=== PATIENT | male | born 1940 | race Hispanic/Latino ===

== ENCOUNTER 2017-01-02 17:14 | Inpatient (IN) | payer MEDICARE ==
--- NOTE | 2017-01-02 17:29 | ED PDOC ---
Arrival/HPI - General Chief Complaint: Anxiety Time Seen by Provider: 01/02/17 17:15 Historian: Patient - History of Present Illness Narrative History of Present Illness (Text): 01/02/17 17:27 76 year old male who denies past medical history presents to the emergency department with shortness of breath and difficulty "catching his breath" for the past three days. Patient states he has had no fever. He also reports cough with yellow sputum. He reports he is a smoker but was never diagnosed with COPD. He states he feels "uneasy in his chest." Time/Duration: < week Symptom Onset: Gradual Symptom Course: Unchanged Modifying Factors (Text): None Past Medical History - Provider Review Nursing Documentation Reviewed: Yes - Psychiatric Hx Substance Use: No (denies) - Surgical History Hx Musculoskeletal Surgery: Yes Family/Social History - Physician Review Nursing Documentation Reviewed: Yes Family/Social History: Unknown Family HX Smoking Status: Heavy Smoker > 10 Cigarettes Daily Hx Alcohol Use: Yes Frequency of alcohol use: Daily Hx Substance Use: No (denies) Allergies/Home Meds Allergies/Adverse Reactions: Allergies No Known Allergies Allergy (Verified 01/02/17 17:22) Home Medications: Home Meds Medication Instructions Recorded Confirmed DiphenhydrAMINE [Benadryl] 25 mg PO DAILY 01/02/17 01/02/17 Oxycodone HCl/Acetaminophen 1 each PO DAILY PRN 01/02/17 01/02/17 [Percocet 10-325 mg Tablet] Review of Systems - Physician Review All systems were reviewed & negative as marked: Yes - Review of Systems Respiratory: SOB, Cough, Sputum Cardiovascular: Other (Uneasiness in chest) Gastrointestinal: absent: Abdominal Pain Physical Exam Vital Signs Reviewed: Yes Vital Signs Temp Pulse Resp BP Pulse Ox 01/02/17 21:36 97.6 F 81 18 161/71 H 95 01/02/17 17:25 97.7 F 91 H 18 168/97 H 97 Temperature: Afebrile Blood Pressure: Normal Pulse: Regular Respiratory Rate: Normal Appearance: Positive for: Well-Appearing, Non-Toxic Pain Distress: None Mental Status: Positive for: Alert and Oriented X 3 - Systems Exam Head: Present: Atraumatic, Normocephalic Pupils: Present: PERRL Extroacular Muscles: Present: EOMI Conjunctiva: Present: Normal Mouth: Present: Moist Mucous Membranes Neck: Present: Normal Range of Motion Respiratory/Chest: Present: Good Air Exchange, Wheezes, Other (Diminished breath sounds bilaterally). No: Respiratory Distress, Accessory Muscle Use Cardiovascular: Present: Regular Rate and Rhythm, Normal S1, S2. No: Murmurs Abdomen: Present: Normal Bowel Sounds. No: Tenderness, Distention, Peritoneal Signs Back: Present: Normal Inspection Upper Extremity: Present: Normal Inspection. No: Cyanosis, Edema Lower Extremity: Present: Normal Inspection. No: Edema Neurological: Present: GCS=15, CN II-XII Intact, Speech Normal Skin: Present: Warm, Dry, Normal Color. No: Rashes Psychiatric: Present: Alert, Oriented x 3, Normal Insight, Normal Concentration Medical Decision Making ED Course and Treatment: Impression: 76 year old male who denies past medical history presents to the emergency department with shortness of breath and difficulty "catching his breath" for the past three days. Differential Diagnosis included but are not limited to: COPD Plan: -- EKG, Chest X-ray -- Duoneb, Solumedrol -- Labs -- Reassess and disposition Progress Notes: - Lab Interpretations Lab Results: 01/03/17 10:30 01/04/17 09:00 Lab Results 01/04/17 09:00: Sodium 133, Chloride 92 L, Potassium 3.4 L, Carbon Dioxide 32, Anion Gap 12, BUN 20, Creatinine 1.0, Est GFR ( Amer) > 60, Est GFR (Non- Af Amer) > 60, Random Glucose 108, Calcium 8.7, Total Bilirubin 0.8, AST 41, ALT 33, Alkaline Phosphatase 63, Total Protein 7.0, Albumin 3.8, Globulin 3.2, Albumin/Globulin Ratio 1.2 01/04/17 07:00: Prostate Specific Ag 0.3, Free T4 0.85, TSH 3rd Generation 1.24 01/04/17 07:00: Magnesium 2.4 H 01/03/17 11:40: Triglycerides 32 L, Cholesterol 133, LDL Cholesterol Direct 66, HDL Cholesterol 55 01/03/17 10:30: Sodium 130 L, Chloride 91 L, Potassium 3.0 L, Carbon Dioxide 29 , Anion Gap 13, BUN 17, Creatinine 1.0, Est GFR ( Amer) > 60, Est GFR ( Non-Af Amer) > 60, Random Glucose 238 H, Calcium 8.8, Total Bilirubin 0.8, AST 36, ALT 31, Alkaline Phosphatase 63, Total Protein 6.9, Albumin 3.7, Globulin 3.1, Albumin/Globulin Ratio 1.2 01/03/17 10:30: WBC 8.5 D, RBC 4.80, Hgb 16.3, Hct 44.4, MCV 92.5, MCH 34.0, MCHC 36.7, RDW 13.0, Plt Count 214, MPV 9.8, Gran % 95.8 H, Lymph % (Auto) 2.5 L , [place] % (Auto) 1.7, Eos % (Auto) 0.0 L, Baso % (Auto) 0.0, Gran # 8.12 H, Lymph # 0.2 L, [place] # 0.1, Eos # 0.0, Baso # 0.00 01/02/17 17:35: pO2 58 H, VBG pH 7.42, VBG pCO2 54.0, VBG HCO3 35.0 H, VBG Total CO2 36.7 H, VBG O2 Sat (Calc) 91.3 H, VBG Base Excess 8.7 H, VBG Potassium 3.2 L, Sodium 131.0 L, Chloride 93.0 L, Glucose 103, Lactate 1.1, FiO2 21.0, Venous Blood Potassium 3.2 L 01/02/17 17:35: Sodium 130 L, Chloride 90 L, Potassium 3.1 L, Carbon Dioxide 31 , Anion Gap 12, BUN 14, Creatinine 1.0, Est GFR ( Amer) > 60, Est GFR ( Non-Af Amer) > 60, Random Glucose 98, Calcium 9.0, Magnesium 1.8, Total Bilirubin 0.9, AST 49, ALT 39, Alkaline Phosphatase 82, Lactate Dehydrogenase 557, Total Creatine Kinase 262 H, CK-MB (CK-2) 3.2, CK-MB (CK-2) % Cancelled, Troponin I 0.09, NT-Pro-B Natriuret Pep 1030 H, Total Protein 7.4, Albumin 4.2, Globulin 3.2, Albumin/Globulin Ratio 1.3 01/02/17 17:35: PT 10.5, INR 0.97, APTT 26.6 01/02/17 17:35: WBC 5.4, RBC 5.15, Hgb 17.5, Hct 47.3, MCV 91.8, MCH 34.0, MCHC 37.0, RDW 13.0, Plt Count 233, MPV 9.7, Gran % 54.4, Lymph % (Auto) 28.2, [place] % (Auto) 11.5 H, Eos % (Auto) 5.0, Baso % (Auto) 0.9, Gran # 2.93, Lymph # 1.5, [place] # 0.6, Eos # 0.3, Baso # 0.05 01/02/17 17:25: Urine Color Yellow, Urine Appearance Clear, Urine pH 6.0, Ur Specific [place] 1.010, Urine Protein Trace H, Urine Glucose (UA) Negative, Urine Ketones Negative, Urine Blood Trace-lysed H, Urine Nitrate Negative, Urine Bilirubin Negative, Urine Urobilinogen 0.2, Ur Leukocyte Esterase Negative , Urine RBC 0 - 2, Urine WBC 1 - 3, Ur Epithelial Cells 1 - 3, Urine Bacteria Few 01/02/17 16:30: D-Dimer, Quantitative 0.57 H - RAD Interpretation Radiology Orders: 01/02/17 17:25 CXR [CHEST PORTABLE] [RAD] Stat 01/02/17 19:47 ANGIO CHEST PE PROTOCOL [CT] Stat - EKG Interpretation EKG Interpretation (Text): EKG shows NSR at [address]/T wave changes. Interpreted by me. Interpreted by ED Physician: Yes Type: 12 lead EKG - Medication Orders Current Medication Orders: Albuterol/Ipratropium (Duoneb 3 Mg/0.5 Mg (3 Ml) Ud) 3 ml IH [id number] [facility] Last Admin: 01/05/17 02:55 Dose: Not Given Non-Admin Reason: Patient Refused Amlodipine Besylate (Norvasc) 10 mg PO DAILY [facility] Doxycycline Hyclate (Doryx) 100 mg PO Q12 [facility] PRN Reason: Protocol Last Admin: 01/04/17 21:10 Dose: 100 mg Famotidine (Pepcid) 40 mg PO HS [facility] Last Admin: 01/04/17 21:10 Dose: 40 mg Methylprednisolone (Solu-Medrol) 30 mg IVP Q12 [facility] Last Admin: 01/04/17 21:11 Dose: 30 mg Potassium Chloride (K-Dur 20 Meq Er Tab) 20 meq PO BRK [facility] Last Admin: 01/04/17 09:16 Dose: 20 meq Discontinued Medications Albuterol/Ipratropium (Duoneb 3 Mg/0.5 Mg (3 Ml) Ud) 3 ml IH Q15M [facility] Stop: 01/02/17 18:01 Last Admin: 01/02/17 19:22 Dose: 3 ml Albuterol/Ipratropium (Duoneb 3 Mg/0.5 Mg (3 Ml) Ud) 3 ml IH Q6 [facility] Stop: 01/03/17 12:01 Last Admin: 01/03/17 13:26 Dose: 3 ml Alprazolam (Xanax) 0.25 mg PO STAT STA PRN Reason: Protocol Stop: 01/04/17 11:14 Last Admin: 01/04/17 13:20 Dose: 0.25 mg Amlodipine Besylate (Norvasc) 5 mg PO DAILY [facility] Last Admin: 01/04/17 09:16 Dose: 5 mg Enoxaparin Sodium (Lovenox) 30 mg SC DAILY [facility] PRN Reason: Protocol Last Admin: 01/04/17 09:16 Dose: 30 mg Iohexol (Omnipaque 350 100 Ml) Confirm Administered Dose 350 mg .ROUTE .STK-MED ONE Stop: 01/02/17 19:51 Magnesium Citrate (Citrate Of Mag) 300 ml PO ONCE ONE Stop: 01/03/17 10:37 Last Admin: 01/03/17 12:23 Dose: 300 ml Methylprednisolone (Solu-Medrol) 125 mg IVP STAT STA Stop: 01/02/17 17:26 Last Admin: 01/02/17 17:48 Dose: 125 mg Methylprednisolone (Solu-Medrol) 40 mg IVP Q8 [facility] Last Admin: 01/03/17 05:55 Dose: 40 mg Methylprednisolone (Solu-Medrol) 40 mg IVP Q12 [facility] Last Admin: 01/04/17 09:17 Dose: 40 mg Potassium Chloride (K-Dur 20 Meq Er Tab) 40 meq PO STAT STA Stop: 01/02/17 18:15 Last Admin: 01/02/17 18:34 Dose: 40 meq - Scribe Statement The provider has reviewed the documentation as recorded by the Rena Asencio Provider Scribe Attestation: All medical record entries made by the Rena were at my direction and personally dictated by me. I have reviewed the chart and agree that the record accurately reflects my personal performance of the history, physical exam, medical decision making, and the department course for this patient. I have also personally directed, reviewed, and agree with the discharge instructions and disposition. Disposition/Present on Arrival - Present on Arrival Any Indicators Present on Arrival: No History of DVT/PE: No History of Uncontrolled Diabetes: No Urinary Catheter: No History of Decub. Ulcer: No History Surgical Site Infection Following: None - Disposition Have Diagnosis and Disposition been Completed?: Yes Diagnosis: Dyspnea, COPD (chronic obstructive pulmonary disease), CHF (congestive heart failure) Disposition: HOSPITALIZED Disposition Time: 07:00 Condition: FAIR
[2017-01-02 17:41] LABS: ADD MANUAL DIFF? NO
[2017-01-02 17:48] LABS: VENOUS BLOOD GAS BASE EXCESS 8.7 mmol/L (0.0-2.0); VENOUS BLOOD PH 7.42 (7.32-7.43)
[2017-01-02] MEDS: Albuterol-Ipratrop 3 mg / 0.5 (3 ml) UD IH SCH ×3 (17:48→19:22)
[2017-01-02 17:57] LABS: INR 0.97 (0.93-1.08); PARTIAL THROMBOPLASTIN TIME 26.6 Seconds (23.7-30.8)
[2017-01-02 18:05] LABS: BASO # 0.05 K/mm3 (0.0-2.0); BASO % 0.9 % (0.0-3.0); EOS # 0.3 (0.0-0.7); GRAN # 2.93 (1.4-6.5); GRAN % 54.4 % (50.0-68.0); HEMATOCRIT 47.3 % (42.0-52.0); LYMPH # 1.5 (1.2-3.4); LYMPH % 28.2 % (22.0-35.0); MEAN CELL VOLUME 91.8 fL (80.0-105.0); MEAN PLATELET VOLUME 9.7 fl (7.0-11.0); MONO # 0.6 (0.1-0.6); MONO % 11.5 % (1.0-6.0); PLATELET COUNT 233 10^3/uL (120.0-450.0); WHITE BLOOD COUNT 5.4 10^3/ul (4.5-11.0)
[2017-01-02 18:10] LABS: ALB/GLOB RATIO 1.3 (1.1-1.8); ALKALINE PHOSPHATASE 82 U/L (38-133); ALT/SGPT 39 U/L (7-56); AST/SGOT 49 U/L (15-59); BILIRUBIN,TOTAL 0.9 mg/dL (0.2-1.3); BLOOD UREA NITROGEN 14 mg/dL (7-21); CARBON DIOXIDE 31 mmol/L (21-33); CHLORIDE 90 mmol/L (98-107); GFR AFRICAN-AMERICAN > 60; GLUCOSE,RANDOM 98 mg/dL (70-110); MAGNESIUM 1.8 mg/dL (1.7-2.2); POTASSIUM 3.1 mmol/L (3.6-5.0); SODIUM 130 mmol/L (132-148); TOTAL PROTEIN 7.4 g/dL (5.8-8.3)
[2017-01-02] MEDS ORDERED: Potassium Chloride 20 mEq ER Tab PO STA (18:14)
[2017-01-02 18:22] LABS: TROPONIN I 0.09 ng/mL
--- NOTE | 2017-01-02 18:30 | RAD ---
HISTORY: Shortness of breath COMPARISON: None FINDINGS: LUNGS: The lungs are hyperinflated and there is peribronchial thickening with chronic changes in both lungs. . There is no lobar pneumonia. PLEURA: No significant pleural effusion identified, no pneumothorax apparent. CARDIOVASCULAR: Normal. OSSEOUS STRUCTURES: No significant abnormalities. VISUALIZED UPPER ABDOMEN: Normal. OTHER FINDINGS: None. IMPRESSION: No active pulmonary disease. COPD.
--- NOTE | 2017-01-02 19:06 | ED PDOC ---
Physical Exam Vital Signs Temp Pulse Resp BP Pulse Ox 01/02/17 17:25 97.7 F 91 H 18 168/97 H 97 Medical Decision Making ED Course and Treatment: 01/02/17 19:00 Case signed out to me by Dr. Kelly pending labs, reevaluation 01/02/17 19:[address] Bowser who agrees with admission for new onset COPD. EXAM: CT Angiography Chest With Intravenous Contrast FINDINGS: Artifacts: Motion artifact degrades image quality. Heart, aorta and Pulmonary arteries: The heart is enlarged. There are coronary calcifications. Aorta is normal in caliber. There are calcifications in the arch and great vessels. There is perfusion of the great vessels. There are no central pulmonary emboli. Allowing for patient motion, no peripheral emboli are identified. Lungs and pleural spaces: Trachea and main bronchi are patent. There is minimal scarring at the lung apices. There is nodular apical scarring on the in the medial right apex. There is no focal consolidation. There is dependent atelectasis greatest at the lung bases. There are no effusions. Mediastinum: Esophagus is unremarkable. There are no pathologically enlarged mediastinal or hilar nodes. Thyroid: Thyroid is unremarkable Bones/joints: Bony structures are mildly osteopenic. There are bridging syndesmophytes throughout the thoracic spine. There are bulky osteophytes in the upper lumbar spine. There is partial ankylosis of spinous processes. Soft tissues: unremarkable Upper abdomen: There are no acute abnormalities in the visualized portion of the abdomen. IMPRESSION: Slightly limited by patient motion, no aortic aneurysm or pulmonary embolus; no consolidating pneumonia Additional findings as described above. - Lab Interpretations Lab Results: 01/02/17 17:35 01/02/17 17:35 Lab Results 01/02/17 17:35: pO2 58 H, VBG pH 7.42, VBG pCO2 54.0, VBG HCO3 35.0 H, VBG Total CO2 36.7 H, VBG O2 Sat (Calc) 91.3 H, VBG Base Excess 8.7 H, VBG Potassium 3.2 L, Sodium 131.0 L, Chloride 93.0 L, Glucose 103, Lactate 1.1, FiO2 21.0, Venous Blood Potassium 3.2 L 01/02/17 17:35: Sodium 130 L, Chloride 90 L, Potassium 3.1 L, Carbon Dioxide 31 , Anion Gap 12, BUN 14, Creatinine 1.0, Est GFR ( Amer) > 60, Est GFR ( Non-Af Amer) > 60, Random Glucose 98, Calcium 9.0, Magnesium 1.8, Total Bilirubin 0.9, AST 49, ALT 39, Alkaline Phosphatase 82, Lactate Dehydrogenase 557, Total Creatine Kinase 262 H, CK-MB (CK-2) 3.2, CK-MB (CK-2) % Cancelled, Troponin I 0.09, NT-Pro-B Natriuret Pep 1030 H, Total Protein 7.4, Albumin 4.2, Globulin 3.2, Albumin/Globulin Ratio 1.3 01/02/17 17:35: PT 10.5, INR 0.97, APTT 26.6 01/02/17 17:35: WBC 5.4, RBC 5.15, Hgb 17.5, Hct 47.3, MCV 91.8, MCH 34.0, MCHC 37.0, RDW 13.0, Plt Count 233, MPV 9.7, Gran % 54.4, Lymph % (Auto) 28.2, [place] % (Auto) 11.5 H, Eos % (Auto) 5.0, Baso % (Auto) 0.9, Gran # 2.93, Lymph # 1.5, [place] # 0.6, Eos # 0.3, Baso # 0.05 01/02/17 17:25: Urine Color Yellow, Urine Appearance Clear, Urine pH 6.0, Ur Specific [place] 1.010, Urine Protein Trace H, Urine Glucose (UA) Negative, Urine Ketones Negative, Urine Blood Trace-lysed H, Urine Nitrate Negative, Urine Bilirubin Negative, Urine Urobilinogen 0.2, Ur Leukocyte Esterase Negative , Urine RBC 0 - 2, Urine WBC 1 - 3, Ur Epithelial Cells 1 - 3, Urine Bacteria Few 01/02/17 16:30: D-Dimer, Quantitative 0.57 H - RAD Interpretation Radiology Orders: 01/02/17 17:25 CXR [CHEST PORTABLE] [RAD] Stat - Medication Orders Current Medication Orders: Discontinued Medications Albuterol/Ipratropium (Duoneb 3 Mg/0.5 Mg (3 Ml) Ud) 3 ml IH Q15M [facility] Stop: 01/02/17 18:01 Last Admin: 01/02/17 19:22 Dose: 3 ml Iohexol (Omnipaque 350 100 Ml) Confirm Administered Dose 350 mg .ROUTE .STK-MED ONE Stop: 01/02/17 19:51 Methylprednisolone (Solu-Medrol) 125 mg IVP STAT STA Stop: 01/02/17 17:26 Last Admin: 01/02/17 17:48 Dose: 125 mg Potassium Chloride (K-Dur 20 Meq Er Tab) 40 meq PO STAT STA Stop: 01/02/17 18:15 Last Admin: 01/02/17 18:34 Dose: 40 meq Disposition/Present on Arrival - Present on Arrival Any Indicators Present on Arrival: No History of DVT/PE: No History of Uncontrolled Diabetes: No Urinary Catheter: No History of Decub. Ulcer: No History Surgical Site Infection Following: None - Disposition Have Diagnosis and Disposition been Completed?: Yes Diagnosis: Dyspnea, COPD (chronic obstructive pulmonary disease), CHF (congestive heart failure) Disposition: HOSPITALIZED Disposition Time: 19:49 Condition: FAIR
[2017-01-02] MEDS ORDERED: Iohexol 350 MG/100 ML VIAL ONE (19:50)
[2017-01-02 20:01] LABS: URINE BILIRUBIN NEGATIVE (NEGATIVE); URINE BLOOD TRACE-LYSED (NEGATIVE); URINE GLUCOSE (UA) NEGATIVE (NEGATIVE); URINE KETONE NEGATIVE (NEGATIVE); URINE LEUKOCYTE ESTERASE NEGATIVE Leu/uL (NEGATIVE); URINE PROTEIN TRACE mg/dL (<30 mg/dL); URINE UROBILINOGEN 0.2 E.U./dL (<1 E.U./dL)
[2017-01-02 20:02] LABS: URINE APPEARANCE CLEAR (CLEAR); URINE COLOR YELLOW (YELLOW)
[2017-01-02 20:18] LABS: URINE BACTERIA FEW (NEG); URINE RBC 0 - 2 /hpf (0-2)
--- NOTE | 2017-01-02 21:15 | CT ---
EXAM: CT Angiography Chest With Intravenous Contrast CLINICAL HISTORY: 76 years old, male; Signs and symptoms; Shortness of breath; Additional info: SOB +ddimer TECHNIQUE: Axial computed tomographic angiography images of the chest with intravenous contrast using pulmonary embolism protocol. This CT exam was performed using one or more of the following dose reduction techniques: automated exposure control, adjustment of the mA and/or kV according to patient size, and/or use of iterative reconstruction technique. MIP reconstructed images were created and reviewed. Coronal and sagittal reformatted images were created and reviewed. CONTRAST: 100 mL of OMNI administered intravenously. EXAM DATE/TIME: 01/02/2017 7:47 PM COMPARISON: DX - CHEST PORTABLE 01/02/2017 5:24:42 PM FINDINGS: Artifacts: Motion artifact degrades image quality. Heart, aorta and Pulmonary arteries: The heart is enlarged. There are coronary calcifications. Aorta is normal in caliber. There are calcifications in the arch and great vessels. There is perfusion of the great vessels. There are no central pulmonary emboli. Allowing for patient motion, no peripheral emboli are identified. Lungs and pleural spaces: Trachea and main bronchi are patent. There is minimal scarring at the lung apices. There is nodular apical scarring on the in the medial right apex. There is no focal consolidation. There is dependent atelectasis greatest at the lung bases. There are no effusions. Mediastinum: Esophagus is unremarkable. There are no pathologically enlarged mediastinal or hilar nodes. Thyroid: Thyroid is unremarkable Bones/joints: Bony structures are mildly osteopenic. There are bridging syndesmophytes throughout the thoracic spine. There are bulky osteophytes in the upper lumbar spine. There is partial ankylosis of spinous processes. Soft tissues: unremarkable Upper abdomen: There are no acute abnormalities in the visualized portion of the abdomen. IMPRESSION: Slightly limited by patient motion, no aortic aneurysm or pulmonary embolus; no consolidating pneumonia Additional findings as described above.
[2017-01-02] MEDS: MethylPREDNISolone 40 mg Vial IVP SCH (22:43)
[2017-01-03] MEDS: Albuterol-Ipratrop 3 mg / 0.5 (3 ml) UD IH SCH ×5 (02:04→19:45)
[2017-01-03 03:46] VITALS: BMI 25.9
[2017-01-03] MEDS: MethylPREDNISolone 40 mg Vial IVP SCH ×2 (05:55→21:37)
[2017-01-03] MEDS: Enoxaparin 30 mg Syringe SC SCH (09:35)
[2017-01-03 10:36] LABS: ADD MANUAL DIFF? NO
[2017-01-03] MEDS ORDERED: Magnesium Citrate Oral SOL (300 ml) PO ONE (10:36)
[2017-01-03 10:44] LABS: GRAN # 8.12 (1.4-6.5); GRAN % 95.8 % (50.0-68.0); HEMATOCRIT 44.4 % (42.0-52.0); LYMPH # 0.2 (1.2-3.4); LYMPH % 2.5 % (22.0-35.0); MEAN CELL VOLUME 92.5 fL (80.0-105.0); MEAN CORPUSCULAR HGB CONC 36.7 g/dl (31.0-37.0); MEAN PLATELET VOLUME 9.8 fl (7.0-11.0); MONO # 0.1 (0.1-0.6); MONO % 1.7 % (1.0-6.0); PLATELET COUNT 214 10^3/uL (120.0-450.0); WHITE BLOOD COUNT 8.5 10^3/ul (4.5-11.0)
[2017-01-03 10:47] LABS: ALB/GLOB RATIO 1.2 (1.1-1.8); ALKALINE PHOSPHATASE 63 U/L (38-133); ALT/SGPT 31 U/L (7-56); AST/SGOT 36 U/L (15-59); BILIRUBIN,TOTAL 0.8 mg/dL (0.2-1.3); BLOOD UREA NITROGEN 17 mg/dL (7-21); CALCIUM 8.8 mg/dL (8.4-10.5); CARBON DIOXIDE 29 mmol/L (21-33); CHLORIDE 91 mmol/L (98-107); GFR AFRICAN-AMERICAN > 60; GLUCOSE,RANDOM 238 mg/dL (70-110); SODIUM 130 mmol/L (132-148); TOTAL PROTEIN 6.9 g/dL (5.8-8.3)
[2017-01-03 11:57] LABS: CHOLESTEROL 133 mg/dL (130-200)
[2017-01-03] MEDS: Potassium Chloride 20 mEq ER Tab PO SCH (12:23)
--- NOTE | 2017-01-03 15:43 | HP ---
HISTORY OF PRESENT ILLNESS: The patient is a 76-year-old white male who came to Emergency Room [facility] of increasing cough, congestion, shortness of breath. He states he felt terrible. He has never fe lt like this in his life. He was unable to catch his breath. Going on for the last 3 days, but yest erday he could not take it anymore, so he decided to come to the Emergency Room. Denies any fever, n o chills, no nausea, vomiting, or diarrhea, no exposure to any sick person. No recent travel abroad. Complained of having a productive cough with yellow phlegm. PAST MEDICAL HISTORY: Significant for chronic back pain and intermittent bronchitis. ALLERGIES: Not allergic to any medications. MEDICATIONS AT HOME: He is on Percocet as needed and Benadryl as needed for his itching. SOCIAL HISTORY: Lives by himself. Denies drug abuse; however, he does smoke very heavy. He has bee n smoking 1 pack per day for the last 40 years and he socially drinks. REVIEW OF SYSTEMS: Significant for cough and congestion. PHYSICAL EXAMINATION: GENERAL: He is awake and alert, able to communicate. VITAL SIGNS: He is afebrile, pulse 81, respirations 18, blood pressure 161/71. LUNGS: Bilateral fair airflow, no rhonchi or crackle. HEART: S1, S2 audible. ABDOMEN: Soft, nontender, no rebound, no guarding. NEUROLOGIC: The patient is awake and alert, able to communicate, and ambulatory. EXTREMITIES: No leg edema. LABORATORY DATA: WBC 8.5, hemoglobin 16, hematocrit 44, platelets 214. Chemistry: Sodium 130, pota ssium 3.0, chloride 91, CO2 29, BUN 17, creatinine 1.0, blood sugar of 238. BNP 1030. Had CT scan of the chest done that shows study limited because of motion artifact. No aortic aneurys m, no pulmonary embolus, no consolidation, or pneumonia seen. ASSESSMENT: 1. Chronic obstructive pulmonary disease exacerbation. 2. Asthmatic bronchitis. 3. Hypertension. 4. Hyperglycemia, secondary to steroids. 5. Constipation. PLAN: Given magnesium citrate. Continue him on doxycycline, nebulizer treatment every 6 hours. Con tinue him on IV steroids. Start him on Norvasc and supplement his potassium. Follow up his electrol ytes in a.m. The patient wanted to go home early. We will reevaluate in a.m. and make discharge plan , if he is stable. Zhanna Herrera MD cc: [phone] TT: 01/03/2017 15:42:45 ln
--- NOTE | 2017-01-03 16:02 | CARD ---
APPROVED REPORT EKG Measurement Heart [id number] <Conclusion> Sinus rhythm with premature atrial complexes Otherwise normal ECG
--- NOTE | 2017-01-03 20:52 | CON ---
DATE: 01/03/2017 REFERRING PHYSICIAN: Dr. Jarocho Bowser. REASON FOR CONSULT: Cough, shortness of breath, multiple night awakening, may have sleep apnea syndr ome. HISTORY OF PRESENT ILLNESS: This is a 76-year-old gentleman with a past medical history significant for chronic back pain, chronic bronchitis, active smoker, comes in to the Emergency Room because of t he last 3-4 days has been having rhinitis, cough, shortness of breath and wheezing. In the ER, recei cheng IV and inhaled bronchodilator with some benefit but persistent shortness of breath stay in the hospital. Admits to have snoring, multiple night awakening, daytime sleepy and tired. PAST MEDICAL HISTORY: Chronic back pain, chronic bronchitis. ALLERGIES: None known. SOCIAL HISTORY: Positive history of smoking. Denying alcohol abuse. FAMILY HISTORY: No significant cardiopulmonary disease reported. MEDICATIONS: He is on doxycycline 100 mg twice a day, DuoNeb q.6 hours, potassium 20 mEq daily, Love nox 30 mg daily, Norvasc 5 mg daily, Pepcid 40 mg at bedtime, Solu-Medrol 40 mg q.12 hours. REVIEW OF SYSTEMS: No headache. Has some rhinitis, sore throat, cough, clear sputum, wheezing and s hortness of breath, improved compared to yesterday. No nausea, no vomiting, no diarrhea, no leg pain or leg swelling. Admits to multiple awakening, daytime sleepy. Positive snoring. PHYSICAL EXAMINATION: GENERAL: Lying in the bed in no acute distress. VITAL SIGNS: Temp is 98, heart rate 81, respiratory rate is 20, blood pressure 164/82, pulse ox 95% on room air. HEENT: Moist mucous membranes. Crowded airway. Mallampati score is 4. NECK: Supple. No JVD. LUNGS: Has a prolonged expiratory phase with wheezing. HEART: S1, S2. ABDOMEN: Soft, nontender. No organomegaly. EXTREMITIES: No edema. NEUROLOGIC: Awake, alert, follows simple commands. LABORATORY DATA: Shows hemoglobin 16.3, hematocrit 44.4, WBC 8.5, platelet is 214. INR is 0.97. PT T is 27. Blood gases done yesterday shows pH 7.42, pCO2 54, O2 of 58; that was on nasal cannula. So dium 130, potassium 3.0, chloride 91, bicarbonate 29, BUN 17, creatinine 1.0, glucose 238, calcium 8. 8, AST 36, ALT 31, . Albumin is 3.7. Triglyceride is 32, cholesterol is 133. Repeat CAT scan of the chest done, which shows no apparent pulmonary embolism, with minimal scarring in the lung apic es, there is nodular apical scarring on the medial right apex, and some atelectasis. IMPRESSION AND PLAN: Exacerbation of chronic obstructive lung disease, may have sleep apnea syndrome , hypertension, hyperglycemia. Clinically he feels better. Would continue IV and inhaled bronchodil ator. Gastric and deep venous thrombosis prophylaxis. The patient is urged to stop smoking. Will b enefit from outpatient attended sleep study and PFT. If blood pressure is persistently high, may hav e add antihypertensive medication. Will give him another day or so. Thank you and will follow with you. Supa Hatch MD cc: [phone] TT: 01/03/2017 20:52:05 Confirmation # [id number] Dictation # [id number] michael
[2017-01-04] MEDS: Albuterol-Ipratrop 3 mg / 0.5 (3 ml) UD IH SCH ×4 (02:40→20:24)
[2017-01-04 09:16] LABS: FREE T4 0.85 ng/dL (0.78-2.19)
[2017-01-04] MEDS: Enoxaparin 30 mg Syringe SC SCH (09:16)
[2017-01-04] MEDS: Potassium Chloride 20 mEq ER Tab PO SCH (09:16)
[2017-01-04] MEDS: MethylPREDNISolone 40 mg Vial IVP SCH ×2 (09:17→21:11)
[2017-01-04 09:27] LABS: ALB/GLOB RATIO 1.2 (1.1-1.8); ALKALINE PHOSPHATASE 63 U/L (38-133); ALT/SGPT 33 U/L (7-56); AST/SGOT 41 U/L (15-59); BILIRUBIN,TOTAL 0.8 mg/dL (0.2-1.3); BLOOD UREA NITROGEN 20 mg/dL (7-21); CALCIUM 8.7 mg/dL (8.4-10.5); CARBON DIOXIDE 32 mmol/L (21-33); CHLORIDE 92 mmol/L (98-107); GFR AFRICAN-AMERICAN > 60; GLUCOSE,RANDOM 108 mg/dL (70-110); POTASSIUM 3.4 mmol/L (3.6-5.0); SODIUM 133 mmol/L (132-148)
[2017-01-04 09:30] LABS: PROSTATE SPECIFIC ANTIGEN 0.3 ng/mL (0.00-2.5)
[2017-01-04 12:16] LABS: THYROID STIMULATING HORMONE 1.24 mIU/mL (0.46-4.68)
--- NOTE | 2017-01-04 13:39 | PN ---
DATE: 01/04/2017 SUBJECTIVE: The patient is a 76-year-old, seen and examined, ambulatory, not in any distress. Cough seems to be better. He states he feels a lot better. PHYSICAL EXAMINATION: VITAL SIGNS: He is afebrile, pulse 91, respirations 18, blood pressure 162/82. LUNGS: Bilateral diffusely decreased breath sounds expiratory rhonchi. HEART: S1, S2 audible. ABDOMEN: Soft, nontender, no rebound, no guarding. NEUROLOGIC: He is awake and alert, communicative, ambulatory. LABORATORY: His sodium is 133, potassium 3.4, chloride 92, CO2 32, BUN 20, creatinine 1.0, blood sug ar 108. Urinalysis is negative. He had CT scan of the chest done that does not show any consolidati on. ASSESSMENT: 1. Chronic obstructive pulmonary disease exacerbation. 2. Electrolyte imbalance. 3. Anxiety disorder. 4. Hyperglycemia associated with steroids. 5. Hypertension. 6. Constipation. PLAN: We will continue patient on doxycycline. He is getting nebulizer treatments. He is given pot assium. The patient is quite ambulatory, does not need to be on Lovenox. We will discontinue that. I will increase his amlodipine from 5 to 10 mg. He is on prednisone 40 mg twice a day, will cut estrellita n to 30 b.i.d. If the patient remains stable, he can be discharged home in a.m. Zhanna Herrera MD cc: [phone] TT: 01/04/2017 13:38:48 Confirmation # [id number] Dictation # [id number] ln
--- NOTE | 2017-01-04 22:44 | PN ---
DATE: 01/04/2017 REFERRING PHYSICIAN: Dr. Jarocho Bowser SUBJECTIVE: He is sitting side of the bed, feels much better, decreased cough, decreased shortness o f breath. No more hemoptysis, leg pain, or leg swelling. Admitted to snoring at nighttime, daytime sleepy and tired. OBJECTIVE: GENERAL: No acute distress. VITAL SIGNS: Temperature is 98, heart rate is , respiratory rate is 20, blood pressure 160s ove r 78, pulse ox 97% on room air. HEENT: Moist mucous membranes. Crowded airway. Mallampati score is 4. NECK: Supple. No JVD. LUNGS: Prolonged expiratory phase with few rhonchi. HEART: S1, S2. ABDOMEN: Soft, nontender. No organomegaly. EXTREMITIES: There is no edema. NEUROLOGIC: Awake, alert, follows simple commands. MEDICATIONS: He is on doxycycline 100 mg twice a day, DuoNeb q. 6 hours, potassium 20 mEq daily, Nor vasc 10 mg daily, Pepcid 40 mg daily, Solu-Medrol mg q. 12 hours. LABORATORY DATA: Reviewed and noted. Sodium 133, potassium 3.4, chloride 92, bicarbonate 32, BUN 20 , creatinine 1.7, glucose is 108, AST 41, ALT 43, alk phos , albumin is 3.8. CT of the chest is done, which shows it slightly limited because of the motion artifact. No pulmonary embolism. IMPRESSION AND PLAN: Exacerbation of chronic obstructive lung disease, may have sleep apnea syndrome , hypertension, hyperglycemia. Pulmonary point of view, doing okay. Will decrease IV bronchodilator . Continue inhaled bronchodilator, antibiotics. Gastric prophylaxis. Deep venous thrombosis prophy laxis. Should get attended sleep study as outpatient. Thank you and will follow with you. Supa Hatch MD cc: [id number] TT: 01/04/2017 22:43:48 Confirmation # [id number] Dictation # [id number]
[2017-01-05] MEDS: Albuterol-Ipratrop 3 mg / 0.5 (3 ml) UD IH SCH ×3 (02:55→13:44)
[2017-01-05] MEDS: Potassium Chloride 20 mEq ER Tab PO SCH (08:20)
[2017-01-05 08:30] VITALS: BP 157/74; PULSE 84; RESP 18; TEMP 98.7; O2SAT 95
--- NOTE | 2017-01-05 09:06 | DS ---
This is a 76-year-old male who had come into the hospital because of an acute COPD exacerbation. The patient had a CT of the chest done and it showed it was limited by patient motion. There is no pulm onary embolism or aneurysms that were identified. The patient had improvement of his symptoms. He h as no complaints of any headaches, no dizziness, no nausea. PHYSICAL EXAMINATION: VITAL SIGNS: Temperature is 97.5, pulse of 98, blood pressure is 162/78, respirations 20. GENERAL: The patient comfortable, in no acute distress. HEENT: Anicteric sclerae. Moist mucosa. NECK: No JVD or adenopathy. CARDIAC: S1/S2. No murmurs. No rubs. Regular. RESPIRATORY: Clear to auscultation bilaterally. No wheezes, rales, or rhonchi. Good air entry. ABDOMEN: Bowel sounds are positive, soft, nontender, and nondistended. EXTREMITIES: No edema. Has 1+ pulses. ASSESSMENT: 1. Acute chronic obstructive pulmonary disease exacerbation. 2. Hypertension, uncontrolled. 3. Hyperglycemia. 4. Hypokalemia. 5. Anxiety disorder. 6. Constipation. PLAN: The patient is on amlodipine for hypertension. He had his Norvasc increased. I will add on l isinopril for his hypertension. He is on Solu-Medrol. He is on Pepcid. He is on a heart healthy di et. He is going to follow up as an outpatient for reevaluation of his hypertension. CONDITION: Stable. ACTIVITY: Increase as tolerated. He is going to be on doxycycline for antibiotics. Jarocho Bowser MD cc: [id number] TT: 01/05/2017 09:05:52 en
[2017-01-05] MEDS: MethylPREDNISolone 40 mg Vial IVP SCH (10:54)
--- NOTE | 2017-01-07 13:52 | PQF CHF ---
01/07/17 Dr. Bowser, ED note documents CHF. Do you agree with this diagnosis? If you agree, please indicate type and severity of CHF and whether this was present on admission. Thank you. no CHF Clarification of your documentation is requested to better reflect the severity of illness and intensity of treatment of your patient. Indicators present [] Diagnosis of CHF and/or history of CHF [] BNP > 200 [] Imaging Finding of Pulmonary Edema /Pleural Effusions [] Fluid/Volume Overload [] Pitting edema [] Ejection Fraction < 40% (Indicative of Systolic Heart Failure) [] Ejection Fraction > 40% (Indicative of Diastolic Heart Failure) [] Dyspnea / Orthopenea / Paroxysmal Nocturnal Dyspnea [] Other: Location in the medical record that reflects the above clinical findings: [] Treatment Provided: [] PHYSICIAN'S RESPONSE Based on your medical judgment of the clinical indicators outlined above, are you treating this patient for a known or suspected: [] Acute CHF [] Systolic [] Diastolic [] Combined [] Chronic CHF [] Systolic [] Diastolic [] Combined [] Acute on Chronic CHF []Systolic [] Diastolic [] Combined [] CHF due hypertension [] Acute systolic []Chronic systolic [] Acute/ chronic systolic [] Other, please indicate: [] [] If Unable to Determine, please check the box, sign and date. Present On Admission (POA) Indicator: [] Present at the time of admission [] Not present at the time of admission [] Clinically Undetermined In responding to this query, please exercise your independent professional judgment. The fact that a question is asked does not imply that any particular answer is desired or expected. Thank you for your clarification on this documentation. If you have any questions please call:[ ] * Thank you, [ ] roll panner SYDNEE
== END 2017-01-05 14:17 | disposition home or self-care (01) | DRG 192 ==
LOC: ED 17:14 → ERH 19:47 → 5RSO 22:55 → OBSVTOIN 01-04 13:34
PROVIDERS: ADMIT Internal Medicine Nephrology; ATTEND Internal Medicine Nephrology
DX: J44.1 Chronic obstructive pulmonary disease with (acute) exacerbation (principal); I11.0 Hypertensive heart disease with heart failure; R06.83 Snoring; E87.8 Other disorders of electrolyte and fluid balance, not elsewhere classified; R73.9 Hyperglycemia, unspecified; E87.6 Hypokalemia; F41.9 Anxiety disorder, unspecified; K59.00 Constipation, unspecified; J31.0 Chronic rhinitis; F17.210 Nicotine dependence, cigarettes, uncomplicated; T38.0X5A Adverse effect of glucocorticoids and synthetic analogues, initial encounter; R40.2412 Glasgow coma scale score 13-15, at arrival to emergency department; M54.9 Dorsalgia, unspecified; G47.30 Sleep apnea, unspecified

== ENCOUNTER 2017-04-30 12:12 | Inpatient (IN) | payer MEDICARE, OTHER ==
[2017-04-30] MEDS: Nitroglycerin 2% Ointment Foilpak UD TOP SCH (12:31)
[2017-04-30 12:33] VITALS: BMI 23.4
--- NOTE | 2017-04-30 12:44 | ED PDOC ---
Arrival/HPI - General Time Seen by Provider: 04/30/17 12:15 Historian: Patient - History of Present Illness Narrative History of Present Illness (Text): 04/30/17 12:44 A 77 year old male brought into the emergency department by EMS for evaluation after fall. Patient reports multiple falls recently. He notes feeling dizzy prior to todays episode. Patient complains of chronic back pain but denies any injuries, loss of consciousness, head trauma, headache, neck pain, fever, chills , nausea, vomiting, abdominal pain, chest pain, shortness of breath or any other complaints. PMD: Dr. Bowser Time/Duration: Prior to Arrival Symptom Course: Unchanged Quality: Other Context: Home Past Medical History - Provider Review Nursing Documentation Reviewed: Yes - Musculoskeletal/Rheumatological Hx Falls: No - Psychiatric Hx Substance Use: No (denies) - Surgical History Hx Musculoskeletal Surgery: Yes Family/Social History - Physician Review Nursing Documentation Reviewed: Yes Family/Social History: No Known Family HX Smoking Status: Heavy Smoker > 10 Cigarettes Daily Hx Alcohol Use: Yes Hx Substance Use: No (denies) Allergies/Home Meds Allergies/Adverse Reactions: Allergies No Known Allergies Allergy (Verified 04/30/17 12:28) Home Medications: Home Meds Medication Instructions Recorded Confirmed Unobtainable 04/30/17 04/30/17 Review of Systems - Physician Review All systems were reviewed & negative as marked: Yes - Review of Systems Constitutional: absent: Fevers, Night Sweats Respiratory: absent: SOB Cardiovascular: absent: Chest Pain Gastrointestinal: absent: Abdominal Pain, Nausea, Vomiting Musculoskeletal: Back Pain (chronic). absent: Neck Pain Neurological: Dizziness. absent: Headache Physical Exam Vital Signs Reviewed: Yes Vital Signs Temp Pulse Resp BP Pulse Ox 04/30/17 16:06 91 H 20 192/96 H 94 L 04/30/17 13:20 98.2 F 04/30/17 12:38 84 19 177/89 H 95 Blood Pressure: Hypertensive Pulse: Regular Respiratory Rate: Normal Appearance: Positive for: Well-Appearing, Non-Toxic, Comfortable Pain Distress: None Mental Status: Positive for: Alert and Oriented X 3 - Systems Exam Head: Present: Atraumatic, Normocephalic Pupils: Present: PERRL Extroacular Muscles: Present: EOMI Conjunctiva: Present: Normal Mouth: Present: Moist Mucous Membranes Neck: Present: Normal Range of Motion. No: MIDLINE TENDERNESS, Paraspinal Tenderness Respiratory/Chest: Present: Clear to Auscultation, Good Air Exchange. No: Respiratory Distress, Accessory Muscle Use Cardiovascular: Present: Regular Rate and Rhythm, Normal S1, S2. No: Murmurs Abdomen: Present: Normal Bowel Sounds. No: Tenderness, Distention, Peritoneal Signs Back: Present: Normal Inspection Upper Extremity: Present: Normal Inspection, Normal ROM, NORMAL PULSES. No: Cyanosis, Edema Lower Extremity: Present: Normal Inspection, NORMAL PULSES, Normal ROM. No: Edema Neurological: Present: GCS=15, CN II-XII Intact, Speech Normal Skin: Present: Warm, Dry, Normal Color. No: Rashes Psychiatric: Present: Alert, Oriented x 3, Normal Insight, Normal Concentration Medical Decision Making ED Course and Treatment: 04/30/17 12:44 Impression: A 77 year old male brought in for evaluation after multiple falls. Patient reports dizzy prior to fall today. Plan: -- Head CT -- Chest xray -- EKG -- Labs -- Urinalysis -- Reassess and disposition Progress Notes: Report Date : 04/30/2017 13:41:27 Procedure: Chest xray Dictator : Celestine Quevedo MD IMPRESSION: No active disease. - Lab Interpretations Lab Results: 04/30/17 12:40 04/30/17 12:40 Lab Results 04/30/17 12:40: Sodium 117 L*, Potassium 1.9 L* D, Chloride 69 L D, Carbon Dioxide 37 H, Anion Gap 13, BUN 15, Creatinine 1.0, Est GFR ( Amer) > 60 , Est GFR (Non-Af Amer) > 60, Random Glucose 119 H, Calcium 8.9, Magnesium 1.5 L , Total Bilirubin 1.2, AST 47, ALT 32, Alkaline Phosphatase 77, Lactate Dehydrogenase 601, Total Creatine Kinase 225, Troponin I 0.17 H* D, Total Protein 7.3, Albumin 4.3, Globulin 3.0, Albumin/Globulin Ratio 1.4 04/30/17 12:40: PT 11.2, INR 1.04, APTT 26.8 04/30/17 12:40: WBC 11.5 H D, RBC 4.17, Hgb 14.5, Hct 37.5 L, MCV 89.9, MCH 34.8 , MCHC 38.7 H, RDW 12.0, Plt Count 294, MPV 9.8, Gran % 86.6 H, Lymph % (Auto) 3.9 L, [place] % (Auto) 9.4 H, Eos % (Auto) 0.0 L, Baso % (Auto) 0.1, Gran # 9.92 H , Lymph # 0.5 L, [place] # 1.1 H, Eos # 0.0, Baso # 0.01, Neutrophils % (Manual) 86 H, Band Neutrophils % 1, Lymphocytes % (Manual) 4 L, Monocytes % (Manual) 9 H , Platelet Evaluation Normal I have reviewed the lab results: Yes - RAD Interpretation Radiology Orders: 04/30/17 12:44 CHEST PORTABLE [RAD] Stat 04/30/17 12:45 HEAD W/O CONTRAST [CT] Stat - Medication Orders Current Medication Orders: Heparin Sodium (Porcine) (Heparin) 5,000 units SC Q8H SILVIA PRN Reason: Protocol Last Admin: 04/30/17 23:27 Dose: 5,000 units MAR aPTT Document 04/30/17 23:27 J (Rec: 04/30/17 23:27 [email or web address] aPTT aPTT (secs) 27 Subcutaneous Administrations Document 04/30/17 23:27 J (Rec: 04/30/17 23:27 [email or web address]) Injection Site MAR Injection Site Right Deltoid Charges for Administration # of Subcutaneous Administrations 1 Hydralazine HCl (Apresoline) 10 mg IVP Q6 PRN PRN Reason: SBP> 160 Last Admin: 05/01/17 02:56 Dose: 10 mg IVP Administration Document 05/01/17 02:56 J (Rec: 05/01/17 02:56 [email or web address] Charges for Administration # of IVP Administrations 1 MAR Pulse and Blood Pressure Document 05/01/17 02:56 JZI (Rec: 05/01/17 02:56 [email or web address]) Pulse Pulse Rate (60-90) 69 Blood Pressure Blood Pressure (100/60-150/90) 172/87 Sodium Chloride (Sodium Chloride 0.9%) 1,000 mls @ 100 mls/hr IV .Q10H SILVIA Last Admin: 04/30/17 21:06 Dose: 100 mls/hr eMAR Start Stop Document 04/30/17 21:06 [facility] (Rec: 04/30/17 21:06 [email or web address]) Intravenous Solution Start Date 04/30/17 Start Time 21:06 Discontinued Medications Acetaminophen (Tylenol 325mg Tab) 650 mg PO STAT STA Stop: 04/30/17 23:06 Last Admin: 04/30/17 23:15 Dose: 650 mg MAR Pain/Vitals Document 04/30/17 23:15 [facility] (Rec: 04/30/17 23:16 [email or web address] Pain Reassessment Is This A Pain ReAssessment? No Sleep Is patient sleeping during reassessment? No Presence of Pain Presence of Pain Yes Location Left, Right or Bilateral Bilateral Pain Location Body Occupational Medicine Officer Description Constant Intensity 5 Scale Used Numeric Radiation Location HEADACHE Alleviating Factors Medication Vitals Temperature (97.6 F-99.6 F) 98.1 F Temperature Source Oral Albuterol/Ipratropium (Duoneb 3 Mg/0.5 Mg (3 Ml) Ud) 3 ml IH Q6H SILVIA Stop: 05/01/17 03:31 Last Admin: 04/30/17 21:00 Dose: Not Given Non-Admin Reason: Patient Refused Aspirin (Aspirin) 325 mg PO STAT STA Stop: 04/30/17 14:32 Last Admin: 04/30/17 16:11 Dose: 325 mg Hydralazine HCl (Apresoline) 10 mg IVP ONCE ONE Stop: 05/01/17 05:25 Last Admin: 05/01/17 05:28 Dose: 10 mg IVP Administration Document 05/01/17 05:28 [place] (Rec: 05/01/17 05:29 [email or web address]) Charges for Administration # of IVP Administrations 1 MAR Pulse and Blood Pressure Document 05/01/17 05:28 [place] (Rec: 05/01/17 05:29 [email or web address]) Pulse Pulse Rate (60-90) 83 Blood Pressure Blood Pressure (100/60-150/90) 191/89 Potassium Chloride (Potassium Chloride 10 Meq/100 Ml) 10 meq in 100 mls @ 100 mls/hr IVPB Q2H SILVIA Stop: 04/30/17 16:44 Last Admin: 04/30/17 16:12 Dose: 100 mls/hr eMAR Start Stop Document 04/30/17 16:12 NH (Rec: 04/30/17 16:12 NH [id number]) Intravenous Solution Start Date 04/30/17 Start Time 16:12 End Date 04/30/17 End time 17:12 Total Infusion Time 60 Sodium Chloride (Sodium Chloride 0.9%) 1,000 mls @ 100 mls/hr IV .Q10H SILVIA Last Admin: 04/30/17 14:49 Dose: 100 mls/hr eMAR Start Stop Document 04/30/17 14:49 MR (Rec: 04/30/17 14:49 [id number]) Intravenous Solution Start Date 04/30/17 Start Time 14:49 Magnesium Sulfate/Dextrose (Magnesium Sulfate 1 Gm/100 Ml D5w) 1 gm in 100 mls @ 100 mls/hr IVPB ONCE ONE Stop: 04/30/17 14:43 Last Admin: 04/30/17 14:49 Dose: 100 mls/hr eMAR Start Stop Document 04/30/17 14:49 MR (Rec: 04/30/17 14:49 [id number]) Intravenous Solution Start Date 04/30/17 Start Time 14:49 End Date 04/30/17 End time 15:49 Total Infusion Time 60 Potassium Chloride (Potassium Chloride 20 Meq/100 Ml) 20 meq in 100 mls @ 50 mls/hr IVPB Q2H SILVIA Stop: 04/30/17 19:29 Last Admin: 04/30/17 20:23 Dose: 50 mls/hr eMAR Start Stop Document 04/30/17 20:23 JZI (Rec: 04/30/17 20:23 [email or web address]) Intravenous Solution Start Date 04/30/17 Start Time 20:23 End Date 04/30/17 End time 22:23 Total Infusion Time 120 Potassium Chloride (Potassium Chloride 20 Meq/100 Ml) 20 meq in 100 mls @ 50 mls/hr IVPB Q2H SILVIA Stop: 04/30/17 23:59 Last Admin: 05/01/17 01:19 Dose: 50 mls/hr eMAR Start Stop Document 05/01/17 01:19 KTR (Rec: 05/01/17 01:19 KTR [id number]) Intravenous Solution Start Date 05/01/17 Start Time 01:19 Potassium Chloride (Potassium Chloride 20 Meq/100 Ml) 20 meq in 100 mls @ 50 mls/hr IVPB Q2H SILVIA Stop: 05/01/17 03:44 Last Admin: 05/01/17 06:19 Dose: 50 mls/hr eMAR Start Stop Document 05/01/17 06:19 JZI (Rec: 05/01/17 06:20 [email or web address]) Intravenous Solution Start Date 05/01/17 Start Time 06:20 Labetalol HCl (Trandate) 20 mg IV ONCE ONE Stop: 05/01/17 06:05 Last Admin: 05/01/17 06:20 Dose: 20 mg eMAR Start Stop Document 05/01/17 06:20 JZI (Rec: 05/01/17 06:21 [email or web address]) Intravenous Solution Start Date 05/01/17 Start Time 06:21 End Date 05/01/17 End time 06:25 Total Infusion Time 4 MAR Pulse and Blood Pressure Document 05/01/17 06:20 JZI (Rec: 05/01/17 06:21 JZI [email or web address]) Pulse Pulse Rate (60-90) 96 Blood Pressure Blood Pressure (100/60-150/90) 194/74 Metoprolol Tartrate (Lopressor) 25 mg PO BID STA Stop: 04/30/17 15:16 Last Admin: 04/30/17 16:11 Dose: 25 mg Potassium Chloride (K-Dur 20 Meq Er Tab) 40 meq PO STAT STA Stop: 04/30/17 13:39 Last Admin: 04/30/17 14:48 Dose: 40 meq - Scribe Statement The provider has reviewed the documentation as recorded by the Rena Lopez Provider Scribe Attestation: All medical record entries made by the Cadyiborly were at my direction and personally dictated by me. I have reviewed the chart and agree that the record accurately reflects my personal performance of the history, physical exam, medical decision making, and the department course for this patient. I have also personally directed, reviewed, and agree with the discharge instructions and disposition. Disposition/Present on Arrival - Present on Arrival Any Indicators Present on Arrival: No History of DVT/PE: No History of Uncontrolled Diabetes: No Urinary Catheter: No History Surgical Site Infection Following: None - Disposition Have Diagnosis and Disposition been Completed?: Yes Diagnosis: Hyponatremia, Hypokalemia, NSTEMI (non-ST elevated myocardial infarction) Disposition: HOSPITALIZED Disposition Time: 05:00 Condition: CRITICAL Critical Care Time - Critical Care Note Total Time (in mins): 45 Documented critical care: time excludes all time spent performing seperately billable procedures.
[2017-04-30 13:10] LABS: BASO # 0.01 K/mm3 (0.0-2.0); BASO % 0.1 % (0.0-3.0); GRAN # 9.92 (1.4-6.5); GRAN % 86.6 % (50.0-68.0); HEMATOCRIT 37.5 % (42.0-52.0); LYMPH # 0.5 (1.2-3.4); LYMPH % 3.9 % (22.0-35.0); MEAN CELL VOLUME 89.9 fl (80.0-105.0); MEAN CORPUSCULAR HEMOGLOBIN 34.8 pg (25.0-35.0); MEAN CORPUSCULAR HGB CONC 38.7 g/dl (31.0-37.0); MEAN PLATELET VOLUME 9.8 fl (7.0-11.0); MONO # 1.1 (0.1-0.6); MONO % 9.4 % (1.0-6.0); PLATELET COUNT 294 10^3/uL (120.0-450.0); WHITE BLOOD COUNT 11.5 10^3/ul (4.5-11.0)
[2017-04-30 13:21] LABS: ALB/GLOB RATIO 1.4 (1.1-1.8); ALKALINE PHOSPHATASE 77 U/L (38-126); ALT/SGPT 32 U/L (7-56); AST/SGOT 47 U/L (17-59); BILIRUBIN,TOTAL 1.2 mg/dL (0.2-1.3); BLOOD UREA NITROGEN 15 mg/dL (7-21); CALCIUM 8.9 mg/dL (8.4-10.5); CARBON DIOXIDE 37 mmol/L (21-33); GFR AFRICAN-AMERICAN > 60; GLUCOSE,RANDOM 119 mg/dL (70-110); MAGNESIUM 1.5 mg/dL (1.7-2.2); TOTAL PROTEIN 7.3 g/dL (5.8-8.3)
[2017-04-30 13:26] LABS: INR 1.04 (0.93-1.08); PARTIAL THROMBOPLASTIN TIME 26.8 Seconds (23.7-30.8)
[2017-04-30 13:35] LABS: CHLORIDE 69 mmol/L (98-107); SODIUM 117 mmol/L (132-148); TROPONIN I 0.17 ng/mL
[2017-04-30 13:37] LABS: POTASSIUM 1.9 mmol/L (3.6-5.0)
[2017-04-30] MEDS ORDERED: Potassium Chloride 20 mEq ER Tab PO STA (13:38)
[2017-04-30 13:40] LABS: BAND 1 % (0-2); NEUTROPHIL 86 % (50.0-70.0); PLATELET ESTIMATE NORMAL (NORMAL)
--- NOTE | 2017-04-30 13:42 | RAD ---
HISTORY: weakness COMPARISON: 01/02/2017 FINDINGS: LUNGS: No active pulmonary disease. PLEURA: No significant pleural effusion identified, no pneumothorax apparent. CARDIOVASCULAR: Normal. OSSEOUS STRUCTURES: No significant abnormalities. VISUALIZED UPPER ABDOMEN: Normal. OTHER FINDINGS: None. IMPRESSION: No active disease.
[2017-04-30] MEDS ORDERED: Magnesium Sulfate 1 gm in D5W 1 GM/100 ML BAG IVPB ONE (13:44)
[2017-04-30] MEDS ORDERED: Sodium Chloride 0.9% 1,000 ML IV SCH ×2 (13:45→20:00)
--- NOTE | 2017-04-30 14:31 | CT ---
PROCEDURE: CT HEAD WITHOUT CONTRAST. HISTORY: dizziness COMPARISON: None available. TECHNIQUE: Axial computed tomography images were obtained through the head/brain without intravenous contrast. Radiation dose: Total exam DLP = 759.00 mGy-cm. This CT exam was performed using one or more of the following dose reduction techniques: Automated exposure control, adjustment of the mA and/or kV according to patient size, and/or use of iterative reconstruction technique. FINDINGS: HEMORRHAGE: No intracranial hemorrhage. BRAIN: No mass effect or edema. Mild diffuse age-appropriate cerebral atrophy. There is mild to moderate periventricular white matter lucency consistent with age related chronic microvascular ischemic change. There is no evidence of acute infarct. VENTRICLES: Unremarkable. No hydrocephalus. CALVARIUM: Unremarkable. PARANASAL SINUSES: Trace dependent fluid in the sphenoid sinus. Nonspecific. Please correlate to rule out acute sinusitis. MASTOID AIR CELLS: Unremarkable as visualized. No inflammatory changes. OTHER FINDINGS: None. IMPRESSION: Age-appropriate involutional change. No intracranial mass, hemorrhage or evidence of acute infarct. Minimal dependent fluid in the sphenoid sinus. Please correlate to rule out acute sinusitis.
[2017-04-30 16:27] LABS: URINE BILIRUBIN NEGATIVE (NEGATIVE); URINE BLOOD MODERATE (NEGATIVE); URINE GLUCOSE (UA) NEGATIVE (NEGATIVE); URINE KETONE NEGATIVE (NEGATIVE); URINE LEUKOCYTE ESTERASE NEGATIVE Leu/uL (NEGATIVE); URINE PROTEIN 100 mg/dL (<30 mg/dL)
[2017-04-30 16:30] LABS: URINE APPEARANCE CLEAR (CLEAR); URINE COLOR YELLOW (YELLOW)
[2017-04-30 16:37] LABS: URINE BACTERIA FEW (NEG); URINE WBC 0 - 2 /hpf (0-6)
--- NOTE | 2017-04-30 17:31 | CARD ---
APPROVED REPORT EKG Measurement Heart [id number] <Conclusion> Sinus rhythm with premature supraventricular complexes Nonspecific ST and T wave abnormality Prolonged QT Abnormal ECG
--- NOTE | 2017-04-30 17:32 | CARD ---
APPROVED REPORT EKG Measurement Heart [id number] <Conclusion> Atrial fibrillation with premature ventricular or aberrantly conducted complexes Nonspecific ST abnormality, probably digitalis effect Prolonged QT Abnormal ECG
--- NOTE | 2017-04-30 17:34 | CARD ---
APPROVED REPORT EKG Measurement Heart [id number] <Conclusion> Undetermined rhythm Nonspecific ST abnormality Prolonged QT Abnormal ECG
[2017-04-30 19:28] LABS: BLOOD UREA NITROGEN 13 mg/dL (7-21); CALCIUM 8.5 mg/dL (8.4-10.5); CARBON DIOXIDE 36 mmol/L (21-33); CHLORIDE 72 mmol/L (98-107); GFR AFRICAN-AMERICAN > 60; GLUCOSE,RANDOM 102 mg/dL (70-110); MAGNESIUM 1.7 mg/dL (1.7-2.2)
[2017-04-30 19:42] LABS: SODIUM 116 mmol/L (132-148)
[2017-04-30 19:45] LABS: POTASSIUM 2.3 mmol/L (3.6-5.0)
[2017-04-30] MEDS: Albuterol-Ipratrop 3 mg / 0.5 (3 ml) UD IH SCH ×2 (21:00→21:29)
[2017-04-30 23:47] LABS: BLOOD UREA NITROGEN 13 mg/dL (7-21); CALCIUM 8.5 mg/dL (8.4-10.5); CARBON DIOXIDE 39 mmol/L (21-33); CHLORIDE 73 mmol/L (98-107); GFR AFRICAN-AMERICAN > 60; GLUCOSE,RANDOM 88 mg/dL (70-110)
[2017-04-30 23:53] LABS: SODIUM 118 mmol/L (132-148)
[2017-04-30 23:54] LABS: POTASSIUM 2.2 mmol/L (3.6-5.0)
--- NOTE | 2017-05-01 01:00 | CON ---
DATE: 04/30/2017 HISTORY OF PRESENT ILLNESS: The patient is seen and examined at bedside. This is a 77-year-old gentleman without significant past medical history except for chronic obstructive pulmonary disease who presented with history of multiple falls, which started about 2 months ago and the falls became more frequent. The patient denies any loss of consciousness or any specific trauma related to the falls. He also does not have idea of whether there was some igniting events that precipitated beginning of his symptoms. He denies any palpitations, fever, chills, or sweats. He did, however, was losing about 40 pounds over the last 2 months. Today, he felt weak and fell again and was brought into the ER for further management and evaluation. Even though he had a CAT scan of the head in the emergency room, which did not reveal any acute intracranial pathology. No intracranial hemorrhage or mass. The patient denies nausea, vomiting, diarrhea, or constipation. He denies any neurological deficit. He denies any shortness of breath. In the emergency room, the patient was found to have severe hyponatremia and hypokalemia. CAT scan of the head was performed. He was also found to have mild troponin leak with level of 0.17. PAST MEDICAL HISTORY: Chronic obstructive pulmonary disease. SOCIAL HISTORY: The patient used to drink alcohol; however, reports that his last beer drink was about 2 months ago and he did not drink since then. The patient denies any illicit drug abuse. He is still smoking about a half-a-pack a day. MEDICATIONS: The patient was taken only Percocet on an as needed basis. He reports recently been started on some pill, name of which he however did not remember. He was not able to tolerate it without elaboration on what that would imply. He however reports that he was urinating a lot recently. Even though the patient is not the best historian, he is alert and oriented x3 to time, place and person. The patient denies any inhalers even though reports being prescribed to him in the past. ALLERGIES: NKDA. FAMILY HISTORY: Noncontributory. REVIEW OF SYSTEMS: Review of 12-point systems other than mentioned in history of present illness is negative. PHYSICAL EXAMINATION VITAL SIGNS: Temperature is 98.2, heart rate is 84, blood pressure is 177/89, respiratory rate is 19, and oxygen saturation is 95% on room air. HEENT: Head and neck, atraumatic. LUNGS: Clear to auscultation bilaterally. HEART: Regular rate and rhythm. S1 and S2 normal. ABDOMEN: Soft, nontender, and nondistended. MUSCULOSKELETAL: No C/C/E, some muscle wasting present. SKIN: Dry. PSYCHIATRY: The patient is alert and oriented x3. LABORATORY DATA: Sodium of 117, potassium of 1.9, chloride of 69, carbon dioxide of 57,BUN 15, and creatinine of 1.0. Glucose of 119 and magnesium of 1.5. Troponin of 0.17. AST of 47 and ALT of 32. INR of 1.04, PTT of 26.8, and albumin of 4.3. WBC of 11.5, hemoglobin of 14.5, and platelet count of 294. IMAGING DATA: Chest x-ray revealed no active pulmonary disease. Head CT revealed age-appropriate involutional changes. No intracranial mass, hemorrhage or evidence of acute infarct. Minimal dependent fluid in the stimulate sinus. DIAGNOSTIC DATA: Of note, CAT scan of the chest was done in December 2016, which revealed no aortic aneurysm or pulmonary embolus. No consolidate pneumonia. There is a nodular apical scarring on the knee or right apex. There is no focal consolidation. There is diffuse dependent atelectasis greatest in the lung base. There are no effusion. ASSESSMENT AND PLAN: This is a 77-year-old gentleman who presented with severe electrolyte abnormalities including severe hyponatremia and hypokalemia, complicated by frequent falls without loss of consciousness or syncopal episode. At present time, we will proceed with aggressive correction of the potassium, which per se supposed to increase his sodium level. We will avoid increment of sodium of more than 6 mEq/liter/day for first 24 hours, after that once his sodium is about 120, we will start the patient on isotonic saline depending on what urine and plasma osmolality as well as urine electrolytes would show. We will order TSH, T4, echocardiogram to rule out hypothyroidism and congestive heart failure as an etiology for hyponatremia. The patient does not have any synthetic dysfunction of the liver. His liver function tests, bilirubin, coagulation and albumin, all within normal limits. It is possible that electrolytes abnormality relating to medication that the patient mentioned; however, the patient does not remember the name of the medication and we will try to clarify that as well. We will get cardiology consult, beta-blockers, aspirin on board. We will continue with deep venous thrombosis and gastrointestinal prophylaxis. Whether or not to start TAC for potential primary coronary event will be deferred to cardiology service as supply demand mismatch ischemia is more likely etiology of troponin leak. Meanwhile, we will trend troponin level and if troponin continue to rise, we will lean towards recommending therapeutic anticoagulation as well. The patient does have mild leukocytosis; however, afebrile. I think at present time, empiric antibiotic therapy would impose most benefit and we will hold on that while send in blood for blood culture and urine for urine culture. I will start the patient on DuoNeb every 6 hours in light of his chronic obstructive pulmonary disease. The patient is not in pain. Urine osmolality and electrolytes were ordered. Plasma osmolality was ordered as well. We will continue with BMP every 6 hours as it was mentioned before. We will avoid increase in sodium of more than 6 mEq/liter/day for first 24 hours. Nephrology consult will be requested. ccm time 40 min Giovanni Huang MD [facility]
[2017-05-01] MEDS ORDERED: Labetalol 5 mg/ml Inj 20ML IV ONE (06:04)
[2017-05-01 07:03] LABS: MAGNESIUM 1.7 mg/dL (1.7-2.2); PHOSPHOROUS 2.6 mg/dL (2.5-4.5)
[2017-05-01] MEDS ORDERED: DOPamine 400mg/250ml D5W 400 MG/250 ML BAG IV PRN (07:20)
[2017-05-01 08:57] LABS: BASO # 0.01 K/mm3 (0.0-2.0); BASO % 0.1 % (0.0-3.0); GRAN # 9.98 (1.4-6.5); GRAN % 89.4 % (50.0-68.0); LYMPH # 0.3 (1.2-3.4); LYMPH % 2.5 % (22.0-35.0); MEAN CELL VOLUME 91.1 fl (80.0-105.0); MEAN CORPUSCULAR HEMOGLOBIN 34.2 pg (25.0-35.0); MEAN CORPUSCULAR HGB CONC 37.6 g/dl (31.0-37.0); MONO # 0.9 (0.1-0.6); RED CELL DISTRIBUTION WIDTH 12.2 % (11.5-14.5); WHITE BLOOD COUNT 11.2 10^3/ul (4.5-11.0)
[2017-05-01 09:08] LABS: ALB/GLOB RATIO 1.4 (1.1-1.8); ALKALINE PHOSPHATASE 74 U/L (38-126); ALT/SGPT 36 U/L (7-56); AST/SGOT 51 U/L (17-59); BILIRUBIN,TOTAL 1.5 mg/dL (0.2-1.3); BLOOD UREA NITROGEN 13 mg/dL (7-21); CALCIUM 8.9 mg/dL (8.4-10.5); CARBON DIOXIDE 36 mmol/L (21-33); CHLORIDE 78 mmol/L (98-107); CHOLESTEROL 168 mg/dL (130-200); GFR AFRICAN-AMERICAN > 60; GLUCOSE,RANDOM 103 mg/dL (70-110); POTASSIUM 3.1 mmol/L (3.6-5.0); SODIUM 122 mmol/L (132-148); TOTAL PROTEIN 7.1 g/dL (5.8-8.3)
[2017-05-01 09:20] LABS: TROPONIN I 0.23 ng/mL
[2017-05-01] MEDS: Potassium Chloride 40 mEq/30 ml LIQ UD PO SCH ×2 (10:07→13:56)
[2017-05-01] MEDS: Sodium Chloride 0.9% 1,000 ML IV SCH (10:08)
[2017-05-01 12:30] LABS: BLOOD UREA NITROGEN 13 mg/dL (7-21); CALCIUM 8.6 mg/dL (8.4-10.5); CARBON DIOXIDE 34 mmol/L (21-33); CHLORIDE 80 mmol/L (98-107); GFR AFRICAN-AMERICAN > 60; GLUCOSE,RANDOM 104 mg/dL (70-110); SODIUM 122 mmol/L (132-148)
[2017-05-01 12:35] LABS: POTASSIUM 2.8 mmol/L (3.6-5.0)
--- NOTE | 2017-05-01 13:28 | CT ---
PROCEDURE: CT Chest without contrast HISTORY: assess for malingnancy, unintentional 40lbs loss COMPARISON: None. TECHNIQUE: Contiguous axial images were obtained through the chest without intravenous contrast enhancement. Sagittal and coronal reconstructions were performed. Radiation dose (DLP): 1036 mGy-cm. This CT exam was performed using one or more of the following dose reduction techniques: Automated exposure control, adjustment of the mA and/or kV according to patient size, and/or use of iterative reconstruction technique. FINDINGS: LUNGS: There is some consolidation at the left lung base adjacent to a moderate size pleural effusion MEDIASTINUM: Unremarkable thoracic aorta. No aneurysm. Normal sized heart. Main pulmonary artery unremarkable. No vascular congestion. No lymphadenopathy. PLEURA: Moderate size left pleural effusion BONES: Multiple displaced rib fractures are seen on the left side. There is a vertebral fracture which parallels the inferior endplate of T8. The fracture extends through the anterior cortex. This can be seen best on sagittal image 93 series 602. 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 There are no discrete lytic lesions. UPPER ABDOMEN: Grossly unremarkable. OTHER FINDINGS: None. IMPRESSION: No evidence of lung mass. Vertebral fracture of T8. Multiple left-sided rib fractures with a moderate size left pleural effusion.
[2017-05-01] MEDS ORDERED: Potassium Chloride 40 mEq/30 ml LIQ UD PO ONE (14:09)
--- NOTE | 2017-05-01 15:10 | CP.CCUPN ---
<Antonio Domingo - Last Filed: 05/01/17 14:57> CCU Subjective - Physician Review Subjective (Free Text): 05/01/17 14:57 Patient seen and examined at bedside in the ICU. Overnight, had an elevated BP with SBP> 190, resolved with 1x IV labetalol, no further events overnight reported. Today, patient has no acute complaints, no chest pain, shortness of breath, nausea/emesis, no diarrhea, no dysuria/hematuria. Reports eating daily , increased PO fluid intake in the last 2-3 months, and increased urinary frequency. CCU Objective - Vital Signs / Intake & Output Vital Signs (Last 4 hours): Vital Signs Pulse BP 05/01/17 13:55 161/84 H 05/01/17 13:53 72 161/84 H Intake and Output (Last 8hrs): Intake & Output 04/30/17 05/01/17 05/01/17 22:59 06:59 14:59 Intake Total 700 2100 Output Total 375 900 Balance 325 1200 Weight 80.694 kg Intake: IV 700 1300 Left Forearm 0 Right Antecubital 700 1300 Oral 800 Output: Urine 375 900 Urine, Voided 375 900 Other: Voiding Method Indwelling Catheter # Voids Urine, Voided 3 # Bowel Movements 0 0 - Physical Exam Head: Positive for: Atraumatic, Normocephalic Pupils: Positive for: PERRL. Negative for: Non-Reactive, Pinpoint Extroacular Muscles: Positive for: EOMI. Negative for: Gaze Palsy Conjunctiva: Positive for: Normal. Negative for: Injected, Icteric Mouth: Positive for: Moist Mucous Membranes, Normal Lips, Normal Tounge Nose (External): Positive for: Atraumatic. Negative for: Abrasion, Contusion, Laceration Neck: Positive for: Normal Range of Motion. Negative for: MIDLINE TENDERNESS, JVD, Lymphadenopathy, Trachea Midline Respiratory/Chest: Positive for: Clear to Auscultation, Good Air Exchange. Negative for: Respiratory Distress, Accessory Muscle Use, Wheezes, Decreased Breath Sounds, Rales, Rhonchi, Tachypneic, Tender to Palpation Cardiovascular: Positive for: Regular Rate and Rhythm, Normal S1, S2. Negative for: Murmurs, Irregular Rhythm, Tachycardic, Bradycardic Abdomen: Positive for: Normal Bowel Sounds. Negative for: Tenderness, Distention, Peritoneal Signs, Rebound, Guarding Upper Extremity: Positive for: Normal Inspection, Normal ROM, NORMAL PULSES, Capillary Refill < 2s. Negative for: Cyanosis, Edema, Swelling, Erythema, Deformity Lower Extremity: Positive for: Normal Inspection, NORMAL PULSES, Normal ROM. 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 Negative for: Rashes Psychiatric: Positive for: Alert, Oriented x 3, Normal Insight, Normal Concentration, Normal Affect, Normal Mood. Negative for: Anxious, Agitated - Medications Active Medications: Active Medications Generic Name Dose Route Start Last Admin Trade Name Freq PRN Reason Stop Dose Admin Amlodipine Besylate 10 mg 05/01/17 12:45 05/01/17 13:55 Norvasc PO 10 mg DAILY SILVIA Administration Aspirin 81 mg 05/01/17 11:45 05/01/17 13:55 Aspirin Chewable PO 81 mg DAILY SILVIA Administration Atorvastatin Calcium 40 mg 05/01/17 17:00 Lipitor PO DIN [facility] Clopidogrel Bisulfate 75 mg 05/01/17 11:45 05/01/17 13:55 Plavix PO 75 mg DAILY SILVIA Administration Heparin Sodium (Porcine) 5,000 units 04/30/17 15:30 05/01/17 08:23 Heparin SC 5,000 units Q8H SILVIA Administration Protocol Hydralazine HCl 10 mg 05/01/17 02:36 05/01/17 02:56 Apresoline IVP 10 mg Q6 PRN Administration SBP> 160 Sodium Chloride 1,000 mls @ 75 mls/hr 05/01/17 10:03 05/01/17 10:08 Sodium Chloride 0.9% IV 75 mls/hr .[id number] SILVIA Administration Potassium Chloride 20 meq in 100 mls @ 50 mls/hr 05/01/17 14:15 Potassium Chloride 20 Meq/100 Ml IVPB 05/01/17 18:14 Q2H [facility] Metoprolol Tartrate 25 mg 05/01/17 11:45 05/01/17 13:53 Lopressor PO 25 mg BID SILVIA Administration - Patient Studies Lab Studies: Lab Studies 05/01/17 05/01/17 05/01/17 Range/Units 12:10 09:03 09:03 WBC (4.5-11.0) 10^3/ul RBC (3.5-6.1) 10^6/uL Hgb (14.0-18.0) g/dL Hct (42.0-52.0) % MCV (80.0-105.0) fl MCH (25.0-35.0) pg MCHC (31.0-37.0) g/dl RDW (11.5-14.5) % Plt Count (120.0-450.0) 10^3/uL MPV (7.0-11.0) fl Gran % (50.0-68.0) % Lymph % (Auto) (22.0-35.0) % [place] % (Auto) (1.0-6.0) % Eos % (Auto) (1.5-5.0) % Baso % (Auto) (0.0-3.0) % Gran # (1.4-6.5) Lymph # (1.2-3.4) [place] # (0.1-0.6) Eos # (0.0-0.7) Baso # (0.0-2.0) K/mm3 Sodium 122 L (132-148) mmol/L Potassium 2.8 L* (3.6-5.0) mmol/L Chloride 80 L (98-107) mmol/L Carbon Dioxide 34 H (21-33) mmol/L Anion Gap 11 (10-20) BUN 13 (7-21) mg/dL Creatinine 0.8 (0.8-1.5) mg/dL Est GFR ( Amer) > 60 Est GFR (Non-Af Amer) > 60 Random Glucose 104 (70-110) mg/dL Hemoglobin A1c (4.2-6.5) % Serum Osmolality (272-300) mosm/kg Calcium 8.6 (8.4-10.5) mg/dL Phosphorus (2.5-4.5) mg/dL Magnesium (1.7-2.2) mg/dL Total Bilirubin (0.2-1.3) mg/dL AST (17-59) U/L ALT (7-56) U/L Alkaline Phosphatase (38-126) U/L Lactate Dehydrogenase (333-699) U/L Total Creatine Kinase (35-230) U/L CK-MB (CK-2) (0.0-3.6) ng/mL CK-MB (CK-2) % Troponin I ng/mL Total Protein (5.8-8.3) g/dL Albumin (3.0-4.8) g/dL Globulin gm/dL Albumin/Globulin Ratio (1.1-1.8) Triglycerides (35-160) mg/dL Cholesterol (130-200) mg/dL LDL Cholesterol Direct (0-129) mg/dL HDL Cholesterol (29-60) mg/dL TSH 3rd Generation (0.46-4.68) mIU/mL Urine Color (YELLOW) Urine Appearance (CLEAR) Urine pH (4.7-8.0) Ur Specific [place] (1.005-1.035) Urine Protein (<30 mg/dL) mg/dL Urine Glucose (UA) (NEGATIVE) mg/dL Urine Ketones (NEGATIVE) mg/dL Urine Blood (NEGATIVE) Urine Nitrate (NEGATIVE) Urine Bilirubin (NEGATIVE) Urine Urobilinogen (<1 E.U./dL) E.U./dL Ur Leukocyte Esterase (NEGATIVE) Rhonda/uL Urine RBC (0-2) /hpf Urine WBC (0-6) /hpf Ur Epithelial Cells (0-5) /hpf Urine Bacteria (NEG) Urine Osmolality 253 L (300-1000) mosm/kg Ur Random Sodium 29 meq/L 05/01/17 05/01/17 05/01/17 Range/Units 08:40 08:40 08:40 WBC 11.2 H (4.5-11.0) 10^3/ul RBC 4.06 (3.5-6.1) 10^6/uL Hgb 13.9 L (14.0-18.0) g/dL Hct 37.0 L (42.0-52.0) % MCV 91.1 (80.0-105.0) fl MCH 34.2 (25.0-35.0) pg MCHC 37.6 H (31.0-37.0) g/dl RDW 12.2 (11.5-14.5) % Plt Count 264 (120.0-450.0) 10^3/uL MPV 10.0 (7.0-11.0) fl Gran % 89.4 H (50.0-68.0) % Lymph % (Auto) 2.5 L (22.0-35.0) % [place] % (Auto) 8.0 H (1.0-6.0) % Eos % (Auto) 0.0 L (1.5-5.0) % Baso % (Auto) 0.1 (0.0-3.0) % Gran # 9.98 H (1.4-6.5) Lymph # 0.3 L (1.2-3.4) [place] # 0.9 H (0.1-0.6) Eos # 0.0 (0.0-0.7) Baso # 0.01 (0.0-2.0) K/mm3 Sodium (132-148) mmol/L Potassium (3.6-5.0) mmol/L Chloride (98-107) mmol/L Carbon Dioxide (21-33) mmol/L Anion Gap (10-20) BUN (7-21) mg/dL Creatinine (0.8-1.5) mg/dL Est GFR ( Amer) Est GFR (Non-Af Amer) Random Glucose (70-110) mg/dL Hemoglobin A1c 5.6 (4.2-6.5) % Serum Osmolality (272-300) mosm/kg Calcium (8.4-10.5) mg/dL Phosphorus (2.5-4.5) mg/dL Magnesium (1.7-2.2) mg/dL Total Bilirubin (0.2-1.3) mg/dL AST (17-59) U/L ALT (7-56) U/L Alkaline Phosphatase (38-126) U/L Lactate Dehydrogenase (333-699) U/L Total Creatine Kinase (35-230) U/L CK-MB (CK-2) (0.0-3.6) ng/mL CK-MB (CK-2) % Troponin I ng/mL Total Protein (5.8-8.3) g/dL Albumin (3.0-4.8) g/dL Globulin gm/dL Albumin/Globulin Ratio (1.1-1.8) Triglycerides (35-160) mg/dL Cholesterol (130-200) mg/dL LDL Cholesterol Direct (0-129) mg/dL HDL Cholesterol (29-60) mg/dL TSH 3rd Generation 2.48 (0.46-4.68) mIU/mL Urine Color (YELLOW) Urine Appearance (CLEAR) Urine pH (4.7-8.0) Ur Specific [place] (1.005-1.035) Urine Protein (<30 mg/dL) mg/dL Urine Glucose (UA) (NEGATIVE) mg/dL Urine Ketones (NEGATIVE) mg/dL Urine Blood (NEGATIVE) Urine Nitrate (NEGATIVE) Urine Bilirubin (NEGATIVE) Urine Urobilinogen (<1 E.U./dL) E.U./dL Ur Leukocyte Esterase (NEGATIVE) Rhonda/uL Urine RBC (0-2) /hpf Urine WBC (0-6) /hpf Ur Epithelial Cells (0-5) /hpf Urine Bacteria (NEG) Urine Osmolality (300-1000) mosm/kg Ur Random Sodium meq/L 05/01/17 05/01/17 04/30/17 Range/Units 08:40 05:30 23:30 WBC (4.5-11.0) 10^3/ul RBC (3.5-6.1) 10^6/uL Hgb (14.0-18.0) g/dL Hct (42.0-52.0) % MCV (80.0-105.0) fl MCH (25.0-35.0) pg MCHC (31.0-37.0) g/dl RDW (11.5-14.5) % Plt Count (120.0-450.0) 10^3/uL MPV (7.0-11.0) fl Gran % (50.0-68.0) % Lymph % (Auto) (22.0-35.0) % [place] % (Auto) (1.0-6.0) % Eos % (Auto) (1.5-5.0) % Baso % (Auto) (0.0-3.0) % Gran # (1.4-6.5) Lymph # (1.2-3.4) [place] # (0.1-0.6) Eos # (0.0-0.7) Baso # (0.0-2.0) K/mm3 Sodium 122 L 118 L* (132-148) mmol/L Potassium 3.1 L 2.2 L* (3.6-5.0) mmol/L Chloride 78 L 73 L (98-107) mmol/L Carbon Dioxide 36 H 39 H (21-33) mmol/L Anion Gap 11 8 L (10-20) BUN 13 13 (7-21) mg/dL Creatinine 0.9 0.9 (0.8-1.5) mg/dL Est GFR ( Amer) > 60 > 60 Est GFR (Non-Af Amer) > 60 > 60 Random Glucose 103 88 (70-110) mg/dL Hemoglobin A1c (4.2-6.5) % Serum Osmolality (272-300) mosm/kg Calcium 8.9 8.5 (8.4-10.5) mg/dL Phosphorus 2.6 (2.5-4.5) mg/dL Magnesium 1.7 (1.7-2.2) mg/dL Total Bilirubin 1.5 H (0.2-1.3) mg/dL AST 51 (17-59) U/L ALT 36 (7-56) U/L Alkaline Phosphatase 74 (38-126) U/L Lactate Dehydrogenase 675 (333-699) U/L Total Creatine Kinase 315 H (35-230) U/L CK-MB (CK-2) 3.6 (0.0-3.6) ng/mL CK-MB (CK-2) % Cancelled Troponin I 0.23 H* D ng/mL Total Protein 7.1 (5.8-8.3) g/dL Albumin 4.1 (3.0-4.8) g/dL Globulin 3.0 gm/dL Albumin/Globulin Ratio 1.4 (1.1-1.8) Triglycerides 58 (35-160) mg/dL Cholesterol 168 (130-200) mg/dL LDL Cholesterol Direct 89 (0-129) mg/dL HDL Cholesterol 60 (29-60) mg/dL TSH 3rd Generation (0.46-4.68) mIU/mL Urine Color (YELLOW) Urine Appearance (CLEAR) Urine pH (4.7-8.0) Ur Specific [place] (1.005-1.035) Urine Protein (<30 mg/dL) mg/dL Urine Glucose (UA) (NEGATIVE) mg/dL Urine Ketones (NEGATIVE) mg/dL Urine Blood (NEGATIVE) Urine Nitrate (NEGATIVE) Urine Bilirubin (NEGATIVE) Urine Urobilinogen (<1 E.U./dL) E.U./dL Ur Leukocyte Esterase (NEGATIVE) Rhonda/uL Urine RBC (0-2) /hpf Urine WBC (0-6) /hpf Ur Epithelial Cells (0-5) /hpf Urine Bacteria (NEG) Urine Osmolality (300-1000) mosm/kg Ur Random Sodium meq/L 04/30/17 04/30/17 04/30/17 Range/Units 19:10 19:10 19:10 WBC (4.5-11.0) 10^3/ul RBC (3.5-6.1) 10^6/uL Hgb (14.0-18.0) g/dL Hct (42.0-52.0) % MCV (80.0-105.0) fl MCH (25.0-35.0) pg MCHC (31.0-37.0) g/dl RDW (11.5-14.5) % Plt Count (120.0-450.0) 10^3/uL MPV (7.0-11.0) fl Gran % (50.0-68.0) % Lymph % (Auto) (22.0-35.0) % [place] % (Auto) (1.0-6.0) % Eos % (Auto) (1.5-5.0) % Baso % (Auto) (0.0-3.0) % Gran # (1.4-6.5) Lymph # (1.2-3.4) [place] # (0.1-0.6) Eos # (0.0-0.7) Baso # (0.0-2.0) K/mm3 Sodium 116 L* (132-148) mmol/L Potassium 2.3 L* D (3.6-5.0) mmol/L Chloride 72 L (98-107) mmol/L Carbon Dioxide 36 H (21-33) mmol/L Anion Gap 10 (10-20) BUN 13 (7-21) mg/dL Creatinine 0.8 (0.8-1.5) mg/dL Est GFR ( Amer) > 60 Est GFR (Non-Af Amer) > 60 Random Glucose 102 (70-110) mg/dL Hemoglobin A1c (4.2-6.5) % Serum Osmolality 248 L (272-300) mosm/kg Calcium 8.5 (8.4-10.5) mg/dL Phosphorus (2.5-4.5) mg/dL Magnesium 1.7 (1.7-2.2) mg/dL Total Bilirubin (0.2-1.3) mg/dL AST (17-59) U/L ALT (7-56) U/L Alkaline Phosphatase (38-126) U/L Lactate Dehydrogenase (333-699) U/L Total Creatine Kinase (35-230) U/L CK-MB (CK-2) (0.0-3.6) ng/mL CK-MB (CK-2) % Troponin I ng/mL Total Protein (5.8-8.3) g/dL Albumin (3.0-4.8) g/dL Globulin gm/dL Albumin/Globulin Ratio (1.1-1.8) Triglycerides (35-160) mg/dL Cholesterol (130-200) mg/dL LDL Cholesterol Direct (0-129) mg/dL HDL Cholesterol (29-60) mg/dL TSH 3rd Generation 2.32 (0.46-4.68) mIU/mL Urine Color (YELLOW) Urine Appearance (CLEAR) Urine pH (4.7-8.0) Ur Specific [place] (1.005-1.035) Urine Protein (<30 mg/dL) mg/dL Urine Glucose (UA) (NEGATIVE) mg/dL Urine Ketones (NEGATIVE) mg/dL Urine Blood (NEGATIVE) Urine Nitrate (NEGATIVE) Urine Bilirubin (NEGATIVE) Urine Urobilinogen (<1 E.U./dL) E.U./dL Ur Leukocyte Esterase (NEGATIVE) Rhonda/uL Urine RBC (0-2) /hpf Urine WBC (0-6) /hpf Ur Epithelial Cells (0-5) /hpf Urine Bacteria (NEG) Urine Osmolality (300-1000) mosm/kg Ur Random Sodium meq/L 04/30/17 Range/Units 16:17 WBC (4.5-11.0) 10^3/ul RBC (3.5-6.1) 10^6/uL Hgb (14.0-18.0) g/dL Hct (42.0-52.0) % MCV (80.0-105.0) fl MCH (25.0-35.0) pg MCHC (31.0-37.0) g/dl RDW (11.5-14.5) % Plt Count (120.0-450.0) 10^3/uL MPV (7.0-11.0) fl Gran % (50.0-68.0) % Lymph % (Auto) (22.0-35.0) % [place] % (Auto) (1.0-6.0) % Eos % (Auto) (1.5-5.0) % Baso % (Auto) (0.0-3.0) % Gran # (1.4-6.5) Lymph # (1.2-3.4) [place] # (0.1-0.6) Eos # (0.0-0.7) Baso # (0.0-2.0) K/mm3 Sodium (132-148) mmol/L Potassium (3.6-5.0) mmol/L Chloride (98-107) mmol/L Carbon Dioxide (21-33) mmol/L Anion Gap (10-20) BUN (7-21) mg/dL Creatinine (0.8-1.5) mg/dL Est GFR ( Amer) Est GFR (Non-Af Amer) Random Glucose (70-110) mg/dL Hemoglobin A1c (4.2-6.5) % Serum Osmolality (272-300) mosm/kg Calcium (8.4-10.5) mg/dL Phosphorus (2.5-4.5) mg/dL Magnesium (1.7-2.2) mg/dL Total Bilirubin (0.2-1.3) mg/dL AST (17-59) U/L ALT (7-56) U/L Alkaline Phosphatase (38-126) U/L Lactate Dehydrogenase (333-699) U/L Total Creatine Kinase (35-230) U/L CK-MB (CK-2) (0.0-3.6) ng/mL CK-MB (CK-2) % Troponin I ng/mL Total Protein (5.8-8.3) g/dL Albumin (3.0-4.8) g/dL Globulin gm/dL Albumin/Globulin Ratio (1.1-1.8) Triglycerides (35-160) mg/dL Cholesterol (130-200) mg/dL LDL Cholesterol Direct (0-129) mg/dL HDL Cholesterol (29-60) mg/dL TSH 3rd Generation (0.46-4.68) mIU/mL Urine Color Yellow (YELLOW) Urine Appearance Clear (CLEAR) Urine pH 7.0 (4.7-8.0) Ur Specific [place] 1.015 (1.005-1.035) Urine Protein 100 H (<30 mg/dL) mg/dL Urine Glucose (UA) Negative (NEGATIVE) mg/dL Urine Ketones Negative (NEGATIVE) mg/dL Urine Blood Moderate H (NEGATIVE) Urine Nitrate Negative (NEGATIVE) Urine Bilirubin Negative (NEGATIVE) Urine Urobilinogen 1.0 H (<1 E.U./dL) E.U./dL Ur Leukocyte Esterase Negative (NEGATIVE) Rhonda/uL Urine RBC 2 - 5 (0-2) /hpf Urine WBC 0 - 2 (0-6) /hpf Ur Epithelial Cells 1 - 3 (0-5) /hpf Urine Bacteria Few (NEG) Urine Osmolality (300-1000) mosm/kg Ur Random Sodium meq/L Laboratory Results - last 24 hr 04/30/17 04/30/17 04/30/17 16:17 19:10 19:10 WBC RBC Hgb Hct MCV MCH MCHC RDW Plt Count MPV Gran % Lymph % (Auto) [place] % (Auto) Eos % (Auto) Baso % (Auto) Gran # Lymph # [place] # Eos # Baso # Sodium Potassium Chloride Carbon Dioxide Anion Gap BUN Creatinine Est GFR ( Amer) Est GFR (Non-Af Amer) Random Glucose Hemoglobin A1c Serum Osmolality 248 L Calcium Phosphorus Magnesium Total Bilirubin AST ALT Alkaline Phosphatase Lactate Dehydrogenase Total Creatine Kinase CK-MB (CK-2) CK-MB (CK-2) % Troponin I Total Protein Albumin Globulin Albumin/Globulin Ratio Triglycerides Cholesterol LDL Cholesterol Direct HDL Cholesterol TSH 3rd Generation 2.32 Urine Color Yellow Urine Appearance Clear Urine pH 7.0 Ur Specific [place] 1.015 Urine Protein 100 H Urine Glucose (UA) Negative Urine Ketones Negative Urine Blood Moderate H Urine Nitrate Negative Urine Bilirubin Negative Urine Urobilinogen 1.0 H Ur Leukocyte Esterase Negative Urine RBC 2 - 5 Urine WBC 0 - 2 Ur Epithelial Cells 1 - 3 Urine Bacteria Few Urine Osmolality Ur Random Sodium 10/12/17 10/12/17 10/13/17 19:10 23:30 05:30 WBC RBC Hgb Hct MCV MCH MCHC RDW Plt Count MPV Gran % Lymph % (Auto) [place] % (Auto) Eos % (Auto) Baso % (Auto) Gran # Lymph # [place] # Eos # Baso # Sodium 116 L* 118 L* Potassium 2.3 L* D 2.2 L* Chloride 72 L 73 L Carbon Dioxide 36 H 39 H Anion Gap 10 8 L BUN 13 13 Creatinine 0.8 0.9 Est GFR ( Amer) > 60 > 60 Est GFR (Non-Af Amer) > 60 > 60 Random Glucose 102 88 Hemoglobin A1c Serum Osmolality Calcium 8.5 8.5 Phosphorus 2.6 Magnesium 1.7 1.7 Total Bilirubin AST ALT Alkaline Phosphatase Lactate Dehydrogenase Total Creatine Kinase CK-MB (CK-2) CK-MB (CK-2) % Troponin I Total Protein Albumin Globulin Albumin/Globulin Ratio Triglycerides Cholesterol LDL Cholesterol Direct HDL Cholesterol TSH 3rd Generation Urine Color Urine Appearance Urine pH Ur Specific [place] Urine Protein Urine Glucose (UA) Urine Ketones Urine Blood Urine Nitrate Urine Bilirubin Urine Urobilinogen Ur Leukocyte Esterase Urine RBC Urine WBC Ur Epithelial Cells Urine Bacteria Urine Osmolality Ur Random Sodium 05/01/17 05/01/17 05/01/17 08:40 08:40 08:40 WBC RBC Hgb Hct MCV MCH MCHC RDW Plt Count MPV Gran % Lymph % (Auto) [place] % (Auto) Eos % (Auto) Baso % (Auto) Gran # Lymph # [place] # Eos # Baso # Sodium 122 L Potassium 3.1 L Chloride 78 L Carbon Dioxide 36 H Anion Gap 11 BUN 13 Creatinine 0.9 Est GFR ( Amer) > 60 Est GFR (Non-Af Amer) > 60 Random Glucose 103 Hemoglobin A1c 5.6 Serum Osmolality Calcium 8.9 Phosphorus Magnesium Total Bilirubin 1.5 H AST 51 ALT 36 Alkaline Phosphatase 74 Lactate Dehydrogenase 675 Total Creatine Kinase 315 H CK-MB (CK-2) 3.6 CK-MB (CK-2) % Cancelled Troponin I 0.23 H* D Total Protein 7.1 Albumin 4.1 Globulin 3.0 Albumin/Globulin Ratio 1.4 Triglycerides 58 Cholesterol 168 LDL Cholesterol Direct 89 HDL Cholesterol 60 TSH 3rd Generation 2.48 Urine Color Urine Appearance Urine pH Ur Specific [place] Urine Protein Urine Glucose (UA) Urine Ketones Urine Blood Urine Nitrate Urine Bilirubin Urine Urobilinogen Ur Leukocyte Esterase Urine RBC Urine WBC Ur Epithelial Cells Urine Bacteria Urine Osmolality Ur Random Sodium 05/01/17 05/01/17 05/01/17 08:40 09:03 09:03 WBC 11.2 H RBC 4.06 Hgb 13.9 L Hct 37.0 L MCV 91.1 MCH 34.2 MCHC 37.6 H RDW 12.2 Plt Count 264 MPV 10.0 Gran % 89.4 H Lymph % (Auto) 2.5 L [place] % (Auto) 8.0 H Eos % (Auto) 0.0 L Baso % (Auto) 0.1 Gran # 9.98 H Lymph # 0.3 L [place] # 0.9 H Eos # 0.0 Baso # 0.01 Sodium Potassium Chloride Carbon Dioxide Anion Gap BUN Creatinine Est GFR ( Amer) Est GFR (Non-Af Amer) Random Glucose Hemoglobin A1c Serum Osmolality Calcium Phosphorus Magnesium Total Bilirubin AST ALT Alkaline Phosphatase Lactate Dehydrogenase Total Creatine Kinase CK-MB (CK-2) CK-MB (CK-2) % Troponin I Total Protein Albumin Globulin Albumin/Globulin Ratio Triglycerides Cholesterol LDL Cholesterol Direct HDL Cholesterol TSH 3rd Generation Urine Color Urine Appearance Urine pH Ur Specific [place] Urine Protein Urine Glucose (UA) Urine Ketones Urine Blood Urine Nitrate Urine Bilirubin Urine Urobilinogen Ur Leukocyte Esterase Urine RBC Urine WBC Ur Epithelial Cells Urine Bacteria Urine Osmolality 253 L Ur Random Sodium 29 05/01/17 12:10 WBC RBC Hgb Hct MCV MCH MCHC RDW Plt Count MPV Gran % Lymph % (Auto) [place] % (Auto) Eos % (Auto) Baso % (Auto) Gran # Lymph # [place] # Eos # Baso # Sodium 122 L Potassium 2.8 L* Chloride 80 L Carbon Dioxide 34 H Anion Gap 11 BUN 13 Creatinine 0.8 Est GFR ( Amer) > 60 Est GFR (Non-Af Amer) > 60 Random Glucose 104 Hemoglobin A1c Serum Osmolality Calcium 8.6 Phosphorus Magnesium Total Bilirubin AST ALT Alkaline Phosphatase Lactate Dehydrogenase Total Creatine Kinase CK-MB (CK-2) CK-MB (CK-2) % Troponin I Total Protein Albumin Globulin Albumin/Globulin Ratio Triglycerides Cholesterol LDL Cholesterol Direct HDL Cholesterol TSH 3rd Generation Urine Color Urine Appearance Urine pH Ur Specific [place] Urine Protein Urine Glucose (UA) Urine Ketones Urine Blood Urine Nitrate Urine Bilirubin Urine Urobilinogen Ur Leukocyte Esterase Urine RBC Urine WBC Ur Epithelial Cells Urine Bacteria Urine Osmolality Ur Random Sodium Review of Systems - Review of Systems All systems: reviewed and no additional remarkable complaints except (as per HPI ) Critical Care Progress Note - Nutrition Nutrition: Nutrition Category Date Time Status Regular Diet [DIET] Diets 05/01/17 Lunch Ordered Assessment/Plan - Assessment and Plan (Free Text) Assessment: This is a 77 yo M with PMH of COPD 2/2 heavy tobacco use who presented to [facility] due to frequent falls, with the latest being preceded by a dizzy/room-spinning spell. Was found to have an NSTEMI (trop 0.17), hypokalemia of 1.9, and hyponatremia of 117, and was admitted to the ICU for close monitoring and repletion of electrolytes. Plan: Neuro: -awake and alert, mentating well, no new dizziness or room-spinning spells -continue to monitor Pulm: -Satting well on room air, 92-97% -no indication for supplemental O2 at this time, maintain SaO2 > 90% in COPD pt , avoid overoxygenation in COPD pt to prevent suppression of respiratory drive -Hyponatremia may be 2/2 SIADH from lung cancer, high cancer risk given hx of smoking and unintentional weight loss -Chest CT obtained was negative for lung mass, but notable for multiple fractured ribs (hx of multiple falls), further workup likely required, would benefit from Heme-onc consultation Cardio: -RRR on exam, hemodynamically stable -elevated BP overnight, SBP > 190, resolved with 1x Labetalol -BP currently well managed with amlodipine, Lopressor, and PRN hydralazine, continue -NSTEMI with trop 0.17 on arrival, increased to 0.23 today, pending repeat trop ; may be 2/2 severe electrolyte disturbances -Cardio consulted, appreciate all recs -Continue ASA/Lipitor/Plavix/Beta-shamika for NSTEMI pt -Echo obtained, pending read -TSH wnl on admit and on recheck GI: -Heart healthy diet -Protonix for GI ppx -Reports regular PO intake, so less likely electrolyte derangements 2/2 malnutrition, will monitor intake while inpt Renal: -Cr 0.9, BUN 13 -Na improved to 122, avoid correcting > 10 in 24 hours and 18 in 48 hours to prevent central pontine myelinolysis -K initially improved to 3.1, now back down to 2.8, continuing to aggressively replete; Mag 1.7, repleting as well -Monitor and replete all electrolytes as necessary -avoid nephrotoxic medications as feasible -Urine Osm 253, serum osm 248 -Nephro following, appreciate all recs Heme: -Hgb stable at 13.9 -Coags on admit wnl, INR 1.04 -Heparin SC q8 for DVT ppx ID: -mild leukocytosis at 11.2, 11.5 yesterday; remains afebrile -UA unremarkable for infection, Blood and Urine Cx obtained, pending -can cover empirically with rocephin pending culture results Endo: -TSH wnl on admit and on recheck Dispo: ICU for sodium and potassium repletion and NSTEMI, pending transfer to telemetry FEN: Heart-healthy, NS at 100/hr Access: Peripheral IVs Consults: Cardio, Nephro Ppx: Protonix for GI, Heparin for DVT Patient seen, reviewed, and discussed with attending, Dr. Craig <Germán Craig - Last Filed: 05/01/17 16:18> CCU Objective - Vital Signs / Intake & Output Vital Signs (Last 4 hours): Vital Signs Pulse BP 05/01/17 13:55 161/84 H 05/01/17 13:53 72 161/84 H Intake and Output (Last 8hrs): Intake & Output 05/01/17 05/01/17 05/01/17 06:59 14:59 22:59 Intake Total 2100 Output Total 900 Balance 1200 Intake: IV 1300 Left Forearm 0 Right Antecubital 1300 Oral 800 Output: Urine 900 Urine, Voided 900 Other: # Bowel Movements 0 - Medications Active Medications: Active Medications Generic Name Dose Route Start Last Admin Trade Name Freq PRN Reason Stop Dose Admin Amlodipine Besylate 10 mg 05/01/17 12:45 05/01/17 13:55 Norvasc PO 10 mg DAILY SILVIA Administration Aspirin 81 mg 05/01/17 11:45 05/01/17 13:55 Aspirin Chewable PO 81 mg DAILY SILVIA Administration Atorvastatin Calcium 40 mg 05/01/17 17:00 Lipitor PO DIN SILVIA Clopidogrel Bisulfate 75 mg 05/01/17 11:45 05/01/17 13:55 Plavix PO 75 mg DAILY SILVIA Administration Heparin Sodium (Porcine) 5,000 units 04/30/17 15:30 05/01/17 15:36 Heparin SC 5,000 units Q8H SILVIA Administration Protocol Hydralazine HCl 10 mg 05/01/17 02:36 05/01/17 02:56 Apresoline IVP 10 mg Q6 PRN Administration SBP> 160 Sodium Chloride 1,000 mls @ 75 mls/hr 05/01/17 10:03 05/01/17 10:08 Sodium Chloride 0.9% IV 75 mls/hr .[id number] SILVIA Administration Potassium Chloride 20 meq in 100 mls @ 50 mls/hr 05/01/17 14:15 05/01/17 15: 35 Potassium Chloride 20 Meq/100 Ml IVPB 05/01/17 18:14 50 mls/hr Q2H SILVIA Administration Magnesium Sulfate 2 gm/ Sodium 104 mls @ 102 mls/hr 05/01/17 15:35 Chloride IVPB 05/01/17 16:36 ONCE ONE Ceftriaxone Sodium 1 gm in 100 mls @ 100 mls/hr 05/01/17 16:00 Rocephin 1 Gram Ivpb IVPB DAILY SILVIA Protocol Metoprolol Tartrate 25 mg 05/01/17 11:45 05/01/17 13:53 Lopressor PO 25 mg BID SILVIA Administration - Patient Studies Lab Studies: Lab Studies 05/01/17 05/01/17 05/01/17 Range/Units 12:10 09:03 09:03 WBC (4.5-11.0) 10^3/ul RBC (3.5-6.1) 10^6/uL Hgb (14.0-18.0) g/dL Hct (42.0-52.0) % MCV (80.0-105.0) fl MCH (25.0-35.0) pg MCHC (31.0-37.0) g/dl RDW (11.5-14.5) % Plt Count (120.0-450.0) 10^3/uL MPV (7.0-11.0) fl Gran % (50.0-68.0) % Lymph % (Auto) (22.0-35.0) % [place] % (Auto) (1.0-6.0) % Eos % (Auto) (1.5-5.0) % Baso % (Auto) (0.0-3.0) % Gran # (1.4-6.5) Lymph # (1.2-3.4) [place] # (0.1-0.6) Eos # (0.0-0.7) Baso # (0.0-2.0) K/mm3 Sodium 122 L (132-148) mmol/L Potassium 2.8 L* (3.6-5.0) mmol/L Chloride 80 L (98-107) mmol/L Carbon Dioxide 34 H (21-33) mmol/L Anion Gap 11 (10-20) BUN 13 (7-21) mg/dL Creatinine 0.8 (0.8-1.5) mg/dL Est GFR ( Amer) > 60 Est GFR (Non-Af Amer) > 60 Random Glucose 104 (70-110) mg/dL Hemoglobin A1c (4.2-6.5) % Serum Osmolality (272-300) mosm/kg Calcium 8.6 (8.4-10.5) mg/dL Phosphorus (2.5-4.5) mg/dL Magnesium (1.7-2.2) mg/dL Total Bilirubin (0.2-1.3) mg/dL AST (17-59) U/L ALT (7-56) U/L Alkaline Phosphatase (38-126) U/L Lactate Dehydrogenase (333-699) U/L Total Creatine Kinase (35-230) U/L CK-MB (CK-2) (0.0-3.6) ng/mL CK-MB (CK-2) % Troponin I ng/mL Total Protein (5.8-8.3) g/dL Albumin (3.0-4.8) g/dL Globulin gm/dL Albumin/Globulin Ratio (1.1-1.8) Triglycerides (35-160) mg/dL Cholesterol (130-200) mg/dL LDL Cholesterol Direct (0-129) mg/dL HDL Cholesterol (29-60) mg/dL TSH 3rd Generation (0.46-4.68) mIU/mL Urine Color (YELLOW) Urine Appearance (CLEAR) Urine pH (4.7-8.0) Ur Specific [place] (1.005-1.035) Urine Protein (<30 mg/dL) mg/dL Urine Glucose (UA) (NEGATIVE) mg/dL Urine Ketones (NEGATIVE) mg/dL Urine Blood (NEGATIVE) Urine Nitrate (NEGATIVE) Urine Bilirubin (NEGATIVE) Urine Urobilinogen (<1 E.U./dL) E.U./dL Ur Leukocyte Esterase (NEGATIVE) Rhonda/uL Urine RBC (0-2) /hpf Urine WBC (0-6) /hpf Ur Epithelial Cells (0-5) /hpf Urine Bacteria (NEG) Urine Osmolality 253 L (300-1000) mosm/kg Ur Random Sodium 29 meq/L 05/01/17 05/01/17 05/01/17 Range/Units 08:40 08:40 08:40 WBC 11.2 H (4.5-11.0) 10^3/ul RBC 4.06 (3.5-6.1) 10^6/uL Hgb 13.9 L (14.0-18.0) g/dL Hct 37.0 L (42.0-52.0) % MCV 91.1 (80.0-105.0) fl MCH 34.2 (25.0-35.0) pg MCHC 37.6 H (31.0-37.0) g/dl RDW 12.2 (11.5-14.5) % Plt Count 264 (120.0-450.0) 10^3/uL MPV 10.0 (7.0-11.0) fl Gran % 89.4 H (50.0-68.0) % Lymph % (Auto) 2.5 L (22.0-35.0) % [place] % (Auto) 8.0 H (1.0-6.0) % Eos % (Auto) 0.0 L (1.5-5.0) % Baso % (Auto) 0.1 (0.0-3.0) % Gran # 9.98 H (1.4-6.5) Lymph # 0.3 L (1.2-3.4) [place] # 0.9 H (0.1-0.6) Eos # 0.0 (0.0-0.7) Baso # 0.01 (0.0-2.0) K/mm3 Sodium (132-148) mmol/L Potassium (3.6-5.0) mmol/L Chloride (98-107) mmol/L Carbon Dioxide (21-33) mmol/L Anion Gap (10-20) BUN (7-21) mg/dL Creatinine (0.8-1.5) mg/dL Est GFR ( Amer) Est GFR (Non-Af Amer) Random Glucose (70-110) mg/dL Hemoglobin A1c 5.6 (4.2-6.5) % Serum Osmolality (272-300) mosm/kg Calcium (8.4-10.5) mg/dL Phosphorus (2.5-4.5) mg/dL Magnesium (1.7-2.2) mg/dL Total Bilirubin (0.2-1.3) mg/dL AST (17-59) U/L ALT (7-56) U/L Alkaline Phosphatase (38-126) U/L Lactate Dehydrogenase (333-699) U/L Total Creatine Kinase (35-230) U/L CK-MB (CK-2) (0.0-3.6) ng/mL CK-MB (CK-2) % Troponin I ng/mL Total Protein (5.8-8.3) g/dL Albumin (3.0-4.8) g/dL Globulin gm/dL Albumin/Globulin Ratio (1.1-1.8) Triglycerides (35-160) mg/dL Cholesterol (130-200) mg/dL LDL Cholesterol Direct (0-129) mg/dL HDL Cholesterol (29-60) mg/dL TSH 3rd Generation 2.48 (0.46-4.68) mIU/mL Urine Color (YELLOW) Urine Appearance (CLEAR) Urine pH (4.7-8.0) Ur Specific [place] (1.005-1.035) Urine Protein (<30 mg/dL) mg/dL Urine Glucose (UA) (NEGATIVE) mg/dL Urine Ketones (NEGATIVE) mg/dL Urine Blood (NEGATIVE) Urine Nitrate (NEGATIVE) Urine Bilirubin (NEGATIVE) Urine Urobilinogen (<1 E.U./dL) E.U./dL Ur Leukocyte Esterase (NEGATIVE) Rhonda/uL Urine RBC (0-2) /hpf Urine WBC (0-6) /hpf Ur Epithelial Cells (0-5) /hpf Urine Bacteria (NEG) Urine Osmolality (300-1000) mosm/kg Ur Random Sodium meq/L 05/01/17 05/01/17 04/30/17 Range/Units 08:40 05:30 23:30 WBC (4.5-11.0) 10^3/ul RBC (3.5-6.1) 10^6/uL Hgb (14.0-18.0) g/dL Hct (42.0-52.0) % MCV (80.0-105.0) fl MCH (25.0-35.0) pg MCHC (31.0-37.0) g/dl RDW (11.5-14.5) % Plt Count (120.0-450.0) 10^3/uL MPV (7.0-11.0) fl Gran % (50.0-68.0) % Lymph % (Auto) (22.0-35.0) % [place] % (Auto) (1.0-6.0) % Eos % (Auto) (1.5-5.0) % Baso % (Auto) (0.0-3.0) % Gran # (1.4-6.5) Lymph # (1.2-3.4) [place] # (0.1-0.6) Eos # (0.0-0.7) Baso # (0.0-2.0) K/mm3 Sodium 122 L 118 L* (132-148) mmol/L Potassium 3.1 L 2.2 L* (3.6-5.0) mmol/L Chloride 78 L 73 L (98-107) mmol/L Carbon Dioxide 36 H 39 H (21-33) mmol/L Anion Gap 11 8 L (10-20) BUN 13 13 (7-21) mg/dL Creatinine 0.9 0.9 (0.8-1.5) mg/dL Est GFR ( Amer) > 60 > 60 Est GFR (Non-Af Amer) > 60 > 60 Random Glucose 103 88 (70-110) mg/dL Hemoglobin A1c (4.2-6.5) % Serum Osmolality (272-300) mosm/kg Calcium 8.9 8.5 (8.4-10.5) mg/dL Phosphorus 2.6 (2.5-4.5) mg/dL Magnesium 1.7 (1.7-2.2) mg/dL Total Bilirubin 1.5 H (0.2-1.3) mg/dL AST 51 (17-59) U/L ALT 36 (7-56) U/L Alkaline Phosphatase 74 (38-126) U/L Lactate Dehydrogenase 675 (333-699) U/L Total Creatine Kinase 315 H (35-230) U/L CK-MB (CK-2) 3.6 (0.0-3.6) ng/mL CK-MB (CK-2) % Cancelled Troponin I 0.23 H* D ng/mL Total Protein 7.1 (5.8-8.3) g/dL Albumin 4.1 (3.0-4.8) g/dL Globulin 3.0 gm/dL Albumin/Globulin Ratio 1.4 (1.1-1.8) Triglycerides 58 (35-160) mg/dL Cholesterol 168 (130-200) mg/dL LDL Cholesterol Direct 89 (0-129) mg/dL HDL Cholesterol 60 (29-60) mg/dL TSH 3rd Generation (0.46-4.68) mIU/mL Urine Color (YELLOW) Urine Appearance (CLEAR) Urine pH (4.7-8.0) Ur Specific [place] (1.005-1.035) Urine Protein (<30 mg/dL) mg/dL Urine Glucose (UA) (NEGATIVE) mg/dL Urine Ketones (NEGATIVE) mg/dL Urine Blood (NEGATIVE) Urine Nitrate (NEGATIVE) Urine Bilirubin (NEGATIVE) Urine Urobilinogen (<1 E.U./dL) E.U./dL Ur Leukocyte Esterase (NEGATIVE) Rhonda/uL Urine RBC (0-2) /hpf Urine WBC (0-6) /hpf Ur Epithelial Cells (0-5) /hpf Urine Bacteria (NEG) Urine Osmolality (300-1000) mosm/kg Ur Random Sodium meq/L 04/30/17 04/30/17 04/30/17 Range/Units 19:10 19:10 19:10 WBC (4.5-11.0) 10^3/ul RBC (3.5-6.1) 10^6/uL Hgb (14.0-18.0) g/dL Hct (42.0-52.0) % MCV (80.0-105.0) fl MCH (25.0-35.0) pg MCHC (31.0-37.0) g/dl RDW (11.5-14.5) % Plt Count (120.0-450.0) 10^3/uL MPV (7.0-11.0) fl Gran % (50.0-68.0) % Lymph % (Auto) (22.0-35.0) % [place] % (Auto) (1.0-6.0) % Eos % (Auto) (1.5-5.0) % Baso % (Auto) (0.0-3.0) % Gran # (1.4-6.5) Lymph # (1.2-3.4) [place] # (0.1-0.6) Eos # (0.0-0.7) Baso # (0.0-2.0) K/mm3 Sodium 116 L* (132-148) mmol/L Potassium 2.3 L* D (3.6-5.0) mmol/L Chloride 72 L (98-107) mmol/L Carbon Dioxide 36 H (21-33) mmol/L Anion Gap 10 (10-20) BUN 13 (7-21) mg/dL Creatinine 0.8 (0.8-1.5) mg/dL Est GFR ( Amer) > 60 Est GFR (Non-Af Amer) > 60 Random Glucose 102 (70-110) mg/dL Hemoglobin A1c (4.2-6.5) % Serum Osmolality 248 L (272-300) mosm/kg Calcium 8.5 (8.4-10.5) mg/dL Phosphorus (2.5-4.5) mg/dL Magnesium 1.7 (1.7-2.2) mg/dL Total Bilirubin (0.2-1.3) mg/dL AST (17-59) U/L ALT (7-56) U/L Alkaline Phosphatase (38-126) U/L Lactate Dehydrogenase (333-699) U/L Total Creatine Kinase (35-230) U/L CK-MB (CK-2) (0.0-3.6) ng/mL CK-MB (CK-2) % Troponin I ng/mL Total Protein (5.8-8.3) g/dL Albumin (3.0-4.8) g/dL Globulin gm/dL Albumin/Globulin Ratio (1.1-1.8) Triglycerides (35-160) mg/dL Cholesterol (130-200) mg/dL LDL Cholesterol Direct (0-129) mg/dL HDL Cholesterol (29-60) mg/dL TSH 3rd Generation 2.32 (0.46-4.68) mIU/mL Urine Color (YELLOW) Urine Appearance (CLEAR) Urine pH (4.7-8.0) Ur Specific [place] (1.005-1.035) Urine Protein (<30 mg/dL) mg/dL Urine Glucose (UA) (NEGATIVE) mg/dL Urine Ketones (NEGATIVE) mg/dL Urine Blood (NEGATIVE) Urine Nitrate (NEGATIVE) Urine Bilirubin (NEGATIVE) Urine Urobilinogen (<1 E.U./dL) E.U./dL Ur Leukocyte Esterase (NEGATIVE) Rhonda/uL Urine RBC (0-2) /hpf Urine WBC (0-6) /hpf Ur Epithelial Cells (0-5) /hpf Urine Bacteria (NEG) Urine Osmolality (300-1000) mosm/kg Ur Random Sodium meq/L 04/30/17 Range/Units 16:17 WBC (4.5-11.0) 10^3/ul RBC (3.5-6.1) 10^6/uL Hgb (14.0-18.0) g/dL Hct (42.0-52.0) % MCV (80.0-105.0) fl MCH (25.0-35.0) pg MCHC (31.0-37.0) g/dl RDW (11.5-14.5) % Plt Count (120.0-450.0) 10^3/uL MPV (7.0-11.0) fl Gran % (50.0-68.0) % Lymph % (Auto) (22.0-35.0) % [place] % (Auto) (1.0-6.0) % Eos % (Auto) (1.5-5.0) % Baso % (Auto) (0.0-3.0) % Gran # (1.4-6.5) Lymph # (1.2-3.4) [place] # (0.1-0.6) Eos # (0.0-0.7) Baso # (0.0-2.0) K/mm3 Sodium (132-148) mmol/L Potassium (3.6-5.0) mmol/L Chloride (98-107) mmol/L Carbon Dioxide (21-33) mmol/L Anion Gap (10-20) BUN (7-21) mg/dL Creatinine (0.8-1.5) mg/dL Est GFR ( Amer) Est GFR (Non-Af Amer) Random Glucose (70-110) mg/dL Hemoglobin A1c (4.2-6.5) % Serum Osmolality (272-300) mosm/kg Calcium (8.4-10.5) mg/dL Phosphorus (2.5-4.5) mg/dL Magnesium (1.7-2.2) mg/dL Total Bilirubin (0.2-1.3) mg/dL AST (17-59) U/L ALT (7-56) U/L Alkaline Phosphatase (38-126) U/L Lactate Dehydrogenase (333-699) U/L Total Creatine Kinase (35-230) U/L CK-MB (CK-2) (0.0-3.6) ng/mL CK-MB (CK-2) % Troponin I ng/mL Total Protein (5.8-8.3) g/dL Albumin (3.0-4.8) g/dL Globulin gm/dL Albumin/Globulin Ratio (1.1-1.8) Triglycerides (35-160) mg/dL Cholesterol (130-200) mg/dL LDL Cholesterol Direct (0-129) mg/dL HDL Cholesterol (29-60) mg/dL TSH 3rd Generation (0.46-4.68) mIU/mL Urine Color Yellow (YELLOW) Urine Appearance Clear (CLEAR) Urine pH 7.0 (4.7-8.0) Ur Specific [place] 1.015 (1.005-1.035) Urine Protein 100 H (<30 mg/dL) mg/dL Urine Glucose (UA) Negative (NEGATIVE) mg/dL Urine Ketones Negative (NEGATIVE) mg/dL Urine Blood Moderate H (NEGATIVE) Urine Nitrate Negative (NEGATIVE) Urine Bilirubin Negative (NEGATIVE) Urine Urobilinogen 1.0 H (<1 E.U./dL) E.U./dL Ur Leukocyte Esterase Negative (NEGATIVE) Rhonda/uL Urine RBC 2 - 5 (0-2) /hpf Urine WBC 0 - 2 (0-6) /hpf Ur Epithelial Cells 1 - 3 (0-5) /hpf Urine Bacteria Few (NEG) Urine Osmolality (300-1000) mosm/kg Ur Random Sodium meq/L Laboratory Results - last 24 hr 04/30/17 04/30/17 04/30/17 16:17 19:10 19:10 WBC RBC Hgb Hct MCV MCH MCHC RDW Plt Count MPV Gran % Lymph % (Auto) [place] % (Auto) Eos % (Auto) Baso % (Auto) Gran # Lymph # [place] # Eos # Baso # Sodium Potassium Chloride Carbon Dioxide Anion Gap BUN Creatinine Est GFR ( Amer) Est GFR (Non-Af Amer) Random Glucose Hemoglobin A1c Serum Osmolality 248 L Calcium Phosphorus Magnesium Total Bilirubin AST ALT Alkaline Phosphatase Lactate Dehydrogenase Total Creatine Kinase CK-MB (CK-2) CK-MB (CK-2) % Troponin I Total Protein Albumin Globulin Albumin/Globulin Ratio Triglycerides Cholesterol LDL Cholesterol Direct HDL Cholesterol TSH 3rd Generation 2.32 Urine Color Yellow Urine Appearance Clear Urine pH 7.0 Ur Specific [place] 1.015 Urine Protein 100 H Urine Glucose (UA) Negative Urine Ketones Negative Urine Blood Moderate H Urine Nitrate Negative Urine Bilirubin Negative Urine Urobilinogen 1.0 H Ur Leukocyte Esterase Negative Urine RBC 2 - 5 Urine WBC 0 - 2 Ur Epithelial Cells 1 - 3 Urine Bacteria Few Urine Osmolality Ur Random Sodium 04/30/17 04/30/17 05/01/17 19:10 23:30 05:30 WBC RBC Hgb Hct MCV MCH MCHC RDW Plt Count MPV Gran % Lymph % (Auto) [place] % (Auto) Eos % (Auto) Baso % (Auto) Gran # Lymph # [place] # Eos # Baso # Sodium 116 L* 118 L* Potassium 2.3 L* D 2.2 L* Chloride 72 L 73 L Carbon Dioxide 36 H 39 H Anion Gap 10 8 L BUN 13 13 Creatinine 0.8 0.9 Est GFR ( Amer) > 60 > 60 Est GFR (Non-Af Amer) > 60 > 60 Random Glucose 102 88 Hemoglobin A1c Serum Osmolality Calcium 8.5 8.5 Phosphorus 2.6 Magnesium 1.7 1.7 Total Bilirubin AST ALT Alkaline Phosphatase Lactate Dehydrogenase Total Creatine Kinase CK-MB (CK-2) CK-MB (CK-2) % Troponin I Total Protein Albumin Globulin Albumin/Globulin Ratio Triglycerides Cholesterol LDL Cholesterol Direct HDL Cholesterol TSH 3rd Generation Urine Color Urine Appearance Urine pH Ur Specific [place] Urine Protein Urine Glucose (UA) Urine Ketones Urine Blood Urine Nitrate Urine Bilirubin Urine Urobilinogen Ur Leukocyte Esterase Urine RBC Urine WBC Ur Epithelial Cells Urine Bacteria Urine Osmolality Ur Random Sodium 05/01/17 05/01/17 05/01/17 08:40 08:40 08:40 WBC RBC Hgb Hct MCV MCH MCHC RDW Plt Count MPV Gran % Lymph % (Auto) [place] % (Auto) Eos % (Auto) Baso % (Auto) Gran # Lymph # [place] # Eos # Baso # Sodium 122 L Potassium 3.1 L Chloride 78 L Carbon Dioxide 36 H Anion Gap 11 BUN 13 Creatinine 0.9 Est GFR ( Amer) > 60 Est GFR (Non-Af Amer) > 60 Random Glucose 103 Hemoglobin A1c 5.6 Serum Osmolality Calcium 8.9 Phosphorus Magnesium Total Bilirubin 1.5 H AST 51 ALT 36 Alkaline Phosphatase 74 Lactate Dehydrogenase 675 Total Creatine Kinase 315 H CK-MB (CK-2) 3.6 CK-MB (CK-2) % Cancelled Troponin I 0.23 H* D Total Protein 7.1 Albumin 4.1 Globulin 3.0 Albumin/Globulin Ratio 1.4 Triglycerides 58 Cholesterol 168 LDL Cholesterol Direct 89 HDL Cholesterol 60 TSH 3rd Generation 2.48 Urine Color Urine Appearance Urine pH Ur Specific [place] Urine Protein Urine Glucose (UA) Urine Ketones Urine Blood Urine Nitrate Urine Bilirubin Urine Urobilinogen Ur Leukocyte Esterase Urine RBC Urine WBC Ur Epithelial Cells Urine Bacteria Urine Osmolality Ur Random Sodium 05/01/17 05/01/17 05/01/17 08:40 09:03 09:03 WBC 11.2 H RBC 4.06 Hgb 13.9 L Hct 37.0 L MCV 91.1 MCH 34.2 MCHC 37.6 H RDW 12.2 Plt Count 264 MPV 10.0 Gran % 89.4 H Lymph % (Auto) 2.5 L [place] % (Auto) 8.0 H Eos % (Auto) 0.0 L Baso % (Auto) 0.1 Gran # 9.98 H Lymph # 0.3 L [place] # 0.9 H Eos # 0.0 Baso # 0.01 Sodium Potassium Chloride Carbon Dioxide Anion Gap BUN Creatinine Est GFR ( Amer) Est GFR (Non-Af Amer) Random Glucose Hemoglobin A1c Serum Osmolality Calcium Phosphorus Magnesium Total Bilirubin AST ALT Alkaline Phosphatase Lactate Dehydrogenase Total Creatine Kinase CK-MB (CK-2) CK-MB (CK-2) % Troponin I Total Protein Albumin Globulin Albumin/Globulin Ratio Triglycerides Cholesterol LDL Cholesterol Direct HDL Cholesterol TSH 3rd Generation Urine Color Urine Appearance Urine pH Ur Specific [place] Urine Protein Urine Glucose (UA) Urine Ketones Urine Blood Urine Nitrate Urine Bilirubin Urine Urobilinogen Ur Leukocyte Esterase Urine RBC Urine WBC Ur Epithelial Cells Urine Bacteria Urine Osmolality 253 L Ur Random Sodium 29 05/01/17 12:10 WBC RBC Hgb Hct MCV MCH MCHC RDW Plt Count MPV Gran % Lymph % (Auto) [place] % (Auto) Eos % (Auto) Baso % (Auto) Gran # Lymph # [place] # Eos # Baso # Sodium 122 L Potassium 2.8 L* Chloride 80 L Carbon Dioxide 34 H Anion Gap 11 BUN 13 Creatinine 0.8 Est GFR ( Amer) > 60 Est GFR (Non-Af Amer) > 60 Random Glucose 104 Hemoglobin A1c Serum Osmolality Calcium 8.6 Phosphorus Magnesium Total Bilirubin AST ALT Alkaline Phosphatase Lactate Dehydrogenase Total Creatine Kinase CK-MB (CK-2) CK-MB (CK-2) % Troponin I Total Protein Albumin Globulin Albumin/Globulin Ratio Triglycerides Cholesterol LDL Cholesterol Direct HDL Cholesterol TSH 3rd Generation Urine Color Urine Appearance Urine pH Ur Specific [place] Urine Protein Urine Glucose (UA) Urine Ketones Urine Blood Urine Nitrate Urine Bilirubin Urine Urobilinogen Ur Leukocyte Esterase Urine RBC Urine WBC Ur Epithelial Cells Urine Bacteria Urine Osmolality Ur Random Sodium Critical Care Progress Note - Nutrition Nutrition: Nutrition Category Date Time Status Heart Healthy Diet [DIET] Diets 05/01/17 Dinner Ordered Regular Diet [DIET] Diets 05/01/17 Lunch Ordered Assessment/Plan - Assessment and Plan (Free Text) Plan: Patient seen and examined, with resident, agree with note, with following additions/exceptions: Pt is 77yo male with PMH of COPD 2/2 heavy tobacco use who presented [place] [facility] due to frequent falls, NSTEMI (trop 0.17), hypokalemia of 1.9, and hyponatremia of 117, and was admitted to the ICU for close monitoring and repletion of electrolytes. Currently afebrile, HD stable, comfortable, NAD, no complaints ,tolerating PO diet. Patient's Na improving slowly, and appropriately. No major complaints Hyponatremia Hypokalemia Elevated Troponin COPD Recommend: - supp o2 as needed - Pulmicort BID - Duonebs PRN - no active ID issues - follow up cardiology - ASA, Plavix, Statin - ECHO - cont with NS @75cc/hr - regular diet - q12hr BMP - goal correction Na 6-8meq in 24hr - pain control - FS control - DVT ppx - GI ppx transfer to telemetry
[2017-05-01] MEDS ORDERED: Magnesium Sulfate 2 GM in Sodium Chloride 0.9% 100 ML IVPB ONE (15:35)
[2017-05-01] MEDS: cefTRIAXone 1 gm 1 GM/100 ML BAG IVPB SCH (16:21)
[2017-05-01 16:28] LABS: BLOOD UREA NITROGEN 14 mg/dL (7-21); CALCIUM 8.5 mg/dL (8.4-10.5); CARBON DIOXIDE 34 mmol/L (21-33); CHLORIDE 81 mmol/L (98-107); GFR AFRICAN-AMERICAN > 60; GLUCOSE,RANDOM 144 mg/dL (70-110); POTASSIUM 3.7 mmol/L (3.6-5.0); SODIUM 122 mmol/L (132-148)
[2017-05-01] MEDS ORDERED: Enoxaparin 80 mg Syringe SC SCH (16:45)
[2017-05-01] MEDS: Nitroglycerin 2% Ointment Foilpak UD TOP SCH ×2 (16:54→22:04)
--- NOTE | 2017-05-01 19:20 | CARD ---
APPROVED REPORT EXAM: Two-dimensional and M-mode echocardiogram with Doppler and color Doppler. INDICATION Chest Pain LVFX 2D DIMENSIONS Left Atrium (2D)4.1 (1.6-4.0cm)IVSd1.2 (0.7-1.1cm) LVDd5.0 (3.9-5.9cm)PWd1.2 (0.7-1.1cm) Aortic Valve AoV Peak Vnkpxvzu964.0cm/Jairon Peak GR.8mmHgLVOT Peak Tqcvrecv52.5cm/s LVOT VTI25.10cm Mitral Valve MV E Iscekobj06.3cm/sMV A Azrjcahg03.0cm/sE/A ratio1.2 TDI Lateral E' Peak V6.43cm/sMedial E' Peak V5.17cm/sE/Lateral E'14.5 E/Medial E'18.0 Tricuspid Valve TR Peak [id number]/sRAP [id number] Peak Gr.29mmHg [id number] LEFT VENTRICLE The left ventricle is normal size. There is mild concentric left ventricular hypertrophy. The left ventricular function is normal.EF-55% There is normal LV segmental wall motion. Transmitral Doppler flow pattern is Grade II-pseudonormal filling dynamics. No left ventricle thrombus noted on this study. There is no ventricular septal defect visualized. There is no left ventricular aneurysm. RIGHT VENTRICLE The right ventricle is normal size. There is normal right ventricular wall thickness. The right ventricular systolic function is normal. ATRIA The left atrium size is normal. The right atrium size is normal. The interatrial septum is intact with no evidence for an atrial septal defect. AORTIC VALVE The aortic valve is not well visualized. No aortic regurgitation is present. There is mild valvular aortic stenosis Vs aortic Sclerosis There is no aortic valvular vegetation. MITRAL VALVE The mitral valve is calcified but opens well. Mitral regurgitation is mild to moderate. There is no mitral valve stenosis. There is no evidence of mitral valve prolapse. TRICUSPID VALVE The tricuspid valve leaflets are thickened , but open well. There is mild tricuspid regurgitation.RVSp-39 mmof hg. There is no tricuspid valve stenosis. There is no tricuspid valve prolapse or vegetation. PULMONIC VALVE The pulmonic valve is not well visualized. GREAT VESSELS The aortic root is normal in size. The ascending aorta is normal in size. The pulmonary artery is normal. The IVC is normal in size and collapses >50% with inspiration. PERICARDIAL EFFUSION There is no pleural effusion. There is no pericardial effusion. <Conclusion> The left ventricle is normal size. There is mild concentric left ventricular hypertrophy. The left ventricular function is normal.EF-55% Mitral regurgitation is mild to moderate. There is mild tricuspid regurgitation.RVSp-39 mmof hg. The IVC is normal in size and collapses >50% with inspiration. There is no pericardial effusion.
--- NOTE | 2017-05-01 20:27 | CON ---
DATE: 05/01/2017 HISTORY OF PRESENT ILLNESS: A 77-year-old male with past medical history of reported COPD and chronic back pain presented to the ED with worsening lethargy, found to be profoundly hyponatremic, Nephrology being consulted. The patient reportedly has been feeling increasingly lethargic for the past few months; also reporting 40-pound weight loss in the past one and half months; the patient reports intermittent dizziness during these few months which he describes as vertigo; reports being given the medication as an outpatient for it but it has not helped him; otherwise, the patient reports that he has not been eating as well for the past few weeks; he has not been able to cook for himself and he relies on a friend bringing food to him; otherwise, the patient reports urinating frequently over the past few months; the patient also with chronic back pain for which he takes Percocet since many years; occasionally, he takes Advil for headaches and says that he has not taken more than 3 or 4 times over the past couple of weeks. MEDICATIONS: On review of the patient's medication from pharmacy, he is on OxyContin, Percocet, Zanaflex, lidocaine ointment, Voltaren gel, lisinopril 20 mg daily, amlodipine 10 mg daily (blood pressure meds were adjusted during last hospitalization in 12/2016 for COPD exacerbation). PAST MEDICAL HISTORY: As above. SOCIAL HISTORY: Last smoked a few days ago, has quit several times. FAMILY HISTORY: Denies any immediate family members having cancer. REVIEW OF SYSTEMS: Constitutional: Weight loss as per HPI. HEENT: No change in vision lately. Denies any dysphagia. Denies any sore throat, nasal discharge. Respiratory: Denies shortness of breath. Cardiovascular: Denies any palpitations or leg swelling. GI: No nausea, vomiting, or diarrhea. Last bowel movement a few days ago. : As per HPI. Urinating frequently. Denies any dysuria except when initially initiating urine stream. Reports slow urinary stream. Musculoskeletal: Has upper back pain. Psychiatric: Reports insomnia lately. Neuro: Intermittent vertigo. Vitals: This morning blood pressure 154/64, heart rate 91, respirations 22, temperature 98.2, O2 sat 94% on room air. PHYSICAL EXAMINATION: GENERAL: No distress, somewhat slow to respond; otherwise, conversing coherently in full sentences. HEENT: Moist mucous membranes. Nonicteric. NECK: No cervical lymphadenopathy. RESPIRATORY: Lungs clear to auscultation bilaterally, although with somewhat decreased air movement. No rales or rhonchi. No wheezes. CARDIOVASCULAR: Heart sounds S1, S2 normal. No murmurs, no gallops, no rubs. No carotid bruits. 2+ bilateral dorsalis pedis pulses. GI: Abdomen soft, mildly tender, mildly distended. : No bladder distention. MUSCULOSKELETAL: No CVA tenderness, has left upper back paraspinal tenderness. PSYCHIATRIC: Normal mood, somewhat flat affect. SKIN: Dryness noted on face, scalp, and forehead. EXTREMITIES: No leg edema. No cyanosis distally. Good capillary refill. LABORATORY DATA: Labs this morning CBC, WBC 11.2, hemoglobin 13.9, hematocrit 37.0, platelets 264. Chemistry panel: Sodium 122, increased from 117 on presentation; potassium 3.1, chloride 78, bicarb 36, BUN 13, creatinine 0.9, calcium 8.9 kg. T- bili 1.5. CK 315. Troponin-I 0.23. Albumin 4.1. TSH 2.48. Hemoglobin A1c 5.6. Urine studies this morning urine osmolality 253. Urine sodium 29. Chest x-ray on presentation, lungs clear. ASSESSMENT/PLAN 1. Hyponatremia. The patient gives a history that is consistent with likely inadequate solute intake; however, in the setting of constitutional symptoms including profound weight loss over short period of time, concern for malignancy remains; urine osmolality of 253 seen this morning after getting approximately 1 L of normal saline overnight may represent a urine osmolality that is decreasing in response to volume repletion; however, what goes against volume depletion is the patient's hypertensive readings since presentation; also, no history consistent with gastrointestinal losses and was not on any diuretics that may explain volume depletion; also, of note, while urine osmolality may seem somewhat low, it is not maximally low as would be expected with the normal physiologic response to hyponatremia and therefore, the possibility of syndrome of inappropriate antidiuretic hormone secretion still remains; agree with restarting normal saline at 75 mL an hour; rate of correction of serum sodium should be no more than 6 to 8 mEq/L over 24 hours which we are achieving; continue to monitor urine osmolality; if urine osmolality drops further in response to volume repletion than syndrome of inappropriate antidiuretic hormone secretion is less likely and volume depletion with inadequate solid intake remain the main etiology. 2. Hypertension. The patient was on amlodipine 10 mg daily and lisinopril 20 mg daily per pharmacy records; however, these were last filled in February so it is unclear the patient was actually taking these. We will restart amlodipine 10 mg daily. Hold off on starting lisinopril until it can be ascertained that the patient has been adequately volume replenished. 3. Vertigo, intermittent as per the patient. The patient was put on tizanidine which can possibly cause central nervous system symptoms; should continue to hold for now. 4. Hypokalemia. The patient was at some point on potassium supplementation, unclear if he has had a workup for secondary hypertension but hypokalemia in the setting of metabolic alkalosis can be consistent with hyperaldosteronism; continue potassium replenishment. 5. Metabolic alkalosis, decompensation for hypercapnia; should check venous gas to assess. Joselo Greenwood MD
--- NOTE | 2017-05-01 21:00 | HP ---
HISTORY OF PRESENT ILLNESS: Mr. Blancas is 77-year-old male presented to the ED with a history of fall on the left side. He felt dizzy and fell on the left side. CT head was unremarkable. He is complaining of left-sided chest pain. He was found to be hyponatremic with sodium of 117. Potassium was 1.9. He also reports significant weight loss. He has been a heavy smoker all his life. Cardiac enzymes are elevated in the ER. PAST MEDICAL HISTORY: None. PAST SURGICAL HISTORY: Unknown. FAMILY HISTORY: Noncontributory. No positive history of mother or father. PERSONAL HISTORY: Heavy smoker, smokes more than one pack of cigarettes a day. ALLERGIES: NO KNOWN DRUG ALLERGIES. HOME MEDICATIONS: None. REVIEW OF SYSTEMS: As per HPI. Rest of 12-point review of systems reviewed, negative. PHYSICAL EXAMINATION: GENERAL: Comfortable in bed, in no acute distress. VITAL SIGNS: Temperature 98.2, heart rate is 91 per minute, respiratory rate 20 per minute, blood pressure 177/89, pulse ox is 95% on room air. HEENT: Normal. Oral mucosa dry. NECK: Supple. No lymphadenopathy. CHEST: Air entry decreased on the left side. CARDIOVASCULAR: Tachycardia. S1 and S2 normal. No murmur. No gallop. ABDOMEN: Soft and nontender. No hepatosplenomegaly. EXTREMITIES: No edema. RESPIRATORY THERAPY ASSISTANT: Alert and oriented x3, moving all the names. No focal sensory or motor deficit. SKIN: No petechia. No rash. SPINE: Nontender. LABORATORY DATA: White count 11.5, hemoglobin 14.5, hematocrit 37.5, platelet count 294. Sodium 117, potassium 1.9, BUN 15, creatinine 1, glucose 119. Chest x-ray no infiltrate. CAT scan of the head is negative. ASSESSMENT: 1. History of fall. 2. Hyponatremia. 3. Hypokalemia. 4. Leukocytosis. 5. Non-ST elevation myocardial infarction. PLAN: He will be admitted to the hospital. Production Technologist consultation requested for admission to ICU because of severe hyponatremia and hypokalemia. IV fluid normal saline started. Norvasc 10 mg daily, aspirin 81 mg daily, Lipitor 40 mg daily, Zestril 20 mg daily, metoprolol 25 mg b.i.d., nitroglycerin paste, IV fluid at 75 mL an hour normal saline. Cardiology consultation Dr. Chino requested. Nephrology consultation Dr. Greenwood for hyponatremia. Heart healthy diet and full dose of anticoagulation for non-STEMI, Lovenox 80 mg subcutaneous q.12h. Tish Lara MD MTDD
--- NOTE | 2017-05-01 21:28 | PN ---
DATE: 05/01/2017 SUBJECTIVE: He is comfortable in bed, in no acute distress. Hyponatremia has improved. Sodium is 122 now. Potassium 3.7. He is mentating well. Confusion has resolved. He is still complaining of left-sided chest pain. No fever, no cough with expectoration. blood culture negative. REVIEW OF SYSTEMS: As per HPI, rest of 12-point review of systems reviewed and negative. PHYSICAL EXAMINATION: GENERAL: Comfortable in bed, in no acute distress. VITAL SIGNS: Temperature 98.2, heart rate is 91 per minute, respiratory rate 20 per minute, blood pressure 177/89, pulse ox is 95% on room air. HEENT: Normal. Oral mucosa dry. NECK: Supple. No lymphadenopathy. CHEST: Air entry decreased on the left side. CARDIOVASCULAR: Tachycardia. S1 and S2 normal. No murmur. No gallop. ABDOMEN: Soft and nontender. No hepatosplenomegaly. EXTREMITIES: No edema. ADULT CROSSING GUARD: Alert and oriented x3, moving all the names. No focal sensory or motor deficit. SKIN: No petechia. No rash. SPINE: Nontender. MEDICATIONS: Norvasc 10 mg daily, aspirin 81 mg daily, Lipitor 40 mg daily, ceftriaxone 1 g daily, Plavix 75 mg daily, Lovenox 80 mg subcutaneous q. 12, hydralazine 10 mg IV q. 6 hours p.r.n., Zestril 20 mg daily, Lopressor 25 mg p.o. b.i.d., nitroglycerin paste and IV fluid at 75 mL an hour. LABORATORY DATA: Sodium 122, potassium 3.7, BUN 14, creatinine 0.9. White count 11.2, hemoglobin 13.9, hematocrit 37, platelet count 264. ASSESSMENT: 1. Hyponatremia. 2. Hypokalemia. 3. Leukocytosis. 4. Recurrent fall. 5. Left pleural effusion. 6. Multiple rib fractures. PLAN: CAT scan of the chest was ordered to be done stat because of hyponatremia to rule out mass lesion in the lungs. No mass lesion identified on the CAT scan. He had left pleural effusion and multiple rib fractures, likely due to recurrent fall. We will control the pain. Hyponatremia improved. Hypokalemia improved. Cardiology is following for non-STEMI. Continue current medication. Continue full dose anticoagulation Lovenox. He is okay to transfer to telemetry monitoring. Discussed with the ICU staff, nurse and discussed with the patient. Tish Lara MD MTDJames
[2017-05-02] MEDS: Nitroglycerin 2% Ointment Foilpak UD TOP SCH ×3 (00:57→17:32)
--- NOTE | 2017-05-02 06:45 | CON ---
DATE: 05/01/2017 REASON FOR CONSULTATION: Positive troponin, rule out non-ST segment myocardial infarction, admitted with frequent fall, hyponatremia. BRIEF CLINICAL HISTORY: This is a 77-year-old male with no significant past medical history, etc., bilateral knee surgery 5 to 6 years ago, who was having frequent falls at home, admitted with weakness and lethargy, sodium 118, found to be troponin positive, Cardiology consult was called. The patient denies any chest pain. Denies any shortness of breath. Denies any palpitation. History of significant weight loss, 25 pounds over the period of 2 to 3 months. History of chronic obstructive pulmonary disease. PAST MEDICAL HISTORY: Past history significant for COPD, history of weight loss, and frequent falls. SOCIAL HISTORY: The patient used to drink alcohol; however, he reports that his last drink was 2 months ago and active tobacco abuse, a pack to half-a-pack a day. CURRENT MEDICATIONS: The patient at home was taking only Percocet. REVIEW OF SYSTEMS: As per HPI. ALLERGIES: NO KNOWN DRUG ALLERGIES. PHYSICAL EXAMINATION: As follows: VITAL SIGNS: Temperature afebrile, heart rate 70, blood pressure 181/74. HEENT: PERRLA intact. NECK: Supple. No carotid bruit or thyromegaly. CHEST: Clear to auscultation. HEART: S1 and S2, regular. ABDOMEN: Soft. EXTREMITIES: Clubbing and cyanosis negative. LABORATORY DATA: Blood workup as follows. WBC 11, hemoglobin 13, hematocrit 37, platelet count 264. Chemistries show sodium 122, potassium 3.7, chloride 81, carbon dioxide 34, anion gap of 11, BUN 46, and creatinine 0.9. Troponin was 0.17, repeat is 0.3. EKG shows normal sinus rhythm, no acute ST-T changes noted. IMPRESSION: Frequent falls, hyponatremia, chronic obstructive pulmonary disease, [id number] myocardial infarction. RECOMMENDATIONS: We will start Lovenox, beta shamika, and nitrates. When the sodium stabilizes, I will consider cardiac catheterization, possibly on Thursday. We will follow with you. The patient is asymptomatic. Metabolic issues, we will wait until the patient stabilizes mentation as well as improved overall patient's condition. Discussed with the patient's benefit and alternative, the patient agreed, possibly cardiac catheterization on Thursday. Interim, continue to treat as unstable agnina and non-STEMI. Thank you Dr. Bowser for providing us the opportunity in taking care of the patient, Lyndon Blancas. Supa Nick MD
[2017-05-02] MEDS ORDERED: Sodium Chloride 0.9% 1,000 ML IV ONE (07:38)
[2017-05-02 08:40] LABS: BASO # 0.01 K/mm3 (0.0-2.0); BASO % 0.1 % (0.0-3.0); GRAN # 9.15 (1.4-6.5); LYMPH # 0.4 (1.2-3.4); LYMPH % 3.9 % (22.0-35.0); MEAN CELL VOLUME 93.6 fl (80.0-105.0); MEAN CORPUSCULAR HEMOGLOBIN 33.6 pg (25.0-35.0); MEAN CORPUSCULAR HGB CONC 35.9 g/dl (31.0-37.0); MEAN PLATELET VOLUME 9.4 fl (7.0-11.0); RED CELL DISTRIBUTION WIDTH 12.7 % (11.5-14.5); WHITE BLOOD COUNT 10.5 10^3/ul (4.5-11.0)
[2017-05-02 08:54] LABS: ALB/GLOB RATIO 1.3 (1.1-1.8); ALKALINE PHOSPHATASE 56 U/L (38-126); ALT/SGPT 39 U/L (7-56); AST/SGOT 36 U/L (17-59); BILIRUBIN,TOTAL 0.9 mg/dL (0.2-1.3); BLOOD UREA NITROGEN 19 mg/dL (7-21); CALCIUM 8.4 mg/dL (8.4-10.5); CARBON DIOXIDE 33 mmol/L (21-33); CHLORIDE 87 mmol/L (95-110); GFR AFRICAN-AMERICAN > 60; GLUCOSE,RANDOM 121 mg/dL (70-110); MAGNESIUM 2.1 mg/dL (1.7-2.2); PHOSPHOROUS 2.4 mg/dL (2.5-4.5); POTASSIUM 4.4 mmol/L (3.6-5.0); SODIUM 125 mmol/L (132-148)
[2017-05-02] MEDS: Enoxaparin 80 mg Syringe SC SCH ×2 (10:11→23:19)
[2017-05-02] MEDS: cefTRIAXone 1 gm 1 GM/100 ML BAG IVPB SCH (10:11)
--- NOTE | 2017-05-02 13:54 | PN ---
DATE: 05/02/2017 REASON FOR CONSULTATION: Followup positive troponin, non-ST segment myocardial infarction, admitted with fall, hyponatremia. SUBJECTIVE: The patient denies any chest pain, history of shortness of breath, any palpitations. OBJECTIVE: GENERAL: Lying flat in the bed, getting IV fluid, not in apparent distress. VITAL SIGNS: As follows: Temperature afebrile, heart rate 60, blood pressure 126/77. HEENT: PERRLA. Extraocular muscles are intact. NECK: Supple. No carotid bruit or thyromegaly. CHEST: Clear to auscultation. HEART: S1 and S2 regular. ABDOMEN: Soft. EXTREMITIES: Clubbing and cyanosis negative. LABORATORY DATA: Blood workup as follows; WBC 10.5, hemoglobin , hematocrit 32, and platelet count 254. Chemistry shows sodium 125, potassium 4.4, chloride 87, carbon dioxide 33, anion gap of 9, BUN 19, and creatinine 0.9. IMPRESSION: Hyponatremia, non-ST segment myocardial infarction, chronic obstructive pulmonary disease, history of weight loss. The patient had echocardiography done yesterday that showed ejection fraction 5%, [id number] mitral regurgitation, mild tricuspid regurgitation, systolic pressure 39, normal IVC. RECOMMENDATIONS: We will cut down the IV fluids to 50 mL an hour. Monitor electrolytes. Give the Neutra-Phos 2 packs b.i.d. We will continue aspirin, Plavix, continue low-dose beta shamika, and treat his unstable angina with Nitropaste and Enoxaparin. Keep n.p.o. after midnight for cardiac catheterization on Thursday. Blood pressure chart reviewed. The patient's yesterday's blood pressure was 161/74. This morning around 1 a.m., pressure dropped to 90. We will cut down he blood pressure medication accordingly to prevent going into hypotension and insult to the kidney and supplement phosphate. We will cut down the lisinopril to 10 mg to prevent going into hypotension. We will continue p.r.n. hydralazine. Continue aspirin, continue Plavix and stop Lovenox after 4 doses. We will keep him n.p.o. for cardiac catheterization on Thursday. Thank you Dr. Rojas and Dr. Bowser for providing us the opportunity in taking care of the patient, Lyndon Blancas. Supa Nick MD
[2017-05-02] MEDS: Potassium & Sodium Phosphate PO SCH ×2 (14:00→18:32)
[2017-05-02] MEDS: Sodium Chloride 0.9% 1,000 ML IV SCH (17:36)
--- NOTE | 2017-05-02 18:29 | CP.PCM.PN ---
Subjective - Date & Time of Evaluation Date of Evaluation: 05/02/17 Time of Evaluation: 12:30 - Subjective Subjective: Patient reports feeling well; tolerating diet; ambulating to bathroom, not reporting any difficulty; Objective - Vital Signs/Intake and Output Vital Signs (last 24 hours): Temp Pulse Resp BP Pulse Ox 98.1 F 89 20 116/55 L 92 L 05/02/17 12:00 05/02/17 18:00 05/02/17 12:00 05/02/17 12:00 05/02/17 06:12 Intake and Output: 05/02/17 05/02/17 06:59 18:59 Intake Total 0 Output Total 150 Balance -150 - Medications Medications: Current Medications Amlodipine Besylate (Norvasc) 10 mg PO DAILY [facility] Last Admin: 05/02/17 10:10 Dose: 10 mg Aspirin (Aspirin Chewable) 81 mg PO DAILY [facility] Last Admin: 05/02/17 10:10 Dose: 81 mg Atorvastatin Calcium (Lipitor) 40 mg PO DIN [facility] Last Admin: 05/02/17 17:23 Dose: 40 mg Clopidogrel Bisulfate (Plavix) 75 mg PO DAILY [facility] Last Admin: 05/02/17 10:10 Dose: 75 mg Enoxaparin Sodium (Lovenox) 80 mg SC 1000,2200 [facility] PRN Reason: Protocol Stop: 05/03/17 23:59 Last Admin: 05/02/17 10:11 Dose: 80 mg Hydralazine HCl (Apresoline) 10 mg IVP Q6 PRN PRN Reason: SBP> 160 Last Admin: 05/01/17 02:56 Dose: 10 mg Sodium Chloride (Sodium Chloride 0.9%) 1,000 mls @ 75 mls/hr IV .[id number] [facility] Last Admin: 05/02/17 17:36 Dose: 75 mls/hr Ceftriaxone Sodium (Rocephin 1 Gram Ivpb) 1 gm in 100 mls @ 100 mls/hr IVPB DAILY [facility] PRN Reason: Protocol Last Admin: 05/02/17 10:11 Dose: 100 mls/hr Lisinopril (Zestril) 10 mg PO DAILY [facility] Metoprolol Tartrate (Lopressor) 25 mg PO BID [facility] Last Admin: 05/02/17 17:23 Dose: 25 mg Nitroglycerin (Nitro-Bid 2% Oint) 1 ea TOP 0000,0600,1200,1800 [facility] Last Admin: 05/02/17 17:32 Dose: Not Given Potassium Phos/Sodium Phos (Neutra-Phos) 1 pkt PO TID [facility] Stop: 05/03/17 14:00 Last Admin: 05/02/17 14:00 Dose: Not Given - Labs Labs: 05/02/17 08:00 05/02/17 08:00 PT 11.2 Seconds (9.9-11.8) 04/30/17 12:40 INR 1.04 (0.93-1.08) 04/30/17 12:40 APTT 26.8 Seconds (23.7-30.8) 04/30/17 12:40 - Constitutional Appears: Non-toxic, No Acute Distress - Head Exam Head Exam: NORMAL INSPECTION - Eye Exam Eye Exam: Normal appearance - ENT Exam ENT Exam: Mucous Membranes Moist - Respiratory Exam Respiratory Exam: Clear to Ausculation Bilateral. absent: Respiratory Distress - Cardiovascular Exam Cardiovascular Exam: RRR, +S1, +S2 - GI/Abdominal Exam GI & Abdominal Exam: Soft. absent: Distended, Tenderness - Extremities Exam Additional comments: no leg edema; - Neurological Exam Neurological Exam: Alert, Awake - Psychiatric Exam Additional comments: slow to respond to questions; - Skin Skin Exam: Warm. 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
--- NOTE | 2017-05-02 21:16 | PN ---
DATE: SUBJECTIVE: The patient is 77-year-old, seen and examined, lying in bed, seems to be comfortable. No chest pain. No shortness of breath. According to nurse, he ate well. No history of nausea or vomiting. No fever. No chills. The patient was admitted because of generalized weakness and status post fall and he was also hyponatremic on admission. PHYSICAL EXAMINATION: GENERAL: He is awake, alert, able to communicate. VITAL SIGNS: He is afebrile, pulse 72, respiration 20 and blood pressure 116/55. LUNGS: Bilateral fair airflow. No rhonchi or crackle. HEART: S1 and S2 audible. ABDOMEN: Soft, obese, and nontender. No rebound. No guarding. NEUROLOGIC: He is awake, alert, and able to answer simple question. EXTREMITIES: Bilateral leg, no edema. LABORATORY DATA: WBC is 10.5, hemoglobin 11.5. hematocrit 32 and platelets of 254. Chemistry; sodium 125, potassium 4.4, chloride 87, CO2 of 33, BUN 19, creatinine is 0.9 and blood sugar of 121. Initial troponin was 0.23. Blood cultures and urine cultures are negative. T8 vertebral fracture, multiple left-sided rib fracture and left pleural effusion. A CT scan of the head is negative. ASSESSMENT: 1. Status post fall. 2. Hyponatremia. 3. Pleural effusion. 4. Electrolyte imbalance. 5. T8 vertebral fracture. PLAN: Currently, the patient is on IV fluid recommended by Nephrology. He is on Plavix and aspirin. He is also getting Lovenox. Physical therapy has been recommended. We will follow up his electrolyte, CBC, and CMP in a.m. Zhanna Herrera MD
[2017-05-03] MEDS: Sodium Chloride 0.9% 1,000 ML IV SCH ×2 (02:30→17:54)
[2017-05-03] MEDS: Nitroglycerin 2% Ointment Foilpak UD TOP SCH ×5 (06:41→23:44)
[2017-05-03 07:45] LABS: GRAN # 10.93 (1.4-6.5); GRAN % 90.1 % (50.0-68.0); HEMATOCRIT 30.7 % (42.0-52.0); LYMPH # 0.4 (1.2-3.4); LYMPH % 3.5 % (22.0-35.0); MEAN CELL VOLUME 95.6 fl (80.0-105.0); MEAN CORPUSCULAR HEMOGLOBIN 33.6 pg (25.0-35.0); MEAN CORPUSCULAR HGB CONC 35.2 g/dl (31.0-37.0); MEAN PLATELET VOLUME 9.3 fl (7.0-11.0); MONO # 0.8 (0.1-0.6); MONO % 6.4 % (1.0-6.0); RED CELL DISTRIBUTION WIDTH 13.1 % (11.5-14.5); WHITE BLOOD COUNT 12.1 10^3/ul (4.5-11.0)
[2017-05-03 07:55] LABS: ALB/GLOB RATIO 1.2 (1.1-1.8); ALKALINE PHOSPHATASE 55 U/L (38-126); ALT/SGPT 39 U/L (7-56); AST/SGOT 35 U/L (17-59); BILIRUBIN,TOTAL 0.8 mg/dL (0.2-1.3); BLOOD UREA NITROGEN 31 mg/dL (7-21); CALCIUM 8.2 mg/dL (8.4-10.5); CARBON DIOXIDE 31 mmol/L (21-33); CHLORIDE 92 mmol/L (95-110); GFR AFRICAN-AMERICAN > 60; GLUCOSE,RANDOM 111 mg/dL (70-110); MAGNESIUM 1.7 mg/dL (1.7-2.2); PHOSPHOROUS 2.6 mg/dL (2.5-4.5); POTASSIUM 3.9 mmol/L (3.6-5.0); SODIUM 127 mmol/L (132-148); TOTAL PROTEIN 5.4 g/dL (5.8-8.3)
[2017-05-03] MEDS: Enoxaparin 80 mg Syringe SC SCH ×2 (10:22→21:25)
[2017-05-03] MEDS: cefTRIAXone 1 gm 1 GM/100 ML BAG IVPB SCH (10:24)
[2017-05-03] MEDS: Potassium & Sodium Phosphate PO SCH ×2 (10:25→14:24)
[2017-05-03] MEDS ORDERED: Sodium Chloride 0.9% 1,000 ML IV SCH (11:02)
--- NOTE | 2017-05-03 14:10 | CP.PCM.PN ---
Subjective - Date & Time of Evaluation Date of Evaluation: 05/03/17 Time of Evaluation: 11:30 - Subjective Subjective: 77 yo M w/ htn, COPD?, admitted with chest pain, new weight loss and profound hyponatremia; Reports feeling well; tolerating diet; some shortness of breath; Objective - Vital Signs/Intake and Output Vital Signs (last 24 hours): Temp Pulse Resp BP Pulse Ox 98.5 F 80 20 111/54 L 92 L 05/03/17 12:00 05/03/17 12:00 05/03/17 12:00 05/03/17 12:00 05/03/17 00:01 Intake and Output: 05/03/17 05/03/17 06:59 18:59 Intake Total 480 480 Balance 480 480 - Medications Medications: Current Medications Amlodipine Besylate (Norvasc) 10 mg PO DAILY [facility] Last Admin: 05/03/17 10:25 Dose: Not Given Aspirin (Aspirin Chewable) 81 mg PO DAILY [facility] Last Admin: 05/03/17 10:22 Dose: 81 mg Atorvastatin Calcium (Lipitor) 40 mg PO DIN [facility] Last Admin: 05/02/17 17:23 Dose: 40 mg Clopidogrel Bisulfate (Plavix) 75 mg PO DAILY [facility] Last Admin: 05/03/17 10:22 Dose: 75 mg Enoxaparin Sodium (Lovenox) 80 mg SC 1000,2200 [facility] PRN Reason: Protocol Stop: 05/03/17 23:59 Last Admin: 05/03/17 10:22 Dose: 80 mg Hydralazine HCl (Apresoline) 10 mg IVP Q6 PRN PRN Reason: SBP> 160 Last Admin: 05/01/17 02:56 Dose: 10 mg Ceftriaxone Sodium (Rocephin 1 Gram Ivpb) 1 gm in 100 mls @ 100 mls/hr IVPB DAILY [facility] PRN Reason: Protocol Last Admin: 05/03/17 10:24 Dose: 100 mls/hr Sodium Chloride (Sodium Chloride 0.9%) 1,000 mls @ 125 mls/hr IV .Q8H [facility] Last Admin: 05/03/17 11:19 Dose: 125 mls/hr Lisinopril (Zestril) 10 mg PO DAILY [facility] Last Admin: 05/03/17 10:23 Dose: 10 mg Metoprolol Tartrate (Lopressor) 25 mg PO BID [facility] Last Admin: 05/03/17 10:22 Dose: 25 mg Nitroglycerin (Nitro-Bid 2% Oint) 1 ea TOP 0000,0600,1200,1800 [facility] Last Admin: 05/03/17 13:06 Dose: 1 ea - Labs Labs: 05/03/17 05:00 05/03/17 07:34 PT 11.2 Seconds (9.9-11.8) 04/30/17 12:40 INR 1.04 (0.93-1.08) 04/30/17 12:40 APTT 26.8 Seconds (23.7-30.8) 04/30/17 12:40 - Constitutional Appears: Non-toxic, No Acute Distress - Head Exam Head Exam: NORMAL INSPECTION - Eye Exam Eye Exam: Normal appearance. absent: Scleral icterus - ENT Exam ENT Exam: Mucous Membranes Moist - Respiratory Exam Additional comments: Upper airway congested sounds, otherwise clear; - Cardiovascular Exam Cardiovascular Exam: RRR, +S1, +S2 - GI/Abdominal Exam GI & Abdominal Exam: Distended, Soft - Extremities Exam Additional comments: no leg edema; - Neurological Exam Neurological Exam: Alert, Awake - Psychiatric Exam Psychiatric exam: Normal Mood - Skin Skin Exam: Warm. absent: Cyanosis Assessment and Plan (1) Hyponatremia Assessment & Plan: Suspecting some degree of intra-vascular volume depletion at least as being sensed by kidneys; hyponatremia improving slowly with volume repletion; cannot r /o some component of SIADH; increasing NS to 125 cc/hr; repeating urine studies for osm, Na and Cl; Status: Acute (2) HTN (hypertension) Assessment & Plan: BP dropping precipitously after being started on lisinopril, consistent with a renin driven htn but underlying volume depletion; agree with decreasing dose to 10 mg daily; continue to hold amoldipine; Status: Acute (3) Volume depletion Assessment & Plan: See above; IVF w/ NS at 125 cc/hr; Status: Acute
[2017-05-03] MEDS ORDERED: Sodium Chloride 3% 500 ML IV SCH (15:30)
--- NOTE | 2017-05-03 18:46 | PN ---
DATE: SUBJECTIVE: The patient is 77 years old, seen and examined, lying in bed, seems to be comfortable, eating and tolerating. PHYSICAL EXAMINATION: VITAL SIGNS: He is afebrile, pulse 18, respirations 20 and blood pressure 111/54. LUNGS: Bilateral fair airflow. No rhonchi or crackle. HEART: S1 and S2 audible. ABDOMEN: Soft, obese and nontender. No rebound. No guarding. EXTREMITIES: Able to move all extremities. Bilateral leg with no edema. NEUROLOGIC: Awake, alert, oriented and communicative. LABORATORY DATA: Sodium is 127, potassium 3.9, chloride 92, CO2 31, BUN 31, creatinine 1.0 and blood sugar 111. WBC is 12, hemoglobin 10.8, hematocrit 30.7 and platelets of 291. Blood cultures and urine cultures are negative. ASSESSMENT: 1. Status post fall. 2. Hyponatremia, improving. 3. Electrolyte imbalance. 4. Thoracic fracture. 5. Deconditioning and difficulty walking. 6. Hyperlipidemia. 7. [id number] myocardial infarction. 8. History of chronic obstructive pulmonary disease. PLAN: Currently, the patient is on aspirin and Lovenox. He has been started on hypertonic saline. He is on Plavix and Rocephin. Follow up his electrolyte in a.m. Zhanna Herrera MD
--- NOTE | 2017-05-03 19:16 | PN ---
DATE: 05/03/2017 REASON FOR CONSULTATION: Followup positive troponin, non-ST segment myocardial infarction, admitted with severe hyponatremia and status post fall. SUBJECTIVE: The patient denies any chest pain, shortness of breath, or any palpitations. PHYSICAL EXAMINATION: VITAL SIGNS: Temperature afebrile, heart rate 80, blood pressure 111/54. HEENT: PERRLA intact. NECK: Supple. No carotid bruit or thyromegaly. CHEST: Clear to auscultation. HEART: S1 and S2 regular. ABDOMEN: Soft. EXTREMITIES: Clubbing and cyanosis negative. LABORATORY DATA: Blood workup as follows; WBC 12.8, hemoglobin 10.8, hematocrit 30.7, and platelet count 291. Chemistry shows sodium 127, potassium 3.9, chloride 92, carbon dioxide 31, anion gap of 9, BUN 31, creatinine 1.0, total protein 5.4, albumin 3, hemoglobin showed . IMPRESSION: Troponin positive, non-ST segment myocardial infarction, coronary artery disease, and hyponatremia. The patient had echocardiography done on 05/01/2017, revealed ejection fraction 55%, [id number] mitral regurgitation, mild tricuspid regurgitation, right ventricular systolic pressure 39. RECOMMENDATIONS: Continue aspirin, continue Plavix, continue beta-shamika, continue atorvastatin. Discontinue enoxaparin after this dose, put an inch of Nitropaste. Continue amlodipine. Continue Plavix 5 mg daily. We will cut down fluid to 50 mL an hour and with 3% saline. We will give load with aspirin and Plavix and keep n.p.o. for cardiac cath tomorrow. His plan of care is already discussed with the patient. The patient is able to proceed for the cardiac catheterization. We will follow with you. Thank you Dr. Bowser for providing us the opportunity in taking care of the patient, Lyndon Blancas. Supa Nick MD
--- NOTE | 2017-05-03 22:19 | CP.PCM.PN ---
Subjective - Date & Time of Evaluation Date of Evaluation: 05/03/17 Time of Evaluation: 22:14 - Subjective Subjective: Patient has been confused ,trying to get out of bed. States that this is May and year is 2016. Does not say where is he at. Has no complaints but states that he wants to go to bathroom and is trying to get out of bed. Medical record was reviewed. This 77 year old white male was admitted with dizziness ,chest pain, NSTEMI, hyponatremia ,hypokalemia,leukocytosis, hematuria,had a fall. Has PMH of COPD,frequent falls,heavy smoking,no other significant history. Objective - Vital Signs/Intake and Output Vital Signs (last 24 hours): Temp Pulse Resp BP Pulse Ox 98 F 86 18 150/80 97 05/03/17 18:00 05/03/17 18:07 05/03/17 18:00 05/03/17 18:07 05/03/17 18:00 Intake and Output: 05/03/17 05/04/17 18:59 06:59 Intake Total 480 Balance 480 - Medications Medications: Current Medications Amlodipine Besylate (Norvasc) 10 mg PO DAILY [facility] Last Admin: 05/03/17 10:25 Dose: Not Given Aspirin (Aspirin Chewable) 81 mg PO DAILY [facility] Last Admin: 05/03/17 10:22 Dose: 81 mg Atorvastatin Calcium (Lipitor) 40 mg PO DIN [facility] Last Admin: 05/03/17 18:07 Dose: 40 mg Clopidogrel Bisulfate (Plavix) 75 mg PO DAILY [facility] Last Admin: 05/03/17 10:22 Dose: 75 mg Enoxaparin Sodium (Lovenox) 80 mg SC 1000,2200 [facility] PRN Reason: Protocol Stop: 05/03/17 23:59 Last Admin: 05/03/17 21:25 Dose: 80 mg Hydralazine HCl (Apresoline) 10 mg IVP Q6 PRN PRN Reason: SBP> 160 Last Admin: 05/01/17 02:56 Dose: 10 mg Ceftriaxone Sodium (Rocephin 1 Gram Ivpb) 1 gm in 100 mls @ 100 mls/hr IVPB DAILY [facility] PRN Reason: Protocol Last Admin: 05/03/17 10:24 Dose: 100 mls/hr Sodium Chloride (Sodium Chloride 0.9%) 1,000 mls @ 50 mls/hr IV .Q20H [facility] Stop: 05/04/17 23:59 Last Admin: 05/03/17 17:54 Dose: Not Given Sodium Chloride (Hypertonic Saline 3%) 500 mls @ 20 mls/hr IV .Q24H [facility] Stop: 05/04/17 03:30 Last Admin: 05/03/17 17:45 Dose: 20 mls/hr Lisinopril (Zestril) 10 mg PO DAILY [facility] Last Admin: 05/03/17 10:23 Dose: 10 mg Metoprolol Tartrate (Lopressor) 25 mg PO BID [facility] Last Admin: 05/03/17 18:07 Dose: 25 mg Nitroglycerin (Nitro-Bid 2% Oint) 1 ea TOP 0000,0600,1200,1800 [facility] Last Admin: 05/03/17 18:07 Dose: 1 ea - Labs Labs: 05/03/17 05:00 05/03/17 07:34 PT 11.2 Seconds (9.9-11.8) 04/30/17 12:40 INR 1.04 (0.93-1.08) 04/30/17 12:40 APTT 26.8 Seconds (23.7-30.8) 04/30/17 12:40 Microbiology Studies 04/30/17 19:16 Blood Culture - Preliminary Blood NO GROWTH AFTER 3 DAYS 04/30/17 19:16 Blood Culture - Preliminary Blood NO GROWTH AFTER 3 DAYS Lab Studies 05/03/17 05/03/17 05/03/17 Range/Units 22:12 08:08 07:34 WBC (4.5-11.0) 10^3/ul RBC (3.5-6.1) 10^6/uL Hgb (14.0-18.0) g/dL Hct (42.0-52.0) % MCV (80.0-105.0) fl MCH (25.0-35.0) pg MCHC (31.0-37.0) g/dl RDW (11.5-14.5) % Plt Count (120.0-450.0) 10^3/uL MPV (7.0-11.0) fl Gran % (50.0-68.0) % Lymph % (Auto) (22.0-35.0) % Loup % (Auto) (1.0-6.0) % Eos % (Auto) (1.5-5.0) % Baso % (Auto) (0.0-3.0) % Gran # (1.4-6.5) Lymph # (1.2-3.4) Loup # (0.1-0.6) Eos # (0.0-0.7) Baso # (0.0-2.0) K/mm3 Sodium 127 L (132-148) mmol/L Potassium 3.9 (3.6-5.0) mmol/L Chloride 92 L (95-110) mmol/L Carbon Dioxide 31 (21-33) mmol/L Anion Gap 8 L (10-20) BUN 31 H (7-21) mg/dL Creatinine 1.0 (0.8-1.5) mg/dL Est GFR ( Amer) > 60 Est GFR (Non-Af Amer) > 60 POC Glucose (mg/dL) 156 H (65-110) mg/dL Random Glucose 111 H (70-110) mg/dL Calcium 8.2 L (8.4-10.5) mg/dL Phosphorus 2.6 (2.5-4.5) mg/dL Magnesium 1.7 (1.7-2.2) mg/dL Total Bilirubin 0.8 (0.2-1.3) mg/dL AST 35 (17-59) U/L ALT 39 (7-56) U/L Alkaline Phosphatase 55 (38-126) U/L Total Protein 5.4 L (5.8-8.3) g/dL Albumin 3.0 (3.0-4.8) g/dL Globulin 2.4 gm/dL Albumin/Globulin Ratio 1.2 (1.1-1.8) Urine Osmolality 589 (300-1000) mosm/kg 05/03/17 Range/Units 05:00 WBC 12.1 H (4.5-11.0) 10^3/ul RBC 3.21 L (3.5-6.1) 10^6/uL Hgb 10.8 L (14.0-18.0) g/dL Hct 30.7 L (42.0-52.0) % MCV 95.6 (80.0-105.0) fl MCH 33.6 (25.0-35.0) pg MCHC 35.2 (31.0-37.0) g/dl RDW 13.1 (11.5-14.5) % Plt Count 291 (120.0-450.0) 10^3/uL MPV 9.3 (7.0-11.0) fl Gran % 90.1 H (50.0-68.0) % Lymph % (Auto) 3.5 L (22.0-35.0) % Loup % (Auto) 6.4 H (1.0-6.0) % Eos % (Auto) 0.0 L (1.5-5.0) % Baso % (Auto) 0.0 (0.0-3.0) % Gran # 10.93 H (1.4-6.5) Lymph # 0.4 L (1.2-3.4) Loup # 0.8 H (0.1-0.6) Eos # 0.0 (0.0-0.7) Baso # 0.00 (0.0-2.0) K/mm3 Sodium (132-148) mmol/L Potassium (3.6-5.0) mmol/L Chloride (95-110) mmol/L Carbon Dioxide (21-33) mmol/L Anion Gap (10-20) BUN (7-21) mg/dL Creatinine (0.8-1.5) mg/dL Est GFR ( Amer) Est GFR (Non-Af Amer) POC Glucose (mg/dL) (65-110) mg/dL Random Glucose (70-110) mg/dL Calcium (8.4-10.5) mg/dL Phosphorus (2.5-4.5) mg/dL Magnesium (1.7-2.2) mg/dL Total Bilirubin (0.2-1.3) mg/dL AST (17-59) U/L ALT (7-56) U/L Alkaline Phosphatase (38-126) U/L Total Protein (5.8-8.3) g/dL Albumin (3.0-4.8) g/dL Globulin gm/dL Albumin/Globulin Ratio (1.1-1.8) Urine Osmolality (300-1000) mosm/kg - Constitutional Appears: No Acute Distress - Head Exam Head Exam: ATRAUMATIC, NORMAL INSPECTION, NORMOCEPHALIC - Eye Exam Eye Exam: Normal appearance - ENT Exam ENT Exam: Normal External Ear Exam - Neck Exam Neck Exam: Normal Inspection - Respiratory Exam Respiratory Exam: NORMAL BREATHING PATTERN - Cardiovascular Exam Cardiovascular Exam: absent: JVD - GI/Abdominal Exam GI & Abdominal Exam: absent: Distended - Rectal Exam Rectal Exam: Deferred - Exam Additional comments: Deferred. - Extremities Exam Extremities Exam: Normal Inspection - Back Exam Back Exam: NORMAL INSPECTION - Neurological Exam Neurological Exam: Altered Additional comments: Confused. - Psychiatric Exam Psychiatric exam: Agitated - Skin Skin Exam: Normal Color Assessment and Plan - Assessment and Plan (Free Text) Assessment: Confusion. Hyponatremia. S/P fall. NSTEMI. Leukocytosis. Hematuria. COPD. Plan: Vest restraints. Ativan .5 mg IV x 1. Will get ABG if still agitated. Will give kaopectate for diarrhoea. FSBS---->156 mg %. Pulse ox ---->97 % on RA. Continue present management.
[2017-05-03] MEDS ORDERED: Bismuth Subsalicylate 262 mg/15 ml Sus (240 ml) PO STA (22:32)
[2017-05-04 01:48] LABS: BASO # 0.01 K/mm3 (0.0-2.0); BASO % 0.1 % (0.0-3.0); GRAN # 10.97 (1.4-6.5); GRAN % 86.2 % (50.0-68.0); HEMATOCRIT 26.5 % (42.0-52.0); LYMPH # 0.8 (1.2-3.4); LYMPH % 6.4 % (22.0-35.0); MEAN CELL VOLUME 95.7 fl (80.0-105.0); MEAN CORPUSCULAR HEMOGLOBIN 34.7 pg (25.0-35.0); MEAN CORPUSCULAR HGB CONC 36.2 g/dl (31.0-37.0); MEAN PLATELET VOLUME 8.6 fl (7.0-11.0); MONO # 0.9 (0.1-0.6); MONO % 7.3 % (1.0-6.0); RED CELL DISTRIBUTION WIDTH 13.2 % (11.5-14.5); WHITE BLOOD COUNT 12.7 10^3/ul (4.5-11.0)
[2017-05-04] MEDS: Nitroglycerin 2% Ointment Foilpak UD TOP SCH ×4 (06:24→23:36)
[2017-05-04 07:54] LABS: BASO # 0.01 K/mm3 (0.0-2.0); BASO % 0.1 % (0.0-3.0); GRAN # 8.49 (1.4-6.5); GRAN % 83.9 % (50.0-68.0); LYMPH # 0.8 (1.2-3.4); LYMPH % 7.6 % (22.0-35.0); MEAN CELL VOLUME 96.1 fl (80.0-105.0); MEAN CORPUSCULAR HEMOGLOBIN 34.2 pg (25.0-35.0); MEAN CORPUSCULAR HGB CONC 35.6 g/dl (31.0-37.0); MEAN PLATELET VOLUME 8.9 fl (7.0-11.0); MONO # 0.9 (0.1-0.6); MONO % 8.4 % (1.0-6.0); RED CELL DISTRIBUTION WIDTH 13.2 % (11.5-14.5); WHITE BLOOD COUNT 10.1 10^3/ul (4.5-11.0)
[2017-05-04 08:03] LABS: HEMATOCRIT 22.2 % (42.0-52.0)
[2017-05-04 08:14] LABS: ALKALINE PHOSPHATASE 39 U/L (38-126); ALT/SGPT 33 U/L (7-56); AST/SGOT 26 U/L (17-59); BILIRUBIN,TOTAL 0.5 mg/dL (0.2-1.3); BLOOD UREA NITROGEN 56 mg/dL (7-21); CALCIUM 7.8 mg/dL (8.4-10.5); CARBON DIOXIDE 21 mmol/L (21-33); CHLORIDE 103 mmol/L (98-107); GFR AFRICAN-AMERICAN > 60; GLUCOSE,RANDOM 101 mg/dL (70-110); MAGNESIUM 1.7 mg/dL (1.7-2.2); PHOSPHOROUS 2.7 mg/dL (2.5-4.5); POTASSIUM 3.4 mmol/L (3.6-5.0); SODIUM 133 mmol/L (132-148); TOTAL PROTEIN 4.8 g/dL (5.8-8.3)
[2017-05-04 09:02] LABS: MEAN CELL VOLUME 96.1 fl (80.0-105.0); MEAN CORPUSCULAR HEMOGLOBIN 34.6 pg (25.0-35.0); MEAN CORPUSCULAR HGB CONC 36.1 g/dl (31.0-37.0); MEAN PLATELET VOLUME 8.8 fl (7.0-11.0); RED CELL DISTRIBUTION WIDTH 13.1 % (11.5-14.5); WHITE BLOOD COUNT 11.6 10^3/ul (4.5-11.0)
[2017-05-04 09:05] LABS: HEMATOCRIT 21.9 % (42.0-52.0)
[2017-05-04] MEDS: Pantoprazole 40mg/100ml IVPB 40 MG/100 ML BAG IVPB SCH ×4 (10:20→23:41)
--- NOTE | 2017-05-04 10:27 | PN ---
DATE: 05/04/2017 SUBJECTIVE: The patient is seen and examined at bedside. He is comfortable. He talks full sentences. He is not in respiratory or otherwise distress. However, he is little bit anxious. He just had a bout of bloody diarrhea and his belly hurts a little bit even though mildly. PHYSICAL EXAMINATION: VITAL SIGNS: Temperature 98.4, heart rate 86, blood pressure 126/58, and oxygen saturation 92% on room air. EARS, NOSE, THROAT, HEAD, AND NECK: Atraumatic. LUNGS: Few rhonchi bilaterally. HEART: Regular rate and rhythm. S1 and S2 distant. ABDOMEN: Soft. No peritoneal signs; however, there is substantial tenderness in right upper gastrium and mesogastrium as well. MUSCULOSKELETAL: No C/C/E. NEUROLOGIC: The patient moves all extremities spontaneously. SKIN: Color is moist. PSYCHIATRIC: The patient is alert and oriented x3. Slightly anxious. LABORATORY DATA: WBC 10.1, hemoglobin 7.9 down from 9.6 over 6 hours and platelet count 265. Sodium 133, potassium 3.4, chloride 103, carbon dioxide 21, BUN 56, creatinine 1, glucose 101, AST 26, and ALT 33. Troponin and lactic acid is pending. MEDICATIONS: Lipitor, hydralazine p.r.n., lisinopril, metoprolol, nitroglycerin, ceftriaxone, and normal saline 50 mL per hour. ASSESSMENT AND PLAN: This is a 77-year-old gentleman who was discharged from ICU few days ago where he was initially admitted with hyponatremia and hypokalemia, which were mostly corrected. ICU consult now was called for apparent upper gastrointestinal bleed (drop in hemoglobin, melena, abdominal tenderness). At present time, we will proceed with n.p.o. IV fluids, serial CBC, and Protonix drip. The patient does not have a history of liver disease and his synthetic function does not appear to be affected, thus my suspicion for variceal bleed is low and I will forgo octreotide drip at the present time. We will maintain hemoglobin above 10 in the setting of recent acute coronary syndrome. We will hold therapeutic anticoagulation and Plavix. I will also proceed with CAT scan of the abdomen and pelvis to rule out component of extraluminal etiology to current hemorrhage. I would continue to target euvolemia euglycemia, normothermia, and oxygen saturation of more than 90%. I would continue with deep venous thrombosis (mechanical) and gastrointestinal prophylaxis. Gastrointestinal consult for consideration of upper and lower endoscopy will be aggressive. Addendum: CT abdo: free air-->IVF, abx, surgery consult for exlap ccm time 40 min Giovanni Huang MD MTDD
[2017-05-04] MEDS: cefTRIAXone 1 gm 1 GM/100 ML BAG IVPB SCH (10:36)
[2017-05-04] MEDS: Sodium Chloride 0.9% 1,000 ML IV SCH ×2 (10:40→20:22)
--- NOTE | 2017-05-04 11:43 | CP.PCM.CON ---
<Ana Freeman - Last Filed: 05/04/17 11:42> History of Present Illness - History of Present Illness History of Present Illness: Seen and examined at bedside earlier this am, chart reviewed. Request for GI consult is for GI bleed/Anemia HPI: This is a 77 year old male with a past medical history for COPD, frequent falls, weight loss came to the emergency room for evaluation status post fall. The patient denied any loss of consciousness, or head trauma on admission the patient was found to be hyponatremic, the patient was noted complaining of unintentional weight loss on admission had a CAT scan of the chest which showed no evidence of lung mass but vertebral fracture of T8 and multiple left-sided rib fractures and moderate size of left pleural effusion. The patient was found to have dark stools for the past 2 days patient's hemoglobin had been dropping. The patient denies any nausea or vomiting. He does complain of abdominal discomfort mostly to the right side and suprapubic area. The patient is also found positive troponins on admission and was on aspirin and Lovenox and Plavix which have been discontinued, the last dose of Lovenox was last night. The patient reports having a colonoscopy over 5 years ago he had a hyperplastic polyp. That wound was done by Dr. Bonilla. He denies ever having endoscopy, denies symptoms of heartburn or history of ulcers. Past medical history COPD, actively smoking, weight loss, colon polyps Surgical history: He had bilateral knee surgery Family history noncontributory at this time Allergies: No known drug allergies Social history: Patient used to drink alcohol, last intake of alcohol was reportedly 2 months ago, denies substance abuse, patient is a current smoker Medications: Reviewed as per MAR ROS:systems reviewed w/ is positive finding see HPI Past Patient History - Past Social History Smoking Status: Heavy Smoker > 10 Cigarettes Daily - CARDIAC Hx Cardiac Disorders: No - PULMONARY Hx Chronic Obstructive Pulmonary Disease (COPD): Yes - NEUROLOGICAL Hx Neurological Disorder: No - HEENT Hx HEENT Problems: Yes (glasses) - RENAL Hx Chronic Kidney Disease: No - ENDOCRINE/METABOLIC Hx Endocrine Disorders: No - HEMATOLOGICAL/ONCOLOGICAL Hx Blood Disorders: No - INTEGUMENTARY Hx Dermatological Problems: Yes Hx Psoriasis: Yes Other/Comment: large scratch left abd, rle multiple scabs, dry skin to scalp, eliud 1.5cm x 1.5cm round purple growth, abrasion and skin discoloratin l elbow, lle dry red scabs x 2 - MUSCULOSKELETAL/RHEUMATOLOGICAL Hx Arthritis: Yes (hands fingers) - GASTROINTESTINAL Hx Gastrointestinal Disorders: No - GENITOURINARY/GYNECOLOGICAL Hx Genitourinary Disorders: No - PSYCHIATRIC Hx Substance Use: No (denies) - SURGICAL HISTORY Hx Musculoskeletal Surgery: Yes - ANESTHESIA Hx Anesthesia: No Meds Allergies/Adverse Reactions: Allergies Allergy/AdvReac Type Severity Reaction Status Date / Time No Known Allergies Allergy Verified 04/30/17 12:28 - Medications Medications: Current Medications Amlodipine Besylate (Norvasc) 10 mg PO DAILY [facility] Last Admin: 05/03/17 10:25 Dose: Not Given Atorvastatin Calcium (Lipitor) 40 mg PO DIN [facility] Last Admin: 05/03/17 18:07 Dose: 40 mg Hydralazine HCl (Apresoline) 10 mg IVP Q6 PRN PRN Reason: SBP> 160 Last Admin: 05/01/17 02:56 Dose: 10 mg Ceftriaxone Sodium (Rocephin 1 Gram Ivpb) 1 gm in 100 mls @ 100 mls/hr IVPB DAILY [facility] PRN Reason: Protocol Last Admin: 05/04/17 10:36 Dose: 100 mls/hr Sodium Chloride (Sodium Chloride 0.9%) 1,000 mls @ 50 mls/hr IV .Q20H [facility] Stop: 05/04/17 23:59 Last Admin: 05/03/17 17:54 Dose: Not Given Pantoprazole Sodium (Protonix 40mg Ivpb) 40 mg in 100 mls @ 20 mls/hr IVPB .Q5H [facility] Last Admin: 05/04/17 10:20 Dose: 20 mls/hr Lisinopril (Zestril) 10 mg PO DAILY [facility] Last Admin: 05/04/17 10:36 Dose: 10 mg Metoprolol Tartrate (Lopressor) 25 mg PO BID [facility] Last Admin: 05/04/17 10:35 Dose: 25 mg Nitroglycerin (Nitro-Bid 2% Oint) 1 ea TOP 0000,0600,1200,1800 [facility] Last Admin: 05/04/17 06:24 Dose: 1 ea Physical Exam - Constitutional Appears: No Acute Distress - Head Exam Head Exam: NORMOCEPHALIC - Eye Exam Eye Exam: Normal appearance. absent: Scleral icterus - ENT Exam ENT Exam: Mucous Membranes Dry - Neck Exam Neck exam: Positive for: Normal Inspection - Respiratory Exam Respiratory Exam: Rhonchi, Wheezes, NORMAL BREATHING PATTERN. absent: Respiratory Distress - Cardiovascular Exam Cardiovascular Exam: +S1, +S2 - GI/Abdominal Exam GI & Abdominal Exam: Distended, Normal Bowel Sounds, Soft, Tenderness (right quaderant/suprapubic). absent: Guarding, Rebound - Extremities Exam Extremities exam: Positive for: pedal edema, pedal pulses present. Negative for : calf tenderness - Neurological Exam Neurological exam: Alert, Oriented x3 - Skin Skin Exam: Dry, Warm Results - Vital Signs Recent Vital Signs: Last Vital Signs Temp 97.7 F 05/04/17 10:45 Pulse 98 H 05/04/17 10:45 Resp 30 H 05/04/17 10:45 BP 141/62 05/04/17 10:45 Pulse Ox 99 05/04/17 10:31 - Labs Result Diagrams: 05/04/17 08:45 05/04/17 07:50 Labs: Laboratory Results - last 24 hr 05/03/17 05/03/17 05/03/17 08:08 08:08 22:12 WBC RBC Hgb Hct MCV MCH MCHC RDW Plt Count MPV Gran % Lymph % (Auto) Sully % (Auto) Eos % (Auto) Baso % (Auto) Gran # Lymph # Sully # Eos # Baso # Sodium Potassium Chloride Carbon Dioxide Anion Gap BUN Creatinine Est GFR ( Amer) Est GFR (Non-Af Amer) POC Glucose (mg/dL) 156 H Random Glucose Lactic Acid Calcium Phosphorus Magnesium Total Bilirubin AST ALT Alkaline Phosphatase Troponin I Total Protein Albumin Globulin Albumin/Globulin Ratio Urine Osmolality 589 Ur Random Sodium < 5 Stool Occult Blood Blood Type Blood Type Confirm Antibody Screen Crossmatch BBK History Checked 05/04/17 05/04/17 05/04/17 01:35 01:35 02:00 WBC 12.7 H RBC 2.77 L Hgb 9.6 L Hct 26.5 L MCV 95.7 MCH 34.7 MCHC 36.2 RDW 13.2 Plt Count 274 MPV 8.6 Gran % 86.2 H Lymph % (Auto) 6.4 L Sully % (Auto) 7.3 H Eos % (Auto) 0.0 L Baso % (Auto) 0.1 Gran # 10.97 H Lymph # 0.8 L Sully # 0.9 H Eos # 0.0 Baso # 0.01 Sodium Potassium Chloride Carbon Dioxide Anion Gap BUN Creatinine Est GFR ( Amer) Est GFR (Non-Af Amer) POC Glucose (mg/dL) Random Glucose Lactic Acid Calcium Phosphorus Magnesium Total Bilirubin AST ALT Alkaline Phosphatase Troponin I Total Protein Albumin Globulin Albumin/Globulin Ratio Urine Osmolality Ur Random Sodium Stool Occult Blood Positive H Blood Type A POSITIVE Blood Type Confirm Antibody Screen Negative Crossmatch BBK History Checked No verified bt 05/04/17 05/04/17 05/04/17 02:10 07:50 07:50 WBC 10.1 D RBC 2.31 L Hgb 7.9 L Hct 22.2 L MCV 96.1 MCH 34.2 MCHC 35.6 RDW 13.2 Plt Count 265 MPV 8.9 Gran % 83.9 H Lymph % (Auto) 7.6 L Sully % (Auto) 8.4 H Eos % (Auto) 0.0 L Baso % (Auto) 0.1 Gran # 8.49 H Lymph # 0.8 L Sully # 0.9 H Eos # 0.0 Baso # 0.01 Sodium 133 Potassium 3.4 L Chloride 103 Carbon Dioxide 21 Anion Gap 12 BUN 56 H Creatinine 1.0 Est GFR ( Amer) > 60 Est GFR (Non-Af Amer) > 60 POC Glucose (mg/dL) Random Glucose 101 Lactic Acid Calcium 7.8 L Phosphorus 2.7 Magnesium 1.7 Total Bilirubin 0.5 AST 26 ALT 33 Alkaline Phosphatase 39 Troponin I Total Protein 4.8 L Albumin 2.4 L Globulin 2.4 Albumin/Globulin Ratio 1.0 L Urine Osmolality Ur Random Sodium Stool Occult Blood Blood Type Blood Type Confirm A POSITIVE Antibody Screen Crossmatch BBK History Checked 05/04/17 05/04/17 05/04/17 07:50 08:45 08:45 WBC 11.6 H RBC 2.28 L Hgb 7.9 L Hct 21.9 L MCV 96.1 MCH 34.6 MCHC 36.1 RDW 13.1 Plt Count 266 MPV 8.8 Gran % Lymph % (Auto) Sully % (Auto) Eos % (Auto) Baso % (Auto) Gran # Lymph # Sully # Eos # Baso # Sodium Potassium Chloride Carbon Dioxide Anion Gap BUN Creatinine Est GFR ( Amer) Est GFR (Non-Af Amer) POC Glucose (mg/dL) Random Glucose Lactic Acid 1.9 Calcium Phosphorus Magnesium Total Bilirubin AST ALT Alkaline Phosphatase Troponin I 0.12 D Total Protein Albumin Globulin Albumin/Globulin Ratio Urine Osmolality Ur Random Sodium Stool Occult Blood Blood Type Blood Type Confirm Antibody Screen Crossmatch BBK History Checked 05/04/17 08:45 WBC RBC Hgb Hct MCV MCH MCHC RDW Plt Count MPV Gran % Lymph % (Auto) Sully % (Auto) Eos % (Auto) Baso % (Auto) Gran # Lymph # Sully # Eos # Baso # Sodium Potassium Chloride Carbon Dioxide Anion Gap BUN Creatinine Est GFR ( Amer) Est GFR (Non-Af Amer) POC Glucose (mg/dL) Random Glucose Lactic Acid Calcium Phosphorus Magnesium Total Bilirubin AST ALT Alkaline Phosphatase Troponin I Total Protein Albumin Globulin Albumin/Globulin Ratio Urine Osmolality Ur Random Sodium Stool Occult Blood Blood Type A POSITIVE Blood Type Confirm Antibody Screen Negative Crossmatch See Detail BBK History Checked Patient has bt Assessment & Plan - Assessment and Plan (Free Text) Assessment: Assessment: GI bleed, differential to consider, intrabdominal hemorrage, s/p fall;varices, h /o chronic alcohol use, PUD Anemia Status post fall Hyponatremia NSTEMI COPD H/O Colon polyps PLAN: stat ct scan abdomen and pelvis, no contrast NPo, continiue IVF anticoagulant currently on hold SCD to lower extremities Protonic strip CBC every 6 hours Bladder scan Transfuse as necessary, monitor GIB EGD when optimal, spoke to ICU team Thank you for this consult and follow his to participate in your patient's care , further recommendations based upon clinical course. Seen and discussed with Dr. Lemus. <Matthew Lemus V - Last Filed: 05/04/17 18:44> Meds - Medications Medications: Current Medications Amlodipine Besylate (Norvasc) 10 mg PO DAILY [facility] Last Admin: 05/03/17 10:25 Dose: Not Given Atorvastatin Calcium (Lipitor) 40 mg PO DIN [facility] Last Admin: 05/04/17 18:11 Dose: Not Given Haloperidol Lactate (Haldol) 2 mg IVP Q6H PRN; Protocol PRN Reason: Agitation Hydralazine HCl (Apresoline) 10 mg IVP Q6 PRN PRN Reason: SBP> 160 Last Admin: 05/04/17 17:42 Dose: 10 mg Pantoprazole Sodium (Protonix 40mg Ivpb) 40 mg in 100 mls @ 20 mls/hr IVPB .Q5H [facility] Last Admin: 05/04/17 18:18 Dose: 20 mls/hr Cefepime HCl (Maxipime 1gm) 1 gm in 100 mls @ 100 mls/hr IVPB Q8 [facility] PRN Reason: Protocol Last Admin: 05/04/17 14:10 Dose: 100 mls/hr Metronidazole (Flagyl) 500 mg in 100 mls @ 100 mls/hr IVPB Q8 [facility] PRN Reason: Protocol Last Admin: 05/04/17 18:10 Dose: 100 mls/hr Propofol (Diprivan) 1,000 mg in 100 mls @ 2.425 mls/hr IV .Q24H PRN; Protocol; 5 MCG/KG/MIN PRN Reason: TITRATE PER MD ORDER Sodium Chloride (Sodium Chloride 0.9%) 1,000 mls @ 999 mls/hr IV .Q1H1M STA Stop: 05/04/17 19:25 Sodium Chloride (Sodium Chloride 0.9%) 1,000 mls @ 100 mls/hr IV .Q10H [facility] Lisinopril (Zestril) 10 mg PO DAILY [facility] Last Admin: 05/04/17 10:36 Dose: 10 mg Metoprolol Tartrate (Lopressor) 25 mg PO BID [facility] Last Admin: 05/04/17 18:11 Dose: Not Given Metoprolol Tartrate (Lopressor) 5 mg IVP Q8H PRN PRN Reason: Systolic Blood Pressure Nitroglycerin (Nitro-Bid 2% Oint) 1 ea TOP 0000,0600,1200,1800 [facility] Last Admin: 05/04/17 17:44 Dose: 1 ea Results - Vital Signs Recent Vital Signs: Last Vital Signs Temp 98.1 F 05/04/17 14:33 Pulse 102 H 05/04/17 17:45 Resp 21 05/04/17 17:45 BP 167/58 H 05/04/17 17:45 Pulse Ox 100 05/04/17 17:45 - Labs Result Diagrams: 05/04/17 08:45 05/04/17 07:50 Labs: Laboratory Results - last 24 hr 05/03/17 05/03/17 05/04/17 08:08 22:12 01:35 WBC 12.7 H RBC 2.77 L Hgb 9.6 L Hct 26.5 L MCV 95.7 MCH 34.7 MCHC 36.2 RDW 13.2 Plt Count 274 MPV 8.6 Gran % 86.2 H Lymph % (Auto) 6.4 L Sully % (Auto) 7.3 H Eos % (Auto) 0.0 L Baso % (Auto) 0.1 Gran # 10.97 H Lymph # 0.8 L Sully # 0.9 H Eos # 0.0 Baso # 0.01 pCO2 pO2 HCO3 ABG pH ABG Total CO2 ABG O2 Saturation ABG O2 Content ABG Base Excess ABG Hemoglobin ABG Carboxyhemoglobin POC ABG HHb (Measured) ABG Methemoglobin ABG O2 Capacity Hgb O2 Saturation FiO2 Sodium Potassium Chloride Carbon Dioxide Anion Gap BUN Creatinine Est GFR ( Amer) Est GFR (Non-Af Amer) POC Glucose (mg/dL) 156 H Random Glucose Lactic Acid Calcium Phosphorus Magnesium Total Bilirubin AST ALT Alkaline Phosphatase Troponin I Total Protein Albumin Globulin Albumin/Globulin Ratio Ur Random Sodium < 5 Stool Occult Blood Blood Type Blood Type Confirm Antibody Screen Crossmatch BBK History Checked 05/04/17 05/04/17 05/04/17 01:35 02:00 02:10 WBC RBC Hgb Hct MCV MCH MCHC RDW Plt Count MPV Gran % Lymph % (Auto) Sully % (Auto) Eos % (Auto) Baso % (Auto) Gran # Lymph # Sully # Eos # Baso # pCO2 pO2 HCO3 ABG pH ABG Total CO2 ABG O2 Saturation ABG O2 Content ABG Base Excess ABG Hemoglobin ABG Carboxyhemoglobin POC ABG HHb (Measured) ABG Methemoglobin ABG O2 Capacity Hgb O2 Saturation FiO2 Sodium Potassium Chloride Carbon Dioxide Anion Gap BUN Creatinine Est GFR ( Amer) Est GFR (Non-Af Amer) POC Glucose (mg/dL) Random Glucose Lactic Acid Calcium Phosphorus Magnesium Total Bilirubin AST ALT Alkaline Phosphatase Troponin I Total Protein Albumin Globulin Albumin/Globulin Ratio Ur Random Sodium Stool Occult Blood Positive H Blood Type A POSITIVE Blood Type Confirm A POSITIVE Antibody Screen Negative Crossmatch BBK History Checked No verified bt 05/04/17 05/04/17 05/04/17 07:50 07:50 07:50 WBC 10.1 D RBC 2.31 L Hgb 7.9 L Hct 22.2 L MCV 96.1 MCH 34.2 MCHC 35.6 RDW 13.2 Plt Count 265 MPV 8.9 Gran % 83.9 H Lymph % (Auto) 7.6 L Sully % (Auto) 8.4 H Eos % (Auto) 0.0 L Baso % (Auto) 0.1 Gran # 8.49 H Lymph # 0.8 L Sully # 0.9 H Eos # 0.0 Baso # 0.01 pCO2 pO2 HCO3 ABG pH ABG Total CO2 ABG O2 Saturation ABG O2 Content ABG Base Excess ABG Hemoglobin ABG Carboxyhemoglobin POC ABG HHb (Measured) ABG Methemoglobin ABG O2 Capacity Hgb O2 Saturation FiO2 Sodium 133 Potassium 3.4 L Chloride 103 Carbon Dioxide 21 Anion Gap 12 BUN 56 H Creatinine 1.0 Est GFR ( Amer) > 60 Est GFR (Non-Af Amer) > 60 POC Glucose (mg/dL) Random Glucose 101 Lactic Acid Calcium 7.8 L Phosphorus 2.7 Magnesium 1.7 Total Bilirubin 0.5 AST 26 ALT 33 Alkaline Phosphatase 39 Troponin I 0.12 D Total Protein 4.8 L Albumin 2.4 L Globulin 2.4 Albumin/Globulin Ratio 1.0 L Ur Random Sodium Stool Occult Blood Blood Type Blood Type Confirm Antibody Screen Crossmatch BBK History Checked 05/04/17 05/04/17 05/04/17 08:45 08:45 08:45 WBC 11.6 H RBC 2.28 L Hgb 7.9 L Hct 21.9 L MCV 96.1 MCH 34.6 MCHC 36.1 RDW 13.1 Plt Count 266 MPV 8.8 Gran % Lymph % (Auto) Sully % (Auto) Eos % (Auto) Baso % (Auto) Gran # Lymph # Sully # Eos # Baso # pCO2 pO2 HCO3 ABG pH ABG Total CO2 ABG O2 Saturation ABG O2 Content ABG Base Excess ABG Hemoglobin ABG Carboxyhemoglobin POC ABG HHb (Measured) ABG Methemoglobin ABG O2 Capacity Hgb O2 Saturation FiO2 Sodium Potassium Chloride Carbon Dioxide Anion Gap BUN Creatinine Est GFR ( Amer) Est GFR (Non-Af Amer) POC Glucose (mg/dL) Random Glucose Lactic Acid 1.9 Calcium Phosphorus Magnesium Total Bilirubin AST ALT Alkaline Phosphatase Troponin I Total Protein Albumin Globulin Albumin/Globulin Ratio Ur Random Sodium Stool Occult Blood Blood Type A POSITIVE Blood Type Confirm Antibody Screen Negative Crossmatch See Detail BBK History Checked Patient has bt 05/04/17 17:25 WBC RBC Hgb Hct MCV MCH MCHC RDW Plt Count MPV Gran % Lymph % (Auto) Sully % (Auto) Eos % (Auto) Baso % (Auto) Gran # Lymph # Sully # Eos # Baso # pCO2 39 pO2 127.0 H HCO3 21.0 ABG pH 7.34 L ABG Total CO2 22.2 ABG O2 Saturation 99.7 H ABG O2 Content 14.2 L ABG Base Excess -4.4 L ABG Hemoglobin 10.3 L ABG Carboxyhemoglobin 2.6 H POC ABG HHb (Measured) 0.3 ABG Methemoglobin 1.1 ABG O2 Capacity 14.2 L Hgb O2 Saturation 96.1 FiO2 60.0 Sodium Potassium Chloride Carbon Dioxide Anion Gap BUN Creatinine Est GFR ( Amer) Est GFR (Non-Af Amer) POC Glucose (mg/dL) Random Glucose Lactic Acid Calcium Phosphorus Magnesium Total Bilirubin AST ALT Alkaline Phosphatase Troponin I Total Protein Albumin Globulin Albumin/Globulin Ratio Ur Random Sodium Stool Occult Blood Blood Type Blood Type Confirm Antibody Screen Crossmatch BBK History Checked Attending/Attestation - Attestation I have personally seen and examined this patient.: Yes I have fully participated in the care of the patient.: Yes I have reviewed all pertinent clinical information: Yes Notes (Text): This is an addendum to GI consult report dictated by Ana Freeman APN.The patient was seen and examined earlier. Medical records, lab studies, imagings were reviewed. Last 24 hours events reviewed. Agreed with the above treatment plan as outlined in Ana Freeman APN's notes the with the addition of the following Patient was initially evaluated in a.m. follow her diffuse abdominal tenderness the CT scan was ordered which was reviewed had a free air. Patient went to OR later. I have discussed with the Dr. Mccrary for gastric ulcer perforation. Repair done. History of GI bleeding Non-ST segment ID was on aspirin and Plavix and also on Lovenox before Follow up of the hemoglobin and hematocrit As per ICU and surgery Discussed with the PCP earlier 05/04/17 18:42
--- NOTE | 2017-05-04 12:50 | RAD ---
HISTORY: sob COMPARISON: 04/30/2017 FINDINGS: LUNGS: No active pulmonary disease. PLEURA: No significant pleural effusion identified, no pneumothorax apparent. CARDIOVASCULAR: Normal. OSSEOUS STRUCTURES: No significant abnormalities. VISUALIZED UPPER ABDOMEN: Findings strongly suspicious for free intraperitoneal air. OTHER FINDINGS: None. IMPRESSION: Suspect free intraperitoneal air. Findings were discussed with the CCU resident, Dr. Mann Allen, by telephone at 12:45 p.m. on 05/04/2017.
--- NOTE | 2017-05-04 13:09 | CP.PCM.CON ---
History of Present Illness - History of Present Illness History of Present Illness: General Surgery Consult Note for Dr. Mccrary Reason for Consult: Free air under diaphragm 77 M with PMH of COPD, frequent falls, unintentional weight loss presented to [facility] [place] on 04/30 for s/p fall. Patient denied trauma or LOC. Patient was admitted for hyponatremia and NSTEMI. His hemoglobin had been decreasing and it was attributed to GI bleed. Surgery was consulted on 05/04 for free air present on CXR. CT scan was then completed and showed a large amount of free air. Patient complaining of abdominal pain. He rates the pain as moderate. He describes the pain as constant aching located diffusely throughout abdomen but is worse on right side. Denies any alleviating or exacerbating factors. Denies fever/chills , cp, sob, n/v/d, constipation, hematemesis, hematochezia, incontinence. PMH: COPD, unintentional weight loss, colon polyps Meds: As per EMR Allergy: NKDA PSH: bilateral knee surgery Hosp: Denies FH: Unknown Social: as per patient, has not drank alcohol for 2 months, current smoker, denies illicit drug use Review of Systems - Review of Systems All systems: reviewed and no additional remarkable complaints except (abdominal pain) Past Patient History - Past Social History Smoking Status: Heavy Smoker > 10 Cigarettes Daily - CARDIAC Hx Cardiac Disorders: No - PULMONARY Hx Chronic Obstructive Pulmonary Disease (COPD): Yes - NEUROLOGICAL Hx Neurological Disorder: No - HEENT Hx HEENT Problems: Yes (glasses) - RENAL Hx Chronic Kidney Disease: No - ENDOCRINE/METABOLIC Hx Endocrine Disorders: No - HEMATOLOGICAL/ONCOLOGICAL Hx Blood Disorders: No - INTEGUMENTARY Hx Dermatological Problems: Yes Hx Psoriasis: Yes Other/Comment: large scratch left abd, rle multiple scabs, dry skin to scalp, eliud 1.5cm x 1.5cm round purple growth, abrasion and skin discoloratin l elbow, lle dry red scabs x 2 - MUSCULOSKELETAL/RHEUMATOLOGICAL Hx Arthritis: Yes (hands fingers) - GASTROINTESTINAL Hx Gastrointestinal Disorders: No - GENITOURINARY/GYNECOLOGICAL Hx Genitourinary Disorders: No - PSYCHIATRIC Hx Substance Use: No (denies) - SURGICAL HISTORY Hx Musculoskeletal Surgery: Yes - ANESTHESIA Hx Anesthesia: No Meds Allergies/Adverse Reactions: Allergies Allergy/AdvReac Type Severity Reaction Status Date / Time No Known Allergies Allergy Verified 04/30/17 12:28 - Medications Medications: Current Medications Amlodipine Besylate (Norvasc) 10 mg PO DAILY [facility] Last Admin: 05/03/17 10:25 Dose: Not Given Atorvastatin Calcium (Lipitor) 40 mg PO DIN [facility] Last Admin: 05/03/17 18:07 Dose: 40 mg Hydralazine HCl (Apresoline) 10 mg IVP Q6 PRN PRN Reason: SBP> 160 Last Admin: 05/01/17 02:56 Dose: 10 mg Ceftriaxone Sodium (Rocephin 1 Gram Ivpb) 1 gm in 100 mls @ 100 mls/hr IVPB DAILY [facility] PRN Reason: Protocol Last Admin: 05/04/17 10:36 Dose: 100 mls/hr Sodium Chloride (Sodium Chloride 0.9%) 1,000 mls @ 50 mls/hr IV .Q20H [facility] Stop: 05/04/17 23:59 Last Admin: 05/03/17 17:54 Dose: Not Given Pantoprazole Sodium (Protonix 40mg Ivpb) 40 mg in 100 mls @ 20 mls/hr IVPB .Q5H [facility] Last Admin: 05/04/17 10:20 Dose: 20 mls/hr Lisinopril (Zestril) 10 mg PO DAILY [facility] Last Admin: 05/04/17 10:36 Dose: 10 mg Metoprolol Tartrate (Lopressor) 25 mg PO BID [facility] Last Admin: 05/04/17 10:35 Dose: 25 mg Nitroglycerin (Nitro-Bid 2% Oint) 1 ea TOP 0000,0600,1200,1800 [facility] Last Admin: 05/04/17 06:24 Dose: 1 ea Physical Exam - Constitutional Appears: No Acute Distress - Head Exam Head Exam: ATRAUMATIC, NORMOCEPHALIC - Eye Exam Eye Exam: Normal appearance - ENT Exam ENT Exam: Mucous Membranes Moist - Respiratory Exam Respiratory Exam: Wheezes, NORMAL BREATHING PATTERN - Cardiovascular Exam Cardiovascular Exam: REGULAR RHYTHM - GI/Abdominal Exam GI & Abdominal Exam: Distended, Firm, Guarding, Normal Bowel Sounds, Tenderness (diffuse). absent: Rebound - Extremities Exam Extremities exam: Positive for: normal capillary refill, pedal pulses present. Negative for: calf tenderness - Neurological Exam Neurological exam: Alert - Psychiatric Exam Psychiatric exam: Normal Affect, Normal Mood - Skin Skin Exam: Dry, Intact, Warm Results - Vital Signs Recent Vital Signs: Last Vital Signs Temp 97.7 F 05/04/17 11:00 Pulse 92 H 05/04/17 11:00 Resp 22 05/04/17 11:00 BP 142/112 H 05/04/17 11:00 Pulse Ox 95 05/04/17 11:00 - Labs Result Diagrams: 05/04/17 08:45 05/04/17 07:50 Labs: Laboratory Results - last 24 hr 05/03/17 05/03/17 05/04/17 08:08 22:12 01:35 WBC 12.7 H RBC 2.77 L Hgb 9.6 L Hct 26.5 L MCV 95.7 MCH 34.7 MCHC 36.2 RDW 13.2 Plt Count 274 MPV 8.6 Gran % 86.2 H Lymph % (Auto) 6.4 L Perkins % (Auto) 7.3 H Eos % (Auto) 0.0 L Baso % (Auto) 0.1 Gran # 10.97 H Lymph # 0.8 L Perkins # 0.9 H Eos # 0.0 Baso # 0.01 Sodium Potassium Chloride Carbon Dioxide Anion Gap BUN Creatinine Est GFR ( Amer) Est GFR (Non-Af Amer) POC Glucose (mg/dL) 156 H Random Glucose Lactic Acid Calcium Phosphorus Magnesium Total Bilirubin AST ALT Alkaline Phosphatase Troponin I Total Protein Albumin Globulin Albumin/Globulin Ratio Ur Random Sodium < 5 Stool Occult Blood Blood Type Blood Type Confirm Antibody Screen Crossmatch BBK History Checked 05/04/17 05/04/17 05/04/17 01:35 02:00 02:10 WBC RBC Hgb Hct MCV MCH MCHC RDW Plt Count MPV Gran % Lymph % (Auto) Perkins % (Auto) Eos % (Auto) Baso % (Auto) Gran # Lymph # Perkins # Eos # Baso # Sodium Potassium Chloride Carbon Dioxide Anion Gap BUN Creatinine Est GFR ( Amer) Est GFR (Non-Af Amer) POC Glucose (mg/dL) Random Glucose Lactic Acid Calcium Phosphorus Magnesium Total Bilirubin AST ALT Alkaline Phosphatase Troponin I Total Protein Albumin Globulin Albumin/Globulin Ratio Ur Random Sodium Stool Occult Blood Positive H Blood Type A POSITIVE Blood Type Confirm A POSITIVE Antibody Screen Negative Crossmatch BBK History Checked No verified bt 10/16/17 10/16/17 10/16/17 07:50 07:50 07:50 WBC 10.1 D RBC 2.31 L Hgb 7.9 L Hct 22.2 L MCV 96.1 MCH 34.2 MCHC 35.6 RDW 13.2 Plt Count 265 MPV 8.9 Gran % 83.9 H Lymph % (Auto) 7.6 L Perkins % (Auto) 8.4 H Eos % (Auto) 0.0 L Baso % (Auto) 0.1 Gran # 8.49 H Lymph # 0.8 L Perkins # 0.9 H Eos # 0.0 Baso # 0.01 Sodium 133 Potassium 3.4 L Chloride 103 Carbon Dioxide 21 Anion Gap 12 BUN 56 H Creatinine 1.0 Est GFR ( Amer) > 60 Est GFR (Non-Af Amer) > 60 POC Glucose (mg/dL) Random Glucose 101 Lactic Acid Calcium 7.8 L Phosphorus 2.7 Magnesium 1.7 Total Bilirubin 0.5 AST 26 ALT 33 Alkaline Phosphatase 39 Troponin I 0.12 D Total Protein 4.8 L Albumin 2.4 L Globulin 2.4 Albumin/Globulin Ratio 1.0 L Ur Random Sodium Stool Occult Blood Blood Type Blood Type Confirm Antibody Screen Crossmatch BBK History Checked 05/04/17 05/04/17 05/04/17 08:45 08:45 08:45 WBC 11.6 H RBC 2.28 L Hgb 7.9 L Hct 21.9 L MCV 96.1 MCH 34.6 MCHC 36.1 RDW 13.1 Plt Count 266 MPV 8.8 Gran % Lymph % (Auto) Perkins % (Auto) Eos % (Auto) Baso % (Auto) Gran # Lymph # Perkins # Eos # Baso # Sodium Potassium Chloride Carbon Dioxide Anion Gap BUN Creatinine Est GFR ( Amer) Est GFR (Non-Af Amer) POC Glucose (mg/dL) Random Glucose Lactic Acid 1.9 Calcium Phosphorus Magnesium Total Bilirubin AST ALT Alkaline Phosphatase Troponin I Total Protein Albumin Globulin Albumin/Globulin Ratio Ur Random Sodium Stool Occult Blood Blood Type A POSITIVE Blood Type Confirm Antibody Screen Negative Crossmatch See Detail BBK History Checked Patient has bt Assessment & Plan - Assessment and Plan (Free Text) Plan: 77 M with free air under diaphragm visualized on CXR and Ct scan -OR immediately for Exploratory laparotomy -Continue blood transfusions, 2 more unints PRBC on hold for OR -managment as Per ICU -DW Dr. Hermann Marin PGY1
--- NOTE | 2017-05-04 13:28 | CP.PCM.PN ---
<Lily Bennett - Last Filed: 05/04/17 13:44> Subjective - Date & Time of Evaluation Date of Evaluation: 05/04/17 Time of Evaluation: 13:24 - Subjective Subjective: PGY-[address] Bowser Patient seen and examined at bedside in ICU. Patient appears uncomfortable. Patient reports hypogastric abd pain. He reports occasional sob. He denies chest pain, fever, chills, dysuria. Objective - Vital Signs/Intake and Output Vital Signs (last 24 hours): Temp Pulse Resp BP Pulse Ox 97.7 F 92 H 22 142/112 H 95 05/04/17 11:00 05/04/17 11:00 05/04/17 11:00 05/04/17 11:00 05/04/17 11:00 Intake and Output: 05/04/17 05/04/17 06:59 18:59 Intake Total 0 0 Balance 0 0 - Medications Medications: Current Medications Amlodipine Besylate (Norvasc) 10 mg PO DAILY [facility] Last Admin: 05/03/17 10:25 Dose: Not Given Atorvastatin Calcium (Lipitor) 40 mg PO DIN [facility] Last Admin: 05/03/17 18:07 Dose: 40 mg Hydralazine HCl (Apresoline) 10 mg IVP Q6 PRN PRN Reason: SBP> 160 Last Admin: 05/01/17 02:56 Dose: 10 mg Ceftriaxone Sodium (Rocephin 1 Gram Ivpb) 1 gm in 100 mls @ 100 mls/hr IVPB DAILY [facility] PRN Reason: Protocol Last Admin: 05/04/17 10:36 Dose: 100 mls/hr Sodium Chloride (Sodium Chloride 0.9%) 1,000 mls @ 50 mls/hr IV .Q20H [facility] Stop: 05/04/17 23:59 Last Admin: 05/03/17 17:54 Dose: Not Given Pantoprazole Sodium (Protonix 40mg Ivpb) 40 mg in 100 mls @ 20 mls/hr IVPB .Q5H [facility] Last Admin: 05/04/17 10:20 Dose: 20 mls/hr Lisinopril (Zestril) 10 mg PO DAILY [facility] Last Admin: 05/04/17 10:36 Dose: 10 mg Metoprolol Tartrate (Lopressor) 25 mg PO BID [facility] Last Admin: 05/04/17 10:35 Dose: 25 mg Nitroglycerin (Nitro-Bid 2% Oint) 1 ea TOP 0000,0600,1200,1800 [facility] Last Admin: 05/04/17 06:24 Dose: 1 ea - Labs Labs: 05/04/17 08:45 05/04/17 07:50 PT 11.2 Seconds (9.9-11.8) 04/30/17 12:40 INR 1.04 (0.93-1.08) 04/30/17 12:40 APTT 26.8 Seconds (23.7-30.8) 04/30/17 12:40 - Constitutional Appears: In Acute Distress - Head Exam Head Exam: ATRAUMATIC, NORMAL INSPECTION, NORMOCEPHALIC - Eye Exam Eye Exam: EOMI, Normal appearance - ENT Exam ENT Exam: Mucous Membranes Moist - Respiratory Exam Respiratory Exam: Wheezes, NORMAL BREATHING PATTERN. absent: Rales, Rhonchi, Respiratory Distress - Cardiovascular Exam Cardiovascular Exam: REGULAR RHYTHM, +S1, +S2. absent: Tachycardia, Murmur - GI/Abdominal Exam GI & Abdominal Exam: Firm, Tenderness (hypogastric), Normal Bowel Sounds. absent: Distended, Rigid - Extremities Exam Extremities Exam: Normal Inspection. absent: Pedal Edema, Tenderness - Neurological Exam Neurological Exam: Alert, Awake, Oriented x3 - Skin Skin Exam: Dry, Intact, Normal Color, Warm Assessment and Plan - Assessment and Plan (Free Text) Assessment: 77 yo male with no significant PMH initially presented with hyponatremia, hypokalemia, NSTEMI, s/p fall. Patient's had drop in Hgb with melena most likely secondary to GI bleed. Plan: 1. GI bleed - Hgb fell to 7.9 - positive stool occult - transfusion of 2 unit pRBC - CT abd/ pel without PO/IV contrast order - protonix drip - NPO - bladder scan ordered - GI following 2. NSTEMI - trop downtrending - Echo on 05/01 showed mild concentric left ventricular hypertrophy, EF-55%, Mitral regurgitation is mild to moderate, mild tricuspid regurgitation, no pericardial effusion. - patient was scheduled for cath today, however was postponed due to GI bleed - cont topical nitroglycerin - metoprolol, Lipitor - dose of Lovenox given yesterday 3. severe hyponatremia and hypokalemia - improving - most likely hypotonic, hypovolemic hyponatremia - urine osmolaity and Na ordered - cont IVF NS at 50cc/ho 4. s/p fall - CT head showed No intracranial mass, hemorrhage or evidence of acute infarct. - CT chest showed No evidence of lung mass, Vertebral fracture of T8, Multiple left-sided rib fractures with a moderate size left pleural effusion. 5. HTN - controlled - cont metoprolol, lisinpril - hyralazine prn <Jarocho Bowser S - Last Filed: 05/04/17 17:20> Objective - Vital Signs/Intake and Output Vital Signs (last 24 hours): Temp Pulse Resp BP Pulse Ox 98.1 F 86 28 H 144/71 95 05/04/17 14:33 05/04/17 14:33 05/04/17 14:33 05/04/17 14:33 05/04/17 11:00 Intake and Output: 05/04/17 05/04/17 06:59 18:59 Intake Total 0 345 Balance 0 345 - Medications Medications: Current Medications Amlodipine Besylate (Norvasc) 10 mg PO DAILY [facility] Last Admin: 05/03/17 10:25 Dose: Not Given Atorvastatin Calcium (Lipitor) 40 mg PO DIN [facility] Last Admin: 05/03/17 18:07 Dose: 40 mg Hydralazine HCl (Apresoline) 10 mg IVP Q6 PRN PRN Reason: SBP> 160 Last Admin: 05/01/17 02:56 Dose: 10 mg Ceftriaxone Sodium (Rocephin 1 Gram Ivpb) 1 gm in 100 mls @ 100 mls/hr IVPB DAILY [facility] PRN Reason: Protocol Last Admin: 05/04/17 10:36 Dose: 100 mls/hr Sodium Chloride (Sodium Chloride 0.9%) 1,000 mls @ 50 mls/hr IV .Q20H [facility] Stop: 05/04/17 23:59 Last Admin: 05/04/17 10:40 Dose: Not Given Pantoprazole Sodium (Protonix 40mg Ivpb) 40 mg in 100 mls @ 20 mls/hr IVPB .Q5H [facility] Last Admin: 05/04/17 14:21 Dose: 20 mls/hr Sodium Chloride (Sodium Chloride 0.45%) 500 mls @ 999 mls/hr IV .Q31M [facility] Last Admin: 05/04/17 14:22 Dose: Not Given Cefepime HCl (Maxipime 1gm) 1 gm in 100 mls @ 100 mls/hr IVPB Q8 [facility] PRN Reason: Protocol Last Admin: 05/04/17 14:10 Dose: 100 mls/hr Lisinopril (Zestril) 10 mg PO DAILY [facility] Last Admin: 05/04/17 10:36 Dose: 10 mg Metoprolol Tartrate (Lopressor) 25 mg PO BID [facility] Last Admin: 05/04/17 10:35 Dose: 25 mg Nitroglycerin (Nitro-Bid 2% Oint) 1 ea TOP 0000,0600,1200,1800 [facility] Last Admin: 05/04/17 06:24 Dose: 1 ea - Labs Labs: 05/04/17 08:45 05/04/17 07:50 PT 11.2 Seconds (9.9-11.8) 04/30/17 12:40 INR 1.04 (0.93-1.08) 04/30/17 12:40 APTT 26.8 Seconds (23.7-30.8) 04/30/17 12:40 Assessment and Plan - Assessment and Plan (Free Text) Plan: Pt seen and examined. Agree with above note of resident. Meds and labs reviewed. Pt with acute GIB and perforataion. Spoke to Dr Marte and Dr Berry. Will need Surgery evaluation and possible OR. Pt with STEMI. Guarded prognosis. Transfuse PRBC. Consent taken from pt. he understands the need for transfusion. Tried to call next of kin on facesheet but not successful. ICU evaluation done and transferred.
--- NOTE | 2017-05-04 13:30 | CT ---
PROCEDURE: CT Abdomen and Pelvis without intravenous contrast HISTORY: abdominal tenderness COMPARISON: Chest CT 05/01/2017 TECHNIQUE: Without contrast.. Contrast Dose: Radiation dose: Total exam DLP = 564 mGy-cm. This CT exam was performed using one or more of the following dose reduction techniques: Automated exposure control, adjustment of the mA and/or kV according to patient size, and/or use of iterative reconstruction technique. FINDINGS: LOWER THORAX: There is a large amount of intraperitoneal free air consistent with perforation. The location of perforation cannot be determined. This was discussed with Dr. Huang at 1:25 p.m. LIVER: Unremarkable. No gross lesion or ductal dilatation. GALLBLADDER AND BILE DUCTS: Unremarkable. PANCREAS: Unremarkable. No gross lesion or ductal dilatation. SPLEEN: Unremarkable. ADRENALS: Unremarkable. No mass. KIDNEYS AND URETERS: Unremarkable. No hydronephrosis. No solid mass. VASCULATURE: Unremarkable. No aortic aneurysm. BOWEL: Unremarkable. No obstruction. No gross mural thickening. APPENDIX: Unremarkable. Normal appendix. PERITONEUM: Large amount of free air LYMPH NODES: Unremarkable. No enlarged lymph nodes. BLADDER: Unremarkable. REPRODUCTIVE: Unremarkable. BONES: No acute fracture. OTHER FINDINGS: None. IMPRESSION: There is a large amount of intraperitoneal free air consistent with perforation. The location of perforation cannot be determined. This was discussed with Dr. Huang at 1:25 p.m.
--- NOTE | 2017-05-04 13:39 | CT ---
PROCEDURE: CT Chest without contrast HISTORY: FLUID SEEN ON ABD CT COMPARISON: None. TECHNIQUE: Contiguous axial images were obtained through the chest without intravenous contrast enhancement. Sagittal and coronal reconstructions were performed. Radiation dose (DLP): 432 mGy-cm. This CT exam was performed using one or more of the following dose reduction techniques: Automated exposure control, adjustment of the mA and/or kV according to patient size, and/or use of iterative reconstruction technique. FINDINGS: LUNGS: Minimal patchy interstitial infiltrates are seen in the right upper lobe. There is consolidation adjacent to the bilateral pleural effusions of both lung bases. MEDIASTINUM: Unremarkable thoracic aorta. No aneurysm. Normal sized heart. Main pulmonary artery unremarkable. No vascular congestion. No lymphadenopathy. PLEURA: Bilateral pleural effusions left greater than right BONES: No fracture. No destructive lesion. UPPER ABDOMEN: There is a large amount of intraperitoneal free air consistent with perforation. The location of perforation cannot be determined. This was discussed with Dr. Huang at 1:25 p.m. OTHER FINDINGS: None. IMPRESSION: Moderate size pleural effusions left greater than right. Minimal bibasilar consolidation adjacent to effusions. Minimal right upper lobe interstitial infiltrates
[2017-05-04] MEDS ORDERED: Sodium Chloride 0.45% 500 ML IV SCH (13:45)
[2017-05-04] MEDS: Cefepime 1gm in NS 100ml 1 GM/100 ML BAG IVPB SCH ×2 (14:10→21:04)
[2017-05-04] MEDS ORDERED: Propofol 10 mg/ml Inj (20 ML) ONE (14:47)
[2017-05-04] MEDS ORDERED: Midazolam 2 MG/2 ML VIAL ONE (14:49)
[2017-05-04] MEDS ORDERED: Etomidate 20 mg/10ml Inj IV ONE (14:49)
[2017-05-04] MEDS ORDERED: Oxychlorosene Topical 2 gm Packet TOP ONE (15:37)
[2017-05-04] MEDS ORDERED: Bupivacaine 0.5% Inj(30mL) ONE (16:28)
--- NOTE | 2017-05-04 17:21 | PCM.SURG1 ---
Surgeon's Initial Post Op Note - Surgeon's Notes Surgeon: Dr. Mccrary Crabbing Machine Operator: Dr. Cash PGY3; Dr. Sr PGY2; Dr. Marin PGY1; Dr. Leni Schultz Type of Anesthesia: General Endo Pre-Operative Diagnosis: Pneumoperitoneum/Perforated Viscous Operative Findings: Perforated Gastric Ulcer Post-Operative Diagnosis: Perforated Gastric Ulcer Operation Performed: Exploratory laparotomy. Gastric wedge resection Specimen/Specimens Removed: portion of stomach Estimated Blood Loss: EBL {In ML}: 20 Blood Products Given: N/A Drains Used: Abimael Post-Op Condition: Critical Date of Surgery/Procedure: 05/04/17 Time of Surgery/Procedure: 17:23
[2017-05-04 17:32] LABS: ARTERIAL BLOOD GAS O2 CAPACITY 14.2 mL/dl (16-24); ARTERIAL BLOOD GAS O2 CONTENT 14.2 ML/dl (15-23); ARTERIAL BLOOD GAS PH 7.34 (7.35-7.45); ARTERIAL BLOOD HGB O2 SAT 96.1 % (95.0-98.0); CARBOXYHEMOGLOBIN 2.6 % (0.5-1.5); HHB 0.3 % (0-5); METHEMOGLOBIN 1.1 % (0.0-3.0)
[2017-05-04] MEDS: metroNIDAZOLE IV 500 mg/100 ml 500 MG/100 ML BAG IVPB SCH ×2 (18:10→21:05)
[2017-05-04] MEDS ORDERED: Metoprolol 1 mg/ml Inj IVP PRN (18:13)
[2017-05-04] MEDS ORDERED: Propofol 10 mg/ml 1,000 MG/100 ML VIAL IV PRN (18:25)
[2017-05-04] MEDS ORDERED: Sodium Chloride 0.9% 1,000 ML IV STA (18:25)
[2017-05-04] MEDS ORDERED: Propofol 10 mg/ml 1,000 MG/100 ML VIAL ONE (18:27)
[2017-05-04] MEDS ORDERED: NOREPINEPHRINE BIT/0.9 % NACL 4 MG/250 ML BAG IV ONE (18:35)
[2017-05-04] MEDS ORDERED: NOREPINEPHRINE BIT/0.9 % NACL 4 MG/250 ML BAG IV PRN (18:35)
[2017-05-04] MEDS ORDERED: fentaNYL 1,000 MCG in Sodium Chloride 0.9% 80 ML IV SCH (18:45)
[2017-05-04] MEDS ORDERED: Fentanyl 1000mcg/100ml NS 1,000 MCG/100 ML BAG IV SCH (19:00)
[2017-05-04 19:47] LABS: MEAN CELL VOLUME 94.2 fl (80.0-105.0); MEAN CORPUSCULAR HEMOGLOBIN 33.1 pg (25.0-35.0); MEAN CORPUSCULAR HGB CONC 35.2 g/dl (31.0-37.0); MEAN PLATELET VOLUME 9.1 fl (7.0-11.0); RED CELL DISTRIBUTION WIDTH 14.9 % (11.5-14.5); WHITE BLOOD COUNT 11.1 10^3/ul (4.5-11.0)
[2017-05-04 19:54] LABS: ALKALINE PHOSPHATASE 43 U/L (38-126); ALT/SGPT 50 U/L (7-56); AST/SGOT 37 U/L (17-59); BILIRUBIN,TOTAL 1.3 mg/dL (0.2-1.3); BLOOD UREA NITROGEN 54 mg/dL (7-21); CALCIUM 7.6 mg/dL (8.4-10.5); CARBON DIOXIDE 22 mmol/L (21-33); CHLORIDE 106 mmol/L (95-110); GFR AFRICAN-AMERICAN > 60; GLUCOSE,RANDOM 104 mg/dL (70-110); MAGNESIUM 1.5 mg/dL (1.7-2.2); PHOSPHOROUS 4.2 mg/dL (2.5-4.5); POTASSIUM 3.6 mmol/L (3.6-5.0); SODIUM 136 mmol/L (132-148)
[2017-05-04] MEDS ORDERED: Magnesium Sulfate 1 gm in D5W 1 GM/100 ML BAG IVPB ONE (20:28)
[2017-05-04 21:21] LABS: ARTERIAL BLOOD GAS HCO3 17.3 mmol/L (21-28)
[2017-05-04] MEDS: Fentanyl 1000mcg/100ml NS 1,000 MCG/100 ML BAG IV SCH (21:30)
--- NOTE | 2017-05-04 22:15 | PN ---
DATE: 05/04/2017 REASON FOR DICTATION: Followup positive troponin, non-ST segment myocardial infarction, admitted with severe hyponatremia, status post fall, now the patient with severe anemia, GI bleed, black tarry stool. SUBJECTIVE: The patient denies any chest pain, shortness of breath, any palpitation, was complaining of black tarry stool. OBJECTIVE: GENERAL: Not in apparent distress, lying flat in the bed. VITAL SIGNS: Temperature afebrile, heart rate 82, blood pressure 144/75. HEENT: PERRLA intact. NECK: Supple. No carotid bruit or thyromegaly. CHEST: Clear to auscultation. HEART: S1 and S2 regular. ABDOMEN: Soft. EXTREMITIES: Clubbing and cyanosis negative. LABORATORY DATA: Blood workup as follows: WBC 10.1, hemoglobin 7.9, hematocrit 22.2, and platelet count 265. Chemistry shows sodium 133, potassium 3.4, chloride 103, carbon dioxide 21, anion gap of 12, BUN 15, creatinine 1. IMPRESSION: Non-ST segment myocardial infarction, severe anemia, status post gastrointestinal bleed, black tarry stool, dropped hemoglobin, significant hyponatremia, hemoglobin dropped to 3-4 grams of hemoglobin, rule out active gastrointestinal bleed. RECOMMENDATIONS: Discontinue aspirin, discontinue Plavix, cancel cardia catheterization lab. Sodium significantly improved with 3% saline after 12 hours. A stat GI consult followup and GI evaluation. Discussed with Dr. Bowser, and I explained the patient that we will cancel the cardiac catheterization. If the patient needs endoscopy once cleared from Cardiology point of view, to go with [id number] risk, but we will hold the cardiac catheterization until the GI issue is completely resolved. In the interim, continue close observation. We will follow with you. Thank you Dr. Bowser for providing us the opportunity in taking care of the patient, Lyndon Blancas. Supa Nick MD
[2017-05-04] MEDS: Midazolam 2 MG/2 ML VIAL IVP PRN (22:33)
[2017-05-05] MEDS: Midazolam 2 MG/2 ML VIAL IVP PRN ×2 (02:50→17:58)
[2017-05-05 04:44] LABS: HEMATOCRIT 26.6 % (42.0-52.0); MEAN CELL VOLUME 93.7 fl (80.0-105.0); MEAN CORPUSCULAR HEMOGLOBIN 33.5 pg (25.0-35.0); MEAN CORPUSCULAR HGB CONC 35.7 g/dl (31.0-37.0); MEAN PLATELET VOLUME 8.7 fl (7.0-11.0); RED CELL DISTRIBUTION WIDTH 15.3 % (11.5-14.5); WHITE BLOOD COUNT 11.1 10^3/ul (4.5-11.0)
[2017-05-05 04:49] LABS: PH,URINE 5.5 (4.7-8.0); URINE BILIRUBIN NEGATIVE (NEGATIVE); URINE BLOOD MODERATE (NEGATIVE); URINE GLUCOSE (UA) NEGATIVE (NEGATIVE); URINE KETONE NEGATIVE (NEGATIVE); URINE LEUKOCYTE ESTERASE SMALL Leu/uL (NEGATIVE); URINE PROTEIN TRACE mg/dL (<30 mg/dL); URINE UROBILINOGEN 0.2 E.U./dL (<1 E.U./dL)
[2017-05-05 04:53] LABS: URINE APPEARANCE SL CLOUDY (CLEAR); URINE COLOR YELLOW (YELLOW)
[2017-05-05 04:55] LABS: URINE AMORPHOUS SEDIMENT FEW; URINE BACTERIA OCC (NEG); URINE EPITHELIAL CELLS 0 - 2 /hpf (0-5)
[2017-05-05] MEDS: Pantoprazole 40mg/100ml IVPB 40 MG/100 ML BAG IVPB SCH ×3 (04:59→15:44)
[2017-05-05] MEDS: Cefepime 1gm in NS 100ml 1 GM/100 ML BAG IVPB SCH (05:00)
[2017-05-05] MEDS: metroNIDAZOLE IV 500 mg/100 ml 500 MG/100 ML BAG IVPB SCH (05:00)
[2017-05-05] MEDS: Sodium Chloride 0.9% 1,000 ML IV SCH ×2 (05:00→17:19)
[2017-05-05 05:05] LABS: BILIRUBIN,TOTAL 0.9 mg/dL (0.2-1.3); CALCIUM 7.7 mg/dL (8.4-10.5); POTASSIUM 3.6 mmol/L (3.6-5.0); TOTAL PROTEIN 4.7 g/dL (5.8-8.3)
[2017-05-05] MEDS: Nitroglycerin 2% Ointment Foilpak UD TOP SCH ×3 (05:11→18:25)
[2017-05-05 06:10] LABS: ARTERIAL BLOOD GAS HCO3 18.1 mmol/L (21-28); ARTERIAL BLOOD GAS O2 CAPACITY 11.7 mL/dl (16-24); ARTERIAL BLOOD GAS O2 CONTENT 11.3 ML/dl (15-23); ARTERIAL BLOOD GAS PH 7.36 (7.35-7.45); ARTERIAL BLOOD HGB O2 SAT 92.9 % (95.0-98.0); CARBOXYHEMOGLOBIN 2.4 % (0.5-1.5); HHB 3.4 % (0-5); METHEMOGLOBIN 1.2 % (0.0-3.0)
[2017-05-05] MEDS: Fentanyl 1000mcg/100ml NS 1,000 MCG/100 ML BAG IV SCH ×2 (08:17→23:11)
[2017-05-05 08:52] LABS: HEMATOCRIT 26.4 % (42.0-52.0); MEAN CORPUSCULAR HEMOGLOBIN 33.5 pg (25.0-35.0); MEAN CORPUSCULAR HGB CONC 35.6 g/dl (31.0-37.0); MEAN PLATELET VOLUME 8.6 fl (7.0-11.0); RED CELL DISTRIBUTION WIDTH 15.5 % (11.5-14.5); WHITE BLOOD COUNT 13.6 10^3/ul (4.5-11.0)
--- NOTE | 2017-05-05 09:02 | RAD ---
HISTORY: intubation COMPARISON: 05/04/2017 at 12:01 p.m. FINDINGS: LUNGS: No pulmonary infiltrate. Linear scar/atelectasis at left base. PLEURA: No significant pleural effusion identified, no pneumothorax apparent. CARDIOVASCULAR: Normal heart size. ET tube appropriately positioned with tip approximately 4.8 cm above the tracheal mahi. Nasogastric tube extends to left upper quadrant of the abdomen. OSSEOUS STRUCTURES: No significant abnormalities. VISUALIZED UPPER ABDOMEN: Dilated loops of small bowel are seen beneath the diaphragm. OTHER FINDINGS: None. IMPRESSION: ET tube and NG tube are in grossly appropriate position. Dilated small bowel loops consistent with postoperative ileus status post exploratory laparoscopy and repair of perforated gastric ulcer.
--- NOTE | 2017-05-05 09:07 | PQF ANEMIA ---
This form is a permanent part of the medical record Clarification of your documentation is requested to better reflect the severity of illness and intensity of treatment of your patient. Indicators present 05/04 Drop in H&H, tarry stools, likely 2nd to GIB, CT Abd / pel- perforated gastric ulcer. Transfused w/ 2UPRBC. Please specify type & acuity of anemia Pt with acute anemia secondary to blood loss due to GIB [x] Anemia [x] Drop in H&H from []___ to []___ [] Hypotension [x] GI Bleed [x] Transfusion(s) [] Acute bleed other sites [] Tachycardia [] Surgical Procedure Blood Loss (expected not a complication) Other:[] Location in the medical record that reflects the above clinical findings: [] CT- tarry, stools, perforated gastric ulcer Treatment Provided: [x]Transfuse 2 UPRBC PHYSICIAN'S RESPONSE Based on your medical judgment of the clinical indicators outlined above, are you treating this patient for a known or suspected: [] Acute blood loss anemia [] Chronic blood loss anemia [] Acute on Chronic blood loss anemia [] Anemia due to malignancy [] Anemia due to chemotherapy or radiation therapy [] Anemia of Chronic Disease, please specify: [] [] Other, please indicate type of anemia []____ [] If Unable to Determine, please check the box, sign and date. Present On Admission (POA) Indicator: [] Present at the time of admission [] Not present at the time of admission [] Clinically Undetermined In responding to this query, please exercise your independent professional judgment. The fact that a question is asked does not imply that any particular answer is desired or expected. Thank you for your clarification on this documentation. If you have any questions please call:[ ][phone] * Thank you, [ ]Cecilia Perez RN CD[employer] modeling instructor SYDNEE
--- NOTE | 2017-05-05 09:45 | RAD ---
HISTORY: ventilator COMPARISON: 05/04/2017 FINDINGS: LUNGS: Minimal subsegmental atelectasis at both lung bases. PLEURA: No significant pleural effusion identified, no pneumothorax apparent. CARDIOVASCULAR: ETT and NG tube are unchanged in position. OSSEOUS STRUCTURES: No significant abnormalities. VISUALIZED UPPER ABDOMEN: Normal. OTHER FINDINGS: None. IMPRESSION: No active disease.
--- NOTE | 2017-05-05 10:31 | CP.PCM.CON ---
History of Present Illness - History of Present Illness History of Present Illness: 77 year old male with PMH of colon polyps, COPD, S/P bilateral knee surgery was initially admitted in [facility] because of a fall after he felt lightheaded. He was being worked up for this but was noted to have air under the diaphragm on CXR and was confirmed to a bowel perforation on CT scan. He underwent exploratory laparotomy and gastric wedge resection for perforated gastric ulcer. He is now in the ICU for close observation and continues to be on the ventilator. CT scan of the chest is showing consolidation and pleural effusion in the lower lobes. Infectious diseases consult is requested to further evaluate and manage. Review of Systems - Review of Systems Systems not reviewed;Unavailable: Intubated Past Patient History - Past Social History Smoking Status: Heavy Smoker > 10 Cigarettes Daily - CARDIAC Hx Cardiac Disorders: No - PULMONARY Hx Chronic Obstructive Pulmonary Disease (COPD): Yes - NEUROLOGICAL Hx Neurological Disorder: No - HEENT Hx HEENT Problems: Yes (glasses) - RENAL Hx Chronic Kidney Disease: No - ENDOCRINE/METABOLIC Hx Endocrine Disorders: No - HEMATOLOGICAL/ONCOLOGICAL Hx Blood Disorders: No - INTEGUMENTARY Hx Dermatological Problems: Yes Hx Psoriasis: Yes Other/Comment: large scratch left abd, rle multiple scabs, dry skin to scalp, eliud 1.5cm x 1.5cm round purple growth, abrasion and skin discoloratin l elbow, lle dry red scabs x 2 - MUSCULOSKELETAL/RHEUMATOLOGICAL Hx Arthritis: Yes (hands fingers) - GASTROINTESTINAL Hx Gastrointestinal Disorders: No - GENITOURINARY/GYNECOLOGICAL Hx Genitourinary Disorders: No - PSYCHIATRIC Hx Substance Use: No (denies) - SURGICAL HISTORY Hx Musculoskeletal Surgery: Yes - ANESTHESIA Hx Anesthesia: No Meds Allergies/Adverse Reactions: Allergies Allergy/AdvReac Type Severity Reaction Status Date / Time No Known Allergies Allergy Verified 04/30/17 12:28 - Medications Medications: Current Medications Amlodipine Besylate (Norvasc) 10 mg PO DAILY COUNT INCLUDES THE [facility] Last Admin: 05/03/17 10:25 Dose: Not Given Atorvastatin Calcium (Lipitor) 40 mg PO DIN COUNT INCLUDES THE [facility] Last Admin: 05/04/17 18:11 Dose: Not Given Hydralazine HCl (Apresoline) 10 mg IVP Q6 PRN PRN Reason: SBP> 160 Last Admin: 05/04/17 17:42 Dose: 10 mg Pantoprazole Sodium (Protonix 40mg Ivpb) 40 mg in 100 mls @ 20 mls/hr IVPB .Q5H COUNT INCLUDES THE [facility] Last Admin: 05/05/17 04:59 Dose: 20 mls/hr Cefepime HCl (Maxipime 1gm) 1 gm in 100 mls @ 100 mls/hr IVPB Q8 SILVIA PRN Reason: Protocol Last Admin: 05/05/17 05:00 Dose: 100 mls/hr Metronidazole (Flagyl) 500 mg in 100 mls @ 100 mls/hr IVPB Q8 SILVIA PRN Reason: Protocol Last Admin: 05/05/17 05:00 Dose: 100 mls/hr Sodium Chloride (Sodium Chloride 0.9%) 1,000 mls @ 100 mls/hr IV .Q10H COUNT INCLUDES THE [facility] Last Admin: 05/05/17 05:00 Dose: 100 mls/hr NOREPINEPHRINE BIT/0.9 % NACL (Levophed 4 Mg/ 250 Ml Ns Premixed) 4 mg in 250 mls @ 15 mls/hr IV .[id number] PRN; Protocol; 4 MCG/MIN PRN Reason: TITRATE PER MD ORDER Last Titration: 05/05/17 00:05 Dose: 0 mcg/min, 0 mls/hr Fentanyl Citrate (Fentanyl Citrate/Sodium Chloride 1 Mg/100 Ml) 1,000 mcg in 100 mls @ 2 mls/hr IV .Q24H COUNT INCLUDES THE [facility] PRN Reason: Protocol Last Admin: 05/05/17 08:17 Dose: 7 ml/hr, 7 mls/hr Lisinopril (Zestril) 10 mg PO DAILY COUNT INCLUDES THE [facility] Last Admin: 05/05/17 09:50 Dose: Not Given Metoprolol Tartrate (Lopressor) 25 mg PO BID COUNT INCLUDES THE [facility] Last Admin: 05/04/17 18:11 Dose: Not Given Metoprolol Tartrate (Lopressor) 5 mg IVP Q8H PRN PRN Reason: Systolic Blood Pressure Midazolam HCl (Versed Inj) 4 mg IVP Q4H PRN PRN Reason: Agitation Last Admin: 05/05/17 02:50 Dose: 4 mg Nitroglycerin (Nitro-Bid 2% Oint) 1 ea TOP 0000,0600,1200,1800 COUNT INCLUDES THE [facility] Last Admin: 05/05/17 05:11 Dose: Not Given Physical Exam - Constitutional Appears: Other (intubated and sedated) - Head Exam Head Exam: NORMAL INSPECTION - ENT Exam Additional comments: ET tube in place - Respiratory Exam Respiratory Exam: Decreased Breath Sounds - Cardiovascular Exam Cardiovascular Exam: +S1, +S2 - GI/Abdominal Exam GI & Abdominal Exam: Soft. absent: Tenderness Additional comments: dry dressings in place; MAX drain in place with serosanguinous fluid Results - Vital Signs Recent Vital Signs: Last Vital Signs Temp 98.8 F 05/05/17 05:36 Pulse 88 05/05/17 05:36 Resp 24 05/05/17 05:36 BP 100/46 L 05/05/17 05:00 Pulse Ox 96 05/05/17 05:36 - Labs Result Diagrams: 05/05/17 08:40 05/05/17 04:30 Labs: Laboratory Results - last 24 hr 05/04/17 05/04/17 05/04/17 08:45 17:25 19:30 WBC 11.1 H RBC 3.08 L Hgb 10.2 L D Hct 29.0 L MCV 94.2 MCH 33.1 MCHC 35.2 RDW 14.9 H Plt Count 259 MPV 9.1 pCO2 39 pO2 127.0 H HCO3 21.0 ABG pH 7.34 L ABG Total CO2 22.2 ABG O2 Saturation 99.7 H ABG O2 Content 14.2 L ABG Base Excess -4.4 L ABG Hemoglobin 10.3 L ABG Carboxyhemoglobin 2.6 H POC ABG HHb (Measured) 0.3 ABG Methemoglobin 1.1 ABG O2 Capacity 14.2 L ABG Potassium Hgb O2 Saturation 96.1 Glucose Lactate FiO2 60.0 Sodium Potassium Chloride Carbon Dioxide Anion Gap BUN Creatinine Est GFR ( Amer) Est GFR (Non-Af Amer) Random Glucose Calcium Phosphorus Magnesium Total Bilirubin AST ALT Alkaline Phosphatase Total Protein Albumin Globulin Albumin/Globulin Ratio Arterial Blood Potassium Urine Color Urine Appearance Urine pH Ur Specific [place] Urine Protein Urine Glucose (UA) Urine Ketones Urine Blood Urine Nitrate Urine Bilirubin Urine Urobilinogen Ur Leukocyte Esterase Urine RBC Urine WBC Ur Epithelial Cells Amorphous Sediment Urine Bacteria Hyaline Casts Ur Random Sodium Blood Type A POSITIVE Antibody Screen Negative Crossmatch See Detail BBK History Checked Patient has bt 05/04/17 05/04/17 05/05/17 19:30 21:05 03:28 WBC RBC Hgb Hct MCV MCH MCHC RDW Plt Count MPV pCO2 28 L pO2 90.0 HCO3 17.3 L ABG pH 7.40 ABG Total CO2 18.2 L ABG O2 Saturation 99.2 H ABG O2 Content ABG Base Excess -6.1 L ABG Hemoglobin ABG Carboxyhemoglobin POC ABG HHb (Measured) ABG Methemoglobin ABG O2 Capacity ABG Potassium 3.3 L Hgb O2 Saturation Glucose 102 Lactate 1.3 FiO2 40.0 Sodium 136 136.0 Potassium 3.6 Chloride 106 109.0 H Carbon Dioxide 22 Anion Gap 12 BUN 54 H Creatinine 1.2 Est GFR ( Amer) > 60 Est GFR (Non-Af Amer) 59 Random Glucose 104 Calcium 7.6 L Phosphorus 4.2 Magnesium 1.5 L Total Bilirubin 1.3 AST 37 ALT 50 Alkaline Phosphatase 43 Total Protein 5.0 L Albumin 2.5 L Globulin 2.4 Albumin/Globulin Ratio 1.0 L Arterial Blood Potassium 3.3 L Urine Color Urine Appearance Urine pH Ur Specific [place] Urine Protein Urine Glucose (UA) Urine Ketones Urine Blood Urine Nitrate Urine Bilirubin Urine Urobilinogen Ur Leukocyte Esterase Urine RBC Urine WBC Ur Epithelial Cells Amorphous Sediment Urine Bacteria Hyaline Casts Ur Random Sodium < 5 Blood Type Antibody Screen Crossmatch BBK History Checked 05/05/17 05/05/17 05/05/17 03:28 04:30 04:30 WBC 11.1 H RBC 2.84 L Hgb 9.5 L Hct 26.6 L MCV 93.7 MCH 33.5 MCHC 35.7 RDW 15.3 H Plt Count 252 MPV 8.7 pCO2 pO2 HCO3 ABG pH ABG Total CO2 ABG O2 Saturation ABG O2 Content ABG Base Excess ABG Hemoglobin ABG Carboxyhemoglobin POC ABG HHb (Measured) ABG Methemoglobin ABG O2 Capacity ABG Potassium Hgb O2 Saturation Glucose Lactate FiO2 Sodium 136 Potassium 3.6 Chloride 109 Carbon Dioxide 20 L Anion Gap 11 BUN 62 H Creatinine 1.5 Est GFR ( Amer) 55 Est GFR (Non-Af Amer) 46 Random Glucose 95 Calcium 7.7 L Phosphorus Magnesium Total Bilirubin 0.9 AST 329 H D ALT 269 H Alkaline Phosphatase 45 Total Protein 4.7 L Albumin 2.4 L Globulin 2.3 Albumin/Globulin Ratio 1.0 L Arterial Blood Potassium Urine Color Yellow Urine Appearance Sl cloudy Urine pH 5.5 Ur Specific [place] 1.010 Urine Protein Trace H Urine Glucose (UA) Negative Urine Ketones Negative Urine Blood Moderate H Urine Nitrate Negative Urine Bilirubin Negative Urine Urobilinogen 0.2 Ur Leukocyte Esterase Small H Urine RBC 2 - 5 Urine WBC 1 - 3 Ur Epithelial Cells 0 - 2 Amorphous Sediment Few Urine Bacteria Occ Hyaline Casts 0 - 2 Ur Random Sodium Blood Type Antibody Screen Crossmatch BBK History Checked 05/05/17 05/05/17 05/05/17 04:30 06:07 08:40 WBC 13.6 H D RBC 2.81 L Hgb 9.4 L Hct 26.4 L MCV 94.0 MCH 33.5 MCHC 35.6 RDW 15.5 H Plt Count 244 MPV 8.6 pCO2 32 L pO2 67.0 L HCO3 18.1 L ABG pH 7.36 ABG Total CO2 19.1 L ABG O2 Saturation 96.5 ABG O2 Content 11.3 L ABG Base Excess -6.6 L ABG Hemoglobin 8.6 L ABG Carboxyhemoglobin 2.4 H POC ABG HHb (Measured) 3.4 ABG Methemoglobin 1.2 ABG O2 Capacity 11.7 L ABG Potassium Hgb O2 Saturation 92.9 L Glucose Lactate FiO2 40.0 Sodium Potassium Chloride Carbon Dioxide Anion Gap BUN Creatinine Est GFR ( Amer) Est GFR (Non-Af Amer) Random Glucose Calcium Phosphorus Magnesium 1.8 Total Bilirubin AST ALT Alkaline Phosphatase Total Protein Albumin Globulin Albumin/Globulin Ratio Arterial Blood Potassium Urine Color Urine Appearance Urine pH Ur Specific [place] Urine Protein Urine Glucose (UA) Urine Ketones Urine Blood Urine Nitrate Urine Bilirubin Urine Urobilinogen Ur Leukocyte Esterase Urine RBC Urine WBC Ur Epithelial Cells Amorphous Sediment Urine Bacteria Hyaline Casts Ur Random Sodium Blood Type Antibody Screen Crossmatch BBK History Checked Assessment & Plan - Assessment and Plan (Free Text) Plan: Assessment Systemic Inflammatory Response Syndrome, probably due to perforated gastric ulcer S/P ex-lap and gastric wedge resection POD #1, R/O bilateral lower lobe aspiration pneumonia in a patient still with ventilator-dependent respiratory failure post-op colon polyps COPD S/P bilateral knee surgery Plan Has been on Cefepime and Flagyl but will change to Merrem; will follow up blood cx, will get sputum cx and get PCT; will review repeat CXR's in the subsequent days will monitor MAX drain output will monitor clinically
[2017-05-05] MEDS: Meropenem 1g/NS 100mL IVPB 1 GM/100 ML PIGGYBACK IVPB SCH (10:45)
--- NOTE | 2017-05-05 11:10 | CP.CCUPN ---
<EnderizaJuventino willis - Last Filed: 05/05/17 18:20> CCU Subjective - Physician Review Subjective (Free Text): 05/05/17 11:13 Patient s/e in ICU this AM. Pt is intubated and sedated and HDS. Pt is s/p ex lap with general surgery after finding free air under diaphragm via evidence of CXR and abdominal CT. Patient is hemodynamically stable at this time. CCU Objective - Vital Signs / Intake & Output Intake and Output (Last 8hrs): Intake & Output 05/04/17 05/05/17 05/05/17 22:59 06:59 14:59 Intake Total 2508 824 70 Output Total 395 360 Balance 2113 464 70 Intake: IV 2133 824 70 Left Forearm 1900 Left Hand 50 Right Antecubital 500 Right Hand 240 Blood Product 325 Red Blood Cells Cpd As1 325 Lr Unit [id number] Other 50 Red Blood Cells Cpd As1 50 Lr Unit [id number] Output: Drainage 70 60 Right Abdomen 70 60 Urine 325 300 Urethral (Villela) 325 300 - Physical Exam Head: Positive for: Atraumatic, Normocephalic Pupils: Positive for: PERRL. Negative for: Non-Reactive, Pinpoint Extroacular Muscles: Positive for: EOMI. Negative for: Gaze Palsy Conjunctiva: Positive for: Normal. Negative for: Injected, Icteric Mouth: Positive for: Moist Mucous Membranes, Normal Lips, Normal Tounge Nose (External): Positive for: Atraumatic. Negative for: Abrasion, Contusion, Laceration Neck: Positive for: Normal Range of Motion. Negative for: MIDLINE TENDERNESS, JVD, Lymphadenopathy, Trachea Midline Respiratory/Chest: Positive for: Clear to Auscultation, Good Air Exchange. Negative for: Respiratory Distress, Accessory Muscle Use, Wheezes, Decreased Breath Sounds, Rales, Rhonchi, Tachypneic, Tender to Palpation Cardiovascular: Positive for: Regular Rate and Rhythm, Normal S1, S2. Negative for: Murmurs, Irregular Rhythm, Tachycardic, Bradycardic Abdomen: Positive for: Tenderness, Other (surgical dressing midline c/d/i, gastric tube ). Negative for: Distention, Peritoneal Signs Genitourinary Male: Positive for: Other ([place] catheter in place ) Back: Positive for: Normal Inspection Upper Extremity: Positive for: Normal Inspection, Normal ROM, NORMAL PULSES, Capillary Refill < 2s. Negative for: Cyanosis, Edema, Swelling, Erythema, Deformity Lower Extremity: Positive for: Normal Inspection, NORMAL PULSES, Normal ROM. Negative for: Edema, CALF TENDERNESS, Cyanosis, Tenderness, Swelling, Erythema, Deformity, Capillary Refill < 2 s Neurological: Positive for: Other (sedated and intubated ) Skin: Positive for: Warm, Dry, Normal Color. Negative for: Rashes Psychiatric: Positive for: Normal Affect, Normal Mood. Negative for: Anxious, Agitated Other physical findings (Free Text): sedated and intubated - Medications Active Medications: Active Medications Generic Name Dose Route Start Last Admin Trade Name Freq PRN Reason Stop Dose Admin Amlodipine Besylate 10 mg 05/01/17 12:45 05/03/17 10:25 Norvasc PO Not Given DAILY SILVIA Atorvastatin Calcium 40 mg 05/01/17 17:00 05/04/17 18:11 Lipitor PO Not Given DIN SILVIA Chlorhexidine Gluconate 15 ml 05/05/17 11:00 Peridex PO BID SILVIA Hydralazine HCl 10 mg 05/01/17 02:36 05/04/17 17:42 Apresoline IVP 10 mg Q6 PRN Administration SBP> 160 Pantoprazole Sodium 40 mg in 100 mls @ 20 mls/hr 05/04/17 08:45 05/05/17 10: 07 Protonix 40mg Ivpb IVPB 20 mls/hr .Q5H SILVIA Administration Sodium Chloride 1,000 mls @ 100 mls/hr 05/04/17 18:30 05/05/17 05:00 Sodium Chloride 0.9% IV 100 mls/hr .Q10H SILVIA Administration NOREPINEPHRINE BIT/0.9 % NACL 4 mg in 250 mls @ 15 mls/hr 05/04/17 18:35 00:05 Levophed 4 Mg/ 250 Ml Ns Premixed IV 0 mcg/min .[id number] PRN 0 mls/hr TITRATE PER MD ORDER Titration Protocol 4 MCG/MIN Fentanyl Citrate 1,000 mcg in 100 mls @ 2 mls/hr 05/04/17 22:41 05/05/17 08: 17 Fentanyl Citrate/Sodium Chloride 1 Mg/100 Ml IV 7 ml/hr .Q24H SILVIA 7 mls/hr Protocol Administration Meropenem 1g/NS 100mL IVPB 1 gm in 100 mls @ 100 mls/hr 05/05/17 10:15 10:45 Meropenem 1g/Ns 100ml Ivpb IVPB 05/13/17 10:16 100 mls/hr Q12 SILVIA Administration Protocol Potassium Chloride 10 meq in 100 mls @ 100 mls/hr 05/05/17 10:30 05/05/17 10: 46 Potassium Chloride 10 Meq/100 Ml IVPB 05/05/17 13:29 100 mls/hr Q2H SILVIA Administration Lisinopril 10 mg 05/03/17 10:00 05/05/17 09:50 Zestril PO Not Given DAILY SILVIA Metoprolol Tartrate 25 mg 05/01/17 11:45 05/04/17 18:11 Lopressor PO Not Given BID SILVIA Metoprolol Tartrate 5 mg 05/04/17 18:13 Lopressor IVP Q8H PRN Systolic Blood Pressure Midazolam HCl 4 mg 05/04/17 18:44 05/05/17 02:50 Versed Inj IVP 4 mg Q4H PRN Administration Agitation Nitroglycerin 1 ea 05/02/17 00:00 05/05/17 05:11 Nitro-Bid 2% Oint TOP Not Given 0000,0600,1200,1800 SILVIA - Patient Studies Lab Studies: Microbiology Studies 04/30/17 19:16 Blood Culture - Preliminary Blood NO GROWTH AFTER 4 DAYS 04/30/17 19:16 Blood Culture - Preliminary Blood NO GROWTH AFTER 4 DAYS Lab Studies 05/05/17 05/05/17 05/05/17 Range/Units 08:40 06:07 04:30 WBC 13.6 H D (4.5-11.0) 10^3/ul RBC 2.81 L (3.5-6.1) 10^6/uL Hgb 9.4 L (14.0-18.0) g/dL Hct 26.4 L (42.0-52.0) % MCV 94.0 (80.0-105.0) fl MCH 33.5 (25.0-35.0) pg MCHC 35.6 (31.0-37.0) g/dl RDW 15.5 H (11.5-14.5) % Plt Count 244 (120.0-450.0) 10^3/uL MPV 8.6 (7.0-11.0) fl pCO2 32 L (35-45) mm/Hg pO2 67.0 L (80-100) mm/Hg HCO3 18.1 L (21-28) mmol/L ABG pH 7.36 (7.35-7.45) ABG Total CO2 19.1 L (22-28) mmol.L ABG O2 Saturation 96.5 (95-98) % ABG O2 Content 11.3 L (15-23) ML/dl ABG Base Excess -6.6 L (-2.0-3.0) mmol/L ABG Hemoglobin 8.6 L (11.7-17.4) g/dL ABG Carboxyhemoglobin 2.4 H (0.5-1.5) % POC ABG HHb (Measured) 3.4 (0-5) % ABG Methemoglobin 1.2 (0.0-3.0) % ABG O2 Capacity 11.7 L (16-24) mL/dl ABG Potassium (3.6-5.2) mmol/L Hgb O2 Saturation 92.9 L (95.0-98.0) % Glucose (75-110) mg/dl Lactate (0.7-2.1) mmol/L FiO2 40.0 % Sodium (132-148) mmol/L Potassium (3.6-5.0) mmol/L Chloride (95-110) mmol/L Carbon Dioxide (21-33) mmol/L Anion Gap (10-20) BUN (7-21) mg/dL Creatinine (0.8-1.5) mg/dL Est GFR ( Amer) Est GFR (Non-Af Amer) Random Glucose (70-110) mg/dL Calcium (8.4-10.5) mg/dL Phosphorus (2.5-4.5) mg/dL Magnesium 1.8 (1.7-2.2) mg/dL Total Bilirubin (0.2-1.3) mg/dL AST (17-59) U/L ALT (7-56) U/L Alkaline Phosphatase (38-126) U/L Total Protein (5.8-8.3) g/dL Albumin (3.0-4.8) g/dL Globulin gm/dL Albumin/Globulin Ratio (1.1-1.8) Arterial Blood Potassium (3.6-5.2) mmol/L Urine Color (YELLOW) Urine Appearance (CLEAR) Urine pH (4.7-8.0) Ur Specific [place] (1.005-1.035) Urine Protein (<30 mg/dL) mg/dL Urine Glucose (UA) (NEGATIVE) mg/dL Urine Ketones (NEGATIVE) mg/dL Urine Blood (NEGATIVE) Urine Nitrate (NEGATIVE) Urine Bilirubin (NEGATIVE) Urine Urobilinogen (<1 E.U./dL) E.U./dL Ur Leukocyte Esterase (NEGATIVE) Rhonda/uL Urine RBC (0-2) /hpf Urine WBC (0-6) /hpf Ur Epithelial Cells (0-5) /hpf Amorphous Sediment Urine Bacteria (NEG) Hyaline Casts /hpf Ur Random Sodium meq/L Blood Type Antibody Screen Crossmatch BBK History Checked 05/05/17 05/05/17 05/05/17 Range/Units 04:30 04:30 03:28 WBC 11.1 H (4.5-11.0) 10^3/ul RBC 2.84 L (3.5-6.1) 10^6/uL Hgb 9.5 L (14.0-18.0) g/dL Hct 26.6 L (42.0-52.0) % MCV 93.7 (80.0-105.0) fl MCH 33.5 (25.0-35.0) pg MCHC 35.7 (31.0-37.0) g/dl RDW 15.3 H (11.5-14.5) % Plt Count 252 (120.0-450.0) 10^3/uL MPV 8.7 (7.0-11.0) fl pCO2 (35-45) mm/Hg pO2 (80-100) mm/Hg HCO3 (21-28) mmol/L ABG pH (7.35-7.45) ABG Total CO2 (22-28) mmol.L ABG O2 Saturation (95-98) % ABG O2 Content (15-23) ML/dl ABG Base Excess (-2.0-3.0) mmol/L ABG Hemoglobin (11.7-17.4) g/dL ABG Carboxyhemoglobin (0.5-1.5) % POC ABG HHb (Measured) (0-5) % ABG Methemoglobin (0.0-3.0) % ABG O2 Capacity (16-24) mL/dl ABG Potassium (3.6-5.2) mmol/L Hgb O2 Saturation (95.0-98.0) % Glucose (75-110) mg/dl Lactate (0.7-2.1) mmol/L FiO2 % Sodium 136 (132-148) mmol/L Potassium 3.6 (3.6-5.0) mmol/L Chloride 109 (95-110) mmol/L Carbon Dioxide 20 L (21-33) mmol/L Anion Gap 11 (10-20) BUN 62 H (7-21) mg/dL Creatinine 1.5 (0.8-1.5) mg/dL Est GFR ( Amer) 55 Est GFR (Non-Af Amer) 46 Random Glucose 95 (70-110) mg/dL Calcium 7.7 L (8.4-10.5) mg/dL Phosphorus (2.5-4.5) mg/dL Magnesium (1.7-2.2) mg/dL Total Bilirubin 0.9 (0.2-1.3) mg/dL AST 329 H D (17-59) U/L ALT 269 H (7-56) U/L Alkaline Phosphatase 45 (38-126) U/L Total Protein 4.7 L (5.8-8.3) g/dL Albumin 2.4 L (3.0-4.8) g/dL Globulin 2.3 gm/dL Albumin/Globulin Ratio 1.0 L (1.1-1.8) Arterial Blood Potassium (3.6-5.2) mmol/L Urine Color Yellow (YELLOW) Urine Appearance Sl cloudy (CLEAR) Urine pH 5.5 (4.7-8.0) Ur Specific [place] 1.010 (1.005-1.035) Urine Protein Trace H (<30 mg/dL) mg/dL Urine Glucose (UA) Negative (NEGATIVE) mg/dL Urine Ketones Negative (NEGATIVE) mg/dL Urine Blood Moderate H (NEGATIVE) Urine Nitrate Negative (NEGATIVE) Urine Bilirubin Negative (NEGATIVE) Urine Urobilinogen 0.2 (<1 E.U./dL) E.U./dL Ur Leukocyte Esterase Small H (NEGATIVE) Rhonda/uL Urine RBC 2 - 5 (0-2) /hpf Urine WBC 1 - 3 (0-6) /hpf Ur Epithelial Cells 0 - 2 (0-5) /hpf Amorphous Sediment Few Urine Bacteria Occ (NEG) Hyaline Casts 0 - 2 /hpf Ur Random Sodium meq/L Blood Type Antibody Screen Crossmatch BBK History Checked 05/05/17 05/04/17 05/04/17 Range/Units 03:28 21:05 19:30 WBC (4.5-11.0) 10^3/ul RBC (3.5-6.1) 10^6/uL Hgb (14.0-18.0) g/dL Hct (42.0-52.0) % MCV (80.0-105.0) fl MCH (25.0-35.0) pg MCHC (31.0-37.0) g/dl RDW (11.5-14.5) % Plt Count (120.0-450.0) 10^3/uL MPV (7.0-11.0) fl pCO2 28 L (35-45) mm/Hg pO2 90.0 (80-100) mm/Hg HCO3 17.3 L (21-28) mmol/L ABG pH 7.40 (7.35-7.45) ABG Total CO2 18.2 L (22-28) mmol.L ABG O2 Saturation 99.2 H (95-98) % ABG O2 Content (15-23) ML/dl ABG Base Excess -6.1 L (-2.0-3.0) mmol/L ABG Hemoglobin (11.7-17.4) g/dL ABG Carboxyhemoglobin (0.5-1.5) % POC ABG HHb (Measured) (0-5) % ABG Methemoglobin (0.0-3.0) % ABG O2 Capacity (16-24) mL/dl ABG Potassium 3.3 L (3.6-5.2) mmol/L Hgb O2 Saturation (95.0-98.0) % Glucose 102 (75-110) mg/dl Lactate 1.3 (0.7-2.1) mmol/L FiO2 40.0 % Sodium 136.0 136 (132-148) mmol/L Potassium 3.6 (3.6-5.0) mmol/L Chloride 109.0 H 106 (95-110) mmol/L Carbon Dioxide 22 (21-33) mmol/L Anion Gap 12 (10-20) BUN 54 H (7-21) mg/dL Creatinine 1.2 (0.8-1.5) mg/dL Est GFR ( Amer) > 60 Est GFR (Non-Af Amer) 59 Random Glucose 104 (70-110) mg/dL Calcium 7.6 L (8.4-10.5) mg/dL Phosphorus 4.2 (2.5-4.5) mg/dL Magnesium 1.5 L (1.7-2.2) mg/dL Total Bilirubin 1.3 (0.2-1.3) mg/dL AST 37 (17-59) U/L ALT 50 (7-56) U/L Alkaline Phosphatase 43 (38-126) U/L Total Protein 5.0 L (5.8-8.3) g/dL Albumin 2.5 L (3.0-4.8) g/dL Globulin 2.4 gm/dL Albumin/Globulin Ratio 1.0 L (1.1-1.8) Arterial Blood Potassium 3.3 L (3.6-5.2) mmol/L Urine Color (YELLOW) Urine Appearance (CLEAR) Urine pH (4.7-8.0) Ur Specific [place] (1.005-1.035) Urine Protein (<30 mg/dL) mg/dL Urine Glucose (UA) (NEGATIVE) mg/dL Urine Ketones (NEGATIVE) mg/dL Urine Blood (NEGATIVE) Urine Nitrate (NEGATIVE) Urine Bilirubin (NEGATIVE) Urine Urobilinogen (<1 E.U./dL) E.U./dL Ur Leukocyte Esterase (NEGATIVE) Rhonda/uL Urine RBC (0-2) /hpf Urine WBC (0-6) /hpf Ur Epithelial Cells (0-5) /hpf Amorphous Sediment Urine Bacteria (NEG) Hyaline Casts /hpf Ur Random Sodium < 5 meq/L Blood Type Antibody Screen Crossmatch BBK History Checked 05/04/17 05/04/17 05/04/17 Range/Units 19:30 17:25 08:45 WBC 11.1 H (4.5-11.0) 10^3/ul RBC 3.08 L (3.5-6.1) 10^6/uL Hgb 10.2 L D (14.0-18.0) g/dL Hct 29.0 L (42.0-52.0) % MCV 94.2 (80.0-105.0) fl MCH 33.1 (25.0-35.0) pg MCHC 35.2 (31.0-37.0) g/dl RDW 14.9 H (11.5-14.5) % Plt Count 259 (120.0-450.0) 10^3/uL MPV 9.1 (7.0-11.0) fl pCO2 39 (35-45) mm/Hg pO2 127.0 H (80-100) mm/Hg HCO3 21.0 (21-28) mmol/L ABG pH 7.34 L (7.35-7.45) ABG Total CO2 22.2 (22-28) mmol.L ABG O2 Saturation 99.7 H (95-98) % ABG O2 Content 14.2 L (15-23) ML/dl ABG Base Excess -4.4 L (-2.0-3.0) mmol/L ABG Hemoglobin 10.3 L (11.7-17.4) g/dL ABG Carboxyhemoglobin 2.6 H (0.5-1.5) % POC ABG HHb (Measured) 0.3 (0-5) % ABG Methemoglobin 1.1 (0.0-3.0) % ABG O2 Capacity 14.2 L (16-24) mL/dl ABG Potassium (3.6-5.2) mmol/L Hgb O2 Saturation 96.1 (95.0-98.0) % Glucose (75-110) mg/dl Lactate (0.7-2.1) mmol/L FiO2 60.0 % Sodium (132-148) mmol/L Potassium (3.6-5.0) mmol/L Chloride (95-110) mmol/L Carbon Dioxide (21-33) mmol/L Anion Gap (10-20) BUN (7-21) mg/dL Creatinine (0.8-1.5) mg/dL Est GFR ( Amer) Est GFR (Non-Af Amer) Random Glucose (70-110) mg/dL Calcium (8.4-10.5) mg/dL Phosphorus (2.5-4.5) mg/dL Magnesium (1.7-2.2) mg/dL Total Bilirubin (0.2-1.3) mg/dL AST (17-59) U/L ALT (7-56) U/L Alkaline Phosphatase (38-126) U/L Total Protein (5.8-8.3) g/dL Albumin (3.0-4.8) g/dL Globulin gm/dL Albumin/Globulin Ratio (1.1-1.8) Arterial Blood Potassium (3.6-5.2) mmol/L Urine Color (YELLOW) Urine Appearance (CLEAR) Urine pH (4.7-8.0) Ur Specific [place] (1.005-1.035) Urine Protein (<30 mg/dL) mg/dL Urine Glucose (UA) (NEGATIVE) mg/dL Urine Ketones (NEGATIVE) mg/dL Urine Blood (NEGATIVE) Urine Nitrate (NEGATIVE) Urine Bilirubin (NEGATIVE) Urine Urobilinogen (<1 E.U./dL) E.U./dL Ur Leukocyte Esterase (NEGATIVE) Rhonda/uL Urine RBC (0-2) /hpf Urine WBC (0-6) /hpf Ur Epithelial Cells (0-5) /hpf Amorphous Sediment Urine Bacteria (NEG) Hyaline Casts /hpf Ur Random Sodium meq/L Blood Type A POSITIVE Antibody Screen Negative Crossmatch See Detail BBK History Checked Patient has bt Laboratory Results - last 24 hr 05/04/17 05/04/17 05/04/17 08:45 17:25 19:30 WBC 11.1 H RBC 3.08 L Hgb 10.2 L D Hct 29.0 L MCV 94.2 MCH 33.1 MCHC 35.2 RDW 14.9 H Plt Count 259 MPV 9.1 pCO2 39 pO2 127.0 H HCO3 21.0 ABG pH 7.34 L ABG Total CO2 22.2 ABG O2 Saturation 99.7 H ABG O2 Content 14.2 L ABG Base Excess -4.4 L ABG Hemoglobin 10.3 L ABG Carboxyhemoglobin 2.6 H POC ABG HHb (Measured) 0.3 ABG Methemoglobin 1.1 ABG O2 Capacity 14.2 L ABG Potassium Hgb O2 Saturation 96.1 Glucose Lactate FiO2 60.0 Sodium Potassium Chloride Carbon Dioxide Anion Gap BUN Creatinine Est GFR ( Amer) Est GFR (Non-Af Amer) Random Glucose Calcium Phosphorus Magnesium Total Bilirubin AST ALT Alkaline Phosphatase Total Protein Albumin Globulin Albumin/Globulin Ratio Arterial Blood Potassium Urine Color Urine Appearance Urine pH Ur Specific [place] Urine Protein Urine Glucose (UA) Urine Ketones Urine Blood Urine Nitrate Urine Bilirubin Urine Urobilinogen Ur Leukocyte Esterase Urine RBC Urine WBC Ur Epithelial Cells Amorphous Sediment Urine Bacteria Hyaline Casts Ur Random Sodium Blood Type A POSITIVE Antibody Screen Negative Crossmatch See Detail BBK History Checked Patient has bt 05/04/17 05/04/17 05/05/17 19:30 21:05 03:28 WBC RBC Hgb Hct MCV MCH MCHC RDW Plt Count MPV pCO2 28 L pO2 90.0 HCO3 17.3 L ABG pH 7.40 ABG Total CO2 18.2 L ABG O2 Saturation 99.2 H ABG O2 Content ABG Base Excess -6.1 L ABG Hemoglobin ABG Carboxyhemoglobin POC ABG HHb (Measured) ABG Methemoglobin ABG O2 Capacity ABG Potassium 3.3 L Hgb O2 Saturation Glucose 102 Lactate 1.3 FiO2 40.0 Sodium 136 136.0 Potassium 3.6 Chloride 106 109.0 H Carbon Dioxide 22 Anion Gap 12 BUN 54 H Creatinine 1.2 Est GFR ( Amer) > 60 Est GFR (Non-Af Amer) 59 Random Glucose 104 Calcium 7.6 L Phosphorus 4.2 Magnesium 1.5 L Total Bilirubin 1.3 AST 37 ALT 50 Alkaline Phosphatase 43 Total Protein 5.0 L Albumin 2.5 L Globulin 2.4 Albumin/Globulin Ratio 1.0 L Arterial Blood Potassium 3.3 L Urine Color Urine Appearance Urine pH Ur Specific [place] Urine Protein Urine Glucose (UA) Urine Ketones Urine Blood Urine Nitrate Urine Bilirubin Urine Urobilinogen Ur Leukocyte Esterase Urine RBC Urine WBC Ur Epithelial Cells Amorphous Sediment Urine Bacteria Hyaline Casts Ur Random Sodium < 5 Blood Type Antibody Screen Crossmatch BBK History Checked 05/05/17 05/05/17 05/05/17 03:28 04:30 04:30 WBC 11.1 H RBC 2.84 L Hgb 9.5 L Hct 26.6 L MCV 93.7 MCH 33.5 MCHC 35.7 RDW 15.3 H Plt Count 252 MPV 8.7 pCO2 pO2 HCO3 ABG pH ABG Total CO2 ABG O2 Saturation ABG O2 Content ABG Base Excess ABG Hemoglobin ABG Carboxyhemoglobin POC ABG HHb (Measured) ABG Methemoglobin ABG O2 Capacity ABG Potassium Hgb O2 Saturation Glucose Lactate FiO2 Sodium 136 Potassium 3.6 Chloride 109 Carbon Dioxide 20 L Anion Gap 11 BUN 62 H Creatinine 1.5 Est GFR ( Amer) 55 Est GFR (Non-Af Amer) 46 Random Glucose 95 Calcium 7.7 L Phosphorus Magnesium Total Bilirubin 0.9 AST 329 H D ALT 269 H Alkaline Phosphatase 45 Total Protein 4.7 L Albumin 2.4 L Globulin 2.3 Albumin/Globulin Ratio 1.0 L Arterial Blood Potassium Urine Color Yellow Urine Appearance Sl cloudy Urine pH 5.5 Ur Specific [place] 1.010 Urine Protein Trace H Urine Glucose (UA) Negative Urine Ketones Negative Urine Blood Moderate H Urine Nitrate Negative Urine Bilirubin Negative Urine Urobilinogen 0.2 Ur Leukocyte Esterase Small H Urine RBC 2 - 5 Urine WBC 1 - 3 Ur Epithelial Cells 0 - 2 Amorphous Sediment Few Urine Bacteria Occ Hyaline Casts 0 - 2 Ur Random Sodium Blood Type Antibody Screen Crossmatch BBK History Checked 05/05/17 05/05/17 05/05/17 04:30 06:07 08:40 WBC 13.6 H D RBC 2.81 L Hgb 9.4 L Hct 26.4 L MCV 94.0 MCH 33.5 MCHC 35.6 RDW 15.5 H Plt Count 244 MPV 8.6 pCO2 32 L pO2 67.0 L HCO3 18.1 L ABG pH 7.36 ABG Total CO2 19.1 L ABG O2 Saturation 96.5 ABG O2 Content 11.3 L ABG Base Excess -6.6 L ABG Hemoglobin 8.6 L ABG Carboxyhemoglobin 2.4 H POC ABG HHb (Measured) 3.4 ABG Methemoglobin 1.2 ABG O2 Capacity 11.7 L ABG Potassium Hgb O2 Saturation 92.9 L Glucose Lactate FiO2 40.0 Sodium Potassium Chloride Carbon Dioxide Anion Gap BUN Creatinine Est GFR ( Amer) Est GFR (Non-Af Amer) Random Glucose Calcium Phosphorus Magnesium 1.8 Total Bilirubin AST ALT Alkaline Phosphatase Total Protein Albumin Globulin Albumin/Globulin Ratio Arterial Blood Potassium Urine Color Urine Appearance Urine pH Ur Specific [place] Urine Protein Urine Glucose (UA) Urine Ketones Urine Blood Urine Nitrate Urine Bilirubin Urine Urobilinogen Ur Leukocyte Esterase Urine RBC Urine WBC Ur Epithelial Cells Amorphous Sediment Urine Bacteria Hyaline Casts Ur Random Sodium Blood Type Antibody Screen Crossmatch BBK History Checked Critical Care Progress Note - Nutrition Nutrition: Nutrition Category Date Time Status NPO Diet [DIET] Diets 05/04/17 Breakfast Ordered Assessment/Plan - Assessment and Plan (Free Text) Assessment: 77 year old male with PMH of COPD, HTN, hyperglycemia, recent hx of falls, and suspected upper GI bleed who was admitted to ICU with NSTEMI, hyponatremia, and hypokalemia on 05/01. Patient was stabalized and transferred to the floor. While there he had a drop in his Hgb and became tachycardic. CXR showed free air under diaphragm and CT abdomen confirmed free air. Patient went for ex lap and repair of gastric perforation in greater curvature of stomach. Patient is currently ventilated and medically managed in ICU. Plan: Neuro: Sedated and Intubated Assessment prior to surgery showed AAO to person, time, not necessarily place Continue to monitor Maintain normothermia and euvolemia Pulm: Intubated on PRVC, will continue through out day with consideration of recent abdominal surgery Chest CT: notable for multiple fractured ribs with hx of multiple falls CT chest showing no lung mass, vertebral fracture of T8, multiple left-sided rib fractures, moderate size left pleural effusion Hx of COPD CVS: NSTEMI - Troponin elevation on admission, trending down now - Continue lipitor, BB - ECHO (05/01) EF of 55%, mild concentric LVH, mod MR, mild TR, no pericardial effusion - Cardiology consulted(Dr. Nick) and following, curbside LHC will be placed on hold for time being HTN - Lopressor, Lisinopril PO HDS not requiring pressor support at this time Continue to monitor GI: Perforation of gastric ulcer s/p ex lap with gastric wedge resection POD#1 - General surgery(Dr. Mccrary) consulted and following - H/H stable - GI consulted(Dr. Lemus) recs Protonix for GI ppx Renal: - Cr increasing over past 72 hrs, continue fluids, will monitor - avoid nephrotoxic medications - Nephrology(Dr. Greenwood) following appreciate recs - Monitor electrolytes and replace as necessary Heme: H/H stable at this time s/p 2 units transfused ID: [id number] - On meropenem at this time - UA unremarkable - Bld Clx: negative - Urine clx: contamination - Procal pending ID following (Dr. Rosario)(Dr. Mayer) Case and plan discussed with attending Dr. Rivera - Date & Time Date: 05/05/17 Time: 11:09 <Miguel HERNANDEZ,Elisabet H - Last Filed: 05/05/17 18:25> CCU Objective - Vital Signs / Intake & Output Vital Signs (Last 4 hours): Vital Signs Pulse Resp BP Pulse Ox 05/05/17 15:45 84 10 L 101/44 L 96 05/05/17 15:30 87 11 L 97/48 L 96 05/05/17 15:15 87 11 L 98/48 L 95 05/05/17 15:10 87 14 94/45 L 93 L 05/05/17 15:00 88 11 L 88/40 L 93 L 05/05/17 14:45 88 12 81/45 L 94 L 05/05/17 14:30 86 12 106/45 L 93 L Intake and Output (Last 8hrs): Intake & Output 05/05/17 05/05/17 05/05/17 06:59 14:59 22:59 Intake Total 824 70 Output Total 360 40 Balance 464 30 Weight 224 lb 14.4 oz Intake: IV 824 70 Left Hand 50 Right Antecubital 500 Right Hand 240 Output: Drainage 60 40 Right Abdomen 60 40 Urine 300 Urethral (V[place]la) 300 - Medications Active Medications: Active Medications Generic Name Dose Route Start Last Admin Trade Name Freq PRN Reason Stop Dose Admin Amlodipine Besylate 10 mg 05/01/17 12:45 05/03/17 10:25 Norvasc PO Not Given DAILY SILVIA Atorvastatin Calcium 40 mg 05/01/17 17:00 05/05/17 17:13 Lipitor PO Not Given DIN SILVIA Chlorhexidine Gluconate 15 ml 05/05/17 11:00 05/05/17 17:14 Peridex PO 15 ml BID SILVIA Administration Hydralazine HCl 10 mg 05/01/17 02:36 05/04/17 17:42 Apresoline IVP 10 mg Q6 PRN Administration SBP> 160 Pantoprazole Sodium 40 mg in 100 mls @ 20 mls/hr 05/04/17 08:45 05/05/17 15: 44 Protonix 40mg Ivpb IVPB 20 mls/hr .Q5H SILVIA Administration Sodium Chloride 1,000 mls @ 100 mls/hr 05/04/17 18:30 05/05/17 17:19 Sodium Chloride 0.9% IV 100 mls/hr .Q10H SILVIA Administration NOREPINEPHRINE BIT/0.9 % NACL 4 mg in 250 mls @ 15 mls/hr 05/04/17 18:35 00:05 Levophed 4 Mg/ 250 Ml Ns Premixed IV 0 mcg/min .[id number] PRN 0 mls/hr TITRATE PER MD ORDER Titration Protocol 4 MCG/MIN Fentanyl Citrate 1,000 mcg in 100 mls @ 2 mls/hr 05/04/17 22:41 05/05/17 08: 17 Fentanyl Citrate/Sodium Chloride 1 Mg/100 Ml IV 7 ml/hr .Q24H SILVIA 7 mls/hr Protocol Administration Meropenem 1g/NS 100mL IVPB 1 gm in 100 mls @ 100 mls/hr 05/05/17 10:15 10:45 Meropenem 1g/Ns 100ml Ivpb IVPB 05/13/17 10:16 100 mls/hr Q12 SILVIA Administration Protocol Lisinopril 10 mg 05/03/17 10:00 05/05/17 09:50 Zestril PO Not Given DAILY SILVIA Metoprolol Tartrate 25 mg 05/01/17 11:45 05/04/17 18:11 Lopressor PO Not Given BID SILVIA Metoprolol Tartrate 5 mg 05/04/17 18:13 Lopressor IVP Q8H PRN Systolic Blood Pressure Midazolam HCl 4 mg 05/04/17 18:44 05/05/17 17:58 Versed Inj IVP 4 mg Q4H PRN Administration Agitation Nitroglycerin 1 ea 05/02/17 00:00 05/05/17 13:41 Nitro-Bid 2% Oint TOP 1 ea 0000,0600,1200,1800 SILVIA Administration - Patient Studies Lab Studies: Microbiology Studies 04/30/17 19:16 Blood Culture - Preliminary Blood NO GROWTH AFTER 4 DAYS 04/30/17 19:16 Blood Culture - Preliminary Blood NO GROWTH AFTER 4 DAYS Lab Studies 05/05/17 05/05/17 05/05/17 Range/Units 11:12 08:40 06:07 WBC 13.6 H D (4.5-11.0) 10^3/ul RBC 2.81 L (3.5-6.1) 10^6/uL Hgb 9.4 L (14.0-18.0) g/dL Hct 26.4 L (42.0-52.0) % MCV 94.0 (80.0-105.0) fl MCH 33.5 (25.0-35.0) pg MCHC 35.6 (31.0-37.0) g/dl RDW 15.5 H (11.5-14.5) % Plt Count 244 (120.0-450.0) 10^3/uL MPV 8.6 (7.0-11.0) fl pCO2 32 L (35-45) mm/Hg pO2 67.0 L (80-100) mm/Hg HCO3 18.1 L (21-28) mmol/L ABG pH 7.36 (7.35-7.45) ABG Total CO2 19.1 L (22-28) mmol.L ABG O2 Saturation 96.5 (95-98) % ABG O2 Content 11.3 L (15-23) ML/dl ABG Base Excess -6.6 L (-2.0-3.0) mmol/L ABG Hemoglobin 8.6 L (11.7-17.4) g/dL ABG Carboxyhemoglobin 2.4 H (0.5-1.5) % POC ABG HHb (Measured) 3.4 (0-5) % ABG Methemoglobin 1.2 (0.0-3.0) % ABG O2 Capacity 11.7 L (16-24) mL/dl ABG Potassium (3.6-5.2) mmol/L Hgb O2 Saturation 92.9 L (95.0-98.0) % Glucose (75-110) mg/dl Lactate (0.7-2.1) mmol/L FiO2 40.0 % Sodium (132-148) mmol/L Potassium (3.6-5.0) mmol/L Chloride (95-110) mmol/L Carbon Dioxide (21-33) mmol/L Anion Gap (10-20) BUN (7-21) mg/dL Creatinine (0.8-1.5) mg/dL Est GFR ( Amer) Est GFR (Non-Af Amer) Random Glucose (70-110) mg/dL Calcium (8.4-10.5) mg/dL Phosphorus (2.5-4.5) mg/dL Magnesium (1.7-2.2) mg/dL Total Bilirubin (0.2-1.3) mg/dL AST (17-59) U/L ALT (7-56) U/L Alkaline Phosphatase (38-126) U/L Total Protein (5.8-8.3) g/dL Albumin (3.0-4.8) g/dL Globulin gm/dL Albumin/Globulin Ratio (1.1-1.8) Procalcitonin 2.34 H (0.19-0.49) NG/ML Arterial Blood Potassium (3.6-5.2) mmol/L Urine Color (YELLOW) Urine Appearance (CLEAR) Urine pH (4.7-8.0) Ur Specific [place] (1.005-1.035) Urine Protein (<30 mg/dL) mg/dL Urine Glucose (UA) (NEGATIVE) mg/dL Urine Ketones (NEGATIVE) mg/dL Urine Blood (NEGATIVE) Urine Nitrate (NEGATIVE) Urine Bilirubin (NEGATIVE) Urine Urobilinogen (<1 E.U./dL) E.U./dL Ur Leukocyte Esterase (NEGATIVE) Rhonda/uL Urine RBC (0-2) /hpf Urine WBC (0-6) /hpf Ur Epithelial Cells (0-5) /hpf Amorphous Sediment Urine Bacteria (NEG) Hyaline Casts /hpf Urine Osmolality (300-1000) mosm/kg Ur Random Sodium meq/L Crossmatch 05/05/17 05/05/17 05/05/17 Range/Units 04:30 04:30 04:30 WBC 11.1 H (4.5-11.0) 10^3/ul RBC 2.84 L (3.5-6.1) 10^6/uL Hgb 9.5 L (14.0-18.0) g/dL Hct 26.6 L (42.0-52.0) % MCV 93.7 (80.0-105.0) fl MCH 33.5 (25.0-35.0) pg MCHC 35.7 (31.0-37.0) g/dl RDW 15.3 H (11.5-14.5) % Plt Count 252 (120.0-450.0) 10^3/uL MPV 8.7 (7.0-11.0) fl pCO2 (35-45) mm/Hg pO2 (80-100) mm/Hg HCO3 (21-28) mmol/L ABG pH (7.35-7.45) ABG Total CO2 (22-28) mmol.L ABG O2 Saturation (95-98) % ABG O2 Content (15-23) ML/dl ABG Base Excess (-2.0-3.0) mmol/L ABG Hemoglobin (11.7-17.4) g/dL ABG Carboxyhemoglobin (0.5-1.5) % POC ABG HHb (Measured) (0-5) % ABG Methemoglobin (0.0-3.0) % ABG O2 Capacity (16-24) mL/dl ABG Potassium (3.6-5.2) mmol/L Hgb O2 Saturation (95.0-98.0) % Glucose (75-110) mg/dl Lactate (0.7-2.1) mmol/L FiO2 % Sodium 136 (132-148) mmol/L Potassium 3.6 (3.6-5.0) mmol/L Chloride 109 (95-110) mmol/L Carbon Dioxide 20 L (21-33) mmol/L Anion Gap 11 (10-20) BUN 62 H (7-21) mg/dL Creatinine 1.5 (0.8-1.5) mg/dL Est GFR ( Amer) 55 Est GFR (Non-Af Amer) 46 Random Glucose 95 (70-110) mg/dL Calcium 7.7 L (8.4-10.5) mg/dL Phosphorus (2.5-4.5) mg/dL Magnesium 1.8 (1.7-2.2) mg/dL Total Bilirubin 0.9 (0.2-1.3) mg/dL AST 329 H D (17-59) U/L ALT 269 H (7-56) U/L Alkaline Phosphatase 45 (38-126) U/L Total Protein 4.7 L (5.8-8.3) g/dL Albumin 2.4 L (3.0-4.8) g/dL Globulin 2.3 gm/dL Albumin/Globulin Ratio 1.0 L (1.1-1.8) Procalcitonin (0.19-0.49) NG/ML Arterial Blood Potassium (3.6-5.2) mmol/L Urine Color (YELLOW) Urine Appearance (CLEAR) Urine pH (4.7-8.0) Ur Specific [place] (1.005-1.035) Urine Protein (<30 mg/dL) mg/dL Urine Glucose (UA) (NEGATIVE) mg/dL Urine Ketones (NEGATIVE) mg/dL Urine Blood (NEGATIVE) Urine Nitrate (NEGATIVE) Urine Bilirubin (NEGATIVE) Urine Urobilinogen (<1 E.U./dL) E.U./dL Ur Leukocyte Esterase (NEGATIVE) Rhonda/uL Urine RBC (0-2) /hpf Urine WBC (0-6) /hpf Ur Epithelial Cells (0-5) /hpf Amorphous Sediment Urine Bacteria (NEG) Hyaline Casts /hpf Urine Osmolality (300-1000) mosm/kg Ur Random Sodium meq/L Crossmatch 05/05/17 05/05/17 05/05/17 Range/Units 03:28 03:28 03:00 WBC (4.5-11.0) 10^3/ul RBC (3.5-6.1) 10^6/uL Hgb (14.0-18.0) g/dL Hct (42.0-52.0) % MCV (80.0-105.0) fl MCH (25.0-35.0) pg MCHC (31.0-37.0) g/dl RDW (11.5-14.5) % Plt Count (120.0-450.0) 10^3/uL MPV (7.0-11.0) fl pCO2 (35-45) mm/Hg pO2 (80-100) mm/Hg HCO3 (21-28) mmol/L ABG pH (7.35-7.45) ABG Total CO2 (22-28) mmol.L ABG O2 Saturation (95-98) % ABG O2 Content (15-23) ML/dl ABG Base Excess (-2.0-3.0) mmol/L ABG Hemoglobin (11.7-17.4) g/dL ABG Carboxyhemoglobin (0.5-1.5) % POC ABG HHb (Measured) (0-5) % ABG Methemoglobin (0.0-3.0) % ABG O2 Capacity (16-24) mL/dl ABG Potassium (3.6-5.2) mmol/L Hgb O2 Saturation (95.0-98.0) % Glucose (75-110) mg/dl Lactate (0.7-2.1) mmol/L FiO2 % Sodium (132-148) mmol/L Potassium (3.6-5.0) mmol/L Chloride (95-110) mmol/L Carbon Dioxide (21-33) mmol/L Anion Gap (10-20) BUN (7-21) mg/dL Creatinine (0.8-1.5) mg/dL Est GFR ( Amer) Est GFR (Non-Af Amer) Random Glucose (70-110) mg/dL Calcium (8.4-10.5) mg/dL Phosphorus (2.5-4.5) mg/dL Magnesium (1.7-2.2) mg/dL Total Bilirubin (0.2-1.3) mg/dL AST (17-59) U/L ALT (7-56) U/L Alkaline Phosphatase (38-126) U/L Total Protein (5.8-8.3) g/dL Albumin (3.0-4.8) g/dL Globulin gm/dL Albumin/Globulin Ratio (1.1-1.8) Procalcitonin (0.19-0.49) NG/ML Arterial Blood Potassium (3.6-5.2) mmol/L Urine Color Yellow (YELLOW) Urine Appearance Sl cloudy (CLEAR) Urine pH 5.5 (4.7-8.0) Ur Specific [place] 1.010 (1.005-1.035) Urine Protein Trace H (<30 mg/dL) mg/dL Urine Glucose (UA) Negative (NEGATIVE) mg/dL Urine Ketones Negative (NEGATIVE) mg/dL Urine Blood Moderate H (NEGATIVE) Urine Nitrate Negative (NEGATIVE) Urine Bilirubin Negative (NEGATIVE) Urine Urobilinogen 0.2 (<1 E.U./dL) E.U./dL Ur Leukocyte Esterase Small H (NEGATIVE) Rhonda/uL Urine RBC 2 - 5 (0-2) /hpf Urine WBC 1 - 3 (0-6) /hpf Ur Epithelial Cells 0 - 2 (0-5) /hpf Amorphous Sediment Few Urine Bacteria Occ (NEG) Hyaline Casts 0 - 2 /hpf Urine Osmolality 441 (300-1000) mosm/kg Ur Random Sodium < 5 meq/L Crossmatch 05/04/17 05/04/17 05/04/17 Range/Units 21:05 19:30 19:30 WBC 11.1 H (4.5-11.0) 10^3/ul RBC 3.08 L (3.5-6.1) 10^6/uL Hgb 10.2 L D (14.0-18.0) g/dL Hct 29.0 L (42.0-52.0) % MCV 94.2 (80.0-105.0) fl MCH 33.1 (25.0-35.0) pg MCHC 35.2 (31.0-37.0) g/dl RDW 14.9 H (11.5-14.5) % Plt Count 259 (120.0-450.0) 10^3/uL MPV 9.1 (7.0-11.0) fl pCO2 28 L (35-45) mm/Hg pO2 90.0 (80-100) mm/Hg HCO3 17.3 L (21-28) mmol/L ABG pH 7.40 (7.35-7.45) ABG Total CO2 18.2 L (22-28) mmol.L ABG O2 Saturation 99.2 H (95-98) % ABG O2 Content (15-23) ML/dl ABG Base Excess -6.1 L (-2.0-3.0) mmol/L ABG Hemoglobin (11.7-17.4) g/dL ABG Carboxyhemoglobin (0.5-1.5) % POC ABG HHb (Measured) (0-5) % ABG Methemoglobin (0.0-3.0) % ABG O2 Capacity (16-24) mL/dl ABG Potassium 3.3 L (3.6-5.2) mmol/L Hgb O2 Saturation (95.0-98.0) % Glucose 102 (75-110) mg/dl Lactate 1.3 (0.7-2.1) mmol/L FiO2 40.0 % Sodium 136.0 136 (132-148) mmol/L Potassium 3.6 (3.6-5.0) mmol/L Chloride 109.0 H 106 (95-110) mmol/L Carbon Dioxide 22 (21-33) mmol/L Anion Gap 12 (10-20) BUN 54 H (7-21) mg/dL Creatinine 1.2 (0.8-1.5) mg/dL Est GFR ( Amer) > 60 Est GFR (Non-Af Amer) 59 Random Glucose 104 (70-110) mg/dL Calcium 7.6 L (8.4-10.5) mg/dL Phosphorus 4.2 (2.5-4.5) mg/dL Magnesium 1.5 L (1.7-2.2) mg/dL Total Bilirubin 1.3 (0.2-1.3) mg/dL AST 37 (17-59) U/L ALT 50 (7-56) U/L Alkaline Phosphatase 43 (38-126) U/L Total Protein 5.0 L (5.8-8.3) g/dL Albumin 2.5 L (3.0-4.8) g/dL Globulin 2.4 gm/dL Albumin/Globulin Ratio 1.0 L (1.1-1.8) Procalcitonin (0.19-0.49) NG/ML Arterial Blood Potassium 3.3 L (3.6-5.2) mmol/L Urine Color (YELLOW) Urine Appearance (CLEAR) Urine pH (4.7-8.0) Ur Specific [place] (1.005-1.035) Urine Protein (<30 mg/dL) mg/dL Urine Glucose (UA) (NEGATIVE) mg/dL Urine Ketones (NEGATIVE) mg/dL Urine Blood (NEGATIVE) Urine Nitrate (NEGATIVE) Urine Bilirubin (NEGATIVE) Urine Urobilinogen (<1 E.U./dL) E.U./dL Ur Leukocyte Esterase (NEGATIVE) Rhonda/uL Urine RBC (0-2) /hpf Urine WBC (0-6) /hpf Ur Epithelial Cells (0-5) /hpf Amorphous Sediment Urine Bacteria (NEG) Hyaline Casts /hpf Urine Osmolality (300-1000) mosm/kg Ur Random Sodium meq/L Crossmatch 05/04/17 Range/Units 08:45 WBC (4.5-11.0) 10^3/ul RBC (3.5-6.1) 10^6/uL Hgb (14.0-18.0) g/dL Hct (42.0-52.0) % MCV (80.0-105.0) fl MCH (25.0-35.0) pg MCHC (31.0-37.0) g/dl RDW (11.5-14.5) % Plt Count (120.0-450.0) 10^3/uL MPV (7.0-11.0) fl pCO2 (35-45) mm/Hg pO2 (80-100) mm/Hg HCO3 (21-28) mmol/L ABG pH (7.35-7.45) ABG Total CO2 (22-28) mmol.L ABG O2 Saturation (95-98) % ABG O2 Content (15-23) ML/dl ABG Base Excess (-2.0-3.0) mmol/L ABG Hemoglobin (11.7-17.4) g/dL ABG Carboxyhemoglobin (0.5-1.5) % POC ABG HHb (Measured) (0-5) % ABG Methemoglobin (0.0-3.0) % ABG O2 Capacity (16-24) mL/dl ABG Potassium (3.6-5.2) mmol/L Hgb O2 Saturation (95.0-98.0) % Glucose (75-110) mg/dl Lactate (0.7-2.1) mmol/L FiO2 % Sodium (132-148) mmol/L Potassium (3.6-5.0) mmol/L Chloride (95-110) mmol/L Carbon Dioxide (21-33) mmol/L Anion Gap (10-20) BUN (7-21) mg/dL Creatinine (0.8-1.5) mg/dL Est GFR ( Amer) Est GFR (Non-Af Amer) Random Glucose (70-110) mg/dL Calcium (8.4-10.5) mg/dL Phosphorus (2.5-4.5) mg/dL Magnesium (1.7-2.2) mg/dL Total Bilirubin (0.2-1.3) mg/dL AST (17-59) U/L ALT (7-56) U/L Alkaline Phosphatase (38-126) U/L Total Protein (5.8-8.3) g/dL Albumin (3.0-4.8) g/dL Globulin gm/dL Albumin/Globulin Ratio (1.1-1.8) Procalcitonin (0.19-0.49) NG/ML Arterial Blood Potassium (3.6-5.2) mmol/L Urine Color (YELLOW) Urine Appearance (CLEAR) Urine pH (4.7-8.0) Ur Specific [place] (1.005-1.035) Urine Protein (<30 mg/dL) mg/dL Urine Glucose (UA) (NEGATIVE) mg/dL Urine Ketones (NEGATIVE) mg/dL Urine Blood (NEGATIVE) Urine Nitrate (NEGATIVE) Urine Bilirubin (NEGATIVE) Urine Urobilinogen (<1 E.U./dL) E.U./dL Ur Leukocyte Esterase (NEGATIVE) Rhonda/uL Urine RBC (0-2) /hpf Urine WBC (0-6) /hpf Ur Epithelial Cells (0-5) /hpf Amorphous Sediment Urine Bacteria (NEG) Hyaline Casts /hpf Urine Osmolality (300-1000) mosm/kg Ur Random Sodium meq/L Crossmatch See Detail Laboratory Results - last 24 hr 05/04/17 05/04/17 05/04/17 08:45 19:30 19:30 WBC 11.1 H RBC 3.08 L Hgb 10.2 L D Hct 29.0 L MCV 94.2 MCH 33.1 MCHC 35.2 RDW 14.9 H Plt Count 259 MPV 9.1 pCO2 pO2 HCO3 ABG pH ABG Total CO2 ABG O2 Saturation ABG O2 Content ABG Base Excess ABG Hemoglobin ABG Carboxyhemoglobin POC ABG HHb (Measured) ABG Methemoglobin ABG O2 Capacity ABG Potassium Hgb O2 Saturation Glucose Lactate FiO2 Sodium 136 Potassium 3.6 Chloride 106 Carbon Dioxide 22 Anion Gap 12 BUN 54 H Creatinine 1.2 Est GFR ( Amer) > 60 Est GFR (Non-Af Amer) 59 Random Glucose 104 Calcium 7.6 L Phosphorus 4.2 Magnesium 1.5 L Total Bilirubin 1.3 AST 37 ALT 50 Alkaline Phosphatase 43 Total Protein 5.0 L Albumin 2.5 L Globulin 2.4 Albumin/Globulin Ratio 1.0 L Procalcitonin Arterial Blood Potassium Urine Color Urine Appearance Urine pH Ur Specific [place] Urine Protein Urine Glucose (UA) Urine Ketones Urine Blood Urine Nitrate Urine Bilirubin Urine Urobilinogen Ur Leukocyte Esterase Urine RBC Urine WBC Ur Epithelial Cells Amorphous Sediment Urine Bacteria Hyaline Casts Urine Osmolality Ur Random Sodium Crossmatch See Detail 05/04/17 05/05/17 05/05/17 21:05 03:00 03:28 WBC RBC Hgb Hct MCV MCH MCHC RDW Plt Count MPV pCO2 28 L pO2 90.0 HCO3 17.3 L ABG pH 7.40 ABG Total CO2 18.2 L ABG O2 Saturation 99.2 H ABG O2 Content ABG Base Excess -6.1 L ABG Hemoglobin ABG Carboxyhemoglobin POC ABG HHb (Measured) ABG Methemoglobin ABG O2 Capacity ABG Potassium 3.3 L Hgb O2 Saturation Glucose 102 Lactate 1.3 FiO2 40.0 Sodium 136.0 Potassium Chloride 109.0 H Carbon Dioxide Anion Gap BUN Creatinine Est GFR ( Amer) Est GFR (Non-Af Amer) Random Glucose Calcium Phosphorus Magnesium Total Bilirubin AST ALT Alkaline Phosphatase Total Protein Albumin Globulin Albumin/Globulin Ratio Procalcitonin Arterial Blood Potassium 3.3 L Urine Color Urine Appearance Urine pH Ur Specific [place] Urine Protein Urine Glucose (UA) Urine Ketones Urine Blood Urine Nitrate Urine Bilirubin Urine Urobilinogen Ur Leukocyte Esterase Urine RBC Urine WBC Ur Epithelial Cells Amorphous Sediment Urine Bacteria Hyaline Casts Urine Osmolality 441 Ur Random Sodium < 5 Crossmatch 05/05/17 05/05/17 05/05/17 03:28 04:30 04:30 WBC 11.1 H RBC 2.84 L Hgb 9.5 L Hct 26.6 L MCV 93.7 MCH 33.5 MCHC 35.7 RDW 15.3 H Plt Count 252 MPV 8.7 pCO2 pO2 HCO3 ABG pH ABG Total CO2 ABG O2 Saturation ABG O2 Content ABG Base Excess ABG Hemoglobin ABG Carboxyhemoglobin POC ABG HHb (Measured) ABG Methemoglobin ABG O2 Capacity ABG Potassium Hgb O2 Saturation Glucose Lactate FiO2 Sodium 136 Potassium 3.6 Chloride 109 Carbon Dioxide 20 L Anion Gap 11 BUN 62 H Creatinine 1.5 Est GFR ( Amer) 55 Est GFR (Non-Af Amer) 46 Random Glucose 95 Calcium 7.7 L Phosphorus Magnesium Total Bilirubin 0.9 AST 329 H D ALT 269 H Alkaline Phosphatase 45 Total Protein 4.7 L Albumin 2.4 L Globulin 2.3 Albumin/Globulin Ratio 1.0 L Procalcitonin Arterial Blood Potassium Urine Color Yellow Urine Appearance Sl cloudy Urine pH 5.5 Ur Specific [place] 1.010 Urine Protein Trace H Urine Glucose (UA) Negative Urine Ketones Negative Urine Blood Moderate H Urine Nitrate Negative Urine Bilirubin Negative Urine Urobilinogen 0.2 Ur Leukocyte Esterase Small H Urine RBC 2 - 5 Urine WBC 1 - 3 Ur Epithelial Cells 0 - 2 Amorphous Sediment Few Urine Bacteria Occ Hyaline Casts 0 - 2 Urine Osmolality Ur Random Sodium Crossmatch 05/05/17 05/05/17 05/05/17 04:30 06:07 08:40 WBC 13.6 H D RBC 2.81 L Hgb 9.4 L Hct 26.4 L MCV 94.0 MCH 33.5 MCHC 35.6 RDW 15.5 H Plt Count 244 MPV 8.6 pCO2 32 L pO2 67.0 L HCO3 18.1 L ABG pH 7.36 ABG Total CO2 19.1 L ABG O2 Saturation 96.5 ABG O2 Content 11.3 L ABG Base Excess -6.6 L ABG Hemoglobin 8.6 L ABG Carboxyhemoglobin 2.4 H POC ABG HHb (Measured) 3.4 ABG Methemoglobin 1.2 ABG O2 Capacity 11.7 L ABG Potassium Hgb O2 Saturation 92.9 L Glucose Lactate FiO2 40.0 Sodium Potassium Chloride Carbon Dioxide Anion Gap BUN Creatinine Est GFR ( Amer) Est GFR (Non-Af Amer) Random Glucose Calcium Phosphorus Magnesium 1.8 Total Bilirubin AST ALT Alkaline Phosphatase Total Protein Albumin Globulin Albumin/Globulin Ratio Procalcitonin Arterial Blood Potassium Urine Color Urine Appearance Urine pH Ur Specific [place] Urine Protein Urine Glucose (UA) Urine Ketones Urine Blood Urine Nitrate Urine Bilirubin Urine Urobilinogen Ur Leukocyte Esterase Urine RBC Urine WBC Ur Epithelial Cells Amorphous Sediment Urine Bacteria Hyaline Casts Urine Osmolality Ur Random Sodium Crossmatch 05/05/17 11:12 WBC RBC Hgb Hct MCV MCH MCHC RDW Plt Count MPV pCO2 pO2 HCO3 ABG pH ABG Total CO2 ABG O2 Saturation ABG O2 Content ABG Base Excess ABG Hemoglobin ABG Carboxyhemoglobin POC ABG HHb (Measured) ABG Methemoglobin ABG O2 Capacity ABG Potassium Hgb O2 Saturation Glucose Lactate FiO2 Sodium Potassium Chloride Carbon Dioxide Anion Gap BUN Creatinine Est GFR ( Amer) Est GFR (Non-Af Amer) Random Glucose Calcium Phosphorus Magnesium Total Bilirubin AST ALT Alkaline Phosphatase Total Protein Albumin Globulin Albumin/Globulin Ratio Procalcitonin 2.34 H Arterial Blood Potassium Urine Color Urine Appearance Urine pH Ur Specific [place] Urine Protein Urine Glucose (UA) Urine Ketones Urine Blood Urine Nitrate Urine Bilirubin Urine Urobilinogen Ur Leukocyte Esterase Urine RBC Urine WBC Ur Epithelial Cells Amorphous Sediment Urine Bacteria Hyaline Casts Urine Osmolality Ur Random Sodium Crossmatch Critical Care Progress Note - Nutrition Nutrition: Nutrition Category Date Time Status NPO Diet [DIET] Diets 05/04/17 Breakfast Ordered Attending/Attestation - Attestation I have personally seen and examined this patient.: Yes I have fully participated in the care of the patient.: Yes I have reviewed all pertinent clinical information: Yes Notes (Text): 05/05/17 18:22 77 y/o M s/p Ex-Lap for perforated ulcer. Post op failed extubation. Re-intubated. Seen to have shallow breaths likely due to pain and diaphragm movement. On Empiric abx , cx pending. No further signs of shock. IV fluids given. Vent settings to keep pao2> 60 and PH> 7.3. Wound site followed by surgery team. Monitor electrolytes. Plan for possible extubation in the morning. cc time 55 min
--- NOTE | 2017-05-05 11:14 | CP.PCM.PN ---
<Ana Freeman - Last Filed: 05/05/17 11:15> Subjective - Date & Time of Evaluation Date of Evaluation: 05/05/17 Time of Evaluation: 09:45 - Subjective Subjective: Seen and examined at the bedside earlier this morning, the patient is postop day #1 found to have a perforated gastric ulcer and had laparotomy with wedge resection of gastric ulcer. The patient is intubated but is awake and responsive, he has an NG tube draining to suction with dark black secretions. No reports of fever or chills. Objective - Vital Signs/Intake and Output Vital Signs (last 24 hours): Temp Pulse Resp BP Pulse Ox 98.8 F 88 24 100/46 L 96 05/05/17 05:36 05/05/17 05:36 05/05/17 05:36 05/05/17 05:00 05/05/17 05:36 Intake and Output: 05/05/17 05/05/17 06:59 18:59 Intake Total 2657 70 Output Total 420 Balance 2237 70 - Medications Medications: Current Medications Amlodipine Besylate (Norvasc) 10 mg PO DAILY [facility] Last Admin: 05/03/17 10:25 Dose: Not Given Atorvastatin Calcium (Lipitor) 40 mg PO DIN [facility] Last Admin: 05/04/17 18:11 Dose: Not Given Chlorhexidine Gluconate (Peridex) 15 ml PO BID [facility] Hydralazine HCl (Apresoline) 10 mg IVP Q6 PRN PRN Reason: SBP> 160 Last Admin: 05/04/17 17:42 Dose: 10 mg Pantoprazole Sodium (Protonix 40mg Ivpb) 40 mg in 100 mls @ 20 mls/hr IVPB .Q5H [facility] Last Admin: 05/05/17 10:07 Dose: 20 mls/hr Sodium Chloride (Sodium Chloride 0.9%) 1,000 mls @ 100 mls/hr IV .Q10H [facility] Last Admin: 05/05/17 05:00 Dose: 100 mls/hr NOREPINEPHRINE BIT/0.9 % NACL (Levophed 4 Mg/ 250 Ml Ns Premixed) 4 mg in 250 mls @ 15 mls/hr IV .[id number] PRN; Protocol; 4 MCG/MIN PRN Reason: TITRATE PER MD ORDER Last Titration: 05/05/17 00:05 Dose: 0 mcg/min, 0 mls/hr Fentanyl Citrate (Fentanyl Citrate/Sodium Chloride 1 Mg/100 Ml) 1,000 mcg in 100 mls @ 2 mls/hr IV .Q24H [facility] PRN Reason: Protocol Last Admin: 05/05/17 08:17 Dose: 7 ml/hr, 7 mls/hr Meropenem 1g/NS 100mL IVPB (Meropenem 1g/Ns 100ml Ivpb) 1 gm in 100 mls @ 100 mls/hr IVPB Q12 [facility] PRN Reason: Protocol Stop: 05/13/17 10:16 Last Admin: 05/05/17 10:45 Dose: 100 mls/hr Potassium Chloride (Potassium Chloride 10 Meq/100 Ml) 10 meq in 100 mls @ 100 mls/hr IVPB Q2H [facility] Stop: 05/05/17 13:29 Last Admin: 05/05/17 10:46 Dose: 100 mls/hr Lisinopril (Zestril) 10 mg PO DAILY [facility] Last Admin: 05/05/17 09:50 Dose: Not Given Metoprolol Tartrate (Lopressor) 25 mg PO BID [facility] Last Admin: 05/04/17 18:11 Dose: Not Given Metoprolol Tartrate (Lopressor) 5 mg IVP Q8H PRN PRN Reason: Systolic Blood Pressure Midazolam HCl (Versed Inj) 4 mg IVP Q4H PRN PRN Reason: Agitation Last Admin: 05/05/17 02:50 Dose: 4 mg Nitroglycerin (Nitro-Bid 2% Oint) 1 ea TOP 0000,0600,1200,1800 [facility] Last Admin: 05/05/17 05:11 Dose: Not Given - Labs Labs: 05/05/17 08:40 05/05/17 04:30 PT 11.2 Seconds (9.9-11.8) 04/30/17 12:40 INR 1.04 (0.93-1.08) 04/30/17 12:40 APTT 26.8 Seconds (23.7-30.8) 04/30/17 12:40 - Constitutional Appears: No Acute Distress - Head Exam Head Exam: NORMOCEPHALIC - Eye Exam Eye Exam: Normal appearance. absent: Scleral icterus - ENT Exam ENT Exam: Mucous Membranes Moist Additional comments: intubated - Neck Exam Neck Exam: Normal Inspection - Respiratory Exam Respiratory Exam: Decreased Breath Sounds, NORMAL BREATHING PATTERN. absent: Rales, Wheezes, Respiratory Distress - Cardiovascular Exam Cardiovascular Exam: +S1, +S2 - GI/Abdominal Exam GI & Abdominal Exam: Soft Additional comments: surgical abdominal dressing is dry and intact, MAX present Right quaderant with bloody drain noted - Extremities Exam Extremities Exam: Normal Capillary Refill. absent: Calf Tenderness, Pedal Edema - Neurological Exam Neurological Exam: Awake - Skin Skin Exam: Dry, Warm Assessment and Plan - Assessment and Plan (Free Text) Assessment: Assessment: GI bleed, found to have perforated gastric ulcer,s/p gastric wedge ulcer h/o chronic alcohol use Anemia, s/p blood transfusion Elevated LFT, differential to consider is shock liver, patient noted to have episodes of hypotension,lfts were normal values since admission, consider medication induced Status post fall S/P Hyponatremia NSTEMI COPD H/O Colon polyps PLAN: NPO, continue IVF continue Protonix drip anticoagulant currently on hold SCD to lower extremities monitor h/h, Transfuse as necessary trend LFT hepatitis panel as per surgery, icu team Seen and discussed with Dr. Lemus. <Matthew Lemus V - Last Filed: 05/05/17 20:06> Objective - Vital Signs/Intake and Output Vital Signs (last 24 hours): Temp Pulse Resp BP Pulse Ox 98.2 F 86 10 L 101/44 L 96 05/05/17 18:00 05/05/17 18:00 05/05/17 15:45 05/05/17 15:45 05/05/17 15:45 Intake and Output: 05/05/17 05/06/17 18:59 06:59 Intake Total 148 Output Total 895 200 Balance -747 -200 - Medications Medications: Current Medications Amlodipine Besylate (Norvasc) 10 mg PO DAILY [facility] Last Admin: 05/03/17 10:25 Dose: Not Given Atorvastatin Calcium (Lipitor) 40 mg PO DIN [facility] Last Admin: 05/05/17 17:13 Dose: Not Given Chlorhexidine Gluconate (Peridex) 15 ml PO BID [facility] Last Admin: 05/05/17 17:14 Dose: 15 ml Hydralazine HCl (Apresoline) 10 mg IVP Q6 PRN PRN Reason: SBP> 160 Last Admin: 05/04/17 17:42 Dose: 10 mg Sodium Chloride (Sodium Chloride 0.9%) 1,000 mls @ 100 mls/hr IV .Q10H [facility] Last Admin: 05/05/17 17:19 Dose: 100 mls/hr NOREPINEPHRINE BIT/0.9 % NACL (Levophed 4 Mg/ 250 Ml Ns Premixed) 4 mg in 250 mls @ 15 mls/hr IV .[id number] PRN; Protocol; 4 MCG/MIN PRN Reason: TITRATE PER MD ORDER Last Titration: 05/05/17 00:05 Dose: 0 mcg/min, 0 mls/hr Fentanyl Citrate (Fentanyl Citrate/Sodium Chloride 1 Mg/100 Ml) 1,000 mcg in 100 mls @ 2 mls/hr IV .Q24H [facility] PRN Reason: Protocol Last Titration: 05/05/17 18:34 Dose: 5 ml/hr, 5 mls/hr Meropenem 1g/NS 100mL IVPB (Meropenem 1g/Ns 100ml Ivpb) 1 gm in 100 mls @ 100 mls/hr IVPB Q12 [facility] PRN Reason: Protocol Stop: 05/13/17 10:16 Last Admin: 05/05/17 10:45 Dose: 100 mls/hr Lisinopril (Zestril) 10 mg PO DAILY [facility] Last Admin: 05/05/17 09:50 Dose: Not Given Metoprolol Tartrate (Lopressor) 25 mg PO BID [facility] Last Admin: 05/04/17 18:11 Dose: Not Given Metoprolol Tartrate (Lopressor) 5 mg IVP Q8H PRN PRN Reason: Systolic Blood Pressure Midazolam HCl (Versed Inj) 4 mg IVP Q4H PRN PRN Reason: Agitation Last Admin: 05/05/17 17:58 Dose: 4 mg Nitroglycerin (Nitro-Bid 2% Oint) 1 ea TOP 0000,0600,1200,1800 [facility] Last Admin: 05/05/17 18:25 Dose: 1 ea Pantoprazole Sodium (Protonix Inj) 40 mg IVP Q12 [facility] - Labs Labs: 05/05/17 08:40 05/05/17 04:30 PT 11.2 Seconds (9.9-11.8) 04/30/17 12:40 INR 1.04 (0.93-1.08) 04/30/17 12:40 APTT 26.8 Seconds (23.7-30.8) 04/30/17 12:40 Attending/Attestation - Attestation I have personally seen and examined this patient.: Yes I have fully participated in the care of the patient.: Yes I have reviewed all pertinent clinical information, including history, physical exam and plan: Yes Notes (Text): This is an addendum to GI progress report dictated by Ana Freeman APN.The patient was seen and examined earlier. Medical records, lab studies, imagings were reviewed. Last 24 hours events reviewed. Agreed with the above treatment plan as outlined in Ana Freeman APN's notes with the with the addition of the following NG tube is draining bilious fluid We will discontinue Protonix drip and change to IV push every 12 hours Follow-up of the LFTs would request [facility] 05/05/17 20:03
--- NOTE | 2017-05-05 13:24 | CP.PCM.PN ---
<Lily Bennett - Last Filed: 05/05/17 13:24> Subjective - Date & Time of Evaluation Date of Evaluation: 05/05/17 Time of Evaluation: 09:00 - Subjective Subjective: PGY-[address] Bowser Patient seen and examined at bedside in ICU. Patient is currently intubated on sedation. Yesterday patient went to OR for exploratory lap found to have perforated gastric ulcer. Objective - Vital Signs/Intake and Output Vital Signs (last 24 hours): Temp Pulse Resp BP Pulse Ox 98.7 F 86 24 100/46 L 96 05/05/17 12:00 05/05/17 10:00 05/05/17 05:36 05/05/17 05:00 05/05/17 05:36 Intake and Output: 05/05/17 05/05/17 06:59 18:59 Intake Total 2657 70 Output Total 420 40 Balance 2237 30 - Medications Medications: Current Medications Amlodipine Besylate (Norvasc) 10 mg PO DAILY [facility] Last Admin: 05/03/17 10:25 Dose: Not Given Atorvastatin Calcium (Lipitor) 40 mg PO DIN [facility] Last Admin: 05/04/17 18:11 Dose: Not Given Chlorhexidine Gluconate (Peridex) 15 ml PO BID [facility] Hydralazine HCl (Apresoline) 10 mg IVP Q6 PRN PRN Reason: SBP> 160 Last Admin: 05/04/17 17:42 Dose: 10 mg Pantoprazole Sodium (Protonix 40mg Ivpb) 40 mg in 100 mls @ 20 mls/hr IVPB .Q5H [facility] Last Admin: 05/05/17 10:07 Dose: 20 mls/hr Sodium Chloride (Sodium Chloride 0.9%) 1,000 mls @ 100 mls/hr IV .Q10H [facility] Last Admin: 05/05/17 05:00 Dose: 100 mls/hr NOREPINEPHRINE BIT/0.9 % NACL (Levophed 4 Mg/ 250 Ml Ns Premixed) 4 mg in 250 mls @ 15 mls/hr IV .[id number] PRN; Protocol; 4 MCG/MIN PRN Reason: TITRATE PER MD ORDER Last Titration: 05/05/17 00:05 Dose: 0 mcg/min, 0 mls/hr Fentanyl Citrate (Fentanyl Citrate/Sodium Chloride 1 Mg/100 Ml) 1,000 mcg in 100 mls @ 2 mls/hr IV .Q24H SILVIA PRN Reason: Protocol Last Admin: 05/05/17 08:17 Dose: 7 ml/hr, 7 mls/hr Meropenem 1g/NS 100mL IVPB (Meropenem 1g/Ns 100ml Ivpb) 1 gm in 100 mls @ 100 mls/hr IVPB Q12 SIL[facility]IA PRN Reason: Protocol Stop: 05/13/17 10:16 Last Admin: 05/05/17 10:45 Dose: 100 mls/hr Potassium Chloride (Potassium Chloride 10 Meq/100 Ml) 10 meq in 100 mls @ 100 mls/hr IVPB Q2H [facility] Stop: 05/05/17 13:29 Last Admin: 05/05/17 10:46 Dose: 100 mls/hr Lisinopril (Zestril) 10 mg PO DAILY [facility] Last Admin: 05/05/17 09:50 Dose: Not Given Metoprolol Tartrate (Lopressor) 25 mg PO BID [facility] Last Admin: 05/04/17 18:11 Dose: Not Given Metoprolol Tartrate (Lopressor) 5 mg IVP Q8H PRN PRN Reason: Systolic Blood Pressure Midazolam HCl (Versed Inj) 4 mg IVP Q4H PRN PRN Reason: Agitation Last Admin: 05/05/17 02:50 Dose: 4 mg Nitroglycerin (Nitro-Bid 2% Oint) 1 ea TOP 0000,0600,1200,1800 [facility] Last Admin: 05/05/17 05:11 Dose: Not Given - Labs Labs: 05/05/17 08:40 05/05/17 04:30 PT 11.2 Seconds (9.9-11.8) 04/30/17 12:40 INR 1.04 (0.93-1.08) 04/30/17 12:40 APTT 26.8 Seconds (23.7-30.8) 04/30/17 12:40 - Constitutional Appears: No Acute Distress - Head Exam Head Exam: ATRAUMATIC, NORMOCEPHALIC - Eye Exam Eye Exam: EOMI, Normal appearance - ENT Exam Additional comments: intubated - Respiratory Exam Respiratory Exam: Decreased Breath Sounds (bilateral bases), Rhonchi (diffuse). absent: Wheezes - Cardiovascular Exam Cardiovascular Exam: REGULAR RHYTHM, +S1, +S2. absent: Tachycardia, Murmur - GI/Abdominal Exam GI & Abdominal Exam: Firm, Normal Bowel Sounds. absent: Distended, Guarding Additional comments: dressing intact, clean and dry - Extremities Exam Extremities Exam: Normal Inspection. absent: Pedal Edema, Tenderness - Skin Skin Exam: Dry, Intact, Normal Color, Warm Assessment and Plan - Assessment and Plan (Free Text) Assessment: 77 yo male with no significant PMH initially presented with hyponatremia, hypokalemia, NSTEMI, s/p fall. Patient's found to have acute anemia due to blood loss from perforated gastric ulcer, patient went to surgery. Patient had to be intubated due to impending respiratory failure. Patient became hypotensive yesterday evening and was started on pressers, patient's BP has improved, pressers were stopped Plan: 1. acute anemia due to blood loss from perforated gastric ulcer - AM labs reviewed, Hgb 9.5 after 2 units pRBC - positive stool occult - CT abd/ pel without PO/IV contrast reviewed showed free air with perforation ( refer to full report) - cont protonix drip - started meropenem - NPO - cont IVF NS at 100cc/ho - GI and surgery following 2. intubated due to respiratory failure - patient is sedated and intubated on PRVC - CT chest showed moderate size pleural effusions left greater than right, minimal bibasilar consolidation adjacent to effusions, minimal right upper lobe interstitial infiltrates - abx, meropenem started - ID consulted for sepsis 3. NSTEMI - trop downtrending - Echo on 05/01 showed mild concentric left ventricular hypertrophy, EF-55%, Mitral regurgitation is mild to moderate, mild tricuspid regurgitation, no pericardial effusion. - patient was scheduled for cath, however was postponed due to GI bleed - asa and plavix stopped - cont topical nitroglycerin - metoprolol, Lipitor 4. elevated LFTs - most likely due to hypotension, shocked liver - hepatitis panel ordered - GI following - cont to monitor LFTs 5. severe hyponatremia and hypokalemia - labs reviewed, Na and K improving - most likely hypotonic, hypovolemic hyponatremia - cont IVF NS at 100cc/ho 6. increase in creatinine - most likely pre-renal - cont IVF NS@100cc - cont to monitor 7. s/p fall - CT head showed No intracranial mass, hemorrhage or evidence of acute infarct. - CT chest showed No evidence of lung mass, Vertebral fracture of T8, Multiple left-sided rib fractures with a moderate size left pleural effusion. - pain control 8. HTN - patient had episode of hypotension - BP meds placed on hold due to hypotension <Jarocho Bowser - Last Filed: 05/05/17 18:13> Objective - Vital Signs/Intake and Output Vital Signs (last 24 hours): Temp Pulse Resp BP Pulse Ox 98.7 F 84 10 L 101/44 L 96 05/05/17 12:00 05/05/17 15:45 05/05/17 15:45 05/05/17 15:45 05/05/17 15:45 Intake and Output: 05/05/17 05/05/17 06:59 18:59 Intake Total 2657 70 Output Total 420 40 Balance 2237 30 - Medications Medications: Current Medications Amlodipine Besylate (Norvasc) 10 mg PO DAILY [facility] Last Admin: 05/03/17 10:25 Dose: Not Given Atorvastatin Calcium (Lipitor) 40 mg PO DIN [facility] Last Admin: 05/05/17 17:13 Dose: Not Given Chlorhexidine Gluconate (Peridex) 15 ml PO BID [facility] Last Admin: 05/05/17 17:14 Dose: 15 ml Hydralazine HCl (Apresoline) 10 mg IVP Q6 PRN PRN Reason: SBP> 160 Last Admin: 05/04/17 17:42 Dose: 10 mg Pantoprazole Sodium (Protonix 40mg Ivpb) 40 mg in 100 mls @ 20 mls/hr IVPB .Q5H [facility] Last Admin: 05/05/17 15:44 Dose: 20 mls/hr Sodium Chloride (Sodium Chloride 0.9%) 1,000 mls @ 100 mls/hr IV .Q10H [facility] Last Admin: 05/05/17 17:19 Dose: 100 mls/hr NOREPINEPHRINE BIT/0.9 % NACL (Levophed 4 Mg/ 250 Ml Ns Premixed) 4 mg in 250 mls @ 15 mls/hr IV .[id number] PRN; Protocol; 4 MCG/MIN PRN Reason: TITRATE PER MD ORDER Last Titration: 05/05/17 00:05 Dose: 0 mcg/min, 0 mls/hr Fentanyl Citrate (Fentanyl Citrate/Sodium Chloride 1 Mg/100 Ml) 1,000 mcg in 100 mls @ 2 mls/hr IV .Q24H [facility]IL[facility]IA PRN Reason: Protocol Last Admin: 05/05/17 08:17 Dose: 7 ml/hr, 7 mls/hr Meropenem 1g/NS 100mL IVPB (Meropenem 1g/Ns 100ml Ivpb) 1 gm in 100 mls @ 100 mls/hr IVPB Q12 SILVIA PRN Reason: Protocol Stop: 05/13/17 10:16 Last Admin: 05/05/17 10:45 Dose: 100 mls/hr Lisinopril (Zestril) 10 mg PO DAILY [facility] Last Admin: 05/05/17 09:50 Dose: Not Given Metoprolol Tartrate (Lopressor) 25 mg PO BID [facility] Last Admin: 05/04/17 18:11 Dose: Not Given Metoprolol Tartrate (Lopressor) 5 mg IVP Q8H PRN PRN Reason: Systolic Blood Pressure Midazolam HCl (Versed Inj) 4 mg IVP Q4H PRN PRN Reason: Agitation Last Admin: 05/05/17 17:58 Dose: 4 mg Nitroglycerin (Nitro-Bid 2% Oint) 1 ea TOP 0000,0600,1200,1800 [facility] Last Admin: 05/05/17 13:41 Dose: 1 ea - Labs Labs: 05/05/17 08:40 05/05/17 04:30 PT 11.2 Seconds (9.9-11.8) 04/30/17 12:40 INR 1.04 (0.93-1.08) 04/30/17 12:40 APTT 26.8 Seconds (23.7-30.8) 04/30/17 12:40 Assessment and Plan - Assessment and Plan (Free Text) Plan: Pt seen and examined. Above note of resident reviewed and agree with above note. Meds and labs reviewed. Pt with gastric perforation. On Vent due to resp failure. Cont IVF, Cr elevalated. JADEN. BP improved. CT reviewed. Acute anemia is due to blood loss.
[2017-05-05] MEDS: Chlorhexidine 0.12% Oral Sol 480 ml Bot PO SCH ×2 (13:41→17:14)
--- NOTE | 2017-05-05 14:49 | PN ---
DATE: 05/05/2017 REASON FOR CONSULTATION AND FOLLOWUP: Non-ST segment myocardial infarction, status post gastric perforation, status post exploratory laparotomy, wedge resection of the stomach, GI bleed preop. SUBJECTIVE: The patient remains on the vent intubated. OBJECTIVE: VITAL SIGNS: Temperature afebrile, heart rate 88, blood pressure 100/46. HEENT: PERRLA. Extraocular muscles intact. NECK: Supple. No carotid bruits or thyromegaly. CHEST: Clear to auscultation. HEART: S1 and S2 regular. ABDOMEN: Soft. EXTREMITIES: Clubbing and cyanosis negative. LABORATORY DATA: Blood workup as follows: WBC 13.8, hemoglobin 9.4, hematocrit 26.4, platelet count 244. Chemistry shows sodium 130, potassium 3.6, chloride 109, carbon dioxide of 20, anion gap of 11, BUN 16, creatinine 1.5. AST 329, ALT 269, total protein 4.7, albumin 2.4, albumin-globulin ratio 1. ASSESSMENT: Status post acute abdomen, status post perforation of the hollow viscus, status post exploratory laparotomy, and wedge resection of the stomach, excision of diverticulum of transverse colon, status post perforation, status post gastrointestinal bleed, black tarry stool, dropped hemoglobin, status post non-ST segment myocardial infarction prior to exploratory laparotomy, hyponatremia, more than 3% saline. RECOMMENDATIONS: Continue . Continue vent management. Followup postop. We will closely follow up. So far, the patient is hemodynamically stable. H and H is stable. We will supplement potassium and monitor closely. Discussed with Dr. Bowser. Supa Nick MD cc: Jarocho Bowser MD
--- NOTE | 2017-05-05 14:55 | CP.PCM.PN ---
Subjective - Date & Time of Evaluation Date of Evaluation: 05/05/17 Time of Evaluation: 07:15 - Subjective Subjective: General Surgery Progress Note for Dr. Mccrary Patient seen and examined this AM. No acute event overnight. Patient is intubated and on vent support. He is sedated. ROS unobtainable. Objective - Vital Signs/Intake and Output Vital Signs (last 24 hours): Temp Pulse Resp BP Pulse Ox 98.7 F 86 24 100/46 L 96 05/05/17 12:00 05/05/17 10:00 05/05/17 05:36 05/05/17 05:00 05/05/17 05:36 Intake and Output: 05/05/17 05/05/17 06:59 18:59 Intake Total 2657 70 Output Total 420 40 Balance 2237 30 - Medications Medications: Current Medications Amlodipine Besylate (Norvasc) 10 mg PO DAILY [facility] Last Admin: 05/03/17 10:25 Dose: Not Given Atorvastatin Calcium (Lipitor) 40 mg PO DIN [facility] Last Admin: 05/04/17 18:11 Dose: Not Given Chlorhexidine Gluconate (Peridex) 15 ml PO BID [facility] Last Admin: 05/05/17 13:41 Dose: 15 ml Hydralazine HCl (Apresoline) 10 mg IVP Q6 PRN PRN Reason: SBP> 160 Last Admin: 05/04/17 17:42 Dose: 10 mg Pantoprazole Sodium (Protonix 40mg Ivpb) 40 mg in 100 mls @ 20 mls/hr IVPB .Q5H [facility] Last Admin: 05/05/17 10:07 Dose: 20 mls/hr Sodium Chloride (Sodium Chloride 0.9%) 1,000 mls @ 100 mls/hr IV .Q10H [facility] Last Admin: 05/05/17 05:00 Dose: 100 mls/hr NOREPINEPHRINE BIT/0.9 % NACL (Levophed 4 Mg/ 250 Ml Ns Premixed) 4 mg in 250 mls @ 15 mls/hr IV .[id number] PRN; Protocol; 4 MCG/MIN PRN Reason: TITRATE PER MD ORDER Last Titration: 05/05/17 00:05 Dose: 0 mcg/min, 0 mls/hr Fentanyl Citrate (Fentanyl Citrate/Sodium Chloride 1 Mg/100 Ml) 1,000 mcg in 100 mls @ 2 mls/hr IV .Q24H [facility] PRN Reason: Protocol Last Admin: 05/05/17 08:17 Dose: 7 ml/hr, 7 mls/hr Meropenem 1g/NS 100mL IVPB (Meropenem 1g/Ns 100ml Ivpb) 1 gm in 100 mls @ 100 mls/hr IVPB Q12 SILVIA PRN Reason: Protocol Stop: 05/13/17 10:16 Last Admin: 05/05/17 10:45 Dose: 100 mls/hr Lisinopril (Zestril) 10 mg PO DAILY [facility] Last Admin: 05/05/17 09:50 Dose: Not Given Metoprolol Tartrate (Lopressor) 25 mg PO BID [facility] Last Admin: 05/04/17 18:11 Dose: Not Given Metoprolol Tartrate (Lopressor) 5 mg IVP Q8H PRN PRN Reason: Systolic Blood Pressure Midazolam HCl (Versed Inj) 4 mg IVP Q4H PRN PRN Reason: Agitation Last Admin: 05/05/17 02:50 Dose: 4 mg Nitroglycerin (Nitro-Bid 2% Oint) 1 ea TOP 0000,0600,1200,1800 [facility] Last Admin: 05/05/17 13:41 Dose: 1 ea - Labs Labs: 05/05/17 08:40 05/05/17 04:30 PT 11.2 Seconds (9.9-11.8) 04/30/17 12:40 INR 1.04 (0.93-1.08) 04/30/17 12:40 APTT 26.8 Seconds (23.7-30.8) 04/30/17 12:40 - Constitutional Appears: No Acute Distress, Other (intubated and sedated) - Head Exam Head Exam: ATRAUMATIC, NORMOCEPHALIC - Eye Exam Eye Exam: Normal appearance - ENT Exam ENT Exam: Mucous Membranes Moist - Respiratory Exam Respiratory Exam: NORMAL BREATHING PATTERN - Cardiovascular Exam Cardiovascular Exam: REGULAR RHYTHM - GI/Abdominal Exam GI & Abdominal Exam: Soft. absent: Distended, Tenderness - Neurological Exam Neurological Exam: Altered - Psychiatric Exam Psychiatric exam: Flat Affect - Skin Skin Exam: Dry, Warm Assessment and Plan - Assessment and Plan (Free Text) Plan: 77 M s/p Exploratory laparotomy and Gastric wedge resection for perforated gastric ulcer/pneumoperitoneum -Continue IV abx -Iv fluids -Monitor Hgb -Management as per ICU -DW Dr. Renae Marin PGY1
--- NOTE | 2017-05-05 18:14 | OP ---
PROCEDURE DATE: 05/04/2017 PROCEDURE: Endotracheal intubation. INDICATION: Postoperative respiratory failure. DESCRIPTION OF PROCEDURE: The patient was pre-oxygenated with 100% FiO2 via Ambu bag. Vital signs were monitored throughout the procedure and blood pressure was cycled every one minute. Two liters of normal saline started wide open to optimize cardiopulmonary status christie procedure. The patient was sedated with 7 mL of propofol. Direct laryngoscopy performed with MAC 3 curve blade. Vocal cords identified and trachea intubated with 7.5-Syriac endotracheal tube. Cuff inflated. Stylette removed. Position of the endotracheal tube confirmed with gastric and bilateral lung auscultation as well as change in the color of end-tidal CO2 gauge after 8 respiratory cycles. Chest x-ray confirmed correct position of the endotracheal tube. Protective ventilation strategy employed. Giovanni Huang MD MTDD
[2017-05-06] MEDS: Sodium Chloride 0.9% 1,000 ML IV SCH (02:00)
[2017-05-06] MEDS: Midazolam 2 MG/2 ML VIAL IVP PRN (04:40)
[2017-05-06] MEDS: Nitroglycerin 2% Ointment Foilpak UD TOP SCH ×4 (04:51→19:57)
[2017-05-06 04:52] LABS: BASO # 0.01 K/mm3 (0.0-2.0); BASO % 0.1 % (0.0-3.0); EOS % 0.1 % (1.5-5.0); GRAN # 15.58 (1.4-6.5); GRAN % 87.3 % (50.0-68.0); HEMATOCRIT 26.5 % (42.0-52.0); LYMPH # 0.9 (1.2-3.4); LYMPH % 5.2 % (22.0-35.0); MEAN CORPUSCULAR HEMOGLOBIN 33.7 pg (25.0-35.0); MEAN CORPUSCULAR HGB CONC 35.1 g/dl (31.0-37.0); MEAN PLATELET VOLUME 8.6 fl (7.0-11.0); MONO # 1.3 (0.1-0.6); MONO % 7.3 % (1.0-6.0)
[2017-05-06 05:04] LABS: INR 1.14 (0.93-1.08); PARTIAL THROMBOPLASTIN TIME 32.9 Seconds (23.7-30.8)
[2017-05-06 05:06] LABS: ALB/GLOB RATIO 0.9 (1.1-1.8); BILIRUBIN,TOTAL 0.6 mg/dL (0.2-1.3); PHOSPHOROUS 4.5 mg/dL (2.5-4.5); POTASSIUM 4.3 mmol/L (3.6-5.0)
[2017-05-06 05:31] LABS: ARTERIAL BLOOD GAS O2 CAPACITY 11.8 mL/dl (16-24); ARTERIAL BLOOD GAS O2 CONTENT 11.6 ML/dl (15-23); ARTERIAL BLOOD GAS PH 7.35 (7.35-7.45); ARTERIAL BLOOD HGB O2 SAT 95.1 % (95.0-98.0); CARBOXYHEMOGLOBIN 2.3 % (0.5-1.5); HHB 1.4 % (0-5); METHEMOGLOBIN 1.3 % (0.0-3.0)
[2017-05-06 06:23] LABS: WHITE BLOOD COUNT 17.8 10^3/ul (4.5-11.0)
--- NOTE | 2017-05-06 09:05 | RAD ---
HISTORY: ventilator COMPARISON: 05/05/2017 FINDINGS: LUNGS: There is an increasing hazy infiltrate at the right lung base. There is also an infiltrate at the left lung base that obscures the diaphragmatic border. PLEURA: No significant pleural effusion identified, no pneumothorax apparent. CARDIOVASCULAR: Mild cardiomegaly OSSEOUS STRUCTURES: No significant abnormalities. VISUALIZED UPPER ABDOMEN: Normal. OTHER FINDINGS: Endotracheal and nasogastric tubes in satisfactory position IMPRESSION: Bibasilar infiltrates
--- NOTE | 2017-05-06 09:21 | CP.PCM.PN ---
Subjective - Date & Time of Evaluation Date of Evaluation: 05/06/17 Time of Evaluation: 07:00 - Subjective Subjective: General Surgery Progress Note for Dr. Mccrary Patient seen and examined this AM. He is s/p ex lap with gastric wedge resection. Patient going into Afib with RVR. Amiodarone drip was started. Patient failed extubation initially postop. Patient still intubated and on vent support. He is sedated. ROS unobtainable. Objective - Vital Signs/Intake and Output Vital Signs (last 24 hours): Temp Pulse Resp BP Pulse Ox 98.4 F 128 H 22 95/38 L 100 05/06/17 06:00 05/06/17 08:40 05/06/17 07:58 05/06/17 08:40 05/06/17 07:58 Intake and Output: 05/06/17 05/06/17 06:59 18:59 Intake Total 1322 Output Total 1120 Balance 202 - Medications Medications: Current Medications Amlodipine Besylate (Norvasc) 10 mg PO DAILY [facility] Last Admin: 05/03/17 10:25 Dose: Not Given Atorvastatin Calcium (Lipitor) 40 mg PO DIN [facility] Last Admin: 05/05/17 17:13 Dose: Not Given Chlorhexidine Gluconate (Peridex) 15 ml PO BID [facility] Last Admin: 05/05/17 17:14 Dose: 15 ml Hydralazine HCl (Apresoline) 10 mg IVP Q6 PRN PRN Reason: SBP> 160 Last Admin: 05/04/17 17:42 Dose: 10 mg NOREPINEPHRINE BIT/0.9 % NACL (Levophed 4 Mg/ 250 Ml Ns Premixed) 4 mg in 250 mls @ 15 mls/hr IV .[id number] PRN; Protocol; 4 MCG/MIN PRN Reason: TITRATE PER MD ORDER Last Titration: 05/05/17 00:05 Dose: 0 mcg/min, 0 mls/hr Fentanyl Citrate (Fentanyl Citrate/Sodium Chloride 1 Mg/100 Ml) 1,000 mcg in 100 mls @ 2 mls/hr IV .Q24H [facility]IL[facility]IA PRN Reason: Protocol Last Titration: 05/06/17 05:00 Dose: 3 ml/hr, 3 mls/hr Meropenem 1g/NS 100mL IVPB (Meropenem 1g/Ns 100ml Ivpb) 1 gm in 100 mls @ 100 mls/hr IVPB Q12 SILVIA PRN Reason: Protocol Stop: 05/13/17 10:16 Last Admin: 05/05/17 10:45 Dose: 100 mls/hr Lisinopril (Zestril) 10 mg PO DAILY [facility] Last Admin: 05/05/17 09:50 Dose: Not Given Metoprolol Tartrate (Lopressor) 25 mg PO BID [facility] Last Admin: 05/04/17 18:11 Dose: Not Given Metoprolol Tartrate (Lopressor) 5 mg IVP Q8H PRN PRN Reason: Systolic Blood Pressure Last Admin: 05/06/17 06:00 Dose: 5 mg Midazolam HCl (Versed Inj) 4 mg IVP Q4H PRN PRN Reason: Agitation Last Admin: 05/06/17 04:40 Dose: 4 mg Nitroglycerin (Nitro-Bid 2% Oint) 1 ea TOP 0000,0600,1200,1800 [facility] Last Admin: 05/06/17 06:31 Dose: Not Given Pantoprazole Sodium (Protonix Inj) 40 mg IVP Q12 [facility] - Labs Labs: 05/06/17 04:45 05/06/17 04:45 PT 12.3 Seconds (9.9-11.8) H 05/06/17 04:45 INR 1.14 (0.93-1.08) H 05/06/17 04:45 APTT 32.9 Seconds (23.7-30.8) H 05/06/17 04:45 - Constitutional Appears: No Acute Distress, Other (intubated and sedated) - Head Exam Head Exam: ATRAUMATIC, NORMOCEPHALIC - Eye Exam Eye Exam: Normal appearance - ENT Exam ENT Exam: Mucous Membranes Moist - Respiratory Exam Additional comments: intubated and on vent support - Cardiovascular Exam Cardiovascular Exam: Tachycardia, Irregular Rhythm - GI/Abdominal Exam GI & Abdominal Exam: Soft, Normal Bowel Sounds. absent: Distended - Neurological Exam Neurological Exam: Altered - Psychiatric Exam Psychiatric exam: Flat Affect - Skin Skin Exam: Dry, Warm Assessment and Plan - Assessment and Plan (Free Text) Plan: 77 M s/p Exploratory laparotomy and Gastric wedge resection for perforated gastric ulcer/pneumoperitoneum POD#2 now with afib RVR -IV abx and IV fluids -Monitor Hgb and vitals -Management as per ICU -DW Dr. Renae Marin PGY1
[2017-05-06] MEDS ORDERED: Sodium Chloride 0.9% 1,000 ML IV SCH ×2 (09:30→17:45)
[2017-05-06] MEDS ORDERED: Amiodarone 150 mg/D5W 100 ml 150 MG/100 ML BAG IVPB ONE (09:43)
[2017-05-06 09:59] LABS: CHLORIDE URINE 18 mmol/L (32-290)
--- NOTE | 2017-05-06 10:10 | CP.PCM.PN ---
Subjective - Date & Time of Evaluation Date of Evaluation: 05/06/17 Time of Evaluation: 09:30 - Subjective Subjective: Continues to be intubated and sedated, no fevers overnight. Objective - Vital Signs/Intake and Output Vital Signs (last 24 hours): Temp Pulse Resp BP Pulse Ox 98.4 F 152 H 16 101/41 L 98 05/06/17 06:00 05/06/17 06:00 05/06/17 06:00 05/06/17 06:00 05/06/17 06:00 Intake and Output: 05/05/17 05/06/17 18:59 06:59 Intake Total 148 1322 Output Total 895 1120 Balance -747 202 - Medications Medications: Current Medications Amlodipine Besylate (Norvasc) [address] [facility] Last Admin: 05/03/17 10:25 Dose: Not Given Atorvastatin Calcium (Lipitor) [address] [facility] Last Admin: 05/05/17 17:13 Dose: Not Given Chlorhexidine Gluconate (Peridex) [address] [facility] Last Admin: 05/05/17 17:14 Dose: 15 ml Hydralazine HCl (Apresoline) 10 mg IVP Q6 PRN PRN Reason: SBP> 160 Last Admin: 05/04/17 17:42 Dose: 10 mg Sodium Chloride (Sodium Chloride 0.9%) 1,000 mls @ 100 mls/hr IV .Q10H [facility] Last Admin: 05/06/17 02:00 Dose: 100 mls/hr NOREPINEPHRINE BIT/0.9 % NACL (Levophed 4 Mg/ 250 Ml Ns Premixed) 4 mg in 250 mls @ 15 mls/hr IV .[id number] PRN; Protocol; 4 MCG/MIN PRN Reason: TITRATE PER MD ORDER Last Titration: 05/05/17 00:05 Dose: 0 mcg/min, 0 mls/hr Fentanyl Citrate (Fentanyl Citrate/Sodium Chloride 1 Mg/100 Ml) 1,000 mcg in 100 mls @ 2 mls/hr IV .Q24H [facility]IL[facility]IA PRN Reason: Protocol Last Titration: 05/06/17 05:00 Dose: 3 ml/hr, 3 mls/hr Meropenem 1g/NS 100mL IVPB (Meropenem 1g/Ns 100ml Ivpb) 1 gm in 100 mls @ 100 mls/hr IVPB Q12 SIL[facility]IA PRN Reason: Protocol Stop: 05/13/17 10:16 Last Admin: 05/05/17 10:45 Dose: 100 mls/hr Lisinopril (Zestril) [address] [facility] Last Admin: 05/05/17 09:50 Dose: Not Given Metoprolol Tartrate (Lopressor) [address] [facility] Last Admin: 05/04/17 18:11 Dose: Not Given Metoprolol Tartrate (Lopressor) 5 mg IVP Q8H PRN PRN Reason: Systolic Blood Pressure Last Admin: 05/06/17 06:00 Dose: 5 mg Midazolam HCl (Versed Inj) 4 mg IVP Q4H PRN PRN Reason: Agitation Last Admin: 05/06/17 04:40 Dose: 4 mg Nitroglycerin (Nitro-Bid 2% Oint) 1 ea TOP 0000,0600,1200,1800 [facility] Last Admin: 05/06/17 06:31 Dose: Not Given Pantoprazole Sodium (Protonix Inj) [address] [facility] - Labs Labs: 05/06/17 04:45 05/06/17 04:45 PT 12.3 Seconds (9.9-11.8) H 05/06/17 04:45 INR 1.14 (0.93-1.08) H 05/06/17 04:45 APTT 32.9 Seconds (23.7-30.8) H 05/06/17 04:45 - Constitutional Appears: Other (intubated and sedated) - Head Exam Head Exam: NORMAL INSPECTION - ENT Exam Additional comments: ET tube in place - Respiratory Exam Respiratory Exam: Decreased Breath Sounds - Cardiovascular Exam Cardiovascular Exam: +S1, +S2 - GI/Abdominal Exam GI & Abdominal Exam: Soft. absent: Tenderness Additional comments: dry dressings in place; abdominal drain still with serosanguinous fluid Assessment and Plan - Assessment and Plan (Free Text) Plan: Assessment Systemic Inflammatory Response Syndrome, probably severe sepsis with ventilator- dependent respiratory failure post-op due to perforated gastric ulcer S/P ex- lap and gastric wedge resection POD #2, R/O bilateral lower lobe aspiration pneumonia in a patient still with ventilator-dependent respiratory failure post- op colon polyps COPD S/P bilateral knee surgery Plan continue Merrem day 2; repeat cultures have been negative; PCT is elevated; will review repeat CXR's in the subsequent days will continue to monitor MAX drain output will continue to monitor clinically
[2017-05-06] MEDS: Meropenem 1g/NS 100mL IVPB 1 GM/100 ML PIGGYBACK IVPB SCH ×2 (10:15→22:07)
[2017-05-06] MEDS: Metoprolol 1 mg/ml Inj IVP SCH ×2 (10:20→17:34)
[2017-05-06] MEDS: Amiodarone 360 mg/D5W 200 ml 360 MG/200 ML BAG IV SCH ×2 (10:46→16:30)
--- NOTE | 2017-05-06 11:49 | CP.PCM.PN ---
<Ana Freeman - Last Filed: 05/06/17 11:48> Subjective - Date & Time of Evaluation Date of Evaluation: 05/06/17 Time of Evaluation: 09:20 - Subjective Subjective: Seen and examined at the bedside earlier today, the chart was reviewed. Patient remains intubated and sedated. Remains with NG tube that is draining bile colored secretions, no reports of any overt GI bleed. Or acute overnight events. This morning the patient with Afib w/ RVR , given bolus of Cardizem and to start on amiodarone drip. Objective - Vital Signs/Intake and Output Vital Signs (last 24 hours): Temp Pulse Resp BP Pulse Ox 98.4 F 122 H 22 80/40 L 100 05/06/17 06:00 05/06/17 10:04 05/06/17 07:58 05/06/17 10:04 05/06/17 07:58 Intake and Output: 05/06/17 05/06/17 06:59 18:59 Intake Total 1322 Output Total 1120 Balance 202 - Medications Medications: Current Medications Amlodipine Besylate (Norvasc) 10 mg PO DAILY [facility] Last Admin: 05/03/17 10:25 Dose: Not Given Chlorhexidine Gluconate (Peridex) 15 ml PO BID [facility] Last Admin: 05/05/17 17:14 Dose: 15 ml Hydralazine HCl (Apresoline) 10 mg IVP Q6 PRN PRN Reason: SBP> 160 Last Admin: 05/04/17 17:42 Dose: 10 mg NOREPINEPHRINE BIT/0.9 % NACL (Levophed 4 Mg/ 250 Ml Ns Premixed) 4 mg in 250 mls @ 15 mls/hr IV .[id number] PRN; Protocol; 4 MCG/MIN PRN Reason: TITRATE PER MD ORDER Last Titration: 05/05/17 00:05 Dose: 0 mcg/min, 0 mls/hr Fentanyl Citrate (Fentanyl Citrate/Sodium Chloride 1 Mg/100 Ml) 1,000 mcg in 100 mls @ 2 mls/hr IV .Q24H [facility] PRN Reason: Protocol Last Titration: 05/06/17 05:00 Dose: 3 ml/hr, 3 mls/hr Meropenem 1g/NS 100mL IVPB (Meropenem 1g/Ns 100ml Ivpb) 1 gm in 100 mls @ 100 mls/hr IVPB Q12 [facility] PRN Reason: Protocol Stop: 05/13/17 10:16 Last Admin: 05/06/17 10:15 Dose: 100 mls/hr Sodium Chloride (Sodium Chloride 0.9%) 1,000 mls @ 125 mls/hr IV .Q8H [facility] Amiodarone HCl/Dextrose (Nexterone 360 Mg In D5w 200 Ml (Premix)) 360 mg in 200 mls @ 33.333 mls/hr IV .Q6H [facility]; 1 MG/MIN PRN Reason: Protocol Last Admin: 05/06/17 10:46 Dose: 33.333 mls/hr Metoprolol Tartrate (Lopressor) 5 mg IVP Q6H [facility] Midazolam HCl (Versed Inj) 4 mg IVP Q4H PRN PRN Reason: Agitation Last Admin: 05/06/17 04:40 Dose: 4 mg Nitroglycerin (Nitro-Bid 2% Oint) 1 ea TOP 0000,0600,1200,1800 [facility] Last Admin: 05/06/17 06:31 Dose: Not Given Pantoprazole Sodium (Protonix Inj) 40 mg IVP Q12 [facility] Last Admin: 05/06/17 10:16 Dose: 40 mg Verapamil HCl (Verapamil Inj) 2.5 mg IVP Q6H PRN PRN Reason: for HEAT rate >130 - Labs Labs: 05/06/17 04:45 05/06/17 04:45 PT 12.3 Seconds (9.9-11.8) H 05/06/17 04:45 INR 1.14 (0.93-1.08) H 05/06/17 04:45 APTT 32.9 Seconds (23.7-30.8) H 05/06/17 04:45 - Constitutional Appears: No Acute Distress (sedated and intubated) - Head Exam Head Exam: NORMOCEPHALIC - ENT Exam ENT Exam: Mucous Membranes Moist - Neck Exam Neck Exam: Normal Inspection - Respiratory Exam Respiratory Exam: absent: Decreased Breath Sounds, Rales, Wheezes, Respiratory Distress - Cardiovascular Exam Cardiovascular Exam: +S1, +S2 - GI/Abdominal Exam GI & Abdominal Exam: Soft Additional comments: ssurgical dressing in place dry and intact, G PEJ with serosanguineous drain. - Extremities Exam Extremities Exam: Normal Capillary Refill. absent: Pedal Edema - Neurological Exam Neurological Exam: Altered (sedated) - Skin Skin Exam: Dry, Warm Assessment and Plan - Assessment and Plan (Free Text) Assessment: Assessment: Respiratory failure, intubated, failed postop extubation GI bleed, found to have perforated gastric ulcer,s/p gastric wedge ulcer Atrial fibrillation with RVR h/o chronic alcohol use Anemia, s/p blood transfusion Elevated LFT, differential to consider is shock liver, patient noted to have episodes of hypotension,lfts were normal values since admission, consider medication induced Status post fall S/P Hyponatremia NSTEMI COPD H/O Colon polyps PLAN: NPO, continue IVF continue Protonix every 12 anticoagulant currently on hold SCD to lower extremities monitor h/h, Transfuse as necessary trend LFT On amiodarone drip as per surgery, icu team Seen and discussed with Dr. Lemus. <Matthew Lemus V - Last Filed: 05/06/17 18:26> Objective - Vital Signs/Intake and Output Vital Signs (last 24 hours): Temp Pulse Resp BP Pulse Ox 98.4 F 128 H 22 87/43 L 100 05/06/17 06:00 05/06/17 17:34 05/06/17 07:58 05/06/17 17:34 05/06/17 07:58 Intake and Output: 05/06/17 05/06/17 06:59 18:59 Intake Total 1322 Output Total 1120 Balance 202 - Medications Medications: Current Medications Albuterol/Ipratropium (Duoneb 3 Mg/0.5 Mg (3 Ml) Ud) 3 ml IH [id number] [facility] Last Admin: 05/06/17 13:37 Dose: 3 ml Amlodipine Besylate (Norvasc) 10 mg PO DAILY [facility] Last Admin: 05/03/17 10:25 Dose: Not Given Chlorhexidine Gluconate (Peridex) 15 ml PO BID [facility] Last Admin: 05/05/17 17:14 Dose: 15 ml Hydralazine HCl (Apresoline) 10 mg IVP Q6 PRN PRN Reason: SBP> 160 Last Admin: 05/04/17 17:42 Dose: 10 mg NOREPINEPHRINE BIT/0.9 % NACL (Levophed 4 Mg/ 250 Ml Ns Premixed) 4 mg in 250 mls @ 15 mls/hr IV .[id number] PRN; Protocol; 4 MCG/MIN PRN Reason: TITRATE PER MD ORDER Last Titration: 05/05/17 00:05 Dose: 0 mcg/min, 0 mls/hr Fentanyl Citrate (Fentanyl Citrate/Sodium Chloride 1 Mg/100 Ml) 1,000 mcg in 100 mls @ 2 mls/hr IV .Q24H [facility] PRN Reason: Protocol Last Titration: 05/06/17 05:00 Dose: 3 ml/hr, 3 mls/hr Meropenem 1g/NS 100mL IVPB (Meropenem 1g/Ns 100ml Ivpb) 1 gm in 100 mls @ 100 mls/hr IVPB Q12 [facility] PRN Reason: Protocol Stop: 05/13/17 10:16 Last Admin: 05/06/17 10:15 Dose: 100 mls/hr Sodium Chloride (Sodium Chloride 0.9%) 1,000 mls @ 125 mls/hr IV .Q8H [facility] Amiodarone HCl/Dextrose (Nexterone 360 Mg In D5w 200 Ml (Premix)) 360 mg in 200 mls @ 33.333 mls/hr IV .Q6H [facility]; 1 MG/MIN PRN Reason: Protocol Last Admin: 05/06/17 10:46 Dose: 33.333 mls/hr Sodium Chloride (Sodium Chloride 0.9%) 1,000 mls @ 999 mls/hr IV .Q1H1M [facility] Metoprolol Tartrate (Lopressor) 5 mg IVP Q6H [facility] Last Admin: 05/06/17 17:34 Dose: Not Given Midazolam HCl (Versed Inj) 4 mg IVP Q4H PRN PRN Reason: Agitation Last Admin: 05/06/17 04:40 Dose: 4 mg Morphine Sulfate (Morphine) 2 mg IVP Q3H PRN PRN Reason: Pain, severe (8-10) Nitroglycerin (Nitro-Bid 2% Oint) 1 ea TOP 0000,0600,1200,1800 [facility] Last Admin: 05/06/17 17:37 Dose: Not Given Pantoprazole Sodium (Protonix Inj) 40 mg IVP Q12 [facility] Last Admin: 05/06/17 10:16 Dose: 40 mg Verapamil HCl (Verapamil Inj) 2.5 mg IVP Q6H PRN PRN Reason: for HEAT rate >130 - Labs Labs: 05/06/17 16:51 05/06/17 15:30 PT 12.3 Seconds (9.9-11.8) H 05/06/17 04:45 INR 1.14 (0.93-1.08) H 05/06/17 04:45 APTT 32.9 Seconds (23.7-30.8) H 05/06/17 04:45 Attending/Attestation - Attestation I have personally seen and examined this patient.: Yes I have fully participated in the care of the patient.: Yes I have reviewed all pertinent clinical information, including history, physical exam and plan: Yes Notes (Text): This is an addendum to GI progress report dictated by Ana Freeman APN.The patient was seen and examined earlier. Medical records, lab studies, imagings were reviewed. Last 24 hours events reviewed. Agreed with the above treatment plan as outlined in Ana Freeman APN's notes the with the addition of the following patient remains intubated Significant elevation of transaminases Amiodarone has been on hold The significant elevated LFTs could be due to ischemia versus drug-induced of the amiodarone now follow-up the LFTs and PT/INR Patient did have 1 episode of melena probably old blood .hct stable On Protonix every [address] of the abdomen and pelvis and chest 05/06/17 18:24
[2017-05-06] MEDS ORDERED: Morphine 2 mg/ml ISec IVP PRN (12:35)
--- NOTE | 2017-05-06 13:19 | CP.PCM.PN ---
<Lily Bennett - Last Filed: 05/06/17 13:15> Subjective - Date & Time of Evaluation Date of Evaluation: 05/06/17 Time of Evaluation: 09:00 - Subjective Subjective: PGY-[address] Bowser Patient seen and examined at bedside in ICU. Patient is currently intubated on sedation. S/p ex lap pod #2. Objective - Vital Signs/Intake and Output Vital Signs (last 24 hours): Temp Pulse Resp BP Pulse Ox 98.4 F 122 H 22 80/40 L 100 05/06/17 06:00 05/06/17 10:04 05/06/17 07:58 05/06/17 10:04 05/06/17 07:58 Intake and Output: 05/06/17 05/06/17 06:59 18:59 Intake Total 1322 Output Total 1120 Balance 202 - Medications Medications: Current Medications Albuterol/Ipratropium (Duoneb 3 Mg/0.5 Mg (3 Ml) Ud) 3 ml IH [id number] [facility] Amlodipine Besylate (Norvasc) 10 mg PO DAILY [facility] Last Admin: 05/03/17 10:25 Dose: Not Given Chlorhexidine Gluconate (Peridex) 15 ml PO BID [facility] Last Admin: 05/05/17 17:14 Dose: 15 ml Hydralazine HCl (Apresoline) 10 mg IVP Q6 PRN PRN Reason: SBP> 160 Last Admin: 05/04/17 17:42 Dose: 10 mg NOREPINEPHRINE BIT/0.9 % NACL (Levophed 4 Mg/ 250 Ml Ns Premixed) 4 mg in 250 mls @ 15 mls/hr IV .[id number] PRN; Protocol; 4 MCG/MIN PRN Reason: TITRATE PER MD ORDER Last Titration: 05/05/17 00:05 Dose: 0 mcg/min, 0 mls/hr Fentanyl Citrate (Fentanyl Citrate/Sodium Chloride 1 Mg/100 Ml) 1,000 mcg in 100 mls @ 2 mls/hr IV .Q24H [facility] PRN Reason: Protocol Last Titration: 05/06/17 05:00 Dose: 3 ml/hr, 3 mls/hr Meropenem 1g/NS 100mL IVPB (Meropenem 1g/Ns 100ml Ivpb) 1 gm in 100 mls @ 100 mls/hr IVPB Q12 [facility] PRN Reason: Protocol Stop: 05/13/17 10:16 Last Admin: 05/06/17 10:15 Dose: 100 mls/hr Sodium Chloride (Sodium Chloride 0.9%) 1,000 mls @ 125 mls/hr IV .Q8H [facility] Amiodarone HCl/Dextrose (Nexterone 360 Mg In D5w 200 Ml (Premix)) 360 mg in 200 mls @ 33.333 mls/hr IV .Q6H [facility]; 1 MG/MIN PRN Reason: Protocol Last Admin: 05/06/17 10:46 Dose: 33.333 mls/hr Metoprolol Tartrate (Lopressor) 5 mg IVP Q6H [facility] Midazolam HCl (Versed Inj) 4 mg IVP Q4H PRN PRN Reason: Agitation Last Admin: 05/06/17 04:40 Dose: 4 mg Morphine Sulfate (Morphine) 2 mg IVP Q3H PRN PRN Reason: Pain, severe (8-10) Nitroglycerin (Nitro-Bid 2% Oint) 1 ea TOP 0000,0600,1200,1800 [facility] Last Admin: 05/06/17 06:31 Dose: Not Given Pantoprazole Sodium (Protonix Inj) 40 mg IVP Q12 [facility] Last Admin: 05/06/17 10:16 Dose: 40 mg Verapamil HCl (Verapamil Inj) 2.5 mg IVP Q6H PRN PRN Reason: for HEAT rate >130 - Labs Labs: 05/06/17 04:45 05/06/17 04:45 PT 12.3 Seconds (9.9-11.8) H 05/06/17 04:45 INR 1.14 (0.93-1.08) H 05/06/17 04:45 APTT 32.9 Seconds (23.7-30.8) H 05/06/17 04:45 - Constitutional Appears: No Acute Distress - Head Exam Head Exam: ATRAUMATIC, NORMAL INSPECTION, NORMOCEPHALIC - Eye Exam Eye Exam: Normal appearance - ENT Exam Additional comments: intubated - Respiratory Exam Respiratory Exam: Clear to Ausculation Bilateral, Rhonchi, NORMAL BREATHING PATTERN. absent: Decreased Breath Sounds, Rales, Respiratory Distress Additional comments: intubated - Cardiovascular Exam Cardiovascular Exam: REGULAR RHYTHM, +S1, +S2. absent: Tachycardia, Murmur - GI/Abdominal Exam GI & Abdominal Exam: Soft, Normal Bowel Sounds. absent: Distended, Firm, Guarding, Tenderness - Extremities Exam Extremities Exam: Normal Inspection. absent: Pedal Edema, Tenderness - Neurological Exam Neurological Exam: Alert, Awake, Oriented x3 - Skin Skin Exam: Dry, Intact, Normal Color, Warm Assessment and Plan - Assessment and Plan (Free Text) Assessment: 77 yo male with no significant PMH initially presented with hyponatremia, hypokalemia, NSTEMI, s/p fall. Patient's found to have acute anemia due to blood loss from perforated gastric ulcer, patient went to surgery. Patient had to be intubated due to impending respiratory failure. Patient had episode of hypotension require pressers which has resolved. Plan: 1. acute anemia due to blood loss from perforated gastric ulcer - AM labs reviewed, Hgb 9.3 - recieved 2 units pRBC on 05/04 - CT abd/ pel without PO/IV contrast reviewed showed free air with perforation ( refer to full report) - s/p laparotomy with wedge resection pod#2 - cont meropenem - protonix 40 q12 - cont IVF NS at 100cc/ho - GI and surgery following 2. intubated due to respiratory failure - patient is sedated and intubated on PRVC - CT chest showed moderate size pleural effusions left greater than right, minimal bibasilar consolidation adjacent to effusions, minimal right upper lobe interstitial infiltrates - abx, meropenem - ID consulted for sepsis 3. NSTEMI - trop downtrending - Echo on 05/01 showed mild concentric left ventricular hypertrophy, EF-55%, Mitral regurgitation is mild to moderate, mild tricuspid regurgitation, no pericardial effusion. - patient was scheduled for cath, however was postponed due to GI bleed - asa and plavix stopped - cont topical nitroglycerin - cont metoprolol - amiodarone started 4. elevated LFTs - most likely due to hypotension, shocked liver vs sepsis - cont to up trend - hepatitis panel ordered - stopped lipitor - GI following 5. severe hyponatremia and hypokalemia - labs reviewed, Na and K improving - most likely hypotonic, hypovolemic hyponatremia - cont IVF NS at 100cc/ho 6. JADEN - most likely pre-renal 2/ hypotension - cont IVF NS@100cc - cont to monitor 7. s/p fall - CT head showed No intracranial mass, hemorrhage or evidence of acute infarct. - CT chest showed No evidence of lung mass, Vertebral fracture of T8, Multiple left-sided rib fractures with a moderate size left pleural effusion. - pain control 8. HTN - patient had episode of hypotension - BP meds placed on hold due to hypotensio <Jarocho Bowser S - Last Filed: 05/06/17 22:23> Objective - Vital Signs/Intake and Output Vital Signs (last 24 hours): Temp Pulse Resp BP Pulse Ox 97.6 F 78 22 92/43 L 100 05/06/17 20:00 05/06/17 21:30 05/06/17 07:58 05/06/17 21:00 05/06/17 21:30 Intake and Output: 05/06/17 05/07/17 18:59 06:59 Intake Total 3100 Output Total 290 Balance 2810 - Medications Medications: Current Medications Albuterol/Ipratropium (Duoneb 3 Mg/0.5 Mg (3 Ml) Ud) 3 ml IH [id number] [facility] Last Admin: 05/06/17 19:35 Dose: 3 ml Amlodipine Besylate (Norvasc) 10 mg PO DAILY [facility] Last Admin: 05/03/17 10:25 Dose: Not Given Chlorhexidine Gluconate (Peridex) 15 ml PO BID [facility] Last Admin: 05/05/17 17:14 Dose: 15 ml Hydralazine HCl (Apresoline) 10 mg IVP Q6 PRN PRN Reason: SBP> 160 Last Admin: 05/04/17 17:42 Dose: 10 mg NOREPINEPHRINE BIT/0.9 % NACL (Levophed 4 Mg/ 250 Ml Ns Premixed) 4 mg in 250 mls @ 15 mls/hr IV .[id number] PRN; Protocol; 4 MCG/MIN PRN Reason: TITRATE PER MD ORDER Last Titration: 05/05/17 00:05 Dose: 0 mcg/min, 0 mls/hr Meropenem 1g/NS 100mL IVPB (Meropenem 1g/Ns 100ml Ivpb) 1 gm in 100 mls @ 100 mls/hr IVPB Q12 [facility] PRN Reason: Protocol Stop: 05/13/17 10:16 Last Admin: 05/06/17 22:07 Dose: 100 mls/hr Sodium Chloride (Sodium Chloride 0.9%) 1,000 mls @ 125 mls/hr IV .Q8H [facility] Amiodarone HCl/Dextrose (Nexterone 360 Mg In D5w 200 Ml (Premix)) 360 mg in 200 mls @ 33.333 mls/hr IV .Q6H [facility]; 1 MG/MIN PRN Reason: Protocol Last Admin: 05/06/17 16:30 Dose: Not Given Sodium Chloride (Sodium Chloride 0.9%) 1,000 mls @ 999 mls/hr IV .Q1H1M [facility] Fentanyl Citrate (Fentanyl Citrate/Sodium Chloride 1 Mg/100 Ml) 1,000 mcg in 100 mls @ 5 mls/hr IV .Q20H PRN; Protocol; 50 MCG/HR PRN Reason: TITRATE PER MD ORDER Metoprolol Tartrate (Lopressor) 5 mg IVP Q6H [facility] Last Admin: 05/06/17 17:34 Dose: Not Given Midazolam HCl (Versed Inj) 4 mg IVP Q4H PRN PRN Reason: Agitation Last Admin: 05/06/17 04:40 Dose: 4 mg Morphine Sulfate (Morphine) 2 mg IVP Q3H PRN PRN Reason: Pain, severe (8-10) Nitroglycerin (Nitro-Bid 2% Oint) 1 ea TOP 0000,0600,1200,1800 [facility] Last Admin: 05/06/17 19:57 Dose: Not Given Pantoprazole Sodium (Protonix Inj) 40 mg IVP Q12 [facility] Last Admin: 05/06/17 10:16 Dose: 40 mg Verapamil HCl (Verapamil Inj) 2.5 mg IVP Q6H PRN PRN Reason: for HEAT rate >130 - Labs Labs: 05/06/17 21:25 05/06/17 21:25 PT 12.3 Seconds (9.9-11.8) H 05/06/17 04:45 INR 1.14 (0.93-1.08) H 05/06/17 04:45 APTT 32.9 Seconds (23.7-30.8) H 05/06/17 04:45 Assessment and Plan - Assessment and Plan (Free Text) Plan: Pt seen and examined. Agree with above note of resident. Meds and labs reviewed. [employer] notes reviewed. Pt remains critical. Not sure who is next of kin. On Ventilator. Elevation of Cr due to JADEN. Will increase IVF. Spoke to Dr Rivera, line producer. Palliative landcare facilitator. Spot to LILA Rice. Repeat BW in am.
[2017-05-06] MEDS: Albuterol-Ipratrop 3 mg / 0.5 (3 ml) UD IH SCH ×2 (13:37→19:35)
--- NOTE | 2017-05-06 13:55 | CP.CCUPN ---
<Juventino Allen - Last Filed: 05/06/17 14:46> CCU Subjective - Physician Review Subjective (Free Text): 05/06/17 14:04 Patient s/e this AM in ICU while on sedation and intubated. Past 24 hours patient noted to have elevated HR this AM, EKG done showing afib with RVR, Cardizem given without resolve. Patient then placed on amio gtt. Patient placed on pressure support and rate control achieved. Patient remains afebrile and normotensive. CCU Objective - Vital Signs / Intake & Output Vital Signs (Last 4 hours): Vital Signs Pulse BP 05/06/17 10:04 122 H 80/40 L Intake and Output (Last 8hrs): Intake & Output 05/05/17 05/06/17 05/06/17 22:59 06:59 14:59 Intake Total 100 1300 Output Total 1055 920 Balance -955 380 Weight 188 lb Intake: IV 100 1300 Right Hand 1200 Right Upper arm 60 Output: Gastric Amount 200 Nares 200 Drainage 30 320 Right Abdomen 30 20 Right Nare 300 Urine 825 600 Urethral ([place]) 825 600 - Physical Exam Head: Positive for: Atraumatic, Normocephalic Pupils: Positive for: PERRL. Negative for: Non-Reactive, Pinpoint Extroacular Muscles: Positive for: EOMI. Negative for: Gaze Palsy Conjunctiva: Positive for: Normal. Negative for: Injected, Icteric Mouth: Positive for: Moist Mucous Membranes, Normal Lips, Normal Tounge Nose (External): Positive for: Atraumatic. Negative for: Abrasion, Contusion, Laceration Neck: Positive for: Normal Range of Motion. Negative for: MIDLINE TENDERNESS, JVD, Lymphadenopathy, Trachea Midline Respiratory/Chest: Positive for: Clear to Auscultation, Good Air Exchange. Negative for: Respiratory Distress, Accessory Muscle Use, Wheezes, Decreased Breath Sounds, Rales, Rhonchi, Tachypneic, Tender to Palpation Cardiovascular: Positive for: Regular Rate and Rhythm, Normal S1, S2. Negative for: Murmurs, Irregular Rhythm, Tachycardic, Bradycardic Abdomen: Positive for: Tenderness, Other (surgical dressing midline c/d/i, gastric tube ). Negative for: Distention, Peritoneal Signs Genitourinary Male: Positive for: Other ([place] catheter in place ) Back: Positive for: Normal Inspection Upper Extremity: Positive for: Normal Inspection, Normal ROM, NORMAL PULSES, Capillary Refill < 2s. Negative for: Cyanosis, Edema, Swelling, Erythema, Deformity Lower Extremity: Positive for: Normal Inspection, NORMAL PULSES, Normal ROM. Negative for: Edema, CALF TENDERNESS, Cyanosis, Tenderness, Swelling, Erythema, Deformity, Capillary Refill < 2 s Neurological: Positive for: Other (intubated, off sedation, opens eyes to verbal stimuli, unable to follow commands at this time, moves all four extremities spontaneuously ) Skin: Positive for: Warm, Dry, Normal Color. Negative for: Rashes Psychiatric: Positive for: Normal Affect, Normal Mood. Negative for: Anxious, Agitated - Medications Active Medications: Active Medications Generic Name Dose Route Start Last Admin Trade Name Freq PRN Reason Stop Dose Admin Albuterol/Ipratropium 3 ml 05/06/17 14:00 Duoneb 3 Mg/0.5 Mg (3 Ml) Ud IH [id number] SILVIA Amlodipine Besylate 10 mg 05/01/17 12:45 05/03/17 10:25 Norvasc PO Not Given DAILY SILVIA Chlorhexidine Gluconate 15 ml 05/05/17 11:00 05/05/17 17:14 Peridex PO 15 ml BID SILVIA Administration Hydralazine HCl 10 mg 05/01/17 02:36 05/04/17 17:42 Apresoline IVP 10 mg Q6 PRN Administration SBP> 160 NOREPINEPHRINE BIT/0.9 % NACL 4 mg in 250 mls @ 15 mls/hr 05/04/17 18:35 00:05 Levophed 4 Mg/ 250 Ml Ns Premixed IV 0 mcg/min .[id number] PRN 0 mls/hr TITRATE PER MD ORDER Titration Protocol 4 MCG/MIN Fentanyl Citrate 1,000 mcg in 100 mls @ 2 mls/hr 05/04/17 22:41 05/06/17 05: 00 Fentanyl Citrate/Sodium Chloride 1 Mg/100 Ml IV 3 ml/hr .Q24H SILVIA 3 mls/hr Protocol Titration Meropenem 1g/NS 100mL IVPB 1 gm in 100 mls @ 100 mls/hr 05/05/17 10:15 10:15 Meropenem 1g/Ns 100ml Ivpb IVPB 05/13/17 10:16 100 mls/hr Q12 SILVIA Administration Protocol Sodium Chloride 1,000 mls @ 125 mls/hr 05/06/17 09:30 Sodium Chloride 0.9% IV .Q8H SILVIA Amiodarone HCl/Dextrose 360 mg in 200 mls @ 33.333 mls/hr 05/06/17 10:30 10:46 Nexterone 360 Mg In D5w 200 Ml (Premix) IV 33.333 mls/hr .Q6H SILVIA Administration Protocol 1 MG/MIN Metoprolol Tartrate 5 mg 05/06/17 10:00 Lopressor IVP Q6H SILVIA Midazolam HCl 4 mg 05/04/17 18:44 05/06/17 04:40 Versed Inj IVP 4 mg Q4H PRN Administration Agitation Morphine Sulfate 2 mg 05/06/17 12:35 Morphine IVP Q3H PRN Pain, severe (8-10) Nitroglycerin 1 ea 05/02/17 00:00 05/06/17 06:31 Nitro-Bid 2% Oint TOP Not Given 0000,0600,1200,1800 [facility] Pantoprazole Sodium 40 mg 05/06/17 10:00 05/06/17 10:16 Protonix Inj IVP 40 mg Q12 SILVIA Administration Verapamil HCl 2.5 mg 05/06/17 14:00 Verapamil Inj IVP Q6H PRN for HEAT rate >130 - Patient Studies Lab Studies: Microbiology Studies 05/05/17 03:28 Urine Culture - Final Urine,[place] No Growth (<1,000 CFU/ML) 05/04/17 19:30 Blood Culture - Preliminary Blood NO GROWTH AFTER 24 HOURS 05/04/17 19:00 Blood Culture - Preliminary Blood NO GROWTH AFTER 24 HOURS 04/30/17 19:16 Blood Culture - Final Blood NO GROWTH AFTER 5 DAYS Gram Stain - Final TEST NOT PERFORMED 04/30/17 19:16 Blood Culture - Final Blood NO GROWTH AFTER 5 DAYS Gram Stain - Final TEST NOT PERFORMED Lab Studies 05/06/17 05/06/17 05/06/17 Range/Units 05:20 04:45 04:45 WBC (4.5-11.0) 10^3/ul RBC (3.5-6.1) 10^6/uL Hgb (14.0-18.0) g/dL Hct (42.0-52.0) % MCV (80.0-105.0) fl MCH (25.0-35.0) pg MCHC (31.0-37.0) g/dl RDW (11.5-14.5) % Plt Count (120.0-450.0) 10^3/uL MPV (7.0-11.0) fl Gran % (50.0-68.0) % Lymph % (Auto) (22.0-35.0) % [place] % (Auto) (1.0-6.0) % Eos % (Auto) (1.5-5.0) % Baso % (Auto) (0.0-3.0) % Gran # (1.4-6.5) Lymph # (1.2-3.4) [place] # (0.1-0.6) Eos # (0.0-0.7) Baso # (0.0-2.0) K/mm3 PT 12.3 H (9.9-11.8) Seconds INR 1.14 H (0.93-1.08) APTT 32.9 H (23.7-30.8) Seconds pCO2 29 L (35-45) mm/Hg pO2 80.0 (80-100) mm/Hg HCO3 16.0 L (21-28) mmol/L ABG pH 7.35 (7.35-7.45) ABG Total CO2 16.9 L (22-28) mmol.L ABG O2 Saturation 98.5 H (95-98) % ABG O2 Content 11.6 L (15-23) ML/dl ABG Base Excess -8.6 L (-2.0-3.0) mmol/L ABG Hemoglobin 8.6 L (11.7-17.4) g/dL ABG Carboxyhemoglobin 2.3 H (0.5-1.5) % POC ABG HHb (Measured) 1.4 (0-5) % ABG Methemoglobin 1.3 (0.0-3.0) % ABG O2 Capacity 11.8 L (16-24) mL/dl Hgb O2 Saturation 95.1 (95.0-98.0) % FiO2 40.0 % Sodium 139 (132-148) mmol/L Potassium 4.3 (3.6-5.0) mmol/L Chloride 112 H (98-107) mmol/L Carbon Dioxide 20 L (21-33) mmol/L Anion Gap 11 (10-20) BUN 60 H (7-21) mg/dL Creatinine 1.7 H (0.8-1.5) mg/dL Est GFR ( Amer) 48 Est GFR (Non-Af Amer) 39 Random Glucose 115 H (70-110) mg/dL Calcium 8.0 L (8.4-10.5) mg/dL Phosphorus 4.5 (2.5-4.5) mg/dL Magnesium 2.0 (1.7-2.2) mg/dL Total Bilirubin 0.6 (0.2-1.3) mg/dL AST 416 H D (17-59) U/L ALT 427 H (7-56) U/L Alkaline Phosphatase 58 (38-126) U/L Total Protein 5.0 L (5.8-8.3) g/dL Albumin 2.4 L (3.0-4.8) g/dL Globulin 2.6 gm/dL Albumin/Globulin Ratio 0.9 L (1.1-1.8) Procalcitonin (0.19-0.49) NG/ML Urine Chloride (32-290) mmol/L 05/06/17 05/05/17 05/05/17 Range/Units 04:45 11:12 03:28 WBC 17.8 H D (4.5-11.0) 10^3/ul RBC 2.76 L (3.5-6.1) 10^6/uL Hgb 9.3 L (14.0-18.0) g/dL Hct 26.5 L (42.0-52.0) % MCV 96.0 (80.0-105.0) fl MCH 33.7 (25.0-35.0) pg MCHC 35.1 (31.0-37.0) g/dl RDW 16.0 H (11.5-14.5) % Plt Count 279 (120.0-450.0) 10^3/uL MPV 8.6 (7.0-11.0) fl Gran % 87.3 H (50.0-68.0) % Lymph % (Auto) 5.2 L (22.0-35.0) % [place] % (Auto) 7.3 H (1.0-6.0) % Eos % (Auto) 0.1 L (1.5-5.0) % Baso % (Auto) 0.1 (0.0-3.0) % Gran # 15.58 H (1.4-6.5) Lymph # 0.9 L (1.2-3.4) [place] # 1.3 H (0.1-0.6) Eos # 0.0 (0.0-0.7) Baso # 0.01 (0.0-2.0) K/mm3 PT (9.9-11.8) Seconds INR (0.93-1.08) APTT (23.7-30.8) Seconds pCO2 (35-45) mm/Hg pO2 (80-100) mm/Hg HCO3 (21-28) mmol/L ABG pH (7.35-7.45) ABG Total CO2 (22-28) mmol.L ABG O2 Saturation (95-98) % ABG O2 Content (15-23) ML/dl ABG Base Excess (-2.0-3.0) mmol/L ABG Hemoglobin (11.7-17.4) g/dL ABG Carboxyhemoglobin (0.5-1.5) % POC ABG HHb (Measured) (0-5) % ABG Methemoglobin (0.0-3.0) % ABG O2 Capacity (16-24) mL/dl Hgb O2 Saturation (95.0-98.0) % FiO2 % Sodium (132-148) mmol/L Potassium (3.6-5.0) mmol/L Chloride (98-107) mmol/L Carbon Dioxide (21-33) mmol/L Anion Gap (10-20) BUN (7-21) mg/dL Creatinine (0.8-1.5) mg/dL Est GFR ( Amer) Est GFR (Non-Af Amer) Random Glucose (70-110) mg/dL Calcium (8.4-10.5) mg/dL Phosphorus (2.5-4.5) mg/dL Magnesium (1.7-2.2) mg/dL Total Bilirubin (0.2-1.3) mg/dL AST (17-59) U/L ALT (7-56) U/L Alkaline Phosphatase (38-126) U/L Total Protein (5.8-8.3) g/dL Albumin (3.0-4.8) g/dL Globulin gm/dL Albumin/Globulin Ratio (1.1-1.8) Procalcitonin 2.34 H (0.19-0.49) NG/ML Urine Chloride 18 L (32-290) mmol/L Laboratory Results - last 24 hr 05/05/17 05/05/17 05/06/17 03:28 11:12 04:45 WBC 17.8 H D RBC 2.76 L Hgb 9.3 L Hct 26.5 L MCV 96.0 MCH 33.7 MCHC 35.1 RDW 16.0 H Plt Count 279 MPV 8.6 Gran % 87.3 H Lymph % (Auto) 5.2 L [place] % (Auto) 7.3 H Eos % (Auto) 0.1 L Baso % (Auto) 0.1 Gran # 15.58 H Lymph # 0.9 L [place] # 1.3 H Eos # 0.0 Baso # 0.01 PT INR APTT pCO2 pO2 HCO3 ABG pH ABG Total CO2 ABG O2 Saturation ABG O2 Content ABG Base Excess ABG Hemoglobin ABG Carboxyhemoglobin POC ABG HHb (Measured) ABG Methemoglobin ABG O2 Capacity Hgb O2 Saturation FiO2 Sodium Potassium Chloride Carbon Dioxide Anion Gap BUN Creatinine Est GFR ( Amer) Est GFR (Non-Af Amer) Random Glucose Calcium Phosphorus Magnesium Total Bilirubin AST ALT Alkaline Phosphatase Total Protein Albumin Globulin Albumin/Globulin Ratio Procalcitonin 2.34 H Urine Chloride 18 L 05/06/17 05/06/17 05/06/17 04:45 04:45 05:20 WBC RBC Hgb Hct MCV MCH MCHC RDW Plt Count MPV Gran % Lymph % (Auto) [place] % (Auto) Eos % (Auto) Baso % (Auto) Gran # Lymph # [place] # Eos # Baso # PT 12.3 H INR 1.14 H APTT 32.9 H pCO2 29 L pO2 80.0 HCO3 16.0 L ABG pH 7.35 ABG Total CO2 16.9 L ABG O2 Saturation 98.5 H ABG O2 Content 11.6 L ABG Base Excess -8.6 L ABG Hemoglobin 8.6 L ABG Carboxyhemoglobin 2.3 H POC ABG HHb (Measured) 1.4 ABG Methemoglobin 1.3 ABG O2 Capacity 11.8 L Hgb O2 Saturation 95.1 FiO2 40.0 Sodium 139 Potassium 4.3 Chloride 112 H Carbon Dioxide 20 L Anion Gap 11 BUN 60 H Creatinine 1.7 H Est GFR ( Amer) 48 Est GFR (Non-Af Amer) 39 Random Glucose 115 H Calcium 8.0 L Phosphorus 4.5 Magnesium 2.0 Total Bilirubin 0.6 AST 416 H D ALT 427 H Alkaline Phosphatase 58 Total Protein 5.0 L Albumin 2.4 L Globulin 2.6 Albumin/Globulin Ratio 0.9 L Procalcitonin Urine Chloride EKG/Cardiology Studies: Cardiology / EKG Studies 05/06/17 06:45 EKG [ELECTROCARDIOGRAM] Stat Comment: Reason For Exam: Tachycardia Review of Systems - Review of Systems Review of Systems: 12 point ROS unable to obtain due to patient being sedated Critical Care Progress Note - Nutrition Nutrition: Nutrition Category Date Time Status NPO Diet [DIET] Diets 05/04/17 Breakfast Ordered Assessment/Plan - Assessment and Plan (Free Text) Assessment: 77 year old male with PMH of COPD, HTN, hyperglycemia, recent hx of falls, and suspected upper GI bleed who was admitted to ICU with NSTEMI, hyponatremia, and hypokalemia on 05/01. Patient was stabalized and transferred to the floor. While there he had a drop in his Hgb and became tachycardic. CXR showed free air under diaphragm and CT abdomen confirmed free air. Patient went for ex lap and repair of gastric perforation in greater curvature of stomach POD#2 Plan: Neuro: Assessment prior to surgery showed AAO to person, time, not necessarily place Titration off Fentanyl for possible extubation today - Patient showing minimal response on exam will order ammonia and LFTs for evaluation of metabolic encephalopathy Continue to monitor Maintain normothermia and euvolemia Pulm: Intubated - trial of pressor support today with assessment for potential extubation - Morning ABG p02 80, pH 7.35 - Upon extubation, place patient on NCO2 with goal SaO2 of 88-92% Chest CT: notable for multiple fractured ribs with hx of multiple falls CT chest showing no lung mass, vertebral fracture of T8, multiple left-sided rib fractures, moderate size left pleural effusion CXR today showing bibasilar infiltrates Hx of COPD Incentive spirometer CVS: Atrial Fib with RVR - Tachycardia this AM with no discernable p wave, EKG showing afib with RVR vs. Atrial flutter - Amio bolus, amiodarone gtt started, will continue at this time - BB for rate control as well NSTEMI - Troponin elevation on admission, trending down now - Continue lipitor, BB - ECHO (05/01) EF of 55%, mild concentric LVH, mod MR, mild TR, no pericardial effusion - Cardiology consulted(Dr. Nick) and following, curbside LHC will be placed on hold HTN -HTN medications prn, stable at this time cont to monitor HDS not requiring pressor support at this time Continue to monitor GI: Perforation of gastric ulcer s/p ex lap with gastric wedge resection POD#2 - General surgery(Dr. Mccrary) consulted and following - H/H stable - GI consulted(Dr. Lemus) recs - Continue bowel rest with continuous suction of gastric contents - Will supplement with D5W in NS Transaminitis - diff dx: ischemic hepatitis vs. drug induced injury - Continue IVF and monitor Protonix for GI ppx Renal: - Cr continues to trend upward, continue fluids, UOP good, will monitor - Avoid nephrotoxic medications - Nephrology(Dr. Greenwood) following appreciate recs - Monitor electrolytes and replace as necessary Heme: H/H stable at this time s/p 2 units transfused DVT ppx with Heparin SC ID: Afebrile - On meropenem Day2 - UA unremarkable - Bld Clx: negative - Urine clx: contamination - CXR showing bibasilar infiltrates - Procal elevated ID following (Dr. Rosario)(Dr. Mayer) Case and plan discussed with attending Dr. Rivera - Date & Time Date: 05/06/17 Time: 13:09 <Miguel HERNANDEZ,Elisabet H - Last Filed: 05/06/17 17:26> CCU Objective - Vital Signs / Intake & Output Intake and Output (Last 8hrs): Intake & Output 05/06/17 05/06/17 05/06/17 06:59 14:59 22:59 Intake Total 1300 Output Total 920 Balance 380 Weight 188 lb Intake: IV 1300 Right Hand 1200 Right Upper arm 60 Output: Drainage 320 Right Abdomen 20 Right Nare 300 Urine 600 Urethral ([place]) 600 - Medications Active Medications: Active Medications Generic Name Dose Route Start Last Admin Trade Name Freq PRN Reason Stop Dose Admin Albuterol/Ipratropium 3 ml 05/06/17 14:00 05/06/17 13:37 Duoneb 3 Mg/0.5 Mg (3 Ml) Ud IH 3 ml [id number] SILVIA Administration Amlodipine Besylate 10 mg 05/01/17 12:45 05/03/17 10:25 Norvasc PO Not Given DAILY SILVIA Chlorhexidine Gluconate 15 ml 05/05/17 11:00 05/05/17 17:14 Peridex PO 15 ml BID SILVIA Administration Hydralazine HCl 10 mg 05/01/17 02:36 05/04/17 17:42 Apresoline IVP 10 mg Q6 PRN Administration SBP> 160 NOREPINEPHRINE BIT/0.9 % NACL 4 mg in 250 mls @ 15 mls/hr 05/04/17 18:35 00:05 Levophed 4 Mg/ 250 Ml Ns Premixed IV 0 mcg/min .[id number] PRN 0 mls/hr TITRATE PER MD ORDER Titration Protocol 4 MCG/MIN Fentanyl Citrate 1,000 mcg in 100 mls @ 2 mls/hr 05/04/17 22:41 05/06/17 05: 00 Fentanyl Citrate/Sodium Chloride 1 Mg/100 Ml IV 3 ml/hr .Q24H SILVIA 3 mls/hr Protocol Titration Meropenem 1g/NS 100mL IVPB 1 gm in 100 mls @ 100 mls/hr 05/05/17 10:15 10:15 Meropenem 1g/Ns 100ml Ivpb IVPB 05/13/17 10:16 100 mls/hr Q12 SILVIA Administration Protocol Sodium Chloride 1,000 mls @ 125 mls/hr 05/06/17 09:30 Sodium Chloride 0.9% IV .Q8H SILVIA Amiodarone HCl/Dextrose 360 mg in 200 mls @ 33.333 mls/hr 05/06/17 10:30 10:46 Nexterone 360 Mg In D5w 200 Ml (Premix) IV 33.333 mls/hr .Q6H SILVIA Administration Protocol 1 MG/MIN Sodium Chloride 1,000 mls @ 999 mls/hr 05/06/17 16:39 Sodium Chloride 0.9% IV 05/06/17 17:39 .Q1H1M STA Sodium Chloride 1,000 mls @ 999 mls/hr 05/06/17 17:45 Sodium Chloride 0.9% IV .Q1H1M SILVIA Metoprolol Tartrate 5 mg 05/06/17 10:00 Lopressor IVP Q6H SILVIA Midazolam HCl 4 mg 05/04/17 18:44 05/06/17 04:40 Versed Inj IVP 4 mg Q4H PRN Administration Agitation Morphine Sulfate 2 mg 05/06/17 12:35 Morphine IVP Q3H PRN Pain, severe (8-10) Nitroglycerin 1 ea 05/02/17 00:00 05/06/17 06:31 Nitro-Bid 2% Oint TOP Not Given 0000,0600,1200,1800 SILVIA Pantoprazole Sodium 40 mg 05/06/17 10:00 05/06/17 10:16 Protonix Inj IVP 40 mg Q12 SILVIA Administration Verapamil HCl 2.5 mg 05/06/17 14:00 Verapamil Inj IVP Q6H PRN for HEAT rate >130 - Patient Studies Lab Studies: Microbiology Studies 05/05/17 03:28 Urine Culture - Final Urine,[place] No Growth (<1,000 CFU/ML) 05/04/17 19:30 Blood Culture - Preliminary Blood NO GROWTH AFTER 24 HOURS 05/04/17 19:00 Blood Culture - Preliminary Blood NO GROWTH AFTER 24 HOURS 04/30/17 19:16 Blood Culture - Final Blood NO GROWTH AFTER 5 DAYS Gram Stain - Final TEST NOT PERFORMED 04/30/17 19:16 Blood Culture - Final Blood NO GROWTH AFTER 5 DAYS Gram Stain - Final TEST NOT PERFORMED Lab Studies 05/06/17 05/06/17 05/06/17 Range/Units 16:51 16:51 15:30 WBC 20.2 H (4.5-11.0) 10^3/ul RBC 2.59 L (3.5-6.1) 10^6/uL Hgb 8.7 L (14.0-18.0) g/dL Hct 25.3 L (42.0-52.0) % MCV 97.7 (80.0-105.0) fl MCH 33.6 (25.0-35.0) pg MCHC 34.4 (31.0-37.0) g/dl RDW 16.1 H (11.5-14.5) % Plt Count 223 (120.0-450.0) 10^3/uL MPV 8.9 (7.0-11.0) fl Gran % 90.1 H (50.0-68.0) % Lymph % (Auto) 3.3 L (22.0-35.0) % [place] % (Auto) 6.5 H (1.0-6.0) % Eos % (Auto) 0.1 L (1.5-5.0) % Baso % (Auto) 0.0 (0.0-3.0) % Gran # 18.16 H (1.4-6.5) Lymph # 0.7 L (1.2-3.4) [place] # 1.3 H (0.1-0.6) Eos # 0.0 (0.0-0.7) Baso # 0.01 (0.0-2.0) K/mm3 PT (9.9-11.8) Seconds INR (0.93-1.08) APTT (23.7-30.8) Seconds pCO2 (35-45) mm/Hg pO2 (80-100) mm/Hg HCO3 (21-28) mmol/L ABG pH (7.35-7.45) ABG Total CO2 (22-28) mmol.L ABG O2 Saturation (95-98) % ABG O2 Content (15-23) ML/dl ABG Base Excess (-2.0-3.0) mmol/L ABG Hemoglobin (11.7-17.4) g/dL ABG Carboxyhemoglobin (0.5-1.5) % POC ABG HHb (Measured) (0-5) % ABG Methemoglobin (0.0-3.0) % ABG O2 Capacity (16-24) mL/dl Hgb O2 Saturation (95.0-98.0) % FiO2 % Sodium (132-148) mmol/L Potassium (3.6-5.0) mmol/L Chloride (98-107) mmol/L Carbon Dioxide (21-33) mmol/L Anion Gap (10-20) BUN (7-21) mg/dL Creatinine (0.8-1.5) mg/dL Est GFR ( Amer) Est GFR (Non-Af Amer) Random Glucose (70-110) mg/dL Lactic Acid 3.4 H (0.7-2.1) mmol/L Calcium (8.4-10.5) mg/dL Phosphorus (2.5-4.5) mg/dL Magnesium (1.7-2.2) mg/dL Total Bilirubin (0.2-1.3) mg/dL AST (17-59) U/L ALT (7-56) U/L Alkaline Phosphatase (38-126) U/L Ammonia (9-33) umol/L Total Creatine Kinase 352 H (35-230) U/L Total Protein (5.8-8.3) g/dL Albumin (3.0-4.8) g/dL Globulin gm/dL Albumin/Globulin Ratio (1.1-1.8) Procalcitonin (0.19-0.49) NG/ML Urine Chloride (32-290) mmol/L 05/06/17 05/06/17 05/06/17 Range/Units 15:30 15:30 05:20 WBC (4.5-11.0) 10^3/ul RBC (3.5-6.1) 10^6/uL Hgb (14.0-18.0) g/dL Hct (42.0-52.0) % MCV (80.0-105.0) fl MCH (25.0-35.0) pg MCHC (31.0-37.0) g/dl RDW (11.5-14.5) % Plt Count (120.0-450.0) 10^3/uL MPV (7.0-11.0) fl Gran % (50.0-68.0) % Lymph % (Auto) (22.0-35.0) % [place] % (Auto) (1.0-6.0) % Eos % (Auto) (1.5-5.0) % Baso % (Auto) (0.0-3.0) % Gran # (1.4-6.5) Lymph # (1.2-3.4) [place] # (0.1-0.6) Eos # (0.0-0.7) Baso # (0.0-2.0) K/mm3 PT (9.9-11.8) Seconds INR (0.93-1.08) APTT (23.7-30.8) Seconds pCO2 29 L (35-45) mm/Hg pO2 80.0 (80-100) mm/Hg HCO3 16.0 L (21-28) mmol/L ABG pH 7.35 (7.35-7.45) ABG Total CO2 16.9 L (22-28) mmol.L ABG O2 Saturation 98.5 H (95-98) % ABG O2 Content 11.6 L (15-23) ML/dl ABG Base Excess -8.6 L (-2.0-3.0) mmol/L ABG Hemoglobin 8.6 L (11.7-17.4) g/dL ABG Carboxyhemoglobin 2.3 H (0.5-1.5) % POC ABG HHb (Measured) 1.4 (0-5) % ABG Methemoglobin 1.3 (0.0-3.0) % ABG O2 Capacity 11.8 L (16-24) mL/dl Hgb O2 Saturation 95.1 (95.0-98.0) % FiO2 40.0 % Sodium 142 (132-148) mmol/L Potassium 4.6 (3.6-5.0) mmol/L Chloride 114 H (98-107) mmol/L Carbon Dioxide 16 L (21-33) mmol/L Anion Gap 17 (10-20) BUN 71 H (7-21) mg/dL Creatinine 2.3 H (0.8-1.5) mg/dL Est GFR ( Amer) 34 Est GFR (Non-Af Amer) 28 Random Glucose 104 (70-110) mg/dL Lactic Acid (0.7-2.1) mmol/L Calcium 7.9 L (8.4-10.5) mg/dL Phosphorus (2.5-4.5) mg/dL Magnesium (1.7-2.2) mg/dL Total Bilirubin 1.1 (0.2-1.3) mg/dL AST 4439 H (17-59) U/L ALT 2762 H (7-56) U/L Alkaline Phosphatase 57 (38-126) U/L Ammonia 22 (9-33) umol/L Total Creatine Kinase (35-230) U/L Total Protein 4.6 L (5.8-8.3) g/dL Albumin 2.2 L (3.0-4.8) g/dL Globulin 2.4 gm/dL Albumin/Globulin Ratio 0.9 L (1.1-1.8) Procalcitonin (0.19-0.49) NG/ML Urine Chloride (32-290) mmol/L 05/06/17 05/06/17 05/06/17 Range/Units 04:45 04:45 04:45 WBC 17.8 H D (4.5-11.0) 10^3/ul RBC 2.76 L (3.5-6.1) 10^6/uL Hgb 9.3 L (14.0-18.0) g/dL Hct 26.5 L (42.0-52.0) % MCV 96.0 (80.0-105.0) fl MCH 33.7 (25.0-35.0) pg MCHC 35.1 (31.0-37.0) g/dl RDW 16.0 H (11.5-14.5) % Plt Count 279 (120.0-450.0) 10^3/uL MPV 8.6 (7.0-11.0) fl Gran % 87.3 H (50.0-68.0) % Lymph % (Auto) 5.2 L (22.0-35.0) % [place] % (Auto) 7.3 H (1.0-6.0) % Eos % (Auto) 0.1 L (1.5-5.0) % Baso % (Auto) 0.1 (0.0-3.0) % Gran # 15.58 H (1.4-6.5) Lymph # 0.9 L (1.2-3.4) [place] # 1.3 H (0.1-0.6) Eos # 0.0 (0.0-0.7) Baso # 0.01 (0.0-2.0) K/mm3 PT 12.3 H (9.9-11.8) Seconds INR 1.14 H (0.93-1.08) APTT 32.9 H (23.7-30.8) Seconds pCO2 (35-45) mm/Hg pO2 (80-100) mm/Hg HCO3 (21-28) mmol/L ABG pH (7.35-7.45) ABG Total CO2 (22-28) mmol.L ABG O2 Saturation (95-98) % ABG O2 Content (15-23) ML/dl ABG Base Excess (-2.0-3.0) mmol/L ABG Hemoglobin (11.7-17.4) g/dL ABG Carboxyhemoglobin (0.5-1.5) % POC ABG HHb (Measured) (0-5) % ABG Methemoglobin (0.0-3.0) % ABG O2 Capacity (16-24) mL/dl Hgb O2 Saturation (95.0-98.0) % FiO2 % Sodium 139 (132-148) mmol/L Potassium 4.3 (3.6-5.0) mmol/L Chloride 112 H (98-107) mmol/L Carbon Dioxide 20 L (21-33) mmol/L Anion Gap 11 (10-20) BUN 60 H (7-21) mg/dL Creatinine 1.7 H (0.8-1.5) mg/dL Est GFR ( Amer) 48 Est GFR (Non-Af Amer) 39 Random Glucose 115 H (70-110) mg/dL Lactic Acid (0.7-2.1) mmol/L Calcium 8.0 L (8.4-10.5) mg/dL Phosphorus 4.5 (2.5-4.5) mg/dL Magnesium 2.0 (1.7-2.2) mg/dL Total Bilirubin 0.6 (0.2-1.3) mg/dL AST 416 H D (17-59) U/L ALT 427 H (7-56) U/L Alkaline Phosphatase 58 (38-126) U/L Ammonia (9-33) umol/L Total Creatine Kinase (35-230) U/L Total Protein 5.0 L (5.8-8.3) g/dL Albumin 2.4 L (3.0-4.8) g/dL Globulin 2.6 gm/dL Albumin/Globulin Ratio 0.9 L (1.1-1.8) Procalcitonin (0.19-0.49) NG/ML Urine Chloride (32-290) mmol/L 05/05/17 05/05/17 Range/Units 11:12 03:28 WBC (4.5-11.0) 10^3/ul RBC (3.5-6.1) 10^6/uL Hgb (14.0-18.0) g/dL Hct (42.0-52.0) % MCV (80.0-105.0) fl MCH (25.0-35.0) pg MCHC (31.0-37.0) g/dl RDW (11.5-14.5) % Plt Count (120.0-450.0) 10^3/uL MPV (7.0-11.0) fl Gran % (50.0-68.0) % Lymph % (Auto) (22.0-35.0) % [place] % (Auto) (1.0-6.0) % Eos % (Auto) (1.5-5.0) % Baso % (Auto) (0.0-3.0) % Gran # (1.4-6.5) Lymph # (1.2-3.4) [place] # (0.1-0.6) Eos # (0.0-0.7) Baso # (0.0-2.0) K/mm3 PT (9.9-11.8) Seconds INR (0.93-1.08) APTT (23.7-30.8) Seconds pCO2 (35-45) mm/Hg pO2 (80-100) mm/Hg HCO3 (21-28) mmol/L ABG pH (7.35-7.45) ABG Total CO2 (22-28) mmol.L ABG O2 Saturation (95-98) % ABG O2 Content (15-23) ML/dl ABG Base Excess (-2.0-3.0) mmol/L ABG Hemoglobin (11.7-17.4) g/dL ABG Carboxyhemoglobin (0.5-1.5) % POC ABG HHb (Measured) (0-5) % ABG Methemoglobin (0.0-3.0) % ABG O2 Capacity (16-24) mL/dl Hgb O2 Saturation (95.0-98.0) % FiO2 % Sodium (132-148) mmol/L Potassium (3.6-5.0) mmol/L Chloride (98-107) mmol/L Carbon Dioxide (21-33) mmol/L Anion Gap (10-20) BUN (7-21) mg/dL Creatinine (0.8-1.5) mg/dL Est GFR ( Amer) Est GFR (Non-Af Amer) Random Glucose (70-110) mg/dL Lactic Acid (0.7-2.1) mmol/L Calcium (8.4-10.5) mg/dL Phosphorus (2.5-4.5) mg/dL Magnesium (1.7-2.2) mg/dL Total Bilirubin (0.2-1.3) mg/dL AST (17-59) U/L ALT (7-56) U/L Alkaline Phosphatase (38-126) U/L Ammonia (9-33) umol/L Total Creatine Kinase (35-230) U/L Total Protein (5.8-8.3) g/dL Albumin (3.0-4.8) g/dL Globulin gm/dL Albumin/Globulin Ratio (1.1-1.8) Procalcitonin 2.34 H (0.19-0.49) NG/ML Urine Chloride 18 L (32-290) mmol/L Laboratory Results - last 24 hr 05/05/17 05/05/17 05/06/17 03:28 11:12 04:45 WBC 17.8 H D RBC 2.76 L Hgb 9.3 L Hct 26.5 L MCV 96.0 MCH 33.7 MCHC 35.1 RDW 16.0 H Plt Count 279 MPV 8.6 Gran % 87.3 H Lymph % (Auto) 5.2 L [place] % (Auto) 7.3 H Eos % (Auto) 0.1 L Baso % (Auto) 0.1 Gran # 15.58 H Lymph # 0.9 L [place] # 1.3 H Eos # 0.0 Baso # 0.01 PT INR APTT pCO2 pO2 HCO3 ABG pH ABG Total CO2 ABG O2 Saturation ABG O2 Content ABG Base Excess ABG Hemoglobin ABG Carboxyhemoglobin POC ABG HHb (Measured) ABG Methemoglobin ABG O2 Capacity Hgb O2 Saturation FiO2 Sodium Potassium Chloride Carbon Dioxide Anion Gap BUN Creatinine Est GFR ( Amer) Est GFR (Non-Af Amer) Random Glucose Lactic Acid Calcium Phosphorus Magnesium Total Bilirubin AST ALT Alkaline Phosphatase Ammonia Total Creatine Kinase Total Protein Albumin Globulin Albumin/Globulin Ratio Procalcitonin 2.34 H Urine Chloride 18 L 05/06/17 05/06/17 05/06/17 04:45 04:45 05:20 WBC RBC Hgb Hct MCV MCH MCHC RDW Plt Count MPV Gran % Lymph % (Auto) [place] % (Auto) Eos % (Auto) Baso % (Auto) Gran # Lymph # [place] # Eos # Baso # PT 12.3 H INR 1.14 H APTT 32.9 H pCO2 29 L pO2 80.0 HCO3 16.0 L ABG pH 7.35 ABG Total CO2 16.9 L ABG O2 Saturation 98.5 H ABG O2 Content 11.6 L ABG Base Excess -8.6 L ABG Hemoglobin 8.6 L ABG Carboxyhemoglobin 2.3 H POC ABG HHb (Measured) 1.4 ABG Methemoglobin 1.3 ABG O2 Capacity 11.8 L Hgb O2 Saturation 95.1 FiO2 40.0 Sodium 139 Potassium 4.3 Chloride 112 H Carbon Dioxide 20 L Anion Gap 11 BUN 60 H Creatinine 1.7 H Est GFR ( Amer) 48 Est GFR (Non-Af Amer) 39 Random Glucose 115 H Lactic Acid Calcium 8.0 L Phosphorus 4.5 Magnesium 2.0 Total Bilirubin 0.6 AST 416 H D ALT 427 H Alkaline Phosphatase 58 Ammonia Total Creatine Kinase Total Protein 5.0 L Albumin 2.4 L Globulin 2.6 Albumin/Globulin Ratio 0.9 L Procalcitonin Urine Chloride 05/06/17 05/06/17 05/06/17 15:30 15:30 15:30 WBC RBC Hgb Hct MCV MCH MCHC RDW Plt Count MPV Gran % Lymph % (Auto) [place] % (Auto) Eos % (Auto) Baso % (Auto) Gran # Lymph # [place] # Eos # Baso # PT INR APTT pCO2 pO2 HCO3 ABG pH ABG Total CO2 ABG O2 Saturation ABG O2 Content ABG Base Excess ABG Hemoglobin ABG Carboxyhemoglobin POC ABG HHb (Measured) ABG Methemoglobin ABG O2 Capacity Hgb O2 Saturation FiO2 Sodium 142 Potassium 4.6 Chloride 114 H Carbon Dioxide 16 L Anion Gap 17 BUN 71 H Creatinine 2.3 H Est GFR ( Amer) 34 Est GFR (Non-Af Amer) 28 Random Glucose 104 Lactic Acid 3.4 H Calcium 7.9 L Phosphorus Magnesium Total Bilirubin 1.1 AST 4439 H ALT 2762 H Alkaline Phosphatase 57 Ammonia 22 Total Creatine Kinase Total Protein 4.6 L Albumin 2.2 L Globulin 2.4 Albumin/Globulin Ratio 0.9 L Procalcitonin Urine Chloride 05/06/17 05/06/17 16:51 16:51 WBC 20.2 H RBC 2.59 L Hgb 8.7 L Hct 25.3 L MCV 97.7 MCH 33.6 MCHC 34.4 RDW 16.1 H Plt Count 223 MPV 8.9 Gran % 90.1 H Lymph % (Auto) 3.3 L [place] % (Auto) 6.5 H Eos % (Auto) 0.1 L Baso % (Auto) 0.0 Gran # 18.16 H Lymph # 0.7 L [place] # 1.3 H Eos # 0.0 Baso # 0.01 PT INR APTT pCO2 pO2 HCO3 ABG pH ABG Total CO2 ABG O2 Saturation ABG O2 Content ABG Base Excess ABG Hemoglobin ABG Carboxyhemoglobin POC ABG HHb (Measured) ABG Methemoglobin ABG O2 Capacity Hgb O2 Saturation FiO2 Sodium Potassium Chloride Carbon Dioxide Anion Gap BUN Creatinine Est GFR ( Amer) Est GFR (Non-Af Amer) Random Glucose Lactic Acid Calcium Phosphorus Magnesium Total Bilirubin AST ALT Alkaline Phosphatase Ammonia Total Creatine Kinase 352 H Total Protein Albumin Globulin Albumin/Globulin Ratio Procalcitonin Urine Chloride EKG/Cardiology Studies: Cardiology / EKG Studies 05/06/17 06:45 EKG [ELECTROCARDIOGRAM] Stat Comment: Reason For Exam: Tachycardia Critical Care Progress Note - Nutrition Nutrition: Nutrition Category Date Time Status NPO Diet [DIET] Diets 05/04/17 Breakfast Ordered Attending/Attestation - Attestation I have personally seen and examined this patient.: Yes I have fully participated in the care of the patient.: Yes I have reviewed all pertinent clinical information: Yes Notes (Text): 05/06/17 17:22 Poor mental status on PS trial today. Off sedation x 6 hrs. Not following commands or moving. ABle to PS w/o problems. Due to depressed mental state, Labs were sent and found to have Transaminitis , worsening JADEN and lactate. New Dark stools noted this afternoon, possibly from recent peptic ulcer bleed. STAT ct head and abd/ pelvis Labs pending from Troponin, hepatitis, ck etc. Tx to keep hgb> 7. Platelets > 50 k INR> 2 scd off all asprin or plavix. poor prognosis w/ abd wound in place w/ minimal MAX output. cc time 55 min
--- NOTE | 2017-05-06 15:22 | CP.PCM.CON ---
History of Present Illness - History of Present Illness History of Present Illness: Palliative consult requested by Dr Mario Bowser Reason: Goals of care 77 year old male with history of COPD, back pain worsened with increased lethargy. Work up revealed hyponatremia,hypokalemia. The patient reported a 40 lb weight loss, decreased appetite and intermittent dizziness over the past few months. Patient complains of abdominal pain H/H dropped> attributed to GI bleed. CT scan showed a large amount of free air in intrapertoneal consistent with GI perforation. He had emergent lap with repair of perforate viscus Recent chest CT showed moderate sized pleural effusions L>R, bilateral infiltrates. He remains intubated. He has since developed rapid irregular heart rate requiring Amiodarone drip. PMHX: COPD,chronic back pain ,weight loss,bilateral knee surgery, colon polyps Social History: Smoked up until this admission, daily but stopped two months ago ,denied drug use. Lives alone Family History: Unknown Advance Care Planning:The patient does not have an Advanced Directive. Review of Systems: As per HPI, patient is intubated/sedated . Past Patient History - Past Social History Smoking Status: Heavy Smoker > 10 Cigarettes Daily - CARDIAC Hx Cardiac Disorders: No - PULMONARY Hx Chronic Obstructive Pulmonary Disease (COPD): Yes - NEUROLOGICAL Hx Neurological Disorder: No - HEENT Hx HEENT Problems: Yes (glasses) - RENAL Hx Chronic Kidney Disease: No - ENDOCRINE/METABOLIC Hx Endocrine Disorders: No - HEMATOLOGICAL/ONCOLOGICAL Hx Blood Disorders: No - INTEGUMENTARY Hx Dermatological Problems: Yes Hx Psoriasis: Yes Other/Comment: large scratch left abd, rle multiple scabs, dry skin to scalp, eliud 1.5cm x 1.5cm round purple growth, abrasion and skin discoloratin l elbow, lle dry red scabs x 2 - MUSCULOSKELETAL/RHEUMATOLOGICAL Hx Arthritis: Yes (hands fingers) - GASTROINTESTINAL Hx Gastrointestinal Disorders: No - GENITOURINARY/GYNECOLOGICAL Hx Genitourinary Disorders: No - PSYCHIATRIC Hx Substance Use: No (denies) - SURGICAL HISTORY Hx Musculoskeletal Surgery: Yes - ANESTHESIA Hx Anesthesia: No Meds Allergies/Adverse Reactions: Allergies Allergy/AdvReac Type Severity Reaction Status Date / Time No Known Allergies Allergy Verified 04/30/17 12:28 - Medications Medications: Current Medications Albuterol/Ipratropium (Duoneb 3 Mg/0.5 Mg (3 Ml) Ud) 3 ml IH [id number] [facility] Last Admin: 05/06/17 13:37 Dose: 3 ml Amlodipine Besylate (Norvasc) 10 mg PO DAILY [facility] Last Admin: 05/03/17 10:25 Dose: Not Given Chlorhexidine Gluconate (Peridex) 15 ml PO BID [facility] Last Admin: 05/05/17 17:14 Dose: 15 ml Heparin Sodium (Porcine) (Heparin) 5,000 units SC Q12 [facility] PRN Reason: Protocol Hydralazine HCl (Apresoline) 10 mg IVP Q6 PRN PRN Reason: SBP> 160 Last Admin: 05/04/17 17:42 Dose: 10 mg NOREPINEPHRINE BIT/0.9 % NACL (Levophed 4 Mg/ 250 Ml Ns Premixed) 4 mg in 250 mls @ 15 mls/hr IV .[id number] PRN; Protocol; 4 MCG/MIN PRN Reason: TITRATE PER MD ORDER Last Titration: 05/05/17 00:05 Dose: 0 mcg/min, 0 mls/hr Fentanyl Citrate (Fentanyl Citrate/Sodium Chloride 1 Mg/100 Ml) 1,000 mcg in 100 mls @ 2 mls/hr IV .Q24H [facility] PRN Reason: Protocol Last Titration: 05/06/17 05:00 Dose: 3 ml/hr, 3 mls/hr Meropenem 1g/NS 100mL IVPB (Meropenem 1g/Ns 100ml Ivpb) 1 gm in 100 mls @ 100 mls/hr IVPB Q12 [facility] PRN Reason: Protocol Stop: 05/13/17 10:16 Last Admin: 05/06/17 10:15 Dose: 100 mls/hr Sodium Chloride (Sodium Chloride 0.9%) 1,000 mls @ 125 mls/hr IV .Q8H [facility] Amiodarone HCl/Dextrose (Nexterone 360 Mg In D5w 200 Ml (Premix)) 360 mg in 200 mls @ 33.333 mls/hr IV .Q6H [facility]; 1 MG/MIN PRN Reason: Protocol Last Admin: 05/06/17 10:46 Dose: 33.333 mls/hr Metoprolol Tartrate (Lopressor) 5 mg IVP Q6H [facility] Midazolam HCl (Versed Inj) 4 mg IVP Q4H PRN PRN Reason: Agitation Last Admin: 05/06/17 04:40 Dose: 4 mg Morphine Sulfate (Morphine) 2 mg IVP Q3H PRN PRN Reason: Pain, severe (8-10) Nitroglycerin (Nitro-Bid 2% Oint) 1 ea TOP 0000,0600,1200,1800 [facility] Last Admin: 05/06/17 06:31 Dose: Not Given Pantoprazole Sodium (Protonix Inj) 40 mg IVP Q12 [facility] Last Admin: 05/06/17 10:16 Dose: 40 mg Verapamil HCl (Verapamil Inj) 2.5 mg IVP Q6H PRN PRN Reason: for HEAT rate >130 Physical Exam - Constitutional Appears: Chronically Ill - Head Exam Head Exam: NORMAL INSPECTION - Eye Exam Eye Exam: Normal appearance, PERRL - ENT Exam ENT Exam: Mucous Membranes Moist - Respiratory Exam Respiratory Exam: Decreased Breath Sounds Additional comments: intubated - Cardiovascular Exam Cardiovascular Exam: Tachycardia, Irregular Rhythm, +S1, +S2 - GI/Abdominal Exam GI & Abdominal Exam: Diminished Bowel Sounds, Soft - Extremities Exam Extremities exam: Positive for: normal capillary refill - Back Exam Back exam: NORMAL INSPECTION - Neurological Exam Neurological exam: Altered - Skin Skin Exam: Dry, Warm - Additional Findings Additional findings: Palliative performance scale rating 20 % Results - Vital Signs Recent Vital Signs: Last Vital Signs Temp 98.4 F 05/06/17 06:00 Pulse 122 H 05/06/17 10:04 Resp 22 05/06/17 07:58 BP 80/40 L 05/06/17 10:04 Pulse Ox 100 05/06/17 07:58 - Labs Result Diagrams: 05/06/17 04:45 05/06/17 04:45 Labs: Laboratory Results - last 24 hr 05/05/17 05/05/17 05/06/17 03:28 11:12 04:45 WBC 17.8 H D RBC 2.76 L Hgb 9.3 L Hct 26.5 L MCV 96.0 MCH 33.7 MCHC 35.1 RDW 16.0 H Plt Count 279 MPV 8.6 Gran % 87.3 H Lymph % (Auto) 5.2 L [place] % (Auto) 7.3 H Eos % (Auto) 0.1 L Baso % (Auto) 0.1 Gran # 15.58 H Lymph # 0.9 L [place] # 1.3 H Eos # 0.0 Baso # 0.01 PT INR APTT pCO2 pO2 HCO3 ABG pH ABG Total CO2 ABG O2 Saturation ABG O2 Content ABG Base Excess ABG Hemoglobin ABG Carboxyhemoglobin POC ABG HHb (Measured) ABG Methemoglobin ABG O2 Capacity Hgb O2 Saturation FiO2 Sodium Potassium Chloride Carbon Dioxide Anion Gap BUN Creatinine Est GFR ( Amer) Est GFR (Non-Af Amer) Random Glucose Calcium Phosphorus Magnesium Total Bilirubin AST ALT Alkaline Phosphatase Total Protein Albumin Globulin Albumin/Globulin Ratio Procalcitonin 2.34 H Urine Chloride 18 L 05/06/17 05/06/17 05/06/17 04:45 04:45 05:20 WBC RBC Hgb Hct MCV MCH MCHC RDW Plt Count MPV Gran % Lymph % (Auto) [place] % (Auto) Eos % (Auto) Baso % (Auto) Gran # Lymph # [place] # Eos # Baso # PT 12.3 H INR 1.14 H APTT 32.9 H pCO2 29 L pO2 80.0 HCO3 16.0 L ABG pH 7.35 ABG Total CO2 16.9 L ABG O2 Saturation 98.5 H ABG O2 Content 11.6 L ABG Base Excess -8.6 L ABG Hemoglobin 8.6 L ABG Carboxyhemoglobin 2.3 H POC ABG HHb (Measured) 1.4 ABG Methemoglobin 1.3 ABG O2 Capacity 11.8 L Hgb O2 Saturation 95.1 FiO2 40.0 Sodium 139 Potassium 4.3 Chloride 112 H Carbon Dioxide 20 L Anion Gap 11 BUN 60 H Creatinine 1.7 H Est GFR ( Amer) 48 Est GFR (Non-Af Amer) 39 Random Glucose 115 H Calcium 8.0 L Phosphorus 4.5 Magnesium 2.0 Total Bilirubin 0.6 AST 416 H D ALT 427 H Alkaline Phosphatase 58 Total Protein 5.0 L Albumin 2.4 L Globulin 2.6 Albumin/Globulin Ratio 0.9 L Procalcitonin Urine Chloride Assessment & Plan - Assessment and Plan (Free Text) Assessment: 77 michaelle old male with hsity of COPD, back pain, weigh loss,alcohol use who was admitted with lethargy, hyponatremia, hypokalemia, GI bleed, anemia, GI perforation s/p viscus repair, respiratory failure and cardiac arrhythmia. The patient does not have an Advanced Directive. There is no next of kin listed in patient medical record. Attempt to reach friend who is listed as contact are unsuccessful. Intend tis to discuss goals of care with next of kin or health care surrogate. Elsa PLUNKETT will try to contact [facility] Plan: Advance care planning/Goals of care
[2017-05-06 15:43] LABS: ALB/GLOB RATIO 0.9 (1.1-1.8); BILIRUBIN,TOTAL 1.1 mg/dL (0.2-1.3); CALCIUM 7.9 mg/dL (8.4-10.5); POTASSIUM 4.6 mmol/L (3.6-5.0); TOTAL PROTEIN 4.6 g/dL (5.8-8.3)
[2017-05-06] MEDS ORDERED: Sodium Chloride 0.9% 1,000 ML IV STA (16:39)
[2017-05-06 17:06] LABS: BASO # 0.01 K/mm3 (0.0-2.0); EOS % 0.1 % (1.5-5.0); GRAN # 18.16 (1.4-6.5); GRAN % 90.1 % (50.0-68.0); HEMATOCRIT 25.3 % (42.0-52.0); LYMPH # 0.7 (1.2-3.4); LYMPH % 3.3 % (22.0-35.0); MEAN CELL VOLUME 97.7 fl (80.0-105.0); MEAN CORPUSCULAR HEMOGLOBIN 33.6 pg (25.0-35.0); MEAN CORPUSCULAR HGB CONC 34.4 g/dl (31.0-37.0); MEAN PLATELET VOLUME 8.9 fl (7.0-11.0); MONO # 1.3 (0.1-0.6); MONO % 6.5 % (1.0-6.0); PLATELET COUNT 223 10^3/uL (120.0-450.0); RED CELL DISTRIBUTION WIDTH 16.1 % (11.5-14.5); WHITE BLOOD COUNT 20.2 10^3/ul (4.5-11.0)
[2017-05-06 17:35] LABS: BAND 9 % (0-2); NEUTROPHIL 86 % (50.0-70.0); PLATELET ESTIMATE NORMAL (NORMAL)
[2017-05-06 17:40] LABS: TROPONIN I 2.83 ng/mL
--- NOTE | 2017-05-06 17:57 | CT ---
PROCEDURE: CT HEAD WITHOUT CONTRAST. HISTORY: change in neuro exam COMPARISON: Comparison is made to the previous exam dated 04/30/2017 TECHNIQUE: Axial computed tomography images were obtained through the head/brain without intravenous contrast. Radiation dose: Total exam DLP = 1646.89 mGy-cm. This CT exam was performed using one or more of the following dose reduction techniques: Automated exposure control, adjustment of the mA and/or kV according to patient size, and/or use of iterative reconstruction technique. FINDINGS: HEMORRHAGE: No intracranial hemorrhage. BRAIN: There is hazy hypodensity at the left posterior parietal occipital lobe with effacement of the leone-white matter differentiation suspicious for acute infarct. Hypodensity also noted at the right posterior parietal and occipital lobe. Mild atrophy and moderate chronic microvascular ischemic disease are again seen. VENTRICLES: Unremarkable. No hydrocephalus. CALVARIUM: Unremarkable. PARANASAL SINUSES: Unremarkable as visualized. No significant inflammatory changes. MASTOID AIR CELLS: Unremarkable as visualized. No inflammatory changes. OTHER FINDINGS: None. IMPRESSION: Foci of hypodensity at the posterior parietal and occipital lobes seen bilaterally larger on the left suspicious for acute infarct. If clinically warranted and if not contraindicated further assessment by MRI is suggested.
--- NOTE | 2017-05-06 18:13 | CT ---
PROCEDURE: CT Abdomen and Pelvis without intravenous contrast HISTORY: recent ab surg, melena COMPARISON: Comparison is made to the previous study dated 05/04/2017 TECHNIQUE: Axial and reformatted coronal and sagittal CT images of the abdomen and pelvis were obtained without IV or oral contrast administration.. Contrast Dose: 0 Radiation dose: Total exam DLP = 923.5 mGy-cm. This CT exam was performed using one or more of the following dose reduction techniques: Automated exposure control, adjustment of the mA and/or kV according to patient size, and/or use of iterative reconstruction technique. FINDINGS: LOWER THORAX: Patchy foci of ground-glass opacity noted. Partial collapse of the right lower lobe and almost complete collapse of the left lower lobe are noted. Bilateral pleural effusions are again noted. LIVER: No significant interval change in the liver since the previous exam. GALLBLADDER AND BILE DUCTS: No evidence of acute cholecystitis PANCREAS: Unremarkable. No gross lesion or ductal dilatation. SPLEEN: Unremarkable. ADRENALS: Unremarkable. No mass. KIDNEYS AND URETERS: The right kidney is larger than the left. No evidence of hydronephrosis. VASCULATURE: Unremarkable. No aortic aneurysm. BOWEL: Mildly dilated large bowel loops contains air-fluid level. No definite evidence of obstructing mass lesion in this limited study. No evidence of small bowel obstruction. Scattered colonic diverticulosis seen without evidence of diverticulitis. APPENDIX: No evidence of appendicitis. PERITONEUM: Residual small amount of free air seen in the abdomen. No evidence of significant free fluid. Postsurgical changes and surgical drainage is seen at the anterior aspect of the abdomen. LYMPH NODES: Unremarkable. No enlarged lymph nodes. BLADDER: Rosario catheter seen in the bladder. REPRODUCTIVE: The prostate is mildly enlarged. BONES: No acute fracture. OTHER FINDINGS: Mild soft tissue edema. IMPRESSION: Limited assessment without IV or oral contrast administration. Mildly dilated large bowel loops contain multiple air-fluid level without evidence of obstructing mass in this limited study. Postsurgical changes. Residual small amount of free air in the abdomen. Persistent bilateral pleural effusion and bilateral lower lobe partial consolidation/ atelectasis.
[2017-05-06] MEDS ORDERED: Fentanyl 1000mcg/100ml NS 1,000 MCG/100 ML BAG IV PRN (19:44)
[2017-05-06 20:36] LABS: TROPONIN I 3.3 ng/mL
--- NOTE | 2017-05-06 20:55 | PN ---
DATE: 05/06/2017 REASON FOR THE CONSULTATION: Followup non-ST segment myocardial infarction, acute abdomen, status post gastric perforation, status post exploratory laparotomy, wedge resection of the stomach, GI bleed, postop went into atrial fibrillation with rapid rate. SUBJECTIVE: The patient remains intubated, on vent, sedated. PHYSICAL EXAMINATION: As follows: VITAL SIGNS: Atrial fibrillation with rapid ventricular rate, heart rate 150, blood pressure 95/38. HEENT: PERRLA. Extraocular muscles are intact. NECK: Supple. No carotid bruits. No thyromegaly. CHEST: Clear to auscultation. HEART: S1 and S2, regular. ABDOMEN: Soft. EXTREMITIES: Clubbing and cyanosis negative. LABORATORY DATA: Blood workup as follows: WBC 17.1, hemoglobin 9.7, hematocrit 26.5, platelet count 279. Chemistry showed sodium 113, potassium 4.3, chloride 112, carbon dioxide 20, anion gap of 11, BUN 16, creatinine 1.7. AST 416, ALT 426. IMPRESSION: Acute kidney injury, acute liver injury, elevated transaminases, atrial fibrillation postoperative, status gastrointestinal bleed, status post acute abdomen, status post perforation of the hollow viscus, perforation of stomach, status post exploratory laparotomy and repair, non-ST segment myocardial infarction prior to exploratory laparotomy, new onset atrial fibrillation with rapid rate, history of diverticulum transverse colon excision during exploratory laparotomy. The patient has also history of hyponatremia, prior to that was on 3% saline, and hyponatremia corrected. Most recently, the patient had echocardiography done that showed ejection fraction 55%, [id number] mitral regurgitation, and mild tricuspid regurgitation. RECOMMENDATIONS: Continue IV fluid. We will give Cardizem or verapamil. We will try to avoid amiodarone drip because of increased transaminases. Continue IV fluid, normal saline, with verapamil 2.5 p.r.n. for heart rate more than 120. Not a candidate for anticoagulation because of very shortly started atrial fibrillation, also the patient had a recent postop exploratory laparotomy and GI bleed. Once the patient starts p.o., we will put IV verapamil p.r.n. We will follow oral. The patient's condition is critical. penitentiary prognosis is guarded. Once the patient's blood pressure is maintained, we will put IV Lopressor q.6. We will discontinue p.o. Lopressor anyway because the patient is not taking p.o. Lopressor as he is n.p.o. status post abdominal surgery. Supa Nick MD
--- NOTE | 2017-05-06 21:33 | CARD ---
APPROVED REPORT EKG Measurement Heart [id number] <Conclusion> Atrial fibrillation with rapid ventricular response Low voltage QRS Nonspecific ST abnormality, probably digitalis effect Abnormal ECG
[2017-05-06 21:38] LABS: ALB/GLOB RATIO 0.9 (1.1-1.8); BILIRUBIN,TOTAL 1.2 mg/dL (0.2-1.3); CALCIUM 7.4 mg/dL (8.4-10.5); POTASSIUM 4.6 mmol/L (3.6-5.0); TOTAL PROTEIN 4.4 g/dL (5.8-8.3)
[2017-05-06 21:42] LABS: BASO # 0.02 K/mm3 (0.0-2.0); BASO % 0.1 % (0.0-3.0); GRAN # 19.55 (1.4-6.5); GRAN % 89.5 % (50.0-68.0); LYMPH # 1.2 (1.2-3.4); LYMPH % 5.3 % (22.0-35.0); MEAN CELL VOLUME 97.9 fl (80.0-105.0); MEAN CORPUSCULAR HEMOGLOBIN 33.6 pg (25.0-35.0); MEAN CORPUSCULAR HGB CONC 34.3 g/dl (31.0-37.0); MEAN PLATELET VOLUME 8.9 fl (7.0-11.0); MONO # 1.1 (0.1-0.6); MONO % 5.1 % (1.0-6.0); RED CELL DISTRIBUTION WIDTH 16.1 % (11.5-14.5); WHITE BLOOD COUNT 21.8 10^3/ul (4.5-11.0)
[2017-05-06 21:56] LABS: HEMATOCRIT 23.6 % (42.0-52.0)
[2017-05-06 23:07] LABS: INR 2.19 (0.93-1.08)
[2017-05-07 01:21] LABS: ARTERIAL BLOOD GAS HCO3 10.3 mmol/L (21-28); ARTERIAL BLOOD GAS PH 7.28 (7.35-7.45)
[2017-05-07] MEDS ORDERED: Sodium Chloride 0.9% 1,000 ML IV STA (02:01)
[2017-05-07] MEDS ORDERED: Sodium Bicarbonate (8.4%) 50 Meq Syringe IVP ONE (02:02)
[2017-05-07] MEDS ORDERED: Sodium Chloride 0.9% 1,000 ML IV SCH ×2 (02:15→06:00)
[2017-05-07] MEDS: NOREPINEPHRINE BIT/0.9 % NACL 4 MG/250 ML BAG IV PRN (02:45)
[2017-05-07] MEDS: Nitroglycerin 2% Ointment Foilpak UD TOP SCH ×3 (06:55→17:36)
[2017-05-07 06:59] LABS: BASO # 0.02 K/mm3 (0.0-2.0); BASO % 0.1 % (0.0-3.0); GRAN # 19.74 (1.4-6.5); GRAN % 87.4 % (50.0-68.0); HEMATOCRIT 30.3 % (42.0-52.0); LYMPH # 1.5 (1.2-3.4); LYMPH % 6.6 % (22.0-35.0); MEAN CELL VOLUME 94.1 fl (80.0-105.0); MEAN PLATELET VOLUME 9.2 fl (7.0-11.0); MONO # 1.3 (0.1-0.6); MONO % 5.9 % (1.0-6.0); RED CELL DISTRIBUTION WIDTH 16.2 % (11.5-14.5); WHITE BLOOD COUNT 22.6 10^3/ul (4.5-11.0)
[2017-05-07 07:02] LABS: INR 2.11 (0.93-1.08)
[2017-05-07] MEDS: Albuterol-Ipratrop 3 mg / 0.5 (3 ml) UD IH SCH ×3 (07:16→20:48)
[2017-05-07 07:20] LABS: ALB/GLOB RATIO 0.9 (1.1-1.8); BILIRUBIN,TOTAL 1.3 mg/dL (0.2-1.3); CALCIUM 7.4 mg/dL (8.4-10.5); TOTAL PROTEIN 4.6 g/dL (5.8-8.3)
--- NOTE | 2017-05-07 07:50 | RAD ---
HISTORY: s/p tlc insertion COMPARISON: Portable chest 05/06/2017. FINDINGS: Interval right center venous lines has been placed by an apparent internal jugular approach with tip terminating at the superior vena cava. Endotracheal tube and NG tube are unchanged in position. LUNGS: Prominent interval improvement in right basilar airspace disease with moderate residual noted at the left base posterior to the heart. PLEURA: No significant pleural effusion identified, no pneumothorax apparent. CARDIOVASCULAR: Normal. OSSEOUS STRUCTURES: No significant abnormalities. VISUALIZED UPPER ABDOMEN: Normal. OTHER FINDINGS: None. IMPRESSION: Diminishing right basilar infiltrate with trace residual noted. Minimal improvement in left basilar airspace disease. Right center venous line identified in good apparent position. No pneumothorax.
[2017-05-07] MEDS ORDERED: diltiaZEM IVPB 100mg in NS 100 ML IV PRN (07:57)
[2017-05-07 08:08] LABS: ABG MECHANICAL RATE 20; ARTERIAL BLOOD GAS HCO3 14.7 mmol/L (21-28); ARTERIAL BLOOD GAS PH 7.36 (7.35-7.45); ATERIAL BLOOD GAS PEEP 5
--- NOTE | 2017-05-07 08:32 | CP.PCM.PN ---
Subjective - Date & Time of Evaluation Date of Evaluation: 05/07/17 Time of Evaluation: 08:20 - Subjective Subjective: Still on the ventilator, no fevers overnight, still with bloody and sanguinous fluid from the abdominal drain and flexiseal rectal tube. Objective - Vital Signs/Intake and Output Vital Signs (last 24 hours): Temp Pulse Resp BP Pulse Ox 97.9 F 116 H 20 124/63 88 L 05/07/17 05:36 05/07/17 05:30 05/07/17 04:00 05/07/17 05:30 05/07/17 05:30 Intake and Output: 05/06/17 05/07/17 18:59 06:59 Intake Total 3100 2450 Output Total 290 560 Balance 2810 1890 - Medications Medications: Current Medications Albuterol/Ipratropium (Duoneb 3 Mg/0.5 Mg (3 Ml) Ud) 3 ml IH [id number] [facility] Last Admin: 05/06/17 19:35 Dose: 3 ml Amlodipine Besylate (Norvasc) 10 mg PO DAILY [facility] Last Admin: 05/03/17 10:25 Dose: Not Given Chlorhexidine Gluconate (Peridex) 15 ml PO BID [facility] Last Admin: 05/05/17 17:14 Dose: 15 ml Hydralazine HCl (Apresoline) 10 mg IVP Q6 PRN PRN Reason: SBP> 160 Last Admin: 05/04/17 17:42 Dose: 10 mg Meropenem 1g/NS 100mL IVPB (Meropenem 1g/Ns 100ml Ivpb) 1 gm in 100 mls @ 100 mls/hr IVPB Q12 [facility] PRN Reason: Protocol Stop: 05/13/17 10:16 Last Admin: 05/06/17 22:07 Dose: 100 mls/hr Sodium Chloride (Sodium Chloride 0.9%) 1,000 mls @ 125 mls/hr IV .Q8H [facility] Amiodarone HCl/Dextrose (Nexterone 360 Mg In D5w 200 Ml (Premix)) 360 mg in 200 mls @ 33.333 mls/hr IV .Q6H [facility]; 1 MG/MIN PRN Reason: Protocol Last Admin: 05/06/17 16:30 Dose: Not Given Sodium Chloride (Sodium Chloride 0.9%) 1,000 mls @ 999 mls/hr IV .Q1H1M [facility] Fentanyl Citrate (Fentanyl Citrate/Sodium Chloride 1 Mg/100 Ml) 1,000 mcg in 100 mls @ 5 mls/hr IV .Q20H PRN; Protocol; 50 MCG/HR PRN Reason: TITRATE PER MD ORDER NOREPINEPHRINE BIT/0.9 % NACL (Levophed 4 Mg/ 250 Ml Ns Premixed) 4 mg in 250 mls @ 15 mls/hr IV .[id number] PRN; Protocol; 4 MCG/MIN PRN Reason: TITRATE PER MD ORDER Sodium Chloride (Sodium Chloride 0.9%) 1,000 mls @ 100 mls/hr IV .Q10H [facility] Metoprolol Tartrate (Lopressor) 5 mg IVP Q6H [facility] Last Admin: 05/06/17 17:34 Dose: Not Given Midazolam HCl (Versed Inj) 4 mg IVP Q4H PRN PRN Reason: Agitation Last Admin: 05/06/17 04:40 Dose: 4 mg Morphine Sulfate (Morphine) 2 mg IVP Q3H PRN PRN Reason: Pain, severe (8-10) Nitroglycerin (Nitro-Bid 2% Oint) 1 ea TOP 0000,0600,1200,1800 [facility] Last Admin: 05/06/17 19:57 Dose: Not Given Pantoprazole Sodium (Protonix Inj) 40 mg IVP Q12 [facility] Last Admin: 05/06/17 22:25 Dose: 40 mg Verapamil HCl (Verapamil Inj) 2.5 mg IVP Q6H PRN PRN Reason: for HEAT rate >130 - Labs Labs: 05/06/17 21:25 05/06/17 21:25 PT 24.2 SECONDS (9.4-12.5) H 05/06/17 22:53 INR 2.19 (0.93-1.08) H 05/06/17 22:53 APTT 32.9 Seconds (23.7-30.8) H 05/06/17 04:45 - Constitutional Appears: Other (intubated, sedated) - Head Exam Head Exam: NORMAL INSPECTION - ENT Exam Additional comments: ET tube in place - Neck Exam Additional comments: right internal jugular central venous catheter in place Assessment and Plan - Assessment and Plan (Free Text) Plan: Assessment Systemic Inflammatory Response Syndrome, probably septic shock and cardiogenic shock with ventilator-dependent respiratory failure, renal failure, acute shock liver post-op due to perforated gastric ulcer S/P ex-lap and gastric wedge resection POD #3, R/O bilateral lower lobe aspiration pneumonia in a patient still with ventilator-dependent respiratory failure post-op colon polyps COPD S/P bilateral knee surgery Plan continue Merrem day 3; repeat cultures have been negative; PCT is elevated; reviewed repeat CT A/P from yesterday which continues to show bilateral lower lobe consolidations / lung collapse will continue to monitor MAX drain output monitor and trend liver enzymes, Troponins - discussed with Dr. Rivera (ICU it sales consultant) - Amidarone drip has been held for now - will continue Merrem for now despite increasing liver enzymes since he has septic shock (ie. benefit currently outweighs risk) check stool for C. diff. overall prognosis is poor will continue to monitor clinically
[2017-05-07] MEDS: Chlorhexidine 0.12% Oral Sol 480 ml Bot PO SCH ×3 (11:00→17:36)
[2017-05-07 11:07] LABS: BASO # 0.03 K/mm3 (0.0-2.0); BASO % 0.1 % (0.0-3.0); EOS % 0.2 % (1.5-5.0); GRAN # 18.46 (1.4-6.5); GRAN % 86.9 % (50.0-68.0); HEMATOCRIT 30.9 % (42.0-52.0); LYMPH # 1.7 (1.2-3.4); MEAN CELL VOLUME 93.6 fl (80.0-105.0); MEAN CORPUSCULAR HGB CONC 35.3 g/dl (31.0-37.0); MEAN PLATELET VOLUME 9.2 fl (7.0-11.0); MONO % 4.8 % (1.0-6.0); RED CELL DISTRIBUTION WIDTH 16.3 % (11.5-14.5); WHITE BLOOD COUNT 21.2 10^3/ul (4.5-11.0)
[2017-05-07 11:18] LABS: ALB/GLOB RATIO 0.8 (1.1-1.8); BILIRUBIN,TOTAL 1.2 mg/dL (0.2-1.3); CALCIUM 7.4 mg/dL (8.4-10.5); POTASSIUM 3.9 mmol/L (3.6-5.0); TOTAL PROTEIN 4.6 g/dL (5.8-8.3)
[2017-05-07 11:25] LABS: INR 1.88 (0.93-1.08)
[2017-05-07] MEDS: Dexmedetomidine HCl 4mcg/ml 400 MCG/100 ML BOTTLE IV PRN (12:00)
--- NOTE | 2017-05-07 12:49 | CP.PCM.PN ---
<Ana Freeman - Last Filed: 05/07/17 12:45> Subjective - Date & Time of Evaluation Date of Evaluation: 05/07/17 Time of Evaluation: 10:50 - Subjective Subjective: Seen and examined at the bedside earlier today, the chart was reviewed. Patient remains intubated with NG tube to suction draining bile colored secretions, the patient also has a rectal drain for watery black stool. Patient opens eyes at times but is sedated. this patient had a head CT done yesterday and is suspicious for acute infarcts, he also had a repeat CT scan of abdomen and pelvis which showed bilateral effusion and bilateral lower lobe consolidation as well as postsurgical changes in the abdomen. It did show dilated loops of the large bowel but no obstruction. Repeat chest x-ray was done earlier this morning and that showed right bibasilar infiltrates decrease with minimal improvement. Objective - Vital Signs/Intake and Output Vital Signs (last 24 hours): Temp Pulse Resp BP Pulse Ox 97.9 F 94 H 30 H 137/63 97 05/07/17 05:36 05/07/17 08:11 05/07/17 07:26 05/07/17 08:11 05/07/17 07:26 Intake and Output: 05/07/17 05/07/17 06:59 18:59 Intake Total 2450 66.5 Output Total 560 Balance 1890 66.5 - Medications Medications: Current Medications Albuterol/Ipratropium (Duoneb 3 Mg/0.5 Mg (3 Ml) Ud) 3 ml IH [id number] [facility] Last Admin: 05/07/17 07:16 Dose: 3 ml Amlodipine Besylate (Norvasc) 10 mg PO DAILY [facility] Last Admin: 05/03/17 10:25 Dose: Not Given Chlorhexidine Gluconate (Peridex) 15 ml PO BID [facility] Last Admin: 05/05/17 17:14 Dose: 15 ml Hydralazine HCl (Apresoline) 10 mg IVP Q6 PRN PRN Reason: SBP> 160 Last Admin: 05/04/17 17:42 Dose: 10 mg Meropenem 1g/NS 100mL IVPB (Meropenem 1g/Ns 100ml Ivpb) 1 gm in 100 mls @ 100 mls/hr IVPB Q12 [facility] PRN Reason: Protocol Stop: 05/13/17 10:16 Last Admin: 05/06/17 22:07 Dose: 100 mls/hr Amiodarone HCl/Dextrose (Nexterone 360 Mg In D5w 200 Ml (Premix)) 360 mg in 200 mls @ 33.333 mls/hr IV .Q6H [facility]; 1 MG/MIN PRN Reason: Protocol Last Admin: 05/06/17 16:30 Dose: Not Given Fentanyl Citrate (Fentanyl Citrate/Sodium Chloride 1 Mg/100 Ml) 1,000 mcg in 100 mls @ 5 mls/hr IV .Q20H PRN; Protocol; 50 MCG/HR PRN Reason: TITRATE PER MD ORDER NOREPINEPHRINE BIT/0.9 % NACL (Levophed 4 Mg/ 250 Ml Ns Premixed) 4 mg in 250 mls @ 15 mls/hr IV .[id number] PRN; Protocol; 4 MCG/MIN PRN Reason: TITRATE PER MD ORDER Last Titration: 05/07/17 07:42 Dose: 1 mcg/min, 3.75 mls/hr Sodium Chloride (Sodium Chloride 0.9%) 1,000 mls @ 100 mls/hr IV .Q10H [facility] Last Admin: 05/07/17 12:13 Dose: Not Given Sodium Bicarbonate 100 meq/ (Sodium Chloride) 1,100 mls @ 150 mls/hr IV .Q7H20M [facility] Last Admin: 05/07/17 09:43 Dose: 150 mls/hr diltiaZEM IVPB 100mg in NS (Cardizem 100mg In Ns) 100 mls @ 5 mls/hr IV .Q20H PRN; Protocol; 5 MG/HR PRN Reason: TITRATE PER MD ORDER Last Admin: 05/07/17 08:11 Dose: 5 mg/hr, 5 mls/hr Dexmedetomidine HCl (Precedex 4 Mcg/Ml (100 Ml)) 400 mcg in 100 mls @ 4.264 mls /hr IV .[id number] PRN; Protocol; 0.2 MCG/KG/HR PRN Reason: Sedation Last Admin: 05/07/17 12:00 Dose: 0.2 mcg/kg/hr, 4.264 mls/hr Metoprolol Tartrate (Lopressor) 5 mg IVP Q6H [facility] Last Admin: 05/06/17 17:34 Dose: Not Given Midazolam HCl (Versed Inj) 4 mg IVP Q4H PRN PRN Reason: Agitation Last Admin: 05/06/17 04:40 Dose: 4 mg Morphine Sulfate (Morphine) 2 mg IVP Q3H PRN PRN Reason: Pain, severe (8-10) Nitroglycerin (Nitro-Bid 2% Oint) 1 ea TOP 0000,0600,1200,1800 [facility] Last Admin: 05/07/17 06:55 Dose: Not Given Pantoprazole Sodium (Protonix Inj) 40 mg IVP Q12 [facility] Last Admin: 05/07/17 09:43 Dose: 40 mg Verapamil HCl (Verapamil Inj) 2.5 mg IVP Q6H PRN PRN Reason: for HEAT rate >130 - Labs Labs: 05/07/17 11:00 05/07/17 11:00 PT 20.9 SECONDS (9.4-12.5) H 05/07/17 11:00 INR 1.88 (0.93-1.08) H 05/07/17 11:00 APTT 32.9 Seconds (23.7-30.8) H 05/06/17 04:45 - Constitutional Appears: No Acute Distress - Head Exam Head Exam: NORMOCEPHALIC - Eye Exam Eye Exam: Normal appearance. absent: Scleral icterus - ENT Exam ENT Exam: Mucous Membranes Moist Additional comments: intubated - Neck Exam Neck Exam: Normal Inspection - Respiratory Exam Respiratory Exam: Decreased Breath Sounds. absent: Respiratory Distress - Cardiovascular Exam Cardiovascular Exam: +S1, +S2 - GI/Abdominal Exam GI & Abdominal Exam: Soft, Hypoactive Bowel Sounds Additional comments: surgical dressing is dry and intact, MAX drain draining serosanguineous fluid - Extremities Exam Extremities Exam: Normal Capillary Refill. absent: Pedal Edema Additional comments: (+) SCD - Neurological Exam Neurological Exam: Altered (sedated and intubated) - Skin Skin Exam: Dry, Warm Assessment and Plan - Assessment and Plan (Free Text) Assessment: Assessment: Respiratory failure, intubated, failed postop extubation GI bleed, found to have perforated gastric ulcer,s/p gastric wedge ulcer Possible acute cerebral infarct Bilateral pleural effusion/consolidation Acute renal failure Atrial fibrillation with RVR h/o chronic alcohol use Anemia, s/p blood transfusion Acute liver failure,Elevated LFT, differential to consider is shock liver, patient noted to have episodes of hypotension,lfts were normal values since admission, consider medication induced , amiodarone was stopped. Status post fall,w/ multiple rib fractures S/P Hyponatremia NSTEMI COPD H/O Colon polyps PLAN: NPO, continue IVF continue Protonix every 12 on IV antibiotics as per ID On Precedex on Levophed off anticoagulant SCD to lower extremities monitor h/h, Transfuse as necessary trend LFT as per surgery, icu team Seen and discussed with Dr. Lemus. <Matthew Lemus V - Last Filed: 05/07/17 20:23> Objective - Vital Signs/Intake and Output Vital Signs (last 24 hours): Temp Pulse Resp BP Pulse Ox 99 F 101 H 30 H 137/63 97 05/07/17 18:00 05/07/17 18:00 05/07/17 07:26 05/07/17 08:11 05/07/17 07:26 Intake and Output: 05/07/17 05/08/17 18:59 06:59 Intake Total 2080.0 Output Total 615 Balance 1465.0 - Medications Medications: Current Medications Albuterol/Ipratropium (Duoneb 3 Mg/0.5 Mg (3 Ml) Ud) 3 ml IH [id number] [facility] Last Admin: 05/07/17 13:33 Dose: 3 ml Amlodipine Besylate (Norvasc) 10 mg PO DAILY [facility] Last Admin: 05/03/17 10:25 Dose: Not Given Chlorhexidine Gluconate (Peridex) 15 ml PO BID [facility] Last Admin: 05/07/17 17:36 Dose: 15 ml Hydralazine HCl (Apresoline) 10 mg IVP Q6 PRN PRN Reason: SBP> 160 Last Admin: 05/04/17 17:42 Dose: 10 mg Meropenem 1g/NS 100mL IVPB (Meropenem 1g/Ns 100ml Ivpb) 1 gm in 100 mls @ 100 mls/hr IVPB Q12 [facility] PRN Reason: Protocol Stop: 05/13/17 10:16 Last Admin: 05/07/17 13:43 Dose: 100 mls/hr Amiodarone HCl/Dextrose (Nexterone 360 Mg In D5w 200 Ml (Premix)) 360 mg in 200 mls @ 33.333 mls/hr IV .Q6H [facility]; 1 MG/MIN PRN Reason: Protocol Last Admin: 05/06/17 16:30 Dose: Not Given Fentanyl Citrate (Fentanyl Citrate/Sodium Chloride 1 Mg/100 Ml) 1,000 mcg in 100 mls @ 5 mls/hr IV .Q20H PRN; Protocol; 50 MCG/HR PRN Reason: TITRATE PER MD ORDER NOREPINEPHRINE BIT/0.9 % NACL (Levophed 4 Mg/ 250 Ml Ns Premixed) 4 mg in 250 mls @ 15 mls/hr IV .[id number] PRN; Protocol; 4 MCG/MIN PRN Reason: TITRATE PER MD ORDER Last Titration: 05/07/17 09:00 Dose: 0 mcg/min, 0 mls/hr Sodium Chloride (Sodium Chloride 0.9%) 1,000 mls @ 100 mls/hr IV .Q10H [facility] Last Admin: 05/07/17 12:13 Dose: Not Given Sodium Bicarbonate 100 meq/ (Sodium Chloride) 1,100 mls @ 150 mls/hr IV .Q7H20M [facility] Last Admin: 05/07/17 18:33 Dose: 150 mls/hr diltiaZEM IVPB 100mg in NS (Cardizem 100mg In Ns) 100 mls @ 5 mls/hr IV .Q20H PRN; Protocol; 5 MG/HR PRN Reason: TITRATE PER MD ORDER Last Titration: 05/07/17 09:00 Dose: 0 mg/hr, 0 mls/hr Dexmedetomidine HCl (Precedex 4 Mcg/Ml (100 Ml)) 400 mcg in 100 mls @ 4.264 mls /hr IV .S25A01M PRN; Protocol; 0.2 MCG/KG/HR PRN Reason: Sedation Last Admin: 05/07/17 12:00 Dose: 0.2 mcg/kg/hr, 4.264 mls/hr Metoprolol Tartrate (Lopressor) 5 mg IVP Q6H [facility] Last Admin: 05/06/17 17:34 Dose: Not Given Midazolam HCl (Versed Inj) 4 mg IVP Q4H PRN PRN Reason: Agitation Last Admin: 05/06/17 04:40 Dose: 4 mg Morphine Sulfate (Morphine) 2 mg IVP Q3H PRN PRN Reason: Pain, severe (8-10) Nitroglycerin (Nitro-Bid 2% Oint) 1 ea TOP 0000,0600,1200,1800 [facility] Last Admin: 05/07/17 17:36 Dose: Not Given Pantoprazole Sodium (Protonix Inj) 40 mg IVP Q12 [facility] Last Admin: 05/07/17 09:43 Dose: 40 mg Verapamil HCl (Verapamil Inj) 2.5 mg IVP Q6H PRN PRN Reason: for HEAT rate >130 - Labs Labs: 05/07/17 18:08 05/07/17 18:08 PT 20.9 SECONDS (9.4-12.5) H 05/07/17 18:08 INR 1.89 (0.93-1.08) H 05/07/17 18:08 APTT 32.9 Seconds (23.7-30.8) H 05/06/17 04:45 Attending/Attestation - Attestation I have personally seen and examined this patient.: Yes I have fully participated in the care of the patient.: Yes I have reviewed all pertinent clinical information, including history, physical exam and plan: Yes Notes (Text): This is an addendum to GI progress report dictated by Ana Freeman APN.The patient was seen and examined earlier. Medical records, lab studies, imagings were reviewed. Last 24 hours events reviewed. Agreed with the above treatment plan as outlined in Ana Freeman APN's notes the with the addition of the following Patient on vent Abdomen soft bowel sounds present Significant elevation of the liver enzymes with very high LDH probably suggest shock liver INR elevated Close follow-up of LFTs and INR Melena before followup hemoglobin. History of A. fib patient presently self anticoagulated discussed with electronics technician apprentice at length 05/07/17 20:20
--- NOTE | 2017-05-07 13:13 | CP.CCUPN ---
<Juventino Allen - Last Filed: 05/07/17 12:51> CCU Subjective - Physician Review Subjective (Free Text): 05/06/17 14:04 Patient s/e this AM in ICU while on sedation and intubated. Past 24 hours patient noted to have elevated HR this AM, EKG done showing afib with RVR, Cardizem given without resolve. Patient then placed on amio gtt. Patient placed on pressure support and rate control achieved. Patient remains afebrile and normotensive. CCU Objective - Vital Signs / Intake & Output Intake and Output (Last 8hrs): Intake & Output 05/06/17 05/07/17 05/07/17 22:59 06:59 14:59 Intake Total 3100 2450 66.5 Output Total 290 560 Balance 2810 1890 66.5 Intake: IV 3100 1000 66.5 Left Hand 1000 Right Antecubital 100 Right Hand 3000 Blood Product 1300 Red Blood Cells Cpd As1 325 Lr Unit [id number] Red Blood Cells Cpd As1 325 Lr Unit [id number] Other 150 Red Blood Cells Cpd As1 50 Lr Unit [id number] Red Blood Cells Cpd As1 100 Lr Unit [id number] Output: Gastric Amount 100 Nares 100 Drainage 215 10 Right Abdomen 15 Right Nare 200 10 Urine 75 50 Urethral ([place]) 75 50 Stool 400 Other: # Bowel Movements Urethral ([place]) 2 - Physical Exam Head: Positive for: Atraumatic, Normocephalic Pupils: Positive for: PERRL. Negative for: Non-Reactive, Pinpoint Extroacular Muscles: Positive for: EOMI. Negative for: Gaze Palsy Conjunctiva: Positive for: Normal. Negative for: Injected, Icteric Mouth: Positive for: Moist Mucous Membranes, Normal Lips, Normal Tounge Nose (External): Positive for: Atraumatic. Negative for: Abrasion, Contusion, Laceration Neck: Positive for: Normal Range of Motion. Negative for: MIDLINE TENDERNESS, JVD, Lymphadenopathy, Trachea Midline Respiratory/Chest: Positive for: Clear to Auscultation, Good Air Exchange. Negative for: Respiratory Distress, Accessory Muscle Use, Wheezes, Decreased Breath Sounds, Rales, Rhonchi, Tachypneic, Tender to Palpation Cardiovascular: Positive for: Regular Rate and Rhythm, Normal S1, S2. Negative for: Murmurs, Irregular Rhythm, Tachycardic, Bradycardic Abdomen: Positive for: Tenderness, Other (surgical dressing midline c/d/i, gastric tube ). Negative for: Distention, Peritoneal Signs Rectal: Positive for: Melena, Other (rectal tube in place with bag collection of dark liquid melanotic stool) Genitourinary Male: Positive for: Normal External Genitalia, Other ([place] catheter in place ) Back: Positive for: Normal Inspection Upper Extremity: Positive for: Normal Inspection, Normal ROM, NORMAL PULSES, Capillary Refill < 2s. Negative for: Cyanosis, Edema, Swelling, Erythema, Deformity Lower Extremity: Positive for: Normal Inspection, NORMAL PULSES, Normal ROM. Negative for: Edema, CALF TENDERNESS, Cyanosis, Tenderness, Swelling, Erythema, Deformity, Capillary Refill < 2 s Neurological: Positive for: Other (intubated, off sedation, opens eyes to verbal stimuli, unable to follow commands at this time, corneal reflex present, pupils sluggish and slightly reactive ) Skin: Positive for: Warm, Dry, Normal Color. Negative for: Rashes Psychiatric: Positive for: Normal Affect, Normal Mood. Negative for: Anxious, Agitated - Medications Active Medications: Active Medications Generic Name Dose Route Start Last Admin Trade Name Freq PRN Reason Stop Dose Admin Albuterol/Ipratropium 3 ml 05/06/17 14:00 05/07/17 07:16 Duoneb 3 Mg/0.5 Mg (3 Ml) Ud IH 3 ml [id number] SILVIA Administration Amlodipine Besylate 10 mg 05/01/17 12:45 05/03/17 10:25 Norvasc PO Not Given DAILY SILVIA Chlorhexidine Gluconate 15 ml 05/05/17 11:00 05/05/17 17:14 Peridex PO 15 ml BID SILVIA Administration Hydralazine HCl 10 mg 05/01/17 02:36 05/04/17 17:42 Apresoline IVP 10 mg Q6 PRN Administration SBP> 160 Meropenem 1g/NS 100mL IVPB 1 gm in 100 mls @ 100 mls/hr 05/05/17 10:15 22:07 Meropenem 1g/Ns 100ml Ivpb IVPB 05/13/17 10:16 100 mls/hr Q12 SILVIA Administration Protocol Amiodarone HCl/Dextrose 360 mg in 200 mls @ 33.333 mls/hr 05/06/17 10:30 16:30 Nexterone 360 Mg In D5w 200 Ml (Premix) IV Not Given .Q6H SILVIA Protocol 1 MG/MIN Fentanyl Citrate 1,000 mcg in 100 mls @ 5 mls/hr 05/06/17 19:44 Fentanyl Citrate/Sodium Chloride 1 Mg/100 Ml IV .Q20H PRN TITRATE PER MD ORDER Protocol 50 MCG/HR NOREPINEPHRINE BIT/0.9 % NACL 4 mg in 250 mls @ 15 mls/hr 05/07/17 01:04 07:42 Levophed 4 Mg/ 250 Ml Ns Premixed IV 1 mcg/min .[id number] PRN 3.75 mls/hr TITRATE PER MD ORDER Titration Protocol 4 MCG/MIN Sodium Chloride 1,000 mls @ 100 mls/hr 05/07/17 06:00 05/07/17 12:13 Sodium Chloride 0.9% IV Not Given .Q10H SILVIA Sodium Bicarbonate 100 meq/ 1,100 mls @ 150 mls/hr 05/07/17 07:45 05/07/17 09 :43 Sodium Chloride IV 150 mls/hr .[id number] SILVIA Administration diltiaZEM IVPB 100mg in NS 100 mls @ 5 mls/hr 05/07/17 07:57 05/07/17 08:11 Cardizem 100mg In Ns IV 5 mg/hr .Q20H PRN 5 mls/hr TITRATE PER MD ORDER Administration Protocol 5 MG/HR Dexmedetomidine HCl 400 mcg in 100 mls @ 4.264 mls/hr 05/07/17 11:22 12:00 Precedex 4 Mcg/Ml (100 Ml) IV 0.2 mcg/kg/hr .[id number] PRN 4.264 mls/hr Sedation Administration Protocol 0.2 MCG/KG/HR Metoprolol Tartrate 5 mg 05/06/17 10:00 05/06/17 17:34 Lopressor IVP Not Given Q6H SILVIA Midazolam HCl 4 mg 05/04/17 18:44 05/06/17 04:40 Versed Inj IVP 4 mg Q4H PRN Administration Agitation Morphine Sulfate 2 mg 05/06/17 12:35 Morphine IVP Q3H PRN Pain, severe (8-10) Nitroglycerin 1 ea 05/02/17 00:00 05/07/17 06:55 Nitro-Bid 2% Oint TOP Not Given 0000,0600,1200,1800 SILVIA Pantoprazole Sodium 40 mg 05/06/17 10:00 05/07/17 09:43 Protonix Inj IVP 40 mg Q12 SILVIA Administration Verapamil HCl 2.5 mg 05/06/17 14:00 Verapamil Inj IVP Q6H PRN for HEAT rate >130 - Patient Studies Lab Studies: Microbiology Studies 05/06/17 10:50 Blood Culture - Preliminary Blood-Venous NO GROWTH AFTER 24 HOURS 05/04/17 19:30 Blood Culture - Preliminary Blood NO GROWTH AFTER 48 HOURS 05/04/17 19:00 Blood Culture - Preliminary Blood NO GROWTH AFTER 48 HOURS Lab Studies 05/07/17 05/07/17 05/07/17 Range/Units 11:00 11:00 11:00 WBC 21.2 H (4.5-11.0) 10^3/ul RBC 3.30 L (3.5-6.1) 10^6/uL Hgb 10.9 L (14.0-18.0) g/dL Hct 30.9 L (42.0-52.0) % MCV 93.6 (80.0-105.0) fl MCH 33.0 (25.0-35.0) pg MCHC 35.3 (31.0-37.0) g/dl RDW 16.3 H (11.5-14.5) % Plt Count 189 (120.0-450.0) 10^3/uL MPV 9.2 (7.0-11.0) fl Gran % 86.9 H (50.0-68.0) % Lymph % (Auto) 8.0 L (22.0-35.0) % [place] % (Auto) 4.8 (1.0-6.0) % Eos % (Auto) 0.2 L (1.5-5.0) % Baso % (Auto) 0.1 (0.0-3.0) % Gran # 18.46 H (1.4-6.5) Lymph # 1.7 (1.2-3.4) [place] # 1.0 H (0.1-0.6) Eos # 0.0 (0.0-0.7) Baso # 0.03 (0.0-2.0) K/mm3 Neutrophils % (Manual) (50.0-70.0) % Band Neutrophils % (0-2) % Lymphocytes % (Manual) Monocytes % (Manual) (1.0-6.0) % Platelet Evaluation (NORMAL) PT 20.9 H (9.4-12.5) SECONDS INR 1.88 H (0.93-1.08) pCO2 (35-45) mm/Hg pO2 (80-100) mm/Hg HCO3 (21-28) mmol/L ABG pH (7.35-7.45) ABG Total CO2 (22-28) mmol.L ABG O2 Saturation (95-98) % ABG Base Excess (-2.0-3.0) mmol/L ABG Potassium (3.6-5.2) mmol/L Glucose (75-110) mg/dl Lactate (0.7-2.1) mmol/L Mechanical Rate FiO2 % Tidal Volume PEEP Sodium 147 (132-148) mmol/L Potassium 3.9 (3.6-5.0) mmol/L Chloride 118 H (98-107) mmol/L Carbon Dioxide 17 L (21-33) mmol/L Anion Gap 16 (10-20) BUN 82 H (7-21) mg/dL Creatinine 2.9 H (0.8-1.5) mg/dL Est GFR ( Amer) 26 Est GFR (Non-Af Amer) 21 Random Glucose 107 (70-110) mg/dL Lactic Acid (0.7-2.1) mmol/L Calcium 7.4 L (8.4-10.5) mg/dL Total Bilirubin 1.2 (0.2-1.3) mg/dL AST 71875 H (17-59) U/L ALT 5745 H (7-56) U/L Alkaline Phosphatase 102 (38-126) U/L Ammonia (9-33) umol/L Lactate Dehydrogenase (333-699) U/L Total Creatine Kinase (35-230) U/L CK-MB (CK-2) (0.0-3.6) ng/mL CK-MB (CK-2) % (2.5-3.0) % Troponin I ng/mL Total Protein 4.6 L (5.8-8.3) g/dL Albumin 2.1 L (3.0-4.8) g/dL Globulin 2.5 gm/dL Albumin/Globulin Ratio 0.8 L (1.1-1.8) Arterial Blood Potassium (3.6-5.2) mmol/L Hepatitis A IgM Ab (NEGATIVE) Hep Bs Antigen (NEGATIVE) Hep B Core IgM Ab (NEGATIVE) Hepatitis C Antibody (NEGATIVE) Blood Type Antibody Screen Crossmatch BBK History Checked 05/07/17 05/07/17 05/07/17 Range/Units 08:06 06:30 06:30 WBC (4.5-11.0) 10^3/ul RBC (3.5-6.1) 10^6/uL Hgb (14.0-18.0) g/dL Hct (42.0-52.0) % MCV (80.0-105.0) fl MCH (25.0-35.0) pg MCHC (31.0-37.0) g/dl RDW (11.5-14.5) % Plt Count (120.0-450.0) 10^3/uL MPV (7.0-11.0) fl Gran % (50.0-68.0) % Lymph % (Auto) (22.0-35.0) % [place] % (Auto) (1.0-6.0) % Eos % (Auto) (1.5-5.0) % Baso % (Auto) (0.0-3.0) % Gran # (1.4-6.5) Lymph # (1.2-3.4) [place] # (0.1-0.6) Eos # (0.0-0.7) Baso # (0.0-2.0) K/mm3 Neutrophils % (Manual) (50.0-70.0) % Band Neutrophils % (0-2) % Lymphocytes % (Manual) Monocytes % (Manual) (1.0-6.0) % Platelet Evaluation (NORMAL) PT 23.6 H (9.4-12.5) SECONDS INR 2.11 H (0.93-1.08) pCO2 26 L (35-45) mm/Hg pO2 86.0 (80-100) mm/Hg HCO3 14.7 L (21-28) mmol/L ABG pH 7.36 (7.35-7.45) ABG Total CO2 15.5 L (22-28) mmol.L ABG O2 Saturation 99.0 H (95-98) % ABG Base Excess -9.1 L (-2.0-3.0) mmol/L ABG Potassium 3.8 (3.6-5.2) mmol/L Glucose 118 H (75-110) mg/dl Lactate 1.7 (0.7-2.1) mmol/L Mechanical Rate 20 FiO2 35.0 % Tidal Volume 400 PEEP 5 Sodium 141.0 146 (132-148) mmol/L Potassium 4.0 (3.6-5.0) mmol/L Chloride 118.0 H 118 H (98-107) mmol/L Carbon Dioxide 16 L (21-33) mmol/L Anion Gap 16 (10-20) BUN 79 H (7-21) mg/dL Creatinine 2.8 H (0.8-1.5) mg/dL Est GFR ( Amer) 27 Est GFR (Non-Af Amer) 22 Random Glucose 116 H (70-110) mg/dL Lactic Acid (0.7-2.1) mmol/L Calcium 7.4 L (8.4-10.5) mg/dL Total Bilirubin 1.3 (0.2-1.3) mg/dL AST 39663 H (17-59) U/L ALT 5970 H (7-56) U/L Alkaline Phosphatase 84 (38-126) U/L Ammonia (9-33) umol/L Lactate Dehydrogenase (333-699) U/L Total Creatine Kinase (35-230) U/L CK-MB (CK-2) (0.0-3.6) ng/mL CK-MB (CK-2) % (2.5-3.0) % Troponin I ng/mL Total Protein 4.6 L (5.8-8.3) g/dL Albumin 2.1 L (3.0-4.8) g/dL Globulin 2.4 gm/dL Albumin/Globulin Ratio 0.9 L (1.1-1.8) Arterial Blood Potassium 3.8 (3.6-5.2) mmol/L Hepatitis A IgM Ab (NEGATIVE) Hep Bs Antigen (NEGATIVE) Hep B Core IgM Ab (NEGATIVE) Hepatitis C Antibody (NEGATIVE) Blood Type Antibody Screen Crossmatch BBK History Checked 05/07/17 05/07/17 05/07/17 Range/Units 06:30 06:30 01:17 WBC 22.6 H (4.5-11.0) 10^3/ul RBC 3.22 L (3.5-6.1) 10^6/uL Hgb 10.3 L D (14.0-18.0) g/dL Hct 30.3 L (42.0-52.0) % MCV 94.1 D (80.0-105.0) fl MCH 32.0 (25.0-35.0) pg MCHC 34.0 (31.0-37.0) g/dl RDW 16.2 H (11.5-14.5) % Plt Count 188 (120.0-450.0) 10^3/uL MPV 9.2 (7.0-11.0) fl Gran % 87.4 H (50.0-68.0) % Lymph % (Auto) 6.6 L (22.0-35.0) % [place] % (Auto) 5.9 (1.0-6.0) % Eos % (Auto) 0.0 L (1.5-5.0) % Baso % (Auto) 0.1 (0.0-3.0) % Gran # 19.74 H (1.4-6.5) Lymph # 1.5 (1.2-3.4) [place] # 1.3 H (0.1-0.6) Eos # 0.0 (0.0-0.7) Baso # 0.02 (0.0-2.0) K/mm3 Neutrophils % (Manual) (50.0-70.0) % Band Neutrophils % (0-2) % Lymphocytes % (Manual) Monocytes % (Manual) (1.0-6.0) % Platelet Evaluation (NORMAL) PT (9.4-12.5) SECONDS INR (0.93-1.08) pCO2 22 L (35-45) mm/Hg pO2 121.0 H (80-100) mm/Hg HCO3 10.3 L (21-28) mmol/L ABG pH 7.28 L (7.35-7.45) ABG Total CO2 11.0 L (22-28) mmol.L ABG O2 Saturation 99.6 H (95-98) % ABG Base Excess -14.4 L (-2.0-3.0) mmol/L ABG Potassium 4.5 (3.6-5.2) mmol/L Glucose 96 (75-110) mg/dl Lactate 5.0 H* (0.7-2.1) mmol/L Mechanical Rate FiO2 40.0 % Tidal Volume PEEP Sodium 141.0 (132-148) mmol/L Potassium (3.6-5.0) mmol/L Chloride 116.0 H (98-107) mmol/L Carbon Dioxide (21-33) mmol/L Anion Gap (10-20) BUN (7-21) mg/dL Creatinine (0.8-1.5) mg/dL Est GFR ( Amer) Est GFR (Non-Af Amer) Random Glucose (70-110) mg/dL Lactic Acid (0.7-2.1) mmol/L Calcium (8.4-10.5) mg/dL Total Bilirubin (0.2-1.3) mg/dL AST (17-59) U/L ALT (7-56) U/L Alkaline Phosphatase (38-126) U/L Ammonia (9-33) umol/L Lactate Dehydrogenase (333-699) U/L Total Creatine Kinase (35-230) U/L CK-MB (CK-2) (0.0-3.6) ng/mL CK-MB (CK-2) % (2.5-3.0) % Troponin I 3.25 H* ng/mL Total Protein (5.8-8.3) g/dL Albumin (3.0-4.8) g/dL Globulin gm/dL Albumin/Globulin Ratio (1.1-1.8) Arterial Blood Potassium 4.5 (3.6-5.2) mmol/L Hepatitis A IgM Ab (NEGATIVE) Hep Bs Antigen (NEGATIVE) Hep B Core IgM Ab (NEGATIVE) Hepatitis C Antibody (NEGATIVE) Blood Type Antibody Screen Crossmatch BBK History Checked 05/06/17 05/06/1717 Range/Units 22:53 22:14 21:25 WBC (4.5-11.0) 10^3/ul RBC (3.5-6.1) 10^6/uL Hgb (14.0-18.0) g/dL Hct (42.0-52.0) % MCV (80.0-105.0) fl MCH (25.0-35.0) pg MCHC (31.0-37.0) g/dl RDW (11.5-14.5) % Plt Count (120.0-450.0) 10^3/uL MPV (7.0-11.0) fl Gran % (50.0-68.0) % Lymph % (Auto) (22.0-35.0) % [place] % (Auto) (1.0-6.0) % Eos % (Auto) (1.5-5.0) % Baso % (Auto) (0.0-3.0) % Gran # (1.4-6.5) Lymph # (1.2-3.4) [place] # (0.1-0.6) Eos # (0.0-0.7) Baso # (0.0-2.0) K/mm3 Neutrophils % (Manual) (50.0-70.0) % Band Neutrophils % (0-2) % Lymphocytes % (Manual) Monocytes % (Manual) (1.0-6.0) % Platelet Evaluation (NORMAL) PT 24.2 H (9.4-12.5) SECONDS INR 2.19 H (0.93-1.08) pCO2 (35-45) mm/Hg pO2 (80-100) mm/Hg HCO3 (21-28) mmol/L ABG pH (7.35-7.45) ABG Total CO2 (22-28) mmol.L ABG O2 Saturation (95-98) % ABG Base Excess (-2.0-3.0) mmol/L ABG Potassium (3.6-5.2) mmol/L Glucose (75-110) mg/dl Lactate (0.7-2.1) mmol/L Mechanical Rate FiO2 % Tidal Volume PEEP Sodium 142 (132-148) mmol/L Potassium 4.6 (3.6-5.0) mmol/L Chloride 116 H (98-107) mmol/L Carbon Dioxide 13 L (21-33) mmol/L Anion Gap 18 (10-20) BUN 72 H (7-21) mg/dL Creatinine 2.5 H (0.8-1.5) mg/dL Est GFR ( Amer) 31 Est GFR (Non-Af Amer) 25 Random Glucose 99 (70-110) mg/dL Lactic Acid (0.7-2.1) mmol/L Calcium 7.4 L (8.4-10.5) mg/dL Total Bilirubin 1.2 (0.2-1.3) mg/dL AST 8792 H (17-59) U/L ALT 4263 H (7-56) U/L Alkaline Phosphatase 58 (38-126) U/L Ammonia (9-33) umol/L Lactate Dehydrogenase (333-699) U/L Total Creatine Kinase (35-230) U/L CK-MB (CK-2) (0.0-3.6) ng/mL CK-MB (CK-2) % (2.5-3.0) % Troponin I ng/mL Total Protein 4.4 L (5.8-8.3) g/dL Albumin 2.0 L (3.0-4.8) g/dL Globulin 2.3 gm/dL Albumin/Globulin Ratio 0.9 L (1.1-1.8) Arterial Blood Potassium (3.6-5.2) mmol/L Hepatitis A IgM Ab (NEGATIVE) Hep Bs Antigen (NEGATIVE) Hep B Core IgM Ab (NEGATIVE) Hepatitis C Antibody (NEGATIVE) Blood Type A POSITIVE Antibody Screen Negative Crossmatch See Detail BBK History Checked Patient has bt 05/06/17 05/06/17 05/06/17 Range/Units 21:25 20:08 20:08 WBC 21.8 H (4.5-11.0) 10^3/ul RBC 2.41 L (3.5-6.1) 10^6/uL Hgb 8.1 L (14.0-18.0) g/dL Hct 23.6 L (42.0-52.0) % MCV 97.9 (80.0-105.0) fl MCH 33.6 (25.0-35.0) pg MCHC 34.3 (31.0-37.0) g/dl RDW 16.1 H (11.5-14.5) % Plt Count 206 (120.0-450.0) 10^3/uL MPV 8.9 (7.0-11.0) fl Gran % 89.5 H (50.0-68.0) % Lymph % (Auto) 5.3 L (22.0-35.0) % [place] % (Auto) 5.1 (1.0-6.0) % Eos % (Auto) 0.0 L (1.5-5.0) % Baso % (Auto) 0.1 (0.0-3.0) % Gran # 19.55 H (1.4-6.5) Lymph # 1.2 (1.2-3.4) [place] # 1.1 H (0.1-0.6) Eos # 0.0 (0.0-0.7) Baso # 0.02 (0.0-2.0) K/mm3 Neutrophils % (Manual) (50.0-70.0) % Band Neutrophils % (0-2) % Lymphocytes % (Manual) Monocytes % (Manual) (1.0-6.0) % Platelet Evaluation (NORMAL) PT (9.4-12.5) SECONDS INR (0.93-1.08) pCO2 (35-45) mm/Hg pO2 (80-100) mm/Hg HCO3 (21-28) mmol/L ABG pH (7.35-7.45) ABG Total CO2 (22-28) mmol.L ABG O2 Saturation (95-98) % ABG Base Excess (-2.0-3.0) mmol/L ABG Potassium (3.6-5.2) mmol/L Glucose (75-110) mg/dl Lactate (0.7-2.1) mmol/L Mechanical Rate FiO2 % Tidal Volume PEEP Sodium (132-148) mmol/L Potassium (3.6-5.0) mmol/L Chloride (98-107) mmol/L Carbon Dioxide (21-33) mmol/L Anion Gap (10-20) BUN (7-21) mg/dL Creatinine (0.8-1.5) mg/dL Est GFR ( Amer) Est GFR (Non-Af Amer) Random Glucose (70-110) mg/dL Lactic Acid 4.7 H* (0.7-2.1) mmol/L Calcium (8.4-10.5) mg/dL Total Bilirubin (0.2-1.3) mg/dL AST (17-59) U/L ALT (7-56) U/L Alkaline Phosphatase (38-126) U/L Ammonia (9-33) umol/L Lactate Dehydrogenase 87947 H (333-699) U/L Total Creatine Kinase (35-230) U/L CK-MB (CK-2) (0.0-3.6) ng/mL CK-MB (CK-2) % (2.5-3.0) % Troponin I 3.30 H* ng/mL Total Protein (5.8-8.3) g/dL Albumin (3.0-4.8) g/dL Globulin gm/dL Albumin/Globulin Ratio (1.1-1.8) Arterial Blood Potassium (3.6-5.2) mmol/L Hepatitis A IgM Ab (NEGATIVE) Hep Bs Antigen (NEGATIVE) Hep B Core IgM Ab (NEGATIVE) Hepatitis C Antibody (NEGATIVE) Blood Type Antibody Screen Crossmatch BBK History Checked 05/06/17 05/06/17 05/06/17 Range/Units 16:51 16:51 16:51 WBC 20.2 H (4.5-11.0) 10^3/ul RBC 2.59 L (3.5-6.1) 10^6/uL Hgb 8.7 L (14.0-18.0) g/dL Hct 25.3 L (42.0-52.0) % MCV 97.7 (80.0-105.0) fl MCH 33.6 (25.0-35.0) pg MCHC 34.4 (31.0-37.0) g/dl RDW 16.1 H (11.5-14.5) % Plt Count 223 (120.0-450.0) 10^3/uL MPV 8.9 (7.0-11.0) fl Gran % 90.1 H (50.0-68.0) % Lymph % (Auto) 3.3 L (22.0-35.0) % [place] % (Auto) 6.5 H (1.0-6.0) % Eos % (Auto) 0.1 L (1.5-5.0) % Baso % (Auto) 0.0 (0.0-3.0) % Gran # 18.16 H (1.4-6.5) Lymph # 0.7 L (1.2-3.4) [place] # 1.3 H (0.1-0.6) Eos # 0.0 (0.0-0.7) Baso # 0.01 (0.0-2.0) K/mm3 Neutrophils % (Manual) 86 H (50.0-70.0) % Band Neutrophils % 9 H (0-2) % Lymphocytes % (Manual) TEST NOT PERFORMED Monocytes % (Manual) 5 (1.0-6.0) % Platelet Evaluation Normal (NORMAL) PT (9.4-12.5) SECONDS INR (0.93-1.08) pCO2 (35-45) mm/Hg pO2 (80-100) mm/Hg HCO3 (21-28) mmol/L ABG pH (7.35-7.45) ABG Total CO2 (22-28) mmol.L ABG O2 Saturation (95-98) % ABG Base Excess (-2.0-3.0) mmol/L ABG Potassium (3.6-5.2) mmol/L Glucose (75-110) mg/dl Lactate (0.7-2.1) mmol/L Mechanical Rate FiO2 % Tidal Volume PEEP Sodium (132-148) mmol/L Potassium (3.6-5.0) mmol/L Chloride (98-107) mmol/L Carbon Dioxide (21-33) mmol/L Anion Gap (10-20) BUN (7-21) mg/dL Creatinine (0.8-1.5) mg/dL Est GFR ( Amer) Est GFR (Non-Af Amer) Random Glucose (70-110) mg/dL Lactic Acid (0.7-2.1) mmol/L Calcium (8.4-10.5) mg/dL Total Bilirubin (0.2-1.3) mg/dL AST (17-59) U/L ALT (7-56) U/L Alkaline Phosphatase (38-126) U/L Ammonia (9-33) umol/L Lactate Dehydrogenase (333-699) U/L Total Creatine Kinase 352 H (35-230) U/L CK-MB (CK-2) 8.6 H (0.0-3.6) ng/mL CK-MB (CK-2) % 2.4 L (2.5-3.0) % Troponin I 2.83 H* D ng/mL Total Protein (5.8-8.3) g/dL Albumin (3.0-4.8) g/dL Globulin gm/dL Albumin/Globulin Ratio (1.1-1.8) Arterial Blood Potassium (3.6-5.2) mmol/L Hepatitis A IgM Ab Negative (NEGATIVE) Hep Bs Antigen Negative (NEGATIVE) Hep B Core IgM Ab Negative (NEGATIVE) Hepatitis C Antibody Negative (NEGATIVE) Blood Type Antibody Screen Crossmatch BBK History Checked 05/06/17 05/06/17 05/06/17 Range/Units 15:30 15:30 15:30 WBC (4.5-11.0) 10^3/ul RBC (3.5-6.1) 10^6/uL Hgb (14.0-18.0) g/dL Hct (42.0-52.0) % MCV (80.0-105.0) fl MCH (25.0-35.0) pg MCHC (31.0-37.0) g/dl RDW (11.5-14.5) % Plt Count (120.0-450.0) 10^3/uL MPV (7.0-11.0) fl Gran % (50.0-68.0) % Lymph % (Auto) (22.0-35.0) % [place] % (Auto) (1.0-6.0) % Eos % (Auto) (1.5-5.0) % Baso % (Auto) (0.0-3.0) % Gran # (1.4-6.5) Lymph # (1.2-3.4) [place] # (0.1-0.6) Eos # (0.0-0.7) Baso # (0.0-2.0) K/mm3 Neutrophils % (Manual) (50.0-70.0) % Band Neutrophils % (0-2) % Lymphocytes % (Manual) Monocytes % (Manual) (1.0-6.0) % Platelet Evaluation (NORMAL) PT (9.4-12.5) SECONDS INR (0.93-1.08) pCO2 (35-45) mm/Hg pO2 (80-100) mm/Hg HCO3 (21-28) mmol/L ABG pH (7.35-7.45) ABG Total CO2 (22-28) mmol.L ABG O2 Saturation (95-98) % ABG Base Excess (-2.0-3.0) mmol/L ABG Potassium (3.6-5.2) mmol/L Glucose (75-110) mg/dl Lactate (0.7-2.1) mmol/L Mechanical Rate FiO2 % Tidal Volume PEEP Sodium 142 (132-148) mmol/L Potassium 4.6 (3.6-5.0) mmol/L Chloride 114 H (98-107) mmol/L Carbon Dioxide 16 L (21-33) mmol/L Anion Gap 17 (10-20) BUN 71 H (7-21) mg/dL Creatinine 2.3 H (0.8-1.5) mg/dL Est GFR ( Amer) 34 Est GFR (Non-Af Amer) 28 Random Glucose 104 (70-110) mg/dL Lactic Acid 3.4 H (0.7-2.1) mmol/L Calcium 7.9 L (8.4-10.5) mg/dL Total Bilirubin 1.1 (0.2-1.3) mg/dL AST 4439 H (17-59) U/L ALT 2762 H (7-56) U/L Alkaline Phosphatase 57 (38-126) U/L Ammonia 22 (9-33) umol/L Lactate Dehydrogenase (333-699) U/L Total Creatine Kinase (35-230) U/L CK-MB (CK-2) (0.0-3.6) ng/mL CK-MB (CK-2) % (2.5-3.0) % Troponin I ng/mL Total Protein 4.6 L (5.8-8.3) g/dL Albumin 2.2 L (3.0-4.8) g/dL Globulin 2.4 gm/dL Albumin/Globulin Ratio 0.9 L (1.1-1.8) Arterial Blood Potassium (3.6-5.2) mmol/L Hepatitis A IgM Ab (NEGATIVE) Hep Bs Antigen (NEGATIVE) Hep B Core IgM Ab (NEGATIVE) Hepatitis C Antibody (NEGATIVE) Blood Type Antibody Screen Crossmatch BBK History Checked Laboratory Results - last 24 hr 05/06/17 05/06/17 05/06/17 15:30 15:30 15:30 WBC RBC Hgb Hct MCV MCH MCHC RDW Plt Count MPV Gran % Lymph % (Auto) [place] % (Auto) Eos % (Auto) Baso % (Auto) Gran # Lymph # [place] # Eos # Baso # Neutrophils % (Manual) Band Neutrophils % Lymphocytes % (Manual) Monocytes % (Manual) Platelet Evaluation PT INR pCO2 pO2 HCO3 ABG pH ABG Total CO2 ABG O2 Saturation ABG Base Excess ABG Potassium Glucose Lactate Mechanical Rate FiO2 Tidal Volume PEEP Sodium 142 Potassium 4.6 Chloride 114 H Carbon Dioxide 16 L Anion Gap 17 BUN 71 H Creatinine 2.3 H Est GFR ( Amer) 34 Est GFR (Non-Af Amer) 28 Random Glucose 104 Lactic Acid 3.4 H Calcium 7.9 L Total Bilirubin 1.1 AST 4439 H ALT 2762 H Alkaline Phosphatase 57 Ammonia 22 Lactate Dehydrogenase Total Creatine Kinase CK-MB (CK-2) CK-MB (CK-2) % Troponin I Total Protein 4.6 L Albumin 2.2 L Globulin 2.4 Albumin/Globulin Ratio 0.9 L Arterial Blood Potassium Hepatitis A IgM Ab Hep Bs Antigen Hep B Core IgM Ab Hepatitis C Antibody Blood Type Antibody Screen Crossmatch BBK History Checked 05/06/17 05/06/17 05/06/17 16:51 16:51 16:51 WBC 20.2 H RBC 2.59 L Hgb 8.7 L Hct 25.3 L MCV 97.7 MCH 33.6 MCHC 34.4 RDW 16.1 H Plt Count 223 MPV 8.9 Gran % 90.1 H Lymph % (Auto) 3.3 L [place] % (Auto) 6.5 H Eos % (Auto) 0.1 L Baso % (Auto) 0.0 Gran # 18.16 H Lymph # 0.7 L [place] # 1.3 H Eos # 0.0 Baso # 0.01 Neutrophils % (Manual) 86 H Band Neutrophils % 9 H Lymphocytes % (Manual) TEST NOT PERFORMED Monocytes % (Manual) 5 Platelet Evaluation Normal PT INR pCO2 pO2 HCO3 ABG pH ABG Total CO2 ABG O2 Saturation ABG Base Excess ABG Potassium Glucose Lactate Mechanical Rate FiO2 Tidal Volume PEEP Sodium Potassium Chloride Carbon Dioxide Anion Gap BUN Creatinine Est GFR ( Amer) Est GFR (Non-Af Amer) Random Glucose Lactic Acid Calcium Total Bilirubin AST ALT Alkaline Phosphatase Ammonia Lactate Dehydrogenase Total Creatine Kinase 352 H CK-MB (CK-2) 8.6 H CK-MB (CK-2) % 2.4 L Troponin I 2.83 H* D Total Protein Albumin Globulin Albumin/Globulin Ratio Arterial Blood Potassium Hepatitis A IgM Ab Negative Hep Bs Antigen Negative Hep B Core IgM Ab Negative Hepatitis C Antibody Negative Blood Type Antibody Screen Crossmatch BBK History Checked 05/06/17 05/06/17 05/06/17 20:08 20:08 21:25 WBC 21.8 H RBC 2.41 L Hgb 8.1 L Hct 23.6 L MCV 97.9 MCH 33.6 MCHC 34.3 RDW 16.1 H Plt Count 206 MPV 8.9 Gran % 89.5 H Lymph % (Auto) 5.3 L [place] % (Auto) 5.1 Eos % (Auto) 0.0 L Baso % (Auto) 0.1 Gran # 19.55 H Lymph # 1.2 [place] # 1.1 H Eos # 0.0 Baso # 0.02 Neutrophils % (Manual) Band Neutrophils % Lymphocytes % (Manual) Monocytes % (Manual) Platelet Evaluation PT INR pCO2 pO2 HCO3 ABG pH ABG Total CO2 ABG O2 Saturation ABG Base Excess ABG Potassium Glucose Lactate Mechanical Rate FiO2 Tidal Volume PEEP Sodium Potassium Chloride Carbon Dioxide Anion Gap BUN Creatinine Est GFR ( Amer) Est GFR (Non-Af Amer) Random Glucose Lactic Acid 4.7 H* Calcium Total Bilirubin AST ALT Alkaline Phosphatase Ammonia Lactate Dehydrogenase 94079 H Total Creatine Kinase CK-MB (CK-2) CK-MB (CK-2) % Troponin I 3.30 H* Total Protein Albumin Globulin Albumin/Globulin Ratio Arterial Blood Potassium Hepatitis A IgM Ab Hep Bs Antigen Hep B Core IgM Ab Hepatitis C Antibody Blood Type Antibody Screen Crossmatch BBK History Checked 05/06/17 05/06/17 05/06/17 21:25 22:14 22:53 WBC RBC Hgb Hct MCV MCH MCHC RDW Plt Count MPV Gran % Lymph % (Auto) [place] % (Auto) Eos % (Auto) Baso % (Auto) Gran # Lymph # [place] # Eos # Baso # Neutrophils % (Manual) Band Neutrophils % Lymphocytes % (Manual) Monocytes % (Manual) Platelet Evaluation PT 24.2 H INR 2.19 H pCO2 pO2 HCO3 ABG pH ABG Total CO2 ABG O2 Saturation ABG Base Excess ABG Potassium Glucose Lactate Mechanical Rate FiO2 Tidal Volume PEEP Sodium 142 Potassium 4.6 Chloride 116 H Carbon Dioxide 13 L Anion Gap 18 BUN 72 H Creatinine 2.5 H Est GFR ( Amer) 31 Est GFR (Non-Af Amer) 25 Random Glucose 99 Lactic Acid Calcium 7.4 L Total Bilirubin 1.2 AST 8792 H ALT 4263 H Alkaline Phosphatase 58 Ammonia Lactate Dehydrogenase Total Creatine Kinase CK-MB (CK-2) CK-MB (CK-2) % Troponin I Total Protein 4.4 L Albumin 2.0 L Globulin 2.3 Albumin/Globulin Ratio 0.9 L Arterial Blood Potassium Hepatitis A IgM Ab Hep Bs Antigen Hep B Core IgM Ab Hepatitis C Antibody Blood Type A POSITIVE Antibody Screen Negative Crossmatch See Detail BBK History Checked Patient has bt 05/07/17 05/07/17 05/07/17 01:17 06:30 06:30 WBC 22.6 H RBC 3.22 L Hgb 10.3 L D Hct 30.3 L MCV 94.1 D MCH 32.0 MCHC 34.0 RDW 16.2 H Plt Count 188 MPV 9.2 Gran % 87.4 H Lymph % (Auto) 6.6 L [place] % (Auto) 5.9 Eos % (Auto) 0.0 L Baso % (Auto) 0.1 Gran # 19.74 H Lymph # 1.5 [place] # 1.3 H Eos # 0.0 Baso # 0.02 Neutrophils % (Manual) Band Neutrophils % Lymphocytes % (Manual) Monocytes % (Manual) Platelet Evaluation PT INR pCO2 22 L pO2 121.0 H HCO3 10.3 L ABG pH 7.28 L ABG Total CO2 11.0 L ABG O2 Saturation 99.6 H ABG Base Excess -14.4 L ABG Potassium 4.5 Glucose 96 Lactate 5.0 H* Mechanical Rate FiO2 40.0 Tidal Volume PEEP Sodium 141.0 Potassium Chloride 116.0 H Carbon Dioxide Anion Gap BUN Creatinine Est GFR ( Amer) Est GFR (Non-Af Amer) Random Glucose Lactic Acid Calcium Total Bilirubin AST ALT Alkaline Phosphatase Ammonia Lactate Dehydrogenase Total Creatine Kinase CK-MB (CK-2) CK-MB (CK-2) % Troponin I 3.25 H* Total Protein Albumin Globulin Albumin/Globulin Ratio Arterial Blood Potassium 4.5 Hepatitis A IgM Ab Hep Bs Antigen Hep B Core IgM Ab Hepatitis C Antibody Blood Type Antibody Screen Crossmatch BBK History Checked 05/07/17 05/07/17 05/07/17 06:30 06:30 08:06 WBC RBC Hgb Hct MCV MCH MCHC RDW Plt Count MPV Gran % Lymph % (Auto) [place] % (Auto) Eos % (Auto) Baso % (Auto) Gran # Lymph # [place] # Eos # Baso # Neutrophils % (Manual) Band Neutrophils % Lymphocytes % (Manual) Monocytes % (Manual) Platelet Evaluation PT 23.6 H INR 2.11 H pCO2 26 L pO2 86.0 HCO3 14.7 L ABG pH 7.36 ABG Total CO2 15.5 L ABG O2 Saturation 99.0 H ABG Base Excess -9.1 L ABG Potassium 3.8 Glucose 118 H Lactate 1.7 Mechanical Rate 20 FiO2 35.0 Tidal Volume 400 PEEP 5 Sodium 146 141.0 Potassium 4.0 Chloride 118 H 118.0 H Carbon Dioxide 16 L Anion Gap 16 BUN 79 H Creatinine 2.8 H Est GFR ( Amer) 27 Est GFR (Non-Af Amer) 22 Random Glucose 116 H Lactic Acid Calcium 7.4 L Total Bilirubin 1.3 AST 42679 H ALT 5970 H Alkaline Phosphatase 84 Ammonia Lactate Dehydrogenase Total Creatine Kinase CK-MB (CK-2) CK-MB (CK-2) % Troponin I Total Protein 4.6 L Albumin 2.1 L Globulin 2.4 Albumin/Globulin Ratio 0.9 L Arterial Blood Potassium 3.8 Hepatitis A IgM Ab Hep Bs Antigen Hep B Core IgM Ab Hepatitis C Antibody Blood Type Antibody Screen Crossmatch BBK History Checked 05/07/17 05/07/17 05/07/17 11:00 11:00 11:00 WBC 21.2 H RBC 3.30 L Hgb 10.9 L Hct 30.9 L MCV 93.6 MCH 33.0 MCHC 35.3 RDW 16.3 H Plt Count 189 MPV 9.2 Gran % 86.9 H Lymph % (Auto) 8.0 L [place] % (Auto) 4.8 Eos % (Auto) 0.2 L Baso % (Auto) 0.1 Gran # 18.46 H Lymph # 1.7 [place] # 1.0 H Eos # 0.0 Baso # 0.03 Neutrophils % (Manual) Band Neutrophils % Lymphocytes % (Manual) Monocytes % (Manual) Platelet Evaluation PT 20.9 H INR 1.88 H pCO2 pO2 HCO3 ABG pH ABG Total CO2 ABG O2 Saturation ABG Base Excess ABG Potassium Glucose Lactate Mechanical Rate FiO2 Tidal Volume PEEP Sodium 147 Potassium 3.9 Chloride 118 H Carbon Dioxide 17 L Anion Gap 16 BUN 82 H Creatinine 2.9 H Est GFR ( Amer) 26 Est GFR (Non-Af Amer) 21 Random Glucose 107 Lactic Acid Calcium 7.4 L Total Bilirubin 1.2 AST 62837 H ALT 5745 H Alkaline Phosphatase 102 Ammonia Lactate Dehydrogenase Total Creatine Kinase CK-MB (CK-2) CK-MB (CK-2) % Troponin I Total Protein 4.6 L Albumin 2.1 L Globulin 2.5 Albumin/Globulin Ratio 0.8 L Arterial Blood Potassium Hepatitis A IgM Ab Hep Bs Antigen Hep B Core IgM Ab Hepatitis C Antibody Blood Type Antibody Screen Crossmatch BBK History Checked EKG/Cardiology Studies: Cardiology / EKG Studies 05/06/17 17:44 EKG [ELECTROCARDIOGRAM] Stat Comment: Reason For Exam: elevated trop Review of Systems - Review of Systems Review of Systems: unable to obtain secondary to patient being obtunded with minimal response Critical Care Progress Note - Nutrition Nutrition: Nutrition Category Date Time Status NPO Diet [DIET] Diets 05/04/17 Breakfast Ordered Assessment/Plan - Assessment and Plan (Free Text) Assessment: 77 year old male with PMH of COPD, HTN, hyperglycemia, recent hx of falls, and suspected upper GI bleed who was admitted to ICU with NSTEMI, hyponatremia, and hypokalemia on 05/01. Patient was stabalized and transferred to the floor. While there he had a drop in his Hgb and became tachycardic. CXR showed free air under diaphragm and CT abdomen confirmed free air. Patient went for ex lap and repair of gastric perforation in greater curvature of stomach POD#3. Patient has shown elevation in LFTs and poor renal function likely secondary to septic shock with AG metabolic acidosis in the setting of MODS. Prognosis is poor at this time. Plan: Neuro: Stroke - Yesterday Head CT showed foci of hypodensity at posterior parietal and occipital lobes bilateral larger on left suspicious for acute infarct - MRI ordered for continued evaluation Assessment prior to surgery showed AAO to person, time, not necessarily place Patient placed on precedex for worsening clinical picture - Patient showing improved response on exam this AM compared to past 24 hours - Ammonia normal - Still considering metabolic encephalopathy Continue to monitor Maintain normothermia and euvolemia Pulm: Intubated secondary to acute respiratory failure post op - will continue today secondary to poor clinical progression over past 24 hours - Morning ABG p02 86, pH 7.36 - Continue ABG Chest CT: notable for multiple fractured ribs with hx of multiple falls CT chest showing no lung mass, vertebral fracture of T8, multiple left-sided rib fractures, moderate size left pleural effusion CXR today showing bibasilar infiltrates, ID following for potential infectious source Hx of COPD Incentive spirometer CVS: Atrial Fib with RVR - Tachycardia this AM with no discernable p wave, EKG showing afib with RVR vs. Atrial flutter - Amiodarone held at this time in light of acute liver failure - Patient exhibiting ventricular arrthymias at this time, cardizem gtt placed and on hold at this time will continue to monitor for initiation of therapy - Repeat echocardiogram ordered for evaluation of atrial fibrillation and possible thrombus formation NSTEMI - Troponin elevation on admission, trending down now - ECHO (05/01) EF of 55%, mild concentric LVH, mod MR, mild TR, no pericardial effusion - Cardiology consulted(Dr. Nick) and following, [facility] will be placed on hold HTN -HTN medications prn, stable at this time cont to monitor - Holding at this time, patient noted to be hypotensive last evening and placed on pressor support, now off - Continue to monitor GI: Acute Liver Failure - AST and ALT continue to be elevated, LDH 30K, and INR elevated at 2.11, likely secondary to ischemic hepatitis in the setting of poor perfusion vs. possible thrombus obstruction - Abdominal CT yesterday showing mildly dilated large bowel loops multiple air fluid levels, without obstruction, persistent pleural effsuions nad bilateral lower lobe Perforation of gastric ulcer s/p ex lap with gastric wedge resection POD#3 - General surgery(Dr. Mccrary) consulted and following - H/H dropped overnight and patient given 2 units pRBC - GI consulted(Dr. Lemus) recs - Continue bowel rest with continuous suction of gastric contents Transaminitis - worsening - diff dx: ischemic hepatitis vs. drug induced injury - LFT continue to climb, LDH 30K, Alk phos normal, T. Bili normal, likely acute renal failure secondary to ischemic hepatitis, tox screen negative - Hepatitis panel negative - Continue IVF and monitor Protonix for GI ppx Renal: Likely Renal Failure with elevated AG metabolic acidosis - Cr continues to trend upward, continue fluids, UOP poor over past 12 hours, will monitor - Avoid nephrotoxic medications - Nephrology(Dr. Greenwood) following appreciate recs - Monitor electrolytes and replace as necessary Heme: H/H stable at this time s/p 2 units transfused - Continued dark melanotic stools in past 24 hours Plan to transfuse if Hgb below <7 - INR 2.11, continue to monitor coags DVT ppx with Heparin SC ID: Septic shock - On meropenem Day3 - UA unremarkable - Bld Clx: negative, Will repeat blood culture today - Urine clx: contamination - CXR showing bibasilar infiltrates - Procal elevated ID following (Dr. Rosario)(Dr. Mayer) Case and plan discussed with attending - Date & Time Date: 05/07/17 Time: 13:13 <Elisabet Rivera MD H - Last Filed: 05/07/17 13:22> CCU Objective - Vital Signs / Intake & Output Vital Signs (Last 4 hours): Vital Signs Pulse 05/07/17 10:00 106 H Intake and Output (Last 8hrs): Intake & Output 05/06/17 05/07/17 05/07/17 22:59 06:59 14:59 Intake Total 3100 2450 66.5 Output Total 290 560 Balance 2810 1890 66.5 Weight 240 lb Intake: IV 3100 1000 66.5 Left Hand 1000 Right Antecubital 100 Right Hand 3000 Blood Product 1300 Red Blood Cells Cpd As1 325 Lr Unit [id number] Red Blood Cells Cpd As1 325 Lr Unit [id number] Other 150 Red Blood Cells Cpd As1 50 Lr Unit [id number] Red Blood Cells Cpd As1 100 Lr Unit [id number] Output: Gastric Amount 100 Nares 100 Drainage 215 10 Right Abdomen 15 Right Nare 200 10 Urine 75 50 Urethral ([place]) 75 50 Stool 400 Other: # Bowel Movements Urethral ([place]) 2 - Medications Active Medications: Active Medications Generic Name Dose Route Start Last Admin Trade Name Freq PRN Reason Stop Dose Admin Albuterol/Ipratropium 3 ml 05/06/17 14:00 05/07/17 07:16 Duoneb 3 Mg/0.5 Mg (3 Ml) Ud IH 3 ml [id number] SILVIA Administration Amlodipine Besylate 10 mg 05/01/17 12:45 05/03/17 10:25 Norvasc PO Not Given DAILY SILVIA Chlorhexidine Gluconate 15 ml 05/05/17 11:00 05/05/17 17:14 Peridex PO 15 ml BID SILVIA Administration Hydralazine HCl 10 mg 05/01/17 02:36 05/04/17 17:42 Apresoline IVP 10 mg Q6 PRN Administration SBP> 160 Meropenem 1g/NS 100mL IVPB 1 gm in 100 mls @ 100 mls/hr 05/05/17 10:15 22:07 Meropenem 1g/Ns 100ml Ivpb IVPB 05/13/17 10:16 100 mls/hr Q12 SILVIA Administration Protocol Amiodarone HCl/Dextrose 360 mg in 200 mls @ 33.333 mls/hr 05/06/17 10:30 16:30 Nexterone 360 Mg In D5w 200 Ml (Premix) IV Not Given .Q6H SILVIA Protocol 1 MG/MIN Fentanyl Citrate 1,000 mcg in 100 mls @ 5 mls/hr 05/06/17 19:44 Fentanyl Citrate/Sodium Chloride 1 Mg/100 Ml IV .Q20H PRN TITRATE PER MD ORDER Protocol 50 MCG/HR NOREPINEPHRINE BIT/0.9 % NACL 4 mg in 250 mls @ 15 mls/hr 05/07/17 01:04 07:42 Levophed 4 Mg/ 250 Ml Ns Premixed IV 1 mcg/min .[id number] PRN 3.75 mls/hr TITRATE PER MD ORDER Titration Protocol 4 MCG/MIN Sodium Chloride 1,000 mls @ 100 mls/hr 05/07/17 06:00 05/07/17 12:13 Sodium Chloride 0.9% IV Not Given .Q10H SILVIA Sodium Bicarbonate 100 meq/ 1,100 mls @ 150 mls/hr 05/07/17 07:45 05/07/17 09 :43 Sodium Chloride IV 150 mls/hr .[id number] SILVIA Administration diltiaZEM IVPB 100mg in NS 100 mls @ 5 mls/hr 05/07/17 07:57 05/07/17 08:11 Cardizem 100mg In Ns IV 5 mg/hr .Q20H PRN 5 mls/hr TITRATE PER MD ORDER Administration Protocol 5 MG/HR Dexmedetomidine HCl 400 mcg in 100 mls @ 4.264 mls/hr 05/07/17 11:22 12:00 Precedex 4 Mcg/Ml (100 Ml) IV 0.2 mcg/kg/hr .[id number] PRN 4.264 mls/hr Sedation Administration Protocol 0.2 MCG/KG/HR Metoprolol Tartrate 5 mg 05/06/17 10:00 05/06/17 17:34 Lopressor IVP Not Given Q6H SILVIA Midazolam HCl 4 mg 05/04/17 18:44 05/06/17 04:40 Versed Inj IVP 4 mg Q4H PRN Administration Agitation Morphine Sulfate 2 mg 05/06/17 12:35 Morphine IVP Q3H PRN Pain, severe (8-10) Nitroglycerin 1 ea 05/02/17 00:00 05/07/17 06:55 Nitro-Bid 2% Oint TOP Not Given 0000,0600,1200,1800 [facility] Pantoprazole Sodium 40 mg 05/06/17 10:00 05/07/17 09:43 Protonix Inj IVP 40 mg Q12 SILVIA Administration Verapamil HCl 2.5 mg 05/06/17 14:00 Verapamil Inj IVP Q6H PRN for HEAT rate >130 - Patient Studies Lab Studies: Microbiology Studies 05/06/17 10:50 Blood Culture - Preliminary Blood-Venous NO GROWTH AFTER 24 HOURS 05/04/17 19:30 Blood Culture - Preliminary Blood NO GROWTH AFTER 48 HOURS 05/04/17 19:00 Blood Culture - Preliminary Blood NO GROWTH AFTER 48 HOURS Lab Studies 05/07/17 05/07/17 05/07/17 Range/Units 11:00 11:00 11:00 WBC 21.2 H (4.5-11.0) 10^3/ul RBC 3.30 L (3.5-6.1) 10^6/uL Hgb 10.9 L (14.0-18.0) g/dL Hct 30.9 L (42.0-52.0) % MCV 93.6 (80.0-105.0) fl MCH 33.0 (25.0-35.0) pg MCHC 35.3 (31.0-37.0) g/dl RDW 16.3 H (11.5-14.5) % Plt Count 189 (120.0-450.0) 10^3/uL MPV 9.2 (7.0-11.0) fl Gran % 86.9 H (50.0-68.0) % Lymph % (Auto) 8.0 L (22.0-35.0) % [place] % (Auto) 4.8 (1.0-6.0) % Eos % (Auto) 0.2 L (1.5-5.0) % Baso % (Auto) 0.1 (0.0-3.0) % Gran # 18.46 H (1.4-6.5) Lymph # 1.7 (1.2-3.4) [place] # 1.0 H (0.1-0.6) Eos # 0.0 (0.0-0.7) Baso # 0.03 (0.0-2.0) K/mm3 Neutrophils % (Manual) (50.0-70.0) % Band Neutrophils % (0-2) % Lymphocytes % (Manual) Monocytes % (Manual) (1.0-6.0) % Platelet Evaluation (NORMAL) PT 20.9 H (9.4-12.5) SECONDS INR 1.88 H (0.93-1.08) pCO2 (35-45) mm/Hg pO2 (80-100) mm/Hg HCO3 (21-28) mmol/L ABG pH (7.35-7.45) ABG Total CO2 (22-28) mmol.L ABG O2 Saturation (95-98) % ABG Base Excess (-2.0-3.0) mmol/L ABG Potassium (3.6-5.2) mmol/L Glucose (75-110) mg/dl Lactate (0.7-2.1) mmol/L Mechanical Rate FiO2 % Tidal Volume PEEP Sodium 147 (132-148) mmol/L Potassium 3.9 (3.6-5.0) mmol/L Chloride 118 H (98-107) mmol/L Carbon Dioxide 17 L (21-33) mmol/L Anion Gap 16 (10-20) BUN 82 H (7-21) mg/dL Creatinine 2.9 H (0.8-1.5) mg/dL Est GFR ( Amer) 26 Est GFR (Non-Af Amer) 21 Random Glucose 107 (70-110) mg/dL Lactic Acid (0.7-2.1) mmol/L Calcium 7.4 L (8.4-10.5) mg/dL Total Bilirubin 1.2 (0.2-1.3) mg/dL AST 00091 H (17-59) U/L ALT 5745 H (7-56) U/L Alkaline Phosphatase 102 (38-126) U/L Ammonia (9-33) umol/L Lactate Dehydrogenase (333-699) U/L Total Creatine Kinase (35-230) U/L CK-MB (CK-2) (0.0-3.6) ng/mL CK-MB (CK-2) % (2.5-3.0) % Troponin I ng/mL Total Protein 4.6 L (5.8-8.3) g/dL Albumin 2.1 L (3.0-4.8) g/dL Globulin 2.5 gm/dL Albumin/Globulin Ratio 0.8 L (1.1-1.8) Arterial Blood Potassium (3.6-5.2) mmol/L Hepatitis A IgM Ab (NEGATIVE) Hep Bs Antigen (NEGATIVE) Hep B Core IgM Ab (NEGATIVE) Hepatitis C Antibody (NEGATIVE) Blood Type Antibody Screen Crossmatch BBK History Checked 05/07/17 05/07/17 05/07/17 Range/Units 08:06 06:30 06:30 WBC (4.5-11.0) 10^3/ul RBC (3.5-6.1) 10^6/uL Hgb (14.0-18.0) g/dL Hct (42.0-52.0) % MCV (80.0-105.0) fl MCH (25.0-35.0) pg MCHC (31.0-37.0) g/dl RDW (11.5-14.5) % Plt Count (120.0-450.0) 10^3/uL MPV (7.0-11.0) fl Gran % (50.0-68.0) % Lymph % (Auto) (22.0-35.0) % [place] % (Auto) (1.0-6.0) % Eos % (Auto) (1.5-5.0) % Baso % (Auto) (0.0-3.0) % Gran # (1.4-6.5) Lymph # (1.2-3.4) [place] # (0.1-0.6) Eos # (0.0-0.7) Baso # (0.0-2.0) K/mm3 Neutrophils % (Manual) (50.0-70.0) % Band Neutrophils % (0-2) % Lymphocytes % (Manual) Monocytes % (Manual) (1.0-6.0) % Platelet Evaluation (NORMAL) PT 23.6 H (9.4-12.5) SECONDS INR 2.11 H (0.93-1.08) pCO2 26 L (35-45) mm/Hg pO2 86.0 (80-100) mm/Hg HCO3 14.7 L (21-28) mmol/L ABG pH 7.36 (7.35-7.45) ABG Total CO2 15.5 L (22-28) mmol.L ABG O2 Saturation 99.0 H (95-98) % ABG Base Excess -9.1 L (-2.0-3.0) mmol/L ABG Potassium 3.8 (3.6-5.2) mmol/L Glucose 118 H (75-110) mg/dl Lactate 1.7 (0.7-2.1) mmol/L Mechanical Rate 20 FiO2 35.0 % Tidal Volume 400 PEEP 5 Sodium 141.0 146 (132-148) mmol/L Potassium 4.0 (3.6-5.0) mmol/L Chloride 118.0 H 118 H (98-107) mmol/L Carbon Dioxide 16 L (21-33) mmol/L Anion Gap 16 (10-20) BUN 79 H (7-21) mg/dL Creatinine 2.8 H (0.8-1.5) mg/dL Est GFR ( Amer) 27 Est GFR (Non-Af Amer) 22 Random Glucose 116 H (70-110) mg/dL Lactic Acid (0.7-2.1) mmol/L Calcium 7.4 L (8.4-10.5) mg/dL Total Bilirubin 1.3 (0.2-1.3) mg/dL AST 00812 H (17-59) U/L ALT 5970 H (7-56) U/L Alkaline Phosphatase 84 (38-126) U/L Ammonia (9-33) umol/L Lactate Dehydrogenase (333-699) U/L Total Creatine Kinase (35-230) U/L CK-MB (CK-2) (0.0-3.6) ng/mL CK-MB (CK-2) % (2.5-3.0) % Troponin I ng/mL Total Protein 4.6 L (5.8-8.3) g/dL Albumin 2.1 L (3.0-4.8) g/dL Globulin 2.4 gm/dL Albumin/Globulin Ratio 0.9 L (1.1-1.8) Arterial Blood Potassium 3.8 (3.6-5.2) mmol/L Hepatitis A IgM Ab (NEGATIVE) Hep Bs Antigen (NEGATIVE) Hep B Core IgM Ab (NEGATIVE) Hepatitis C Antibody (NEGATIVE) Blood Type Antibody Screen Crossmatch BBK History Checked 05/07/17 05/07/17 05/07/17 Range/Units 06:30 06:30 01:17 WBC 22.6 H (4.5-11.0) 10^3/ul RBC 3.22 L (3.5-6.1) 10^6/uL Hgb 10.3 L D (14.0-18.0) g/dL Hct 30.3 L (42.0-52.0) % MCV 94.1 D (80.0-105.0) fl MCH 32.0 (25.0-35.0) pg MCHC 34.0 (31.0-37.0) g/dl RDW 16.2 H (11.5-14.5) % Plt Count 188 (120.0-450.0) 10^3/uL MPV 9.2 (7.0-11.0) fl Gran % 87.4 H (50.0-68.0) % Lymph % (Auto) 6.6 L (22.0-35.0) % [place] % (Auto) 5.9 (1.0-6.0) % Eos % (Auto) 0.0 L (1.5-5.0) % Baso % (Auto) 0.1 (0.0-3.0) % Gran # 19.74 H (1.4-6.5) Lymph # 1.5 (1.2-3.4) [place] # 1.3 H (0.1-0.6) Eos # 0.0 (0.0-0.7) Baso # 0.02 (0.0-2.0) K/mm3 Neutrophils % (Manual) (50.0-70.0) % Band Neutrophils % (0-2) % Lymphocytes % (Manual) Monocytes % (Manual) (1.0-6.0) % Platelet Evaluation (NORMAL) PT (9.4-12.5) SECONDS INR (0.93-1.08) pCO2 22 L (35-45) mm/Hg pO2 121.0 H (80-100) mm/Hg HCO3 10.3 L (21-28) mmol/L ABG pH 7.28 L (7.35-7.45) ABG Total CO2 11.0 L (22-28) mmol.L ABG O2 Saturation 99.6 H (95-98) % ABG Base Excess -14.4 L (-2.0-3.0) mmol/L ABG Potassium 4.5 (3.6-5.2) mmol/L Glucose 96 (75-110) mg/dl Lactate 5.0 H* (0.7-2.1) mmol/L Mechanical Rate FiO2 40.0 % Tidal Volume PEEP Sodium 141.0 (132-148) mmol/L Potassium (3.6-5.0) mmol/L Chloride 116.0 H (98-107) mmol/L Carbon Dioxide (21-33) mmol/L Anion Gap (10-20) BUN (7-21) mg/dL Creatinine (0.8-1.5) mg/dL Est GFR ( Amer) Est GFR (Non-Af Amer) Random Glucose (70-110) mg/dL Lactic Acid (0.7-2.1) mmol/L Calcium (8.4-10.5) mg/dL Total Bilirubin (0.2-1.3) mg/dL AST (17-59) U/L ALT (7-56) U/L Alkaline Phosphatase (38-126) U/L Ammonia (9-33) umol/L Lactate Dehydrogenase (333-699) U/L Total Creatine Kinase (35-230) U/L CK-MB (CK-2) (0.0-3.6) ng/mL CK-MB (CK-2) % (2.5-3.0) % Troponin I 3.25 H* ng/mL Total Protein (5.8-8.3) g/dL Albumin (3.0-4.8) g/dL Globulin gm/dL Albumin/Globulin Ratio (1.1-1.8) Arterial Blood Potassium 4.5 (3.6-5.2) mmol/L Hepatitis A IgM Ab (NEGATIVE) Hep Bs Antigen (NEGATIVE) Hep B Core IgM Ab (NEGATIVE) Hepatitis C Antibody (NEGATIVE) Blood Type Antibody Screen Crossmatch BBK History Checked 05/06/17 05/06/17 05/06/17 Range/Units 22:53 22:14 21:25 WBC (4.5-11.0) 10^3/ul RBC (3.5-6.1) 10^6/uL Hgb (14.0-18.0) g/dL Hct (42.0-52.0) % MCV (80.0-105.0) fl MCH (25.0-35.0) pg MCHC (31.0-37.0) g/dl RDW (11.5-14.5) % Plt Count (120.0-450.0) 10^3/uL MPV (7.0-11.0) fl Gran % (50.0-68.0) % Lymph % (Auto) (22.0-35.0) % [place] % (Auto) (1.0-6.0) % Eos % (Auto) (1.5-5.0) % Baso % (Auto) (0.0-3.0) % Gran # (1.4-6.5) Lymph # (1.2-3.4) [place] # (0.1-0.6) Eos # (0.0-0.7) Baso # (0.0-2.0) K/mm3 Neutrophils % (Manual) (50.0-70.0) % Band Neutrophils % (0-2) % Lymphocytes % (Manual) Monocytes % (Manual) (1.0-6.0) % Platelet Evaluation (NORMAL) PT 24.2 H (9.4-12.5) SECONDS INR 2.19 H (0.93-1.08) pCO2 (35-45) mm/Hg pO2 (80-100) mm/Hg HCO3 (21-28) mmol/L ABG pH (7.35-7.45) ABG Total CO2 (22-28) mmol.L ABG O2 Saturation (95-98) % ABG Base Excess (-2.0-3.0) mmol/L ABG Potassium (3.6-5.2) mmol/L Glucose (75-110) mg/dl Lactate (0.7-2.1) mmol/L Mechanical Rate FiO2 % Tidal Volume PEEP Sodium 142 (132-148) mmol/L Potassium 4.6 (3.6-5.0) mmol/L Chloride 116 H (98-107) mmol/L Carbon Dioxide 13 L (21-33) mmol/L Anion Gap 18 (10-20) BUN 72 H (7-21) mg/dL Creatinine 2.5 H (0.8-1.5) mg/dL Est GFR ( Amer) 31 Est GFR (Non-Af Amer) 25 Random Glucose 99 (70-110) mg/dL Lactic Acid (0.7-2.1) mmol/L Calcium 7.4 L (8.4-10.5) mg/dL Total Bilirubin 1.2 (0.2-1.3) mg/dL AST 8792 H (17-59) U/L ALT 4263 H (7-56) U/L Alkaline Phosphatase 58 (38-126) U/L Ammonia (9-33) umol/L Lactate Dehydrogenase (333-699) U/L Total Creatine Kinase (35-230) U/L CK-MB (CK-2) (0.0-3.6) ng/mL CK-MB (CK-2) % (2.5-3.0) % Troponin I ng/mL Total Protein 4.4 L (5.8-8.3) g/dL Albumin 2.0 L (3.0-4.8) g/dL Globulin 2.3 gm/dL Albumin/Globulin Ratio 0.9 L (1.1-1.8) Arterial Blood Potassium (3.6-5.2) mmol/L Hepatitis A IgM Ab (NEGATIVE) Hep Bs Antigen (NEGATIVE) Hep B Core IgM Ab (NEGATIVE) Hepatitis C Antibody (NEGATIVE) Blood Type A POSITIVE Antibody Screen Negative Crossmatch See Detail BBK History Checked Patient has bt 05/06/17 05/06/17 05/06/17 Range/Units 21:25 20:08 20:08 WBC 21.8 H (4.5-11.0) 10^3/ul RBC 2.41 L (3.5-6.1) 10^6/uL Hgb 8.1 L (14.0-18.0) g/dL Hct 23.6 L (42.0-52.0) % MCV 97.9 (80.0-105.0) fl MCH 33.6 (25.0-35.0) pg MCHC 34.3 (31.0-37.0) g/dl RDW 16.1 H (11.5-14.5) % Plt Count 206 (120.0-450.0) 10^3/uL MPV 8.9 (7.0-11.0) fl Gran % 89.5 H (50.0-68.0) % Lymph % (Auto) 5.3 L (22.0-35.0) % [place] % (Auto) 5.1 (1.0-6.0) % Eos % (Auto) 0.0 L (1.5-5.0) % Baso % (Auto) 0.1 (0.0-3.0) % Gran # 19.55 H (1.4-6.5) Lymph # 1.2 (1.2-3.4) [place] # 1.1 H (0.1-0.6) Eos # 0.0 (0.0-0.7) Baso # 0.02 (0.0-2.0) K/mm3 Neutrophils % (Manual) (50.0-70.0) % Band Neutrophils % (0-2) % Lymphocytes % (Manual) Monocytes % (Manual) (1.0-6.0) % Platelet Evaluation (NORMAL) PT (9.4-12.5) SECONDS INR (0.93-1.08) pCO2 (35-45) mm/Hg pO2 (80-100) mm/Hg HCO3 (21-28) mmol/L ABG pH (7.35-7.45) ABG Total CO2 (22-28) mmol.L ABG O2 Saturation (95-98) % ABG Base Excess (-2.0-3.0) mmol/L ABG Potassium (3.6-5.2) mmol/L Glucose (75-110) mg/dl Lactate (0.7-2.1) mmol/L Mechanical Rate FiO2 % Tidal Volume PEEP Sodium (132-148) mmol/L Potassium (3.6-5.0) mmol/L Chloride (98-107) mmol/L Carbon Dioxide (21-33) mmol/L Anion Gap (10-20) BUN (7-21) mg/dL Creatinine (0.8-1.5) mg/dL Est GFR ( Amer) Est GFR (Non-Af Amer) Random Glucose (70-110) mg/dL Lactic Acid 4.7 H* (0.7-2.1) mmol/L Calcium (8.4-10.5) mg/dL Total Bilirubin (0.2-1.3) mg/dL AST (17-59) U/L ALT (7-56) U/L Alkaline Phosphatase (38-126) U/L Ammonia (9-33) umol/L Lactate Dehydrogenase [id number] H (333-699) U/L Total Creatine Kinase (35-230) U/L CK-MB (CK-2) (0.0-3.6) ng/mL CK-MB (CK-2) % (2.5-3.0) % Troponin I 3.30 H* ng/mL Total Protein (5.8-8.3) g/dL Albumin (3.0-4.8) g/dL Globulin gm/dL Albumin/Globulin Ratio (1.1-1.8) Arterial Blood Potassium (3.6-5.2) mmol/L Hepatitis A IgM Ab (NEGATIVE) Hep Bs Antigen (NEGATIVE) Hep B Core IgM Ab (NEGATIVE) Hepatitis C Antibody (NEGATIVE) Blood Type Antibody Screen Crossmatch BBK History Checked 05/06/17 05/06/17 05/06/17 Range/Units 16:51 16:51 16:51 WBC 20.2 H (4.5-11.0) 10^3/ul RBC 2.59 L (3.5-6.1) 10^6/uL Hgb 8.7 L (14.0-18.0) g/dL Hct 25.3 L (42.0-52.0) % MCV 97.7 (80.0-105.0) fl MCH 33.6 (25.0-35.0) pg MCHC 34.4 (31.0-37.0) g/dl RDW 16.1 H (11.5-14.5) % Plt Count 223 (120.0-450.0) 10^3/uL MPV 8.9 (7.0-11.0) fl Gran % 90.1 H (50.0-68.0) % Lymph % (Auto) 3.3 L (22.0-35.0) % [place] % (Auto) 6.5 H (1.0-6.0) % Eos % (Auto) 0.1 L (1.5-5.0) % Baso % (Auto) 0.0 (0.0-3.0) % Gran # 18.16 H (1.4-6.5) Lymph # 0.7 L (1.2-3.4) [place] # 1.3 H (0.1-0.6) Eos # 0.0 (0.0-0.7) Baso # 0.01 (0.0-2.0) K/mm3 Neutrophils % (Manual) 86 H (50.0-70.0) % Band Neutrophils % 9 H (0-2) % Lymphocytes % (Manual) TEST NOT PERFORMED Monocytes % (Manual) 5 (1.0-6.0) % Platelet Evaluation Normal (NORMAL) PT (9.4-12.5) SECONDS INR (0.93-1.08) pCO2 (35-45) mm/Hg pO2 (80-100) mm/Hg HCO3 (21-28) mmol/L ABG pH (7.35-7.45) ABG Total CO2 (22-28) mmol.L ABG O2 Saturation (95-98) % ABG Base Excess (-2.0-3.0) mmol/L ABG Potassium (3.6-5.2) mmol/L Glucose (75-110) mg/dl Lactate (0.7-2.1) mmol/L Mechanical Rate FiO2 % Tidal Volume PEEP Sodium (132-148) mmol/L Potassium (3.6-5.0) mmol/L Chloride (98-107) mmol/L Carbon Dioxide (21-33) mmol/L Anion Gap (10-20) BUN (7-21) mg/dL Creatinine (0.8-1.5) mg/dL Est GFR ( Amer) Est GFR (Non-Af Amer) Random Glucose (70-110) mg/dL Lactic Acid (0.7-2.1) mmol/L Calcium (8.4-10.5) mg/dL Total Bilirubin (0.2-1.3) mg/dL AST (17-59) U/L ALT (7-56) U/L Alkaline Phosphatase (38-126) U/L Ammonia (9-33) umol/L Lactate Dehydrogenase (333-699) U/L Total Creatine Kinase 352 H (35-230) U/L CK-MB (CK-2) 8.6 H (0.0-3.6) ng/mL CK-MB (CK-2) % 2.4 L (2.5-3.0) % Troponin I 2.83 H* D ng/mL Total Protein (5.8-8.3) g/dL Albumin (3.0-4.8) g/dL Globulin gm/dL Albumin/Globulin Ratio (1.1-1.8) Arterial Blood Potassium (3.6-5.2) mmol/L Hepatitis A IgM Ab Negative (NEGATIVE) Hep Bs Antigen Negative (NEGATIVE) Hep B Core IgM Ab Negative (NEGATIVE) Hepatitis C Antibody Negative (NEGATIVE) Blood Type Antibody Screen Crossmatch BBK History Checked 05/06/17 05/06/17 05/06/17 Range/Units 15:30 15:30 15:30 WBC (4.5-11.0) 10^3/ul RBC (3.5-6.1) 10^6/uL Hgb (14.0-18.0) g/dL Hct (42.0-52.0) % MCV (80.0-105.0) fl MCH (25.0-35.0) pg MCHC (31.0-37.0) g/dl RDW (11.5-14.5) % Plt Count (120.0-450.0) 10^3/uL MPV (7.0-11.0) fl Gran % (50.0-68.0) % Lymph % (Auto) (22.0-35.0) % [place] % (Auto) (1.0-6.0) % Eos % (Auto) (1.5-5.0) % Baso % (Auto) (0.0-3.0) % Gran # (1.4-6.5) Lymph # (1.2-3.4) [place] # (0.1-0.6) Eos # (0.0-0.7) Baso # (0.0-2.0) K/mm3 Neutrophils % (Manual) (50.0-70.0) % Band Neutrophils % (0-2) % Lymphocytes % (Manual) Monocytes % (Manual) (1.0-6.0) % Platelet Evaluation (NORMAL) PT (9.4-12.5) SECONDS INR (0.93-1.08) pCO2 (35-45) mm/Hg pO2 (80-100) mm/Hg HCO3 (21-28) mmol/L ABG pH (7.35-7.45) ABG Total CO2 (22-28) mmol.L ABG O2 Saturation (95-98) % ABG Base Excess (-2.0-3.0) mmol/L ABG Potassium (3.6-5.2) mmol/L Glucose (75-110) mg/dl Lactate (0.7-2.1) mmol/L Mechanical Rate FiO2 % Tidal Volume PEEP Sodium 142 (132-148) mmol/L Potassium 4.6 (3.6-5.0) mmol/L Chloride 114 H (98-107) mmol/L Carbon Dioxide 16 L (21-33) mmol/L Anion Gap 17 (10-20) BUN 71 H (7-21) mg/dL Creatinine 2.3 H (0.8-1.5) mg/dL Est GFR ( Amer) 34 Est GFR (Non-Af Amer) 28 Random Glucose 104 (70-110) mg/dL Lactic Acid 3.4 H (0.7-2.1) mmol/L Calcium 7.9 L (8.4-10.5) mg/dL Total Bilirubin 1.1 (0.2-1.3) mg/dL AST 4439 H (17-59) U/L ALT 2762 H (7-56) U/L Alkaline Phosphatase 57 (38-126) U/L Ammonia 22 (9-33) umol/L Lactate Dehydrogenase (333-699) U/L Total Creatine Kinase (35-230) U/L CK-MB (CK-2) (0.0-3.6) ng/mL CK-MB (CK-2) % (2.5-3.0) % Troponin I ng/mL Total Protein 4.6 L (5.8-8.3) g/dL Albumin 2.2 L (3.0-4.8) g/dL Globulin 2.4 gm/dL Albumin/Globulin Ratio 0.9 L (1.1-1.8) Arterial Blood Potassium (3.6-5.2) mmol/L Hepatitis A IgM Ab (NEGATIVE) Hep Bs Antigen (NEGATIVE) Hep B Core IgM Ab (NEGATIVE) Hepatitis C Antibody (NEGATIVE) Blood Type Antibody Screen Crossmatch BBK History Checked Laboratory Results - last 24 hr 05/06/17 05/06/17 05/06/17 15:30 15:30 15:30 WBC RBC Hgb Hct MCV MCH MCHC RDW Plt Count MPV Gran % Lymph % (Auto) [place] % (Auto) Eos % (Auto) Baso % (Auto) Gran # Lymph # [place] # Eos # Baso # Neutrophils % (Manual) Band Neutrophils % Lymphocytes % (Manual) Monocytes % (Manual) Platelet Evaluation PT INR pCO2 pO2 HCO3 ABG pH ABG Total CO2 ABG O2 Saturation ABG Base Excess ABG Potassium Glucose Lactate Mechanical Rate FiO2 Tidal Volume PEEP Sodium 142 Potassium 4.6 Chloride 114 H Carbon Dioxide 16 L Anion Gap 17 BUN 71 H Creatinine 2.3 H Est GFR ( Amer) 34 Est GFR (Non-Af Amer) 28 Random Glucose 104 Lactic Acid 3.4 H Calcium 7.9 L Total Bilirubin 1.1 AST 4439 H ALT 2762 H Alkaline Phosphatase 57 Ammonia 22 Lactate Dehydrogenase Total Creatine Kinase CK-MB (CK-2) CK-MB (CK-2) % Troponin I Total Protein 4.6 L Albumin 2.2 L Globulin 2.4 Albumin/Globulin Ratio 0.9 L Arterial Blood Potassium Hepatitis A IgM Ab Hep Bs Antigen Hep B Core IgM Ab Hepatitis C Antibody Blood Type Antibody Screen Crossmatch BBK History Checked 05/06/17 05/06/17 05/06/17 16:51 16:51 16:51 WBC 20.2 H RBC 2.59 L Hgb 8.7 L Hct 25.3 L MCV 97.7 MCH 33.6 MCHC 34.4 RDW 16.1 H Plt Count 223 MPV 8.9 Gran % 90.1 H Lymph % (Auto) 3.3 L [place] % (Auto) 6.5 H Eos % (Auto) 0.1 L Baso % (Auto) 0.0 Gran # 18.16 H Lymph # 0.7 L [place] # 1.3 H Eos # 0.0 Baso # 0.01 Neutrophils % (Manual) 86 H Band Neutrophils % 9 H Lymphocytes % (Manual) TEST NOT PERFORMED Monocytes % (Manual) 5 Platelet Evaluation Normal PT INR pCO2 pO2 HCO3 ABG pH ABG Total CO2 ABG O2 Saturation ABG Base Excess ABG Potassium Glucose Lactate Mechanical Rate FiO2 Tidal Volume PEEP Sodium Potassium Chloride Carbon Dioxide Anion Gap BUN Creatinine Est GFR ( Amer) Est GFR (Non-Af Amer) Random Glucose Lactic Acid Calcium Total Bilirubin AST ALT Alkaline Phosphatase Ammonia Lactate Dehydrogenase Total Creatine Kinase 352 H CK-MB (CK-2) 8.6 H CK-MB (CK-2) % 2.4 L Troponin I 2.83 H* D Total Protein Albumin Globulin Albumin/Globulin Ratio Arterial Blood Potassium Hepatitis A IgM Ab Negative Hep Bs Antigen Negative Hep B Core IgM Ab Negative Hepatitis C Antibody Negative Blood Type Antibody Screen Crossmatch BBK History Checked 05/06/17 05/06/17 05/06/17 20:08 20:08 21:25 WBC 21.8 H RBC 2.41 L Hgb 8.1 L Hct 23.6 L MCV 97.9 MCH 33.6 MCHC 34.3 RDW 16.1 H Plt Count 206 MPV 8.9 Gran % 89.5 H Lymph % (Auto) 5.3 L [place] % (Auto) 5.1 Eos % (Auto) 0.0 L Baso % (Auto) 0.1 Gran # 19.55 H Lymph # 1.2 [place] # 1.1 H Eos # 0.0 Baso # 0.02 Neutrophils % (Manual) Band Neutrophils % Lymphocytes % (Manual) Monocytes % (Manual) Platelet Evaluation PT INR pCO2 pO2 HCO3 ABG pH ABG Total CO2 ABG O2 Saturation ABG Base Excess ABG Potassium Glucose Lactate Mechanical Rate FiO2 Tidal Volume PEEP Sodium Potassium Chloride Carbon Dioxide Anion Gap BUN Creatinine Est GFR ( Amer) Est GFR (Non-Af Amer) Random Glucose Lactic Acid 4.7 H* Calcium Total Bilirubin AST ALT Alkaline Phosphatase Ammonia Lactate Dehydrogenase 04938 H Total Creatine Kinase CK-MB (CK-2) CK-MB (CK-2) % Troponin I 3.30 H* Total Protein Albumin Globulin Albumin/Globulin Ratio Arterial Blood Potassium Hepatitis A IgM Ab Hep Bs Antigen Hep B Core IgM Ab Hepatitis C Antibody Blood Type Antibody Screen Crossmatch BBK History Checked 05/06/17 05/06/17 05/06/17 21:25 22:14 22:53 WBC RBC Hgb Hct MCV MCH MCHC RDW Plt Count MPV Gran % Lymph % (Auto) [place] % (Auto) Eos % (Auto) Baso % (Auto) Gran # Lymph # [place] # Eos # Baso # Neutrophils % (Manual) Band Neutrophils % Lymphocytes % (Manual) Monocytes % (Manual) Platelet Evaluation PT 24.2 H INR 2.19 H pCO2 pO2 HCO3 ABG pH ABG Total CO2 ABG O2 Saturation ABG Base Excess ABG Potassium Glucose Lactate Mechanical Rate FiO2 Tidal Volume PEEP Sodium 142 Potassium 4.6 Chloride 116 H Carbon Dioxide 13 L Anion Gap 18 BUN 72 H Creatinine 2.5 H Est GFR ( Amer) 31 Est GFR (Non-Af Amer) 25 Random Glucose 99 Lactic Acid Calcium 7.4 L Total Bilirubin 1.2 AST 8792 H ALT 4263 H Alkaline Phosphatase 58 Ammonia Lactate Dehydrogenase Total Creatine Kinase CK-MB (CK-2) CK-MB (CK-2) % Troponin I Total Protein 4.4 L Albumin 2.0 L Globulin 2.3 Albumin/Globulin Ratio 0.9 L Arterial Blood Potassium Hepatitis A IgM Ab Hep Bs Antigen Hep B Core IgM Ab Hepatitis C Antibody Blood Type A POSITIVE Antibody Screen Negative Crossmatch See Detail BBK History Checked Patient has bt 05/07/17 05/07/17 05/07/17 01:17 06:30 06:30 WBC 22.6 H RBC 3.22 L Hgb 10.3 L D Hct 30.3 L MCV 94.1 D MCH 32.0 MCHC 34.0 RDW 16.2 H Plt Count 188 MPV 9.2 Gran % 87.4 H Lymph % (Auto) 6.6 L [place] % (Auto) 5.9 Eos % (Auto) 0.0 L Baso % (Auto) 0.1 Gran # 19.74 H Lymph # 1.5 [place] # 1.3 H Eos # 0.0 Baso # 0.02 Neutrophils % (Manual) Band Neutrophils % Lymphocytes % (Manual) Monocytes % (Manual) Platelet Evaluation PT INR pCO2 22 L pO2 121.0 H HCO3 10.3 L ABG pH 7.28 L ABG Total CO2 11.0 L ABG O2 Saturation 99.6 H ABG Base Excess -14.4 L ABG Potassium 4.5 Glucose 96 Lactate 5.0 H* Mechanical Rate FiO2 40.0 Tidal Volume PEEP Sodium 141.0 Potassium Chloride 116.0 H Carbon Dioxide Anion Gap BUN Creatinine Est GFR ( Amer) Est GFR (Non-Af Amer) Random Glucose Lactic Acid Calcium Total Bilirubin AST ALT Alkaline Phosphatase Ammonia Lactate Dehydrogenase Total Creatine Kinase CK-MB (CK-2) CK-MB (CK-2) % Troponin I 3.25 H* Total Protein Albumin Globulin Albumin/Globulin Ratio Arterial Blood Potassium 4.5 Hepatitis A IgM Ab Hep Bs Antigen Hep B Core IgM Ab Hepatitis C Antibody Blood Type Antibody Screen Crossmatch BBK History Checked 05/07/17 05/07/17 05/07/17 06:30 06:30 08:06 WBC RBC Hgb Hct MCV MCH MCHC RDW Plt Count MPV Gran % Lymph % (Auto) [place] % (Auto) Eos % (Auto) Baso % (Auto) Gran # Lymph # [place] # Eos # Baso # Neutrophils % (Manual) Band Neutrophils % Lymphocytes % (Manual) Monocytes % (Manual) Platelet Evaluation PT 23.6 H INR 2.11 H pCO2 26 L pO2 86.0 HCO3 14.7 L ABG pH 7.36 ABG Total CO2 15.5 L ABG O2 Saturation 99.0 H ABG Base Excess -9.1 L ABG Potassium 3.8 Glucose 118 H Lactate 1.7 Mechanical Rate 20 FiO2 35.0 Tidal Volume 400 PEEP 5 Sodium 146 141.0 Potassium 4.0 Chloride 118 H 118.0 H Carbon Dioxide 16 L Anion Gap 16 BUN 79 H Creatinine 2.8 H Est GFR ( Amer) 27 Est GFR (Non-Af Amer) 22 Random Glucose 116 H Lactic Acid Calcium 7.4 L Total Bilirubin 1.3 AST 09610 H ALT 5970 H Alkaline Phosphatase 84 Ammonia Lactate Dehydrogenase Total Creatine Kinase CK-MB (CK-2) CK-MB (CK-2) % Troponin I Total Protein 4.6 L Albumin 2.1 L Globulin 2.4 Albumin/Globulin Ratio 0.9 L Arterial Blood Potassium 3.8 Hepatitis A IgM Ab Hep Bs Antigen Hep B Core IgM Ab Hepatitis C Antibody Blood Type Antibody Screen Crossmatch BBK History Checked 05/07/17 05/07/17 05/07/17 11:00 11:00 11:00 WBC 21.2 H RBC 3.30 L Hgb 10.9 L Hct 30.9 L MCV 93.6 MCH 33.0 MCHC 35.3 RDW 16.3 H Plt Count 189 MPV 9.2 Gran % 86.9 H Lymph % (Auto) 8.0 L [place] % (Auto) 4.8 Eos % (Auto) 0.2 L Baso % (Auto) 0.1 Gran # 18.46 H Lymph # 1.7 [place] # 1.0 H Eos # 0.0 Baso # 0.03 Neutrophils % (Manual) Band Neutrophils % Lymphocytes % (Manual) Monocytes % (Manual) Platelet Evaluation PT 20.9 H INR 1.88 H pCO2 pO2 HCO3 ABG pH ABG Total CO2 ABG O2 Saturation ABG Base Excess ABG Potassium Glucose Lactate Mechanical Rate FiO2 Tidal Volume PEEP Sodium 147 Potassium 3.9 Chloride 118 H Carbon Dioxide 17 L Anion Gap 16 BUN 82 H Creatinine 2.9 H Est GFR ( Amer) 26 Est GFR (Non-Af Amer) 21 Random Glucose 107 Lactic Acid Calcium 7.4 L Total Bilirubin 1.2 AST 96706 H ALT 5745 H Alkaline Phosphatase 102 Ammonia Lactate Dehydrogenase Total Creatine Kinase CK-MB (CK-2) CK-MB (CK-2) % Troponin I Total Protein 4.6 L Albumin 2.1 L Globulin 2.5 Albumin/Globulin Ratio 0.8 L Arterial Blood Potassium Hepatitis A IgM Ab Hep Bs Antigen Hep B Core IgM Ab Hepatitis C Antibody Blood Type Antibody Screen Crossmatch BBK History Checked EKG/Cardiology Studies: Cardiology / EKG Studies 05/06/17 17:44 EKG [ELECTROCARDIOGRAM] Stat Comment: Reason For Exam: elevated trop Critical Care Progress Note - Nutrition Nutrition: Nutrition Category Date Time Status NPO Diet [DIET] Diets 05/04/17 Breakfast Ordered Attending/Attestation - Attestation I have personally seen and examined this patient.: Yes I have fully participated in the care of the patient.: Yes I have reviewed all pertinent clinical information: Yes Notes (Text): 05/07/17 13:17 77 y/o M w/ Now septic shock in the setting of MODS. S/P surgery for perforated gastric ulcer. Yesterday found to have transaminitis, worsening JADEN, elevated WBC and Shock. Acute liver failure in the setting of Shock liver vs ischemic/ thrombotic cause . New onset A Fib/ Flutter. On Meropenum for empiric coverage. May add vancomycin and re draw Blood cx. AC/VC on minimal vent settings . Keep pao2> 60 and PH> 7.3 On Bicarbonate drip and titrate CMP and CBC q 6 hrs. NSTEMi and NEW CVA noted. MRi brain to be done today to visualize the CVA clearly. No anticoagulation currrently due to new black stool x2 yesterday 2 units [place]. Jaden likely from ATN. Urine output poor . Off vasopressors currently . Will monitor output and signs of HRS. 4 L IV fluids given. Album can be given but PRBC x 2 were given. GI and surgery aware and following. No family contact. Poor prognosis . Mental status improved today but not safe to extubate. Precedex ordered due to vent asychrony . Poor prognosis. cc time 55 min
[2017-05-07] MEDS: Meropenem 1g/NS 100mL IVPB 1 GM/100 ML PIGGYBACK IVPB SCH ×2 (13:43→21:57)
[2017-05-07] MEDS ORDERED: Albumin Human 25% (12.5 gm/50 ml) IV ONE ×2 (14:14→16:00)
--- NOTE | 2017-05-07 15:23 | CP.PCM.PN ---
<Lily Bennett - Last Filed: 05/07/17 15:21> Subjective - Date & Time of Evaluation Date of Evaluation: 05/07/17 Time of Evaluation: 08:00 - Subjective Subjective: PGY-[address] Bowser Patient seen and examined at bedside in ICU. Patient is currently intubated on sedation. Continues to have abd pain, S/p ex lap pod #3. Patient continues to have uncontrolled a. fib with RVR. Objective - Vital Signs/Intake and Output Vital Signs (last 24 hours): Temp Pulse Resp BP Pulse Ox 99 F 106 H 30 H 137/63 97 05/07/17 12:00 05/07/17 10:00 05/07/17 07:26 05/07/17 08:11 05/07/17 07:26 Intake and Output: 05/07/17 05/07/17 06:59 18:59 Intake Total 2450 80.0 Output Total 560 Balance 1890 80.0 - Medications Medications: Current Medications Albumin Human (Albumin Human 25% (12.5 Gm/50 Ml)) 12.5 gm IV ONCE ONE Stop: 05/07/17 16:01 Albuterol/Ipratropium (Duoneb 3 Mg/0.5 Mg (3 Ml) Ud) 3 ml IH [id number] [facility] Last Admin: 05/07/17 13:33 Dose: 3 ml Amlodipine Besylate (Norvasc) 10 mg PO DAILY [facility] Last Admin: 05/03/17 10:25 Dose: Not Given Chlorhexidine Gluconate (Peridex) 15 ml PO BID [facility] Last Admin: 05/07/17 13:42 Dose: 15 ml Hydralazine HCl (Apresoline) 10 mg IVP Q6 PRN PRN Reason: SBP> 160 Last Admin: 05/04/17 17:42 Dose: 10 mg Meropenem 1g/NS 100mL IVPB (Meropenem 1g/Ns 100ml Ivpb) 1 gm in 100 mls @ 100 mls/hr IVPB Q12 [facility] PRN Reason: Protocol Stop: 05/13/17 10:16 Last Admin: 05/07/17 13:43 Dose: 100 mls/hr Amiodarone HCl/Dextrose (Nexterone 360 Mg In D5w 200 Ml (Premix)) 360 mg in 200 mls @ 33.333 mls/hr IV .Q6H [facility]; 1 MG/MIN PRN Reason: Protocol Last Admin: 05/06/17 16:30 Dose: Not Given Fentanyl Citrate (Fentanyl Citrate/Sodium Chloride 1 Mg/100 Ml) 1,000 mcg in 100 mls @ 5 mls/hr IV .Q20H PRN; Protocol; 50 MCG/HR PRN Reason: TITRATE PER MD ORDER NOREPINEPHRINE BIT/0.9 % NACL (Levophed 4 Mg/ 250 Ml Ns Premixed) 4 mg in 250 mls @ 15 mls/hr IV .[id number] PRN; Protocol; 4 MCG/MIN PRN Reason: TITRATE PER MD ORDER Last Titration: 05/07/17 09:00 Dose: 0 mcg/min, 0 mls/hr Sodium Chloride (Sodium Chloride 0.9%) 1,000 mls @ 100 mls/hr IV .Q10H [facility] Last Admin: 05/07/17 12:13 Dose: Not Given Sodium Bicarbonate 100 meq/ (Sodium Chloride) 1,100 mls @ 150 mls/hr IV .Q7H20M [facility] Last Admin: 05/07/17 09:43 Dose: 150 mls/hr diltiaZEM IVPB 100mg in NS (Cardizem 100mg In Ns) 100 mls @ 5 mls/hr IV .Q20H PRN; Protocol; 5 MG/HR PRN Reason: TITRATE PER MD ORDER Last Titration: 05/07/17 09:00 Dose: 0 mg/hr, 0 mls/hr Dexmedetomidine HCl (Precedex 4 Mcg/Ml (100 Ml)) 400 mcg in 100 mls @ 4.264 mls /hr IV .[id number] PRN; Protocol; 0.2 MCG/KG/HR PRN Reason: Sedation Last Admin: 05/07/17 12:00 Dose: 0.2 mcg/kg/hr, 4.264 mls/hr Metoprolol Tartrate (Lopressor) 5 mg IVP Q6H [facility] Last Admin: 05/06/17 17:34 Dose: Not Given Midazolam HCl (Versed Inj) 4 mg IVP Q4H PRN PRN Reason: Agitation Last Admin: 05/06/17 04:40 Dose: 4 mg Morphine Sulfate (Morphine) 2 mg IVP Q3H PRN PRN Reason: Pain, severe (8-10) Nitroglycerin (Nitro-Bid 2% Oint) 1 ea TOP 0000,0600,1200,1800 [facility] Last Admin: 05/07/17 13:46 Dose: Not Given Pantoprazole Sodium (Protonix Inj) 40 mg IVP Q12 [facility] Last Admin: 05/07/17 09:43 Dose: 40 mg Verapamil HCl (Verapamil Inj) 2.5 mg IVP Q6H PRN PRN Reason: for HEAT rate >130 - Labs Labs: 05/07/17 11:00 05/07/17 11:00 PT 20.9 SECONDS (9.4-12.5) H 05/07/17 11:00 INR 1.88 (0.93-1.08) H 05/07/17 11:00 APTT 32.9 Seconds (23.7-30.8) H 05/06/17 04:45 - Constitutional Appears: No Acute Distress - Head Exam Head Exam: ATRAUMATIC, NORMAL INSPECTION, NORMOCEPHALIC - Eye Exam Eye Exam: EOMI, Normal appearance - ENT Exam ENT Exam: Mucous Membranes Moist - Respiratory Exam Respiratory Exam: Clear to Ausculation Bilateral. absent: Rhonchi, Wheezes Additional comments: intubated - Cardiovascular Exam Cardiovascular Exam: Tachycardia, Irregular Rhythm - GI/Abdominal Exam GI & Abdominal Exam: Soft, Tenderness. absent: Distended, Firm Additional comments: dressing clean, dry and intact - Extremities Exam Extremities Exam: Normal Inspection. absent: Pedal Edema, Tenderness - Neurological Exam Additional comments: patient intubated and sedated - Skin Skin Exam: Dry, Intact, Normal Color, Warm Assessment and Plan - Assessment and Plan (Free Text) Assessment: 77 yo male with no significant PMH initially presented with hyponatremia, hypokalemia, NSTEMI, s/p fall. Patient's found to have acute anemia due to blood loss from perforated gastric ulcer, patient went to surgery. Patient appears have septic shock with metabolic acidosis with multiorgan failure including respiratory failure, JADEN, liver failure, most likely due to sepsis. Patient intubated due to respiratory failure. Patient had episode of hypotension require pressors. Plan: 1. septic shock with metabolic acidosis with multiorgan failure - most likely due to abd perforation - hypotensive, started on levophed overnight - AM labs reviewed leukocytosis, elevated lactate - blood cultures negative - urine cultures negative - meropenum day 3 - cont IVF NS with sodiumbicarb at 150cc/ho - procalcitonin elevated - cxr bibasilar infiltrate - ID following 2. acute anemia due to blood loss from perforated gastric ulcer - AM labs reviewed, Hgb 10, patient recieved another 2 units prbc yesterday - recieved total 4 units pRBC - CT abd/ pel without PO/IV contrast reviewed showed free air with perforation ( refer to full report) - s/p laparotomy with wedge resection pod#3 - cont meropenem - protonix 40 q12 - cont IVF NS with sodiumbicarb at 150cc/ho - GI and surgery following 3. respiratory failure - patient is sedated and intubated on PRVC - CT chest showed moderate size pleural effusions left greater than right, minimal bibasilar consolidation adjacent to effusions, minimal right upper lobe interstitial infiltrates - abx, meropenem - ID consulted for sepsis 4. NSTEMI - troponin elevated - Echo on 05/01 showed mild concentric left ventricular hypertrophy, EF-55%, Mitral regurgitation is mild to moderate, mild tricuspid regurgitation, no pericardial effusion. - patient was scheduled for cath, however was postponed due to GI bleed - asa and plavix stopped - cont topical nitroglycerin - cont metoprolol - amiodarone started 5. A. Fib with RVR - Tachycardia this AM - Amiodarone held due to acute liver failure - cardizem drip started with levophed to avoid hypotension - Repeat echocardiogram ordered for evaluation of atrial fibrillation and possible thrombus formation 6. elevated LFTs - most likely due to hypotension, shocked liver vs sepsis - continues to up trend - hepatitis panel ordered - stopped Lipitor and amiodarone - GI following 7. possible Stroke - Head CT showed foci of hypodensity at posterior parietal and occipital lobes bilateral larger on left suspicious for acute infarct - MRI pending for continued evaluation - Patient placed on precedex - Ammonia normal - will not start anticoagulation, anti platelet tx due to risk of bleeding - Continue to monitor 8. severe hyponatremia and hypokalemia - labs reviewed, Na and K improving - most likely hypotonic, hypovolemic hyponatremia - cont IVF NS at 100cc/ho 9. JADEN - most likely pre-renal due to hypotension - continues to worsen with decreased urine output - cont IVF NS@100cc - cont to monitor 10. s/p fall - CT head showed No intracranial mass, hemorrhage or evidence of acute infarct. - CT chest showed No evidence of lung mass, Vertebral fracture of T8, Multiple left-sided rib fractures with a moderate size left pleural effusion. - pain control 11. HTN - patient had episodes of hypotension - BP meds placed on hold due to hypotension - cont to monitor <Jarocho Bowser S - Last Filed: 05/07/17 17:45> Objective - Vital Signs/Intake and Output Vital Signs (last 24 hours): Temp Pulse Resp BP Pulse Ox 99 F 106 H 30 H 137/63 97 05/07/17 12:00 05/07/17 10:00 05/07/17 07:26 05/07/17 08:11 05/07/17 07:26 Intake and Output: 05/07/17 05/07/17 06:59 18:59 Intake Total 2450 80.0 Output Total 560 Balance 1890 80.0 - Medications Medications: Current Medications Albuterol/Ipratropium (Duoneb 3 Mg/0.5 Mg (3 Ml) Ud) 3 ml IH [id number] [facility] Last Admin: 05/07/17 13:33 Dose: 3 ml Amlodipine Besylate (Norvasc) 10 mg PO DAILY [facility] Last Admin: 05/03/17 10:25 Dose: Not Given Chlorhexidine Gluconate (Peridex) 15 ml PO BID [facility] Last Admin: 05/07/17 17:36 Dose: 15 ml Hydralazine HCl (Apresoline) 10 mg IVP Q6 PRN PRN Reason: SBP> 160 Last Admin: 05/04/17 17:42 Dose: 10 mg Meropenem 1g/NS 100mL IVPB (Meropenem 1g/Ns 100ml Ivpb) 1 gm in 100 mls @ 100 mls/hr IVPB Q12 [facility] PRN Reason: Protocol Stop: 05/13/17 10:16 Last Admin: 05/07/17 13:43 Dose: 100 mls/hr Amiodarone HCl/Dextrose (Nexterone 360 Mg In D5w 200 Ml (Premix)) 360 mg in 200 mls @ 33.333 mls/hr IV .Q6H [facility]; 1 MG/MIN PRN Reason: Protocol Last Admin: 05/06/17 16:30 Dose: Not Given Fentanyl Citrate (Fentanyl Citrate/Sodium Chloride 1 Mg/100 Ml) 1,000 mcg in 100 mls @ 5 mls/hr IV .Q20H PRN; Protocol; 50 MCG/HR PRN Reason: TITRATE PER MD ORDER NOREPINEPHRINE BIT/0.9 % NACL (Levophed 4 Mg/ 250 Ml Ns Premixed) 4 mg in 250 mls @ 15 mls/hr IV .[id number] PRN; Protocol; 4 MCG/MIN PRN Reason: TITRATE PER MD ORDER Last Titration: 05/07/17 09:00 Dose: 0 mcg/min, 0 mls/hr Sodium Chloride (Sodium Chloride 0.9%) 1,000 mls @ 100 mls/hr IV .Q10H [facility] Last Admin: 05/07/17 12:13 Dose: Not Given Sodium Bicarbonate 100 meq/ (Sodium Chloride) 1,100 mls @ 150 mls/hr IV .Q7H20M [facility] Last Admin: 05/07/17 09:43 Dose: 150 mls/hr diltiaZEM IVPB 100mg in NS (Cardizem 100mg In Ns) 100 mls @ 5 mls/hr IV .Q20H PRN; Protocol; 5 MG/HR PRN Reason: TITRATE PER MD ORDER Last Titration: 05/07/17 09:00 Dose: 0 mg/hr, 0 mls/hr Dexmedetomidine HCl (Precedex 4 Mcg/Ml (100 Ml)) 400 mcg in 100 mls @ 4.264 mls /hr IV .[id number] PRN; Protocol; 0.2 MCG/KG/HR PRN Reason: Sedation Last Admin: 05/07/17 12:00 Dose: 0.2 mcg/kg/hr, 4.264 mls/hr Metoprolol Tartrate (Lopressor) 5 mg IVP Q6H [facility] Last Admin: 05/06/17 17:34 Dose: Not Given Midazolam HCl (Versed Inj) 4 mg IVP Q4H PRN PRN Reason: Agitation Last Admin: 05/06/17 04:40 Dose: 4 mg Morphine Sulfate (Morphine) 2 mg IVP Q3H PRN PRN Reason: Pain, severe (8-10) Nitroglycerin (Nitro-Bid 2% Oint) 1 ea TOP 0000,0600,1200,1800 [facility] Last Admin: 05/07/17 17:36 Dose: Not Given Pantoprazole Sodium (Protonix Inj) 40 mg IVP Q12 [facility] Last Admin: 05/07/17 09:43 Dose: 40 mg Verapamil HCl (Verapamil Inj) 2.5 mg IVP Q6H PRN PRN Reason: for HEAT rate >130 - Labs Labs: 05/07/17 11:00 05/07/17 11:00 PT 20.9 SECONDS (9.4-12.5) H 05/07/17 11:00 INR 1.88 (0.93-1.08) H 05/07/17 11:00 APTT 32.9 Seconds (23.7-30.8) H 05/06/17 04:45 Assessment and Plan - Assessment and Plan (Free Text) Plan: Pt seen and examined. Agree with above note of medical front desk coordinator. Labs and meds reviewed. I reviewed the note of the process consultant on the case. Poor prognosis. Spoke to Elsa (DIMITRIOS) about finding next of kin. Going into multi-organ failure. Renal failure. Septic shock.
--- NOTE | 2017-05-07 15:27 | CP.PCM.PN ---
Subjective - Date & Time of Evaluation Date of Evaluation: 05/07/17 Time of Evaluation: 15:24 - Subjective Subjective: Surgery Pt s&e. Intubated. Response to pain stimuli, doesn't follow commands. Dressing changed this AM. Objective - Vital Signs/Intake and Output Vital Signs (last 24 hours): Temp Pulse Resp BP Pulse Ox 99 F 106 H 30 H 137/63 97 05/07/17 12:00 05/07/17 10:00 05/07/17 07:26 05/07/17 08:11 05/07/17 07:26 Intake and Output: 05/07/17 05/07/17 06:59 18:59 Intake Total 2450 80.0 Output Total 560 Balance 1890 80.0 - Medications Medications: Current Medications Albumin Human (Albumin Human 25% (12.5 Gm/50 Ml)) 12.5 gm IV ONCE ONE Stop: 05/07/17 16:01 Albuterol/Ipratropium (Duoneb 3 Mg/0.5 Mg (3 Ml) Ud) 3 ml IH [id number] SILVIA Last Admin: 05/07/17 13:33 Dose: 3 ml Amlodipine Besylate (Norvasc) 10 mg PO DAILY SILVIA Last Admin: 05/03/17 10:25 Dose: Not Given Chlorhexidine Gluconate (Peridex) 15 ml PO BID SILVIA Last Admin: 05/07/17 13:42 Dose: 15 ml Hydralazine HCl (Apresoline) 10 mg IVP Q6 PRN PRN Reason: SBP> 160 Last Admin: 05/04/17 17:42 Dose: 10 mg Meropenem 1g/NS 100mL IVPB (Meropenem 1g/Ns 100ml Ivpb) 1 gm in 100 mls @ 100 mls/hr IVPB Q12 SILVIA PRN Reason: Protocol Stop: 05/13/17 10:16 Last Admin: 05/07/17 13:43 Dose: 100 mls/hr Amiodarone HCl/Dextrose (Nexterone 360 Mg In D5w 200 Ml (Premix)) 360 mg in 200 mls @ 33.333 mls/hr IV .Q6H SILVIA; 1 MG/MIN PRN Reason: Protocol Last Admin: 05/06/17 16:30 Dose: Not Given Fentanyl Citrate (Fentanyl Citrate/Sodium Chloride 1 Mg/100 Ml) 1,000 mcg in 100 mls @ 5 mls/hr IV .Q20H PRN; Protocol; 50 MCG/HR PRN Reason: TITRATE PER MD ORDER NOREPINEPHRINE BIT/0.9 % NACL (Levophed 4 Mg/ 250 Ml Ns Premixed) 4 mg in 250 mls @ 15 mls/hr IV .[id number] PRN; Protocol; 4 MCG/MIN PRN Reason: TITRATE PER MD ORDER Last Titration: 05/07/17 09:00 Dose: 0 mcg/min, 0 mls/hr Sodium Chloride (Sodium Chloride 0.9%) 1,000 mls @ 100 mls/hr IV .Q10H SILVIA Last Admin: 05/07/17 12:13 Dose: Not Given Sodium Bicarbonate 100 meq/ (Sodium Chloride) 1,100 mls @ 150 mls/hr IV .Q7H20M [facility] Last Admin: 05/07/17 09:43 Dose: 150 mls/hr diltiaZEM IVPB 100mg in NS (Cardizem 100mg In Ns) 100 mls @ 5 mls/hr IV .Q20H PRN; Protocol; 5 MG/HR PRN Reason: TITRATE PER MD ORDER Last Titration: 05/07/17 09:00 Dose: 0 mg/hr, 0 mls/hr Dexmedetomidine HCl (Precedex 4 Mcg/Ml (100 Ml)) 400 mcg in 100 mls @ 4.264 mls /hr IV .[id number] PRN; Protocol; 0.2 MCG/KG/HR PRN Reason: Sedation Last Admin: 05/07/17 12:00 Dose: 0.2 mcg/kg/hr, 4.264 mls/hr Metoprolol Tartrate (Lopressor) 5 mg IVP Q6H [facility] Last Admin: 05/06/17 17:34 Dose: Not Given Midazolam HCl (Versed Inj) 4 mg IVP Q4H PRN PRN Reason: Agitation Last Admin: 05/06/17 04:40 Dose: 4 mg Morphine Sulfate (Morphine) 2 mg IVP Q3H PRN PRN Reason: Pain, severe (8-10) Nitroglycerin (Nitro-Bid 2% Oint) 1 ea TOP 0000,0600,1200,1800 [facility] Last Admin: 05/07/17 13:46 Dose: Not Given Pantoprazole Sodium (Protonix Inj) 40 mg IVP Q12 SILVIA Last Admin: 05/07/17 09:43 Dose: 40 mg Verapamil HCl (Verapamil Inj) 2.5 mg IVP Q6H PRN PRN Reason: for HEAT rate >130 - Labs Labs: 05/07/17 11:00 05/07/17 11:00 PT 20.9 SECONDS (9.4-12.5) H 05/07/17 11:00 INR 1.88 (0.93-1.08) H 05/07/17 11:00 APTT 32.9 Seconds (23.7-30.8) H 05/06/17 04:45 - Constitutional Appears: In Acute Distress - Head Exam Head Exam: ATRAUMATIC, NORMAL INSPECTION, NORMOCEPHALIC - Eye Exam Eye Exam: Normal appearance - ENT Exam Additional comments: INtubated. - Neck Exam Neck Exam: Normal Inspection. absent: Lymphadenopathy - Respiratory Exam Respiratory Exam: Respiratory Distress. absent: NORMAL BREATHING PATTERN - Cardiovascular Exam Cardiovascular Exam: +S1, +S2 - GI/Abdominal Exam GI & Abdominal Exam: Soft, Tenderness, Normal Bowel Sounds. absent: Distended, Firm, Guarding, Rigid Additional comments: Drain in place: SS 200cc. Dressing C/D/I. - Exam Additional comments: Rosario in place - Extremities Exam Extremities Exam: Normal Inspection - Back Exam Back Exam: NORMAL INSPECTION - Neurological Exam Neurological Exam: Awake. absent: Alert, Oriented x3 - Skin Skin Exam: Dry, Intact, Normal Color, Warm Assessment and Plan - Assessment and Plan (Free Text) Assessment: 77 M s/p Exploratory laparotomy and Gastric wedge resection for perforated gastric ulcer/pneumoperitoneum POD#3 -IV abx and IV fluids -Monitor Hgb and vitals -Management as per ICU -DW Dr. Macdonald
--- NOTE | 2017-05-07 16:14 | PN ---
DATE: 05/07/2017 REASON FOR CONSULTATION AND FOLLOWUP: Status post acute abdomen, status post perforation of the hollow viscus, status post exploratory laparotomy, postop intubation AFib/flutter, history of coronary artery disease. SUBJECTIVE: Patient remains on vent, minimally responsive to verbal stimuli. PHYSICAL EXAMINATION OBJECTIVE: On vent. VITAL SIGNS: As follows: Temperature afebrile, heart rate 130, blood pressure now 122/50 HEENT: PERRLA intact. NECK: Supple. No carotid bruits. No thyromegaly. CHEST: Clear to auscultation. ABDOMEN: Soft. Surgical abdomen. Mild tenderness. Opening the eyes sometimes on palpating the abdomen. EXTREMITIES: Clubbing and cyanosis negative. LABORATORY DATA: Blood workup as follows: WBC 21.8, hemoglobin 10.6, hematocrit 30.9, platelet count 189. Chemistry showed sodium 147, potassium 3.9, chloride 108, carbon dioxide 17, anion gap of 16, BUN 18, creatinine 2.9. AST 11,612, ALT 5742. Troponin 3.25. IMPRESSION: Acute kidney injury, acute liver injury, status post exploratory laparotomy, status post perforation of the hollow viscus, coronary artery disease, non-ST segment myocardial infarction, postoperative atrial fibrillation/flutter, severe protein calorie malnutrition, albumin 2.1, gastrointestinal bleed. His severe hypoalbuminemia is new, which was not present on admission. Admitting albumin is 4.2. Also, kidney injury is new, which was not present on admission. RECOMMENDATIONS: Monitor electrolytes, give 2 doses of IV albumin and start Cardizem, wean off Levophed as tolerated. Not a candidate for anticoagulation because patient had a recent history of the GI bleed and exploratory laparotomy and is status post surgery. INR is 1.88 with autoanticoagulation itself. We will also give 2 doses of __02:52___ blood pressure after that we can wean off the Levophed. Overall, the patient's condition is critical. residential prognosis is guarded. Thank you Dr. Bowser, for providing us the opportunity in taking care of Mr. Lyndon Blancas. Supa Nick MD [facility] # [id number]
--- NOTE | 2017-05-07 17:03 | MRI ---
PROCEDURE: MRI BRAIN WITHOUT CONTRAST HISTORY: CT head showing possible acute infarct COMPARISON: None. TECHNIQUE: Multiplanar, multisequence MR images of the brain were obtained without intravenous contrast enhancement. FINDINGS: HEMORRHAGE: None DWI: Extensive infarcts are seen in both cerebral hemispheres and the cerebellar hemispheres. The infarcts involve the frontal parietal and occipital lobes in a symmetrical pattern. The infarcts of the cerebellar hemispheres are also in a symmetrical pattern. Findings are consistent with a hypoxic or hypotensive event. BRAIN PARENCHYMA: The infarcts are also visible on the FLAIR and T2 images. There is cortical swelling and edema. There is no mass effect or midline shift VENTRICLES: Unremarkable. No hydrocephalus. CRANIUM: Unremarkable. ORBITS: Grossly unremarkable. PARANASAL SINUSES/MASTOIDS: Clear VASCULAR SYSTEM: Skull base flow voids intact. OTHER FINDINGS: None. 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 The infarcts involve the frontal parietal and occipital lobes in a symmetrical pattern. The infarcts of the cerebellar hemispheres are also in a symmetrical pattern. Findings are consistent with a hypoxic or hypotensive event.
[2017-05-07 18:24] LABS: BASO # 0.03 K/mm3 (0.0-2.0); BASO % 0.2 % (0.0-3.0); EOS # 0.1 (0.0-0.7); EOS % 0.3 % (1.5-5.0); GRAN # 12.8 (1.4-6.5); GRAN % 86.4 % (50.0-68.0); HEMATOCRIT 29.9 % (42.0-52.0); LYMPH # 1.2 (1.2-3.4); LYMPH % 8.2 % (22.0-35.0); MEAN CELL VOLUME 92.9 fl (80.0-105.0); MEAN CORPUSCULAR HGB CONC 34.4 g/dl (31.0-37.0); MEAN PLATELET VOLUME 9.5 fl (7.0-11.0); MONO # 0.7 (0.1-0.6); MONO % 4.9 % (1.0-6.0); RED CELL DISTRIBUTION WIDTH 16.3 % (11.5-14.5); WHITE BLOOD COUNT 14.8 10^3/ul (4.5-11.0)
[2017-05-07 18:34] LABS: ALB/GLOB RATIO 0.9 (1.1-1.8); BILIRUBIN,TOTAL 1.3 mg/dL (0.2-1.3); POTASSIUM 3.3 mmol/L (3.6-5.0); TOTAL PROTEIN 4.3 g/dL (5.8-8.3)
[2017-05-07 18:40] LABS: INR 1.89 (0.93-1.08)
--- NOTE | 2017-05-07 21:06 | CARD ---
APPROVED REPORT EKG Measurement Heart [id number] <Conclusion> Atrial fibrillation with rapid ventricular response Low voltage QRS Nonspecific ST and T wave abnormality, probably digitalis effect Abnormal ECG
[2017-05-07 23:08] LABS: INR 1.91 (0.93-1.08)
--- NOTE | 2017-05-08 01:39 | OP ---
PROCEDURE DATE: 05/04/2017 INDICATIONS: He was seen on the floor, perforated stomach, immediately taken to the Operating Room after the consent was obtained. PREOPERATIVE DIAGNOSIS: Perforated bowel. POSTOPERATIVE DIAGNOSIS: Perforated bowel. PROCEDURE: Laparotomy, partial gastric resection, and resection of an abscess by the colon. SURGEON: Lyndon Mccrary MD DESCRIPTION OF PROCEDURE: In the Operating Room, patient was identified by name, name of the procedure, laterality, my petros, the consent. The abdomen was prepped and draped quickly, given perioperative antibiotics. An upper midline incision was made through the skin and subcutaneous tissues and the abdomen explored. The duodenum was unremarkable and the anterior stomach. There was noted that there was blood in the transverse colon of the small bowel. Small bowel was run; it was unremarkable. Colon was unremarkable except for some stool and the blood aforementioned. There was some gas seen escaping from the omentum. The omentum was drawn up and the colon was drawn down and the lesser sac entered, and there was obviously free perforation of the greater curvature. The area was cleaned, taken with Chan. The omentum in the lesser sac was then cleaned from this area, and this was taken eventually with a TA 60. The NG tube was then replaced. The stomach was taken with 2-0 silk on a GI needle and imbricated. The area was irrigated and drained. A Abimael was placed. The incision was closed with a running #1 PDS above and below, tied in the middle. It was closed with interrupted angela. Lyndon Mccrary MD [facility]
[2017-05-08] MEDS: Albuterol-Ipratrop 3 mg / 0.5 (3 ml) UD IH SCH ×4 (02:41→20:00)
[2017-05-08] MEDS: Nitroglycerin 2% Ointment Foilpak UD TOP SCH ×2 (05:05→18:50)
[2017-05-08] MEDS: Dexmedetomidine HCl 4mcg/ml 400 MCG/100 ML BOTTLE IV PRN ×2 (05:25→23:09)
[2017-05-08 06:38] LABS: BASO # 0.03 K/mm3 (0.0-2.0); BASO % 0.2 % (0.0-3.0); EOS # 0.1 (0.0-0.7); EOS % 0.3 % (1.5-5.0); GRAN # 12.57 (1.4-6.5); GRAN % 84.8 % (50.0-68.0); HEMATOCRIT 31.9 % (42.0-52.0); LYMPH # 1.2 (1.2-3.4); LYMPH % 7.8 % (22.0-35.0); MEAN CELL VOLUME 92.7 fl (80.0-105.0); MEAN CORPUSCULAR HEMOGLOBIN 32.6 pg (25.0-35.0); MEAN CORPUSCULAR HGB CONC 35.1 g/dl (31.0-37.0); MEAN PLATELET VOLUME 9.6 fl (7.0-11.0); MONO % 6.9 % (1.0-6.0); RED CELL DISTRIBUTION WIDTH 16.4 % (11.5-14.5); WHITE BLOOD COUNT 14.8 10^3/ul (4.5-11.0)
[2017-05-08 06:46] LABS: ALB/GLOB RATIO 0.9 (1.1-1.8); BILIRUBIN,TOTAL 1.6 mg/dL (0.2-1.3); CALCIUM 7.1 mg/dL (8.4-10.5); POTASSIUM 3.5 mmol/L (3.6-5.0); TOTAL PROTEIN 4.4 g/dL (5.8-8.3)
[2017-05-08 06:49] LABS: INR 1.88 (0.93-1.08)
--- NOTE | 2017-05-08 07:59 | CP.CCUPN ---
<Juventino Allen - Last Filed: 05/08/17 12:26> CCU Subjective - Physician Review Subjective (Free Text): 05/08/17 07:31 Patient seen and examined in ICU. Overnight patient MRI of brain showed diffuse bilateral strokes. UOP continues to be poor. Patient also noted to have fungemia with recent blood culture. Will be started on appropriate antibiotics. CCU Objective - Vital Signs / Intake & Output Vital Signs (Last 4 hours): Vital Signs Temp Pulse BP Pulse Ox 05/08/17 06:30 99.1 F 91 H 88 L 05/08/17 06:00 99.0 F 90 146/72 87 L 05/08/17 05:30 98.8 F 85 89 L 05/08/17 05:01 99.0 F 77 153/67 H 97 05/08/17 05:00 99.1 F 82 97 05/08/17 04:30 99.3 F 109 H 93 L 05/08/17 04:16 99.3 F 106 H 101/76 97 05/08/17 04:15 99.3 F 108 H 05/08/17 04:10 99.3 F 119 H 87/53 L 92 L 05/08/17 04:00 99.3 F 110 H 87/41 L 90 L 05/08/17 03:50 99.3 F 106 H 98/51 L 91 L 05/08/17 03:40 99.3 F 131 H 96/61 L 90 L 05/08/17 03:39 99.3 F 123 H 05/08/17 03:38 99.3 F 128 H 05/08/17 03:37 99.3 F 134 H 05/08/17 03:36 99.3 F 141 H 05/08/17 03:35 99.3 F 139 H 05/08/17 03:34 99.3 F 135 H 05/08/17 03:33 99.3 F 141 H 05/08/17 03:32 99.1 F 127 H Intake and Output (Last 8hrs): Intake & Output 05/07/17 05/08/17 05/08/17 22:59 06:59 14:59 Intake Total 1999 1899 Output Total 615 60 Balance 1385 1840 Weight 236 lb 0.3 oz Intake: IV 1999 1899 Right External Jugular 1999 1800 Output: Gastric Amount 200 Nares 200 Drainage 15 60 Right Abdomen 10 Right Nare 15 50 Urine 200 Urethral ([place]) 200 Stool 200 - Physical Exam Head: Positive for: Atraumatic, Normocephalic Pupils: Positive for: PERRL. Negative for: Non-Reactive, Pinpoint Extroacular Muscles: Positive for: EOMI. Negative for: Gaze Palsy Conjunctiva: Positive for: Normal. Negative for: Injected, Icteric Mouth: Positive for: Moist Mucous Membranes, Normal Lips, Normal Tounge Nose (External): Positive for: Atraumatic. Negative for: Abrasion, Contusion, Laceration Neck: Positive for: Normal Range of Motion. Negative for: MIDLINE TENDERNESS, JVD, Lymphadenopathy, Trachea Midline Respiratory/Chest: Positive for: Clear to Auscultation, Good Air Exchange. Negative for: Respiratory Distress, Accessory Muscle Use, Wheezes, Decreased Breath Sounds, Rales, Rhonchi, Tachypneic, Tender to Palpation Cardiovascular: Positive for: Regular Rate and Rhythm, Normal S1, S2. Negative for: Murmurs, Irregular Rhythm, Tachycardic, Bradycardic Abdomen: Positive for: Tenderness, Other (surgical dressing midline c/d/i, gastric tube ). Negative for: Distention, Peritoneal Signs Rectal: Positive for: Melena, Other (rectal tube in place with bag collection of dark liquid melanotic stool) Genitourinary Male: Positive for: Normal External Genitalia, Other ([place] catheter in place ) Back: Positive for: Normal Inspection Upper Extremity: Positive for: Normal Inspection, Normal ROM, NORMAL PULSES, Capillary Refill < 2s. Negative for: Cyanosis, Edema, Swelling, Erythema, Deformity Lower Extremity: Positive for: Normal Inspection, NORMAL PULSES, Normal ROM. Negative for: Edema, CALF TENDERNESS, Cyanosis, Tenderness, Swelling, Erythema, Deformity, Capillary Refill < 2 s Neurological: Positive for: Other (intubated, off sedation, opens eyes to verbal stimuli, unable to follow commands at this time, corneal reflex present, pupils sluggish and slightly reactive ) Skin: Positive for: Warm, Dry, Normal Color. Negative for: Rashes Psychiatric: Positive for: Normal Affect, Normal Mood. Negative for: Anxious, Agitated - Medications Active Medications: Active Medications Generic Name Dose Route Start Last Admin Trade Name Freq PRN Reason Stop Dose Admin Albuterol/Ipratropium 3 ml 10/18/17 14:00 05/08/17 07:27 Duoneb 3 Mg/0.5 Mg (3 Ml) Ud IH 3 ml [id number] SILVIA Administration Amlodipine Besylate 10 mg 05/01/17 12:45 05/03/17 10:25 Norvasc PO Not Given DAILY SILVIA Chlorhexidine Gluconate 15 ml 05/05/17 11:00 05/07/17 17:36 Peridex PO 15 ml BID SILVIA Administration Hydralazine HCl 10 mg 05/01/17 02:36 05/04/17 17:42 Apresoline IVP 10 mg Q6 PRN Administration SBP> 160 Meropenem 1g/NS 100mL IVPB 1 gm in 100 mls @ 100 mls/hr 05/05/17 10:15 21:57 Meropenem 1g/Ns 100ml Ivpb IVPB 05/13/17 10:16 100 mls/hr Q12 SILVIA Administration Protocol Amiodarone HCl/Dextrose 360 mg in 200 mls @ 33.333 mls/hr 05/06/17 10:30 16:30 Nexterone 360 Mg In D5w 200 Ml (Premix) IV Not Given .Q6H SILVIA Protocol 1 MG/MIN Fentanyl Citrate 1,000 mcg in 100 mls @ 5 mls/hr 05/06/17 19:44 Fentanyl Citrate/Sodium Chloride 1 Mg/100 Ml IV .Q20H PRN TITRATE PER MD ORDER Protocol 50 MCG/HR NOREPINEPHRINE BIT/0.9 % NACL 4 mg in 250 mls @ 15 mls/hr 05/07/17 01:04 09:00 Levophed 4 Mg/ 250 Ml Ns Premixed IV 0 mcg/min .[id number] PRN 0 mls/hr TITRATE PER MD ORDER Titration Protocol 4 MCG/MIN Sodium Chloride 1,000 mls @ 100 mls/hr 05/07/17 06:00 05/07/17 12:13 Sodium Chloride 0.9% IV Not Given .Q10H SILVIA Sodium Bicarbonate 100 meq/ 1,100 mls @ 150 mls/hr 05/07/17 07:45 05/07/17 18 :33 Sodium Chloride IV 150 mls/hr .[id number] SILVIA Administration diltiaZEM IVPB 100mg in NS 100 mls @ 5 mls/hr 05/07/17 07:57 05/07/17 09:00 Cardizem 100mg In Ns IV 0 mg/hr .Q20H PRN 0 mls/hr TITRATE PER MD ORDER Titration Protocol 5 MG/HR Dexmedetomidine HCl 400 mcg in 100 mls @ 4.264 mls/hr 05/07/17 11:22 05:25 Precedex 4 Mcg/Ml (100 Ml) IV 0.2 mcg/kg/hr .[id number] PRN 4.264 mls/hr Sedation Administration Protocol 0.2 MCG/KG/HR Metoprolol Tartrate 5 mg 05/06/17 10:00 05/06/17 17:34 Lopressor IVP Not Given Q6H SILVIA Midazolam HCl 4 mg 05/04/17 18:44 05/06/17 04:40 Versed Inj IVP 4 mg Q4H PRN Administration Agitation Morphine Sulfate 2 mg 05/06/17 12:35 Morphine IVP Q3H PRN Pain, severe (8-10) Nitroglycerin 1 ea 05/02/17 00:00 05/08/17 05:05 Nitro-Bid 2% Oint TOP Not Given 0000,0600,1200,1800 SILVIA Pantoprazole Sodium 40 mg 05/06/17 10:00 05/07/17 21:57 Protonix Inj IVP 40 mg Q12 SILVIA Administration Verapamil HCl 2.5 mg 05/06/17 14:00 Verapamil Inj IVP Q6H PRN for HEAT rate >130 - Patient Studies Lab Studies: Microbiology Studies 05/04/17 19:30 Blood Culture - Preliminary Blood NO GROWTH AFTER 3 DAYS 05/04/17 19:00 Blood Culture - Preliminary Blood NO GROWTH AFTER 3 DAYS 05/06/17 10:50 Blood Culture - Preliminary Blood-Venous NO GROWTH AFTER 24 HOURS Lab Studies 05/08/17 05/08/17 05/08/17 Range/Units 06:10 06:10 06:10 WBC 14.8 H (4.5-11.0) 10^3/ul RBC 3.44 L (3.5-6.1) 10^6/uL Hgb 11.2 L (14.0-18.0) g/dL Hct 31.9 L (42.0-52.0) % MCV 92.7 (80.0-105.0) fl MCH 32.6 (25.0-35.0) pg MCHC 35.1 (31.0-37.0) g/dl RDW 16.4 H (11.5-14.5) % Plt Count 224 (120.0-450.0) 10^3/uL MPV 9.6 (7.0-11.0) fl Gran % 84.8 H (50.0-68.0) % Lymph % (Auto) 7.8 L (22.0-35.0) % [place] % (Auto) 6.9 H (1.0-6.0) % Eos % (Auto) 0.3 L (1.5-5.0) % Baso % (Auto) 0.2 (0.0-3.0) % Gran # 12.57 H (1.4-6.5) Lymph # 1.2 (1.2-3.4) [place] # 1.0 H (0.1-0.6) Eos # 0.1 (0.0-0.7) Baso # 0.03 (0.0-2.0) K/mm3 PT 20.9 H (9.4-12.5) SECONDS INR 1.88 H (0.93-1.08) pCO2 (35-45) mm/Hg pO2 (80-100) mm/Hg HCO3 (21-28) mmol/L ABG pH (7.35-7.45) ABG Total CO2 (22-28) mmol.L ABG O2 Saturation (95-98) % ABG Base Excess (-2.0-3.0) mmol/L ABG Potassium (3.6-5.2) mmol/L Glucose (75-110) mg/dl Lactate (0.7-2.1) mmol/L Mechanical Rate FiO2 % Tidal Volume PEEP Sodium 148 (132-148) mmol/L Potassium 3.5 L (3.6-5.0) mmol/L Chloride 117 H (98-107) mmol/L Carbon Dioxide 21 (21-33) mmol/L Anion Gap 14 (10-20) BUN 89 H (7-21) mg/dL Creatinine 2.9 H (0.8-1.5) mg/dL Est GFR ( Amer) 26 Est GFR (Non-Af Amer) 21 Random Glucose 101 (70-110) mg/dL Calcium 7.1 L (8.4-10.5) mg/dL Total Bilirubin 1.6 H (0.2-1.3) mg/dL AST 3583 H (17-59) U/L ALT 3414 H (7-56) U/L Alkaline Phosphatase 126 D (38-126) U/L Troponin I ng/mL Total Protein 4.4 L (5.8-8.3) g/dL Albumin 2.1 L (3.0-4.8) g/dL Globulin 2.3 gm/dL Albumin/Globulin Ratio 0.9 L (1.1-1.8) Arterial Blood Potassium (3.6-5.2) mmol/L Crossmatch 05/07/17 05/07/17 05/07/17 Range/Units 22:43 18:08 18:08 WBC 14.8 H D (4.5-11.0) 10^3/ul RBC 3.22 L (3.5-6.1) 10^6/uL Hgb 10.3 L (14.0-18.0) g/dL Hct 29.9 L (42.0-52.0) % MCV 92.9 (80.0-105.0) fl MCH 32.0 (25.0-35.0) pg MCHC 34.4 (31.0-37.0) g/dl RDW 16.3 H (11.5-14.5) % Plt Count 200 (120.0-450.0) 10^3/uL MPV 9.5 (7.0-11.0) fl Gran % 86.4 H (50.0-68.0) % Lymph % (Auto) 8.2 L (22.0-35.0) % [place] % (Auto) 4.9 (1.0-6.0) % Eos % (Auto) 0.3 L (1.5-5.0) % Baso % (Auto) 0.2 (0.0-3.0) % Gran # 12.80 H (1.4-6.5) Lymph # 1.2 (1.2-3.4) [place] # 0.7 H (0.1-0.6) Eos # 0.1 (0.0-0.7) Baso # 0.03 (0.0-2.0) K/mm3 PT 21.1 H (9.4-12.5) SECONDS INR 1.91 H (0.93-1.08) pCO2 (35-45) mm/Hg pO2 (80-100) mm/Hg HCO3 (21-28) mmol/L ABG pH (7.35-7.45) ABG Total CO2 (22-28) mmol.L ABG O2 Saturation (95-98) % ABG Base Excess (-2.0-3.0) mmol/L ABG Potassium (3.6-5.2) mmol/L Glucose (75-110) mg/dl Lactate (0.7-2.1) mmol/L Mechanical Rate FiO2 % Tidal Volume PEEP Sodium 147 (132-148) mmol/L Potassium 3.3 L (3.6-5.0) mmol/L Chloride 119 H (98-107) mmol/L Carbon Dioxide 17 L (21-33) mmol/L Anion Gap 14 (10-20) BUN 81 H (7-21) mg/dL Creatinine 2.7 H (0.8-1.5) mg/dL Est GFR ( Amer) 28 Est GFR (Non-Af Amer) 23 Random Glucose 97 (70-110) mg/dL Calcium 7.0 L (8.4-10.5) mg/dL Total Bilirubin 1.3 (0.2-1.3) mg/dL AST 7145 H (17-59) U/L ALT 4394 H (7-56) U/L Alkaline Phosphatase 96 (38-126) U/L Troponin I ng/mL Total Protein 4.3 L (5.8-8.3) g/dL Albumin 2.0 L (3.0-4.8) g/dL Globulin 2.3 gm/dL Albumin/Globulin Ratio 0.9 L (1.1-1.8) Arterial Blood Potassium (3.6-5.2) mmol/L Crossmatch 05/07/17 05/07/17 05/07/17 Range/Units 18:08 11:00 11:00 WBC (4.5-11.0) 10^3/ul RBC (3.5-6.1) 10^6/uL Hgb (14.0-18.0) g/dL Hct (42.0-52.0) % MCV (80.0-105.0) fl MCH (25.0-35.0) pg MCHC (31.0-37.0) g/dl RDW (11.5-14.5) % Plt Count (120.0-450.0) 10^3/uL MPV (7.0-11.0) fl Gran % (50.0-68.0) % Lymph % (Auto) (22.0-35.0) % [place] % (Auto) (1.0-6.0) % Eos % (Auto) (1.5-5.0) % Baso % (Auto) (0.0-3.0) % Gran # (1.4-6.5) Lymph # (1.2-3.4) [place] # (0.1-0.6) Eos # (0.0-0.7) Baso # (0.0-2.0) K/mm3 PT 20.9 H 20.9 H (9.4-12.5) SECONDS INR 1.89 H 1.88 H (0.93-1.08) pCO2 (35-45) mm/Hg pO2 (80-100) mm/Hg HCO3 (21-28) mmol/L ABG pH (7.35-7.45) ABG Total CO2 (22-28) mmol.L ABG O2 Saturation (95-98) % ABG Base Excess (-2.0-3.0) mmol/L ABG Potassium (3.6-5.2) mmol/L Glucose (75-110) mg/dl Lactate (0.7-2.1) mmol/L Mechanical Rate FiO2 % Tidal Volume PEEP Sodium 147 (132-148) mmol/L Potassium 3.9 (3.6-5.0) mmol/L Chloride 118 H (98-107) mmol/L Carbon Dioxide 17 L (21-33) mmol/L Anion Gap 16 (10-20) BUN 82 H (7-21) mg/dL Creatinine 2.9 H (0.8-1.5) mg/dL Est GFR ( Amer) 26 Est GFR (Non-Af Amer) 21 Random Glucose 107 (70-110) mg/dL Calcium 7.4 L (8.4-10.5) mg/dL Total Bilirubin 1.2 (0.2-1.3) mg/dL AST 83217 H (17-59) U/L ALT 5745 H (7-56) U/L Alkaline Phosphatase 102 (38-126) U/L Troponin I ng/mL Total Protein 4.6 L (5.8-8.3) g/dL Albumin 2.1 L (3.0-4.8) g/dL Globulin 2.5 gm/dL Albumin/Globulin Ratio 0.8 L (1.1-1.8) Arterial Blood Potassium (3.6-5.2) mmol/L Crossmatch 05/07/17 05/07/17 05/07/17 Range/Units 11:00 08:06 06:30 WBC 21.2 H (4.5-11.0) 10^3/ul RBC 3.30 L (3.5-6.1) 10^6/uL Hgb 10.9 L (14.0-18.0) g/dL Hct 30.9 L (42.0-52.0) % MCV 93.6 (80.0-105.0) fl MCH 33.0 (25.0-35.0) pg MCHC 35.3 (31.0-37.0) g/dl RDW 16.3 H (11.5-14.5) % Plt Count 189 (120.0-450.0) 10^3/uL MPV 9.2 (7.0-11.0) fl Gran % 86.9 H (50.0-68.0) % Lymph % (Auto) 8.0 L (22.0-35.0) % [place] % (Auto) 4.8 (1.0-6.0) % Eos % (Auto) 0.2 L (1.5-5.0) % Baso % (Auto) 0.1 (0.0-3.0) % Gran # 18.46 H (1.4-6.5) Lymph # 1.7 (1.2-3.4) [place] # 1.0 H (0.1-0.6) Eos # 0.0 (0.0-0.7) Baso # 0.03 (0.0-2.0) K/mm3 PT (9.4-12.5) SECONDS INR (0.93-1.08) pCO2 26 L (35-45) mm/Hg pO2 86.0 (80-100) mm/Hg HCO3 14.7 L (21-28) mmol/L ABG pH 7.36 (7.35-7.45) ABG Total CO2 15.5 L (22-28) mmol.L ABG O2 Saturation 99.0 H (95-98) % ABG Base Excess -9.1 L (-2.0-3.0) mmol/L ABG Potassium 3.8 (3.6-5.2) mmol/L Glucose 118 H (75-110) mg/dl Lactate 1.7 (0.7-2.1) mmol/L Mechanical Rate 20 FiO2 35.0 % Tidal Volume 400 PEEP 5 Sodium 141.0 146 (132-148) mmol/L Potassium 4.0 (3.6-5.0) mmol/L Chloride 118.0 H 118 H (98-107) mmol/L Carbon Dioxide 16 L (21-33) mmol/L Anion Gap 16 (10-20) BUN 79 H (7-21) mg/dL Creatinine 2.8 H (0.8-1.5) mg/dL Est GFR ( Amer) 27 Est GFR (Non-Af Amer) 22 Random Glucose 116 H (70-110) mg/dL Calcium 7.4 L (8.4-10.5) mg/dL Total Bilirubin 1.3 (0.2-1.3) mg/dL AST 19307 H (17-59) U/L ALT 5970 H (7-56) U/L Alkaline Phosphatase 84 (38-126) U/L Troponin I ng/mL Total Protein 4.6 L (5.8-8.3) g/dL Albumin 2.1 L (3.0-4.8) g/dL Globulin 2.4 gm/dL Albumin/Globulin Ratio 0.9 L (1.1-1.8) Arterial Blood Potassium 3.8 (3.6-5.2) mmol/L Crossmatch 05/07/17 05/04/17 Range/Units 06:30 08:45 WBC (4.5-11.0) 10^3/ul RBC (3.5-6.1) 10^6/uL Hgb (14.0-18.0) g/dL Hct (42.0-52.0) % MCV (80.0-105.0) fl MCH (25.0-35.0) pg MCHC (31.0-37.0) g/dl RDW (11.5-14.5) % Plt Count (120.0-450.0) 10^3/uL MPV (7.0-11.0) fl Gran % (50.0-68.0) % Lymph % (Auto) (22.0-35.0) % [place] % (Auto) (1.0-6.0) % Eos % (Auto) (1.5-5.0) % Baso % (Auto) (0.0-3.0) % Gran # (1.4-6.5) Lymph # (1.2-3.4) [place] # (0.1-0.6) Eos # (0.0-0.7) Baso # (0.0-2.0) K/mm3 PT (9.4-12.5) SECONDS INR (0.93-1.08) pCO2 (35-45) mm/Hg pO2 (80-100) mm/Hg HCO3 (21-28) mmol/L ABG pH (7.35-7.45) ABG Total CO2 (22-28) mmol.L ABG O2 Saturation (95-98) % ABG Base Excess (-2.0-3.0) mmol/L ABG Potassium (3.6-5.2) mmol/L Glucose (75-110) mg/dl Lactate (0.7-2.1) mmol/L Mechanical Rate FiO2 % Tidal Volume PEEP Sodium (132-148) mmol/L Potassium (3.6-5.0) mmol/L Chloride (98-107) mmol/L Carbon Dioxide (21-33) mmol/L Anion Gap (10-20) BUN (7-21) mg/dL Creatinine (0.8-1.5) mg/dL Est GFR ( Amer) Est GFR (Non-Af Amer) Random Glucose (70-110) mg/dL Calcium (8.4-10.5) mg/dL Total Bilirubin (0.2-1.3) mg/dL AST (17-59) U/L ALT (7-56) U/L Alkaline Phosphatase (38-126) U/L Troponin I 3.25 H* ng/mL Total Protein (5.8-8.3) g/dL Albumin (3.0-4.8) g/dL Globulin gm/dL Albumin/Globulin Ratio (1.1-1.8) Arterial Blood Potassium (3.6-5.2) mmol/L Crossmatch See Detail Laboratory Results - last 24 hr 05/04/17 05/07/17 05/07/17 08:45 06:30 06:30 WBC RBC Hgb Hct MCV MCH MCHC RDW Plt Count MPV Gran % Lymph % (Auto) [place] % (Auto) Eos % (Auto) Baso % (Auto) Gran # Lymph # [place] # Eos # Baso # PT INR pCO2 pO2 HCO3 ABG pH ABG Total CO2 ABG O2 Saturation ABG Base Excess ABG Potassium Glucose Lactate Mechanical Rate FiO2 Tidal Volume PEEP Sodium 146 Potassium 4.0 Chloride 118 H Carbon Dioxide 16 L Anion Gap 16 BUN 79 H Creatinine 2.8 H Est GFR ( Amer) 27 Est GFR (Non-Af Amer) 22 Random Glucose 116 H Calcium 7.4 L Total Bilirubin 1.3 AST 98842 H ALT 5970 H Alkaline Phosphatase 84 Troponin I 3.25 H* Total Protein 4.6 L Albumin 2.1 L Globulin 2.4 Albumin/Globulin Ratio 0.9 L Arterial Blood Potassium Crossmatch See Detail 05/07/17 05/07/17 05/07/17 08:06 11:00 11:00 WBC 21.2 H RBC 3.30 L Hgb 10.9 L Hct 30.9 L MCV 93.6 MCH 33.0 MCHC 35.3 RDW 16.3 H Plt Count 189 MPV 9.2 Gran % 86.9 H Lymph % (Auto) 8.0 L [place] % (Auto) 4.8 Eos % (Auto) 0.2 L Baso % (Auto) 0.1 Gran # 18.46 H Lymph # 1.7 [place] # 1.0 H Eos # 0.0 Baso # 0.03 PT INR pCO2 26 L pO2 86.0 HCO3 14.7 L ABG pH 7.36 ABG Total CO2 15.5 L ABG O2 Saturation 99.0 H ABG Base Excess -9.1 L ABG Potassium 3.8 Glucose 118 H Lactate 1.7 Mechanical Rate 20 FiO2 35.0 Tidal Volume 400 PEEP 5 Sodium 141.0 147 Potassium 3.9 Chloride 118.0 H 118 H Carbon Dioxide 17 L Anion Gap 16 BUN 82 H Creatinine 2.9 H Est GFR ( Amer) 26 Est GFR (Non-Af Amer) 21 Random Glucose 107 Calcium 7.4 L Total Bilirubin 1.2 AST 62488 H ALT 5745 H Alkaline Phosphatase 102 Troponin I Total Protein 4.6 L Albumin 2.1 L Globulin 2.5 Albumin/Globulin Ratio 0.8 L Arterial Blood Potassium 3.8 Crossmatch 05/07/17 05/07/17 05/07/17 11:00 18:08 18:08 WBC 14.8 H D RBC 3.22 L Hgb 10.3 L Hct 29.9 L MCV 92.9 MCH 32.0 MCHC 34.4 RDW 16.3 H Plt Count 200 MPV 9.5 Gran % 86.4 H Lymph % (Auto) 8.2 L [place] % (Auto) 4.9 Eos % (Auto) 0.3 L Baso % (Auto) 0.2 Gran # 12.80 H Lymph # 1.2 [place] # 0.7 H Eos # 0.1 Baso # 0.03 PT 20.9 H 20.9 H INR 1.88 H 1.89 H pCO2 pO2 HCO3 ABG pH ABG Total CO2 ABG O2 Saturation ABG Base Excess ABG Potassium Glucose Lactate Mechanical Rate FiO2 Tidal Volume PEEP Sodium Potassium Chloride Carbon Dioxide Anion Gap BUN Creatinine Est GFR ( Amer) Est GFR (Non-Af Amer) Random Glucose Calcium Total Bilirubin AST ALT Alkaline Phosphatase Troponin I Total Protein Albumin Globulin Albumin/Globulin Ratio Arterial Blood Potassium Crossmatch 05/07/17 05/07/17 05/08/17 18:08 22:43 06:10 WBC RBC Hgb Hct MCV MCH MCHC RDW Plt Count MPV Gran % Lymph % (Auto) [place] % (Auto) Eos % (Auto) Baso % (Auto) Gran # Lymph # [place] # Eos # Baso # PT 21.1 H 20.9 H INR 1.91 H 1.88 H pCO2 pO2 HCO3 ABG pH ABG Total CO2 ABG O2 Saturation ABG Base Excess ABG Potassium Glucose Lactate Mechanical Rate FiO2 Tidal Volume PEEP Sodium 147 Potassium 3.3 L Chloride 119 H Carbon Dioxide 17 L Anion Gap 14 BUN 81 H Creatinine 2.7 H Est GFR ( Amer) 28 Est GFR (Non-Af Amer) 23 Random Glucose 97 Calcium 7.0 L Total Bilirubin 1.3 AST 7145 H ALT 4394 H Alkaline Phosphatase 96 Troponin I Total Protein 4.3 L Albumin 2.0 L Globulin 2.3 Albumin/Globulin Ratio 0.9 L Arterial Blood Potassium Crossmatch 05/08/17 05/08/17 06:10 06:10 WBC 14.8 H RBC 3.44 L Hgb 11.2 L Hct 31.9 L MCV 92.7 MCH 32.6 MCHC 35.1 RDW 16.4 H Plt Count 224 MPV 9.6 Gran % 84.8 H Lymph % (Auto) 7.8 L [place] % (Auto) 6.9 H Eos % (Auto) 0.3 L Baso % (Auto) 0.2 Gran # 12.57 H Lymph # 1.2 [place] # 1.0 H Eos # 0.1 Baso # 0.03 PT INR pCO2 pO2 HCO3 ABG pH ABG Total CO2 ABG O2 Saturation ABG Base Excess ABG Potassium Glucose Lactate Mechanical Rate FiO2 Tidal Volume PEEP Sodium 148 Potassium 3.5 L Chloride 117 H Carbon Dioxide 21 Anion Gap 14 BUN 89 H Creatinine 2.9 H Est GFR ( Amer) 26 Est GFR (Non-Af Amer) 21 Random Glucose 101 Calcium 7.1 L Total Bilirubin 1.6 H AST 3583 H ALT 3414 H Alkaline Phosphatase 126 D Troponin I Total Protein 4.4 L Albumin 2.1 L Globulin 2.3 Albumin/Globulin Ratio 0.9 L Arterial Blood Potassium Crossmatch Review of Systems - Review of Systems Review of Systems: ROS unable to be obtained due to patient being obtunded Critical Care Progress Note - Nutrition Nutrition: Nutrition Category Date Time Status NPO Diet [DIET] Diets 05/04/17 Breakfast Ordered Assessment/Plan - Assessment and Plan (Free Text) Assessment: 77 year old male with PMH of COPD, HTN, hyperglycemia, recent hx of falls, and suspected upper GI bleed who was admitted to ICU with NSTEMI, hyponatremia, and hypokalemia on 10/13. Patient was stabalized and transferred to the floor. While there he had a drop in his Hgb and became tachycardic. CXR showed free air under diaphragm and CT abdomen confirmed free air. Patient went for ex lap and repair of gastric perforation in greater curvature of stomach POD#4. Patient has shown elevation in LFTs and poor renal function likely secondary to septic shock with AG metabolic acidosis in the setting of MODS. Patient with brain MRI done yesterday showing extensive infarcts with in the cerebral and cerebellar hemispheres as well as the frontal parietal and occipital lobes. Prognosis is poor at this time. Plan: Neuro: Stroke - evolving - Yesterday Head CT showed foci of hypodensity at posterior parietal and occipital lobes bilateral larger on left suspicious for acute infarct - MRI Brain: extensive infarcts are seen in both cerebral and cerebellar hemispheres. The infarcts involve the frontal parietal and occipital lobes in a symmetrical pattern. The infarcts of the cerebellar hemispheres are also in a symmetrical pattern. Findings consistent with hypoxic or hypotensive event. - Patient noted not to be candidate for ASA/antiplatelet agents contraindicated in the patient despite brain MRI findings, due to recent GI hemorrhage, dark melenotic stool and recent gastric perforation s/p repair with GS - Maintain normothermia and euvolemia Pulm: Intubated secondary to acute respiratory failure post op - will continue today secondary to poor clinical progression over past 24 hours - Continue PRVC and appropriate vent management with goal PaO2 >80, SaO2 88-94% Chest CT: notable for multiple fractured ribs with hx of multiple falls CT chest showing no lung mass, vertebral fracture of T8, multiple left-sided rib fractures, moderate size left pleural effusion CXR today showing bibasilar infiltrates, ID following for potential infectious source Hx of COPD CVS: Atrial Fib with RVR - Tachycardia this AM with no discernable p wave, EKG showing afib with RVR vs. Atrial flutter - Amiodarone held at this time in light of acute liver failure - Patient exhibiting ventricular arrthymias at this time, cardizem gtt placed and on hold at this time will continue to monitor for initiation of therapy - Repeat echocardiogram ordered for evaluation of atrial fibrillation and possible thrombus formation - Will transition patient off of cardizem NSTEMI - Troponin elevation on admission, trending down now - ECHO (05/01) EF of 55%, mild concentric LVH, mod MR, mild TR, no pericardial effusion - Cardiology consulted(Dr. Nick) and following, jarred LHC will be placed on hold - New CVA noted on Brain MRI holding AC due to GI bleeding and stroke findings HTN -HTN medications prn, stable at this time cont to monitor - Off pressors for now - Continue to monitor GI: Acute Liver Failure - likely secondary to ischemic hepatitis in the setting of poor perfusion vs. possible thrombus obstruction - Abdominal CT: showing mildly dilated large bowel loops multiple air fluid levels, without obstruction, persistent pleural effusions and bilateral lower lobe Perforation of gastric ulcer s/p ex lap with gastric wedge resection POD#4 - General surgery(Dr. Mccrary) consulted and following - H/H stable - GI consulted(Dr. Lemus) recs - Continue bowel rest with continuous suction of gastric contents Transaminitis - worsening - diff dx: ischemic hepatitis vs. drug induced injury - LFT trending downward at this time, still elevated - Hepatitis panel negative - Continue IVF and monitor Protonix for GI ppx Renal: Likely Renal Failure with elevated AG metabolic acidosis - Cr continues to trend upward, continue fluids, UOP poor, will monitor - Avoid nephrotoxic medications - Nephrology(Dr. Greenwood) following appreciate recs - Monitor electrolytes and replace as necessary Heme: H/H stable at this time s/p 2 units transfused - Continued dark melanotic stools in past 24 hours Plan to transfuse if Hgb below <7 - INR 2.11, continue to monitor coags DVT ppx with Heparin SC ID: Septic shock Fungemia -Blood culture growing yeast, awaiting final read - Fungemia 100mg IV started - De-line patient, pull out central line, replace villela catheter - Draw blood cultures in 24 hours - Continue Meropenem ID following (Dr. Rosario)(Dr. Mayer) Case and plan discussed with attending - Date & Time Date: 05/08/17 Time: 12:03 <Miguel HERNANDEZ,Elisabet H - Last Filed: 05/08/17 15:24> CCU Objective - Vital Signs / Intake & Output Intake and Output (Last 8hrs): Intake & Output 05/08/17 05/08/17 05/08/17 06:59 14:59 22:59 Intake Total 1900 Output Total 60 Balance 1840 Weight 236 lb 0.3 oz Intake: IV 1900 Right External Jugular 1800 Output: Drainage 60 Right Abdomen 10 Right Nare 50 - Medications Active Medications: Active Medications Generic Name Dose Route Start Last Admin Trade Name Freq PRN Reason Stop Dose Admin Albuterol/Ipratropium 3 ml 05/06/17 14:00 05/08/17 13:39 Duoneb 3 Mg/0.5 Mg (3 Ml) Ud IH 3 ml [id number] SILVIA Administration Amlodipine Besylate 10 mg 05/01/17 12:45 05/03/17 10:25 Norvasc PO Not Given DAILY SILVIA Chlorhexidine Gluconate 15 ml 05/05/17 11:00 05/07/17 17:36 Peridex PO 15 ml BID SILVIA Administration Hydralazine HCl 10 mg 05/01/17 02:36 05/04/17 17:42 Apresoline IVP 10 mg Q6 PRN Administration SBP> 160 Meropenem 1g/NS 100mL IVPB 1 gm in 100 mls @ 100 mls/hr 05/05/17 10:15 10:39 Meropenem 1g/Ns 100ml Ivpb IVPB 05/13/17 10:16 100 mls/hr Q12 SILVIA Administration Protocol Amiodarone HCl/Dextrose 360 mg in 200 mls @ 33.333 mls/hr 05/06/17 10:30 16:30 Nexterone 360 Mg In D5w 200 Ml (Premix) IV Not Given .Q6H SILVIA Protocol 1 MG/MIN Fentanyl Citrate 1,000 mcg in 100 mls @ 5 mls/hr 05/06/17 19:44 Fentanyl Citrate/Sodium Chloride 1 Mg/100 Ml IV .Q20H PRN TITRATE PER MD ORDER Protocol 50 MCG/HR NOREPINEPHRINE BIT/0.9 % NACL 4 mg in 250 mls @ 15 mls/hr 05/07/17 01:04 09:00 Levophed 4 Mg/ 250 Ml Ns Premixed IV 0 mcg/min .[id number] PRN 0 mls/hr TITRATE PER MD ORDER Titration Protocol 4 MCG/MIN Sodium Chloride 1,000 mls @ 100 mls/hr 05/07/17 06:00 05/07/17 12:13 Sodium Chloride 0.9% IV Not Given .Q10H SILVIA Sodium Bicarbonate 100 meq/ 1,100 mls @ 150 mls/hr 05/07/17 07:45 05/08/17 11 :00 Sodium Chloride IV 150 mls/hr .[id number] SILVIA Administration Dexmedetomidine HCl 400 mcg in 100 mls @ 4.264 mls/hr 05/07/17 11:22 05:25 Precedex 4 Mcg/Ml (100 Ml) IV 0.2 mcg/kg/hr .[id number] PRN 4.264 mls/hr Sedation Administration Protocol 0.2 MCG/KG/HR diltiaZEM IVPB 100mg in NS 100 mls @ 5 mls/hr 05/08/17 08:22 05/08/17 10:37 Cardizem 100mg In Ns IV 5 mg/hr .Q20H PRN 5 mls/hr TITRATE PER MD ORDER Administration Protocol 5 MG/HR Micafungin Sodium 100 mg/ 100 mls @ 100 mls/hr 05/08/17 10:00 05/08/17 10:45 Sodium Chloride IV 100 mls/hr DAILY SILVIA Administration Protocol Metoprolol Tartrate 5 mg 05/06/17 10:00 05/06/17 17:34 Lopressor IVP Not Given Q6H SILVIA Midazolam HCl 4 mg 05/04/17 18:44 05/06/17 04:40 Versed Inj IVP 4 mg Q4H PRN Administration Agitation Morphine Sulfate 2 mg 05/06/17 12:35 Morphine IVP Q3H PRN Pain, severe (8-10) Nitroglycerin 1 ea 05/02/17 00:00 05/08/17 05:05 Nitro-Bid 2% Oint TOP Not Given 0000,0600,1200,1800 [facility] Pantoprazole Sodium 40 mg 05/06/17 10:00 05/08/17 10:57 Protonix Inj IVP 40 mg Q12 SILVIA Administration Verapamil HCl 2.5 mg 05/06/17 14:00 Verapamil Inj IVP Q6H PRN for HEAT rate >130 - Patient Studies Lab Studies: Microbiology Studies 05/07/17 11:45 Blood Culture - Preliminary Blood NO GROWTH AFTER 24 HOURS 05/07/17 11:30 Blood Culture - Preliminary Blood NO GROWTH AFTER 24 HOURS 05/06/17 10:50 Blood Culture - Preliminary Blood-Venous Yeast Species Gram Stain - Final 05/06/17 21:00 Urine Culture - Final Urine,[place] No Growth (<1,000 CFU/ML) 05/04/17 19:30 Blood Culture - Preliminary Blood NO GROWTH AFTER 3 DAYS 05/04/17 19:00 Blood Culture - Preliminary Blood NO GROWTH AFTER 3 DAYS Lab Studies 05/08/17 05/08/17 05/08/17 Range/Units 07:22 06:10 06:10 WBC 14.8 H (4.5-11.0) 10^3/ul RBC 3.44 L (3.5-6.1) 10^6/uL Hgb 11.2 L (14.0-18.0) g/dL Hct 31.9 L (42.0-52.0) % MCV 92.7 (80.0-105.0) fl MCH 32.6 (25.0-35.0) pg MCHC 35.1 (31.0-37.0) g/dl RDW 16.4 H (11.5-14.5) % Plt Count 224 (120.0-450.0) 10^3/uL MPV 9.6 (7.0-11.0) fl Gran % 84.8 H (50.0-68.0) % Lymph % (Auto) 7.8 L (22.0-35.0) % [place] % (Auto) 6.9 H (1.0-6.0) % Eos % (Auto) 0.3 L (1.5-5.0) % Baso % (Auto) 0.2 (0.0-3.0) % Gran # 12.57 H (1.4-6.5) Lymph # 1.2 (1.2-3.4) [place] # 1.0 H (0.1-0.6) Eos # 0.1 (0.0-0.7) Baso # 0.03 (0.0-2.0) K/mm3 PT (9.4-12.5) SECONDS INR (0.93-1.08) Sodium 148 (132-148) mmol/L Potassium 3.5 L (3.6-5.0) mmol/L Chloride 117 H (98-107) mmol/L Carbon Dioxide 21 (21-33) mmol/L Anion Gap 14 (10-20) BUN 89 H (7-21) mg/dL Creatinine 2.9 H (0.8-1.5) mg/dL Est GFR ( Amer) 26 Est GFR (Non-Af Amer) 21 Random Glucose 101 (70-110) mg/dL Calcium 7.1 L (8.4-10.5) mg/dL Phosphorus 4.9 H (2.5-4.5) mg/dL Magnesium 2.1 (1.7-2.2) mg/dL Total Bilirubin 1.6 H (0.2-1.3) mg/dL AST 3583 H (17-59) U/L ALT 3414 H (7-56) U/L Alkaline Phosphatase 126 D (38-126) U/L Total Protein 4.4 L (5.8-8.3) g/dL Albumin 2.1 L (3.0-4.8) g/dL Globulin 2.3 gm/dL Albumin/Globulin Ratio 0.9 L (1.1-1.8) 05/08/17 05/07/17 05/07/17 Range/Units 06:10 22:43 18:08 WBC (4.5-11.0) 10^3/ul RBC (3.5-6.1) 10^6/uL Hgb (14.0-18.0) g/dL Hct (42.0-52.0) % MCV (80.0-105.0) fl MCH (25.0-35.0) pg MCHC (31.0-37.0) g/dl RDW (11.5-14.5) % Plt Count (120.0-450.0) 10^3/uL MPV (7.0-11.0) fl Gran % (50.0-68.0) % Lymph % (Auto) (22.0-35.0) % [place] % (Auto) (1.0-6.0) % Eos % (Auto) (1.5-5.0) % Baso % (Auto) (0.0-3.0) % Gran # (1.4-6.5) Lymph # (1.2-3.4) [place] # (0.1-0.6) Eos # (0.0-0.7) Baso # (0.0-2.0) K/mm3 PT 20.9 H 21.1 H (9.4-12.5) SECONDS INR 1.88 H 1.91 H (0.93-1.08) Sodium 147 (132-148) mmol/L Potassium 3.3 L (3.6-5.0) mmol/L Chloride 119 H (98-107) mmol/L Carbon Dioxide 17 L (21-33) mmol/L Anion Gap 14 (10-20) BUN 81 H (7-21) mg/dL Creatinine 2.7 H (0.8-1.5) mg/dL Est GFR ( Amer) 28 Est GFR (Non-Af Amer) 23 Random Glucose 97 (70-110) mg/dL Calcium 7.0 L (8.4-10.5) mg/dL Phosphorus (2.5-4.5) mg/dL Magnesium (1.7-2.2) mg/dL Total Bilirubin 1.3 (0.2-1.3) mg/dL AST 7145 H (17-59) U/L ALT 4394 H (7-56) U/L Alkaline Phosphatase 96 (38-126) U/L Total Protein 4.3 L (5.8-8.3) g/dL Albumin 2.0 L (3.0-4.8) g/dL Globulin 2.3 gm/dL Albumin/Globulin Ratio 0.9 L (1.1-1.8) 05/07/17 05/07/17 Range/Units 18:08 18:08 WBC 14.8 H D (4.5-11.0) 10^3/ul RBC 3.22 L (3.5-6.1) 10^6/uL Hgb 10.3 L (14.0-18.0) g/dL Hct 29.9 L (42.0-52.0) % MCV 92.9 (80.0-105.0) fl MCH 32.0 (25.0-35.0) pg MCHC 34.4 (31.0-37.0) g/dl RDW 16.3 H (11.5-14.5) % Plt Count 200 (120.0-450.0) 10^3/uL MPV 9.5 (7.0-11.0) fl Gran % 86.4 H (50.0-68.0) % Lymph % (Auto) 8.2 L (22.0-35.0) % [place] % (Auto) 4.9 (1.0-6.0) % Eos % (Auto) 0.3 L (1.5-5.0) % Baso % (Auto) 0.2 (0.0-3.0) % Gran # 12.80 H (1.4-6.5) Lymph # 1.2 (1.2-3.4) [place] # 0.7 H (0.1-0.6) Eos # 0.1 (0.0-0.7) Baso # 0.03 (0.0-2.0) K/mm3 PT 20.9 H (9.4-12.5) SECONDS INR 1.89 H (0.93-1.08) Sodium (132-148) mmol/L Potassium (3.6-5.0) mmol/L Chloride (98-107) mmol/L Carbon Dioxide (21-33) mmol/L Anion Gap (10-20) BUN (7-21) mg/dL Creatinine (0.8-1.5) mg/dL Est GFR ( Amer) Est GFR (Non-Af Amer) Random Glucose (70-110) mg/dL Calcium (8.4-10.5) mg/dL Phosphorus (2.5-4.5) mg/dL Magnesium (1.7-2.2) mg/dL Total Bilirubin (0.2-1.3) mg/dL AST (17-59) U/L ALT (7-56) U/L Alkaline Phosphatase (38-126) U/L Total Protein (5.8-8.3) g/dL Albumin (3.0-4.8) g/dL Globulin gm/dL Albumin/Globulin Ratio (1.1-1.8) Laboratory Results - last 24 hr 05/07/17 05/07/17 05/07/17 18:08 18:08 18:08 WBC 14.8 H D RBC 3.22 L Hgb 10.3 L Hct 29.9 L MCV 92.9 MCH 32.0 MCHC 34.4 RDW 16.3 H Plt Count 200 MPV 9.5 Gran % 86.4 H Lymph % (Auto) 8.2 L [place] % (Auto) 4.9 Eos % (Auto) 0.3 L Baso % (Auto) 0.2 Gran # 12.80 H Lymph # 1.2 [place] # 0.7 H Eos # 0.1 Baso # 0.03 PT 20.9 H INR 1.89 H Sodium 147 Potassium 3.3 L Chloride 119 H Carbon Dioxide 17 L Anion Gap 14 BUN 81 H Creatinine 2.7 H Est GFR ( Amer) 28 Est GFR (Non-Af Amer) 23 Random Glucose 97 Calcium 7.0 L Phosphorus Magnesium Total Bilirubin 1.3 AST 7145 H ALT 4394 H Alkaline Phosphatase 96 Total Protein 4.3 L Albumin 2.0 L Globulin 2.3 Albumin/Globulin Ratio 0.9 L 05/07/17 05/08/17 05/08/17 22:43 06:10 06:10 WBC 14.8 H RBC 3.44 L Hgb 11.2 L Hct 31.9 L MCV 92.7 MCH 32.6 MCHC 35.1 RDW 16.4 H Plt Count 224 MPV 9.6 Gran % 84.8 H Lymph % (Auto) 7.8 L [place] % (Auto) 6.9 H Eos % (Auto) 0.3 L Baso % (Auto) 0.2 Gran # 12.57 H Lymph # 1.2 [place] # 1.0 H Eos # 0.1 Baso # 0.03 PT 21.1 H 20.9 H INR 1.91 H 1.88 H Sodium Potassium Chloride Carbon Dioxide Anion Gap BUN Creatinine Est GFR ( Amer) Est GFR (Non-Af Amer) Random Glucose Calcium Phosphorus Magnesium Total Bilirubin AST ALT Alkaline Phosphatase Total Protein Albumin Globulin Albumin/Globulin Ratio 05/08/17 05/08/17 06:10 07:22 WBC RBC Hgb Hct MCV MCH MCHC RDW Plt Count MPV Gran % Lymph % (Auto) [place] % (Auto) Eos % (Auto) Baso % (Auto) Gran # Lymph # [place] # Eos # Baso # PT INR Sodium 148 Potassium 3.5 L Chloride 117 H Carbon Dioxide 21 Anion Gap 14 BUN 89 H Creatinine 2.9 H Est GFR ( Amer) 26 Est GFR (Non-Af Amer) 21 Random Glucose 101 Calcium 7.1 L Phosphorus 4.9 H Magnesium 2.1 Total Bilirubin 1.6 H AST 3583 H ALT 3414 H Alkaline Phosphatase 126 D Total Protein 4.4 L Albumin 2.1 L Globulin 2.3 Albumin/Globulin Ratio 0.9 L Critical Care Progress Note - Nutrition Nutrition: Nutrition Category Date Time Status NPO Diet [DIET] Diets 05/04/17 Breakfast Ordered Attending/Attestation - Attestation I have personally seen and examined this patient.: Yes I have fully participated in the care of the patient.: Yes I have reviewed all pertinent clinical information: Yes Notes (Text): 05/08/17 15:19 77 y/o M w/ Septic shock likely from bacteremia S/p perforated gastric ulcer and repair. S/P large multifocal CVA Mental status poor - not following commands. Minimal neurological movement. On empiric abx and will add anto fungal medications and remove all central lines. May place peripheral lines and or PICC if needed. AC/VC unable to extubate due to mental status. Minimal vent requirements. NSTEMI w/o intervention planned. GI bleed w/ HGB > 7 currently. Acute liver failure w/ mild improvement w/ LFT's. Kaur likely from ATN. Poor urine output. May need HD in the near future. DVT P on hold. On SCD CC time 55 min
[2017-05-08 08:35] LABS: MAGNESIUM 2.1 mg/dL (1.7-2.2); PHOSPHOROUS 4.9 mg/dL (2.5-4.5)
--- NOTE | 2017-05-08 09:13 | PN ---
DATE: 05/08/2017 SUBJECTIVE: The patient is seen in the ICU 129, bed 4. The patient's status is unchanged and had an uneventful night and remains on a ventilator. PHYSICAL EXAMINATION: VITAL SIGNS: Temperature is 99, blood pressure is 140/70, respiratory rate on the vent, and heart rate of 111. LABORATORY DATA: White count of 14,800, hemoglobin of 11, and platelets of 224. Chemistries reveals a BUN of 81 and creatinine of 2.7. Procalcitonin is 2.34 and urinalysis is noted. Stool culture is positive. Hepatitis profile is negative. Microbiology, no growth in the blood cultures. Urine culture is mixed organisms. REVIEW OF ORDERS: Reveals the patient to be on meropenem. The patient had an MRI of the brain yesterday was read by Dr. Logan Diana, extensive infarcts are seen in both cerebral and cerebellar hemispheres. Dr. Lyndon Mccrary's progress note and operative note is reviewed. The patient had a laparotomy and partial gastric resection and resection of an abscess the colon. ASSESSMENT AND PLAN: He is a 77-year-old male with systemic inflammatory response syndrome, septic shock and cardiogenic shock with respiratory failure, ventilatory dependent respiratory failure, renal failure, acute shock liver, perforated gastric ulcer status post exploratory laparotomy and gastric wedge and resection and drainage of the colonic abscess with postprocedure day number 4 with bilateral lower lobe aspiration pneumonia, now with new MRI findings of extensive infarction, both cerebral and cerebellar hemispheres on meropenem. Overall prognosis is quite poor. We will continue present course. Dinesh Rosario MD
--- NOTE | 2017-05-08 09:38 | CP.PCM.PN ---
Subjective - Date & Time of Evaluation Date of Evaluation: 05/08/17 Time of Evaluation: 09:34 - Subjective Subjective: Surgery Pt s&e. Intubated. doesn't follow commands. MRI shows stroke. Drain in place. Rectal tube [place] in place Objective - Vital Signs/Intake and Output Vital Signs (last 24 hours): Temp Pulse Resp BP Pulse Ox 99.1 F 91 H 23 146/72 94 L 05/08/17 06:30 05/08/17 06:30 05/08/17 07:34 05/08/17 06:00 05/08/17 07:34 Intake and Output: 05/08/17 05/08/17 06:59 18:59 Intake Total 1900 Output Total 60 Balance 1840 - Medications Medications: Current Medications Albuterol/Ipratropium (Duoneb 3 Mg/0.5 Mg (3 Ml) Ud) 3 ml IH [id number] SILVIA Last Admin: 05/08/17 07:27 Dose: 3 ml Amlodipine Besylate (Norvasc) 10 mg PO DAILY SILVIA Last Admin: 05/03/17 10:25 Dose: Not Given Chlorhexidine Gluconate (Peridex) 15 ml PO BID SILVIA Last Admin: 05/07/17 17:36 Dose: 15 ml Hydralazine HCl (Apresoline) 10 mg IVP Q6 PRN PRN Reason: SBP> 160 Last Admin: 05/04/17 17:42 Dose: 10 mg Meropenem 1g/NS 100mL IVPB (Meropenem 1g/Ns 100ml Ivpb) 1 gm in 100 mls @ 100 mls/hr IVPB Q12 SILVIA PRN Reason: Protocol Stop: 05/13/17 10:16 Last Admin: 05/07/17 21:57 Dose: 100 mls/hr Amiodarone HCl/Dextrose (Nexterone 360 Mg In D5w 200 Ml (Premix)) 360 mg in 200 mls @ 33.333 mls/hr IV .Q6H SILVIA; 1 MG/MIN PRN Reason: Protocol Last Admin: 05/06/17 16:30 Dose: Not Given Fentanyl Citrate (Fentanyl Citrate/Sodium Chloride 1 Mg/100 Ml) 1,000 mcg in 100 mls @ 5 mls/hr IV .Q20H PRN; Protocol; 50 MCG/HR PRN Reason: TITRATE PER MD ORDER NOREPINEPHRINE BIT/0.9 % NACL (Levophed 4 Mg/ 250 Ml Ns Premixed) 4 mg in 250 mls @ 15 mls/hr IV .[id number] PRN; Protocol; 4 MCG/MIN PRN Reason: TITRATE PER MD ORDER Last Titration: 05/07/17 09:00 Dose: 0 mcg/min, 0 mls/hr Sodium Chloride (Sodium Chloride 0.9%) 1,000 mls @ 100 mls/hr IV .Q10H SILVIA Last Admin: 05/07/17 12:13 Dose: Not Given Sodium Bicarbonate 100 meq/ (Sodium Chloride) 1,100 mls @ 150 mls/hr IV .Q7H20M SILVIA Last Admin: 05/07/17 18:33 Dose: 150 mls/hr Dexmedetomidine HCl (Precedex 4 Mcg/Ml (100 Ml)) 400 mcg in 100 mls @ 4.264 mls /hr IV .[id number] PRN; Protocol; 0.2 MCG/KG/HR PRN Reason: Sedation Last Admin: 05/08/17 05:25 Dose: 0.2 mcg/kg/hr, 4.264 mls/hr diltiaZEM IVPB 100mg in NS (Cardizem 100mg In Ns) 100 mls @ 5 mls/hr IV .Q20H PRN; Protocol; 5 MG/HR PRN Reason: TITRATE PER MD ORDER Potassium Chloride (Potassium Chloride 20 Meq/100 Ml) 20 meq in 100 mls @ 50 mls/hr IVPB ONCE ONE Stop: 05/08/17 10:53 Metoprolol Tartrate (Lopressor) 5 mg IVP Q6H [facility] Last Admin: 05/06/17 17:34 Dose: Not Given Midazolam HCl (Versed Inj) 4 mg IVP Q4H PRN PRN Reason: Agitation Last Admin: 05/06/17 04:40 Dose: 4 mg Morphine Sulfate (Morphine) 2 mg IVP Q3H PRN PRN Reason: Pain, severe (8-10) Nitroglycerin (Nitro-Bid 2% Oint) 1 ea TOP 0000,0600,1200,1800 [facility] Last Admin: 05/08/17 05:05 Dose: Not Given Pantoprazole Sodium (Protonix Inj) 40 mg IVP Q12 [facility] Last Admin: 05/07/17 21:57 Dose: 40 mg Verapamil HCl (Verapamil Inj) 2.5 mg IVP Q6H PRN PRN Reason: for HEAT rate >130 - Labs Labs: 05/08/17 06:10 05/08/17 06:10 PT 20.9 SECONDS (9.4-12.5) H 05/08/17 06:10 INR 1.88 (0.93-1.08) H 05/08/17 06:10 APTT 32.9 Seconds (23.7-30.8) H 05/06/17 04:45 - Constitutional Appears: In Acute Distress, Unkempt, Chronically Ill - Head Exam Head Exam: ATRAUMATIC, NORMAL INSPECTION, NORMOCEPHALIC - ENT Exam ENT Exam: Mucous Membranes Moist - Respiratory Exam Respiratory Exam: Respiratory Distress. absent: NORMAL BREATHING PATTERN - Cardiovascular Exam Cardiovascular Exam: REGULAR RHYTHM, +S1, +S2. absent: Murmur - GI/Abdominal Exam GI & Abdominal Exam: Soft, Normal Bowel Sounds. absent: Distended, Firm, Tenderness Additional comments: Drain SS fluids. Incision C/D/I - Rectal Exam Additional comments: REctal tube: stool - Exam Additional comments: [place] yellow clear fluids - Extremities Exam Extremities Exam: Normal Inspection - Neurological Exam Neurological Exam: absent: Alert, Awake, Oriented x3 - Skin Skin Exam: Dry, Intact, Normal Color, Warm Assessment and Plan - Assessment and Plan (Free Text) Assessment: 77 M s/p Exploratory laparotomy and Gastric wedge resection for perforated gastric ulcer/pneumoperitoneum POD#4. Afib RVR, stroke. Hypoperfusion multiorgan failure -Management as per ICU -GI on board -Will ARIAN Macdonald
[2017-05-08] MEDS: diltiaZEM IVPB 100mg in NS 100 ML IV PRN (10:37)
[2017-05-08] MEDS: Meropenem 1g/NS 100mL IVPB 1 GM/100 ML PIGGYBACK IVPB SCH ×2 (10:39→21:51)
[2017-05-08] MEDS: Micafungin 100 MG in Sodium Chloride 0.9% 100 ML IV SCH (10:45)
--- NOTE | 2017-05-08 11:00 | CP.PCM.PN ---
<Ana Freeman - Last Filed: 05/08/17 10:59> Subjective - Date & Time of Evaluation Date of Evaluation: 05/08/17 Time of Evaluation: 07:30 - Subjective Subjective: Seen and examined at the bedside earlier this morning, the chart was reviewed. Patient remains intubated and sedated. Patient had MRI of the brain yesterday which showed extensive cerebral and cerebellar infarcts, consistent with hypoxic or hypotensive event. Patient has flexiseal draining liquid stool that appears to be dark, stool for guaiac done was positive for blood. Objective - Vital Signs/Intake and Output Vital Signs (last 24 hours): Temp Pulse Resp BP Pulse Ox 99.1 F 91 H 23 146/72 94 L 05/08/17 06:30 05/08/17 06:30 05/08/17 07:34 05/08/17 06:00 05/08/17 07:34 Intake and Output: 05/08/17 05/08/17 06:59 18:59 Intake Total 1900 Output Total 60 Balance 1840 - Medications Medications: Current Medications Albuterol/Ipratropium (Duoneb 3 Mg/0.5 Mg (3 Ml) Ud) 3 ml IH [id number] SILVIA Last Admin: 05/08/17 07:27 Dose: 3 ml Amlodipine Besylate (Norvasc) 10 mg PO DAILY SILVIA Last Admin: 05/03/17 10:25 Dose: Not Given Chlorhexidine Gluconate (Peridex) 15 ml PO BID SILVIA Last Admin: 05/07/17 17:36 Dose: 15 ml Hydralazine HCl (Apresoline) 10 mg IVP Q6 PRN PRN Reason: SBP> 160 Last Admin: 05/04/17 17:42 Dose: 10 mg Meropenem 1g/NS 100mL IVPB (Meropenem 1g/Ns 100ml Ivpb) 1 gm in 100 mls @ 100 mls/hr IVPB Q12 [facility]IL[facility]IA PRN Reason: Protocol Stop: 05/13/17 10:16 Last Admin: 05/07/17 21:57 Dose: 100 mls/hr Amiodarone HCl/Dextrose (Nexterone 360 Mg In D5w 200 Ml (Premix)) 360 mg in 200 mls @ 33.333 mls/hr IV .Q6H SILVIA; 1 MG/MIN PRN Reason: Protocol Last Admin: 05/06/17 16:30 Dose: Not Given Fentanyl Citrate (Fentanyl Citrate/Sodium Chloride 1 Mg/100 Ml) 1,000 mcg in 100 mls @ 5 mls/hr IV .Q20H PRN; Protocol; 50 MCG/HR PRN Reason: TITRATE PER MD ORDER NOREPINEPHRINE BIT/0.9 % NACL (Levophed 4 Mg/ 250 Ml Ns Premixed) 4 mg in 250 mls @ 15 mls/hr IV .[id number] PRN; Protocol; 4 MCG/MIN PRN Reason: TITRATE PER MD ORDER Last Titration: 05/07/17 09:00 Dose: 0 mcg/min, 0 mls/hr Sodium Chloride (Sodium Chloride 0.9%) 1,000 mls @ 100 mls/hr IV .Q10H SIL[facility]IA Last Admin: 05/07/17 12:13 Dose: Not Given Sodium Bicarbonate 100 meq/ (Sodium Chloride) 1,100 mls @ 150 mls/hr IV .Q7H20M SIL[facility]IA Last Admin: 05/07/17 18:33 Dose: 150 mls/hr Dexmedetomidine HCl (Precedex 4 Mcg/Ml (100 Ml)) 400 mcg in 100 mls @ 4.264 mls /hr IV .[id number] PRN; Protocol; 0.2 MCG/KG/HR PRN Reason: Sedation Last Admin: 05/08/17 05:25 Dose: 0.2 mcg/kg/hr, 4.264 mls/hr diltiaZEM IVPB 100mg in NS (Cardizem 100mg In Ns) 100 mls @ 5 mls/hr IV .Q20H PRN; Protocol; 5 MG/HR PRN Reason: TITRATE PER MD ORDER Potassium Chloride (Potassium Chloride 20 Meq/100 Ml) 20 meq in 100 mls @ 50 mls/hr IVPB ONCE ONE Stop: 05/08/17 10:53 Micafungin Sodium 100 mg/ (Sodium Chloride) 100 mls @ 100 mls/hr IV DAILY SILVIA PRN Reason: Protocol Metoprolol Tartrate (Lopressor) 5 mg IVP Q6H SIL[facility]IA Last Admin: 05/06/17 17:34 Dose: Not Given Midazolam HCl (Versed Inj) 4 mg IVP Q4H PRN PRN Reason: Agitation Last Admin: 05/06/17 04:40 Dose: 4 mg Morphine Sulfate (Morphine) 2 mg IVP Q3H PRN PRN Reason: Pain, severe (8-10) Nitroglycerin (Nitro-Bid 2% Oint) 1 ea TOP 0000,0600,1200,1800 [facility] Last Admin: 05/08/17 05:05 Dose: Not Given Pantoprazole Sodium (Protonix Inj) 40 mg IVP Q12 [facility] Last Admin: 05/07/17 21:57 Dose: 40 mg Verapamil HCl (Verapamil Inj) 2.5 mg IVP Q6H PRN PRN Reason: for HEAT rate >130 - Labs Labs: 05/08/17 06:10 05/08/17 06:10 PT 20.9 SECONDS (9.4-12.5) H 05/08/17 06:10 INR 1.88 (0.93-1.08) H 05/08/17 06:10 APTT 32.9 Seconds (23.7-30.8) H 05/06/17 04:45 - Constitutional Appears: No Acute Distress (sedated and intubated) - Eye Exam Eye Exam: absent: Scleral icterus - ENT Exam Additional comments: intubated, NG tube present to suction, bile colored secretion - Neck Exam Neck Exam: Normal Inspection - Respiratory Exam Respiratory Exam: NORMAL BREATHING PATTERN. absent: Respiratory Distress - Cardiovascular Exam Cardiovascular Exam: +S1, +S2 - GI/Abdominal Exam GI & Abdominal Exam: Soft, Normal Bowel Sounds Additional comments: surgical site intact, (+) MAX drain , serosanguenous - Extremities Exam Extremities Exam: Normal Capillary Refill - Neurological Exam Neurological Exam: Altered - Skin Skin Exam: Dry, Warm Assessment and Plan - Assessment and Plan (Free Text) Assessment: Assessment: Respiratory failure, intubated, failed postop extubation GI bleed, found to have perforated gastric ulcer,s/p gastric wedge ulcer Acute cerebral infarct Bilateral pleural effusion/consolidation Acute renal failure Atrial fibrillation with RVR h/o chronic alcohol use Anemia, s/p blood transfusion Acute liver failure,Elevated LFT, differential to consider is shock liver, patient noted to have episodes of hypotension,lfts were normal values since admission, consider medication induced , amiodarone was stopped. Status post fall,w/ multiple rib fractures S/P Hyponatremia NSTEMI COPD H/O Colon polyps PLAN: NPO, continue IVF continue Protonix every 12 on IV antibiotics as per ID On IV antibtioics Micafungin On Precedex on Levophed off anticoagulant SCD to lower extremities monitor h/h, Transfuse as necessary trend LFT/PT/INR as per surgery, icu team, ID Seen and discussed with Dr. Lemus. <Matthew Lemus V - Last Filed: 05/17/17 20:16> Objective - Vital Signs/Intake and Output Vital Signs (last 24 hours): Temp Pulse Resp BP Pulse Ox 99.1 F 109 H 23 139/55 L 94 L 05/08/17 06:30 05/08/17 10:37 05/08/17 07:34 05/08/17 10:37 05/08/17 07:34 Intake and Output: 05/08/17 05/09/17 18:59 06:59 Intake Total 1900 Output Total 850 Balance 1050 - Medications Medications: Current Medications Albuterol/Ipratropium (Duoneb 3 Mg/0.5 Mg (3 Ml) Ud) 3 ml IH [id number] [facility] Last Admin: 05/08/17 20:00 Dose: 3 ml Amlodipine Besylate (Norvasc) 10 mg PO DAILY [facility] Last Admin: 05/03/17 10:25 Dose: Not Given Chlorhexidine Gluconate (Peridex) 15 ml PO BID [facility] Last Admin: 05/07/17 17:36 Dose: 15 ml Hydralazine HCl (Apresoline) 10 mg IVP Q6 PRN PRN Reason: SBP> 160 Last Admin: 05/04/17 17:42 Dose: 10 mg Meropenem 1g/NS 100mL IVPB (Meropenem 1g/Ns 100ml Ivpb) 1 gm in 100 mls @ 100 mls/hr IVPB Q12 [facility] PRN Reason: Protocol Stop: 05/13/17 10:16 Last Admin: 05/08/17 10:39 Dose: 100 mls/hr Amiodarone HCl/Dextrose (Nexterone 360 Mg In D5w 200 Ml (Premix)) 360 mg in 200 mls @ 33.333 mls/hr IV .Q6H [facility]; 1 MG/MIN PRN Reason: Protocol Last Admin: 05/06/17 16:30 Dose: Not Given Fentanyl Citrate (Fentanyl Citrate/Sodium Chloride 1 Mg/100 Ml) 1,000 mcg in 100 mls @ 5 mls/hr IV .Q20H PRN; Protocol; 50 MCG/HR PRN Reason: TITRATE PER MD ORDER NOREPINEPHRINE BIT/0.9 % NACL (Levophed 4 Mg/ 250 Ml Ns Premixed) 4 mg in 250 mls @ 15 mls/hr IV .[id number] PRN; Protocol; 4 MCG/MIN PRN Reason: TITRATE PER MD ORDER Last Titration: 05/07/17 09:00 Dose: 0 mcg/min, 0 mls/hr Sodium Chloride (Sodium Chloride 0.9%) 1,000 mls @ 100 mls/hr IV .Q10H [facility]IL[facility] Last Admin: 05/07/17 12:13 Dose: Not Given Sodium Bicarbonate 100 meq/ (Sodium Chloride) 1,100 mls @ 150 mls/hr IV .Q7H20M [facility] Last Admin: 05/08/17 11:00 Dose: 150 mls/hr Dexmedetomidine HCl (Precedex 4 Mcg/Ml (100 Ml)) 400 mcg in 100 mls @ 4.264 mls /hr IV .[id number] PRN; Protocol; 0.2 MCG/KG/HR PRN Reason: Sedation Last Admin: 05/08/17 05:25 Dose: 0.2 mcg/kg/hr, 4.264 mls/hr diltiaZEM IVPB 100mg in NS (Cardizem 100mg In Ns) 100 mls @ 5 mls/hr IV .Q20H PRN; Protocol; 5 MG/HR PRN Reason: TITRATE PER MD ORDER Last Admin: 05/08/17 10:37 Dose: 5 mg/hr, 5 mls/hr Micafungin Sodium 100 mg/ (Sodium Chloride) 100 mls @ 100 mls/hr IV DAILY [facility]IL[facility] PRN Reason: Protocol Last Admin: 05/08/17 10:45 Dose: 100 mls/hr Metoprolol Tartrate (Lopressor) 5 mg IVP Q6H [facility] Last Admin: 05/06/17 17:34 Dose: Not Given Midazolam HCl (Versed Inj) 4 mg IVP Q4H PRN PRN Reason: Agitation Last Admin: 05/06/17 04:40 Dose: 4 mg Morphine Sulfate (Morphine) 2 mg IVP Q3H PRN PRN Reason: Pain, severe (8-10) Nitroglycerin (Nitro-Bid 2% Oint) 1 ea TOP 0000,0600,1200,1800 [facility] Last Admin: 05/08/17 18:50 Dose: Not Given Pantoprazole Sodium (Protonix Inj) 40 mg IVP Q12 [facility] Last Admin: 05/08/17 21:23 Dose: 40 mg Verapamil HCl (Verapamil Inj) 2.5 mg IVP Q6H PRN PRN Reason: for HEAT rate >130 - Labs Labs: 05/08/17 06:10 05/08/17 06:10 PT 20.9 SECONDS (9.4-12.5) H 05/08/17 06:10 INR 1.88 (0.93-1.08) H 05/08/17 06:10 APTT 32.9 Seconds (23.7-30.8) H 05/06/17 04:45 Attending/Attestation - Attestation I have personally seen and examined this patient.: Yes I have fully participated in the care of the patient.: Yes I have reviewed all pertinent clinical information, including history, physical exam and plan: Yes Notes (Text): This is an addendum to GI progress report dictated by Ana Freeman APN.The patient was seen and examined earlier. Medical records, lab studies, imagings were reviewed. Last 24 hours events reviewed. Agreed with the above treatment plan as outlined in Ana Freeman APN's notes the with the addition of the following Patient still remains in the event Hemoglobin stable follow up LFT discussed with gardening instructor 05/08/17 21:35 05/17/17 20:15
--- NOTE | 2017-05-08 12:37 | CP.PCM.PN ---
<SabrinaLily rose - Last Filed: 05/08/17 12:34> Subjective - Date & Time of Evaluation Date of Evaluation: 05/08/17 Time of Evaluation: 08:00 - Subjective Subjective: PGY-[address] Bowser Patient seen and examined at bedside in ICU. Patient is currently intubated on sedation. Continues to have abd pain, S/p ex lap pod #4. Objective - Vital Signs/Intake and Output Vital Signs (last 24 hours): Temp Pulse Resp BP Pulse Ox 99.1 F 109 H 23 139/55 L 94 L 05/08/17 06:30 05/08/17 10:37 05/08/17 07:34 05/08/17 10:37 05/08/17 07:34 Intake and Output: 05/08/17 05/08/17 06:59 18:59 Intake Total 1900 Output Total 60 Balance 1840 - Medications Medications: Current Medications Albuterol/Ipratropium (Duoneb 3 Mg/0.5 Mg (3 Ml) Ud) 3 ml IH [id number] [facility] Last Admin: 05/08/17 07:27 Dose: 3 ml Amlodipine Besylate (Norvasc) 10 mg PO DAILY SIL[facility]IA Last Admin: 05/03/17 10:25 Dose: Not Given Chlorhexidine Gluconate (Peridex) 15 ml PO BID SIL[facility]IA Last Admin: 05/07/17 17:36 Dose: 15 ml Hydralazine HCl (Apresoline) 10 mg IVP Q6 PRN PRN Reason: SBP> 160 Last Admin: 05/04/17 17:42 Dose: 10 mg Meropenem 1g/NS 100mL IVPB (Meropenem 1g/Ns 100ml Ivpb) 1 gm in 100 mls @ 100 mls/hr IVPB Q12 [facility] PRN Reason: Protocol Stop: 05/13/17 10:16 Last Admin: 05/08/17 10:39 Dose: 100 mls/hr Amiodarone HCl/Dextrose (Nexterone 360 Mg In D5w 200 Ml (Premix)) 360 mg in 200 mls @ 33.333 mls/hr IV .Q6H [facility]; 1 MG/MIN PRN Reason: Protocol Last Admin: 05/06/17 16:30 Dose: Not Given Fentanyl Citrate (Fentanyl Citrate/Sodium Chloride 1 Mg/100 Ml) 1,000 mcg in 100 mls @ 5 mls/hr IV .Q20H PRN; Protocol; 50 MCG/HR PRN Reason: TITRATE PER MD ORDER NOREPINEPHRINE BIT/0.9 % NACL (Levophed 4 Mg/ 250 Ml Ns Premixed) 4 mg in 250 mls @ 15 mls/hr IV .[id number] PRN; Protocol; 4 MCG/MIN PRN Reason: TITRATE PER MD ORDER Last Titration: 05/07/17 09:00 Dose: 0 mcg/min, 0 mls/hr Sodium Chloride (Sodium Chloride 0.9%) 1,000 mls @ 100 mls/hr IV .Q10H [facility] Last Admin: 05/07/17 12:13 Dose: Not Given Sodium Bicarbonate 100 meq/ (Sodium Chloride) 1,100 mls @ 150 mls/hr IV .Q7H20M [facility] Last Admin: 05/08/17 11:00 Dose: 150 mls/hr Dexmedetomidine HCl (Precedex 4 Mcg/Ml (100 Ml)) 400 mcg in 100 mls @ 4.264 mls /hr IV .[id number] PRN; Protocol; 0.2 MCG/KG/HR PRN Reason: Sedation Last Admin: 05/08/17 05:25 Dose: 0.2 mcg/kg/hr, 4.264 mls/hr diltiaZEM IVPB 100mg in NS (Cardizem 100mg In Ns) 100 mls @ 5 mls/hr IV .Q20H PRN; Protocol; 5 MG/HR PRN Reason: TITRATE PER MD ORDER Last Admin: 05/08/17 10:37 Dose: 5 mg/hr, 5 mls/hr Micafungin Sodium 100 mg/ (Sodium Chloride) 100 mls @ 100 mls/hr IV DAILY SILVIA PRN Reason: Protocol Last Admin: 05/08/17 10:45 Dose: 100 mls/hr Metoprolol Tartrate (Lopressor) 5 mg IVP Q6H [facility] Last Admin: 05/06/17 17:34 Dose: Not Given Midazolam HCl (Versed Inj) 4 mg IVP Q4H PRN PRN Reason: Agitation Last Admin: 05/06/17 04:40 Dose: 4 mg Morphine Sulfate (Morphine) 2 mg IVP Q3H PRN PRN Reason: Pain, severe (8-10) Nitroglycerin (Nitro-Bid 2% Oint) 1 ea TOP 0000,0600,1200,1800 [facility] Last Admin: 05/08/17 05:05 Dose: Not Given Pantoprazole Sodium (Protonix Inj) 40 mg IVP Q12 [facility] Last Admin: 05/08/17 10:57 Dose: 40 mg Verapamil HCl (Verapamil Inj) 2.5 mg IVP Q6H PRN PRN Reason: for HEAT rate >130 - Labs Labs: 05/08/17 06:10 05/08/17 06:10 PT 20.9 SECONDS (9.4-12.5) H 05/08/17 06:10 INR 1.88 (0.93-1.08) H 05/08/17 06:10 APTT 32.9 Seconds (23.7-30.8) H 05/06/17 04:45 - Constitutional Appears: Other (sedated) - Head Exam Head Exam: ATRAUMATIC, NORMAL INSPECTION, NORMOCEPHALIC - Eye Exam Eye Exam: Normal appearance - ENT Exam Additional comments: intubated - Respiratory Exam Respiratory Exam: Clear to Ausculation Bilateral, Rhonchi. absent: Rales, Wheezes, Stridor Additional comments: intubated on PRVC - Cardiovascular Exam Cardiovascular Exam: REGULAR RHYTHM, +S1, +S2. absent: Tachycardia, Murmur - GI/Abdominal Exam GI & Abdominal Exam: Soft, Normal Bowel Sounds. absent: Distended, Firm, Guarding, Rigid - Extremities Exam Extremities Exam: Normal Inspection. absent: Pedal Edema - Skin Skin Exam: Dry, Intact, Normal Color, Warm Assessment and Plan - Assessment and Plan (Free Text) Assessment: 77 yo male with no significant PMH initially presented with hyponatremia, hypokalemia, NSTEMI, s/p fall. Patient's found to have acute anemia due to blood loss from perforated gastric ulcer, patient went to surgery. Patient developed septic shock with metabolic acidosis and multiorgan failure including respiratory failure, JADEN, liver failure, most likely due to sepsis. Patient intubated due to respiratory failure. Patient had episodes of hypotension require pressors. Plan: 1. septic shock with metabolic acidosis with multiorgan failure - blood cultures grew yeast species - started on micafungin - episodes of hypotensive - AM labs reviewed leukocytosis, elevated lactate - repeat blood cultures - urine cultures negative - meropenum day 4 - cont IVF NS with sodiumbicarb at 150cc/ho - procalcitonin elevated - cxr bibasilar infiltrate - ID following 2. acute anemia due to blood loss from perforated gastric ulcer - AM labs reviewed, Hgb improved - recieved total 4 units pRBC - CT abd/ pel without PO/IV contrast reviewed showed free air with perforation ( refer to full report) - s/p laparotomy with wedge resection pod#4 - cont meropenem - protonix 40 q12 - cont IVF NS with sodiumbicarb at 150cc/ho - GI and surgery following 3. respiratory failure - patient is sedated and intubated on PRVC - CT chest showed moderate size pleural effusions left greater than right, minimal bibasilar consolidation adjacent to effusions, minimal right upper lobe interstitial infiltrates - abx, meropenem - ID consulted for sepsis 4. NSTEMI - troponin elevated - Echo on 05/01 showed mild concentric left ventricular hypertrophy, EF-55%, Mitral regurgitation is mild to moderate, mild tricuspid regurgitation, no pericardial effusion. - cont topical nitroglycerin - cont metoprolol - amiodarone started 5. A. Fib with RVR - Tachycardia improved - Amiodarone held due to acute liver failure - on cardizem drip - Repeat echocardiogram ordered for evaluation of atrial fibrillation and possible thrombus formation 6. elevated LFTs - most likely due to hypotension, shocked liver vs sepsis - trending down - hepatitis panel ordered - stopped Lipitor and amiodarone - GI following 7. Stroke - Head CT showed foci of hypodensity at posterior parietal and occipital lobes bilateral larger on left suspicious for acute infarct - MRI showed showed diffuse bilateral strokes - Patient placed on sedation - Ammonia normal - will not start anticoagulation, anti platelet tx due to risk of bleeding - Continue to monitor 8. severe hyponatremia and hypokalemia - labs reviewed, Na and K improving - most likely hypotonic, hypovolemic hyponatremia - cont IVF NS with sodiumbicarb at 150cc/ho - potassium replace - will continue to monitor 9. JADEN - most likely pre-renal due to hypotension - with decreased urine output - cont IVF NS with sodiumbicarb at 150cc/ho - cont to monitor 10. s/p fall - CT head showed No intracranial mass, hemorrhage or evidence of acute infarct. - CT chest showed No evidence of lung mass, Vertebral fracture of T8, Multiple left-sided rib fractures with a moderate size left pleural effusion. - pain control 11. HTN - patient had episodes of hypotension - BP meds placed on hold due to hypotension - cont to monitor - Patients next of kin is unknown, administrator social welfare aware. <MagueJarocho S - Last Filed: 05/08/17 20:10> Objective - Vital Signs/Intake and Output Vital Signs (last 24 hours): Temp Pulse Resp BP Pulse Ox 99.1 F 109 H 23 139/55 L 94 L 05/08/17 06:30 05/08/17 10:37 05/08/17 07:34 05/08/17 10:37 05/08/17 07:34 Intake and Output: 05/08/17 05/09/17 18:59 06:59 Intake Total 1900 Output Total 850 Balance 1050 - Medications Medications: Current Medications Albuterol/Ipratropium (Duoneb 3 Mg/0.5 Mg (3 Ml) Ud) 3 ml IH [id number] SILVIA Last Admin: 05/08/17 20:00 Dose: 3 ml Amlodipine Besylate (Norvasc) 10 mg PO DAILY SILVIA Last Admin: 05/03/17 10:25 Dose: Not Given Chlorhexidine Gluconate (Peridex) 15 ml PO BID SILVIA Last Admin: 05/07/17 17:36 Dose: 15 ml Hydralazine HCl (Apresoline) 10 mg IVP Q6 PRN PRN Reason: SBP> 160 Last Admin: 05/04/17 17:42 Dose: 10 mg Meropenem 1g/NS 100mL IVPB (Meropenem 1g/Ns 100ml Ivpb) 1 gm in 100 mls @ 100 mls/hr IVPB Q12 [facility]IL[facility] PRN Reason: Protocol Stop: 05/13/17 10:16 Last Admin: 05/08/17 10:39 Dose: 100 mls/hr Amiodarone HCl/Dextrose (Nexterone 360 Mg In D5w 200 Ml (Premix)) 360 mg in 200 mls @ 33.333 mls/hr IV .Q6H [facility]; 1 MG/MIN PRN Reason: Protocol Last Admin: 05/06/17 16:30 Dose: Not Given Fentanyl Citrate (Fentanyl Citrate/Sodium Chloride 1 Mg/100 Ml) 1,000 mcg in 100 mls @ 5 mls/hr IV .Q20H PRN; Protocol; 50 MCG/HR PRN Reason: TITRATE PER MD ORDER NOREPINEPHRINE BIT/0.9 % NACL (Levophed 4 Mg/ 250 Ml Ns Premixed) 4 mg in 250 mls @ 15 mls/hr IV .[id number] PRN; Protocol; 4 MCG/MIN PRN Reason: TITRATE PER MD ORDER Last Titration: 05/07/17 09:00 Dose: 0 mcg/min, 0 mls/hr Sodium Chloride (Sodium Chloride 0.9%) 1,000 mls @ 100 mls/hr IV .Q10H [facility] Last Admin: 05/07/17 12:13 Dose: Not Given Sodium Bicarbonate 100 meq/ (Sodium Chloride) 1,100 mls @ 150 mls/hr IV .Q7H20M [facility] Last Admin: 05/08/17 11:00 Dose: 150 mls/hr Dexmedetomidine HCl (Precedex 4 Mcg/Ml (100 Ml)) 400 mcg in 100 mls @ 4.264 mls /hr IV .[id number] PRN; Protocol; 0.2 MCG/KG/HR PRN Reason: Sedation Last Admin: 05/08/17 05:25 Dose: 0.2 mcg/kg/hr, 4.264 mls/hr diltiaZEM IVPB 100mg in NS (Cardizem 100mg In Ns) 100 mls @ 5 mls/hr IV .Q20H PRN; Protocol; 5 MG/HR PRN Reason: TITRATE PER MD ORDER Last Admin: 05/08/17 10:37 Dose: 5 mg/hr, 5 mls/hr Micafungin Sodium 100 mg/ (Sodium Chloride) 100 mls @ 100 mls/hr IV DAILY SILVIA PRN Reason: Protocol Last Admin: 05/08/17 10:45 Dose: 100 mls/hr Metoprolol Tartrate (Lopressor) 5 mg IVP Q6H [facility] Last Admin: 05/06/17 17:34 Dose: Not Given Midazolam HCl (Versed Inj) 4 mg IVP Q4H PRN PRN Reason: Agitation Last Admin: 05/06/17 04:40 Dose: 4 mg Morphine Sulfate (Morphine) 2 mg IVP Q3H PRN PRN Reason: Pain, severe (8-10) Nitroglycerin (Nitro-Bid 2% Oint) 1 ea TOP 0000,0600,1200,1800 [facility] Last Admin: 05/08/17 18:50 Dose: Not Given Pantoprazole Sodium (Protonix Inj) 40 mg IVP Q12 [facility] Last Admin: 05/08/17 10:57 Dose: 40 mg Verapamil HCl (Verapamil Inj) 2.5 mg IVP Q6H PRN PRN Reason: for HEAT rate >130 - Labs Labs: 05/08/17 06:10 05/08/17 06:10 PT 20.9 SECONDS (9.4-12.5) H 05/08/17 06:10 INR 1.88 (0.93-1.08) H 05/08/17 06:10 APTT 32.9 Seconds (23.7-30.8) H 05/06/17 04:45 Assessment and Plan - Assessment and Plan (Free Text) Plan: Pt is seen and examined. Note of medical investigator reviewed and I am in agree with it. Reviewed Labs and medications. Reviewed notes. Poor prognosis. No family available.
--- NOTE | 2017-05-08 13:10 | CP.PCM.PN ---
Subjective - Date & Time of Evaluation Date of Evaluation: 05/08/17 Time of Evaluation: 11:00 - Subjective Subjective: Unresponsive, intubated Objective - Vital Signs/Intake and Output Vital Signs (last 24 hours): Temp Pulse Resp BP Pulse Ox 99.1 F 109 H 23 139/55 L 94 L 05/08/17 06:30 05/08/17 10:37 05/08/17 07:34 05/08/17 10:37 05/08/17 07:34 Intake and Output: 05/08/17 05/08/17 06:59 18:59 Intake Total 1900 Output Total 60 Balance 1840 - Medications Medications: Current Medications Albuterol/Ipratropium (Duoneb 3 Mg/0.5 Mg (3 Ml) Ud) 3 ml IH [id number] SILVIA Last Admin: 05/08/17 07:27 Dose: 3 ml Amlodipine Besylate (Norvasc) 10 mg PO DAILY SILVIA Last Admin: 05/03/17 10:25 Dose: Not Given Chlorhexidine Gluconate (Peridex) 15 ml PO BID SIL[facility]IA Last Admin: 05/07/17 17:36 Dose: 15 ml Hydralazine HCl (Apresoline) 10 mg IVP Q6 PRN PRN Reason: SBP> 160 Last Admin: 05/04/17 17:42 Dose: 10 mg Meropenem 1g/NS 100mL IVPB (Meropenem 1g/Ns 100ml Ivpb) 1 gm in 100 mls @ 100 mls/hr IVPB Q12 [facility] PRN Reason: Protocol Stop: 05/13/17 10:16 Last Admin: 05/08/17 10:39 Dose: 100 mls/hr Amiodarone HCl/Dextrose (Nexterone 360 Mg In D5w 200 Ml (Premix)) 360 mg in 200 mls @ 33.333 mls/hr IV .Q6H SIL[facility]IA; 1 MG/MIN PRN Reason: Protocol Last Admin: 05/06/17 16:30 Dose: Not Given Fentanyl Citrate (Fentanyl Citrate/Sodium Chloride 1 Mg/100 Ml) 1,000 mcg in 100 mls @ 5 mls/hr IV .Q20H PRN; Protocol; 50 MCG/HR PRN Reason: TITRATE PER MD ORDER NOREPINEPHRINE BIT/0.9 % NACL (Levophed 4 Mg/ 250 Ml Ns Premixed) 4 mg in 250 mls @ 15 mls/hr IV .[id number] PRN; Protocol; 4 MCG/MIN PRN Reason: TITRATE PER MD ORDER Last Titration: 05/07/17 09:00 Dose: 0 mcg/min, 0 mls/hr Sodium Chloride (Sodium Chloride 0.9%) 1,000 mls @ 100 mls/hr IV .Q10H [facility] Last Admin: 05/07/17 12:13 Dose: Not Given Sodium Bicarbonate 100 meq/ (Sodium Chloride) 1,100 mls @ 150 mls/hr IV .Q7H20M [facility] Last Admin: 05/08/17 11:00 Dose: 150 mls/hr Dexmedetomidine HCl (Precedex 4 Mcg/Ml (100 Ml)) 400 mcg in 100 mls @ 4.264 mls /hr IV .[id number] PRN; Protocol; 0.2 MCG/KG/HR PRN Reason: Sedation Last Admin: 05/08/17 05:25 Dose: 0.2 mcg/kg/hr, 4.264 mls/hr diltiaZEM IVPB 100mg in NS (Cardizem 100mg In Ns) 100 mls @ 5 mls/hr IV .Q20H PRN; Protocol; 5 MG/HR PRN Reason: TITRATE PER MD ORDER Last Admin: 05/08/17 10:37 Dose: 5 mg/hr, 5 mls/hr Micafungin Sodium 100 mg/ (Sodium Chloride) 100 mls @ 100 mls/hr IV DAILY SILVIA PRN Reason: Protocol Last Admin: 05/08/17 10:45 Dose: 100 mls/hr Metoprolol Tartrate (Lopressor) 5 mg IVP Q6H [facility] Last Admin: 05/06/17 17:34 Dose: Not Given Midazolam HCl (Versed Inj) 4 mg IVP Q4H PRN PRN Reason: Agitation Last Admin: 05/06/17 04:40 Dose: 4 mg Morphine Sulfate (Morphine) 2 mg IVP Q3H PRN PRN Reason: Pain, severe (8-10) Nitroglycerin (Nitro-Bid 2% Oint) 1 ea TOP 0000,0600,1200,1800 [facility] Last Admin: 05/08/17 05:05 Dose: Not Given Pantoprazole Sodium (Protonix Inj) 40 mg IVP Q12 [facility] Last Admin: 05/08/17 10:57 Dose: 40 mg Verapamil HCl (Verapamil Inj) 2.5 mg IVP Q6H PRN PRN Reason: for HEAT rate >130 - Labs Labs: 05/08/17 06:10 05/08/17 06:10 PT 20.9 SECONDS (9.4-12.5) H 05/08/17 06:10 INR 1.88 (0.93-1.08) H 05/08/17 06:10 APTT 32.9 Seconds (23.7-30.8) H 05/06/17 04:45 - Constitutional Appears: Chronically Ill - Eye Exam Eye Exam: Normal appearance, PERRL - ENT Exam ENT Exam: Mucous Membranes Moist - Respiratory Exam Respiratory Exam: Decreased Breath Sounds - Cardiovascular Exam Cardiovascular Exam: Tachycardia, +S1, +S2 - GI/Abdominal Exam GI & Abdominal Exam: Diminished Bowel Sounds Additional comments: NG draining dark coffee ground - Extremities Exam Extremities Exam: Pedal Edema - Neurological Exam Neurological Exam: Altered - Skin Skin Exam: Dry, Warm Assessment and Plan - Assessment and Plan (Free Text) Assessment: 77 year old male with history of COPD, chronic back pain who was admitted with hyponatremia,hypokalemia, sepsis, GI bleed, GI perforation s/p viscus repair, multi organ failure acute parietal and occidental lobe infarcts 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 Both landlord and friend report that the patient lost his sister recently and that he has no spouse or children. Plan: Will follow
--- NOTE | 2017-05-08 15:45 | PN ---
DATE: 05/08/2017 REASON FOR CONSULTATION AND FOLLOWUP: Status post acute abdomen, status post perforation of the hollow viscus, status post massive bilateral stroke possibly secondary to hypotension, rule out anoxic encephalopathy, status post exploratory laparotomy, paroxysmal atrial fibrillation, and history of coronary artery disease. SUBJECTIVE: The patient remains on the vent, minimally responsive to verbal stimuli. OBJECTIVE: GENERAL: On vent, now the patient is in normal sinus, but goes back and forth into AFib. VITAL SIGNS: As follows: Temperature afebrile, heart rate 91, blood pressure 153/83. HEENT: PERRLA. Extraocular muscles are intact. NECK: Supple. No carotid bruit. No thyromegaly. CHEST: Clear to auscultation. HEART: S1 and S2, regular. ABDOMEN: Soft. EXTREMITIES: Clubbing and cyanosis negative. LABORATORY DATA: Blood workup as follows: WBC 14.0, hemoglobin 11.2, hematocrit 31.9, and platelet count 224. Chemistry shows sodium 140, potassium 3.5, chloride 117, carbon dioxide 21, anion gap of 14, BUN 18, and creatinine 2.9. AST 3,583 and ALT 3,414. Total protein 4.4 and albumin 2.1. IMPRESSION: A 77-year-old male admitted after a fall and hyponatremia, non-ST segment myocardial infarction. During course of hospitalization, the patient had black, tarry stool and perforation of hollow viscus. The patient was scheduled for cardiac catheterization. The patient has perforation, so it was held and the patient underwent emergent exploratory laparotomy with resection of the stomach as well as partial colon removed. Postoperative course was complicated with massive bilateral stroke consistent with hypotension possibly per MRI. The patient's postoperative course is also complicated by paroxysmal atrial fibrillation and flutter, protein-calorie malnutrition, and anemia. RECOMMENDATIONS: Since the patient is n.p.o. and goes back and forth, we will continue Cardizem drip. Avoid amiodarone because of liver toxicity and acute liver injury, possibly secondary to hypotension. Wean off the Levophed as tolerated. We will continue 5 mg of Cardizem. Long-term needs, the patient needs PEG and tracheostomy. Strongly consider administrative consent for PEG and tracheostomy as the patient has no relatives, only neighbor is available. Discussed with machine iii coremaker, Dr. Rivera. Discussed with resident taking care of the patient. Supplement electrolytes. We will give p.r.n. serum albumin is given to increase the blood pressure. Wean off the vent. Wean off the Levophed as blood pressure tolerated. We will supplement potassium. Supa Nick MD
--- NOTE | 2017-05-08 19:42 | CON ---
DATE: NEUROLOGY CONSULTATION REASON FOR CONSULTATION: Extensive bilateral strokes on MRI. HISTORY OF PRESENTING ILLNESS: The patient is a 77-year-old male who has come for evaluation of abnormal MRI of the brain. The patient is status post exploratory laparotomy, day 4. The patient is unable to give history. History is obtained from the chart. This is because the patient is intubated. The patient also had acute anemia because of blood loss from perforated gastric ulcer. The patient had episode of hypotension as well which required pressors. REVIEW OF SYSTEMS: Unable to obtain because of the patient's current mental status. However, the patient does not have any fever and does not have any abnormal movements. PAST MEDICAL HISTORY: Includes dizziness, COPD, history of weight loss. CURRENT MEDICATIONS: Include diltiazem, dexmedetomidine, albuterol, fentanyl, Meronem, morphine, Peridex, Protonix, Versed p.r.n. ALLERGIES: NO KNOWN DRUG ALLERGIES. SOCIAL HISTORY: The patient used to drink alcohol, positive for smoking history, unknown for use of any illicit drugs. FAMILY HISTORY: Unknown. PHYSICAL EXAMINATION: GENERAL: The patient is an elderly male, on ventilator, in no acute distress. VITAL SIGNS: His blood pressure is 139/56, heart rate is 88 per minute, he is breathing at a rate of 22 per minute, his temperature is 99.1 degrees Fahrenheit. HEENT: Head is normocephalic and atraumatic. NECK: Supple. There are no carotid bruits. LUNGS: Clear. CARDIOVASCULAR EXAM: S1 and S2 audible. No murmurs. ABDOMEN: Soft and nontender. Bowel sounds are present. NEUROLOGIC EXAM: Mental Status: The patient is unresponsive to verbal and noxious stimuli. He does not follow any commands. Cranial Nerve Examination: Pupils are 2 mm, minimally reactive to light. Positive doll's eye movement. Positive corneal reflex. Motor Examination: Tone is decreased in upper extremities. He withdraws his lower extremities to noxious and painful stimuli. There is no withdrawal of upper extremities to noxious or painful stimuli. Reflexes are absent. Plantars, no response. Gait is untestable. LABORATORY DATA: Labs reviewed shows WBC of 14.8, hemoglobin of 11.2, hematocrit of 31.9, and platelets of 224. His sodium is 148, potassium 3.5, chloride 117, carbon dioxide 21, BUN of 89, creatinine of 2.9, and glucose of 101. He had MRI of the brain, which showed extensive infarcts in both cerebral and cerebellar hemispheres. The infarcts involve the frontoparietal and occipital lobes in symmetrical pattern. The infarcts of the cerebellar hemisphere are also in a symmetrical pattern. Finding consistent with hypoxic or hypotensive event. IMPRESSION: 1. Cerebrovascular accident, which appears to be secondary to watershed infarcts, likely from his episodes of hypotension. 2. Respiratory failure. 3. Sepsis. 4. Status post abdominal surgery. RECOMMENDATIONS: 1. The patient to have carotid Doppler studies. 2. The patient to be started on aspirin if okay from surgical standpoint. 3. Once the patient starts taking oral, then may need to be started on statin. 4. The patient is currently on IV antibiotics for his sepsis, which is to be continued. 5. The patient to have an electroencephalogram. 6. The patient's prognosis is guarded to poor. 7. Please continue supportive care and other treatment. Thank you for the opportunity to participate in the care of this patient. Twila Rivera MD
[2017-05-09] MEDS: Albuterol-Ipratrop 3 mg / 0.5 (3 ml) UD IH SCH ×4 (02:30→19:51)
[2017-05-09] MEDS: Nitroglycerin 2% Ointment Foilpak UD TOP SCH ×3 (02:33→17:23)
[2017-05-09 06:24] LABS: ARTERIAL BLOOD GAS HCO3 22.6 mmol/L (21-28); ARTERIAL BLOOD GAS PH 7.47 (7.35-7.45)
[2017-05-09 06:55] LABS: BASO # 0.05 K/mm3 (0.0-2.0); BASO % 0.5 % (0.0-3.0); EOS # 0.1 (0.0-0.7); EOS % 0.5 % (1.5-5.0); GRAN # 8.53 (1.4-6.5); GRAN % 76.9 % (50.0-68.0); HEMATOCRIT 33.4 % (42.0-52.0); LYMPH # 1.4 (1.2-3.4); LYMPH % 12.8 % (22.0-35.0); MEAN CELL VOLUME 94.4 fl (80.0-105.0); MEAN CORPUSCULAR HEMOGLOBIN 32.5 pg (25.0-35.0); MEAN CORPUSCULAR HGB CONC 34.4 g/dl (31.0-37.0); MEAN PLATELET VOLUME 9.5 fl (7.0-11.0); MONO % 9.3 % (1.0-6.0); WHITE BLOOD COUNT 11.1 10^3/ul (4.5-11.0)
[2017-05-09 07:00] LABS: ALB/GLOB RATIO 0.9 (1.1-1.8); BILIRUBIN,TOTAL 1.7 mg/dL (0.2-1.3); CALCIUM 7.3 mg/dL (8.4-10.5); PHOSPHOROUS 4.6 mg/dL (2.5-4.5); POTASSIUM 3.9 mmol/L (3.6-5.0); TOTAL PROTEIN 4.8 g/dL (5.8-8.3)
[2017-05-09 07:19] LABS: INR 1.71 (0.93-1.08)
--- NOTE | 2017-05-09 09:27 | CP.PCM.PN ---
Subjective - Date & Time of Evaluation Date of Evaluation: 05/09/17 Time of Evaluation: 09:25 - Subjective Subjective: Surgery Pt s&e. INtubaed. Doesn't follow commands. Objective - Vital Signs/Intake and Output Vital Signs (last 24 hours): Temp Pulse Resp BP Pulse Ox 98.1 F 67 26 H 118/57 L 99 05/09/17 08:30 05/09/17 08:30 05/09/17 07:45 05/09/17 08:00 05/09/17 08:30 Intake and Output: 05/09/17 05/09/17 06:59 18:59 Intake Total 1160 Output Total 730 Balance 430 - Medications Medications: Current Medications Albuterol/Ipratropium (Duoneb 3 Mg/0.5 Mg (3 Ml) Ud) 3 ml IH [id number] SILVIA Last Admin: 05/09/17 07:45 Dose: 3 ml Amlodipine Besylate (Norvasc) 10 mg PO DAILY SILVIA Last Admin: 05/03/17 10:25 Dose: Not Given Chlorhexidine Gluconate (Peridex) 15 ml PO BID SILVIA Last Admin: 05/07/17 17:36 Dose: 15 ml Hydralazine HCl (Apresoline) 10 mg IVP Q6 PRN PRN Reason: SBP> 160 Last Admin: 05/04/17 17:42 Dose: 10 mg Meropenem 1g/NS 100mL IVPB (Meropenem 1g/Ns 100ml Ivpb) 1 gm in 100 mls @ 100 mls/hr IVPB Q12 SILVIA PRN Reason: Protocol Stop: 05/13/17 10:16 Last Admin: 05/08/17 21:51 Dose: 100 mls/hr Amiodarone HCl/Dextrose (Nexterone 360 Mg In D5w 200 Ml (Premix)) 360 mg in 200 mls @ 33.333 mls/hr IV .Q6H SILVIA; 1 MG/MIN PRN Reason: Protocol Last Admin: 05/06/17 16:30 Dose: Not Given Fentanyl Citrate (Fentanyl Citrate/Sodium Chloride 1 Mg/100 Ml) 1,000 mcg in 100 mls @ 5 mls/hr IV .Q20H PRN; Protocol; 50 MCG/HR PRN Reason: TITRATE PER MD ORDER NOREPINEPHRINE BIT/0.9 % NACL (Levophed 4 Mg/ 250 Ml Ns Premixed) 4 mg in 250 mls @ 15 mls/hr IV .[id number] PRN; Protocol; 4 MCG/MIN PRN Reason: TITRATE PER MD ORDER Last Titration: 05/07/17 09:00 Dose: 0 mcg/min, 0 mls/hr Sodium Chloride (Sodium Chloride 0.9%) 1,000 mls @ 100 mls/hr IV .Q10H SILVIA Last Admin: 05/07/17 12:13 Dose: Not Given Sodium Bicarbonate 100 meq/ (Sodium Chloride) 1,100 mls @ 150 mls/hr IV .[id number] SILVIA Last Admin: 05/09/17 02:35 Dose: 150 mls/hr Dexmedetomidine HCl (Precedex 4 Mcg/Ml (100 Ml)) 400 mcg in 100 mls @ 4.264 mls /hr IV .[id number] PRN; Protocol; 0.2 MCG/KG/HR PRN Reason: Sedation Last Admin: 05/08/17 23:09 Dose: 0.2 mcg/kg/hr, 4.264 mls/hr diltiaZEM IVPB 100mg in NS (Cardizem 100mg In Ns) 100 mls @ 5 mls/hr IV .Q20H PRN; Protocol; 5 MG/HR PRN Reason: TITRATE PER MD ORDER Last Admin: 05/08/17 10:37 Dose: 5 mg/hr, 5 mls/hr Micafungin Sodium 100 mg/ (Sodium Chloride) 100 mls @ 100 mls/hr IV DAILY SILVIA PRN Reason: Protocol Last Admin: 05/08/17 10:45 Dose: 100 mls/hr Metoprolol Tartrate (Lopressor) 5 mg IVP Q6H [facility] Last Admin: 05/06/17 17:34 Dose: Not Given Midazolam HCl (Versed Inj) 4 mg IVP Q4H PRN PRN Reason: Agitation Last Admin: 05/06/17 04:40 Dose: 4 mg Morphine Sulfate (Morphine) 2 mg IVP Q3H PRN PRN Reason: Pain, severe (8-10) Nitroglycerin (Nitro-Bid 2% Oint) 1 ea TOP 0000,0600,1200,1800 [facility] Last Admin: 05/09/17 08:21 Dose: Not Given Pantoprazole Sodium (Protonix Inj) 40 mg IVP Q12 SILVIA Last Admin: 05/08/17 21:23 Dose: 40 mg Verapamil HCl (Verapamil Inj) 2.5 mg IVP Q6H PRN PRN Reason: for HEAT rate >130 - Labs Labs: 05/09/17 06:40 05/09/17 06:40 PT 19.0 SECONDS (9.4-12.5) H 05/09/17 06:40 INR 1.71 (0.93-1.08) H 05/09/17 06:40 APTT 32.9 Seconds (23.7-30.8) H 05/06/17 04:45 - Constitutional Appears: In Acute Distress, Chronically Ill - Head Exam Head Exam: ATRAUMATIC, NORMAL INSPECTION, NORMOCEPHALIC - ENT Exam Additional comments: INtubated - Respiratory Exam Respiratory Exam: Respiratory Distress. absent: NORMAL BREATHING PATTERN - Cardiovascular Exam Cardiovascular Exam: REGULAR RHYTHM, +S1, +S2. absent: Murmur - GI/Abdominal Exam GI & Abdominal Exam: Soft, Normal Bowel Sounds. absent: Distended, Firm, Guarding Additional comments: Incision C/D/I. Drain in place SS - Exam Additional comments: Rosario 600/12hrs - Extremities Exam Extremities Exam: Normal Inspection - Neurological Exam Neurological Exam: absent: Alert, Awake, Normal Gait, Oriented x3 - Skin Skin Exam: Dry, Intact, Normal Color, Warm Assessment and Plan - Assessment and Plan (Free Text) Assessment: 77 M s/p Exploratory laparotomy and Gastric wedge resection for perforated gastric ulcer/pneumoperitoneum POD#5. Afib RVR, stroke. Hypoperfusion multiorgan failure -Management as per ICU -GI on board -Will ARIAN Macdonald
--- NOTE | 2017-05-09 09:33 | PN ---
DATE: 05/09/2017 YARD HAND NOTE SUBJECTIVE: The patient is unresponsive on the ventilator at this time and hemodynamically is fairly stable. The patient is tolerating medications. PHYSICAL EXAMINATION: VITAL SIGNS: His temperature is 98.1, his pulse is 74, respirations are 16 and his BP is 127/53. SKIN: Warm and dry. HEENT: Head is atraumatic and normocephalic. Eyes are slightly reactive to light. Ears, nose and throat seemed to be within normal limits. NECK: Supple. No JVD. No thyroid enlargement. No lymph nodes. HEART: Has a regular rate and rhythm. Normal S1 and S2. LUNGS: Reveal rale, rhonchi bilaterally. ABDOMEN: Soft and nontender. Decreased bowel sounds. GENITALIA AND RECTAL: Deferred. MUSCULOSKELETAL: No joint deformities. EXTREMITIES: Reveal trace lower extremity edema. NEUROLOGICAL: He is unresponsive on the ventilator. LABORATORY DATA: Show a white count of 11.1, hemoglobin of 11.5, and hematocrit of 33.4, with platelets of 232,000. Arterial blood gas reveals the pH of 7.47, pCO2 of 31, and pO2 of 92. Sodium is 150, potassium is 3.9, chloride is 119, CO2 of 23 with a BUN of , creatinine of 2.4 and a glucose of 101. IMPRESSION: This patient has respiratory failure and history of chronic obstructive pulmonary disease, at this time, has a fungemia with multiorgan failure, status post gastric perforation and repair, cerebrovascular accident, and is noted to have renal insufficiency as well as shock liver. PLAN: As far as our plan, we will continue with ventilator support and monitor closely. The patient is getting bronchodilators of DuoNeb and he is getting Versed for comfort and sedation. We are following him with the chest x-ray and arterial blood gas and we will continue to treat aggressively along with the other consultants and primary care doctor. Ramos Briones MD
--- NOTE | 2017-05-09 09:43 | PN ---
DATE: 05/09/2017 SUBJECTIVE: The patient is in bed, in no acute distress, nontoxic. OBJECTIVE: VITAL SIGNS: Temperature of 98, blood pressure is 127/50, respiratory rate of 18 and heart rate of 78. EXAMINATION OF HEENT: Unremarkable. NECK: Supple. LUNGS: Have decreased breath sounds. HEART EXAM: Normal S1 and S2. ABDOMINAL EXAMINATION: Soft and nontender. LABORATORY EXAMINATION: Reveals a white count of 11,000; hemoglobin of 11; platelets of 232. Coagulation is noted. The chemistries reveal a BUN of 89, creatinine of 2.4, AST is elevated at 1395; however, it has improved by yesterday which was over 3000. Microbiology has yeast in the positive blood cultures, the repeat blood cultures are no growth at 24 hours. REVIEW OF ORDERS: Reveals the patient to be on meropenem and micafungin. Cecilia Cruz's note is reviewed from yesterday, and Dr. Bowser's note is reviewed from yesterday. ASSESSMENT AND PLAN: A 77-year-old male, seen earlier today in #129 CCU, bed #4, who has septic shock and cardiogenic shock, respiratory failure, intubated on a ventilator and acute liver shock, status post perforated gastric ulcer, status post exploratory laparotomy and gastric wedge resection and drainage of a colonic abscess with the postprocedure day #5, now with septic shock with fungemia. Blood cultures were positive for yeast and all the lines have been changed. The patient also with healthcare-associated pneumonia, bilateral, probable bacterial, Gram-positive versus Gram-negative pneumonia. With new MRI findings of extensive infarction, both cerebral and cerebellar hemispheres, on Mycamine and meropenem. Overall prognosis is poor. We will ask for a repeat echo because of the fungemia and ophthalmology exam because of the fungemia and repeat blood cultures, awaiting for identification. We also asked for sensitivity for anurag. We will follow with you. Case discussed with the diversity intern responsible for the case, he is to put in for orders for echo and ophthalmology exam. Dinesh Rosario MD
[2017-05-09] MEDS: Chlorhexidine 0.12% Oral Sol 480 ml Bot PO SCH ×2 (10:00→18:00)
[2017-05-09] MEDS: Micafungin 100 MG in Sodium Chloride 0.9% 100 ML IV SCH (10:47)
[2017-05-09] MEDS: Meropenem 1g/NS 100mL IVPB 1 GM/100 ML PIGGYBACK IVPB SCH ×2 (10:48→22:22)
--- NOTE | 2017-05-09 10:50 | RAD ---
HISTORY: intubated COMPARISON: 05/07/2017 FINDINGS: LUNGS: Increasing bilateral lower lobe infiltrates are seen. Endotracheal and nasogastric tube remain in satisfactory position PLEURA: No significant pleural effusion identified, no pneumothorax apparent. CARDIOVASCULAR: Normal. OSSEOUS STRUCTURES: No significant abnormalities. VISUALIZED UPPER ABDOMEN: Normal. OTHER FINDINGS: None. IMPRESSION: Increasing bilateral lower lobe infiltrates
[2017-05-09] MEDS: Dexmedetomidine HCl 4mcg/ml 400 MCG/100 ML BOTTLE IV PRN (12:17)
--- NOTE | 2017-05-09 14:22 | RAD ---
PROCEDURE: NG placement HISTORY: NG PLACEMENT COMPARISON: Earlier same day TECHNIQUE: FINDINGS: The feeding tube is seen in satisfactory position in the gastric fundus IMPRESSION: As above
--- NOTE | 2017-05-09 14:30 | CARD ---
APPROVED REPORT EXAM: Two-dimensional and M-mode echocardiogram with Doppler and color Doppler. INDICATION 2D DIMENSIONS IVSd0.9 (0.7-1.1cm)LVDd5.3 (3.9-5.9cm) PWd1.2 (0.7-1.1cm)LVDs3.7 (2.5-4.0cm) FS (%) 30.2 %LVEF (%)57.0 (>50%) M-Mode DIMENSIONS Left Atrium (MM)3.80 (2.5-4.0cm)Aortic Root2.20 (2.2-3.7cm) Aortic Cusp Exc.1.70 (1.5-2.0cm) Aortic Valve AoV Peak Yvkfhzkh17.7cm/Jairon Peak GR.2mmHg Mitral Valve MV E Ihtjtxdn42.1cm/sMV A Vrshgbob56.8cm/sE/A ratio1.4 TDI Lateral E' Peak V9.07cm/sMedial E' Peak V6.92cm/sE/Lateral E'8.1 E/Medial E'10.6 Tricuspid Valve TR Peak Taeaxvqh643pl/sRAP UTFXRZVQ12ynGcFJ Peak Gr.21mmHg [id number] LEFT VENTRICLE The left ventricle is normal size. There is normal left ventricular wall thickness. The left ventricular ejection fraction is within the normal range. Septal hypokinesis The left ventricular diastolic function is normal. RIGHT VENTRICLE The right ventricle is normal size. There is normal right ventricular wall thickness. The right ventricular systolic function is normal. ATRIA The left atrium size is normal. The right atrium size is normal. AORTIC VALVE The aortic valve is not well visualized. MITRAL VALVE The mitral valve is not well visualized. GREAT VESSELS The aortic root is normal in size. The IVC is dilated. PERICARDIAL EFFUSION There is small left pleural effusion. There is a small circumferential pericardial effusion. <Conclusion> The left ventricle is normal size. There is normal left ventricular wall thickness. The left ventricular ejection fraction is within the normal range. Septal hypokinesis There is small left pleural effusion. There is a small circumferential pericardial effusion.
[2017-05-09] MEDS ORDERED: Tropicamide 1% Opht SOLUTION OD ONE (14:38)
[2017-05-09] MEDS ORDERED: Phenylephrine 10% Opht (5 ml) OD ONE (14:38)
--- NOTE | 2017-05-09 17:07 | PN ---
DATE: 05/05/2017 LOCATION: The patient in CCU bed 4. REASON FOR CONSULTATION AND FOLLOWUP: Status post acute abdomen, status post perforation of the hollow viscus, status post bilateral massive stroke possibly secondary to hypotension, rule out anoxic encephalopathy, status post exploratory laparotomy, paroxysmal atrial fibrillation, and history of coronary artery disease. SUBJECTIVE: The patient is respiratory dependent and responds minimally to stimuli. PHYSICAL EXAMINATION VITAL SIGNS: Blood pressure 118/55, the patient on respirator, pulse 62, temperature 97.5. HEENT: Head is normocephalic. Eyes pupils normal, conjunctiva slightly pale. NECK: JVP low, carotid equal, thorax and AP diameter normal. LUNGS: Clear. CARDIOVASCULAR: S1 and S2. ABDOMEN: Post laparotomy as mentioned. EXTREMITIES: No clubbing or cyanosis. LABORATORY DATA: WBC 11.1, hemoglobin 11.5, hematocrit 33.4, and platelets 232. Sodium 150, potassium 3.9, BUN 89, creatinine 2.4, AST 1395, ALT 2232, alkaline phosphatase 133, total protein 4.8, and albumin 2.3. DIAGNOSES: 1. Hyponatremia, now hypernatremia. 2. Non-ST segment elevation myocardial infraction. 3. Gastrointestinal bleeding. 4. Perforation of hollow viscus. 5. Status post emergency exploratory laparotomy with resection of the stomach as well as partial colon removal, postoperative course was complicated with massive bilateral strokes consistent with possible episode of hypotension. 6. Paroxysmal atrial fibrillation with flutter. 7. Protein calorie malnutrition. 8. Anemia. PLAN: 1. The patient was scheduled for cath, but then he had perforation and had laparotomy. We are giving the patient Cardizem, but not giving any amiodarone because of abnormal liver function test. 2. The patient will have NG tube placed today. 3. The patient on Cardizem drip 5 mg per hour. 4. Nitro paste one-inch q. 6 hours apply to chest. 5. Amlodipine 10 mg daily. 6. Protonix 40 mg IV q. 12 hours. 6. The patient is getting 0.45% saline 150 mL an hour. 7. The patient is being seen and followed by Dr. Jarocho Bowser. 8. Repeat complex metabolic panel in the morning, magnesium in the morning, phosphorus in the morning, and CBC in the morning. In the meantime, we will continue present therapy. Supa Rose MD [facility] # [id number]
--- NOTE | 2017-05-10 00:02 | PN ---
DATE: NEUROLOGY PROGRESS NOTE SUBJECTIVE: The patient is lying in the bed on the ventilator, in no acute distress. PHYSICAL EXAMINATION VITAL SIGNS: Blood pressure is 114/58, heart rate is 72 per minute, breathing at a rate of 20 per minute, and temperature is 97.1 degrees Fahrenheit. HEENT: Head is normocephalic and atraumatic. NECK: Supple. There are no carotid bruits. LUNGS: Clear. CARDIOVASCULAR: S1 and S2 audible. No murmurs. ABDOMEN: Soft and nontender. Bowel sounds are present. NEUROLOGIC: Mental status: The patient is awake. He is not following any commands. Cranial nerve examination: Pupils are 7 mm bilaterally, nonreactive to light. They are earlier dilated with eyedrops. The patient's visual rodrigez appeared to be decreased bilaterally to threat. There is no obvious facial asymmetry, however, the patient does have a endotracheal tube. Motor examination: Tone is decreased more in the upper extremities than lower extremities. He withdraws his lower extremities to noxious stimuli, does not withdraw the upper extremities to noxious stimuli. Reflexes are absent. LABORATORY DATA: Reviewed shows WBC of 11.1, hemoglobin of 11.5, hematocrit of 33.4, and platelets of 232. His sodium is 150, potassium is 3.9, chloride is 119, carbon dioxide of 23, BUN of 89, creatinine of 2.4, and glucose of 101. IMPRESSION: 1. Cerebrovascular accident with bilateral watershed infarcts. 2. Respiratory failure. 3. Sepsis. 4. Renal failure. 5. Status post abdominal surgery. RECOMMENDATIONS: 1. The patient to have carotid Doppler studies. 2. The patient had an echocardiogram which did not show any evidence of thrombus. 3. The patient had another electroencephalogram which is abnormal consistent with severe bihemispheric cerebral dysfunction. 4. The patient had to be started on rectal aspirin if okay from surgical standpoint. 5. The patient to be continued on IV antibiotics because of his underlying sepsis. 6. Please continue supportive care and treatment. Thank you for the opportunity to participate in the care of this patient. Twila Rivera MD
--- NOTE | 2017-05-10 00:56 | EEG ---
ELECTROENCEPHALOGRAM REPORT DATE: INTRODUCTION: This is a digitally recorded EEG monitoring using standard EEG montages. BACKGROUND RHYTHM: The EEG shows a background activity of 3-4 Hz delta activity in parietooccipital region. The EEG activity is bilaterally symmetrical and synchronous. A small amount of myogenic artifact in this EEG recording. ABNORMAL POTENTIALS: No spike, sharp waves, or focal slowing was seen. PHOTIC STIMULATION AND HYPERVENTILATION: Photic stimulation did not reveal any abnormality. Hyperventilation was not performed. IMPRESSION: Abnormal electroencephalogram. The above findings are consistent with severe bihemispheric cerebral dysfunction. No epileptiform activity is seen in this electroencephalogram recording. Twila Rivera MD
[2017-05-10] MEDS: Albuterol-Ipratrop 3 mg / 0.5 (3 ml) UD IH SCH ×4 (02:01→20:00)
[2017-05-10] MEDS: NOREPINEPHRINE BIT/0.9 % NACL 4 MG/250 ML BAG IV PRN (02:36)
[2017-05-10] MEDS: diltiaZEM IVPB 100mg in NS 100 ML IV PRN ×2 (03:00→16:42)
--- NOTE | 2017-05-10 05:14 | CON ---
DATE: HISTORY OF PRESENT ILLNESS: Mr. Blancas is a 77-year-old white male who was asked to be seen for possible fungus in the retina. PHYSICAL EXAMINATION: GENERAL: The patient was nonresponsive. HEENT: The pupils were dilated with Kirk-Synephrine and Mydriacyl. The patient had well placed intraocular lens in both eyes. The fundus examination was normal. There was no evidence of any vitritis or any fungus infection. My assessment is that Mr. Blancas has an essentially normal eye examination. Joseph Montoya MD
[2017-05-10 05:45] LABS: ARTERIAL BLOOD GAS HCO3 24.5 mmol/L (21-28); ARTERIAL BLOOD GAS O2 CAPACITY 14.5 mL/dl (16-24); ARTERIAL BLOOD GAS O2 CONTENT 14.4 ML/dl (15-23); ARTERIAL BLOOD GAS PH 7.44 (7.35-7.45); HHB 0.9 % (0-5); METHEMOGLOBIN 1.1 % (0.0-3.0)
[2017-05-10 06:14] LABS: BASO # 0.04 K/mm3 (0.0-2.0); BASO % 0.3 % (0.0-3.0); EOS # 0.1 (0.0-0.7); EOS % 0.7 % (1.5-5.0); GRAN # 10.05 (1.4-6.5); GRAN % 82.3 % (50.0-68.0); HEMATOCRIT 33.4 % (42.0-52.0); LYMPH # 1.2 (1.2-3.4); LYMPH % 10.2 % (22.0-35.0); MEAN CELL VOLUME 95.2 fl (80.0-105.0); MEAN CORPUSCULAR HEMOGLOBIN 32.2 pg (25.0-35.0); MEAN CORPUSCULAR HGB CONC 33.8 g/dl (31.0-37.0); MEAN PLATELET VOLUME 10.1 fl (7.0-11.0); MONO # 0.8 (0.1-0.6); MONO % 6.5 % (1.0-6.0); RED CELL DISTRIBUTION WIDTH 16.1 % (11.5-14.5); WHITE BLOOD COUNT 12.2 10^3/ul (4.5-11.0)
[2017-05-10 06:15] LABS: ALB/GLOB RATIO 0.9 (1.1-1.8); BILIRUBIN,TOTAL 1.4 mg/dL (0.2-1.3); CALCIUM 7.3 mg/dL (8.4-10.5); PHOSPHOROUS 4.2 mg/dL (2.5-4.5); POTASSIUM 3.5 mmol/L (3.6-5.0); TOTAL PROTEIN 4.7 g/dL (5.8-8.3)
[2017-05-10] MEDS: Nitroglycerin 2% Ointment Foilpak UD TOP SCH ×4 (06:20→17:34)
--- NOTE | 2017-05-10 07:44 | PN ---
DATE: 05/09/2017 SUBJECTIVE: The patient is intubated. PHYSICAL EXAMINATION: VITAL SIGNS: Temperature is 97.5, pulse is 71, blood pressure is 134/55, respiratory rate is 26. GENERAL: The patient is lying in bed, flat, comfortable. HEENT: No oral lesion. Anicteric sclerae. Moist mucosa. NECK: No JVD, adenopathy, or thyromegaly. CARDIOVASCULAR: S1 and S2, regular. No murmurs, rubs, or gallops. LUNGS: Clear to auscultation bilaterally. No wheeze, rales, or rhonchi. ABDOMEN: Bowel sounds are positive, soft, nontender and nondistended. EXTREMITIES: No cyanosis, clubbing or edema. LABS: White count of 11.1, hemoglobin 11.5. Creatinine is 2.4, sodium is 150. Echocardiogram done shows LV is normal in size, EF is within the normal range. ASSESSMENT: 1. Septic shock. 2. Non-ST elevation myocardial infarction. 3. Respiratory failure, on ventilator. 4. Atrial fibrillation. 5. Transaminitis. 6. Cerebrovascular accident of the posterior parietal occipital lobe. 7. Hypernatremia. 8. Hypokalemia, improved. 9. Fall. PLAN: The patient remains critically ill, is in multi-organ failure. The patient has made some improvement. He was found to have yeast in the blood. He has been started on antifungal medications with micafungin. I spoke with ID regarding the case. The patient is also on Cardizem and is going to continue. His amiodarone is on hold because of the elevated LFTs. The patient is on sodium bicarbonate. I will discontinue the patient's sodium bicarbonate at this point. The patient's bicarbonate is normal and is starting to become hypernatremic. The patient's LFTs are starting to improve. I will place the patient on D5W and then reevaluate regarding fluid status. The patient had 3 L of volume that went in and output is 1580. The patient had 1300 in the Rosario. Overall prognosis is poor. He has no family. He remains to be a full code. His creatinine is improving, does not require dialysis. He does have a high phosphorus, this should improve with improvement in his creatinine. Jarocho Bowser MD
--- NOTE | 2017-05-10 09:11 | CP.PCM.PN ---
Subjective - Date & Time of Evaluation Date of Evaluation: 05/10/17 Time of Evaluation: 09:07 - Subjective Subjective: General Surgery: Dr Mccrary Pt seen and examined in ICU. No acute events overnight. Remains awake, but not alert. Unresponsive to verbal or painful stimulus. Pt is tolerating tube feeds at 30cc/hr. Objective - Vital Signs/Intake and Output Vital Signs (last 24 hours): Temp Pulse Resp BP Pulse Ox 99.1 F 134 H 24 150/81 97 05/10/17 04:00 05/10/17 06:00 05/10/17 07:30 05/10/17 06:00 05/10/17 07:30 Intake and Output: 05/10/17 05/10/17 06:59 18:59 Intake Total 1782 10 Balance 1782 10 - Medications Medications: Current Medications Albuterol/Ipratropium (Duoneb 3 Mg/0.5 Mg (3 Ml) Ud) 3 ml IH [id number] SILVIA Last Admin: 05/10/17 07:31 Dose: 3 ml Amlodipine Besylate (Norvasc) 10 mg PO DAILY SILVIA Last Admin: 05/03/17 10:25 Dose: Not Given Chlorhexidine Gluconate (Peridex) 15 ml PO BID SILVIA Last Admin: 05/09/17 18:00 Dose: 15 ml Hydralazine HCl (Apresoline) 10 mg IVP Q6 PRN PRN Reason: SBP> 160 Last Admin: 05/04/17 17:42 Dose: 10 mg Meropenem 1g/NS 100mL IVPB (Meropenem 1g/Ns 100ml Ivpb) 1 gm in 100 mls @ 100 mls/hr IVPB Q12 SILVIA PRN Reason: Protocol Stop: 05/13/17 10:16 Last Admin: 05/09/17 22:22 Dose: 100 mls/hr Amiodarone HCl/Dextrose (Nexterone 360 Mg In D5w 200 Ml (Premix)) 360 mg in 200 mls @ 33.333 mls/hr IV .Q6H SILVIA; 1 MG/MIN PRN Reason: Protocol Last Admin: 05/06/17 16:30 Dose: Not Given Fentanyl Citrate (Fentanyl Citrate/Sodium Chloride 1 Mg/100 Ml) 1,000 mcg in 100 mls @ 5 mls/hr IV .Q20H PRN; Protocol; 50 MCG/HR PRN Reason: TITRATE PER MD ORDER NOREPINEPHRINE BIT/0.9 % NACL (Levophed 4 Mg/ 250 Ml Ns Premixed) 4 mg in 250 mls @ 15 mls/hr IV .[id number] PRN; Protocol; 4 MCG/MIN PRN Reason: TITRATE PER MD ORDER Last Titration: 05/10/17 06:05 Dose: 0 mcg/min, 0 mls/hr Sodium Chloride (Sodium Chloride 0.9%) 1,000 mls @ 100 mls/hr IV .Q10H SILVIA Last Admin: 05/07/17 12:13 Dose: Not Given Dexmedetomidine HCl (Precedex 4 Mcg/Ml (100 Ml)) 400 mcg in 100 mls @ 4.264 mls /hr IV .[id number] PRN; Protocol; 0.2 MCG/KG/HR PRN Reason: Sedation Last Titration: 05/09/17 18:45 Dose: 0.2 mcg/kg/hr, 4.264 mls/hr diltiaZEM IVPB 100mg in NS (Cardizem 100mg In Ns) 100 mls @ 5 mls/hr IV .Q20H PRN; Protocol; 5 MG/HR PRN Reason: TITRATE PER MD ORDER Last Titration: 05/10/17 07:00 Dose: 5 mg/hr, 5 mls/hr Micafungin Sodium 100 mg/ (Sodium Chloride) 100 mls @ 100 mls/hr IV DAILY SILVIA PRN Reason: Protocol Last Admin: 05/09/17 10:47 Dose: 100 mls/hr Dextrose (Dextrose 5% In Water 1000 Ml) 1,000 mls @ 100 mls/hr IV .Q10H SILVIA Last Admin: 05/09/17 18:00 Dose: 100 mls/hr Metoprolol Tartrate (Lopressor) 5 mg IVP Q6H SILVIA Last Admin: 05/06/17 17:34 Dose: Not Given Midazolam HCl (Versed Inj) 4 mg IVP Q4H PRN PRN Reason: Agitation Last Admin: 05/06/17 04:40 Dose: 4 mg Morphine Sulfate (Morphine) 2 mg IVP Q3H PRN PRN Reason: Pain, severe (8-10) Last Admin: 05/10/17 04:53 Dose: 2 mg Nitroglycerin (Nitro-Bid 2% Oint) 1 ea TOP 0000,0600,1200,1800 [facility] Last Admin: 05/10/17 06:20 Dose: Not Given Pantoprazole Sodium (Protonix Inj) 40 mg IVP Q12 SILVIA Last Admin: 05/09/17 21:30 Dose: 40 mg Verapamil HCl (Verapamil Inj) 2.5 mg IVP Q6H PRN PRN Reason: for HEAT rate >130 - Labs Labs: 05/10/17 05:15 05/10/17 05:15 PT 19.0 SECONDS (9.4-12.5) H 05/09/17 06:40 INR 1.71 (0.93-1.08) H 05/09/17 06:40 APTT 32.9 Seconds (23.7-30.8) H 05/06/17 04:45 - Constitutional Appears: Chronically Ill - Eye Exam Additional comments: pt does not track movements or respond to stimulus - ENT Exam ENT Exam: Mucous Membranes Dry - Respiratory Exam Respiratory Exam: absent: Respiratory Distress - Cardiovascular Exam Cardiovascular Exam: REGULAR RHYTHM. absent: Tachycardia - GI/Abdominal Exam GI & Abdominal Exam: Soft. absent: Distended, Firm, Guarding, Rigid Additional comments: drain insertion site and midline incision c/d/i - Neurological Exam Neurological Exam: Awake. absent: Alert, Oriented x3 - Skin Skin Exam: Normal Color Assessment and Plan - Assessment and Plan (Free Text) Assessment: 77 M POD#6 s/p Exploratory laparotomy and Gastric wedge resection for perforated gastric ulcer -continue to titrate tube feeds towards goal via NGT -continue local wound care/dressing changes PRN -Will ARIAN Yarbrough (covering for Dr Mccrary) Julio Cesar, PGY3
--- NOTE | 2017-05-10 09:46 | PN ---
INSURANCE CLAIMS SUPERVISOR NOTE DATE: 05/10/2017 SUBJECTIVE: The patient is unresponsive on the ventilator with FiO2 of 35%. The patient did require Levophed overnight to stabilize his blood pressure, but that has been titrated off. We will continue with aggressive pulmonary toilet, continue with bronchodilators. The patient is getting IV fluids as well. PHYSICAL EXAMINATION: VITAL SIGNS: Note that his temperature is 99.1, his pulse is 77, respirations are 22, and BP is 110/78. SKIN: Warm and dry. HEENT: Head is atraumatic and normocephalic. Ears, nose, and throat seem to be within normal limits. NECK: Supple. No JVD. No thyroid enlargement. No lymph nodes. HEART: Regular rate and rhythm. Normal S1 and S2. LUNGS: Reveal mild rhonchi bilaterally. ABDOMEN: Soft, nontender, decreased bowel sounds. GENITALIA: Deferred. RECTAL: Deferred. MUSCULOSKELETAL: No joint deformities. EXTREMITIES: Reveal positive lower extremity edema. NEUROLOGIC: He is unresponsive on the ventilator at this time. LABORATORY DATA: Reveal a white count of 12.2; hemoglobin of 11.3; hematocrit 33.4 with platelets of 189,000. The patient's arterial blood gas reveals a pH of 7.44, PCO2 of 36, PO2 of 111. Sodium is 147, potassium 3.5, chloride 113, CO2 of 24 with a BUN of 85, creatinine of 2.1, and a glucose of 171. The patient continues to have elevated LFTs. As far as chest x-ray, is pending. IMPRESSION: The patient has respiratory failure with a history of chronic obstructive pulmonary disease. It is noted that he does have fungemia and multiorgan failure and status post gastric perforation and repair. He has a history of cerebrovascular accident, renal insufficiency, and shock liver. PLAN: We will continue with ventilator support and monitor closely. We will continue with bronchodilators as well as sedative medications. The patient will get antibiotics and we will follow his arterial blood gas as well. We will continue to treat aggressively along with the other consultants and the primary care doctor. Ramos Briones MD
[2017-05-10] MEDS: Chlorhexidine 0.12% Oral Sol 480 ml Bot PO SCH (10:00)
[2017-05-10] MEDS: Micafungin 100 MG in Sodium Chloride 0.9% 100 ML IV SCH (10:12)
[2017-05-10] MEDS: Meropenem 1g/NS 100mL IVPB 1 GM/100 ML PIGGYBACK IVPB SCH ×2 (10:17→22:50)
--- NOTE | 2017-05-10 10:19 | PN ---
DATE: 05/10/2017 SUBJECTIVE: The patient is in bed, in no acute distress, nontoxic. OBJECTIVE: VITAL SIGNS: On exam, the patient remains intubated, poorly responsive with a temperature of 99, blood pressure is 150/80, respiratory rate on a vent and heart rate of 120. EXAMINATION OF HEENT: Reveals ET tube in place. NECK: Supple. LUNGS: Have decreased breath sounds. HEART EXAM: Normal S1 and S2. ABDOMINAL EXAMINATION: Soft and nontender. LABORATORY EXAMINATION: Reveals a white count of 12,200; hemoglobin of 11 and platelets of 189. Coagulation is noted. Chemistries reveal a BUN of 85, creatinine of 2.1, alk phos is 1517, bilirubin is 1.4. Urinalysis is noted and stool occult blood is positive. Serology is negative for hepatitis profile. Microbiology reveals there is Chandrika glabrata in the blood cultures. Repeat blood cultures are negative. Sensitivity of the Chandrika glabrata is pending. REVIEW OF ORDERS: Reveals the patient to be on meropenem which requires renewal, which I will do so. The patient is also on Mycamine. ASSESSMENT AND PLAN: A 77-year-old male with septic shock, cardiogenic shock, respiratory failure, intubated on a ventilator, acute liver shock, status post perforated gastric ulcer, status post exploratory laparotomy, gastric wedge resection and drainage of a colonic abscess, postprocedure day #6, now with septic shock with Chandrika glabrata fungemia. Repeat blood cultures now are negative and one bottle was positive for Chandrika glabrata blood cultures. The patient also with healthcare-associated pneumonia, bacterial, Gram-positive versus Gram-negative and new MRI findings of extensive infarction, both cerebral and cerebellar hemisphere. Currently on Mycamine and meropenem and repeat echo from yesterday reveals no evidence of vegetations. Lines have been changed. The patient should have an ophthalmology examination because of the fungemia and we are awaiting for the sensitivity of the Chandrika glabrata. Significant amount of Chandrika glabrata will be resistant to fluconazole and azole in general. We will continue the present regimen. Overall prognosis is quite poor for this patient. We will follow with you. Dinesh Rosario MD
--- NOTE | 2017-05-10 11:01 | RAD ---
HISTORY: COPD COMPARISON: 05/09/2017 FINDINGS: LUNGS: There is no significant change in the hazy bilateral lower lobe infiltrate. Endotracheal tube and nasogastric tube remains in satisfactory position PLEURA: No significant pleural effusion identified, no pneumothorax apparent. CARDIOVASCULAR: Normal. OSSEOUS STRUCTURES: No significant abnormalities. VISUALIZED UPPER ABDOMEN: Normal. OTHER FINDINGS: None. IMPRESSION: There is no significant change in the hazy bilateral lower lobe infiltrate. Endotracheal tube and nasogastric tube remains in satisfactory position
--- NOTE | 2017-05-10 15:22 | PN ---
DATE: 05/10/2017 SUBJECTIVE: The patient is intubated. He does open his eyes. PHYSICAL EXAMINATION: VITAL SIGNS: Temperature is 98.6, pulse is 80, blood pressure is 134/65, respiratory rate is 24. GENERAL: The patient is lying in bed, flat, comfortable. HEENT: No oral lesion. Anicteric sclerae. Moist mucosa. NECK: No JVD, adenopathy, or thyromegaly. CARDIOVASCULAR: S1 and S2, regular. No murmurs, rubs, or gallops. LUNGS: Clear to auscultation bilaterally. No wheeze, rales, or rhonchi. ABDOMEN: Bowel sounds are positive, soft, nontender and nondistended. EXTREMITIES: No cyanosis, clubbing or edema. LABS: White count of 12.2, hemoglobin 11.3. Creatinine is 2.1, potassium is 3.5. ASSESSMENT: 1. Sepsis, improving. 2. Non-ST elevation myocardial infarction. 3. Septic shock, improving. 4. Atrial fibrillation. 5. Transaminitis. 6. Cerebrovascular accident with posterior parietal lobe involvement. 7. Hypernatremia, improved. 8. Hypokalemia, improved. 9. Fall. 10. Fungemia. PLAN: The patient blood work does show improvement in his sodium. He was placed on D5W. The patient is going to continue on his D5W. The patient is receiving meropenem for antibiotic. He is going continue with Morphine as needed. The patient is on micafungin for his fungemia. The patient has carotid artery Dopplers that are done and pending. The patient is on feedings at 30 mL an hour. The patient's acute kidney injury is improving as well. Jarocho Bowser MD
--- NOTE | 2017-05-10 16:41 | PN ---
DATE: 05/10/2017 LOCATION: The patient in [facility], bed 4 REASON FOR CONSULTATION AND FOLLOWUP: Status post acute abdomen, status post perforation of hollow viscus, status post bilateral massive stroke, possibly secondary to hypotension, rule out anoxic encephalopathy, status post exploratory laparotomy, paroxysmal atrial fibrillation, and history of coronary artery disease. SUBJECTIVE: The patient still on respirator. PHYSICAL EXAMINATION: VITAL SIGNS: Blood pressure 134/65, the patient is on respirator, pulse is 80, temperature 98.6. HEENT: Head is normocephalic. Eyes pupils normal, conjunctiva slightly pale. NECK: JVP low, carotid equal, thorax and AP diameter normal. LUNGS: No significant rales. CARDIOVASCULAR: S1 and S2. ABDOMEN: Surgery as mentioned exploratory laparotomy for repair of hollow viscus. LABORATORY DATA: WBC 12.2, hemoglobin 11.3, hematocrit 33.4, and platelets 189. Sodium 147, potassium 3.5, BUN 85, creatinine 2.1, total bilirubin 1.4, AST 851, ALT 1517, which are decreasing as compared to before. Total protein 4.7, albumin 2.2. DIAGNOSES: 1. Initially the patient has hyponatremia then yesterday blood count showed hypernatremia, but today's blood culture showed normal sodium. 2. Non-ST segment elevation myocardial infraction. 3. Gastrointestinal bleeding. 4. Perforation of hollow viscus. 5. Status post emergency exploratory laparotomy with resection part of the stomach as well as partial colon removal. 6. Postoperative the patient with massive bilateral stroke consistent with possible episode of hypotension. 7. Paroxysmal atrial fibrillation with flutter. 8. Protein-calorie malnutrition. 9. Anemia. 10. Hypokalemia. 11. Renal dysfunction. 12. Hepatic dysfunction. PLAN: 1. The patient is on Cardizem drip. 2. Amiodarone cannot put on because of hepatic dysfunction. 3. Metoprolol 5 mg IV q.6 hours, which is also on hold at present. 4. Meropenem 1 g IV q.12 hours. 5. Hydralazine 10 mg IV p.r.n. q.6 hourly for high blood pressure. 6. Amlodipine 10 mg daily, but that is also on hold. 7. Verapamil 2.5 mg IV p.r.n. q.6 hourly. 8. Protonix 40 mg IV q.12 hour. 9. We will have repeat labs in the morning. We will follow with you. Supa Rose MD
[2017-05-10] MEDS ORDERED: Potassium Chloride 20 mEq/15 ml LIQ UD PO STA (21:47)
[2017-05-11] MEDS: Nitroglycerin 2% Ointment Foilpak UD TOP SCH ×4 (00:35→18:27)
--- NOTE | 2017-05-11 00:42 | PN ---
SUBJECTIVE: This patient was seen and evaluated earlier today. The patient still remains on the vent. PHYSICAL EXAMINATION: VITAL SIGNS: Temperature is 99.2, blood pressure is 104/49, pulse 83 and O2 saturation 95%. HEENT: Atraumatic. The patient is on vent. NECK: Supple. HEART: S1 and S2 heard. LUNGS: Bilateral air entry present. ABDOMEN: Soft. There is laparotomy scar noticed. EXTREMITIES: No cyanosis. No clubbing. LABORATORY DATA: Hemoglobin 11.3, hematocrit 33.4, WBC 12.2 and platelets 189. LFT shows a downward trend, the AST have come to down to 851, ALT has come down to 1517, BUN 85 and creatinine 2.1. IMPRESSION: 1. This 77-year-old patient status post laparotomy for duodenal gastric ulcer, perforation, status post wedge resection and repair. Hemoglobin now presently stable. Started on diet with NG tube feeding. 2. The patient is status post cerebrovascular disease. 3. Respiratory failure, on ventilator. 4. The patient's shock liver clinically improving. 5. Sepsis. 6. Fungemia. 7. Continue the antibiotics as per ID. Thank you very much for allowing us to participate in the care of the patient. Matthew Lemus MD
[2017-05-11] MEDS: Albuterol-Ipratrop 3 mg / 0.5 (3 ml) UD IH SCH ×4 (01:30→19:42)
[2017-05-11 05:49] LABS: ARTERIAL BLOOD GAS HCO3 24.9 mmol/L (21-28); ARTERIAL BLOOD GAS O2 CAPACITY 15.1 mL/dl (16-24); ARTERIAL BLOOD GAS O2 CONTENT 14.9 ML/dl (15-23); ARTERIAL BLOOD GAS PH 7.46 (7.35-7.45); ARTERIAL BLOOD HGB O2 SAT 95.1 % (95.0-98.0); CARBOXYHEMOGLOBIN 2.3 % (0.5-1.5); HHB 1.2 % (0-5); METHEMOGLOBIN 1.4 % (0.0-3.0)
[2017-05-11 06:18] LABS: BASO # 0.03 K/mm3 (0.0-2.0); BASO % 0.2 % (0.0-3.0); EOS # 0.1 (0.0-0.7); EOS % 0.6 % (1.5-5.0); GRAN # 11.61 (1.4-6.5); GRAN % 86.3 % (50.0-68.0); HEMATOCRIT 32.2 % (42.0-52.0); LYMPH % 7.1 % (22.0-35.0); MEAN CELL VOLUME 96.7 fl (80.0-105.0); MEAN CORPUSCULAR HEMOGLOBIN 32.4 pg (25.0-35.0); MEAN CORPUSCULAR HGB CONC 33.5 g/dl (31.0-37.0); MEAN PLATELET VOLUME 10.5 fl (7.0-11.0); MONO # 0.8 (0.1-0.6); MONO % 5.8 % (1.0-6.0); RED CELL DISTRIBUTION WIDTH 15.9 % (11.5-14.5); WHITE BLOOD COUNT 13.5 10^3/ul (4.5-11.0)
[2017-05-11 06:56] LABS: ALB/GLOB RATIO 0.8 (1.1-1.8); BILIRUBIN,TOTAL 1.4 mg/dL (0.2-1.3); CALCIUM 7.3 mg/dL (8.4-10.5); MAGNESIUM 1.9 mg/dL (1.7-2.2); PHOSPHOROUS 3.9 mg/dL (2.5-4.5); POTASSIUM 3.6 mmol/L (3.6-5.0); TOTAL PROTEIN 4.7 g/dL (5.8-8.3)
[2017-05-11] MEDS: Chlorhexidine 0.12% Oral Sol 480 ml Bot PO SCH ×5 (08:28→18:30)
--- NOTE | 2017-05-11 08:34 | CP.PCM.PN ---
Subjective - Date & Time of Evaluation Date of Evaluation: 05/11/17 Time of Evaluation: 08:27 - Subjective Subjective: General Surgery - Dr. Mccrary (Dr. Yarbrough covering) Pt. S&E. No acute changes. Intubated, on vent, withdraws to painful stimuli. Tube feeds started on Thursday and currently at goal thru ngt. Abimael drain in RLQ with serous drainage. Objective - Vital Signs/Intake and Output Vital Signs (last 24 hours): Temp Pulse Resp BP Pulse Ox 99.1 F 118 H 22 136/63 92 L 05/11/17 04:00 05/11/17 06:00 05/11/17 06:00 05/11/17 06:00 05/11/17 06:00 Intake and Output: 05/11/17 05/11/17 06:59 18:59 Intake Total 2425 Output Total 850 Balance 1575 - Medications Medications: Current Medications Albuterol/Ipratropium (Duoneb 3 Mg/0.5 Mg (3 Ml) Ud) 3 ml IH I2TRURY SILVIA Last Admin: 05/11/17 07:45 Dose: 3 ml Amlodipine Besylate (Norvasc) 10 mg PO DAILY SILVIA Last Admin: 05/03/17 10:25 Dose: Not Given Chlorhexidine Gluconate (Peridex) 15 ml PO BID SILVIA Last Admin: 05/10/17 10:00 Dose: 15 ml Hydralazine HCl (Apresoline) 10 mg IVP Q6 PRN PRN Reason: SBP> 160 Last Admin: 05/04/17 17:42 Dose: 10 mg Meropenem 1g/NS 100mL IVPB (Meropenem 1g/Ns 100ml Ivpb) 1 gm in 100 mls @ 100 mls/hr IVPB Q12 SILVIA PRN Reason: Protocol Stop: 05/13/17 10:16 Last Admin: 05/10/17 22:50 Dose: 100 mls/hr Amiodarone HCl/Dextrose (Nexterone 360 Mg In D5w 200 Ml (Premix)) 360 mg in 200 mls @ 33.333 mls/hr IV .Q6H SILVIA; 1 MG/MIN PRN Reason: Protocol Last Admin: 05/06/17 16:30 Dose: Not Given NOREPINEPHRINE BIT/0.9 % NACL (Levophed 4 Mg/ 250 Ml Ns Premixed) 4 mg in 250 mls @ 15 mls/hr IV .[id number] PRN; Protocol; 4 MCG/MIN PRN Reason: TITRATE PER MD ORDER Last Titration: 05/10/17 06:05 Dose: 0 mcg/min, 0 mls/hr Sodium Chloride (Sodium Chloride 0.9%) 1,000 mls @ 100 mls/hr IV .Q10H [facility] Last Admin: 05/07/17 12:13 Dose: Not Given Dexmedetomidine HCl (Precedex 4 Mcg/Ml (100 Ml)) 400 mcg in 100 mls @ 4.264 mls /hr IV .[id number] PRN; Protocol; 0.2 MCG/KG/HR PRN Reason: Sedation Last Titration: 05/10/17 19:00 Dose: 0.4 mcg/kg/hr, 8.528 mls/hr diltiaZEM IVPB 100mg in NS (Cardizem 100mg In Ns) 100 mls @ 5 mls/hr IV .Q20H PRN; Protocol; 5 MG/HR PRN Reason: TITRATE PER MD ORDER Last Titration: 05/10/17 17:37 Dose: 5 mg/hr, 5 mls/hr Micafungin Sodium 100 mg/ (Sodium Chloride) 100 mls @ 100 mls/hr IV DAILY SILVIA PRN Reason: Protocol Last Admin: 05/10/17 10:12 Dose: 100 mls/hr Dextrose (Dextrose 5% In Water 1000 Ml) 1,000 mls @ 100 mls/hr IV .Q10H [facility] Last Admin: 05/10/17 23:30 Dose: 100 mls/hr Metoprolol Tartrate (Lopressor) 5 mg IVP Q6H [facility] Last Admin: 05/06/17 17:34 Dose: Not Given Midazolam HCl (Versed Inj) 4 mg IVP Q4H PRN PRN Reason: Agitation Last Admin: 05/06/17 04:40 Dose: 4 mg Morphine Sulfate (Morphine) 2 mg IVP Q3H PRN PRN Reason: Pain, severe (8-10) Last Admin: 05/10/17 04:53 Dose: 2 mg Nitroglycerin (Nitro-Bid 2% Oint) 1 ea TOP 0000,0600,1200,1800 [facility] Last Admin: 05/11/17 05:10 Dose: Not Given Pantoprazole Sodium (Protonix Inj) 40 mg IVP Q12 [facility]IL[facility]IA Last Admin: 05/10/17 22:03 Dose: 40 mg Verapamil HCl (Verapamil Inj) 2.5 mg IVP Q6H PRN PRN Reason: for HEAT rate >130 - Labs Labs: 05/11/17 05:20 05/11/17 05:20 PT 19.0 SECONDS (9.4-12.5) H 05/09/17 06:40 INR 1.71 (0.93-1.08) H 05/09/17 06:40 APTT 32.9 Seconds (23.7-30.8) H 05/06/17 04:45 - Constitutional Appears: No Acute Distress - Head Exam Head Exam: ATRAUMATIC, NORMAL INSPECTION, NORMOCEPHALIC - Eye Exam Additional comments: dilated - Cardiovascular Exam Cardiovascular Exam: Irregular Rhythm (afib) - GI/Abdominal Exam GI & Abdominal Exam: Soft. absent: Distended Additional comments: surgical incision c/d/i with angela abimael drain w/ serous drainage - Neurological Exam Neurological Exam: absent: Alert, Awake - Skin Skin Exam: Dry, Intact Assessment and Plan - Assessment and Plan (Free Text) Assessment: 77 M POD#7 s/p Ex-lap w. Gastric wedge resection for perforated ulcer, with post -op b/l infarcts -Tube feeds to goal via NGT -Social work still in process of trying to find family for decision making -No further surgical intervention -Will continue to follow ARIAN Yarbrough (covering for Dr. Alex Cash PGY3
[2017-05-11] MEDS ORDERED: Potassium Chloride 20 mEq/15 ml LIQ UD PO STA (08:49)
--- NOTE | 2017-05-11 10:06 | PN ---
SUBJECTIVE: The patient is intubated. PHYSICAL EXAMINATION: VITAL SIGNS: Temperature is 99.1, pulse of 118, blood pressure 136/62, respirations 22. GENERAL: The patient is lying in bed, flat, comfortable. HEENT: No oral lesion. Anicteric sclerae. Moist mucosa. NECK: No JVD, adenopathy, or thyromegaly. CARDIOVASCULAR: S1 and S2, regular. No murmurs, rubs, or gallops. LUNGS: Clear to auscultation bilaterally. No wheeze, rales, or rhonchi. ABDOMEN: Bowel sounds are positive, soft, nontender and nondistended. EXTREMITIES: No cyanosis, clubbing or edema. LABS: White count of 13.5, hemoglobin 10.8, creatinine is 1.8. ASSESSMENT: 1. Sepsis, improving. 2. Non-ST elevation myocardial infarction. 3. Septic shock. 4. Atrial fibrillation. 5. Transaminitis, improving. 6. Cerebrovascular accident with posterior parietal lobe involvement. 7. Hypernatremia, improved. 8. Hypokalemia, improved. 9. Fungemia. 10. Fall. PLAN: The patient's creatinine is continued to improve, it is 1.8. The patient's LFTs improved significantly as well. The hemoglobin is stable at 10.8. He is going to continue on his fluids. His chemistry shows that his sodium is 147. The patient is on morphine for pain. He is receiving Protonix daily. He is on meropenem for antibiotics and also micafungin. Repeat blood work tomorrow. He remains critically ill in the ICU. Jarocho Bowser MD
--- NOTE | 2017-05-11 10:08 | CON ---
PROGRESS NOTE DATE: 05/09/2017 SUBJECTIVE: This patient was seen and evaluated earlier, discussed with the nursing staff. The patient is still on vent and the patient is getting water through the NG tube, tolerating. No further episodes of melena. PHYSICAL EXAMINATION VITAL SIGNS: Temperature is 97.1, blood pressure 114/58, respiration 24 and oxygen saturation 96%. HEENT: Atraumatic and anicteric. NECK: Supple. HEART: S1 and S2 heard. LUNGS: Bilateral air entry present. ABDOMEN: Soft. Surgical incision noticed. EXTREMITIES: No cyanosis or clubbing. LABORATORY DATA: Hemoglobin 11.5, hematocrit 33.4, WBC 11.1 and platelets 232. Chemistry, BUN 89, creatinine 2.4, sodium 150, and potassium 3.9. AST significantly improved, 1395, ALT 2232, and alkaline phosphatase 133. INR 1.71. IMPRESSION: Status post laparotomy and gastric wedge resection repair of his perforated gastric ulcer, status post gastrointestinal bleeding, respiratory failure, status post cerebrovascular accident, shock liver. liver function tests improving. PLAN: 1. Continue NG tube feeding as per Surgery. 2. The patient is presently on Protonix IV q. 12 hourly. We will continue that. 3. The patient has fungemia, on Mycamine, history of pneumonia, on imipenem. Continue the antibiotics as per ID. 4. Acute kidney injury. Thank you very much for allowing us to participate in the care of the patient. We will continue to closely follow up and suggest further recommendations based on the clinical course. Matthew Lemus MD
[2017-05-11] MEDS: Micafungin 100 MG in Sodium Chloride 0.9% 100 ML IV SCH (10:24)
[2017-05-11] MEDS: Meropenem 1g/NS 100mL IVPB 1 GM/100 ML PIGGYBACK IVPB SCH ×2 (10:25→22:03)
--- NOTE | 2017-05-11 11:10 | PN ---
DATE: 05/11/2017 REASON FOR CONSULTATION AND FOLLOWUP: Status post acute abdomen, status post gastric perforation, status post wedge resection repair, hypotension, paroxysmal atrial fibrillation, and rule out anoxic encephalopathy. SUBJECTIVE: The patient remains on vent, paroxysmal atrial fibrillation, the patient was in sinus, now reverted back to AFib, comatose, and not responding to verbal stimuli. OBJECTIVE: GENERAL: The patient remains on vent, comatose, and not responding to verbal stimuli. VITAL SIGNS: Temperature afebrile, heart rate 98, and blood pressure 133/44. HEENT: PERRLA. Extraocular muscles intact. NECK: Supple. No carotid bruits or thyromegaly. CHEST: Clear to auscultation. HEART: S1 and S2 regular. ABDOMEN: Soft. EXTREMITIES: Clubbing and cyanosis negative. LABORATORY DATA: Blood workup as follows: WBC 13.5, hemoglobin 10.8, hematocrit 32.2, and platelet count 186. Chemistry shows sodium 147, potassium 3.6, chloride 114, carbon dioxide of 27, anion gap of 10, BUN 78, and creatinine 1.8. AST 445, trending down; ALT 1088, total protein 4.7, albumin 2.1, and albumin-globulin ratio 0.8. IMPRESSION: Severe protein-calorie malnutrition, which was not present on admission, status post black tarry stool melena, status post gastric perforation, status post perforation of hollow viscus, status post repair, non-ST segment myocardial infarction, hyponatremia, and paroxysmal atrial fibrillation. Hyponatremia resolved; status post respiratory failure, intubated; gastrointestinal bleed, status post emergency exploratory laparotomy, postoperatively possibly massive bilateral stroke consistent with possible episode of hypotension, anoxic encephalopathy, and renal insufficiency. RECOMMENDATIONS: Since the patient is on NG tube, we will start Cardizem. Abnormal LFTs, avoid liver function improves. Continue verapamil 2.5 mg daily. Continue broad-spectrum antibiotic, continue vent management, if prolonged intubation is expected because of the patient's condition consider PEG and trach. high risk because of underlying comorbidity, but risk and benefit ratio in favor of the patient to have the tracheostomy and PEG. We will supplement KCl elixir and also start IV Cardizem p.o. and change from IV. We will discontinue the Cardizem 1 hour after the first p.o. dose. We will follow with you. Thank you Dr. Bowser for providing me the opportunity in taking care of patient, Lyndon Blancas. Supa Nick MD
--- NOTE | 2017-05-11 11:16 | RAD ---
HISTORY: Intubated, ET tube position COMPARISON: 05/10/2017 FINDINGS: LUNGS: Bilateral lower lobe infiltrates unchanged. Endotracheal and nasogastric tubes unchanged PLEURA: No significant pleural effusion identified, no pneumothorax apparent. CARDIOVASCULAR: Normal. OSSEOUS STRUCTURES: No significant abnormalities. VISUALIZED UPPER ABDOMEN: Normal. OTHER FINDINGS: None. IMPRESSION: Bilateral lower lobe infiltrates unchanged. Endotracheal and nasogastric tubes unchanged
--- NOTE | 2017-05-11 11:25 | CP.CCUPN ---
<Colton Guidry - Last Filed: 05/11/17 13:02> CCU Subjective - Physician Review Subjective (Free Text): 05/11/17 11:16 Colton Guidry D.O. PGY-2, Critical Care Progress Note 77 year old male with PMH of COPD, HTN, hyperglycemia, who presented to [facility] on 04[place]/17. Patient is intubated and although he is awake and somewhat alert, he is unable to follow commands and thus information could not be obtained from him. Overnight patient had some issues with systolic blood pressures coming down in the 70s-80s. CCU Objective - Vital Signs / Intake & Output Vital Signs (Last 4 hours): Vital Signs Pulse BP 05/11/17 10:23 96 H 152/87 H Intake and Output (Last 8hrs): Intake & Output 05/10/17 05/11/17 05/11/17 22:59 06:59 14:59 Intake Total 71 2425 Output Total 850 Balance 71 1575 Intake: IV 71 1405 Left Upper arm 145 Right Hand 1260 Tube Feeding 720 Other 300 Output: Drainage 100 Right Abdomen 100 Urine 700 Urethral ([place]) 700 Stool 50 - Physical Exam Head: Positive for: Atraumatic, Normocephalic Pupils: Positive for: Other (dilated ~7mm BL, reactive L>R). Negative for: Non- Reactive, Pinpoint Extroacular Muscles: Positive for: Other (not following commands) Conjunctiva: Positive for: Normal. Negative for: Injected, Icteric Mouth: Positive for: Moist Mucous Membranes, Normal Lips, Normal Tounge Nose (External): Positive for: Atraumatic. Negative for: Abrasion, Contusion, Laceration Neck: Positive for: Trachea Midline. Negative for: JVD, Lymphadenopathy Respiratory/Chest: Positive for: Clear to Auscultation, Good Air Exchange, Other (intubated). Negative for: Respiratory Distress, Wheezes, Rales, Rhonchi Cardiovascular: Positive for: Regular Rate and Rhythm, Normal S1, S2. Negative for: Murmurs, Tachycardic, Bradycardic, Rub, Gallop Abdomen: Positive for: Tenderness, Other (surgical dressing midline c/d/i, gastric tube ). Negative for: Distention, Peritoneal Signs Genitourinary Male: Positive for: Normal External Genitalia, Other ([place] catheter in place ) Upper Extremity: Positive for: Normal Inspection, NORMAL PULSES. Negative for: Cyanosis, Edema, Swelling, Erythema, Deformity Lower Extremity: Positive for: Normal Inspection, NORMAL PULSES. Negative for: Edema, CALF TENDERNESS, Cyanosis, Tenderness, Erythema, Deformity, Capillary Refill < 2 s Neurological: Positive for: Other (intubated, opens eyes to verbal stimuli, unable to follow commands, corneal reflex present, pupils sluggish and slightly reactive ) Skin: Positive for: Warm, Dry, Normal Color. Negative for: Rashes - Medications Active Medications: Active Medications Generic Name Dose Route Start Last Admin Trade Name Freq PRN Reason Stop Dose Admin Albuterol/Ipratropium 3 ml 05/06/17 14:00 05/11/17 07:45 Duoneb 3 Mg/0.5 Mg (3 Ml) Ud IH 3 ml [id number] SILVIA Administration Amlodipine Besylate 10 mg 05/01/17 12:45 05/03/17 10:25 Norvasc PO Not Given DAILY SILVIA Chlorhexidine Gluconate 15 ml 05/05/17 11:00 05/10/17 10:00 Peridex PO 15 ml BID SILVIA Administration Diltiazem HCl 60 mg 05/11/17 10:00 05/11/17 10:23 Cardizem PO 60 mg QID SILVIA Administration Hydralazine HCl 10 mg 05/01/17 02:36 05/04/17 17:42 Apresoline IVP 10 mg Q6 PRN Administration SBP> 160 Meropenem 1g/NS 100mL IVPB 1 gm in 100 mls @ 100 mls/hr 05/05/17 10:15 10:25 Meropenem 1g/Ns 100ml Ivpb IVPB 05/13/17 10:16 100 mls/hr Q12 SILVIA Administration Protocol Dexmedetomidine HCl 400 mcg in 100 mls @ 4.264 mls/hr 05/07/17 11:22 19:00 Precedex 4 Mcg/Ml (100 Ml) IV 0.4 mcg/kg/hr .[id number] PRN 8.528 mls/hr Sedation Titration Protocol 0.2 MCG/KG/HR Micafungin Sodium 100 mg/ 100 mls @ 100 mls/hr 05/08/17 10:00 05/11/17 10:24 Sodium Chloride IV 100 mls/hr DAILY SILVIA Administration Protocol Dextrose 1,000 mls @ 100 mls/hr 05/09/17 17:30 05/10/17 23:30 Dextrose 5% In Water 1000 Ml IV 100 mls/hr .Q10H SILVIA Administration Midazolam HCl 4 mg 05/04/17 18:44 05/06/17 04:40 Versed Inj IVP 4 mg Q4H PRN Administration Agitation Morphine Sulfate 2 mg 05/06/17 12:35 05/10/17 04:53 Morphine IVP 2 mg Q3H PRN Administration Pain, severe (8-10) Nitroglycerin 1 ea 05/02/17 00:00 05/11/17 05:10 Nitro-Bid 2% Oint TOP Not Given 0000,0600,1200,1800 SILVIA Pantoprazole Sodium 40 mg 05/06/17 10:00 05/11/17 10:27 Protonix Inj IVP 40 mg Q12 SILVIA Administration - Patient Studies Lab Studies: Microbiology Studies 05/07/17 11:45 Blood Culture - Preliminary Blood NO GROWTH AFTER 3 DAYS 05/07/17 11:30 Blood Culture - Preliminary Blood NO GROWTH AFTER 3 DAYS 05/06/17 10:50 Blood Culture - Final Blood-Venous Chandrika Glabrata Gram Stain - Final Lab Studies 05/11/17 05/11/17 05/11/17 Range/Units 05:40 05:20 05:20 WBC 13.5 H (4.5-11.0) 10^3/ul RBC 3.33 L (3.5-6.1) 10^6/uL Hgb 10.8 L (14.0-18.0) g/dL Hct 32.2 L (42.0-52.0) % MCV 96.7 (80.0-105.0) fl MCH 32.4 (25.0-35.0) pg MCHC 33.5 (31.0-37.0) g/dl RDW 15.9 H (11.5-14.5) % Plt Count 186 (120.0-450.0) 10^3/uL MPV 10.5 (7.0-11.0) fl Gran % 86.3 H (50.0-68.0) % Lymph % (Auto) 7.1 L (22.0-35.0) % [place] % (Auto) 5.8 (1.0-6.0) % Eos % (Auto) 0.6 L (1.5-5.0) % Baso % (Auto) 0.2 (0.0-3.0) % Gran # 11.61 H (1.4-6.5) Lymph # 1.0 L (1.2-3.4) [place] # 0.8 H (0.1-0.6) Eos # 0.1 (0.0-0.7) Baso # 0.03 (0.0-2.0) K/mm3 pCO2 35 (35-45) mm/Hg pO2 102.0 H (80-100) mm/Hg HCO3 24.9 (21-28) mmol/L ABG pH 7.46 H (7.35-7.45) ABG Total CO2 26.0 (22-28) mmol.L ABG O2 Saturation 98.8 H (95-98) % ABG O2 Content 14.9 L (15-23) ML/dl ABG Base Excess 1.3 (-2.0-3.0) mmol/L ABG Hemoglobin 11.0 L (11.7-17.4) g/dL ABG Carboxyhemoglobin 2.3 H (0.5-1.5) % POC ABG HHb (Measured) 1.2 (0-5) % ABG Methemoglobin 1.4 (0.0-3.0) % ABG O2 Capacity 15.1 L (16-24) mL/dl Hgb O2 Saturation 95.1 (95.0-98.0) % FiO2 35.0 % Sodium 147 (132-148) mmol/L Potassium 3.6 (3.6-5.0) mmol/L Chloride 114 H (98-107) mmol/L Carbon Dioxide 27 (21-33) mmol/L Anion Gap 10 (10-20) BUN 78 H (7-21) mg/dL Creatinine 1.8 H (0.8-1.5) mg/dL Est GFR ( Amer) 45 Est GFR (Non-Af Amer) 37 Random Glucose 123 H (70-110) mg/dL Calcium 7.3 L (8.4-10.5) mg/dL Phosphorus 3.9 (2.5-4.5) mg/dL Magnesium 1.9 (1.7-2.2) mg/dL Total Bilirubin 1.4 H (0.2-1.3) mg/dL AST 445 H D (17-59) U/L ALT 1088 H (7-56) U/L Alkaline Phosphatase 119 (38-126) U/L Total Protein 4.7 L (5.8-8.3) g/dL Albumin 2.1 L (3.0-4.8) g/dL Globulin 2.6 gm/dL Albumin/Globulin Ratio 0.8 L (1.1-1.8) Laboratory Results - last 24 hr 05/11/17 05/11/17 05/11/17 05:20 05:20 05:40 WBC 13.5 H RBC 3.33 L Hgb 10.8 L Hct 32.2 L MCV 96.7 MCH 32.4 MCHC 33.5 RDW 15.9 H Plt Count 186 MPV 10.5 Gran % 86.3 H Lymph % (Auto) 7.1 L [place] % (Auto) 5.8 Eos % (Auto) 0.6 L Baso % (Auto) 0.2 Gran # 11.61 H Lymph # 1.0 L [place] # 0.8 H Eos # 0.1 Baso # 0.03 pCO2 35 pO2 102.0 H HCO3 24.9 ABG pH 7.46 H ABG Total CO2 26.0 ABG O2 Saturation 98.8 H ABG O2 Content 14.9 L ABG Base Excess 1.3 ABG Hemoglobin 11.0 L ABG Carboxyhemoglobin 2.3 H POC ABG HHb (Measured) 1.2 ABG Methemoglobin 1.4 ABG O2 Capacity 15.1 L Hgb O2 Saturation 95.1 FiO2 35.0 Sodium 147 Potassium 3.6 Chloride 114 H Carbon Dioxide 27 Anion Gap 10 BUN 78 H Creatinine 1.8 H Est GFR ( Amer) 45 Est GFR (Non-Af Amer) 37 Random Glucose 123 H Calcium 7.3 L Phosphorus 3.9 Magnesium 1.9 Total Bilirubin 1.4 H AST 445 H D ALT 1088 H Alkaline Phosphatase 119 Total Protein 4.7 L Albumin 2.1 L Globulin 2.6 Albumin/Globulin Ratio 0.8 L Review of Systems - Review of Systems Systems not reviewed;Unavailable: Intubated Critical Care Progress Note - Nutrition Nutrition: Nutrition Category Date Time Status NPO Diet [DIET] Diets 05/04/17 Breakfast Ordered Assessment/Plan - Assessment and Plan (Free Text) Assessment: 77 year old male with PMH of COPD, HTN, hyperglycemia, who presented originally with NSTEMI as well hyponatremia and hypokalemia, later had drop in Hgb and tachycardia while on the floor and found to have a gastric perforation, now POD# 7 of repair, followed by septic shock with AG metabolic acidosis and MODS and then found to have extensive cerebral and cerebellar infarcts. Plan: 1. Septic shock with metabolic acidosis and MODS - improving ID Dr. Rosario following, recs appreciated BCxs + for Chandrika, on micafungin D4, Optho consulted Cont merem D7 Leukocytosis improved and now afebrile Repeat BCxs - x2 D4 2. Perforated gastric ulcer S/p 4U PRBCs Surgery Dr. Mccrary following, S/p ex lap with wedge resection POD#7 Cont protonix [address] Lemus following 3. Respiratory failure Intubated PRVC 450/16/5/40% Sedated on precedex Cont merrem D7 Daily weaning trials and sedation vacation HOB elevated 4. NSTEMI Cardio Dr. Nick following Not on heparin drip 2/2 CVA and perforated gastric ulcer Off statin 2/2 shock liver 5. A. Fib with RVR - rate controlled Off Amiodarone 2/2 shock liver On cardizem PO, off drip Cardio Dr. Nick following 6. Shock liver 2/2 septic shock with hypotension Improving Off hepatotoxic medications GI Dr. Lemus following Hepatitis panel negative 7. Multiple cerebral/cerebellar infarcts 2/2 hypotension from septic shock MRI showed showed diffuse bilateral strokes Not on anticoagulation given previous bleeding Neuro following 8. JADEN - improving 2/2 hypotension from septic shock BUN and Cr improving Cont D5W Following urine output 9. Electrolyte abnormaltities - resolved Cont D5W Dispo: patient has a very poor prognosis at this time, multiple comorbidities. Krystal Adkinsontorly [employer]ACTIVE METALL[employer]GIST on the case. Possible ethics committee given no family contacts and no POA. Patient was seen and case was discussed at length with attending physician. - Date & Time Date: 05/11/17 Time: 09:45 <Germán Craig - Last Filed: 05/11/17 14:14> CCU Objective - Vital Signs / Intake & Output Vital Signs (Last 4 hours): Vital Signs Pulse BP 05/11/17 10:23 96 H 152/87 H Intake and Output (Last 8hrs): Intake & Output 05/10/17 05/11/17 05/11/17 22:59 06:59 14:59 Intake Total 71 2425 Output Total 850 Balance 71 1575 Intake: IV 71 1405 Left Upper arm 145 Right Hand 1260 Tube Feeding 720 Other 300 Output: Drainage 100 Right Abdomen 100 Urine 700 Urethral ([place]) 700 Stool 50 - Medications Active Medications: Active Medications Generic Name Dose Route Start Last Admin Trade Name Freq PRN Reason Stop Dose Admin Albuterol/Ipratropium 3 ml 05/06/17 14:00 05/11/17 13:43 Duoneb 3 Mg/0.5 Mg (3 Ml) Ud IH 3 ml [id number] SILVIA Administration Amlodipine Besylate 10 mg 05/01/17 12:45 05/03/17 10:25 Norvasc PO Not Given DAILY SILVIA Chlorhexidine Gluconate 15 ml 05/05/17 11:00 05/10/17 10:00 Peridex PO 15 ml BID SILVIA Administration Diltiazem HCl 60 mg 05/11/17 10:00 05/11/17 10:23 Cardizem PO 60 mg QID SILVIA Administration Hydralazine HCl 10 mg 05/01/17 02:36 05/04/17 17:42 Apresoline IVP 10 mg Q6 PRN Administration SBP> 160 Meropenem 1g/NS 100mL IVPB 1 gm in 100 mls @ 100 mls/hr 05/05/17 10:15 10:25 Meropenem 1g/Ns 100ml Ivpb IVPB 05/13/17 10:16 100 mls/hr Q12 SILVIA Administration Protocol Dexmedetomidine HCl 400 mcg in 100 mls @ 4.264 mls/hr 05/07/17 11:22 19:00 Precedex 4 Mcg/Ml (100 Ml) IV 0.4 mcg/kg/hr .[id number] PRN 8.528 mls/hr Sedation Titration Protocol 0.2 MCG/KG/HR Micafungin Sodium 100 mg/ 100 mls @ 100 mls/hr 05/08/17 10:00 05/11/17 10:24 Sodium Chloride IV 100 mls/hr DAILY SILVIA Administration Protocol Dextrose 1,000 mls @ 100 mls/hr 05/09/17 17:30 05/11/17 12:23 Dextrose 5% In Water 1000 Ml IV 100 mls/hr .Q10H SILVIA Administration Midazolam HCl 4 mg 05/04/17 18:44 05/06/17 04:40 Versed Inj IVP 4 mg Q4H PRN Administration Agitation Morphine Sulfate 2 mg 05/06/17 12:35 05/10/17 04:53 Morphine IVP 2 mg Q3H PRN Administration Pain, severe (8-10) Nitroglycerin 1 ea 05/02/17 00:00 05/11/17 12:25 Nitro-Bid 2% Oint TOP Not Given 0000,0600,1200,1800 SILVIA Pantoprazole Sodium 40 mg 05/06/17 10:00 05/11/17 10:27 Protonix Inj IVP 40 mg Q12 SILVIA Administration - Patient Studies Lab Studies: Microbiology Studies 05/09/17 08:44 Gram Stain - Final Trachasp Sputum Culture - Final NORMAL ORAL SHIRLENE 05/07/17 11:45 Blood Culture - Preliminary Blood NO GROWTH AFTER 4 DAYS 05/07/17 11:30 Blood Culture - Preliminary Blood NO GROWTH AFTER 4 DAYS Lab Studies 05/11/17 05/11/17 05/11/17 Range/Units 05:40 05:20 05:20 WBC 13.5 H (4.5-11.0) 10^3/ul RBC 3.33 L (3.5-6.1) 10^6/uL Hgb 10.8 L (14.0-18.0) g/dL Hct 32.2 L (42.0-52.0) % MCV 96.7 (80.0-105.0) fl MCH 32.4 (25.0-35.0) pg MCHC 33.5 (31.0-37.0) g/dl RDW 15.9 H (11.5-14.5) % Plt Count 186 (120.0-450.0) 10^3/uL MPV 10.5 (7.0-11.0) fl Gran % 86.3 H (50.0-68.0) % Lymph % (Auto) 7.1 L (22.0-35.0) % [place] % (Auto) 5.8 (1.0-6.0) % Eos % (Auto) 0.6 L (1.5-5.0) % Baso % (Auto) 0.2 (0.0-3.0) % Gran # 11.61 H (1.4-6.5) Lymph # 1.0 L (1.2-3.4) [place] # 0.8 H (0.1-0.6) Eos # 0.1 (0.0-0.7) Baso # 0.03 (0.0-2.0) K/mm3 pCO2 35 (35-45) mm/Hg pO2 102.0 H (80-100) mm/Hg HCO3 24.9 (21-28) mmol/L ABG pH 7.46 H (7.35-7.45) ABG Total CO2 26.0 (22-28) mmol.L ABG O2 Saturation 98.8 H (95-98) % ABG O2 Content 14.9 L (15-23) ML/dl ABG Base Excess 1.3 (-2.0-3.0) mmol/L ABG Hemoglobin 11.0 L (11.7-17.4) g/dL ABG Carboxyhemoglobin 2.3 H (0.5-1.5) % POC ABG HHb (Measured) 1.2 (0-5) % ABG Methemoglobin 1.4 (0.0-3.0) % ABG O2 Capacity 15.1 L (16-24) mL/dl Hgb O2 Saturation 95.1 (95.0-98.0) % FiO2 35.0 % Sodium 147 (132-148) mmol/L Potassium 3.6 (3.6-5.0) mmol/L Chloride 114 H (98-107) mmol/L Carbon Dioxide 27 (21-33) mmol/L Anion Gap 10 (10-20) BUN 78 H (7-21) mg/dL Creatinine 1.8 H (0.8-1.5) mg/dL Est GFR ( Amer) 45 Est GFR (Non-Af Amer) 37 Random Glucose 123 H (70-110) mg/dL Calcium 7.3 L (8.4-10.5) mg/dL Phosphorus 3.9 (2.5-4.5) mg/dL Magnesium 1.9 (1.7-2.2) mg/dL Total Bilirubin 1.4 H (0.2-1.3) mg/dL AST 445 H D (17-59) U/L ALT 1088 H (7-56) U/L Alkaline Phosphatase 119 (38-126) U/L Total Protein 4.7 L (5.8-8.3) g/dL Albumin 2.1 L (3.0-4.8) g/dL Globulin 2.6 gm/dL Albumin/Globulin Ratio 0.8 L (1.1-1.8) Laboratory Results - last 24 hr 05/11/17 05/11/17 05/11/17 05:20 05:20 05:40 WBC 13.5 H RBC 3.33 L Hgb 10.8 L Hct 32.2 L MCV 96.7 MCH 32.4 MCHC 33.5 RDW 15.9 H Plt Count 186 MPV 10.5 Gran % 86.3 H Lymph % (Auto) 7.1 L [place] % (Auto) 5.8 Eos % (Auto) 0.6 L Baso % (Auto) 0.2 Gran # 11.61 H Lymph # 1.0 L [place] # 0.8 H Eos # 0.1 Baso # 0.03 pCO2 35 pO2 102.0 H HCO3 24.9 ABG pH 7.46 H ABG Total CO2 26.0 ABG O2 Saturation 98.8 H ABG O2 Content 14.9 L ABG Base Excess 1.3 ABG Hemoglobin 11.0 L ABG Carboxyhemoglobin 2.3 H POC ABG HHb (Measured) 1.2 ABG Methemoglobin 1.4 ABG O2 Capacity 15.1 L Hgb O2 Saturation 95.1 FiO2 35.0 Sodium 147 Potassium 3.6 Chloride 114 H Carbon Dioxide 27 Anion Gap 10 BUN 78 H Creatinine 1.8 H Est GFR ( Amer) 45 Est GFR (Non-Af Amer) 37 Random Glucose 123 H Calcium 7.3 L Phosphorus 3.9 Magnesium 1.9 Total Bilirubin 1.4 H AST 445 H D ALT 1088 H Alkaline Phosphatase 119 Total Protein 4.7 L Albumin 2.1 L Globulin 2.6 Albumin/Globulin Ratio 0.8 L Critical Care Progress Note - Nutrition Nutrition: Nutrition Category Date Time Status NPO Diet [DIET] Diets 05/04/17 Breakfast Ordered Assessment/Plan - Assessment and Plan (Free Text) Plan: Patient seen and examined, case discussed with resident on rounds, agree with note with following additions/exceptions: Patient is 77yo male with PMH of COPD, HTN, hyperglycemia, who presented originally with NSTEMI, hyponatremia and hypokalemia, with subsequent complication of a gastric perforation, now POD#7 of repair, followed by septic shock with AG metabolic acidosis and MODS and then found to have extensive cerebral and cerebellar infarcts. Currently awake, but not aler,t not able to follow commands, does well on pressure support trials. Unable to extubate as patient cannot protect airway Septic Shock Cerebral Infartcs/CVA Hypernatremia Afib
--- NOTE | 2017-05-11 13:09 | PN ---
DATE: NEUROLOGY PROGRESS NOTE SUBJECTIVE: The patient is lying in the bed on the ventilator, in no acute distress. PHYSICAL EXAMINATION VITAL SIGNS: His blood pressure is 136/63, heart rate is 118 per minute, breathing at a rate of 20 per minute, and temperature is 99.1 degrees Fahrenheit. HEENT: Head is normocephalic and atraumatic. NECK: Supple. There are no carotid bruits. LUNGS: Clear. CARDIOVASCULAR SYSTEM: S1 and S2 audible. No murmurs. ABDOMEN: Soft and nontender. Bowel sounds are present. NEUROLOGIC: Mental status: The patient is awake and alert. He does not follow any commands. Cranial nerve examination: Pupils are 2 mm and reactive to light. Extraocular movements are intact. There is decreased visual field bilaterally. Motor examination: There is decreased tone in the upper extremities. There is no withdraw of upper extremities from noxious painful stimuli. There is positive withdraws of lower extremities to noxious painful stimuli. LABORATORY DATA: Reviewed shows WBC of 13.5, hemoglobin of 10.8, hematocrit of 32.2, and platelets of 186. Sodium is 147, potassium is 3.6, chloride is 114, carbon dioxide of 27, BUN of 78, creatinine of 1.8, and glucose of 123. IMPRESSION: 1. Cerebrovascular accident with watershed infarcts. 2. Respiratory failure. 3. Sepsis. 4. Renal failure. 5. Status post abdominal surgery. RECOMMENDATIONS: 1. The patient is still awaiting carotid Doppler study. 2. Consider starting rectal aspirin if okay from surgical standpoint. 3. The patient to be continued on IV antibiotics. 4. Because of bilateral infarcts, I reviewed the patient has bilateral visual field defect as well as he is aphasic. 5. Please continue supportive care and treatment. Thank you for the opportunity to participate in the care of this patient. Twila Rivera MD
--- NOTE | 2017-05-11 13:13 | CP.PCM.PN ---
<Ana Freeman - Last Filed: 05/11/17 13:14> Subjective - Date & Time of Evaluation Date of Evaluation: 05/11/17 Time of Evaluation: 09:40 - Subjective Subjective: seen and examined at the bedside earlier today, chart reviewed. Patient remains intubated, eyes open but unable to follow commands. Has NGtube. No reports of overt GI bleed. Objective - Vital Signs/Intake and Output Vital Signs (last 24 hours): Temp Pulse Resp BP Pulse Ox 99.1 F 96 H 22 152/87 H 92 L 05/11/17 04:00 05/11/17 10:23 05/11/17 06:00 05/11/17 10:05/11/17 06:00 Intake and Output: 05/11/17 05/11/17 06:59 18:59 Intake Total 2425 Output Total 850 Balance 1575 - Medications Medications: Current Medications Albuterol/Ipratropium (Duoneb 3 Mg/0.5 Mg (3 Ml) Ud) 3 ml IH [id number] [facility] Last Admin: 05/11/17 07:45 Dose: 3 ml Amlodipine Besylate (Norvasc) 10 mg PO DAILY [facility] Last Admin: 05/03/17 10:25 Dose: Not Given Chlorhexidine Gluconate (Peridex) 15 ml PO BID [facility] Last Admin: 05/10/17 10:00 Dose: 15 ml Diltiazem HCl (Cardizem) 60 mg PO QID [facility] Last Admin: 05/11/17 10:23 Dose: 60 mg Hydralazine HCl (Apresoline) 10 mg IVP Q6 PRN PRN Reason: SBP> 160 Last Admin: 05/04/17 17:42 Dose: 10 mg Meropenem 1g/NS 100mL IVPB (Meropenem 1g/Ns 100ml Ivpb) 1 gm in 100 mls @ 100 mls/hr IVPB Q12 [facility] PRN Reason: Protocol Stop: 05/13/17 10:16 Last Admin: 05/11/17 10:25 Dose: 100 mls/hr Dexmedetomidine HCl (Precedex 4 Mcg/Ml (100 Ml)) 400 mcg in 100 mls @ 4.264 mls /hr IV .[id number] PRN; Protocol; 0.2 MCG/KG/HR PRN Reason: Sedation Last Titration: 05/10/17 19:00 Dose: 0.4 mcg/kg/hr, 8.528 mls/hr Micafungin Sodium 100 mg/ (Sodium Chloride) 100 mls @ 100 mls/hr IV DAILY [facility] PRN Reason: Protocol Last Admin: 05/11/17 10:24 Dose: 100 mls/hr Dextrose (Dextrose 5% In Water 1000 Ml) 1,000 mls @ 100 mls/hr IV .Q10H [facility] Last Admin: 05/11/17 12:23 Dose: 100 mls/hr Midazolam HCl (Versed Inj) 4 mg IVP Q4H PRN PRN Reason: Agitation Last Admin: 05/06/17 04:40 Dose: 4 mg Morphine Sulfate (Morphine) 2 mg IVP Q3H PRN PRN Reason: Pain, severe (8-10) Last Admin: 05/10/17 04:53 Dose: 2 mg Nitroglycerin (Nitro-Bid 2% Oint) 1 ea TOP 0000,0600,1200,1800 [facility] Last Admin: 05/11/17 12:25 Dose: Not Given Pantoprazole Sodium (Protonix Inj) 40 mg IVP Q12 [facility] Last Admin: 05/11/17 10:27 Dose: 40 mg - Labs Labs: 05/11/17 05:20 05/11/17 05:20 PT 19.0 SECONDS (9.4-12.5) H 05/09/17 06:40 INR 1.71 (0.93-1.08) H 05/09/17 06:40 APTT 32.9 Seconds (23.7-30.8) H 05/06/17 04:45 - Constitutional Appears: No Acute Distress - Eye Exam Eye Exam: Normal appearance. absent: Scleral icterus - ENT Exam ENT Exam: Mucous Membranes Moist - Respiratory Exam Respiratory Exam: NORMAL BREATHING PATTERN. absent: Respiratory Distress - Cardiovascular Exam Cardiovascular Exam: +S1, +S2 - GI/Abdominal Exam GI & Abdominal Exam: Soft. absent: Guarding, Rebound Additional comments: surgical incision with angela MEME, positive MAX drain - Extremities Exam Extremities Exam: Normal Capillary Refill. absent: Calf Tenderness - Neurological Exam Neurological Exam: Altered - Skin Skin Exam: Dry, Warm Assessment and Plan - Assessment and Plan (Free Text) Assessment: Assessment: Respiratory failure, remains intubated GI bleed, found to have perforated gastric ulcer,s/p gastric wedge ulcer Acute cerebral infarct Bilateral pleural effusion/consolidation Acute renal failure Atrial fibrillation with RVR h/o chronic alcohol use Anemia, s/p blood transfusion Acute liver failure,Elevated LFT, differential to consider is shock liver, patient noted to have episodes of hypotension,lfts were normal values since admission, consider medication induced , amiodarone was stopped. Status post fall,w/ multiple rib fractures S/P Hyponatremia NSTEMI COPD H/O Colon polyps PLAN: NPO, continue IVF continue PPI on IV antibiotics as per ID On IV antibtioics Micafungin On Precedex off anticoagulant SCD to lower extremities monitor h/h, Transfuse as necessary trend LFT/PT/INR as per surgery, icu team, ID Family to make decision regarding goals of care Seen and discussed with Dr. Lemus. <Matthew Lemus V - Last Filed: 05/11/17 23:05> Objective - Vital Signs/Intake and Output Vital Signs (last 24 hours): Temp Pulse Resp BP Pulse Ox 99.0 F 68 22 129/58 L 100 05/11/17 22:30 05/11/17 22:30 05/11/17 06:00 05/11/17 22:30 05/11/17 22:30 Intake and Output: 05/11/17 05/12/17 18:59 06:59 Intake Total 1185 Output Total 1150 Balance 35 - Medications Medications: Current Medications Albuterol/Ipratropium (Duoneb 3 Mg/0.5 Mg (3 Ml) Ud) 3 ml IH [id number] [facility] Last Admin: 05/11/17 19:42 Dose: 3 ml Amlodipine Besylate (Norvasc) 10 mg PO DAILY [facility] Last Admin: 05/03/17 10:25 Dose: Not Given Chlorhexidine Gluconate (Peridex) 15 ml PO BID [facility] Last Admin: 05/11/17 18:30 Dose: 15 ml Diltiazem HCl (Cardizem) 60 mg PO QID [facility] Last Admin: 05/11/17 18:26 Dose: 60 mg Hydralazine HCl (Apresoline) 10 mg IVP Q6 PRN PRN Reason: SBP> 160 Last Admin: 05/04/17 17:42 Dose: 10 mg Meropenem 1g/NS 100mL IVPB (Meropenem 1g/Ns 100ml Ivpb) 1 gm in 100 mls @ 100 mls/hr IVPB Q12 [facility] PRN Reason: Protocol Stop: 05/13/17 10:16 Last Admin: 05/11/17 22:03 Dose: 100 mls/hr Dexmedetomidine HCl (Precedex 4 Mcg/Ml (100 Ml)) 400 mcg in 100 mls @ 4.264 mls /hr IV .[id number] PRN; Protocol; 0.2 MCG/KG/HR PRN Reason: Sedation Last Admin: 05/11/17 21:46 Dose: 0.4 mcg/kg/hr, 8.528 mls/hr Micafungin Sodium 100 mg/ (Sodium Chloride) 100 mls @ 100 mls/hr IV DAILY [facility] PRN Reason: Protocol Last Admin: 05/11/17 10:24 Dose: 100 mls/hr Dextrose (Dextrose 5% In Water 1000 Ml) 1,000 mls @ 100 mls/hr IV .Q10H [facility] Last Admin: 05/11/17 21:47 Dose: 100 mls/hr Midazolam HCl (Versed Inj) 4 mg IVP Q4H PRN PRN Reason: Agitation Last Admin: 05/06/17 04:40 Dose: 4 mg Morphine Sulfate (Morphine) 2 mg IVP Q3H PRN PRN Reason: Pain, severe (8-10) Last Admin: 05/10/17 04:53 Dose: 2 mg Nitroglycerin (Nitro-Bid 2% Oint) 1 ea TOP 0000,0600,1200,1800 [facility] Last Admin: 05/11/17 18:27 Dose: Not Given Pantoprazole Sodium (Protonix Inj) 40 mg IVP Q12 [facility] Last Admin: 05/11/17 10:27 Dose: 40 mg - Labs Labs: 05/11/17 05:20 05/11/17 05:20 PT 19.0 SECONDS (9.4-12.5) H 05/09/17 06:40 INR 1.71 (0.93-1.08) H 05/09/17 06:40 APTT 32.9 Seconds (23.7-30.8) H 05/06/17 04:45 Attending/Attestation - Attestation I have personally seen and examined this patient.: Yes I have fully participated in the care of the patient.: Yes I have reviewed all pertinent clinical information, including history, physical exam and plan: Yes Notes (Text): This is an addendum to GI progress report dictated by Ana Freeman APN.The patient was seen and examined earlier. Medical records, lab studies, imagings were reviewed. Last 24 hours events reviewed. Agreed with the above treatment plan as outlined in Ana Freeman APN's notes the with the addition of the following On examination abdomen soft . Still remains underwent LFTs shows downward trend Follow-up INR 05/11/17 23:04
--- NOTE | 2017-05-11 16:15 | CP.PCM.PN ---
Subjective - Date & Time of Evaluation Date of Evaluation: 05/11/17 Time of Evaluation: 15:50 - Subjective Subjective: Continues to be on the ventilator, no fevers overnight. Objective - Vital Signs/Intake and Output Vital Signs (last 24 hours): Temp Pulse Resp BP Pulse Ox 99.1 F 96 H 22 152/87 H 92 L 05/11/17 04:00 05/11/17 10:23 05/11/17 06:00 05/11/17 10:05/11/17 06:00 Intake and Output: 05/11/17 05/11/17 06:59 18:59 Intake Total 2425 Output Total 850 Balance 1575 - Medications Medications: Current Medications Albuterol/Ipratropium (Duoneb 3 Mg/0.5 Mg (3 Ml) Ud) 3 ml IH [id number] [facility] Last Admin: 05/11/17 13:43 Dose: 3 ml Amlodipine Besylate (Norvasc) 10 mg PO DAILY [facility] Last Admin: 05/03/17 10:25 Dose: Not Given Chlorhexidine Gluconate (Peridex) 15 ml PO BID [facility] Last Admin: 05/10/17 10:00 Dose: 15 ml Diltiazem HCl (Cardizem) 60 mg PO QID [facility] Last Admin: 05/11/17 10:23 Dose: 60 mg Hydralazine HCl (Apresoline) 10 mg IVP Q6 PRN PRN Reason: SBP> 160 Last Admin: 05/04/17 17:42 Dose: 10 mg Meropenem 1g/NS 100mL IVPB (Meropenem 1g/Ns 100ml Ivpb) 1 gm in 100 mls @ 100 mls/hr IVPB Q12 [facility] PRN Reason: Protocol Stop: 05/13/17 10:16 Last Admin: 05/11/17 10:25 Dose: 100 mls/hr Dexmedetomidine HCl (Precedex 4 Mcg/Ml (100 Ml)) 400 mcg in 100 mls @ 4.264 mls /hr IV .[id number] PRN; Protocol; 0.2 MCG/KG/HR PRN Reason: Sedation Last Titration: 05/10/17 19:00 Dose: 0.4 mcg/kg/hr, 8.528 mls/hr Micafungin Sodium 100 mg/ (Sodium Chloride) 100 mls @ 100 mls/hr IV DAILY [facility] PRN Reason: Protocol Last Admin: 05/11/17 10:24 Dose: 100 mls/hr Dextrose (Dextrose 5% In Water 1000 Ml) 1,000 mls @ 100 mls/hr IV .Q10H [facility] Last Admin: 05/11/17 12:23 Dose: 100 mls/hr Midazolam HCl (Versed Inj) 4 mg IVP Q4H PRN PRN Reason: Agitation Last Admin: 05/06/17 04:40 Dose: 4 mg Morphine Sulfate (Morphine) 2 mg IVP Q3H PRN PRN Reason: Pain, severe (8-10) Last Admin: 05/10/17 04:53 Dose: 2 mg Nitroglycerin (Nitro-Bid 2% Oint) 1 ea TOP 0000,0600,1200,1800 [facility] Last Admin: 05/11/17 12:25 Dose: Not Given Pantoprazole Sodium (Protonix Inj) 40 mg IVP Q12 [facility] Last Admin: 05/11/17 10:27 Dose: 40 mg - Labs Labs: 05/11/17 05:20 05/11/17 05:20 PT 19.0 SECONDS (9.4-12.5) H 05/09/17 06:40 INR 1.71 (0.93-1.08) H 05/09/17 06:40 APTT 32.9 Seconds (23.7-30.8) H 05/06/17 04:45 - Constitutional Appears: Other (intubated, sedated) - Neck Exam Neck Exam: absent: Meningismus - Respiratory Exam Respiratory Exam: Decreased Breath Sounds, Rales (scattered) - Cardiovascular Exam Cardiovascular Exam: +S1, +S2 - GI/Abdominal Exam GI & Abdominal Exam: Soft. absent: Tenderness Additional comments: abdominal drain in place still with bloody fluid Assessment and Plan - Assessment and Plan (Free Text) Plan: Assessment septic shock and cardiogenic shock with ventilator-dependent respiratory failure , renal failure, acute shock liver post-op, acute cerebral ischemia due to Chandrika glabrata fungemia and perforated gastric ulcer S/P ex-lap and gastric wedge resection POD #7, R/O bilateral lower lobe aspiration pneumonia in a patient still with ventilator-dependent respiratory failure post-op colon polyps COPD S/P bilateral knee surgery Plan continue Merrem day 7 and Mycamine (day 4); repeat blood cx is negative; PCT is elevated; will need Ophtho evaluation to rule out endophthalmitis will continue to monitor MAX drain output monitor and trend liver enzymes, Troponins overall prognosis is poor will continue to monitor clinically
[2017-05-11] MEDS: Dexmedetomidine HCl 4mcg/ml 400 MCG/100 ML BOTTLE IV PRN (21:46)
[2017-05-12] MEDS: Albuterol-Ipratrop 3 mg / 0.5 (3 ml) UD IH SCH ×4 (02:00→19:48)
[2017-05-12] MEDS: Nitroglycerin 2% Ointment Foilpak UD TOP SCH ×4 (06:02→17:23)
[2017-05-12] MEDS: Dexmedetomidine HCl 4mcg/ml 400 MCG/100 ML BOTTLE IV PRN ×2 (06:04→22:13)
[2017-05-12 07:20] LABS: BASO # 0.02 K/mm3 (0.0-2.0); BASO % 0.1 % (0.0-3.0); EOS # 0.2 (0.0-0.7); EOS % 1.3 % (1.5-5.0); GRAN # 12.02 (1.4-6.5); GRAN % 83.1 % (50.0-68.0); HEMATOCRIT 33.2 % (42.0-52.0); LYMPH # 1.5 (1.2-3.4); MEAN CELL VOLUME 97.9 fl (80.0-105.0); MEAN CORPUSCULAR HEMOGLOBIN 31.9 pg (25.0-35.0); MEAN CORPUSCULAR HGB CONC 32.5 g/dl (31.0-37.0); MEAN PLATELET VOLUME 11.6 fl (7.0-11.0); MONO # 0.8 (0.1-0.6); MONO % 5.5 % (1.0-6.0); RED CELL DISTRIBUTION WIDTH 15.9 % (11.5-14.5); WHITE BLOOD COUNT 14.5 10^3/ul (4.5-11.0)
[2017-05-12 07:25] LABS: ARTERIAL BLOOD GAS HCO3 26.8 mmol/L (21-28); ARTERIAL BLOOD GAS O2 CAPACITY 14.9 mL/dl (16-24); ARTERIAL BLOOD GAS O2 CONTENT 14.7 ML/dl (15-23); ARTERIAL BLOOD GAS PH 7.48 (7.35-7.45); ARTERIAL BLOOD HGB O2 SAT 95.6 % (95.0-98.0); CARBOXYHEMOGLOBIN 2.3 % (0.5-1.5); HHB 1.1 % (0-5); METHEMOGLOBIN 1.1 % (0.0-3.0)
[2017-05-12 07:37] LABS: ALB/GLOB RATIO 0.8 (1.1-1.8); BILIRUBIN,TOTAL 1.5 mg/dL (0.2-1.3); CALCIUM 7.1 mg/dL (8.4-10.5); MAGNESIUM 1.8 mg/dL (1.7-2.2); PHOSPHOROUS 4.1 mg/dL (2.5-4.5); POTASSIUM 4.1 mmol/L (3.6-5.0); TOTAL PROTEIN 4.7 g/dL (5.8-8.3)
--- NOTE | 2017-05-12 08:11 | CP.PCM.PN ---
Subjective - Date & Time of Evaluation Date of Evaluation: 05/12/17 Time of Evaluation: 08:07 - Subjective Subjective: Surgery Pt s&e. Pt opening eyes spontaneously but doesn't follow commands. Drain removed this AM. Objective - Vital Signs/Intake and Output Vital Signs (last 24 hours): Temp Pulse Resp BP Pulse Ox 98.2 F 58 L 18 116/50 L 96 05/12/17 06:10 05/12/17 06:10 05/12/17 07:05 05/12/17 06:00 05/12/17 07:05 Intake and Output: 05/12/17 05/12/17 06:59 18:59 Intake Total 1420 Output Total 840 Balance 580 - Medications Medications: Current Medications Albuterol/Ipratropium (Duoneb 3 Mg/0.5 Mg (3 Ml) Ud) 3 ml IH [id number] [facility] Last Admin: 05/12/17 07:02 Dose: 3 ml Amlodipine Besylate (Norvasc) 10 mg PO DAILY [facility] Last Admin: 05/03/17 10:25 Dose: Not Given Chlorhexidine Gluconate (Peridex) 15 ml PO BID [facility] Last Admin: 05/11/17 18:30 Dose: 15 ml Diltiazem HCl (Cardizem) 60 mg PO QID [facility] Last Admin: 05/11/17 22:55 Dose: 60 mg Hydralazine HCl (Apresoline) 10 mg IVP Q6 PRN PRN Reason: SBP> 160 Last Admin: 05/04/17 17:42 Dose: 10 mg Meropenem 1g/NS 100mL IVPB (Meropenem 1g/Ns 100ml Ivpb) 1 gm in 100 mls @ 100 mls/hr IVPB Q12 [facility] PRN Reason: Protocol Stop: 05/13/17 10:16 Last Admin: 05/11/17 22:03 Dose: 100 mls/hr Dexmedetomidine HCl (Precedex 4 Mcg/Ml (100 Ml)) 400 mcg in 100 mls @ 4.264 mls /hr IV .[id number] PRN; Protocol; 0.2 MCG/KG/HR PRN Reason: Sedation Last Admin: 05/12/17 06:04 Dose: 0.4 mcg/kg/hr, 8.528 mls/hr Micafungin Sodium 100 mg/ (Sodium Chloride) 100 mls @ 100 mls/hr IV DAILY [facility] PRN Reason: Protocol Last Admin: 05/11/17 10:24 Dose: 100 mls/hr Dextrose (Dextrose 5% In Water 1000 Ml) 1,000 mls @ 100 mls/hr IV .Q10H [facility] Last Admin: 05/11/17 21:47 Dose: 100 mls/hr Midazolam HCl (Versed Inj) 4 mg IVP Q4H PRN PRN Reason: Agitation Last Admin: 05/06/17 04:40 Dose: 4 mg Morphine Sulfate (Morphine) 2 mg IVP Q3H PRN PRN Reason: Pain, severe (8-10) Last Admin: 05/10/17 04:53 Dose: 2 mg Nitroglycerin (Nitro-Bid 2% Oint) 1 ea TOP 0000,0600,1200,1800 [facility] Last Admin: 05/12/17 06:03 Dose: Not Given Pantoprazole Sodium (Protonix Inj) 40 mg IVP Q12 [facility] Last Admin: 05/11/17 22:57 Dose: 40 mg - Labs Labs: 05/12/17 07:15 05/12/17 07:15 PT 19.0 SECONDS (9.4-12.5) H 05/09/17 06:40 INR 1.71 (0.93-1.08) H 05/09/17 06:40 APTT 32.9 Seconds (23.7-30.8) H 05/06/17 04:45 - Constitutional Appears: Chronically Ill - Head Exam Head Exam: ATRAUMATIC, NORMAL INSPECTION, NORMOCEPHALIC - Eye Exam Eye Exam: absent: EOMI - ENT Exam ENT Exam: Mucous Membranes Moist, Normal Exam Additional comments: NGt in place. - Respiratory Exam Respiratory Exam: Respiratory Distress Additional comments: Intubated. - Cardiovascular Exam Cardiovascular Exam: REGULAR RHYTHM, +S1, +S2. absent: Murmur - GI/Abdominal Exam GI & Abdominal Exam: Soft, Normal Bowel Sounds. absent: Distended, Tenderness Additional comments: Incision C/D/I. Stapled. - Exam Exam: Scrotal Swelling (Rosario in place) - Neurological Exam Neurological Exam: absent: Alert, Awake, CN II-XII Intact, Normal Gait, Oriented x3 - Skin Skin Exam: Dry, Intact, Warm Assessment and Plan - Assessment and Plan (Free Text) Assessment: 77 M POD#8 s/p Ex-lap w. Gastric wedge resection for perforated ulcer, with post -op b/l infarcts -Tube feeds to goal via NGT -Social work still in process of trying to find family for decision making -Will continue to follow -ICU management DW Dr. Yarbrough (covering for Dr. Mccrary)
[2017-05-12] MEDS: Chlorhexidine 0.12% Oral Sol 480 ml Bot PO SCH ×2 (10:00→17:26)
[2017-05-12] MEDS: Meropenem 1g/NS 100mL IVPB 1 GM/100 ML PIGGYBACK IVPB SCH (10:01)
[2017-05-12] MEDS: Micafungin 100 MG in Sodium Chloride 0.9% 100 ML IV SCH (10:02)
--- NOTE | 2017-05-12 10:05 | CP.PCM.PN ---
Subjective - Date & Time of Evaluation Date of Evaluation: 05/12/17 Time of Evaluation: 09:50 - Subjective Subjective: Continues to be on the ventilator, no fevers overnight, not on pressors, abdominal drain has been removed. Objective - Vital Signs/Intake and Output Vital Signs (last 24 hours): Temp Pulse Resp BP Pulse Ox 98.2 F 58 L 17 116/50 L 100 05/12/17 06:10 05/12/17 06:10 05/12/17 06:02 05/12/17 06:00 05/11/17 22:30 Intake and Output: 05/11/17 05/12/17 18:59 06:59 Intake Total 1185 1420 Output Total 1150 840 Balance 35 580 - Medications Medications: Current Medications Albuterol/Ipratropium (Duoneb 3 Mg/0.5 Mg (3 Ml) Ud) 3 ml IH [id number] [facility] Last Admin: 05/12/17 02:00 Dose: 3 ml Amlodipine Besylate (Norvasc) 10 mg PO DAILY [facility] Last Admin: 05/03/17 10:25 Dose: Not Given Chlorhexidine Gluconate (Peridex) 15 ml PO BID [facility] Last Admin: 05/11/17 18:30 Dose: 15 ml Diltiazem HCl (Cardizem) 60 mg PO QID [facility] Last Admin: 05/11/17 22:55 Dose: 60 mg Hydralazine HCl (Apresoline) 10 mg IVP Q6 PRN PRN Reason: SBP> 160 Last Admin: 05/04/17 17:42 Dose: 10 mg Meropenem 1g/NS 100mL IVPB (Meropenem 1g/Ns 100ml Ivpb) 1 gm in 100 mls @ 100 mls/hr IVPB Q12 [facility] PRN Reason: Protocol Stop: 05/13/17 10:16 Last Admin: 05/11/17 22:03 Dose: 100 mls/hr Dexmedetomidine HCl (Precedex 4 Mcg/Ml (100 Ml)) 400 mcg in 100 mls @ 4.264 mls /hr IV .[id number] PRN; Protocol; 0.2 MCG/KG/HR PRN Reason: Sedation Last Admin: 05/12/17 06:04 Dose: 0.4 mcg/kg/hr, 8.528 mls/hr Micafungin Sodium 100 mg/ (Sodium Chloride) 100 mls @ 100 mls/hr IV DAILY [facility] PRN Reason: Protocol Last Admin: 05/11/17 10:24 Dose: 100 mls/hr Dextrose (Dextrose 5% In Water 1000 Ml) 1,000 mls @ 100 mls/hr IV .Q10H [facility] Last Admin: 05/11/17 21:47 Dose: 100 mls/hr Midazolam HCl (Versed Inj) 4 mg IVP Q4H PRN PRN Reason: Agitation Last Admin: 05/06/17 04:40 Dose: 4 mg Morphine Sulfate (Morphine) 2 mg IVP Q3H PRN PRN Reason: Pain, severe (8-10) Last Admin: 05/10/17 04:53 Dose: 2 mg Nitroglycerin (Nitro-Bid 2% Oint) 1 ea TOP 0000,0600,1200,1800 [facility] Last Admin: 05/12/17 06:03 Dose: Not Given Pantoprazole Sodium (Protonix Inj) 40 mg IVP Q12 [facility] Last Admin: 05/11/17 22:57 Dose: 40 mg - Labs Labs: 05/11/17 05:20 05/11/17 05:20 PT 19.0 SECONDS (9.4-12.5) H 05/09/17 06:40 INR 1.71 (0.93-1.08) H 05/09/17 06:40 APTT 32.9 Seconds (23.7-30.8) H 05/06/17 04:45 - Constitutional Appears: Other (intubated and sedated) - ENT Exam Additional comments: ET tube in place - Neck Exam Neck Exam: absent: Meningismus - Respiratory Exam Respiratory Exam: Decreased Breath Sounds - Cardiovascular Exam Cardiovascular Exam: +S1, +S2 - GI/Abdominal Exam GI & Abdominal Exam: Soft. absent: Tenderness Assessment and Plan - Assessment and Plan (Free Text) Plan: Assessment severe sepsis S/P septic and cardiogenic shock with ventilator-dependent respiratory failure, renal failure, acute shock liver post-op, acute cerebral ischemia due to Chandrika glabrata fungemia and perforated gastric ulcer S/P ex- lap and gastric wedge resection POD #7, R/O bilateral lower lobe aspiration pneumonia in a patient still with ventilator-dependent respiratory failure post- op colon polyps COPD S/P bilateral knee surgery Plan continue Merrem day 8 and Mycamine (day 5); repeat blood cx is negative; PCT is elevated; will need Ophtho evaluation to rule out endophthalmitis MAX drain has been removed monitor and trend liver enzymes (slowly decreasing), Troponins overall prognosis is poor will continue to follow clinically
--- NOTE | 2017-05-12 10:22 | CP.PCM.PN ---
Subjective - Date & Time of Evaluation Date of Evaluation: 05/12/17 Time of Evaluation: 10:00 - Subjective Subjective: Intubated, sedated. No acute changes. Objective - Vital Signs/Intake and Output Vital Signs (last 24 hours): Temp Pulse Resp BP Pulse Ox 98.2 F 76 18 154/64 H 96 05/12/17 06:10 05/12/17 09:58 05/12/17 07:05 05/12/17 09:58 05/12/17 07:05 Intake and Output: 05/12/17 05/12/17 06:59 18:59 Intake Total 1420 Output Total 840 Balance 580 - Medications Medications: Current Medications Albuterol/Ipratropium (Duoneb 3 Mg/0.5 Mg (3 Ml) Ud) 3 ml IH [id number] [facility] Last Admin: 05/12/17 07:02 Dose: 3 ml Chlorhexidine Gluconate (Peridex) 15 ml PO BID [facility] Last Admin: 05/11/17 18:30 Dose: 15 ml Diltiazem HCl (Cardizem) 60 mg PO QID [facility] Last Admin: 05/12/17 09:58 Dose: 60 mg Enoxaparin Sodium (Lovenox) 30 mg SC DAILY [facility] PRN Reason: Protocol Hydralazine HCl (Apresoline) 10 mg IVP Q6 PRN PRN Reason: SBP> 160 Last Admin: 05/04/17 17:42 Dose: 10 mg Meropenem 1g/NS 100mL IVPB (Meropenem 1g/Ns 100ml Ivpb) 1 gm in 100 mls @ 100 mls/hr IVPB Q12 [facility] PRN Reason: Protocol Stop: 05/13/17 10:16 Last Admin: 05/12/17 10:01 Dose: 100 mls/hr Dexmedetomidine HCl (Precedex 4 Mcg/Ml (100 Ml)) 400 mcg in 100 mls @ 4.264 mls /hr IV .[id number] PRN; Protocol; 0.2 MCG/KG/HR PRN Reason: Sedation Last Admin: 05/12/17 06:04 Dose: 0.4 mcg/kg/hr, 8.528 mls/hr Micafungin Sodium 100 mg/ (Sodium Chloride) 100 mls @ 100 mls/hr IV DAILY [facility] PRN Reason: Protocol Last Admin: 05/12/17 10:02 Dose: 100 mls/hr Midazolam HCl (Versed Inj) 4 mg IVP Q4H PRN PRN Reason: Agitation Last Admin: 05/06/17 04:40 Dose: 4 mg Morphine Sulfate (Morphine) 2 mg IVP Q3H PRN PRN Reason: Pain, severe (8-10) Last Admin: 05/10/17 04:53 Dose: 2 mg Nitroglycerin (Nitro-Bid 2% Oint) 1 ea TOP 0000,0600,1200,1800 [facility] Last Admin: 05/12/17 06:03 Dose: Not Given Pantoprazole Sodium (Protonix Inj) 40 mg IVP Q12 [facility] Last Admin: 05/12/17 09:58 Dose: 40 mg - Labs Labs: 05/12/17 07:15 05/12/17 07:15 PT 19.0 SECONDS (9.4-12.5) H 05/09/17 06:40 INR 1.71 (0.93-1.08) H 05/09/17 06:40 APTT 32.9 Seconds (23.7-30.8) H 05/06/17 04:45 - Constitutional Appears: Chronically Ill - Eye Exam Eye Exam: Normal appearance, PERRL - ENT Exam ENT Exam: Mucous Membranes Moist - Respiratory Exam Respiratory Exam: Decreased Breath Sounds - Cardiovascular Exam Cardiovascular Exam: REGULAR RHYTHM, +S1, +S2 - GI/Abdominal Exam GI & Abdominal Exam: Soft, Diminished Bowel Sounds - Extremities Exam Extremities Exam: Normal Capillary Refill, Normal Inspection - Skin Skin Exam: Dry, Warm Assessment and Plan - Assessment and Plan (Free Text) Assessment: 77 year old male with history of COPD, HTN, hyperglycemia who presented with GI bleed, developed perforated viscus s/p repair. He remains intubated, unable to wean from ventilator. Mental status poor as he has sustained multiple cerebral infarcts. He has also developed fungemia, rapid atrial fibrillation. As discussed with Dr Bowser.He is now DNR status. SW unable to teach any relatives. Discharge planning in progress. Ethics consult pending. May need to appoint legal guardian Plan: DNR
--- NOTE | 2017-05-12 11:33 | CP.CCUPN ---
<Mario Mullins - Last Filed: 05/12/17 11:13> CCU Subjective - Physician Review Subjective (Free Text): Subjective: Patient seen and examined at bedside. Resting comfortably in bed. Elevated BP noted and appreciated overnight. ROS cannot be attained at this due to altered mental status. Physical Examination: Head: Positive for: Atraumatic, Normocephalic Pupils: Positive for: Other (dilated ~7mm BL, reactive L>R). Negative for: Non- Reactive, Pinpoint Extroacular Muscles: Positive for: Other (not following commands) Conjunctiva: Positive for: Normal. Negative for: Injected, Icteric Mouth: Positive for: Moist Mucous Membranes, Normal Lips, Normal Tounge Nose (External): Positive for: Atraumatic. Negative for: Abrasion, Contusion, Laceration Neck: Positive for: Trachea Midline. Negative for: JVD, Lymphadenopathy Respiratory/Chest: Positive for: Clear to Auscultation, Good Air Exchange, Other (intubated). Negative for: Respiratory Distress, Wheezes, Rales, Rhonchi Cardiovascular: Positive for: Regular Rate and Rhythm, Normal S1, S2. Negative for: Murmurs, Tachycardic, Bradycardic, Rub, Gallop Abdomen: Positive for: Tenderness, Other (surgical dressing midline c/d/i, gastric tube ). Negative for: Distention, Peritoneal Signs Genitourinary Male: Positive for: Normal External Genitalia, Other (villela catheter in place ) Upper Extremity: Positive for: Edema Negative for: Cyanosis, Swelling, Erythema , Deformity Lower Extremity: Negative for: Cyanosis, Erythema, Deformity, Capillary Refill < 2 s Neurological: Positive for: Other (intubated, opens eyes to verbal stimuli, unable to follow commands, corneal reflex present, pupils sluggish and slightly reactive ) Skin: Positive for: Warm, Dry, Normal Color. Negative for: Rashes Assessment and Plan: 77 year old male with PMH of COPD, HTN, hyperglycemia, who presented originally with NSTEMI as well hyponatremia and hypokalemia, later had drop in Hgb and tachycardia while on the floor and found to have a gastric perforation, now POD# 8 of repair, followed by septic shock with AG metabolic acidosis and MODS and then found to have extensive cerebral and cerebellar infarcts. Septic shock with metabolic acidosis and MODS - improving ID Dr. Rosario following, recs appreciated BCxs + for Chandrika, on micafungin D4, Optho consulted Cont merem D8 Leukocytosis worse today and still afebrile Perforated gastric ulcer S/p 4U PRBCs Surgery Dr. Mccrary following, S/p ex lap with wedge resection POD#8 Cont protonix [address] Lemus following Respiratory failure Intubated PRVC 450/16/5/40%; abg reviewed and appreciated Sedated on precedex Cont merrem D8 Pressure support trial failed- placed back on PRVC Daily sedation vacation HOB elevated NSTEMI Cardio Dr. Nick following Not on heparin drip 2/2 CVA and perforated gastric ulcer Off statin 2/2 shock liver A. Fib with RVR - rate controlled Off Amiodarone 2/2 shock liver On cardizem PO, off drip Cardio Dr. Nick following Shock liver 2/2 septic shock with hypotension Improving Off hepatotoxic medications GI Dr. Lemus following Hepatitis panel negative Multiple cerebral/cerebellar infarcts 2/2 hypotension from septic shock MRI showed showed diffuse bilateral strokes Not on anticoagulation given previous bleeding Neuro following JADEN - improving 2/2 hypotension from septic shock BUN and Cr improving discontinued D5 Following urine output Electrolyte abnormaltities - resolved D5W discontinued Prophylaxis - pantoprazole - lovenox Dispo: patient has a very poor prognosis at this time, multiple comorbidities. Krystal Cruz CONTAINER COORDINATOR on the case. Possible ethics committee given no family contacts and no POA. Patient seen, case discussed with, and plan approved by attending physician, Dr. Craig. 05/12/17 11:13 CCU Objective - Vital Signs / Intake & Output Vital Signs (Last 4 hours): Vital Signs Pulse BP 05/12/17 09:58 76 154/64 H Intake and Output (Last 8hrs): Intake & Output 05/11/17 05/12/17 05/12/17 22:59 06:59 14:59 Intake Total 1185 1420 Output Total 1150 840 Balance 35 580 Intake: IV 155 1420 Left Upper arm 1320 Right Hand 155 Tube Feeding 930 Other 100 Output: Drainage 150 40 Right Abdomen 150 40 Urine 1000 800 Urethral (Villela) 1000 800 Stool 0 - Physical Exam Head: Positive for: Atraumatic, Normocephalic Pupils: Positive for: Other (dilated ~7mm BL, reactive L>R). Negative for: Non- Reactive, Pinpoint Extroacular Muscles: Positive for: Other (not following commands) Conjunctiva: Positive for: Normal. Negative for: Injected, Icteric Mouth: Positive for: Moist Mucous Membranes, Normal Lips, Normal Tounge Nose (External): Positive for: Atraumatic. Negative for: Abrasion, Contusion, Laceration Neck: Positive for: Trachea Midline. Negative for: JVD, Lymphadenopathy Respiratory/Chest: Positive for: Clear to Auscultation, Good Air Exchange, Other (intubated). Negative for: Respiratory Distress, Wheezes, Rales, Rhonchi Cardiovascular: Positive for: Regular Rate and Rhythm, Normal S1, S2. Negative for: Murmurs, Tachycardic, Bradycardic, Rub, Gallop Abdomen: Positive for: Tenderness, Other (surgical dressing midline c/d/i, gastric tube ). Negative for: Distention, Peritoneal Signs Rectal: Positive for: Melena, Other (rectal tube in place with bag collection of dark liquid melanotic stool) Genitourinary Male: Positive for: Normal External Genitalia, Other (villela catheter in place ) Back: Positive for: Normal Inspection Upper Extremity: Positive for: Normal Inspection, NORMAL PULSES. Negative for: Cyanosis, Edema, Swelling, Erythema, Deformity Lower Extremity: Positive for: Normal Inspection, NORMAL PULSES. Negative for: Edema, CALF TENDERNESS, Cyanosis, Tenderness, Erythema, Deformity, Capillary Refill < 2 s Neurological: Positive for: Other (intubated, opens eyes to verbal stimuli, unable to follow commands, corneal reflex present, pupils sluggish and slightly reactive ) Skin: Positive for: Warm, Dry, Normal Color. Negative for: Rashes Psychiatric: Positive for: Normal Affect, Normal Mood. Negative for: Anxious, Agitated - Medications Active Medications: Active Medications Generic Name Dose Route Start Last Admin Trade Name Freq PRN Reason Stop Dose Admin Albuterol/Ipratropium 3 ml 05/06/17 14:00 05/12/17 07:02 Duoneb 3 Mg/0.5 Mg (3 Ml) Ud IH 3 ml [id number] [facility] Administration Chlorhexidine Gluconate 15 ml 05/05/17 11:00 05/11/17 18:30 Peridex PO 15 ml BID [facility] Administration Diltiazem HCl 60 mg 05/11/17 10:00 05/12/17 09:58 Cardizem PO 60 mg QID [facility] Administration Enoxaparin Sodium 30 mg 05/13/17 10:00 Lovenox SC DAILY [facility] Protocol Hydralazine HCl 10 mg 05/01/17 02:36 05/04/17 17:42 Apresoline IVP 10 mg Q6 PRN Administration SBP> 160 Meropenem 1g/NS 100mL IVPB 1 gm in 100 mls @ 100 mls/hr 05/05/17 10:15 10:01 Meropenem 1g/Ns 100ml Ivpb IVPB 05/13/17 10:16 100 mls/hr Q12 [facility] Administration Protocol Dexmedetomidine HCl 400 mcg in 100 mls @ 4.264 mls/hr 05/07/17 11:22 06:04 Precedex 4 Mcg/Ml (100 Ml) IV 0.4 mcg/kg/hr .[id number] PRN 8.528 mls/hr Sedation Administration Protocol 0.2 MCG/KG/HR Micafungin Sodium 100 mg/ 100 mls @ 100 mls/hr 05/08/17 10:00 05/12/17 10:02 Sodium Chloride IV 100 mls/hr DAILY [facility] Administration Protocol Midazolam HCl 4 mg 05/04/17 18:44 05/06/17 04:40 Versed Inj IVP 4 mg Q4H PRN Administration Agitation Morphine Sulfate 2 mg 05/06/17 12:35 05/10/17 04:53 Morphine IVP 2 mg Q3H PRN Administration Pain, severe (8-10) Nitroglycerin 1 ea 05/02/17 00:00 05/12/17 06:03 Nitro-Bid 2% Oint TOP Not Given 0000,0600,1200,1800 [facility] Pantoprazole Sodium 40 mg 05/06/17 10:00 05/12/17 09:58 Protonix Inj IVP 40 mg Q12 [facility] Administration - Patient Studies Lab Studies: Microbiology Studies 05/09/17 08:44 Gram Stain - Final Trachasp Sputum Culture - Final NORMAL ORAL SHIRLENE 05/07/17 11:45 Blood Culture - Preliminary Blood NO GROWTH AFTER 4 DAYS 05/07/17 11:30 Blood Culture - Preliminary Blood NO GROWTH AFTER 4 DAYS Lab Studies 05/12/17 05/12/17 05/12/17 Range/Units 07:44 07:15 07:15 WBC 14.5 H (4.5-11.0) 10^3/ul RBC 3.39 L (3.5-6.1) 10^6/uL Hgb 10.8 L (14.0-18.0) g/dL Hct 33.2 L (42.0-52.0) % MCV 97.9 (80.0-105.0) fl MCH 31.9 (25.0-35.0) pg MCHC 32.5 (31.0-37.0) g/dl RDW 15.9 H (11.5-14.5) % Plt Count 177 (120.0-450.0) 10^3/uL MPV 11.6 H (7.0-11.0) fl Gran % 83.1 H (50.0-68.0) % Lymph % (Auto) 10.0 L (22.0-35.0) % [place] % (Auto) 5.5 (1.0-6.0) % Eos % (Auto) 1.3 L (1.5-5.0) % Baso % (Auto) 0.1 (0.0-3.0) % Gran # 12.02 H (1.4-6.5) Lymph # 1.5 (1.2-3.4) [place] # 0.8 H (0.1-0.6) Eos # 0.2 (0.0-0.7) Baso # 0.02 (0.0-2.0) K/mm3 pCO2 (35-45) mm/Hg pO2 (80-100) mm/Hg HCO3 (21-28) mmol/L ABG pH (7.35-7.45) ABG Total CO2 (22-28) mmol.L ABG O2 Saturation (95-98) % ABG O2 Content (15-23) ML/dl ABG Base Excess (-2.0-3.0) mmol/L ABG Hemoglobin (11.7-17.4) g/dL ABG Carboxyhemoglobin (0.5-1.5) % POC ABG HHb (Measured) (0-5) % ABG Methemoglobin (0.0-3.0) % ABG O2 Capacity (16-24) mL/dl Hgb O2 Saturation (95.0-98.0) % FiO2 % Sodium 143 (132-148) mmol/L Potassium 4.1 (3.6-5.0) mmol/L Chloride 111 H (95-110) mmol/L Carbon Dioxide 27 (21-33) mmol/L Anion Gap 9 L (10-20) BUN 68 H (7-21) mg/dL Creatinine 1.5 (0.8-1.5) mg/dL Est GFR ( Amer) 55 Est GFR (Non-Af Amer) 46 POC Glucose (mg/dL) 114 H (65-110) mg/dL Random Glucose 106 (70-110) mg/dL Calcium 7.1 L (8.4-10.5) mg/dL Phosphorus 4.1 (2.5-4.5) mg/dL Magnesium 1.8 (1.7-2.2) mg/dL Total Bilirubin 1.5 H (0.2-1.3) mg/dL AST 174 H D (17-59) U/L ALT 649 H (7-56) U/L Alkaline Phosphatase 105 (38-126) U/L Total Protein 4.7 L (5.8-8.3) g/dL Albumin 2.1 L (3.0-4.8) g/dL Globulin 2.6 gm/dL Albumin/Globulin Ratio 0.8 L (1.1-1.8) 05/12/ Range/Units 05:30 WBC (4.5-11.0) 10^3/ul RBC (3.5-6.1) 10^6/uL Hgb (14.0-18.0) g/dL Hct (42.0-52.0) % MCV (80.0-105.0) fl MCH (25.0-35.0) pg MCHC (31.0-37.0) g/dl RDW (11.5-14.5) % Plt Count (120.0-450.0) 10^3/uL MPV (7.0-11.0) fl Gran % (50.0-68.0) % Lymph % (Auto) (22.0-35.0) % [place] % (Auto) (1.0-6.0) % Eos % (Auto) (1.5-5.0) % Baso % (Auto) (0.0-3.0) % Gran # (1.4-6.5) Lymph # (1.2-3.4) [place] # (0.1-0.6) Eos # (0.0-0.7) Baso # (0.0-2.0) K/mm3 pCO2 36 (35-45) mm/Hg pO2 115.0 H (80-100) mm/Hg HCO3 26.8 (21-28) mmol/L ABG pH 7.48 H (7.35-7.45) ABG Total CO2 27.9 (22-28) mmol.L ABG O2 Saturation 98.9 H (95-98) % ABG O2 Content 14.7 L (15-23) ML/dl ABG Base Excess 3.3 H (-2.0-3.0) mmol/L ABG Hemoglobin 10.8 L (11.7-17.4) g/dL ABG Carboxyhemoglobin 2.3 H (0.5-1.5) % POC ABG HHb (Measured) 1.1 (0-5) % ABG Methemoglobin 1.1 (0.0-3.0) % ABG O2 Capacity 14.9 L (16-24) mL/dl Hgb O2 Saturation 95.6 (95.0-98.0) % FiO2 40.0 % Sodium (132-148) mmol/L Potassium (3.6-5.0) mmol/L Chloride (95-110) mmol/L Carbon Dioxide (21-33) mmol/L Anion Gap (10-20) BUN (7-21) mg/dL Creatinine (0.8-1.5) mg/dL Est GFR ( Amer) Est GFR (Non-Af Amer) POC Glucose (mg/dL) (65-110) mg/dL Random Glucose (70-110) mg/dL Calcium (8.4-10.5) mg/dL Phosphorus (2.5-4.5) mg/dL Magnesium (1.7-2.2) mg/dL Total Bilirubin (0.2-1.3) mg/dL AST (17-59) U/L ALT (7-56) U/L Alkaline Phosphatase (38-126) U/L Total Protein (5.8-8.3) g/dL Albumin (3.0-4.8) g/dL Globulin gm/dL Albumin/Globulin Ratio (1.1-1.8) Laboratory Results - last 24 hr 05/12/17 05/12/17 05/12/17 05:30 07:15 07:15 WBC 14.5 H RBC 3.39 L Hgb 10.8 L Hct 33.2 L MCV 97.9 MCH 31.9 MCHC 32.5 RDW 15.9 H Plt Count 177 MPV 11.6 H Gran % 83.1 H Lymph % (Auto) 10.0 L [place] % (Auto) 5.5 Eos % (Auto) 1.3 L Baso % (Auto) 0.1 Gran # 12.02 H Lymph # 1.5 [place] # 0.8 H Eos # 0.2 Baso # 0.02 pCO2 36 pO2 115.0 H HCO3 26.8 ABG pH 7.48 H ABG Total CO2 27.9 ABG O2 Saturation 98.9 H ABG O2 Content 14.7 L ABG Base Excess 3.3 H ABG Hemoglobin 10.8 L ABG Carboxyhemoglobin 2.3 H POC ABG HHb (Measured) 1.1 ABG Methemoglobin 1.1 ABG O2 Capacity 14.9 L Hgb O2 Saturation 95.6 FiO2 40.0 Sodium 143 Potassium 4.1 Chloride 111 H Carbon Dioxide 27 Anion Gap 9 L BUN 68 H Creatinine 1.5 Est GFR ( Amer) 55 Est GFR (Non-Af Amer) 46 POC Glucose (mg/dL) Random Glucose 106 Calcium 7.1 L Phosphorus 4.1 Magnesium 1.8 Total Bilirubin 1.5 H AST 174 H D ALT 649 H Alkaline Phosphatase 105 Total Protein 4.7 L Albumin 2.1 L Globulin 2.6 Albumin/Globulin Ratio 0.8 L 05/12/17 07:44 WBC RBC Hgb Hct MCV MCH MCHC RDW Plt Count MPV Gran % Lymph % (Auto) [place] % (Auto) Eos % (Auto) Baso % (Auto) Gran # Lymph # [place] # Eos # Baso # pCO2 pO2 HCO3 ABG pH ABG Total CO2 ABG O2 Saturation ABG O2 Content ABG Base Excess ABG Hemoglobin ABG Carboxyhemoglobin POC ABG HHb (Measured) ABG Methemoglobin ABG O2 Capacity Hgb O2 Saturation FiO2 Sodium Potassium Chloride Carbon Dioxide Anion Gap BUN Creatinine Est GFR ( Amer) Est GFR (Non-Af Amer) POC Glucose (mg/dL) 114 H Random Glucose Calcium Phosphorus Magnesium Total Bilirubin AST ALT Alkaline Phosphatase Total Protein Albumin Globulin Albumin/Globulin Ratio Critical Care Progress Note - Nutrition Nutrition: Nutrition Category Date Time Status NPO Diet [DIET] Diets 05/04/17 Breakfast Ordered <Germán Craig - Last Filed: 05/12/17 12:32> CCU Subjective - Physician Review Subjective (Free Text): 05/12/17 12:23 Patient seen and examined, on rounds with resident, agree with residents note, with following additions/exceptions: Patient is 77yo male with PMH of COPD, HTN, hyperglycemia, who presented originally with NSTEMI, hyponatremia subseuqently during hospital stay had drop in Hgb and found to have a gastric perforation, now POD#8 of repair, followed by septic shock with AG metabolic acidosis and MODS and then found to have extensive cerebral and cerebellar infarcts. Currently on PRVC, failed SBT today , became tachypneic, tachcyardic. Patient not extubatable, as he likely cannot protect his own airway, demonstrate ability to follow commands. Septic Shock, resolved Cerebral Infartcs/CVA Afib Fungemia Gastric perforation Recommend: - cont with ventilatory support, PS trials daily - Abx as per ID - repeat blood culture follow up - Hold BP meds - Cardizem PO - monitor HH - DC D5W - Lasix 40mg IV x 1 - NO A/C 2/2 gastric perf/GIB - GI ppx - DVT ppx, SCDs - awaiting social work regarding for possible emergnecy guardianship as patient has no next of kin vs [facility] transfer CCU Objective - Vital Signs / Intake & Output Vital Signs (Last 4 hours): Vital Signs Pulse BP 05/12/17 09:58 76 154/64 H Intake and Output (Last 8hrs): Intake & Output 05/11/17 05/12/17 05/12/17 22:59 06:59 14:59 Intake Total 1185 1420 Output Total 1150 840 Balance 35 580 Intake: IV 155 1420 Left Upper arm 1320 Right Hand 155 Tube Feeding 930 Other 100 Output: Drainage 150 40 Right Abdomen 150 40 Urine 1000 800 Urethral (V[place]la) 1000 800 Stool 0 - Medications Active Medications: Active Medications Generic Name Dose Route Start Last Admin Trade Name Freq PRN Reason Stop Dose Admin Albuterol/Ipratropium 3 ml 05/06/17 14:00 05/12/17 07:02 Duoneb 3 Mg/0.5 Mg (3 Ml) Ud IH 3 ml [id number] SILVIA Administration Chlorhexidine Gluconate 15 ml 05/05/17 11:00 05/11/17 18:30 Peridex PO 15 ml BID [facility] Administration Diltiazem HCl 60 mg 05/11/17 10:00 05/12/17 09:58 Cardizem PO 60 mg QID [facility] Administration Enoxaparin Sodium 30 mg 05/13/17 10:00 Lovenox SC DAILY [facility] Protocol Hydralazine HCl 10 mg 05/01/17 02:36 05/04/17 17:42 Apresoline IVP 10 mg Q6 PRN Administration SBP> 160 Dexmedetomidine HCl 400 mcg in 100 mls @ 4.264 mls/hr 05/07/17 11:22 06:04 Precedex 4 Mcg/Ml (100 Ml) IV 0.4 mcg/kg/hr .[id number] PRN 8.528 mls/hr Sedation Administration Protocol 0.2 MCG/KG/HR Micafungin Sodium 100 mg/ 100 mls @ 100 mls/hr 05/08/17 10:00 05/12/17 10:02 Sodium Chloride IV 100 mls/hr DAILY [facility] Administration Protocol Meropenem 50 mls @ 100 mls/hr 05/12/17 11:23 Merrem Iv 1 Gm Premix IVPB 05/13/17 10:16 Q12 [facility] Protocol Midazolam HCl 4 mg 05/04/17 18:44 05/06/17 04:40 Versed Inj IVP 4 mg Q4H PRN Administration Agitation Morphine Sulfate 2 mg 05/06/17 12:35 05/10/17 04:53 Morphine IVP 2 mg Q3H PRN Administration Pain, severe (8-10) Nitroglycerin 1 ea 05/02/17 00:00 05/12/17 06:03 Nitro-Bid 2% Oint TOP Not Given 0000,0600,1200,1800 [facility] Pantoprazole Sodium 40 mg 05/06/17 10:00 05/12/17 09:58 Protonix Inj IVP 40 mg Q12 [facility] Administration - Patient Studies Lab Studies: Microbiology Studies 05/07/17 11:45 Blood Culture - Final Blood NO GROWTH AFTER 5 DAYS Gram Stain - Final TEST NOT PERFORMED 05/07/17 11:30 Blood Culture - Final Blood NO GROWTH AFTER 5 DAYS Gram Stain - Final TEST NOT PERFORMED 05/09/17 08:44 Gram Stain - Final Trachasp Sputum Culture - Final NORMAL ORAL SHIRLENE Lab Studies 05/12/17 05/12/17 05/12/17 Range/Units 07:44 07:15 07:15 WBC 14.5 H (4.5-11.0) 10^3/ul RBC 3.39 L (3.5-6.1) 10^6/uL Hgb 10.8 L (14.0-18.0) g/dL Hct 33.2 L (42.0-52.0) % MCV 97.9 (80.0-105.0) fl MCH 31.9 (25.0-35.0) pg MCHC 32.5 (31.0-37.0) g/dl RDW 15.9 H (11.5-14.5) % Plt Count 177 (120.0-450.0) 10^3/uL MPV 11.6 H (7.0-11.0) fl Gran % 83.1 H (50.0-68.0) % Lymph % (Auto) 10.0 L (22.0-35.0) % [place] % (Auto) 5.5 (1.0-6.0) % Eos % (Auto) 1.3 L (1.5-5.0) % Baso % (Auto) 0.1 (0.0-3.0) % Gran # 12.02 H (1.4-6.5) Lymph # 1.5 (1.2-3.4) [place] # 0.8 H (0.1-0.6) Eos # 0.2 (0.0-0.7) Baso # 0.02 (0.0-2.0) K/mm3 pCO2 (35-45) mm/Hg pO2 (80-100) mm/Hg HCO3 (21-28) mmol/L ABG pH (7.35-7.45) ABG Total CO2 (22-28) mmol.L ABG O2 Saturation (95-98) % ABG O2 Content (15-23) ML/dl ABG Base Excess (-2.0-3.0) mmol/L ABG Hemoglobin (11.7-17.4) g/dL ABG Carboxyhemoglobin (0.5-1.5) % POC ABG HHb (Measured) (0-5) % ABG Methemoglobin (0.0-3.0) % ABG O2 Capacity (16-24) mL/dl Hgb O2 Saturation (95.0-98.0) % FiO2 % Sodium 143 (132-148) mmol/L Potassium 4.1 (3.6-5.0) mmol/L Chloride 111 H (95-110) mmol/L Carbon Dioxide 27 (21-33) mmol/L Anion Gap 9 L (10-20) BUN 68 H (7-21) mg/dL Creatinine 1.5 (0.8-1.5) mg/dL Est GFR ( Amer) 55 Est GFR (Non-Af Amer) 46 POC Glucose (mg/dL) 114 H (65-110) mg/dL Random Glucose 106 (70-110) mg/dL Calcium 7.1 L (8.4-10.5) mg/dL Phosphorus 4.1 (2.5-4.5) mg/dL Magnesium 1.8 (1.7-2.2) mg/dL Total Bilirubin 1.5 H (0.2-1.3) mg/dL AST 174 H D (17-59) U/L ALT 649 H (7-56) U/L Alkaline Phosphatase 105 (38-126) U/L Total Protein 4.7 L (5.8-8.3) g/dL Albumin 2.1 L (3.0-4.8) g/dL Globulin 2.6 gm/dL Albumin/Globulin Ratio 0.8 L (1.1-1.8) 05/12/17 Range/Units 05:30 WBC (4.5-11.0) 10^3/ul RBC (3.5-6.1) 10^6/uL Hgb (14.0-18.0) g/dL Hct (42.0-52.0) % MCV (80.0-105.0) fl MCH (25.0-35.0) pg MCHC (31.0-37.0) g/dl RDW (11.5-14.5) % Plt Count (120.0-450.0) 10^3/uL MPV (7.0-11.0) fl Gran % (50.0-68.0) % Lymph % (Auto) (22.0-35.0) % [place] % (Auto) (1.0-6.0) % Eos % (Auto) (1.5-5.0) % Baso % (Auto) (0.0-3.0) % Gran # (1.4-6.5) Lymph # (1.2-3.4) [place] # (0.1-0.6) Eos # (0.0-0.7) Baso # (0.0-2.0) K/mm3 pCO2 36 (35-45) mm/Hg pO2 115.0 H (80-100) mm/Hg HCO3 26.8 (21-28) mmol/L ABG pH 7.48 H (7.35-7.45) ABG Total CO2 27.9 (22-28) mmol.L ABG O2 Saturation 98.9 H (95-98) % ABG O2 Content 14.7 L (15-23) ML/dl ABG Base Excess 3.3 H (-2.0-3.0) mmol/L ABG Hemoglobin 10.8 L (11.7-17.4) g/dL ABG Carboxyhemoglobin 2.3 H (0.5-1.5) % POC ABG HHb (Measured) 1.1 (0-5) % ABG Methemoglobin 1.1 (0.0-3.0) % ABG O2 Capacity 14.9 L (16-24) mL/dl Hgb O2 Saturation 95.6 (95.0-98.0) % FiO2 40.0 % Sodium (132-148) mmol/L Potassium (3.6-5.0) mmol/L Chloride (95-110) mmol/L Carbon Dioxide (21-33) mmol/L Anion Gap (10-20) BUN (7-21) mg/dL Creatinine (0.8-1.5) mg/dL Est GFR ( Amer) Est GFR (Non-Af Amer) POC Glucose (mg/dL) (65-110) mg/dL Random Glucose (70-110) mg/dL Calcium (8.4-10.5) mg/dL Phosphorus (2.5-4.5) mg/dL Magnesium (1.7-2.2) mg/dL Total Bilirubin (0.2-1.3) mg/dL AST (17-59) U/L ALT (7-56) U/L Alkaline Phosphatase (38-126) U/L Total Protein (5.8-8.3) g/dL Albumin (3.0-4.8) g/dL Globulin gm/dL Albumin/Globulin Ratio (1.1-1.8) Laboratory Results - last 24 hr 05/12/17 05/12/17 05/12/17 05:30 07:15 07:15 WBC 14.5 H RBC 3.39 L Hgb 10.8 L Hct 33.2 L MCV 97.9 MCH 31.9 MCHC 32.5 RDW 15.9 H Plt Count 177 MPV 11.6 H Gran % 83.1 H Lymph % (Auto) 10.0 L [place] % (Auto) 5.5 Eos % (Auto) 1.3 L Baso % (Auto) 0.1 Gran # 12.02 H Lymph # 1.5 [place] # 0.8 H Eos # 0.2 Baso # 0.02 pCO2 36 pO2 115.0 H HCO3 26.8 ABG pH 7.48 H ABG Total CO2 27.9 ABG O2 Saturation 98.9 H ABG O2 Content 14.7 L ABG Base Excess 3.3 H ABG Hemoglobin 10.8 L ABG Carboxyhemoglobin 2.3 H POC ABG HHb (Measured) 1.1 ABG Methemoglobin 1.1 ABG O2 Capacity 14.9 L Hgb O2 Saturation 95.6 FiO2 40.0 Sodium 143 Potassium 4.1 Chloride 111 H Carbon Dioxide 27 Anion Gap 9 L BUN 68 H Creatinine 1.5 Est GFR ( Amer) 55 Est GFR (Non-Af Amer) 46 POC Glucose (mg/dL) Random Glucose 106 Calcium 7.1 L Phosphorus 4.1 Magnesium 1.8 Total Bilirubin 1.5 H AST 174 H D ALT 649 H Alkaline Phosphatase 105 Total Protein 4.7 L Albumin 2.1 L Globulin 2.6 Albumin/Globulin Ratio 0.8 L 05/12/17 07:44 WBC RBC Hgb Hct MCV MCH MCHC RDW Plt Count MPV Gran % Lymph % (Auto) [place] % (Auto) Eos % (Auto) Baso % (Auto) Gran # Lymph # [place] # Eos # Baso # pCO2 pO2 HCO3 ABG pH ABG Total CO2 ABG O2 Saturation ABG O2 Content ABG Base Excess ABG Hemoglobin ABG Carboxyhemoglobin POC ABG HHb (Measured) ABG Methemoglobin ABG O2 Capacity Hgb O2 Saturation FiO2 Sodium Potassium Chloride Carbon Dioxide Anion Gap BUN Creatinine Est GFR ( Amer) Est GFR (Non-Af Amer) POC Glucose (mg/dL) 114 H Random Glucose Calcium Phosphorus Magnesium Total Bilirubin AST ALT Alkaline Phosphatase Total Protein Albumin Globulin Albumin/Globulin Ratio Critical Care Progress Note - Nutrition Nutrition: Nutrition Category Date Time Status NPO Diet [DIET] Diets 05/04/17 Breakfast Ordered
--- NOTE | 2017-05-12 12:44 | RAD ---
HISTORY: intubated COMPARISON: 05/11/2017 FINDINGS: LUNGS: Hazy bilateral lower lobe infiltrates and small effusions showing slight improvement . Endotracheal tube in satisfactory position PLEURA: No significant pleural effusion identified, no pneumothorax apparent. CARDIOVASCULAR: Normal. OSSEOUS STRUCTURES: No significant abnormalities. VISUALIZED UPPER ABDOMEN: Nasogastric tube in satisfactory position. OTHER FINDINGS: None. IMPRESSION: Hazy bilateral lower lobe infiltrates and small effusions showing slight improvement
--- NOTE | 2017-05-12 13:07 | PN ---
SUBJECTIVE: The patient is lying on bed on the ventilator, in no acute distress. PHYSICAL EXAMINATION: VITAL SIGNS: His blood pressure is 154/64, heart rate is 76 per minute, breathing at the rate of 18 per minute and his temperature is 98.2 degree Fahrenheit. HEENT: Head is normocephalic and atraumatic. NECK: Supple. There are no carotid bruits. LUNGS: Clear. CARDIOPULMONARY: S1 and S2 audible. No murmurs. ABDOMEN: Soft and nontender. Bowel sounds are present. NEUROLOGIC: Mental status: The patient is awake. He looks at the examiner, does not follow any commands. Cranial nerve examination: Pupils are 2 mm reactive to light. There is no facial asymmetry. Motor examination: He has decreased tone in his upper extremities. He withdraws his lower extremities to noxious stimuli. There is no withdrawal of upper extremities to noxious stimuli. Plantars, no response. LABORATORY DATA: Reviewed, shows WBC of 14.5, hemoglobin of 10.8, hematocrit 33.2 and platelets of 177. His sodium is 143, potassium 4.1, chloride 111, carbon dioxide content of 27, BUN of 68, creatinine of 1.5 and glucose of 114. IMPRESSION: 1. Cerebrovascular accident with bilateral watershed infarcts. 2. Respiratory failure. 3. Sepsis. 4. Renal failure. 5. Status post abdominal surgery. RECOMMENDATIONS: 1. The patient is unable to communicate and does not follow any commands. 2. The patient is on IV antibiotics for his sepsis. 3. The patient is on Lovenox for DVT prophylaxis. 4. Consider starting the patient on rectal aspirin, if no other contraindication. 5. Please continue supportive care and treatment. 6. The patient's DNR status is noted. Thank you for the opportunity to participate in the care of this patient. Twila Rivera MD
--- NOTE | 2017-05-12 13:21 | PN ---
SUBJECTIVE: The patient is intubated. PHYSICAL EXAMINATION: VITAL SIGNS: Temperature is 98.2, pulse of 58, blood pressure 116/50, respirations 18. GENERAL: The patient is lying in bed, flat, comfortable. HEENT: No oral lesion. Anicteric sclerae. Moist mucosa. NECK: No JVD, adenopathy, or thyromegaly. CARDIOVASCULAR: S1 and S2, regular. No murmurs, rubs, or gallops. LUNGS: Clear to auscultation bilaterally. No wheeze, rales, or rhonchi. ABDOMEN: Bowel sounds are positive, soft, nontender and nondistended. EXTREMITIES: No cyanosis, clubbing or edema. LABORATORY DATA: White count 14.5, hemoglobin 10.8, creatinine is 1.5. Chest x-ray done shows bilateral lower lobe infiltrates unchanged. ASSESSMENT: 1. Sepsis, improving. 2. Non-ST elevation myocardial infarction. 3. Septic shock. 4. Atrial fibrillation. 5. Transaminitis, improving. 6. Cerebrovascular accident with posterior parietal lobe involvement. 7. Hypernatremia, improved. 8. Hypokalemia, improved. 9. Fungemia. 10. Fall. PLAN: The patient is currently intubated. He is on IV fluids. The patient's creatinine has improved significantly. The patient's sodium is also improving. I will discontinue the patient's IV fluids and place him on 3 water boluses. He does have NG tube. He is going to continue with micafungin for his fungemia. His amlodipine has been on hold because of hypotension. He is on Protonix daily. The patient is on nebulizer treatments. He is on BiPAP. Overall prognosis is poor. He has no family. Jarocho Bowser MD
--- NOTE | 2017-05-12 13:46 | PN ---
DATE: 05/12/2017 REASON FOR CONSULTATION AND FOLLOWUP: Status post acute abdomen, status post gastric perforation, status post wedge resection and repair of his stomach, hypotension, paroxysmal atrial fibrillation, rule out anoxic encephalopathy, vent dependent. SUBJECTIVE: Patient remains on vent, paroxysmal atrial fibrillation, now patient is in normal sinus, but goes back and forth into AFib, comatose, and not responding to the verbal stimuli, sometime opens eyes spontaneously on vent. PHYSICAL EXAMINATION: GENERAL: He remains on vent, not in apparent distress. VITAL SIGNS: Temperature afebrile, heart rate 58, blood pressure 116/58. HEENT: PERRLA. Extraocular muscles intact. NECK: Supple. No carotid bruits or thyromegaly. CHEST: Clear to auscultation. HEART: S1 and S2. Regular. ABDOMEN: Soft. EXTREMITIES: Clubbing and cyanosis negative. LABORATORY DATA: WBC 14.5, hemoglobin 10.8, hematocrit 33.2, platelet count 177. Chemistry shows sodium 143, potassium 4.0, chloride 111, carbon dioxide 27, anion gap of 9, BUN 68, creatinine 1.5. Total protein 4.7, albumin 2.1, albumin-globulin ratio 0.8. IMPRESSION: A 77-year-old male admitted for fall, hyponatremia, gastrointestinal bleed, acute gastric perforation, status post exploratory laparotomy; coronary artery disease, non-ST segment myocardial infarction, protein-calorie malnutrition, severe, which was not present during admission; paroxysmal atrial fibrillation, hyponatremia, resolved; possible anoxic encephalopathy, renal insufficiency, improving. RECOMMENDATIONS: Continue NG feeding. Continue Cardizem at 60 mg q.i.d. Status post exploratory laparotomy and GI bleed. We will discuss with surgical, if it is okay with surgery, we can start DVT prophylaxis to prevent PE, DVT. We will follow. Overall, patient's condition is critical. Long-term prognosis is guarded. Consider administrative PEG and trach. His H and H has been stable for last couple of days. We will consider DVT prophylaxis. We will discuss with surgery for DVT prophylaxis. Interim, continue Cardizem 60 mg q.6 hours, continue antibiotic, continue vent management. We will follow with you. We will discontinue Norvasc and continue Cardizem. Supa Nick MD [facility] # [phone]
--- NOTE | 2017-05-12 18:16 | CP.PCM.PN ---
<Ana Freeman - Last Filed: 05/12/17 18:13> Subjective - Date & Time of Evaluation Date of Evaluation: 05/12/17 Time of Evaluation: 09:30 - Subjective Subjective: Seen and examined at the bedside earlier today, the chart was reviewed. Patient remains intubated and eyes open but unable to follow commands. Remains with NG tube, which feedings at 60 cc an hour. Patient reported to have formed stool, rectal tube DC'd. No reports of melena or bright red blood. Objective - Vital Signs/Intake and Output Vital Signs (last 24 hours): Temp Pulse Resp BP Pulse Ox 99.3 F 126 H 18 148/56 L 100 05/12/17 16:00 05/12/17 17:22 05/12/17 07:05 05/12/17 17:22 05/12/17 16:00 Intake and Output: 05/12/17 05/12/17 06:59 18:59 Intake Total 1420 Output Total 840 Balance 580 - Medications Medications: Current Medications Albuterol/Ipratropium (Duoneb 3 Mg/0.5 Mg (3 Ml) Ud) 3 ml IH [id number] [facility] Last Admin: 05/12/17 13:24 Dose: 3 ml Chlorhexidine Gluconate (Peridex) 15 ml PO BID [facility] Last Admin: 05/12/17 17:26 Dose: 15 ml Diltiazem HCl (Cardizem) 60 mg PO QID [facility] Last Admin: 05/12/17 17:22 Dose: 60 mg Enoxaparin Sodium (Lovenox) 30 mg SC DAILY [facility] PRN Reason: Protocol Hydralazine HCl (Apresoline) 10 mg IVP Q6 PRN PRN Reason: SBP> 160 Last Admin: 05/04/17 17:42 Dose: 10 mg Dexmedetomidine HCl (Precedex 4 Mcg/Ml (100 Ml)) 400 mcg in 100 mls @ 4.264 mls /hr IV .[id number] PRN; Protocol; 0.2 MCG/KG/HR PRN Reason: Sedation Last Admin: 05/12/17 06:04 Dose: 0.4 mcg/kg/hr, 8.528 mls/hr Micafungin Sodium 100 mg/ (Sodium Chloride) 100 mls @ 100 mls/hr IV DAILY [facility] PRN Reason: Protocol Last Admin: 05/12/17 10:02 Dose: 100 mls/hr Meropenem (Merrem Iv 1 Gm Premix) 50 mls @ 100 mls/hr IVPB Q12 [facility] PRN Reason: Protocol Stop: 05/13/17 10:16 Midazolam HCl (Versed Inj) 4 mg IVP Q4H PRN PRN Reason: Agitation Last Admin: 05/06/17 04:40 Dose: 4 mg Morphine Sulfate (Morphine) 2 mg IVP Q3H PRN PRN Reason: Pain, severe (8-10) Last Admin: 05/10/17 04:53 Dose: 2 mg Nitroglycerin (Nitro-Bid 2% Oint) 1 ea TOP 0000,0600,1200,1800 [facility] Last Admin: 05/12/17 17:23 Dose: 1 ea Pantoprazole Sodium (Protonix Inj) 40 mg IVP Q12 [facility] Last Admin: 05/12/17 09:58 Dose: 40 mg - Labs Labs: 05/12/17 07:15 05/12/17 07:15 PT 19.0 SECONDS (9.4-12.5) H 05/09/17 06:40 INR 1.71 (0.93-1.08) H 05/09/17 06:40 APTT 32.9 Seconds (23.7-30.8) H 05/06/17 04:45 - Constitutional Appears: No Acute Distress - Head Exam Head Exam: NORMOCEPHALIC - Eye Exam Eye Exam: Normal appearance. absent: Scleral icterus - ENT Exam ENT Exam: Mucous Membranes Moist Additional comments: intubated, positive OG tube - Neck Exam Neck Exam: Normal Inspection - Respiratory Exam Respiratory Exam: NORMAL BREATHING PATTERN. absent: Respiratory Distress - Cardiovascular Exam Cardiovascular Exam: +S1, +S2 - GI/Abdominal Exam GI & Abdominal Exam: Soft, Normal Bowel Sounds. absent: Organomegaly Additional comments: surgical incision with angela open to air, dry and intact - Extremities Exam Extremities Exam: Normal Capillary Refill - Neurological Exam Neurological Exam: Awake (nonverbal, doesn't follow commands) - Skin Skin Exam: Dry, Warm Assessment and Plan - Assessment and Plan (Free Text) Assessment: Assessment: Respiratory failure, remains intubated GI bleed, found to have perforated gastric ulcer,s/p gastric wedge ulcer Acute cerebral infarct Bilateral pleural effusion/consolidation Acute renal failure Atrial fibrillation with RVR h/o chronic alcohol use Anemia, s/p blood transfusion Elevated LFT,likely secondary to shock liver Status post fall,w/ multiple rib fractures S/P Hyponatremia NSTEMI COPD H/O Colon polyps PLAN: NPO, continue IVF Continue NG tube feeds at 60, monitor residual continue PPI on IV antibiotics as per ID On Precedex the start Lovenox in a.m. SCD to lower extremities monitor h/h, Transfuse as necessary trend LFT/PT/INR as per surgery, icu team, ID Seen and discussed with Dr. Lemus. <Matthew Lemus V - Last Filed: 05/12/17 22:22> Objective - Vital Signs/Intake and Output Vital Signs (last 24 hours): Temp Pulse Resp BP Pulse Ox 99.2 F 84 18 119/42 L 100 05/12/17 18:00 05/12/17 21:33 05/12/17 07:05 05/12/17 21:33 05/12/17 16:00 Intake and Output: 05/12/17 05/13/17 18:59 06:59 Intake Total 1380 Output Total 2300 Balance -920 - Medications Medications: Current Medications Albuterol/Ipratropium (Duoneb 3 Mg/0.5 Mg (3 Ml) Ud) 3 ml IH [id number] [facility] Last Admin: 05/12/17 19:48 Dose: 3 ml Chlorhexidine Gluconate (Peridex) 15 ml PO BID [facility] Last Admin: 05/12/17 17:26 Dose: 15 ml Diltiazem HCl (Cardizem) 60 mg PO QID [facility] Last Admin: 05/12/17 21:33 Dose: 60 mg Enoxaparin Sodium (Lovenox) 30 mg SC DAILY [facility] PRN Reason: Protocol Hydralazine HCl (Apresoline) 10 mg IVP Q6 PRN PRN Reason: SBP> 160 Last Admin: 05/04/17 17:42 Dose: 10 mg Dexmedetomidine HCl (Precedex 4 Mcg/Ml (100 Ml)) 400 mcg in 100 mls @ 4.264 mls /hr IV .[id number] PRN; Protocol; 0.2 MCG/KG/HR PRN Reason: Sedation Last Admin: 05/12/17 22:13 Dose: 0.4 mcg/kg/hr, 8.528 mls/hr Micafungin Sodium 100 mg/ (Sodium Chloride) 100 mls @ 100 mls/hr IV DAILY [facility] PRN Reason: Protocol Last Admin: 05/12/17 10:02 Dose: 100 mls/hr Meropenem (Merrem Iv 1 Gm Premix) 50 mls @ 100 mls/hr IVPB Q12 [facility] PRN Reason: Protocol Stop: 05/13/17 10:16 Last Admin: 05/12/17 21:34 Dose: 100 mls/hr Midazolam HCl (Versed Inj) 4 mg IVP Q4H PRN PRN Reason: Agitation Last Admin: 05/06/17 04:40 Dose: 4 mg Morphine Sulfate (Morphine) 2 mg IVP Q3H PRN PRN Reason: Pain, severe (8-10) Last Admin: 05/10/17 04:53 Dose: 2 mg Nitroglycerin (Nitro-Bid 2% Oint) 1 ea TOP 0000,0600,1200,1800 [facility] Last Admin: 05/12/17 17:23 Dose: 1 ea Pantoprazole Sodium (Protonix Inj) 40 mg IVP Q12 [facility] Last Admin: 05/12/17 21:33 Dose: 40 mg - Labs Labs: 05/12/17 07:15 05/12/17 07:15 PT 19.0 SECONDS (9.4-12.5) H 05/09/17 06:40 INR 1.71 (0.93-1.08) H 05/09/17 06:40 APTT 32.9 Seconds (23.7-30.8) H 05/06/17 04:45 Attending/Attestation - Attestation I have personally seen and examined this patient.: Yes I have fully participated in the care of the patient.: Yes I have reviewed all pertinent clinical information, including history, physical exam and plan: Yes Notes (Text): This is an addendum to GI progress report dictated by Ana Freeman APN.The patient was seen and examined earlier. Medical records, lab studies, imagings were reviewed. Last 24 hours events reviewed. Agreed with the above treatment plan as outlined in Ana Freeman APN's notes the with the addition of the following Patient still remains underwent. Tolerating NG feeding. No active bleeding. Hemoglobin stable. LFT improving Plan for transfer to LTAC Reduce PPI to once daily and continue to closely follow hemoglobin and hematocrit 05/12/17 22:21
[2017-05-12 19:03] VITALS: TEMP 99.2
[2017-05-12] MEDS: Meropenem IV 1 gm in NS 50 ML IVPB SCH (21:34)
[2017-05-13] MEDS: Nitroglycerin 2% Ointment Foilpak UD TOP SCH ×2 (00:50→05:42)
[2017-05-13] MEDS: Albuterol-Ipratrop 3 mg / 0.5 (3 ml) UD IH SCH ×2 (01:06→07:08)
[2017-05-13 05:49] LABS: ARTERIAL BLOOD GAS HCO3 27.7 mmol/L (21-28); ARTERIAL BLOOD GAS O2 CAPACITY 15.1 mL/dl (16-24); ARTERIAL BLOOD GAS PH 7.47 (7.35-7.45); ARTERIAL BLOOD HGB O2 SAT 96.2 % (95.0-98.0); CARBOXYHEMOGLOBIN 1.8 % (0.5-1.5); HHB 0.9 % (0-5); METHEMOGLOBIN 1.1 % (0.0-3.0)
[2017-05-13 05:57] LABS: HEMATOCRIT 36.3 % (42.0-52.0); MEAN CELL VOLUME 98.6 fl (80.0-105.0); MEAN CORPUSCULAR HEMOGLOBIN 32.3 pg (25.0-35.0); MEAN CORPUSCULAR HGB CONC 32.8 g/dl (31.0-37.0); MEAN PLATELET VOLUME 11.3 fl (7.0-11.0); RED CELL DISTRIBUTION WIDTH 15.9 % (11.5-14.5); WHITE BLOOD COUNT 15.1 10^3/ul (4.5-11.0)
[2017-05-13 05:58] LABS: ALB/GLOB RATIO 0.8 (1.1-1.8); ALKALINE PHOSPHATASE 139 U/L (38-126); ALT/SGPT 527 U/L (7-56); AST/SGOT 127 U/L (17-59); BILIRUBIN,TOTAL 1.5 mg/dL (0.2-1.3); BLOOD UREA NITROGEN 60 mg/dL (7-21); CALCIUM 7.8 mg/dL (8.4-10.5); CARBON DIOXIDE 28 mmol/L (21-33); CHLORIDE 111 mmol/L (95-110); GFR AFRICAN-AMERICAN > 60; GLUCOSE,RANDOM 107 mg/dL (70-110); MAGNESIUM 1.7 mg/dL (1.7-2.2); PHOSPHOROUS 3.8 mg/dL (2.5-4.5); SODIUM 146 mmol/L (132-148); TOTAL PROTEIN 5.6 g/dL (5.8-8.3)
[2017-05-13 06:56] VITALS: RESP 17; O2SAT 100
--- NOTE | 2017-05-13 09:21 | CP.CCUPN ---
Addendum entered and electronically signed by Colton Guidry DO 05/13/17 11:45: GI/DVT ppx: Protonix/SCDs and Lovenox 30 Original Note: <Colton Guidry - Last Filed: 05/13/17 11:03> CCU Subjective - Physician Review Subjective (Free Text): 05/13/17 09:18 Colton Guidry D.O. PGY-2, Critical Care Progress Note 77 year old male with PMH of COPD, HTN, hyperglycemia, who presented to [facility] on 04/30/17. Patient was seen and examined at bedside. Patient continues to be intubated and is unable to follow commands and as such no information could be obtained from him. Yesterday patient was made DNR. CCU Objective - Vital Signs / Intake & Output Vital Signs (Last 4 hours): Vital Signs Pulse Resp BP Pulse Ox 05/13/17 08:00 85 130/74 100 05/13/17 07:00 90 114/56 L 100 05/13/17 06:55 17 100 05/13/17 06:05 154 H 05/13/17 06:04 156 H 05/13/17 06:03 153 H 05/13/17 06:00 139 H 141/88 81 L 05/13/17 05:24 113 H 05/13/17 05:23 101 H 05/13/17 05:22 100 H 05/13/17 05:21 125 H 05/13/17 05:20 101 H 05/13/17 05:19 102 H Intake and Output (Last 8hrs): Intake & Output 05/12/17 05/13/17 05/13/17 22:59 06:59 14:59 Intake Total 1380 163 Output Total 2300 1150 Balance -920 -987 Weight 107.547 kg Intake: IV 360 163 Left Upper arm 260 100 Tube Feeding 720 Other 300 Output: Urine 2300 1150 Urethral (V[place]la) 2300 1150 Other: # Bowel Movements 2 - Physical Exam Head: Positive for: Atraumatic, Normocephalic Pupils: Positive for: Other (dilated ~6mm BL, reactive L>R). Negative for: Non- Reactive, Pinpoint Extroacular Muscles: Positive for: Other (not following commands) Conjunctiva: Positive for: Normal. Negative for: Injected, Icteric Mouth: Positive for: Moist Mucous Membranes, Normal Lips, Normal Tounge Nose (External): Positive for: Atraumatic, Other (NGT). Negative for: Abrasion , Contusion, Laceration Neck: Positive for: Trachea Midline. Negative for: JVD, Lymphadenopathy Respiratory/Chest: Positive for: Clear to Auscultation, Good Air Exchange, Other (intubated). Negative for: Respiratory Distress, Wheezes, Rales, Rhonchi Cardiovascular: Positive for: Regular Rate and Rhythm, Normal S1, S2. Negative for: Murmurs, Tachycardic, Bradycardic, Rub, Gallop Abdomen: Positive for: Tenderness, Other (s/p ex lap surgical dressing midline c /d/i with angela in place). Negative for: Distention, Peritoneal Signs Rectal: Positive for: Other (rectal tube in place with bag collection of scant green liquid stool) Genitourinary Male: Positive for: Normal External Genitalia, Other (villela catheter in place ) Upper Extremity: Positive for: Normal Inspection, Edema (+1), Swelling. Negative for: Cyanosis, Erythema, Deformity Lower Extremity: Positive for: Edema (+1), Swelling. Negative for: CALF TENDERNESS, Cyanosis, Tenderness, Erythema, Deformity, Capillary Refill < 2 s Neurological: Positive for: Other (unchanged, intubated, opens eyes to verbal stimuli, no tracking, unable to follow commands, corneal reflex present, pupils sluggish and slightly reactive, withdraws to pain to LE but not UE ) Skin: Positive for: Warm, Dry, Normal Color. Negative for: Rashes - Medications Active Medications: Active Medications Generic Name Dose Route Start Last Admin Trade Name Freq PRN Reason Stop Dose Admin Albuterol/Ipratropium 3 ml 05/06/17 14:00 05/13/17 07:08 Duoneb 3 Mg/0.5 Mg (3 Ml) Ud IH 3 ml [id number] SILVIA Administration Chlorhexidine Gluconate 15 ml 05/05/17 11:00 05/12/17 17:26 Peridex PO 15 ml BID SILVIA Administration Diltiazem HCl 60 mg 05/11/17 10:00 05/12/17 21:33 Cardizem PO 60 mg QID SILVIA Administration Enoxaparin Sodium 30 mg 05/13/17 10:00 Lovenox SC DAILY SILVIA Protocol Hydralazine HCl 10 mg 05/01/17 02:36 05/04/17 17:42 Apresoline IVP 10 mg Q6 PRN Administration SBP> 160 Dexmedetomidine HCl 400 mcg in 100 mls @ 4.264 mls/hr 05/07/17 11:22 06:14 Precedex 4 Mcg/Ml (100 Ml) IV 0.4 mcg/kg/hr .[id number] PRN 8.528 mls/hr Sedation Titration Protocol 0.2 MCG/KG/HR Micafungin Sodium 100 mg/ 100 mls @ 100 mls/hr 05/08/17 10:00 05/12/17 10:02 Sodium Chloride IV 100 mls/hr DAILY SILVIA Administration Protocol Meropenem 50 mls @ 100 mls/hr 05/12/17 11:23 05/12/17 21:34 Merrem Iv 1 Gm Premix IVPB 05/13/17 10:16 100 mls/hr Q12 SILVIA Administration Protocol Midazolam HCl 4 mg 05/04/17 18:44 05/06/17 04:40 Versed Inj IVP 4 mg Q4H PRN Administration Agitation Morphine Sulfate 2 mg 05/06/17 12:35 05/10/17 04:53 Morphine IVP 2 mg Q3H PRN Administration Pain, severe (8-10) Nitroglycerin 1 ea 05/02/17 00:00 05/13/17 05:42 Nitro-Bid 2% Oint TOP 1 ea 0000,0600,1200,1800 SILVIA Administration Pantoprazole Sodium 40 mg 05/06/17 10:00 05/12/17 21:33 Protonix Inj IVP 40 mg Q12 SILVIA Administration - Patient Studies Lab Studies: Microbiology Studies 05/07/17 11:45 Blood Culture - Final Blood NO GROWTH AFTER 5 DAYS Gram Stain - Final TEST NOT PERFORMED 05/07/17 11:30 Blood Culture - Final Blood NO GROWTH AFTER 5 DAYS Gram Stain - Final TEST NOT PERFORMED Lab Studies 05/13/17 05/13/17 05/13/17 Range/Units 05:35 05:20 05:20 WBC 15.1 H (4.5-11.0) 10^3/ul RBC 3.68 (3.5-6.1) 10^6/uL Hgb 11.9 L (14.0-18.0) g/dL Hct 36.3 L (42.0-52.0) % MCV 98.6 (80.0-105.0) fl MCH 32.3 (25.0-35.0) pg MCHC 32.8 (31.0-37.0) g/dl RDW 15.9 H (11.5-14.5) % Plt Count 220 (120.0-450.0) 10^3/uL MPV 11.3 H (7.0-11.0) fl pCO2 38 (35-45) mm/Hg pO2 108.0 H (80-100) mm/Hg HCO3 27.7 (21-28) mmol/L ABG pH 7.47 H (7.35-7.45) ABG Total CO2 28.9 H (22-28) mmol.L ABG O2 Saturation 99.1 H (95-98) % ABG O2 Content 15.0 (15-23) ML/dl ABG Base Excess 3.8 H (-2.0-3.0) mmol/L ABG Hemoglobin 11.0 L (11.7-17.4) g/dL ABG Carboxyhemoglobin 1.8 H (0.5-1.5) % POC ABG HHb (Measured) 0.9 (0-5) % ABG Methemoglobin 1.1 (0.0-3.0) % ABG O2 Capacity 15.1 L (16-24) mL/dl Hgb O2 Saturation 96.2 (95.0-98.0) % FiO2 40.0 % Sodium 146 (132-148) mmol/L Potassium 4.0 (3.6-5.0) mmol/L Chloride 111 H (95-110) mmol/L Carbon Dioxide 28 (21-33) mmol/L Anion Gap 11 (10-20) BUN 60 H (7-21) mg/dL Creatinine 1.3 (0.8-1.5) mg/dL Est GFR ( Amer) > 60 Est GFR (Non-Af Amer) 54 Random Glucose 107 (70-110) mg/dL Calcium 7.8 L (8.4-10.5) mg/dL Phosphorus 3.8 (2.5-4.5) mg/dL Magnesium 1.7 (1.7-2.2) mg/dL Total Bilirubin 1.5 H (0.2-1.3) mg/dL AST 127 H D (17-59) U/L ALT 527 H (7-56) U/L Alkaline Phosphatase 139 H D (38-126) U/L Total Protein 5.6 L (5.8-8.3) g/dL Albumin 2.4 L (3.0-4.8) g/dL Globulin 3.1 gm/dL Albumin/Globulin Ratio 0.8 L (1.1-1.8) Laboratory Results - last 24 hr 05/13/17 05/13/17 05/13/17 05:20 05:20 05:35 WBC 15.1 H RBC 3.68 Hgb 11.9 L Hct 36.3 L MCV 98.6 MCH 32.3 MCHC 32.8 RDW 15.9 H Plt Count 220 MPV 11.3 H pCO2 38 pO2 108.0 H HCO3 27.7 ABG pH 7.47 H ABG Total CO2 28.9 H ABG O2 Saturation 99.1 H ABG O2 Content 15.0 ABG Base Excess 3.8 H ABG Hemoglobin 11.0 L ABG Carboxyhemoglobin 1.8 H POC ABG HHb (Measured) 0.9 ABG Methemoglobin 1.1 ABG O2 Capacity 15.1 L Hgb O2 Saturation 96.2 FiO2 40.0 Sodium 146 Potassium 4.0 Chloride 111 H Carbon Dioxide 28 Anion Gap 11 BUN 60 H Creatinine 1.3 Est GFR ( Amer) > 60 Est GFR (Non-Af Amer) 54 Random Glucose 107 Calcium 7.8 L Phosphorus 3.8 Magnesium 1.7 Total Bilirubin 1.5 H AST 127 H D ALT 527 H Alkaline Phosphatase 139 H D Total Protein 5.6 L Albumin 2.4 L Globulin 3.1 Albumin/Globulin Ratio 0.8 L Critical Care Progress Note - Nutrition Nutrition: Nutrition Category Date Time Status NPO Diet [DIET] Diets 05/04/17 Breakfast Ordered Assessment/Plan - Assessment and Plan (Free Text) Assessment: 77 year old male with PMH of COPD, HTN, hyperglycemia, who presented originally for a fall, subsequently found to have an NSTEMI as well hyponatremia and hypokalemia who later developed a drop in Hgb and tachycardia and found to have a gastric perforation, now POD#9 of exlap for wedge resection and repair, who then later had septic shock with AG metabolic acidosis and MODS and then found to have extensive cerebral and cerebellar infarcts. Plan: Neurological Neuro Dr. Rivera following, recs appreciated MRI showed showed diffuse bilateral strokes likely 2/2 hypotension from septic shock Status unchanged, GCS 9T (4 eyes, 4 motor only lower extremities, 1T verbal) but no tracking or alertness Monitoring closely Cardiovascular Cardio Dr. Nick following, recs appreciated Off pressor and antihypertensives A-fib now rate controlled, off Amiodarone 2/2 shock liver, on cardizem PO NSTEMI but not on AC 2/2 CVA and perforated gastric ulcer Cardio Dr. Nick following, recs appreciated Off statin 2/2 shock liver Pulmonologic Respiratory failure, intubated PRVC 450/16/5/40%, sedated on precedex 0.4, ABG reviewed Failed CPAP trial yesterday Cont merrem D9 Daily weaning trials and sedation vacation HOB elevated GI Perforated gastric ulcer s/p ex lap with wedge resection, surgery Dr. Mccrary following, POD #9 Cont protonix 40 q12 Shock liver 2/2 septic shock with hypotension, transaminitis improving, continue to avoid hepatotoxic medications GI Dr. Lemus following, recs appreciated Nephro/Electrolytes JADEN 2/2 hypotension from septic shock improving BUN and Cr improving Following urine output closely Heme S/p 4U PRBCs Hgb stable Hemodynamically stable Continue to monitor Villlea in place Strict IxOs ID Septic shock resolved ID Dr. Rosario following, recs appreciated BCxs + for Chandrika, on micafungin D6, Optho consulted for eval Cont merem D9 Afebrile Repeat BCxs - x2 D5 Dispo: patient continues to have very poor prognosis at this time, multiple comorbidities. Krystal Cruz TECHNICAL ENGINEER on the case and patient was made DNR/DNI yesterday. Ethics committee consult. DIMITRIOS involved as well, accepted to LTAC and pending court appointed guardianship. DIMITRIOS spoke with landlords who checked house and assure that patient has no family or anyone else that can make decisions for him. Patient was seen and case was discussed at length with attending physician. - Date & Time Date: 05/13/17 Time: 07:40 <Giovanni Huang - Last Filed: 05/13/17 13:40> CCU Objective - Vital Signs / Intake & Output Vital Signs (Last 4 hours): Vital Signs Pulse BP Pulse Ox 05/13/17 12:00 77 126/57 L 100 05/13/17 11:30 79 125/55 L 100 05/13/17 11:00 90 129/65 100 05/13/17 10:30 98 H 133/65 100 05/13/17 10:23 83 120/60 05/13/17 10:00 79 120/60 100 05/13/17 09:55 80 117/48 L 100 Intake and Output (Last 8hrs): Intake & Output 05/12/17 05/13/17 05/13/17 22:59 06:59 14:59 Intake Total 1380 163 Output Total 2300 1150 Balance -920 -987 Weight 237 lb 1.6 oz 237 lb Intake: IV 360 163 Left Upper arm 260 100 Tube Feeding 720 Other 300 Output: Urine 2300 1150 Urethral (Villela) 2300 1150 Other: # Bowel Movements 2 - Medications Active Medications: Active Medications Generic Name Dose Route Start Last Admin Trade Name Freq PRN Reason Stop Dose Admin Albuterol/Ipratropium 3 ml 05/06/17 14:00 05/13/17 07:08 Duoneb 3 Mg/0.5 Mg (3 Ml) Ud IH 3 ml [id number] SILVIA Administration Chlorhexidine Gluconate 15 ml 05/05/17 11:00 05/12/17 17:26 Peridex PO 15 ml BID SILVIA Administration Diltiazem HCl 60 mg 05/11/17 10:00 05/13/17 10:23 Cardizem PO 60 mg QID SILVIA Administration Enoxaparin Sodium 30 mg 05/13/17 10:00 05/13/17 09:53 Lovenox SC 30 mg DAILY SILVIA Administration Protocol Hydralazine HCl 10 mg 05/01/17 02:36 05/04/17 17:42 Apresoline IVP 10 mg Q6 PRN Administration SBP> 160 Dexmedetomidine HCl 400 mcg in 100 mls @ 4.264 mls/hr 05/07/17 11:22 06:14 Precedex 4 Mcg/Ml (100 Ml) IV 0.4 mcg/kg/hr .[id number] PRN 8.528 mls/hr Sedation Titration Protocol 0.2 MCG/KG/HR Micafungin Sodium 100 mg/ 100 mls @ 100 mls/hr 05/08/17 10:00 05/13/17 09:52 Sodium Chloride IV 100 mls/hr DAILY SILVIA Administration Protocol Midazolam HCl 4 mg 05/04/17 18:44 05/06/17 04:40 Versed Inj IVP 4 mg Q4H PRN Administration Agitation Morphine Sulfate 2 mg 05/06/17 12:35 05/10/17 04:53 Morphine IVP 2 mg Q3H PRN Administration Pain, severe (8-10) Nitroglycerin 1 ea 05/02/17 00:00 05/13/17 05:42 Nitro-Bid 2% Oint TOP 1 ea 0000,0600,1200,1800 SILVIA Administration Pantoprazole Sodium 40 mg 05/06/17 10:00 05/13/17 09:53 Protonix Inj IVP 40 mg Q12 SILVIA Administration - Patient Studies Lab Studies: Microbiology Studies 05/07/17 11:45 Blood Culture - Final Blood NO GROWTH AFTER 5 DAYS Gram Stain - Final TEST NOT PERFORMED 05/07/17 11:30 Blood Culture - Final Blood NO GROWTH AFTER 5 DAYS Gram Stain - Final TEST NOT PERFORMED Lab Studies 05/13/17 05/13/17 05/13/17 Range/Units 05:35 05:20 05:20 WBC 15.1 H (4.5-11.0) 10^3/ul RBC 3.68 (3.5-6.1) 10^6/uL Hgb 11.9 L (14.0-18.0) g/dL Hct 36.3 L (42.0-52.0) % MCV 98.6 (80.0-105.0) fl MCH 32.3 (25.0-35.0) pg MCHC 32.8 (31.0-37.0) g/dl RDW 15.9 H (11.5-14.5) % Plt Count 220 (120.0-450.0) 10^3/uL MPV 11.3 H (7.0-11.0) fl pCO2 38 (35-45) mm/Hg pO2 108.0 H (80-100) mm/Hg HCO3 27.7 (21-28) mmol/L ABG pH 7.47 H (7.35-7.45) ABG Total CO2 28.9 H (22-28) mmol.L ABG O2 Saturation 99.1 H (95-98) % ABG O2 Content 15.0 (15-23) ML/dl ABG Base Excess 3.8 H (-2.0-3.0) mmol/L ABG Hemoglobin 11.0 L (11.7-17.4) g/dL ABG Carboxyhemoglobin 1.8 H (0.5-1.5) % POC ABG HHb (Measured) 0.9 (0-5) % ABG Methemoglobin 1.1 (0.0-3.0) % ABG O2 Capacity 15.1 L (16-24) mL/dl Hgb O2 Saturation 96.2 (95.0-98.0) % FiO2 40.0 % Sodium 146 (132-148) mmol/L Potassium 4.0 (3.6-5.0) mmol/L Chloride 111 H (95-110) mmol/L Carbon Dioxide 28 (21-33) mmol/L Anion Gap 11 (10-20) BUN 60 H (7-21) mg/dL Creatinine 1.3 (0.8-1.5) mg/dL Est GFR ( Amer) > 60 Est GFR (Non-Af Amer) 54 Random Glucose 107 (70-110) mg/dL Calcium 7.8 L (8.4-10.5) mg/dL Phosphorus 3.8 (2.5-4.5) mg/dL Magnesium 1.7 (1.7-2.2) mg/dL Total Bilirubin 1.5 H (0.2-1.3) mg/dL AST 127 H D (17-59) U/L ALT 527 H (7-56) U/L Alkaline Phosphatase 139 H D (38-126) U/L Total Protein 5.6 L (5.8-8.3) g/dL Albumin 2.4 L (3.0-4.8) g/dL Globulin 3.1 gm/dL Albumin/Globulin Ratio 0.8 L (1.1-1.8) Laboratory Results - last 24 hr 05/13/17 05/13/17 05/13/17 05:20 05:20 05:35 WBC 15.1 H RBC 3.68 Hgb 11.9 L Hct 36.3 L MCV 98.6 MCH 32.3 MCHC 32.8 RDW 15.9 H Plt Count 220 MPV 11.3 H pCO2 38 pO2 108.0 H HCO3 27.7 ABG pH 7.47 H ABG Total CO2 28.9 H ABG O2 Saturation 99.1 H ABG O2 Content 15.0 ABG Base Excess 3.8 H ABG Hemoglobin 11.0 L ABG Carboxyhemoglobin 1.8 H POC ABG HHb (Measured) 0.9 ABG Methemoglobin 1.1 ABG O2 Capacity 15.1 L Hgb O2 Saturation 96.2 FiO2 40.0 Sodium 146 Potassium 4.0 Chloride 111 H Carbon Dioxide 28 Anion Gap 11 BUN 60 H Creatinine 1.3 Est GFR ( Amer) > 60 Est GFR (Non-Af Amer) 54 Random Glucose 107 Calcium 7.8 L Phosphorus 3.8 Magnesium 1.7 Total Bilirubin 1.5 H AST 127 H D ALT 527 H Alkaline Phosphatase 139 H D Total Protein 5.6 L Albumin 2.4 L Globulin 3.1 Albumin/Globulin Ratio 0.8 L Critical Care Progress Note - Nutrition Nutrition: Nutrition Category Date Time Status NPO Diet [DIET] Diets 05/04/17 Breakfast Ordered Attending/Attestation - Attestation I have personally seen and examined this patient.: Yes I have fully participated in the care of the patient.: Yes I have reviewed all pertinent clinical information: Yes Notes (Text): 05/13/17 13:35 77 yo male with VDRF, recovering from septic shock, unable to wean from MV. LTAC for intermediate weaning, enteral nutrition, conservative fluid management, proetective lung vent strategy, avoid BZD and opioids but not in expense of treating pain, daily weaning trials. ccm time 40 min
[2017-05-13] MEDS: Micafungin 100 MG in Sodium Chloride 0.9% 100 ML IV SCH (09:52)
[2017-05-13] MEDS: Meropenem IV 1 gm in NS 50 ML IVPB SCH (09:52)
--- NOTE | 2017-05-13 09:56 | CP.PCM.PN ---
Subjective - Date & Time of Evaluation Date of Evaluation: 05/13/17 Time of Evaluation: 09:40 - Subjective Subjective: Continues to be on the ventilator, not in distress, easily arousable but not following commands. No fevers overnight. Objective - Vital Signs/Intake and Output Vital Signs (last 24 hours): Temp Pulse Resp BP Pulse Ox 99.2 F 154 H 17 141/88 100 05/12/17 18:00 05/13/17 06:05 05/13/17 06:55 05/13/17 06:00 05/13/17 06:55 Intake and Output: 05/13/17 05/13/17 06:59 18:59 Intake Total 63 Balance 63 - Medications Medications: Current Medications Albuterol/Ipratropium (Duoneb 3 Mg/0.5 Mg (3 Ml) Ud) 3 ml IH [id number] [facility] Last Admin: 05/13/17 01:06 Dose: 3 ml Chlorhexidine Gluconate (Peridex) 15 ml PO BID [facility] Last Admin: 05/12/17 17:26 Dose: 15 ml Diltiazem HCl (Cardizem) 60 mg PO QID [facility] Last Admin: 05/12/17 21:33 Dose: 60 mg Enoxaparin Sodium (Lovenox) 30 mg SC DAILY SILVIA PRN Reason: Protocol Hydralazine HCl (Apresoline) 10 mg IVP Q6 PRN PRN Reason: SBP> 160 Last Admin: 05/04/17 17:42 Dose: 10 mg Dexmedetomidine HCl (Precedex 4 Mcg/Ml (100 Ml)) 400 mcg in 100 mls @ 4.264 mls /hr IV .[id number] PRN; Protocol; 0.2 MCG/KG/HR PRN Reason: Sedation Last Titration: 05/13/17 06:14 Dose: 0.4 mcg/kg/hr, 8.528 mls/hr Micafungin Sodium 100 mg/ (Sodium Chloride) 100 mls @ 100 mls/hr IV DAILY SILVIA PRN Reason: Protocol Last Admin: 05/12/17 10:02 Dose: 100 mls/hr Meropenem (Merrem Iv 1 Gm Premix) 50 mls @ 100 mls/hr IVPB Q12 SILIVA PRN Reason: Protocol Stop: 05/13/17 10:16 Last Admin: 05/12/17 21:34 Dose: 100 mls/hr Midazolam HCl (Versed Inj) 4 mg IVP Q4H PRN PRN Reason: Agitation Last Admin: 05/06/17 04:40 Dose: 4 mg Morphine Sulfate (Morphine) 2 mg IVP Q3H PRN PRN Reason: Pain, severe (8-10) Last Admin: 05/10/17 04:53 Dose: 2 mg Nitroglycerin (Nitro-Bid 2% Oint) 1 ea TOP 0000,0600,1200,1800 SILVIA Last Admin: 05/13/17 05:42 Dose: 1 ea Pantoprazole Sodium (Protonix Inj) 40 mg IVP Q12 SILVIA Last Admin: 05/12/17 21:33 Dose: 40 mg - Labs Labs: 05/13/17 05:20 05/13/17 05:20 PT 19.0 SECONDS (9.4-12.5) H 05/09/17 06:40 INR 1.71 (0.93-1.08) H 05/09/17 06:40 APTT 32.9 Seconds (23.7-30.8) H 05/06/17 04:45 - Constitutional Appears: Other (intubated) - Head Exam Head Exam: NORMAL INSPECTION - ENT Exam Additional comments: ET tube in place - Neck Exam Neck Exam: absent: Meningismus - Respiratory Exam Respiratory Exam: Decreased Breath Sounds, Rales (scattered) - Cardiovascular Exam Cardiovascular Exam: +S1, +S2 - GI/Abdominal Exam GI & Abdominal Exam: Soft. absent: Tenderness Additional comments: dressings in place Assessment and Plan - Assessment and Plan (Free Text) Plan: Assessment severe sepsis S/P septic and cardiogenic shock with ventilator-dependent respiratory failure, renal failure, acute shock liver post-op, acute cerebral ischemia due to Chandrika glabrata fungemia and perforated gastric ulcer S/P ex- lap and gastric wedge resection POD #8, R/O bilateral lower lobe aspiration pneumonia in a patient still with ventilator-dependent respiratory failure post- op colon polyps COPD S/P bilateral knee surgery Plan continue Merrem day 9 and Mycamine (day 6); repeat blood cx is negative; PCT is elevated; will need Ophtho evaluation to rule out endophthalmitis - target 10- 14 days of Merrem MAX drain has been removed monitor and trend liver enzymes (slowly decreasing), Troponins overall prognosis is poor will continue to follow clinically
[2017-05-13] MEDS ORDERED: Enoxaparin 30 mg Syringe SC SCH (10:00)
--- NOTE | 2017-05-13 10:47 | RAD ---
HISTORY: intubated COMPARISON: 05/12/2017 FINDINGS: LUNGS: There is a hazy infiltrate at both lung bases and small pleural effusions. Endotracheal and nasogastric tubes are unchanged PLEURA: Small effusion CARDIOVASCULAR: Mild cardiomegaly OSSEOUS STRUCTURES: No significant abnormalities. VISUALIZED UPPER ABDOMEN: Normal. OTHER FINDINGS: None. IMPRESSION: There is a hazy infiltrate at both lung bases and small pleural effusions. Endotracheal and nasogastric tubes are unchanged
--- NOTE | 2017-05-13 12:17 | CP.PCM.PN ---
Subjective - Date & Time of Evaluation Date of Evaluation: 05/13/17 Time of Evaluation: 12:14 - Subjective Subjective: Surgery Pt s&e. Intubated. Possible LTAC today. Doesn't follow commands. Objective - Vital Signs/Intake and Output Vital Signs (last 24 hours): Temp Pulse Resp BP Pulse Ox 99.2 F 83 17 120/60 100 05/12/17 18:00 05/13/17 10:23 05/13/17 06:55 05/13/17 10:23 05/13/17 08:00 Intake and Output: 05/13/17 05/13/17 06:59 18:59 Intake Total 163 Output Total 1150 Balance -987 - Medications Medications: Current Medications Albuterol/Ipratropium (Duoneb 3 Mg/0.5 Mg (3 Ml) Ud) 3 ml IH [id number] [facility] Last Admin: 05/13/17 07:08 Dose: 3 ml Chlorhexidine Gluconate (Peridex) 15 ml PO BID [facility] Last Admin: 05/12/17 17:26 Dose: 15 ml Diltiazem HCl (Cardizem) 60 mg PO QID [facility] Last Admin: 05/13/17 10:23 Dose: 60 mg Enoxaparin Sodium (Lovenox) 30 mg SC DAILY [facility] PRN Reason: Protocol Last Admin: 05/13/17 09:53 Dose: 30 mg Hydralazine HCl (Apresoline) 10 mg IVP Q6 PRN PRN Reason: SBP> 160 Last Admin: 05/04/17 17:42 Dose: 10 mg Dexmedetomidine HCl (Precedex 4 Mcg/Ml (100 Ml)) 400 mcg in 100 mls @ 4.264 mls /hr IV .[id number] PRN; Protocol; 0.2 MCG/KG/HR PRN Reason: Sedation Last Titration: 05/13/17 06:14 Dose: 0.4 mcg/kg/hr, 8.528 mls/hr Micafungin Sodium 100 mg/ (Sodium Chloride) 100 mls @ 100 mls/hr IV DAILY [facility] PRN Reason: Protocol Last Admin: 05/13/17 09:52 Dose: 100 mls/hr Midazolam HCl (Versed Inj) 4 mg IVP Q4H PRN PRN Reason: Agitation Last Admin: 05/06/17 04:40 Dose: 4 mg Morphine Sulfate (Morphine) 2 mg IVP Q3H PRN PRN Reason: Pain, severe (8-10) Last Admin: 05/10/17 04:53 Dose: 2 mg Nitroglycerin (Nitro-Bid 2% Oint) 1 ea TOP 0000,0600,1200,1800 [facility] Last Admin: 05/13/17 05:42 Dose: 1 ea Pantoprazole Sodium (Protonix Inj) 40 mg IVP Q12 [facility] Last Admin: 05/13/17 09:53 Dose: 40 mg - Labs Labs: 05/13/17 05:20 05/13/17 05:20 PT 19.0 SECONDS (9.4-12.5) H 05/09/17 06:40 INR 1.71 (0.93-1.08) H 05/09/17 06:40 APTT 32.9 Seconds (23.7-30.8) H 05/06/17 04:45 - Constitutional Appears: Chronically Ill - Head Exam Head Exam: ATRAUMATIC, NORMAL INSPECTION, NORMOCEPHALIC - ENT Exam ENT Exam: Mucous Membranes Moist, Normal Exam - Neck Exam Neck Exam: Full ROM, Normal Inspection. absent: Lymphadenopathy - Respiratory Exam Respiratory Exam: Clear to Ausculation Bilateral, NORMAL BREATHING PATTERN - Cardiovascular Exam Cardiovascular Exam: REGULAR RHYTHM, +S1, +S2. absent: Murmur - GI/Abdominal Exam GI & Abdominal Exam: Soft, Normal Bowel Sounds. absent: Tenderness Additional comments: Incision D/I. Stapled. - Rectal Exam Rectal Exam: NORMAL INSPECTION - Extremities Exam Extremities Exam: Normal Capillary Refill - Back Exam Back Exam: NORMAL INSPECTION - Neurological Exam Neurological Exam: absent: Alert, Awake, Oriented x3 - Skin Skin Exam: Dry, Intact, Warm Assessment and Plan - Assessment and Plan (Free Text) Assessment: 77 M POD#9 s/p Ex-lap w. Gastric wedge resection for perforated ulcer, with post -op b/l infarcts -Tube feeds to goal via NGT -Social work still in process of trying to find family for decision making -Possible DC to LTAC -ICU management ARIAN Yarbrough (covering for Dr. Mccrary)
[2017-05-13 12:40] VITALS: BP 126/57; PULSE 77
--- NOTE | 2017-05-13 14:01 | PN ---
DATE: 05/13/2017 REASON FOR CONSULTATION AND FOLLOWUP: Status post acute abdomen, status post gastric perforation, status post wedge resection and repair of the stomach, hypotension, paroxysmal atrial fibrillation, rule out anoxic encephalopathy, vent dependent. SUBJECTIVE: The patient remains on the vent, spontaneously opens eyes, not follow simple command. PHYSICAL EXAMINATION: GENERAL: Not in distress. He does not follow simple command. He is spontaneously moving his hand. On vent, paroxysmal atrial fibrillation. VITAL SIGNS: As follows: Temperature afebrile, heart rate 85, blood pressure 130/74. HEENT: PERRLA. Extraocular muscles intact. NECK: Supple. No carotid bruit or thyromegaly. CHEST: Clear to auscultation. HEART: S1 and S2, regular. ABDOMEN: Soft. EXTREMITIES: Clubbing and cyanosis negative.. LABORATORY DATA: Blood workup as follows: WBC 15.1, hemoglobin 11.9, hematocrit 36.3, platelet count 220. Chemistry shows sodium 140, potassium 4, chloride 111, carbon dioxide 28, anion gap of 11, BUN 60, creatinine 1.3. Total bilirubin 1.2, AST 127, ALT 527, total protein 5.6, albumin 2.4, albumin-globulin ratio 0.8. IMPRESSION: Status post gastrointestinal bleed, status post acute abdomen, status post gastric perforation spontaneously, perforation of hollow viscus, status post exploratory laparotomy, repair and wedge resection of the abdomen, paroxysmal atrial fibrillation, non-ST segment myocardial infarction, hyponatremia resolved; possible anoxic encephalopathy, vent dependent. RECOMMENDATIONS: Continue vent management, strongly consider PEG and trach if prolonged intubation is required. Start low dose of Lovenox to prevent DVT prophylaxis if no further bleeding episode is noted and if H and H remained stable, which is actually stable from the last couple of days. Continue hydralazine. Continue Cardizem. If It is okay from GI point of view, the patient will be started p.o. through the NG tube. Further recommendations as per nephrology. Overall, the patient's condition is critical. Long-term prognosis is guarded. We will follow with you. Thank you Dr. Bowser for providing us the opportunity in taking care Lyndon Blancas. Supa Nick MD
--- NOTE | 2017-05-13 15:36 | CP.PCM.PN ---
Subjective - Date & Time of Evaluation Date of Evaluation: 05/13/17 Time of Evaluation: 09:45 - Subjective Subjective: Seen and examined at the bedside earlier this morning, the chart was reviewed. Patient remains to tolerate the NG tube feedings at 60 cc an hour. Remains intubated. No reports of melena or overt GI bleed. Patient had smear of stool this morning. No acute overnight events reported. Objective - Vital Signs/Intake and Output Vital Signs (last 24 hours): Temp Pulse Resp BP Pulse Ox 99.2 F 77 17 126/57 L 100 05/12/17 18:00 05/13/17 12:00 05/13/17 06:55 05/13/17 12:00 05/13/17 12:00 Intake and Output: 05/13/17 05/13/17 06:59 18:59 Intake Total 163 Output Total 1150 Balance -987 - Labs Labs: 05/13/17 05:20 05/13/17 05:20 PT 19.0 SECONDS (9.4-12.5) H 05/09/17 06:40 INR 1.71 (0.93-1.08) H 05/09/17 06:40 APTT 32.9 Seconds (23.7-30.8) H 05/06/17 04:45 - Constitutional Appears: No Acute Distress - Eye Exam Eye Exam: Normal appearance. absent: Scleral icterus - ENT Exam ENT Exam: Mucous Membranes Moist - Respiratory Exam Respiratory Exam: Decreased Breath Sounds, Wheezes, NORMAL BREATHING PATTERN. absent: Respiratory Distress Additional comments: intubated - Cardiovascular Exam Cardiovascular Exam: +S1, +S2 - GI/Abdominal Exam GI & Abdominal Exam: Soft, Normal Bowel Sounds. absent: Guarding, Tenderness, Rebound Additional comments: incision open to air minimal drain on lower part of the incision. No bleeding noted. - Extremities Exam Additional comments: bilateral upper extremity edema - Neurological Exam Neurological Exam: Awake (eyes open but does not follow commands and nonverbal) - Skin Skin Exam: Dry, Warm Assessment and Plan - Assessment and Plan (Free Text) Assessment: Assessment: Respiratory failure, remains intubated GI bleed, found to have perforated gastric ulcer,s/p gastric wedge ulcer Acute cerebral infarct Bilateral pleural effusion/consolidation Acute renal failure Atrial fibrillation with RVR h/o chronic alcohol use Anemia, s/p blood transfusion Elevated LFT,likely secondary to shock liver Status post fall,w/ multiple rib fractures S/P Hyponatremia NSTEMI COPD H/O Colon polyps PLAN: NPO, continue IVF Continue NG tube feeds at 60, monitor residual continue PPI on IV antibiotics as per ID on Lovenox SCD to lower extremities monitor h/h, Transfuse as necessary trend LFTs, improving as per surgery, icu team, ID plan is to transfer to LTAC, possibly today Seen and discussed with Dr. Lemus.
--- NOTE | 2017-05-14 08:54 | DS ---
HISTORY OF PRESENT ILLNESS: The patient is a 77-year-old male who had developed sepsis secondary to a gastric ulcer. The patient a septic shock he was given IV antibiotics, fluids and had improvement of the symptoms. He also had a CAT scan that showed CVA at the posterior parietal lobe. He is going to LTAC for further management. PHYSICAL EXAMINATION: VITAL SIGNS: Temperature is 99.2, pulse of 79, blood pressure 126/57, respiration is 20. GENERAL: The patient is lying in bed, flat, comfortable. HEENT: No oral lesion. Anicteric sclerae. Moist mucosa. . NECK: No JVD, adenopathy, or thyromegaly. CARDIOVASCULAR: S1 and S2, regular. No murmurs, rubs, or gallops. LUNGS: Clear to auscultation bilaterally. No wheeze, rales, or rhonchi. ABDOMEN: Bowel sounds are positive, soft, nontender and nondistended. EXTREMITIES: No cyanosis, clubbing or edema. ASSESSMENT: 1. Septic shock improved. 2. Non-ST elevation, resolved. 3. Atrial fibrillation, stable. 4. Transaminitis improving. 5. 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 6. Hyponatremia, improved. 7. Hypokalemia, improved. 8. Fungemia. 9. Fall. PLAN: The patient is currently receiving feedings from the NG tube. The patient is on BiPAP, he is getting Protonix daily. He is getting water boluses. Overall prognosis is poor. The patient is going to go to LTAC today. Jarocho Bowesr MD
== END 2017-05-13 12:00 | DRG 264 ==
LOC: ED 12:12 → ERH 14:26 → CCU 16:55 → 2RSO 05-01 17:59 → CCU 05-04 09:55
PROVIDERS: ADMIT Internal Medicine Nephrology; ATTEND Internal Medicine Nephrology
PROC: 0DBL0ZZ Excision of Transverse Colon, Open Approach (ICD-10-PCS; 2017-05-04)
PROC: 30233N1 Transfusion of Nonautologous Red Blood Cells into Peripheral Vein, Percutaneous Approach (ICD-10-PCS; 2017-05-04)
PROC: 0DB60ZZ Excision of Stomach, Open Approach (ICD-10-PCS; principal; 2017-05-04 14:15)
PROC: 5A1955Z Respiratory Ventilation, Greater than 96 Consecutive Hours (ICD-10-PCS; 2017-05-05)
PROC: 0BH18EZ Insertion of Endotracheal Airway into Trachea, Via Natural or Artificial Opening Endoscopic (ICD-10-PCS; 2017-05-05)
PROC: 06HY33Z Insertion of Infusion Device into Lower Vein, Percutaneous Approach (ICD-10-PCS; 2017-05-08)
DX: I21.4 Non-ST elevation (NSTEMI) myocardial infarction (principal); I63.9 Cerebral infarction, unspecified; K72.00 Acute and subacute hepatic failure without coma; N17.0 Acute kidney failure with tubular necrosis; R65.21 Severe sepsis with septic shock; R57.0 Cardiogenic shock; A41.9 Sepsis, unspecified organism; S22.069A Unspecified fracture of T7-T8 vertebra, initial encounter for closed fracture; J95.821 Acute postprocedural respiratory failure; K63.1 Perforation of intestine (nontraumatic); E43 Unspecified severe protein-calorie malnutrition; K25.5 Chronic or unspecified gastric ulcer with perforation; K25.6 Chronic or unspecified gastric ulcer with both hemorrhage and perforation; J15.9 Unspecified bacterial pneumonia; R40.20 Unspecified coma; J90 Pleural effusion, not elsewhere classified; B49 Unspecified mycosis; E87.0 Hyperosmolality and hypernatremia; E87.4 Mixed disorder of acid-base balance; E87.1 Hypo-osmolality and hyponatremia; D62 Acute posthemorrhagic anemia; I48.92 Unspecified atrial flutter; J44.0 Chronic obstructive pulmonary disease with (acute) lower respiratory infection; Z99.11 Dependence on respirator [ventilator] status; S22.42XA Multiple fractures of ribs, left side, initial encounter for closed fracture; I97.821 Postprocedural cerebrovascular infarction following other surgery; E78.5 Hyperlipidemia, unspecified; E87.6 Hypokalemia; F17.210 Nicotine dependence, cigarettes, uncomplicated; G89.29 Other chronic pain; I08.1 Rheumatic disorders of both mitral and tricuspid valves; I10 Essential (primary) hypertension; I25.10 Atherosclerotic heart disease of native coronary artery without angina pectoris; I25.2 Old myocardial infarction; I48.0 Paroxysmal atrial fibrillation; K57.30 Diverticulosis of large intestine without perforation or abscess without bleeding; K63.5 Polyp of colon; K66.8 Other specified disorders of peritoneum; R29.6 Repeated falls; W19.XXXA Unspecified fall, initial encounter; Y95 Nosocomial condition; Z66 Do not resuscitate; Z79.899 Other long term (current) drug therapy; Z87.11 Personal history of peptic ulcer disease; Z91.81 History of falling; R74.0 Nonspecific elevation of levels of transaminase and lactic acid dehydrogenase [LDH]; Z78.1 Physical restraint status